=== PATIENT | male | born 1955 ===

== ENCOUNTER 2020-05-04 12:31 | Outpatient (REF) | payer MEDICARE, MEDICAID, SELFPAY ==
--- NOTE | 2020-05-04 13:30 | CT_ITS ---
EXAMINATION: CT CHEST WITHOUT CONTRAST CLINICAL INFORMATION: Pulmonary nodules COMPARISON: 01/20/2020 TECHNIQUE: A noncontrast CT of the chest is performed with sagittal and coronal reformats. This CT examination was performed using dose optimization techniques as appropriate, variously including the following: *Automated exposure control *Adjustment of mA and/or kV according to patient size (this includes techniques or standardized protocols for targeted exams where dose is matched to indication/reason for exam; i.e. extremities or head) *Use of iterative reconstruction technique DLP: 191 FINDINGS: Moderate centrilobular emphysema. Again demonstrated are multiple subcentimeter nodules which are predominantly peripheral and subpleural. Largest nodule which is pleural-based in the posterior right upper lobe on axial image 236 measures approximately 7 mm and is stable. Other additional previously described nodules are stable. There is a new 4 mm nodule in the left upper lobe on image 170. No mediastinal, hilar, or axillary lymphadenopathy. No pericardial or pleural effusion. IMPRESSION: Centrilobular emphysema with several bilateral pulmonary nodules, the largest measuring 7 mm in the right upper lobe posteriorly. These nodules are stable. However, there is a new 4 mm nodule in the left upper lobe. A follow-up chest CT in 6-12 months is recommended.
== END 2020-05-04 12:32 | disposition home or self-care (01) ==
LOC: HO.CT 12:31
PROVIDERS: PCP Nurse Practitioner Family; Visit Provider Surgery
DX: R91.1 Solitary pulmonary nodule (principal)
CPT/HCPCS: 71250

== ENCOUNTER → 2020-05-19 10:39 | Outpatient (BNVA) | payer MEDICARE, MEDICAID, SELFPAY | PROVIDERS: PCP Nurse Practitioner Family; Visit Provider Surgery | DX: R91.8 Other nonspecific abnormal finding of lung field (principal); F17.200 Nicotine dependence, unspecified, uncomplicated; Z79.899 Other long term (current) drug therapy | CPT/HCPCS: 99214 ==

== ENCOUNTER 2020-06-03 08:48 | Outpatient (REF) | payer MEDICARE, MEDICAID, SELFPAY | END 2020-06-03 08:49 | disposition home or self-care (01) | LOC: HO.LAB 08:48 | PROVIDERS: Visit Provider Internal Medicine | DX: Z20.828 Contact with and (suspected) exposure to other viral communicable diseases (principal) | CPT/HCPCS: U0003 ==

== ENCOUNTER → 2020-06-08 09:27 | Outpatient (BNVA) | payer MEDICARE, MEDICAID, SELFPAY | PROVIDERS: PCP Nurse Practitioner Family; Visit Provider Internal Medicine | DX: R91.8 Other nonspecific abnormal finding of lung field (principal); J44.9 Chronic obstructive pulmonary disease, unspecified; F17.210 Nicotine dependence, cigarettes, uncomplicated | CPT/HCPCS: 99202; 99212 ==

== ENCOUNTER → 2020-07-13 10:40 | Outpatient (BNVA) | payer MEDICARE, MEDICAID, SELFPAY | PROVIDERS: PCP Nurse Practitioner Family; Referring Provider Nurse Practitioner Family; Visit Provider Internal Medicine | DX: J44.9 Chronic obstructive pulmonary disease, unspecified (principal); R05 Cough; R91.8 Other nonspecific abnormal finding of lung field; F17.200 Nicotine dependence, unspecified, uncomplicated; Z79.51 Long term (current) use of inhaled steroids; Z71.6 Tobacco abuse counseling | CPT/HCPCS: 99212 ==

== ENCOUNTER → 2020-10-27 09:07 | Outpatient (BNVA) | payer MEDICARE, MEDICAID, SELFPAY | PROVIDERS: PCP Nurse Practitioner Family; Visit Provider Nurse Practitioner Gerontology | DX: E11.42 Type 2 diabetes mellitus with diabetic polyneuropathy (principal); Z79.4 Long term (current) use of insulin; E78.5 Hyperlipidemia, unspecified; I10 Essential (primary) hypertension | CPT/HCPCS: 82947; 99212 ==

== ENCOUNTER 2020-11-03 10:06 | Outpatient (REF) | payer MEDICARE, MEDICAID, SELFPAY ==
--- NOTE | ~2020-11-03 | CT_ITS ---
EXAMINATION: CT CHEST WITHOUT CONTRAST CLINICAL INFORMATION: Follow-up pulmonary nodules. COMPARISON: CT chest 05/04/2020 TECHNIQUE: Multidetector volumetric CT imaging of the chest was done. Axial MIP volume rendering provided. Sagittal and coronal reformatted images were obtained. This CT examination was performed using dose optimization techniques as appropriate, variously including the following: Automated exposure control adjustment of mA and/or kV according to patient size (this includes techniques or standardized protocols for targeted exams where dose is matched to indication/reason for exam; i.e. extremities or head)Use of iterative reconstruction technique DLP: 162 mGy-cm FINDINGS: PBX TECHNICIAN: Well-expanded lungs. LUNGS: There is centrilobular emphysema with multiple bilateral small pulmonary nodules. There is a 7 mm pleural-based nodule in the right upper lobe axial image 198/5. There are several additional pulmonary nodules seen. All these nodules are stable compared to last exam 05/04/2020. There are no new nodules visualized. There is bibasilar atelectasis. MEDIASTINUM: The thyroid lobes are symmetric and normal. The central trachea and the bronchi are widely patent. Heart size and the great vessels are of normal caliber. There is no pericardial effusion. There are coronary artery calcifications present. PLEURA: There is no pleural effusion. No pleural mass or thickening. AXILLA: No lymphadenopathy. UPPER ABDOMEN: Visualized liver, spleen, pancreas and bilateral adrenal glands are unremarkable. OSSEOUS STRUCTURES: No lytic or sclerotic process is seen. There is mild ventral spondylosis of the lower dorsal spine. No lytic process. CT/CT chest wo con IMPRESSION: Centrilobular emphysema with multiple bilateral pulmonary nodules. The largest pulmonary nodule in the right upper lobe measuring 7 mm is stable. Rest of pulmonary nodules are stable as well. No abnormal mediastinal adenopathy. Recommend follow-up CT in 18-24 months.
== END 2020-11-03 10:07 | disposition home or self-care (01) ==
LOC: HO.CT 10:06
PROVIDERS: Visit Provider Surgery
DX: R91.1 Solitary pulmonary nodule (principal)
CPT/HCPCS: 71250

== ENCOUNTER → 2020-12-01 10:26 | Outpatient (BNVA) | payer MEDICARE, MEDICAID, SELFPAY | PROVIDERS: PCP Nurse Practitioner Family; Visit Provider Surgery | DX: R91.8 Other nonspecific abnormal finding of lung field (principal); J44.9 Chronic obstructive pulmonary disease, unspecified; F17.210 Nicotine dependence, cigarettes, uncomplicated; Z79.899 Other long term (current) drug therapy | CPT/HCPCS: 99212 ==

== ENCOUNTER → 2021-02-27 11:25 | Outpatient (BNVA) | payer MEDICARE, MEDICAID, SELFPAY | PROVIDERS: PCP Nurse Practitioner Family; Visit Provider Nurse Practitioner Gerontology | DX: E11.42 Type 2 diabetes mellitus with diabetic polyneuropathy (principal); E78.5 Hyperlipidemia, unspecified; I10 Essential (primary) hypertension; Z79.4 Long term (current) use of insulin | CPT/HCPCS: 82947; 99212 ==

== ENCOUNTER 2021-03-14 11:13 | Outpatient (REF) | payer MEDICARE, MEDICAID, SELFPAY ==
--- NOTE | ~2021-03-14 | XR_ITS ---
EXAMINATION: XR SHOULDER, RIGHT XR HUMERUS, RIGHT CLINICAL INFORMATION: Pain following trauma. COMPARISON: None TECHNIQUE: AP, scapular Y, and creation views of the right shoulder. AP and lateral views of the right humerus. FINDINGS: Right shoulder: No acute fracture or dislocation. Acromioclavicular marginal osteophytes with superior dystrophic calcification. Small lateral subacromial spurs. Small acromial glenohumeral marginal osteophytes. No osseous erosion. Right humerus: No acute fracture or dislocation. No lytic or blastic osseous lesion. No abnormal soft tissue calcification. XR/XR shoulder RT min 2V IMPRESSION: Right shoulder: Moderate acromioclavicular osteoarthritis. Dystrophic calcification superior to the acromioclavicular joint. Mild cortical humeral osteoarthritis. Right humerus: No acute osseous abnormality.
--- NOTE | ~2021-03-14 | XR_ITS ---
EXAMINATION: XR SHOULDER, RIGHT XR HUMERUS, RIGHT CLINICAL INFORMATION: Pain following trauma. COMPARISON: None TECHNIQUE: AP, scapular Y, and creation views of the right shoulder. AP and lateral views of the right humerus. FINDINGS: Right shoulder: No acute fracture or dislocation. Acromioclavicular marginal osteophytes with superior dystrophic calcification. Small lateral subacromial spurs. Small acromial glenohumeral marginal osteophytes. No osseous erosion. Right humerus: No acute fracture or dislocation. No lytic or blastic osseous lesion. No abnormal soft tissue calcification. XR/XR humerus RT IMPRESSION: Right shoulder: Moderate acromioclavicular osteoarthritis. Dystrophic calcification superior to the acromioclavicular joint. Mild cortical humeral osteoarthritis. Right humerus: No acute osseous abnormality.
== END 2021-03-14 11:14 | disposition home or self-care (01) ==
LOC: HO.HMGCX 11:13
PROVIDERS: PCP Nurse Practitioner Family; Visit Provider Nurse Practitioner Family
DX: Z13.89 Encounter for screening for other disorder (principal)
CPT/HCPCS: 73030; 73060

== ENCOUNTER → 2021-07-16 13:06 | Outpatient (BNVA) | payer MEDICARE, MEDICAID, SELFPAY | PROVIDERS: PCP Nurse Practitioner Family; Visit Provider Nurse Practitioner Gerontology | DX: E11.42 Type 2 diabetes mellitus with diabetic polyneuropathy (principal); E78.5 Hyperlipidemia, unspecified; I10 Essential (primary) hypertension; Z79.4 Long term (current) use of insulin | CPT/HCPCS: Q3014 ==

== ENCOUNTER 2021-09-23 11:28 | Emergency (ER) | payer MEDICARE, MEDICAID, SELFPAY ==
[2021-09-23 11:30] VITALS: BP 151/70; PULSE 77; RESP 16; TEMP 36.7; O2SAT 99; BMI 24.2
== END 2021-09-23 11:51 | disposition left against medical advice (07) ==
PROVIDERS: Emergency Provider Emergency Medicine; PCP Nurse Practitioner Family
DX: R33.9 Retention of urine, unspecified (principal)
CPT/HCPCS: 99281

== ENCOUNTER → 2021-10-15 14:07 | Outpatient (BNVA) | payer MEDICARE, MEDICAID, SELFPAY | PROVIDERS: PCP Nurse Practitioner Family; Visit Provider Registered Nurse Diabetes Educator | DX: E11.42 Type 2 diabetes mellitus with diabetic polyneuropathy (principal); E78.5 Hyperlipidemia, unspecified; F17.200 Nicotine dependence, unspecified, uncomplicated; Z45.89 Encounter for adjustment and management of other implanted devices | CPT/HCPCS: 95250 ==

== ENCOUNTER 2021-10-17 10:23 | Outpatient (REF) | payer MEDICARE, MEDICAID, SELFPAY ==
[2021-10-17 12:11] LABS: Estimated Average Glucose 146 mg/dL; Hemoglobin A1c % 6.7 %
[2021-10-17 12:36] LABS: Alanine Aminotransferase 11 U/L (0-40); Albumin Level 3.6 g/dL (3.5-5.0); Alkaline Phosphatase 57 U/L (39-117); Anion Gap 12 (12-20); Aspartate Amino Transferase 14 U/L (5-37); Bilirubin Total 0.4 mg/dL (0.0-1.0); Blood Urea Nitrogen 13 mg/dL (9-16); Calcium 9.4 mg/dL (8.4-10.2); Carbon Dioxide 28 mmol/L (22-29); Chloride 94 mmol/L (96-108); Cholesterol 90 mg/dL; Estimated Glomerular Filt Rate > 60; Glucose Fasting 181 mg/dL (60-99); HDL Cholesterol 36 mg/dL; LDL Cholesterol Calculated 28 mg/dl; Potassium 4.2 mmol/L (3.3-5.1); Sodium 130 mmol/L (135-145); Total Protein 7.3 g/dL (6.5-8.0); Triglycerides 134 mg/dL
[2021-10-17 12:41] LABS: Creatinine Urine 52.24 mg/dL; Microalbum/Creatinine Ratio Ur 11.4 ug/mg cr
[2021-10-18 06:40] LABS: LDL Cholesterol Direct 32 mg/dL (<100)
== END 2021-10-17 10:24 | disposition home or self-care (01) ==
LOC: HO.LAB 10:23
PROVIDERS: Visit Provider Nurse Practitioner Gerontology
DX: E11.42 Type 2 diabetes mellitus with diabetic polyneuropathy (principal)
CPT/HCPCS: 36415; 80053; 80061; 82043; 83036; 83721

== ENCOUNTER → 2021-10-29 14:23 | Outpatient (BNVA) | payer MEDICARE, MEDICAID, SELFPAY | PROVIDERS: Visit Provider Nurse Practitioner Gerontology | DX: E11.42 Type 2 diabetes mellitus with diabetic polyneuropathy (principal); E78.5 Hyperlipidemia, unspecified; I10 Essential (primary) hypertension; Z79.4 Long term (current) use of insulin | CPT/HCPCS: 82947; 99212 ==

== ENCOUNTER 2021-11-09 11:14 | Outpatient (REF) | payer MEDICARE, MEDICAID, SELFPAY ==
--- NOTE | ~2021-11-09 | CT_ITS ---
EXAMINATION: CT CHEST WITHOUT CONTRAST CLINICAL INFORMATION: Follow-up pulmonary nodules COMPARISON: Previous chest CT November 2020 TECHNIQUE: Multidetector volumetric CT imaging of the chest was done. Axial MIP volume rendering provided. Sagittal and coronal reformatted images were obtained. This CT examination was performed using dose optimization techniques as appropriate, variously including the following: *Automated exposure control *Adjustment of mA and/or kV according to patient size (this includes techniques or standardized protocols for targeted exams where dose is matched to indication/reason for exam; i.e. extremities or head) *Use of iterative reconstruction technique DLP: 181 mGy-cm FINDINGS: LUNGS: Exam is limited due to artifact from respiratory motion. There is evidence of emphysema. There are multiple predominantly calcified pulmonary nodules that are stable. Largest pulmonary nodule measures 6 mm in the right upper lobe axial image 177 series 5. There are increased peripheral reticular markings and cystic changes are seen questionable for mild interstitial disease. No endobronchial or endotracheal lesion is seen. MEDIASTINUM: There is mild coronary artery calcification. The mediastinum is otherwise normal. PLEURA: There is no pleural effusion. No pleural mass or thickening. AXILLA: No lymphadenopathy. UPPER ABDOMEN: There are small calcifications in the pancreas. OSSEOUS STRUCTURES: There are degenerative changes of the spine. CT/CT chest wo con IMPRESSION: Limited exam due to respiratory motion. Stable pulmonary nodules. Emphysema. Question mild interstitial lung disease. Fleischner guidelines were followed.
== END 2021-11-09 11:15 | disposition home or self-care (01) ==
LOC: HO.CT 11:14
PROVIDERS: PCP Nurse Practitioner Family; Visit Provider Surgery
DX: R91.8 Other nonspecific abnormal finding of lung field (principal)
CPT/HCPCS: 71250

== ENCOUNTER 2021-11-26 10:04 | Outpatient (REF) | payer MEDICARE, MEDICAID, SELFPAY ==
[2021-11-26 12:46] LABS: Prostate Specific Antigen Scr 0.09 ng/mL (<0.05-4.0)
== END 2021-11-26 10:05 | disposition home or self-care (01) ==
LOC: HO.HMGCLDS 10:04
PROVIDERS: PCP Nurse Practitioner Family; Visit Provider Nurse Practitioner Family
DX: Z12.5 Encounter for screening for malignant neoplasm of prostate (principal)
CPT/HCPCS: 36415; 84153

== ENCOUNTER → 2021-11-30 11:13 | Outpatient (BNVA) | payer MEDICARE, MEDICAID, SELFPAY | PROVIDERS: PCP Nurse Practitioner Family; Visit Provider Surgery | DX: R91.8 Other nonspecific abnormal finding of lung field (principal); F17.210 Nicotine dependence, cigarettes, uncomplicated | CPT/HCPCS: 99212 ==

== ENCOUNTER 2022-08-18 17:02 | Emergency (ER) | payer MEDICARE, MEDICAID, SELFPAY ==
--- NOTE | ~2022-08-18 | CT_ITS ---
EXAMINATION: CT CHEST WITHOUT CONTRAST CLINICAL INFORMATION: Productive cough COMPARISON: 11/09/2021 TECHNIQUE: Multidetector volumetric CT imaging of the chest was done. Axial MIP volume rendering provided. Sagittal and coronal reformatted images were obtained. This CT examination was performed using dose optimization techniques as appropriate, variously including the following: *Automated exposure control *Adjustment of mA and/or kV according to patient size (this includes techniques or standardized protocols for targeted exams where dose is matched to indication/reason for exam; i.e. extremities or head) *Use of iterative reconstruction technique DLP: 328 mGy-cm FINDINGS: The thoracic inlet is felt to be comparable to previous. The axillary regions are unremarkable. Partially imaged upper abdominal structures once again show full appearing adrenal glands. Centrally coronary calcifications are noted. There is no bulky adenopathy. This is a noncontrast study but the hilar regions are felt to be comparable to previous. Imaging the lung lin. Right lung; Once again significant COPD. Motion significantly limits this exam. Right basilar opacity consistent with infiltrate. Pleural-based nodularity on image 126. New from previous. Measures 3 mm. Stable appearing nodule on image 180. Adjacent to the pleura. Measures 5 to 6 mm. Posterior pleural-based nodule on image 189. This appears slightly more prominent than previous. Measures 7 mm. Attention to follow-up. Stable-appearing 4 mm nodule on image 220 Stable 3 mm pleural nodule on image 228 Nodule on image 239 anterior. Appears slightly more prominent than previous. Measures 5 mm. Attention to follow-up. There is a new pleural-based nodule on image 277. 3 mm. Again motion limits evaluation in the lower lung zones. Increasing pleural-based nodule on image 285 measures 4 mm Nodule on image 372 measures 6 mm. Measures slightly more prominent than previous at which time it measured 5 mm. Left lung; Again significant COPD. There is motion here which degrades imaging. Stable appearing 4 mm nodule on image 140 Increasing density at the left base consistent with atelectasis or infiltrate. Possible 5 mm nodule posterior on image 274. Difficult to say if this was present previously. There was density here previously. Measures 5 mm. Some increasing probable chronic change in the lingula. Review of the bone windows does not demonstrate evidence for bony lesion. CT/CT chest wo IV con IMPRESSION: COPD here and motion limits this exam but I suspect right lower lobe infiltrate greater than left lower lobe. In addition multiple areas of nodularity. Some are new from previous while others are stable and still others appear slightly more prominent. Recommendation is low-dose noncontrast study in 3 months for continued evaluation.
--- NOTE | ~2022-08-18 | XR_ITS ---
EXAMINATION: XR CHEST CLINICAL INFORMATION: Chest pain, cough COMPARISON: Gar[employer] film from CT dated 11/09/2021 TECHNIQUE: Frontal view of the chest was obtained. FINDINGS: Subsegmental atelectasis at the right lung base. On the left some ill-defined opacity left midlung and left base consistent with small areas of infiltrate or atelectasis. The cardiac silhouette is within normal limits. The hilar regions do not appear pathologically enlarged. XR/XR chest 1V IMPRESSION: Left midlung and left basilar infiltrate. Subsegmental atelectasis at the right base. Follow-up films recommended after treatment to assess for resolution
[2022-08-18 17:10] VITALS: BP 137/79; PULSE 81; RESP 17; TEMP 36.7; O2SAT 96; BMI 29.0
--- NOTE | 2022-08-18 17:11 | ECG_ITS ---
Test Reason : CHEST PAIN Blood Pressure : / mmHG Vent. Rate : 076 BPM Atrial Rate : 076 BPM P-R Int : 172 ms QRS Dur : 098 ms QT Int : 364 ms P-R-T Axes : 073 014 045 degrees QTc Int : 409 ms Sinus rhythm with Premature ventricular complexes Otherwise normal ECG When compared with ECG of 17-MAR-2018 07:51, Premature ventricular complexes is now Present Referred By: Nicole Cardona Electronically Signed By:LYNDSAY GAMING MD
--- NOTE | 2022-08-18 17:12 | ED.GENADULT ---
HPI - General Adult General Chief complaint: General Medical Stated complaint: Chest pain w/ cough per EMS Time Seen by Provider: 08/18/22 17:11 Source: patient and EMS Mode of arrival: EMS Limitations: no limitations History of Present Illness HPI narrative: This is a 67-year-old male past medical history significant for emphysema, COPD, hypertension, hyperlipidemia, schizophrenia, current daily smoker, diabetes presenting to the emergency department from retirement complaints chest pain, shortness of breath and cough worsening over the past three days. According to patient chest pain is intermittent in nature, sharp, substernal and nonradiating. Shortness of breath both at rest and with exertion. Patient reports productive cough. Reports multiple sick contacts at home w/ similar symptoms. Denies fevers, chills, nausea, vomiting, abdominal pain, headache, vision changes, dizziness, weakness. Related Data Home Medications Medication Instructions Recorded Confirmed benztropine 2 mg tablet 2 mg PO BID 11/22/20 08/18/22 propranolol 20 mg tablet 10 mg PO DAILY 02/27/21 08/18/22 divalproex 500 mg tablet,extended 1,500 mg PO BEDTIME 07/16/21 08/18/22 release 24 hr olanzapine 10 mg tablet 10 mg PO BID 07/16/21 08/18/22 pen needle, diabetic 31 gauge x #50 ea 07/16/21 04/03/2210/17 (BD Ultra-Fine Mini Pen Needle) fluphenazine HCl 5 mg tablet 5 mg PO BID 11/26/21 08/18/22 gabapentin 300 mg capsule 300 mg PO TID 11/26/21 08/18/22 vitamin E mixed 1,000 unit capsule 1,000 unit PO DAILY 11/26/21 08/18/22 acetaminophen 650 mg 650 mg PO Q6H PRN pain 08/18/22 08/18/22 tablet,extended release (Tylenol 8 Hour) cholecalciferol (vitamin D3) 125 125 mcg PO DAILY 08/18/22 08/18/22 mcg (5,000 unit) capsule dulaglutide 0.75 mg/0.5 mL 0.75 mg subcut FR@0900 08/18/22 08/18/22 subcutaneous pen injector (Trulicity) omeprazole 20 mg capsule,delayed 20 mg PO BID 08/18/22 08/18/22 release propranolol 20 mg tablet 1 tab PO BEDTIME 08/18/22 08/18/22 sennosides 8.6 mg tablet (senna) 17.2 mg PO DAILY PRN Constipation 08/18/22 08/18/22 Previous Rx's Medication Instructions Recorded blood-glucose meter (FreeStyle #1 ea 05/24/21 Lite Meter kit) insulin degludec 100 unit/mL (3 10 unit (0.1 mL) subcut DAILY #15 01/31/22 mL) subcutaneous pen (Tresiba mL FlexTouch U-100 insulin) atorvastatin 10 mg tablet 10 mg PO DAILY #30 tabs 03/12/22 docusate sodium 100 mg capsule 100 mg PO DAILY PRN constipation 03/28/22 #30 caps lisinopril 10 1 tab PO DAILY 30 days #30 tabs 07/11/22 mg-hydrochlorothiazide 12.5 mg tablet amlodipine 10 mg tablet 10 mg PO DAILY 90 days #90 tabs 07/30/22 umeclidinium 62.5 mcg/actuation 1 inh PO DAILY #30 ea 08/12/22 blister powder for inhalation (Incruse Ellipta) aspirin 81 mg tablet,delayed 81 mg PO DAILY #90 tabs 08/13/22 release (Adult Low Dose Aspirin) albuterol sulfate 90 mcg/actuation 2 inh inhalation Q4-6H PRN 08/18/22 breath activated powder inhaler shortness of breath or wheezing #1 ea benzonatate 100 mg capsule 100 mg PO BID PRN cough #20 caps 08/18/22 prednisone 20 mg tablet 20 mg PO DAILY 5 days #5 tabs 08/18/22 Allergies Allergy/AdvReac Type Severity Reaction Status Date / Time No Known Allergies Allergy Mild NOT Verified 04/03/22 12:19 APPLICABLE Review of Systems Review of Systems: Constitutional : No Weight loss, No Fever, No Chills, No Fatigue, No Malaise ENT/Mouth : No sore throat, No Rhinorrhea Eyes: No Eye Pain, No Swelling, No Redness Cardiovascular : + Chest Pain, + SOB, No Dyspnea on Exertion, No Orthopnea, No Edema, No Palpitations Respiratory : + Cough, No Sputum, No Wheezing Gastrointestinal : No Nausea, No Vomiting, No Diarrhea, No Constipation, No abdominal Pain, No Hematochezia, No Melena Genitourinary : No Dysuria, No Urinary Frequency, No Hematuria, Musculoskeletal : No joint pain, No Myalgias, No Joint Swelling Skin : No Skin Lesions, No rash Neuro : No Weakness, No Numbness, No Dizziness, No Headache Psych : No Anxiety/Panic, No Depression All other systems reviewed and are negative Yes all other systems are reviewed and are negative [facility] Past Medical History Attestation statement: The following information was validated with the patient. Source: old records reviewed and nursing notes reviewed Medical History Centrilobular emphysema COPD (chronic obstructive pulmonary disease) Cough Essential hypertension Hyperlipidemia LDL goal <70 Multiple pulmonary nodules Schizophrenia Smoker Type 2 diabetes mellitus with diabetic polyneuropathy Family History Family History Father Prostate cancer Diabetes Mother Diabetes Hypertension CVD (cardiovascular disease) Social History Social History Housing: Assisted Living Facility Alcohol intake: current Alcohol intake frequency: holidays/special occasions only Patient Tobacco Use Status: Current everyday Tobacco user Cigarette Packs Per Day: 3.5 Cigarettes Per Day: 70 Smoked in Last 30 Days: Yes Use of substances other than those prescribed or required for medical reasons: No Advance Directives: Yes Advance Directives on File: Yes Advance Directives Date on File: 05/04/20 Current occupational status: disabled Physical Exam ED Vital Signs: Vital Signs - 24 hr 08/18/22 17:10 08/18/22 17:42 08/18/22 18:51 Temperature 98.1 F Pulse Rate 81 71 86 Respiratory Rate 17 18 22 H Blood Pressure 137/79 138/89 Pulse Oximetry 96 97 Oxygen Delivery Method Room Air Room Air 08/18/22 20:03 08/18/22 20:16 Temperature 98.0 F Pulse Rate 81 Respiratory Rate 25 H Blood Pressure 134/84 Pulse Oximetry 98 92 Oxygen Delivery Method Room Air BMI result Body Mass Index 29.0 vss Appearance: Alert.? Oriented X3.? No acute distress.? Head: Normocephalic, atraumatic, no step-offs or deformities Eyes: Pupils equal, round and reactive to light.? ENT: Pharynx normal.? Neck: Normal inspection.? Neck supple.? CVS: Normal heart rate and rhythm.? Pulses normal.? Respiratory: No respiratory distress.? Breath sounds diminished bilaterally w/ wheezing?and crackles Abdomen: Soft and nontender.? Skin: Skin warm and dry.? Normal skin color.? Normal skin turgor.? Extremities: No lower extremity edema.? No calf ttp. 5/5 strength to bilateral upper and lower extremities Neuro: Oriented X 3.? No motor deficit.? No sensory deficit. CN 2-12 intact Course Reevaluation(s) Reevaluation #1: CBC appears to be within normal limits. Chemistry with hyponatremia 127 likely secondary to poor p.o. intake. BUN slightly elevated likely secondary to dehydration. Negative lactic. Magnesium 1.5. Will hang to g of Mag at this time. Patient is noted to have bilateral lower lobe pneumonia, being covered with ceftriaxone. Patient was ambulated and he was saturating 92% after ambulation however he became tachycardic and reported weakness and malaise therefore patient sat down. Plan is to admit patient to the hospital for pneumonia, weakness. Time: 20:28 Medications Administered Discontinued Medications Generic Name Dose Route Start Last Admin Trade Name Freq PRN Reason Stop Dose Admin Albuterol Sulfate 5 mg/ 7.5 mg 08/18/22 17:19 08/18/22 17:41 Albuterol Sulfate 2.5 mg INHALE 08/18/22 17:20 7.5 mg ONCE ONE Administration Ceftriaxone Sodium 1 gm/ 50 mls @ 100 mls/hr 08/18/22 17:48 08/18/22 18:50 Sodium Chloride IV 08/18/22 18:17 Infused ONCE ONE Infusion Sodium Chloride 1,000 mls @ 999 mls/hr 08/18/22 18:45 08/18/22 19:54 Ns IV 08/18/22 19:45 Infused .Q1H1M DESHAUN Infusion Sodium Chloride 1,000 mls @ 999 mls/hr 08/18/22 18:45 08/18/22 20:03 Ns IV 08/18/22 19:45 Infused .Q1H1M DESHAUN Infusion Medical Decision Making Medical Decision Making [facility] Narrative: 1716 67-year-old male presents with chest pain, shortness of breath and productive cough times a three days worsening. Multiple sick contacts. Physical exam with diminished breath sounds bilaterally w/ wheezing and crackles Likely viral infection vs bronchitis vs pna. Unlikely PE, ACS, dissection. Plan at this time basic labs, imaging, viral testing. Differential Diagnosis Differential Diagnoses: The differential diagnosis associated with the presentation includes Likely viral infection vs bronchitis vs pna. Unlikely PE, ACS, dissection. Admission/Observation Consideration of admission/observation: Escalation of care including admission/observation considered Lab Data MDM Lab Attestation statement: I reviewed the patient's lab results. 08/18/22 17:50 08/18/22 17:50 Labs: Lab Results 08/18/22 08/18/22 08/18/22 Range/Units 17:50 17:50 17:50 WBC 10.7 (4.8-10.8) X10*3/uL RBC 3.96 L (4.60-5.80) X10*6/uL Hgb 11.4 L (14.0-18.0) g/dl Hct 33.8 L (42.0-52.0) % MCV 85.4 (80.0-98.0) fL MCH 28.8 (27.0-33.0) pg MCHC 33.7 (31.0-36.0) g/dl RDW 13.0 (11.0-16.0) % Plt Count 214 (160-400) X10*3/uL MPV 9.3 L (9.4-12.4) fL Immature Gran % (Auto) 2.3 H (0.0-0.4) % Neut % (Auto) 52.1 (45-73) % Lymph % (Auto) 29.9 (20-40) % [place] % (Auto) 11.4 H (2-11) % Eos % (Auto) 3.9 (0-4) % Baso % (Auto) 0.4 (0-2) % Lymph # (Auto) 3.2 (1.2-4.9) X10*3/uL [place] # (Auto) 1.2 (0.1-1.2) X10*3/uL Eos # (Auto) 0.4 (0.0-0.4) X10*3/uL Baso # (Auto) 0.0 (0.0-0.2) X10*3/uL Abs Immat Gran (auto) 0.25 H (0.00-0.03) X10*3/uL Absolute Neuts (auto) 5.6 (2.0-8.3) x10*3/uL Absolute Nucleated RBC 0.000 (0.0-0.012) X10*3/uL Nucleated RBC % (auto) 0.0 (0.0-0.2) /100WBC Sodium 127 L (135-145) mmol/L Potassium 3.9 (3.3-5.1) mmol/L Chloride 91 L (96-108) mmol/L Carbon Dioxide 28 (22-29) mmol/L Anion Gap 12 (12-20) BUN 17 H (9-16) mg/dL Creatinine 1.15 (0.5-1.4) mg/dL Estim Creat Clear Calc 62.5 Estimated GFR > 60 Random Glucose 151 H (60-115) mg/dL Lactic Acid (0.5-2.0) mmol/L Calcium 9.4 (8.4-10.2) mg/dL Magnesium 1.5 L (1.6-2.6) mg/dL Total Bilirubin 0.3 (0.0-1.0) mg/dL AST 11 (5-37) U/L ALT 9 (0-40) U/L Alkaline Phosphatase 49 (39-117) U/L Troponin I High Sens 3.4 (<3.5-35.0) ng/L B-Natriuretic Peptide (<100) pg/mL Total Protein 7.0 (6.5-8.0) g/dL Albumin 3.5 (3.5-5.0) g/dL Urine Color Urine Appearance Urine pH (5.0-9.0) Ur Specific [place] (1.005-1.025) Urine Protein (Neg-Trace) mg/dL Urine Glucose (UA) (Negative) mg/dL Urine Ketones (Negative) mg/dL Urine Blood (Negative) Urine Nitrite (Negative) Ur Leukocyte Esterase (Negative) Urine RBC (0-2) /HPF Urine WBC (0-5) /HPF Ur Squamous Epith Cells (0-2) /HPF Urine Bacteria (None Seen) Hyaline Casts (0-2) /LPF COVID-19 (LA) (Negative) COVID-19 Clin Com Influenza Type A (GOMEZ) (Negative) Influenza Type B (GOMEZ) (Negative) Influenza A & B Note 08/18/22 08/18/22 08/18/22 Range/Units 17:50 17:50 17:50 WBC (4.8-10.8) X10*3/uL RBC (4.60-5.80) X10*6/uL Hgb (14.0-18.0) g/dl Hct (42.0-52.0) % MCV (80.0-98.0) fL MCH (27.0-33.0) pg MCHC (31.0-36.0) g/dl RDW (11.0-16.0) % Plt Count (160-400) X10*3/uL MPV (9.4-12.4) fL Immature Gran % (Auto) (0.0-0.4) % Neut % (Auto) (45-73) % Lymph % (Auto) (20-40) % [place] % (Auto) (2-11) % Eos % (Auto) (0-4) % Baso % (Auto) (0-2) % Lymph # (Auto) (1.2-4.9) X10*3/uL [place] # (Auto) (0.1-1.2) X10*3/uL Eos # (Auto) (0.0-0.4) X10*3/uL Baso # (Auto) (0.0-0.2) X10*3/uL Abs Immat Gran (auto) (0.00-0.03) X10*3/uL Absolute Neuts (auto) (2.0-8.3) x10*3/uL Absolute Nucleated RBC (0.0-0.012) X10*3/uL Nucleated RBC % (auto) (0.0-0.2) /100WBC Sodium (135-145) mmol/L Potassium (3.3-5.1) mmol/L Chloride (96-108) mmol/L Carbon Dioxide (22-29) mmol/L Anion Gap (12-20) BUN (9-16) mg/dL Creatinine (0.5-1.4) mg/dL Estim Creat Clear Calc Estimated GFR Random Glucose (60-115) mg/dL Lactic Acid (0.5-2.0) mmol/L Calcium (8.4-10.2) mg/dL Magnesium (1.6-2.6) mg/dL Total Bilirubin (0.0-1.0) mg/dL AST (5-37) U/L ALT (0-40) U/L Alkaline Phosphatase (39-117) U/L Troponin I High Sens (<3.5-35.0) ng/L B-Natriuretic Peptide 17 (<100) pg/mL Total Protein (6.5-8.0) g/dL Albumin (3.5-5.0) g/dL Urine Color Urine Appearance Urine pH (5.0-9.0) Ur Specific [place] (1.005-1.025) Urine Protein (Neg-Trace) mg/dL Urine Glucose (UA) (Negative) mg/dL Urine Ketones (Negative) mg/dL Urine Blood (Negative) Urine Nitrite (Negative) Ur Leukocyte Esterase (Negative) Urine RBC (0-2) /HPF Urine WBC (0-5) /HPF Ur Squamous Epith Cells (0-2) /HPF Urine Bacteria (None Seen) Hyaline Casts (0-2) /LPF COVID-19 (LA) Negative (Negative) COVID-19 Clin Com See Note Influenza Type A (GOMEZ) Negative (Negative) Influenza Type B (GOMEZ) Negative (Negative) Influenza A & B Note See Note 08/18/22 08/18/22 Range/Units 17:50 18:16 WBC (4.8-10.8) X10*3/uL RBC (4.60-5.80) X10*6/uL Hgb (14.0-18.0) g/dl Hct (42.0-52.0) % MCV (80.0-98.0) fL MCH (27.0-33.0) pg MCHC (31.0-36.0) g/dl RDW (11.0-16.0) % Plt Count (160-400) X10*3/uL MPV (9.4-12.4) fL Immature Gran % (Auto) (0.0-0.4) % Neut % (Auto) (45-73) % Lymph % (Auto) (20-40) % [place] % (Auto) (2-11) % Eos % (Auto) (0-4) % Baso % (Auto) (0-2) % Lymph # (Auto) (1.2-4.9) X10*3/uL [place] # (Auto) (0.1-1.2) X10*3/uL Eos # (Auto) (0.0-0.4) X10*3/uL Baso # (Auto) (0.0-0.2) X10*3/uL Abs Immat Gran (auto) (0.00-0.03) X10*3/uL Absolute Neuts (auto) (2.0-8.3) x10*3/uL Absolute Nucleated RBC (0.0-0.012) X10*3/uL Nucleated RBC % (auto) (0.0-0.2) /100WBC Sodium (135-145) mmol/L Potassium (3.3-5.1) mmol/L Chloride (96-108) mmol/L Carbon Dioxide (22-29) mmol/L Anion Gap (12-20) BUN (9-16) mg/dL Creatinine (0.5-1.4) mg/dL Estim Creat Clear Calc Estimated GFR Random Glucose (60-115) mg/dL Lactic Acid 0.7 (0.5-2.0) mmol/L Calcium (8.4-10.2) mg/dL Magnesium (1.6-2.6) mg/dL Total Bilirubin (0.0-1.0) mg/dL AST (5-37) U/L ALT (0-40) U/L Alkaline Phosphatase (39-117) U/L Troponin I High Sens (<3.5-35.0) ng/L B-Natriuretic Peptide (<100) pg/mL Total Protein (6.5-8.0) g/dL Albumin (3.5-5.0) g/dL Urine Color Yellow Urine Appearance Clear Urine pH 6.5 (5.0-9.0) Ur Specific [place] 1.015 (1.005-1.025) Urine Protein Negative (Neg-Trace) mg/dL Urine Glucose (UA) 250 H (Negative) mg/dL Urine Ketones Negative (Negative) mg/dL Urine Blood Trace H (Negative) Urine Nitrite Negative (Negative) Ur Leukocyte Esterase Negative (Negative) Urine RBC 3-5 H (0-2) /HPF Urine WBC 0-5 (0-5) /HPF Ur Squamous Epith Cells 0-2 (0-2) /HPF Urine Bacteria None Seen (None Seen) Hyaline Casts 0-2 (0-2) /LPF COVID-19 (LA) (Negative) COVID-19 Clin Com Influenza Type A (GOMEZ) (Negative) Influenza Type B (GOMEZ) (Negative) Influenza A & B Note Independent Interpretation I performed an independent interpretation of an: Plain X-Ray Chronic Conditions Patient?s care impacted by: Diabetes and Hypertension Core Measures AMI core measures followed: Yes Measure exclusions: not indicated Discharge Plan Discharge Clinical Impression: Pneumonia, Acute hyponatremia Patient Disposition: Admitted As Inpatient Additional Instructions: Take your medications as prescribed. If you were prescribed antibiotics today, it is important that you take your medication to their entirety, do not skip any doses, do not finish them early. Follow-up with your primary care provider this week. Return to the emergency department with new or worsening symptoms. Such as fevers, chills, chest pain, shortness of breath, nausea, vomiting, dizziness, headache, vision changes, lethargy In case of emergency call 911
[2022-08-18] MEDS: Albuterol Sulfate 5 MG, Albuterol Sulfate (0.083%) 2.5 MG 7.5 MG INHALE (17:41)
[2022-08-18 17:42] VITALS: PULSE 71; RESP 18; O2SAT 94
[2022-08-18 17:57] LABS: MANUAL DIFF FLAG NO
[2022-08-18 17:59] LABS: Appearance Urine Clear; Color Urine Yellow; Glucose Urine UA 250 mg/dL (Negative); Leukocyte Esterase Urine Negative (Negative); Nitrite Urine Negative (Negative); PH 6.5 (5.0-9.0); Specific Gravity - Urine 1.015 (1.005-1.025); UMIC TRIGGER UACC YES; Urine Blood Trace (Negative); Urine Ketones Negative (Negative); Urine Protein Negative (Neg-Trace)
--- NOTE | 2022-08-18 17:59 | PC.NURSE ---
pt resting on stretcher, duoneb helping pt sat 100%. IV placed, labs drawn, EKG complete. awaiting blood cultures and lactic to begin IV abx
[2022-08-18 18:04] LABS: Bacteria Urine None Seen (None Seen); Hyaline Casts Urine 0-2 /LPF (0-2); Squamous Epithelial Cell Urine 0-2 /HPF (0-2); WBC Urine 0-5 /HPF (0-5)
[2022-08-18 18:08] LABS: Basophils Percent Auto 0.4 % (0-2); Eosinophils Absolute Auto 0.4 X10*3/uL (0.0-0.4); Eosinophils Percent Auto 3.9 % (0-4); Hematocrit 33.8 % (42.0-52.0); Hemoglobin 11.4 g/dl (14.0-18.0); Imm Gran Abs Auto 0.25 X10*3/uL (0.00-0.03); Imm Gran Pct Auto 2.3 % (0.0-0.4); Lymphocytes Absolute Auto 3.2 X10*3/uL (1.2-4.9); Lymphocytes Percent Auto 29.9 % (20-40); Mean Corpuscular HGB Conc 33.7 g/dl (31.0-36.0); Mean Corpuscular Hemoglobin 28.8 pg (27.0-33.0); Mean Corpuscular Volume 85.4 fL (80.0-98.0); Mean Platelet Volume 9.3 fL (9.4-12.4); Monocytes Absolute Auto 1.2 X10*3/uL (0.1-1.2); Monocytes Percent Auto 11.4 % (2-11); Neutrophils Absolute Auto 5.6 x10*3/uL (2.0-8.3); Neutrophils Percent Auto 52.1 % (45-73); Platelet Count 214 X10*3/uL (160-400); Red Blood Count 3.96 X10*6/uL (4.60-5.80); White Blood Count 10.7 X10*3/uL (4.8-10.8)
[2022-08-18 18:13] LABS: COVID-19 Test Negative (Negative); IDNOW Serial# 16C4AD1C; IDNOW Serial# BCCEAD1C; Influenza A Negative (Negative); Influenza B2 Negative (Negative)
[2022-08-18 18:16] LABS: Alanine Aminotransferase 9 U/L (0-40); Albumin Level 3.5 g/dL (3.5-5.0); Alkaline Phosphatase 49 U/L (39-117); Anion Gap 12 (12-20); Aspartate Amino Transferase 11 U/L (5-37); Bilirubin Total 0.3 mg/dL (0.0-1.0); Blood Urea Nitrogen 17 mg/dL (9-16); Calcium 9.4 mg/dL (8.4-10.2); Carbon Dioxide 28 mmol/L (22-29); Chloride 91 mmol/L (96-108); Creatinine Clr Calc Pharmacy 62.5; Estimated Glomerular Filt Rate > 60; Glucose Random 151 mg/dL (60-115); Magnesium 1.5 mg/dL (1.6-2.6); Potassium 3.9 mmol/L (3.3-5.1); Sodium 127 mmol/L (135-145)
[2022-08-18] MEDS: cefTRIAXone sodium 1 GM in 0.9 % Sodium Chloride 50 ML IV (18:19)
[2022-08-18 18:20] LABS: B Type Natriuretic Peptide 17 pg/mL (<100); Troponin-I High Sensitivity 3.4 ng/L (<3.5-35.0)
[2022-08-18 18:36] LABS: Lactic Acid 0.7 mmol/L (0.5-2.0)
[2022-08-18] MEDS: 0.9 % Sodium Chloride 1,000 ML 999 ML IV ×2 (18:48→19:07)
[2022-08-18 18:51] VITALS: BP 138/89; PULSE 86; RESP 22; O2SAT 97
--- NOTE | 2022-08-18 19:18 | PHA.MEDREC ---
Pharmacy Consult ? Medication Reconciliation Pharmacy has completed the medication reconciliation. Unable to confirm Tresiba dose at this time because [facility] outpatient is closed. Pharmacy will follow up in the morning to confirm units. Patient came with med list.
[2022-08-18 20:03] VITALS: BP 134/84; PULSE 81; RESP 25; TEMP 36.7; O2SAT 98
[2022-08-18 20:16] VITALS: O2SAT 92
--- NOTE | 2022-08-18 20:16 | PC.NURSE ---
Addendum entered by Do Bermudez 08/18/22 20:20: pt having labored breathing while ambulating, pt sat back in bed, labored breathing continued for about three minutes after ambulating Original Note: attempted ambulating pulse ox, pts oxygen decreased to 93% and pt began having some SOB, heart rate also increased to high 90s from baseline 80s
--- NOTE | 2022-08-18 21:12 | PC.NURSE ---
This RN notified that pt was trying to leave AMA. Per Anitra and primary RN Oneida, pt comes from a [facility] and the plan was to be admitted for a PNA. Pt suddenly refusing admission and requesting to leave. [facility] contacted, stating that they would not accept pt as he is not medically cleared. [facility] made aware by Oneida that pt was trying to leave. [facility] advised Oneida to let them know if he left the ED. Pt continues requesting to leave, pt made aware that he is unable to return to the [facility] @ this time as he is not medically cleared. This RN and Anitra SKAGGS offering to call family/friends or a Lyft for a ride. Pt refusing to accept transportation. Pt Romansh speaking only, per Anitra and medical services manager, pt CAOx4 @ this time, answering all questions appropriately and denies SI/HI. Pt does not meet any criteria to hold pt against his will. Pt made aware of the risks of refusing medical care and walking around in cold temperatures. This RN, Anitra SKAGGS, Oneida RN, medical services manager and security trying to convince pt to stay but he continued to request AMA form. Pt signing AMA form. Oneida RN to call [facility] to make them aware that pt left facility AMA.
--- NOTE | 2022-08-18 21:16 | PC.NURSE ---
Late entry: Pt wanting to leave, this RN in with activity therapy specialist explaining that possibly has pneumonia and we are looking to admit him for further management and treatment. Pt declined and began yelling at this RN to take his IV out. This RN informed GILES Ayoub of the situation and requested that she speak with the patient. GILES Ayoub requested that this RN call the residential to see if they will take them back. This RN spoke with the group worker on the phone who stated that they will not take him back especially if he has pneumonia, since we cannot take care of that level of acuity here . This RN went back into the pts room to explain that to the patient. The patient told this RN that he does not care and is going to walk out and either walk to [facility] or the residential. This RN let GILES Ayoub know this. GILES Ayoub stated that she does not feel comfortable with the patient leaving. I explained that I also do not feel comfortable with the patient given that he has a slow, slightly unsteady gait and plans to walk to either his residential or [facility] and it is cold outside. Pt also had slight altered mental status when arriving at the ED, pt was unsure of date (year) and his birthday. GILES Ayoub went in to speak with the patient who told her that he will be leaving. This RN removed the patients IV for safety of the patient. Pt then began walking out of his room. GILES Ayoub aware, this RN continued to speak with the patient requesting that he stay the night to receive care. Pt continued to decline. This RN explained concern to Ginny zinc furnace charger who then went to speak with GILES Ayoub. GILES Ayoub comfortable with pt signing out AMA. This RN expressed concerns regarding letting pt leave including risk for safety. GILES Ayoub aware, pt did sign out AMA. This RN called the group worker to inform them that Armand would be attempting to come back
== END 2022-08-18 21:30 | disposition left against medical advice (07) ==
PROVIDERS: Physician Assistant; Emergency Provider Internal Medicine; PCP Nurse Practitioner Family
DX: J18.9 Pneumonia, unspecified organism (principal); E87.1 Hypo-osmolality and hyponatremia; M54.50 Low back pain, unspecified; Z20.822 Contact with and (suspected) exposure to COVID-19; Z20.828 Contact with and (suspected) exposure to other viral communicable diseases; Z79.899 Other long term (current) drug therapy
CPT/HCPCS: 36415; 71045; 71250; 80053; 81001; 83605; 83735; 83880; 84484; 85025; 87040; 87502; 87635; 93005; 94640; 96361; 96374; 99285; J0696

== ENCOUNTER 2022-10-10 07:45 | Outpatient (REF) | payer MEDICARE, MEDICAID, SELFPAY ==
[2022-10-10 11:39] LABS: MANUAL DIFF FLAG NO
[2022-10-10 11:48] LABS: Appearance Urine Clear; Color Urine Yellow; Glucose Urine UA Negative (Negative); Leukocyte Esterase Urine Negative (Negative); Nitrite Urine Negative (Negative); Specific Gravity - Urine 1.015 (1.005-1.025); UMIC TRIGGER UACC YES; Urine Blood Trace (Negative); Urine Ketones Trace mg/dL (Negative); Urine Protein Negative (Neg-Trace)
[2022-10-10 11:54] LABS: Bacteria Urine None Seen (None Seen); Hyaline Casts Urine 0-2 /LPF (0-2); Squamous Epithelial Cell Urine 0-2 /HPF (0-2); WBC Urine 0-5 /HPF (0-5)
[2022-10-10 12:05] LABS: Basophils Absolute Auto 0.1 X10*3/uL (0.0-0.2); Basophils Percent Auto 0.6 % (0-2); Eosinophils Absolute Auto 0.4 X10*3/uL (0.0-0.4); Eosinophils Percent Auto 4.3 % (0-4); Hematocrit 32.4 % (42.0-52.0); Hemoglobin 11.2 g/dl (14.0-18.0); Imm Gran Pct Auto 1.9 % (0.0-0.4); Lymphocytes Absolute Auto 1.7 X10*3/uL (1.2-4.9); Mean Corpuscular HGB Conc 34.6 g/dl (31.0-36.0); Mean Corpuscular Volume 83.9 fL (80.0-98.0); Mean Platelet Volume 9.2 fL (9.4-12.4); Monocytes Absolute Auto 1.3 X10*3/uL (0.1-1.2); Monocytes Percent Auto 12.5 % (2-11); Neutrophils Absolute Auto 6.7 x10*3/uL (2.0-8.3); Neutrophils Percent Auto 64.7 % (45-73); Platelet Count 239 X10*3/uL (160-400); Red Blood Count 3.86 X10*6/uL (4.60-5.80); Red Cell Distribution Width 12.6 % (11.0-16.0); White Blood Count 10.3 X10*3/uL (4.8-10.8)
[2022-10-10 12:23] LABS: Estimated Average Glucose 169 mg/dL; Hemoglobin A1c % 7.5 %
[2022-10-10 12:25] LABS: Alanine Aminotransferase 8 U/L (0-40); Albumin Level 3.5 g/dL (3.5-5.0); Alkaline Phosphatase 49 U/L (39-117); Anion Gap 16 (12-20); Aspartate Amino Transferase 16 U/L (5-37); Bilirubin Total 0.2 mg/dL (0.0-1.0); Blood Urea Nitrogen 17 mg/dL (9-16); Calcium 9.1 mg/dL (8.4-10.2); Carbon Dioxide 24 mmol/L (22-29); Chloride 87 mmol/L (96-108); Cholesterol 84 mg/dL; Estimated Glomerular Filt Rate > 60; Glucose Fasting 182 mg/dL (60-99); HDL Cholesterol 30 mg/dL; LDL Cholesterol Calculated 34 mg/dl; Potassium 4.5 mmol/L (3.3-5.1); Sodium 122 mmol/L (135-145); Total Protein 6.9 g/dL (6.5-8.0); Triglycerides 101 mg/dL
[2022-10-10 12:32] LABS: TSH reflex Free T4 0.66 uIU/mL (0.32-4.0)
[2022-10-10 12:50] LABS: Creatinine Urine 80.93 mg/dL; Microalbum/Creatinine Ratio Ur 7.4 ug/mg cr
== END 2022-10-10 07:46 | disposition home or self-care (01) ==
LOC: HO.HMGCLDS 07:45
PROVIDERS: PCP Nurse Practitioner Family; Visit Provider Nurse Practitioner Family
DX: E11.42 Type 2 diabetes mellitus with diabetic polyneuropathy (principal)
CPT/HCPCS: 36415; 80053; 80061; 81001; 82043; 83036; 84443; 85025

== ENCOUNTER 2022-10-24 21:37 | Inpatient (IN) | payer MEDICARE, MEDICAID, SELFPAY ==
--- NOTE | ~2022-10-24 | XR_ITS ---
EXAMINATION: XR SHOULDER, LEFT CLINICAL INFORMATION: Left shoulder pain. COMPARISON: Right shoulder radiographs dated 03/14/2021. TECHNIQUE: Three views of the left shoulder. FINDINGS: Mild left acromioclavicular degenerative joint changes are seen. The left glenohumeral joint is intact. There is no acute fracture or dislocation. The visualized left ribs are intact. The soft tissues are unremarkable. XR/XR shoulder LT min 2V IMPRESSION: Mild left acromioclavicular osteoarthritis. No acute fracture.
--- NOTE | ~2022-10-24 | CT_ITS ---
EXAMINATION: CT HEAD WITHOUT CONTRAST CLINICAL INFORMATION: Obtunded. COMPARISON: 04/27/2012 TECHNIQUE: Contiguous axial imaging was performed from the skull base to vertex without intravenous contrast. This CT examination was performed using dose optimization techniques as appropriate, variously including the following: * Automated exposure control * Adjustment of mA and/or kV according to patient size (this includes techniques or standardized protocols for targeted exams where dose is matched to indication/reason for exam; i.e. extremities or head) Use of iterative reconstruction technique DLP: 820 mGy-cm. FINDINGS: There is no evidence of acute intracranial hemorrhage or territorial infarction. No abnormal mass effect or midline shift is seen. Parrish to white matter differentiation is well preserved. No extra-axial fluid collections are identified. No hydrocephalus. Proportional prominence of the ventricles and sulcal spaces is consistent with mild volume loss. Patchy periventricular and deep white matter hypoattenuation is consistent with mild small vessel ischemic changes. The osseous structures and soft tissues are normal. Mild opacification of the right ethmoid air cells. The mastoid air cells and visualized portions of the paranasal sinuses are well aerated. CT/CT head/brain wo IV con IMPRESSION: No acute intracranial pathology.
--- NOTE | ~2022-10-24 | XR_ITS ---
EXAMINATION: XR CHEST CLINICAL INFORMATION: Chest pain COMPARISON: 08/18/2022 TECHNIQUE: 2 views of the chest were obtained. FINDINGS: Mild right basilar atelectasis. Mild patchy left basilar opacities. Mild patchy opacity in the right parahilar region. The remainder lung lin are comparable to previous. The cardiac silhouette is within normal limits. The hilar regions are felt to be comparable. Degeneration in the thoracic spine is noted. No effusion. XR/XR chest 2V IMPRESSION: Bilateral opacities consistent with atelectasis/small areas of infiltrate and probable process in the right midlung/right hilar region. Follow-up recommended after treatment to assess for resolution and establish baseline. 4-6 weeks. There is no failure or effusion. The heart size is within normal limits
--- NOTE | ~2022-10-24 | XR_ITS ---
EXAMINATION: XR SOFT TISSUE NECK CLINICAL INDICATION: Neck pain. COMPARISON: None available. TECHNIQUE: 2 views of the soft tissue neck were obtained. FINDINGS: There is normal cervical lordosis. Mild grade 1 retrolisthesis is seen at C3. Minimal grade 1 anterolisthesis at C5-6. Mild to moderate multilevel marginal osteophyte formation. The vertebral bodies appear intact. The soft tissues are unremarkable. The airways appear patent. XR/XR soft tissue neck IMPRESSION: Degenerative changes in the cervical spine as detailed above. No overt soft tissue abnormality.
[2022-10-24 21:42] VITALS: BP 148/82; PULSE 78; O2SAT 97
--- NOTE | 2022-10-24 21:46 | ECG_ITS ---
Test Reason : CHEST PAIN Blood Pressure : / mmHG Vent. Rate : 075 BPM Atrial Rate : 075 BPM P-R Int : 170 ms QRS Dur : 106 ms QT Int : 364 ms P-R-T Axes : 075 006 043 degrees QTc Int : 406 ms Normal sinus rhythm Normal ECG When compared with ECG of 18-AUG-2022 17:51, Premature ventricular complexes are no longer Present Referred By: Generic ED Physician Electronically Signed By:LYNDSAY GAMING MD
[2022-10-24 21:47] VITALS: BMI 29.8
[2022-10-24 22:00] VITALS: BP 133/78; PULSE 72; RESP 19; TEMP 36.8; O2SAT 98
[2022-10-24 22:12] LABS: Hematocrit 31.9 % (42.0-52.0); Mean Corpuscular HGB Conc 34.5 g/dl (31.0-36.0); Mean Corpuscular Volume 84.2 fL (80.0-98.0); Mean Platelet Volume 9.2 fL (9.4-12.4); Platelet Count 209 X10*3/uL (160-400); Red Blood Count 3.79 X10*6/uL (4.60-5.80); White Blood Count 9.8 X10*3/uL (4.8-10.8)
[2022-10-24 22:33] LABS: Troponin-I High Sensitivity 4.4 ng/L (<3.5-35.0)
[2022-10-24 22:35] LABS: Alanine Aminotransferase 10 U/L (0-40); Albumin Level 3.7 g/dL (3.5-5.0); Alkaline Phosphatase 47 U/L (39-117); Anion Gap 13 (12-20); Aspartate Amino Transferase 17 U/L (5-37); Bilirubin Total 0.2 mg/dL (0.0-1.0); Blood Urea Nitrogen 13 mg/dL (9-16); Carbon Dioxide 25 mmol/L (22-29); Chloride 91 mmol/L (96-108); Creatinine Clr Calc Pharmacy 65.6; Estimated Glomerular Filt Rate > 60; Glucose Random 161 mg/dL (60-115); Potassium 3.9 mmol/L (3.3-5.1); Sodium 125 mmol/L (135-145)
--- NOTE | 2022-10-24 22:48 | ED_ITS ---
HPI - Chest Pain General Chief Complaint: Chest Pain Stated Complaint: chest pain with cough Time Seen by Provider: 10/24/22 22:44 Source: patient Mode of arrival: ambulatory Limitations: no limitations History of Present Illness HPI narrative: Patient's 6 cm old with significant past medical history of COPD, hypertension, hyperlipidemia, schizophrenia, smoker, diabetic comes in for left-sided chest pain radiating to left arm since yesterday patient was here seen on 08/18/22 for similar complaints no distress significant hyponatremia with sodium of 122, patient left against medical advice patient complaining of cough mucopurulent phlegm for last few days no nausea no vomiting no diarrhea no leg swelling Related Data Home Medications Medication Instructions Recorded Confirmed benztropine 2 mg tablet 2 mg PO BID 11/22/20 08/18/22 propranolol 20 mg tablet 10 mg PO DAILY 02/27/21 08/18/22 divalproex 500 mg tablet,extended 1,500 mg PO BEDTIME 07/16/21 08/18/22 release 24 hr olanzapine 10 mg tablet 10 mg PO BID 07/16/21 08/18/22 fluphenazine HCl 5 mg tablet 5 mg PO BID 11/26/21 08/18/22 gabapentin 300 mg capsule 300 mg PO TID 11/26/21 08/18/22 vitamin E mixed 1,000 unit capsule 1,000 unit PO DAILY 11/26/21 08/18/22 omeprazole 20 mg capsule,delayed 20 mg PO BID 08/18/22 08/18/22 release propranolol 20 mg tablet 1 tab PO BEDTIME 08/18/22 08/18/22 sennosides 8.6 mg tablet (senna) 17.2 mg PO DAILY PRN Constipation 08/18/22 08/18/22 Previous Rx's Medication Instructions Recorded blood-glucose meter (FreeStyle #1 ea 05/24/21 Lite Meter kit) docusate sodium 100 mg capsule 100 mg PO DAILY PRN constipation 03/28/22 #30 caps lisinopril 10 1 tab PO DAILY 30 days #30 tabs 07/11/22 mg-hydrochlorothiazide 12.5 mg tablet amlodipine 10 mg tablet 10 mg PO DAILY 90 days #90 tabs 07/30/22 umeclidinium 62.5 mcg/actuation 1 inh PO DAILY #30 ea 08/12/22 blister powder for inhalation (Incruse Ellipta) albuterol sulfate 90 mcg/actuation 2 inh inhalation Q4-6H PRN 08/18/22 breath activated powder inhaler shortness of breath or wheezing #1 ea benzonatate 100 mg capsule 100 mg PO BID PRN cough #20 caps 08/18/22 doxycycline hyclate 100 mg capsule 100 mg PO BID 10 days #20 caps 08/18/22 prednisone 20 mg tablet 20 mg PO DAILY 5 days #5 tabs 08/18/22 cholecalciferol (vitamin D3) 125 125 mcg PO DAILY #90 caps 09/05/22 mcg (5,000 unit) capsule dulaglutide 0.75 mg/0.5 mL 0.75 mg (0.5 mL) subcut FR@0900 #2 09/05/22 subcutaneous pen injector mL (Trulicity) insulin degludec 100 unit/mL (3 10 unit (0.1 mL) subcut DAILY #15 09/05/22 mL) subcutaneous pen (Tresiba mL FlexTouch U-100 insulin) magnesium hydroxide 400 mg/5 mL 5 ml PO BEDTIME PRN for severe 09/05/22 oral suspension (Milk of Magnesia) constipation only #355 mL acetaminophen 650 mg 650 mg PO Q6H PRN pain 30 days 09/23/22 tablet,extended release (Tylenol 8 #120 tabs Hour) atorvastatin 10 mg tablet 10 mg PO DAILY #30 tabs 09/23/22 blood sugar diagnostic (FreeStyle #100 09/23/22 Lite Strips) pen needle, diabetic 31 gauge x #50 09/23/22/16 (BD Ultra-Fine Mini Pen Needle) aspirin 81 mg tablet,delayed 81 mg PO DAILY #90 tabs 10/08/22 release (Adult Low Dose Aspirin) Allergies Allergy/AdvReac Type Severity Reaction Status Date / Time No Known Allergies Allergy Mild NOT Verified 04/03/22 12:19 APPLICABLE Review of Systems Review of Systems: Constitutional : No Weight loss, No Fever, No Chills ENT/Mouth : No sore throat, No Rhinorrhea Eyes: No Eye Pain, No Swelling Cardiovascular : No Chest Pain, no palpitations Respiratory : ++ Cough, ++ Sputum, ++shortness of breath Gastrointestinal : no Nausea, No Vomiting, No Diarrhea, No abdominal Pain, no black stools Genitourinary : No Dysuria, No Urinary Frequency Musculoskeletal : No joint pain, No Myalgias, No Joint Swelling Skin : No Skin Lesions, No rash Neuro : No Weakness, No Numbness, No Dizziness, No Headache Psych : No Anxiety/Panic, No Depression Heme/Lymph: No Bruising, No Lymphadenopathy Endocrine : No Polyuria, No Polydipsia All other systems reviewed and are negative Yes all other systems are reviewed and are negative [facility] Past Medical History Medical History Centrilobular emphysema COPD (chronic obstructive pulmonary disease) Cough Essential hypertension Hyperlipidemia LDL goal <70 Multiple pulmonary nodules Schizophrenia Smoker Type 2 diabetes mellitus with diabetic polyneuropathy Family History Family History Father Prostate cancer Diabetes Mother Diabetes Hypertension CVD (cardiovascular disease) Social History Social History Housing: Assisted Living Facility Alcohol intake: current Alcohol intake frequency: holidays/special occasions only Patient Tobacco Use Status: Current everyday Tobacco user Cigarette Packs Per Day: 3.5 Cigarettes Per Day: 70 Advance Directives: Yes Advance Directives Information Provided: No Advance Directives on File: No Advance Directives Date on File: 05/04/20 Current occupational status: disabled Physical Exam Vital Signs: Vital Signs: Last Vital Signs Temp 97.8 F 10/25/22 03:49 Pulse 69 10/25/22 03:49 Resp 17 10/25/22 03:49 BP 128/77 10/25/22 03:49 Pulse Ox 99 10/25/22 03:49 O2 Del Method Room Air 10/25/22 03:49 BMI result Body Mass Index 29.8 Appearance: Alert. Oriented X3. No acute distress. Eyes: PERRLA, ENT: Pharynx normal. Oral Mucosa moist Neck: Normal inspection. Neck supple. CVS: Normal heart rate and rhythm. Pulses normal. Respiratory: No respiratory distress. Equal air entry bilateral, bilateral wheezing occasional crackles at base Abdomen: Soft and nontender. Bowel sounds are present, no mass palpable, no CVA tenderness Skin: Skin warm and dry. Normal skin color. Normal skin turgor. Extremities: No lower extremity edema. No calf tenderness Neuro: Oriented X 3. No motor deficit. No sensory deficit.No cerebellar signs , cranial nerves II-XII intact Medications Administered Discontinued Medications Generic Name Dose Route Start Last Admin Trade Name Freq PRN Reason Stop Dose Admin Albuterol Sulfate 5 mg/ 0 mg 10/24/22 22:53 10/24/22 23:10 Ipratropium Holiday 0.5 mg INHALE 10/24/22 22:54 1 each ONCE ONE Administration Ceftriaxone Sodium 1 gm/ 50 mls @ 100 mls/hr 10/25/22 00:23 10/25/22 01:38 Sodium Chloride IV 10/25/22 00:52 Infused ONCE ONE Infusion Medical Decision Making Medical Decision Making [facility] Narrative: Patient chronic cough bilateral infiltrate likely bronchitis wrist to have hyponatremia meeting the criteria SIADH with low serum osmolarity of 274 high urine osmolality of 201 and high urine sodium of 46 will admit patient for fluid restriction patient was very lethargic likely from hyponatremia, metabolic encephalopathy Differential Diagnosis Hyponatremia/pneumonia/CHF/ACS/metabolic encephalopathy/hypercapnia Consult Healthcare Provider Management of the patient was discussed with: Hospitalist Lab Data [facility] Lab Attestation statement: I reviewed the patient's lab results. 10/24/22 22:08 10/24/22 22:08 Labs: Lab Results 10/24/22 10/24/22 10/24/22 Range/Units 22:08 22:08 22:08 WBC 9.8 (4.8-10.8) X10*3/uL RBC 3.79 L (4.60-5.80) X10*6/uL Hgb 11.0 L (14.0-18.0) g/dl Hct 31.9 L (42.0-52.0) % MCV 84.2 (80.0-98.0) fL MCH 29.0 (27.0-33.0) pg MCHC 34.5 (31.0-36.0) g/dl RDW 13.0 (11.0-16.0) % Plt Count 209 (160-400) X10*3/uL MPV 9.2 L (9.4-12.4) fL Absolute Nucleated RBC 0.000 (0.0-0.012) X10*3/uL Nucleated RBC % (auto) 0.0 (0.0-0.2) /100WBC PT (10.0-13.1) SEC INR (0.9-1.1) APTT (26.0-36.4) SEC VBG pH (7.32-7.43) VBG pCO2 mmHg VBG pO2 mmHg VBG HCO3 (22-26) mmol/L VBG O2 Saturation % VBG Base Excess mmol/L Sodium 125 L (135-145) mmol/L Potassium 3.9 (3.3-5.1) mmol/L Chloride 91 L (96-108) mmol/L Carbon Dioxide 25 (22-29) mmol/L Anion Gap 13 (12-20) BUN 13 (9-16) mg/dL Creatinine 1.11 (0.5-1.4) mg/dL Estim Creat Clear Calc 65.6 Estimated GFR > 60 Random Glucose 161 H (60-115) mg/dL Osmolality (281-305) mosm/kg Lactic Acid (0.5-2.0) mmol/L Calcium 9.0 (8.4-10.2) mg/dL Magnesium (1.6-2.6) mg/dL Total Bilirubin 0.2 (0.0-1.0) mg/dL AST 17 (5-37) U/L ALT 10 (0-40) U/L Alkaline Phosphatase 47 (39-117) U/L Troponin I High Sens 4.4 (<3.5-35.0) ng/L B-Natriuretic Peptide (<100) pg/mL Total Protein 7.0 (6.5-8.0) g/dL Albumin 3.7 (3.5-5.0) g/dL Urine Color Urine Appearance Urine pH (5.0-9.0) Ur Specific [place] (1.005-1.025) Urine Protein (Neg-Trace) mg/dL Urine Glucose (UA) (Negative) mg/dL Urine Ketones (Negative) mg/dL Urine Blood (Negative) Urine Nitrite (Negative) Ur Leukocyte Esterase (Negative) Urine RBC (0-2) /HPF Urine WBC (0-5) /HPF Ur Squamous Epith Cells (0-2) /HPF Urine Bacteria (None Seen) Hyaline Casts (0-2) /LPF Urine Osmolality (373-1093) mosm/kg Ur Random Sodium mmol/L Ur Random Chloride mmol/L COVID-19 (LA) (Negative) COVID-19 Clin Com 10/24/22 10/24/22 10/24/22 Range/Units 22:08 23:10 23:10 WBC (4.8-10.8) X10*3/uL RBC (4.60-5.80) X10*6/uL Hgb (14.0-18.0) g/dl Hct (42.0-52.0) % MCV (80.0-98.0) fL MCH (27.0-33.0) pg MCHC (31.0-36.0) g/dl RDW (11.0-16.0) % Plt Count (160-400) X10*3/uL MPV (9.4-12.4) fL Absolute Nucleated RBC (0.0-0.012) X10*3/uL Nucleated RBC % (auto) (0.0-0.2) /100WBC PT 10.8 (10.0-13.1) SEC INR 0.9 (0.9-1.1) APTT 32.1 (26.0-36.4) SEC VBG pH (7.32-7.43) VBG pCO2 mmHg VBG pO2 mmHg VBG HCO3 (22-26) mmol/L VBG O2 Saturation % VBG Base Excess mmol/L Sodium (135-145) mmol/L Potassium (3.3-5.1) mmol/L Chloride (96-108) mmol/L Carbon Dioxide (22-29) mmol/L Anion Gap (12-20) BUN (9-16) mg/dL Creatinine (0.5-1.4) mg/dL Estim Creat Clear Calc Estimated GFR Random Glucose (60-115) mg/dL Osmolality 274 L (281-305) mosm/kg Lactic Acid (0.5-2.0) mmol/L Calcium (8.4-10.2) mg/dL Magnesium 1.7 (1.6-2.6) mg/dL Total Bilirubin (0.0-1.0) mg/dL AST (5-37) U/L ALT (0-40) U/L Alkaline Phosphatase (39-117) U/L Troponin I High Sens (<3.5-35.0) ng/L B-Natriuretic Peptide (<100) pg/mL Total Protein (6.5-8.0) g/dL Albumin (3.5-5.0) g/dL Urine Color Urine Appearance Urine pH (5.0-9.0) Ur Specific [place] (1.005-1.025) Urine Protein (Neg-Trace) mg/dL Urine Glucose (UA) (Negative) mg/dL Urine Ketones (Negative) mg/dL Urine Blood (Negative) Urine Nitrite (Negative) Ur Leukocyte Esterase (Negative) Urine RBC (0-2) /HPF Urine WBC (0-5) /HPF Ur Squamous Epith Cells (0-2) /HPF Urine Bacteria (None Seen) Hyaline Casts (0-2) /LPF Urine Osmolality (373-1093) mosm/kg Ur Random Sodium mmol/L Ur Random Chloride mmol/L COVID-19 (LA) (Negative) COVID-19 Clin Com 10/24/22 10/24/22 10/24/22 Range/Units 23:10 23:10 23:10 WBC (4.8-10.8) X10*3/uL RBC (4.60-5.80) X10*6/uL Hgb (14.0-18.0) g/dl Hct (42.0-52.0) % MCV (80.0-98.0) fL MCH (27.0-33.0) pg MCHC (31.0-36.0) g/dl RDW (11.0-16.0) % Plt Count (160-400) X10*3/uL MPV (9.4-12.4) fL Absolute Nucleated RBC (0.0-0.012) X10*3/uL Nucleated RBC % (auto) (0.0-0.2) /100WBC PT (10.0-13.1) SEC INR (0.9-1.1) APTT (26.0-36.4) SEC VBG pH (7.32-7.43) VBG pCO2 mmHg VBG pO2 mmHg VBG HCO3 (22-26) mmol/L VBG O2 Saturation % VBG Base Excess mmol/L Sodium (135-145) mmol/L Potassium (3.3-5.1) mmol/L Chloride (96-108) mmol/L Carbon Dioxide (22-29) mmol/L Anion Gap (12-20) BUN (9-16) mg/dL Creatinine (0.5-1.4) mg/dL Estim Creat Clear Calc Estimated GFR Random Glucose (60-115) mg/dL Osmolality (281-305) mosm/kg Lactic Acid 0.5 (0.5-2.0) mmol/L Calcium (8.4-10.2) mg/dL Magnesium (1.6-2.6) mg/dL Total Bilirubin (0.0-1.0) mg/dL AST (5-37) U/L ALT (0-40) U/L Alkaline Phosphatase (39-117) U/L Troponin I High Sens (<3.5-35.0) ng/L B-Natriuretic Peptide 21 (<100) pg/mL Total Protein (6.5-8.0) g/dL Albumin (3.5-5.0) g/dL Urine Color Urine Appearance Urine pH (5.0-9.0) Ur Specific [place] (1.005-1.025) Urine Protein (Neg-Trace) mg/dL Urine Glucose (UA) (Negative) mg/dL Urine Ketones (Negative) mg/dL Urine Blood (Negative) Urine Nitrite (Negative) Ur Leukocyte Esterase (Negative) Urine RBC (0-2) /HPF Urine WBC (0-5) /HPF Ur Squamous Epith Cells (0-2) /HPF Urine Bacteria (None Seen) Hyaline Casts (0-2) /LPF Urine Osmolality (373-1093) mosm/kg Ur Random Sodium mmol/L Ur Random Chloride mmol/L COVID-19 (LA) Negative (Negative) COVID-19 Clin Com See Note 10/24/22 10/25/22 10/25/22 Range/Units 23:18 01:41 01:41 WBC (4.8-10.8) X10*3/uL RBC (4.60-5.80) X10*6/uL Hgb (14.0-18.0) g/dl Hct (42.0-52.0) % MCV (80.0-98.0) fL MCH (27.0-33.0) pg MCHC (31.0-36.0) g/dl RDW (11.0-16.0) % Plt Count (160-400) X10*3/uL MPV (9.4-12.4) fL Absolute Nucleated RBC (0.0-0.012) X10*3/uL Nucleated RBC % (auto) (0.0-0.2) /100WBC PT (10.0-13.1) SEC INR (0.9-1.1) APTT (26.0-36.4) SEC VBG pH 7.39 (7.32-7.43) VBG pCO2 42 mmHg VBG pO2 38 mmHg VBG HCO3 26 (22-26) mmol/L VBG O2 Saturation 55.0 % VBG Base Excess 1.0 mmol/L Sodium (135-145) mmol/L Potassium (3.3-5.1) mmol/L Chloride (96-108) mmol/L Carbon Dioxide (22-29) mmol/L Anion Gap (12-20) BUN (9-16) mg/dL Creatinine (0.5-1.4) mg/dL Estim Creat Clear Calc Estimated GFR Random Glucose (60-115) mg/dL Osmolality (281-305) mosm/kg Lactic Acid (0.5-2.0) mmol/L Calcium (8.4-10.2) mg/dL Magnesium (1.6-2.6) mg/dL Total Bilirubin (0.0-1.0) mg/dL AST (5-37) U/L ALT (0-40) U/L Alkaline Phosphatase (39-117) U/L Troponin I High Sens (<3.5-35.0) ng/L B-Natriuretic Peptide (<100) pg/mL Total Protein (6.5-8.0) g/dL Albumin (3.5-5.0) g/dL Urine Color Yellow Urine Appearance Clear Urine pH 7.0 (5.0-9.0) Ur Specific [place] <= 1.005 (1.005-1.025) Urine Protein Negative (Neg-Trace) mg/dL Urine Glucose (UA) Negative (Negative) mg/dL Urine Ketones Negative (Negative) mg/dL Urine Blood Small (1+) H (Negative) Urine Nitrite Negative (Negative) Ur Leukocyte Esterase Negative (Negative) Urine RBC 0-2 (0-2) /HPF Urine WBC 0-5 (0-5) /HPF Ur Squamous Epith Cells 0-2 (0-2) /HPF Urine Bacteria None Seen (None Seen) Hyaline Casts 0-2 (0-2) /LPF Urine Osmolality 201 L (373-1093) mosm/kg Ur Random Sodium mmol/L Ur Random Chloride mmol/L COVID-19 (LA) (Negative) COVID-19 Clin Com 10/25/22 Range/Units 01:41 WBC (4.8-10.8) X10*3/uL RBC (4.60-5.80) X10*6/uL Hgb (14.0-18.0) g/dl Hct (42.0-52.0) % MCV (80.0-98.0) fL MCH (27.0-33.0) pg MCHC (31.0-36.0) g/dl RDW (11.0-16.0) % Plt Count (160-400) X10*3/uL MPV (9.4-12.4) fL Absolute Nucleated RBC (0.0-0.012) X10*3/uL Nucleated RBC % (auto) (0.0-0.2) /100WBC PT (10.0-13.1) SEC INR (0.9-1.1) APTT (26.0-36.4) SEC VBG pH (7.32-7.43) VBG pCO2 mmHg VBG pO2 mmHg VBG HCO3 (22-26) mmol/L VBG O2 Saturation % VBG Base Excess mmol/L Sodium (135-145) mmol/L Potassium (3.3-5.1) mmol/L Chloride (96-108) mmol/L Carbon Dioxide (22-29) mmol/L Anion Gap (12-20) BUN (9-16) mg/dL Creatinine (0.5-1.4) mg/dL Estim Creat Clear Calc Estimated GFR Random Glucose (60-115) mg/dL Osmolality (281-305) mosm/kg Lactic Acid (0.5-2.0) mmol/L Calcium (8.4-10.2) mg/dL Magnesium (1.6-2.6) mg/dL Total Bilirubin (0.0-1.0) mg/dL AST (5-37) U/L ALT (0-40) U/L Alkaline Phosphatase (39-117) U/L Troponin I High Sens (<3.5-35.0) ng/L B-Natriuretic Peptide (<100) pg/mL Total Protein (6.5-8.0) g/dL Albumin (3.5-5.0) g/dL Urine Color Urine Appearance Urine pH (5.0-9.0) Ur Specific [place] (1.005-1.025) Urine Protein (Neg-Trace) mg/dL Urine Glucose (UA) (Negative) mg/dL Urine Ketones (Negative) mg/dL Urine Blood (Negative) Urine Nitrite (Negative) Ur Leukocyte Esterase (Negative) Urine RBC (0-2) /HPF Urine WBC (0-5) /HPF Ur Squamous Epith Cells (0-2) /HPF Urine Bacteria (None Seen) Hyaline Casts (0-2) /LPF Urine Osmolality (373-1093) mosm/kg Ur Random Sodium 46.0 mmol/L Ur Random Chloride 38.0 mmol/L COVID-19 (LA) (Negative) COVID-19 Clin Com Independent Interpretation I performed an independent interpretation of an: EKG Interpretation: Normal sinus rhythm heart rate 75 beats per minute normal interval normal axis no acute ST changes no acute ischemia impression normal EKG Discharge Plan Discharge Clinical Impression: Chronic bronchitis, Chest pain, Chronic hyponatremia, SIADH (syndrome of inappropriate ADH production), Atypical pneumonia Patient Disposition: Admitted As Inpatient
[2022-10-24 23:13] VITALS: PULSE 76; RESP 18; O2SAT 98
[2022-10-24 23:26] LABS: INTERNATIONAL NORM RATIO 0.9 (0.9-1.1); Prothrombin Time 10.8 SEC (10.0-13.1)
[2022-10-24 23:26] LABS: VBG HCO3 26 mmol/L (22-26); VBG pCO2 42 mmHg; VBG pH 7.39 (7.32-7.43); VBG pO2 38 mmHg
[2022-10-24 23:27] LABS: Venous Blood Gas Refer to POC result
[2022-10-24 23:28] LABS: Partial Thromboplastin Time 32.1 SEC (26.0-36.4)
[2022-10-24 23:32] LABS: Lactic Acid 0.5 mmol/L (0.5-2.0)
[2022-10-24 23:35] LABS: COVID-19 Test Negative (Negative); IDNOW Serial# 6674DD1D
[2022-10-24 23:36] LABS: Magnesium 1.7 mg/dL (1.6-2.6)
[2022-10-24 23:48] VITALS: BP 136/77; PULSE 71; RESP 15; TEMP 36.4; O2SAT 96
[2022-10-24 23:49] LABS: B Type Natriuretic Peptide 21 pg/mL (<100)
[2022-10-25] VITALS (9 sets, daily range): BP systolic 117–158; BP diastolic 53–87; PULSE 69–100; RESP 12–19; TEMP 36.3–36.6; O2SAT 94–99
[2022-10-25 00:23] LABS: Osmolality, Serum 274 mosm/kg (281-305)
[2022-10-25] MEDS: cefTRIAXone sodium 1 GM in 0.9 % Sodium Chloride 50 ML IV ×2 (01:03→22:40)
[2022-10-25 01:48] LABS: Appearance Urine Clear; Color Urine Yellow; Glucose Urine UA Negative (Negative); Leukocyte Esterase Urine Negative (Negative); Nitrite Urine Negative (Negative); Specific Gravity - Urine <= 1.005 (1.005-1.025); UMIC TRIGGER UACC YES; Urine Blood Small (1+) (Negative); Urine Ketones Negative (Negative); Urine Protein Negative (Neg-Trace)
[2022-10-25 01:59] LABS: Bacteria Urine None Seen (None Seen); Hyaline Casts Urine 0-2 /LPF (0-2); RBC Urine 0-2 /HPF (0-2); Squamous Epithelial Cell Urine 0-2 /HPF (0-2); WBC Urine 0-5 /HPF (0-5)
[2022-10-25 02:04] LABS: Osmolality Urine 201 mosm/kg (373-1093)
[2022-10-25] MEDS: guaiFEN/Codeine SF 200/20/10ML 10 ML LIQUID PO (04:41)
[2022-10-25] MEDS: Azithromycin 500 MG TABLET PO (05:37)
[2022-10-25] MEDS: Enoxaparin Sodium 40 MG/0.4 ML SYRINGE SUBCUT (05:37)
--- NOTE | 2022-10-25 06:25 | PM.IMHP ---
History of Present Illness Date of Service: 10/25/22 Chief Complaint: chest pain 67-year-old male with past medical history of COPD, HTN, HLD, multiple fall merry nodules, schizophrenia, type 2 diabetes, who [facility] the hospital from [facility] with complaints of chest pain and left arm pain. Patient is currently very somnolent, wakes up to verbal command but falls back asleep. I am unable to get much history from him, history is obtained from ED physician as well as EMR. It appears the patient lives in a prison, comes into the hospital with complaints of chest pain, left arm pain that started yesterday, had described the pain as constant, 9/10, radiating to the left arm. Unable to complete review of system due to patient's mental status On arrival to the ED patient hemodynamically stable no significant abnormal vitals Labs are significant for WBC count of 9.8, hemoglobin of 11, hematocrit a 1.9, sodium of 125, and appears to be chronically low Serum osmolality of 274, urine osmolality of 201, urine sodium of 46 Chest x-ray shows bilateral opacities consistent with his lactase/infiltrate Troponin negative x1, EKG shows normal sinus rhythm with no significant abnormal ST T wave changes Review of Systems Review of Systems: Yes Unobtainable due to mental condition and Unobtainable due to mental status PMF Medical History Centrilobular emphysema COPD (chronic obstructive pulmonary disease) Cough Essential hypertension Hyperlipidemia LDL goal <70 Multiple pulmonary nodules Schizophrenia Smoker Type 2 diabetes mellitus with diabetic polyneuropathy Family History Father Prostate cancer Diabetes Mother Diabetes Hypertension CVD (cardiovascular disease) Social History Housing: Assisted Living Facility Alcohol intake: current Alcohol intake frequency: does not drink Patient Tobacco Use Status: Current everyday Tobacco user Cigarette Packs Per Day: 3.5 Cigarettes Per Day: 70 Smoked in Last 30 Days: Yes Use of substances other than those prescribed or required for medical reasons: No Advance Directives: Yes Advance Directives Information Provided: No Advance Directives on File: No Advance Directives Date on File: 05/04/20 Nutrition Risks: No Nutritional Risk Current occupational status: disabled Meds Allergies Allergy/AdvReac Type Severity Reaction Status Date / Time No Known Allergies Allergy Mild NOT Verified 04/03/22 12:19 APPLICABLE Active Medications: Current Medications Acetaminophen (Acetaminophen 325 Mg Tablet) 650 mg PO Q6H PRN PRN Reason: Pain, Mild (Pain Scale 1-3) Azithromycin (Azithromycin 500 Mg Tablet) 500 mg PO Q24H [facility] Last Admin: 10/25/22 05:37 Dose: 500 mg Docusate Sodium (Docusate Sodium 100 Mg Capsule) 100 mg PO DAILY PRN PRN Reason: Constipation Enoxaparin Sodium (Enoxaparin Sodium 40 Mg/0.4 Ml Syringe) 40 mg SUBCUT Q24H [facility] Last Admin: 10/25/22 05:37 Dose: 40 mg Ceftriaxone Sodium 1 gm/ (Sodium Chloride) 50 mls @ 100 mls/hr IV Q24H [facility] Ondansetron HCl (Ondansetron Hcl 4 Mg/2 Ml Vial) 4 mg IVPUSH Q8H PRN PRN Reason: Nausea and Vomiting Sodium Chloride (0.9 % Sodium Chloride Flush 3 Ml Syringe) 3 ml IVFLUSH QSHIFT [facility] Home Medications Medication Instructions Recorded Confirmed Last Taken Type benztropine 2 mg tablet 2 mg PO BID 11/22/20 08/18/22 08/18/22 13:00 History propranolol 20 mg tablet 10 mg PO DAILY 02/27/21 08/18/22 08/18/22 13:00 History divalproex 500 mg tablet,extended 1,500 mg PO BEDTIME 07/16/21 08/18/22 08/17/22 History release 24 hr olanzapine 10 mg tablet 10 mg PO BID 07/16/21 08/18/22 08/18/22 13:00 History fluphenazine HCl 5 mg tablet 5 mg PO BID 11/26/21 08/18/22 08/18/22 13:00 History gabapentin 300 mg capsule 300 mg PO TID 11/26/21 08/18/22 08/18/22 13:00 History vitamin E mixed 1,000 unit capsule 1,000 unit PO DAILY 11/26/21 08/18/22 08/18/22 13:00 History omeprazole 20 mg capsule,delayed 20 mg PO BID 08/18/22 08/18/22 08/18/22 13:00 History release propranolol 20 mg tablet 1 tab PO BEDTIME 08/18/22 08/18/22 08/17/22 History sennosides 8.6 mg tablet (senna) 17.2 mg PO DAILY PRN Constipation 08/18/22 08/18/22 Unknown History Physical Exam Vital Signs and Narrative: Vital Signs: Last Vital Signs Temp 97.7 F 10/25/22 06:12 Pulse 76 10/25/22 06:12 Resp 13 10/25/22 06:12 BP 136/73 10/25/22 06:12 Pulse Ox 94 10/25/22 06:12 O2 Del Method Room Air 10/25/22 06:12 BMI result Body Mass Index 29.8 Const: Other: Patient is sleeping, arousable to verbal stimuli, falls back asleep General: no acute distress Eyes: General: appearance normal, both eyes and all related structures Resp: Effort & Inspection: normal respiratory effort Auscultation: clear to auscultation bilaterally Cardio: Rate: regular rate Rhythm: regular rhythm GI: Palpation (GI): Soft to palpation Auscultation: normal bowel sounds Skin: General skin exam: no rashes or lesions noted Extrem: General: Yes normal to inspection and Yes no pedal edema Results Labs 10/24/22 22:08 10/24/22 22:08 Labs: Laboratory Results - last 24 hr 10/24/22 10/24/22 10/24/22 22:08 22:08 22:08 MCV 84.2 MCH 29.0 MCHC 34.5 RDW 13.0 Plt Count 209 MPV 9.2 L Absolute Nucleated RBC 0.000 Nucleated RBC % (auto) 0.0 PT INR APTT VBG pH VBG pCO2 VBG pO2 VBG HCO3 VBG O2 Saturation VBG Base Excess Anion Gap 13 Estim Creat Clear Calc 65.6 Estimated GFR > 60 Random Glucose 161 H Osmolality Lactic Acid Calcium 9.0 Magnesium Total Bilirubin 0.2 AST 17 ALT 10 Alkaline Phosphatase 47 Troponin I High Sens 4.4 B-Natriuretic Peptide Total Protein 7.0 Albumin 3.7 Urine Color Urine Appearance Urine pH Ur Specific [place] Urine Protein Urine Glucose (UA) Urine Ketones Urine Blood Urine Nitrite Ur Leukocyte Esterase Urine RBC Urine WBC Ur Squamous Epith Cells Urine Bacteria Hyaline Casts Urine Osmolality Ur Random Sodium Ur Random Chloride COVID-19 ([place]) COVID-19 Clin Com 10/24/22 10/24/22 10/24/22 22:08 23:10 23:10 MCV MCH MCHC RDW Plt Count MPV Absolute Nucleated RBC Nucleated RBC % (auto) PT 10.8 INR 0.9 APTT 32.1 VBG pH VBG pCO2 VBG pO2 VBG HCO3 VBG O2 Saturation VBG Base Excess Anion Gap Estim Creat Clear Calc Estimated GFR Random Glucose Osmolality 274 L Lactic Acid Calcium Magnesium 1.7 Total Bilirubin AST ALT Alkaline Phosphatase Troponin I High Sens B-Natriuretic Peptide Total Protein Albumin Urine Color Urine Appearance Urine pH Ur Specific [place] Urine Protein Urine Glucose (UA) Urine Ketones Urine Blood Urine Nitrite Ur Leukocyte Esterase Urine RBC Urine WBC Ur Squamous Epith Cells Urine Bacteria Hyaline Casts Urine Osmolality Ur Random Sodium Ur Random Chloride COVID-19 ([place]) COVID-19 Entrecard Com 10/24/22 10/24/22 10/24/22 23:10 23:10 23:10 MCV MCH MCHC RDW Plt Count MPV Absolute Nucleated RBC Nucleated RBC % (auto) PT INR APTT VBG pH VBG pCO2 VBG pO2 VBG HCO3 VBG O2 Saturation VBG Base Excess Anion Gap Estim Creat Clear Calc Estimated GFR Random Glucose Osmolality Lactic Acid 0.5 Calcium Magnesium Total Bilirubin AST ALT Alkaline Phosphatase Troponin I High Sens B-Natriuretic Peptide 21 Total Protein Albumin Urine Color Urine Appearance Urine pH Ur Specific [place] Urine Protein Urine Glucose (UA) Urine Ketones Urine Blood Urine Nitrite Ur Leukocyte Esterase Urine RBC Urine WBC Ur Squamous Epith Cells Urine Bacteria Hyaline Casts Urine Osmolality Ur Random Sodium Ur Random Chloride COVID-19 ([place]) Negative COVID-19 Clin Com See Note 10/24/22 10/25/22 10/25/22 23:18 01:41 01:41 MCV MCH MCHC RDW Plt Count MPV Absolute Nucleated RBC Nucleated RBC % (auto) PT INR APTT VBG pH 7.39 VBG pCO2 42 VBG pO2 38 VBG HCO3 26 VBG O2 Saturation 55.0 VBG Base Excess 1.0 Anion Gap Estim Creat Clear Calc Estimated GFR Random Glucose Osmolality Lactic Acid Calcium Magnesium Total Bilirubin AST ALT Alkaline Phosphatase Troponin I High Sens B-Natriuretic Peptide Total Protein Albumin Urine Color Yellow Urine Appearance Clear Urine pH 7.0 Ur Specific [place] <= 1.005 Urine Protein Negative Urine Glucose (UA) Negative Urine Ketones Negative Urine Blood Small (1+) H Urine Nitrite Negative Ur Leukocyte Esterase Negative Urine RBC 0-2 Urine WBC 0-5 Ur Squamous Epith Cells 0-2 Urine Bacteria None Seen Hyaline Casts 0-2 Urine Osmolality 201 L Ur Random Sodium Ur Random Chloride COVID-19 ([place]) COVID-19 Clin Com 10/25/22 01:41 MCV MCH MCHC RDW Plt Count MPV Absolute Nucleated RBC Nucleated RBC % (auto) PT INR APTT VBG pH VBG pCO2 VBG pO2 VBG HCO3 VBG O2 Saturation VBG Base Excess Anion Gap Estim Creat Clear Calc Estimated GFR Random Glucose Osmolality Lactic Acid Calcium Magnesium Total Bilirubin AST ALT Alkaline Phosphatase Troponin I High Sens B-Natriuretic Peptide Total Protein Albumin Urine Color Urine Appearance Urine pH Ur Specific [place] Urine Protein Urine Glucose (UA) Urine Ketones Urine Blood Urine Nitrite Ur Leukocyte Esterase Urine RBC Urine WBC Ur Squamous Epith Cells Urine Bacteria Hyaline Casts Urine Osmolality Ur Random Sodium 46.0 Ur Random Chloride 38.0 COVID-19 ([place]) COVID-19 Clin Com Imaging Radiologist's Impressions: Impressions Chest X-Ray 10/24/22 22:03 IMPRESSION: Bilateral opacities consistent with atelectasis/small areas of infiltrate and probable process in the right midlung/right hilar region. Follow-up recommended after treatment to assess for resolution and establish baseline. 4-6 weeks. There is no failure or effusion. The heart size is within normal limits Assessment and Plan (1) SIADH (syndrome of inappropriate ADH production): Status: Acute (2) Hyponatremia: Status: Acute (3) Community acquired pneumonia: Status: Acute (4) Chest pain: Status: Acute Plan This is a 67-year-old male with past medical history of diabetes, hypertension, schizophrenia presents to the hospital with complaints of chest pain and left arm pain found to have hyponatremia as well as pneumonia # chest pain - likely noncardiac - troponin negative, EKG shows no changes suggestive of ACS - supportive measures # hyponatremia - appears to be chronic - likely secondary to SIADH given the low serum osmolality as well as high urine sodium - restrict fluid intake - nephrology consulted - BMP q.6 hours # SIADH - likely secondary to his mood stabilizers - nephrology consulted - fluid restriction - follow BMP # community-acquired pneumonia - is evidence of infiltrate on chest imaging - will treat with IV antibiotics - follow cultures # diabetes - hold oral anti hyperglycemics - continue home - insulin diabetic diet - will add low-dose sliding scale insulin # hypertension - stable - continue antihypertensives # somnolent - will obtain head CT - monitor mentation # history of COPD - does not appear to be in exacerbation, will continue home inhalers DVT prophylaxis: Lovenox Given patient's need for further management of his hyponatremia patient required minimum 2 night inpatient hospital stay for further management and monitoring Time Spent With Patient Time: Total time managing care of this patient today ____ minutes. Quality Stroke Does the patient have a stroke diagnosis?: No VTE Prior VTE?: No VTE Risk Level:: Medical - moderate - high VTE Device Contraindication: Treatment Not Indicated VTE Drug Contraindication: N/A - Med Ordered
[2022-10-25 06:50] LABS: MANUAL DIFF FLAG NO
--- NOTE | 2022-10-25 07:00 | CA_ITS ---
Transthoracic Echocardiogram Patient (Last, First, Middle): Armand Bai L Gender: Male Date of : 1955 Age: 67 Procedure Date: 10/25/2022 Procedure Type: Transthoracic Echocardiogram Location: S3E Height: 167. cm Weight: 83.92 kg BSA: 1.93 m2 Heart Rate: 92 bpm BP: 117 / 53 mmHg Motor Vehicle Representative: ANANYA Waters MD: Kristen Kruger MD Web Applications Administrator: Beni Del Cid MD Symptoms: chest pain Study Quality: Adequate ECG Rhythm: Sinus Conclusions: - 1. Normal LV systolic function with grade 1 diastolic dysfunction 2. Normal cardiac valvular Dopplers 3. No gross pericardial effusion Findings Left Ventricle Normal left ventricular size, thickness, and systolic function. The visually estimated ejection fraction is between 60-65%. Spectral Doppler is indicative of an impaired relaxation filling pattern. E/E prime ratio is <8, consistent with normal filling pressures. Evidence suggests grade I (mild) diastolic dysfunction. Right Ventricle Normal right ventricular cavity size and systolic function. Atria Both atria are normal in size. There is no evidence of interatrial shunt. Aortic Valve Normal aortic valve structure and function. There is no aortic valve stenosis. There is no aortic valve regurgitation. Mitral Valve Normal mitral valve structure and function. There is trace mitral valve regurgitation. There is no mitral valve stenosis. Pulmonic Valve The pulmonic valve is likely normal. Tricuspid Valve Normal tricuspid valve structure. Tricuspid regurgitation envelope is inadequate for calculation of right ventricular systolic pressure. Normal right atrial pressure. Great Vessels All visible segments of the aorta are normal in size. The pulmonary artery was not well visualized. Venous The inferior vena cava is normal in size and collapses greater than 50% with inspiration. Pericardium/Pleural There is no evidence of pericardial effusion. Measurements 2D Linear Measurements IVSd: 1.30 0.6-0.9/0.6-1.0 cm LVIDd: 4.59 3.9-5.3/4.2-5.9 cm LVIDd Index: 2.38 2.4-3.2/2.2-3.1 cm/m2 LVIDs: 2.86 2.0-3.6 cm LVPWd: 1.04 0.7-1.1 cm LA Diam: 3.30 2.7-3.8/3.0-4.0 cm LAIDs Index: 1.71 1.5-2.3 cm/m2 LV Mass: 245.55 67-162/88-224 g LV Mass Index: 127.23 43-95/49-115 g/m2 LVOT Diam: 2.20 3.0+(-)1.3 cm 2D Systolic Function EF 4C: 63.20 >55% EF 2C: 57.70 >55% EF BiP: 61.20 >55% Mitral Valve MV Pk E: 0.48 MV PK A: 1.05 MV Decel Time: 317.00 E/A: 0.50 E'Lateral: 8.16 E'Medial: 6.57 E/E' Med: 7.40 E/E' Lat: 5.90 PHT: 93.00 MVA PHT: 2.37 Decel [place]: 1.53 Aortic Valve AoV Pk Ed: 1.24 AoV Mn Ed: 0.83 AoV VTI: 0.22 AoV Pk Grad: 6.00 Aov Mn Grad: 3.00 MARIAH Cont.VTI: 3.04 LVOT LVOT Pk Ed: 0.89 LVOT Mn Ed: 0.63 LVOT VTI: 0.17 LVOT Pk Grad: 3.00 LVOT Mn Grad: 2.00 LVOT Diam: 2.20 LVOT Area: 3.80 Diastolic Function MV Pk E: 0.48 MV Pk A: 1.05 E/A: 0.50 E'Medial: 6.57 E/E' Med: 7.40 E' Laterial: 8.16 E/E' Lat: 5.90 Right Ventricle TAPSE (mm): 23.50 TVS' Ed: 13.30 Tricuspid Valve RA Press: 3.00 Great Vessels Aorta Sinus of Valsalva: 3.30 2.0-3.5 cm Ao Asc: 3.10 2.1-3.4 cm Pulmonary Valve PV Pk Ed: 1.18 Peak PV Grad: 6.00 Updated in Other Vendor System with Status of Final Beni Del Cid MD electronically signed on 10/26/2022 11:47:31 AM with status of Final
[2022-10-25 07:08] LABS: Basophils Absolute Auto 0.1 X10*3/uL (0.0-0.2); Basophils Percent Auto 0.7 % (0-2); Eosinophils Absolute Auto 0.8 X10*3/uL (0.0-0.4); Eosinophils Percent Auto 8.6 % (0-4); Hematocrit 33.5 % (42.0-52.0); Hemoglobin 11.5 g/dl (14.0-18.0); Imm Gran Abs Auto 0.06 X10*3/uL (0.00-0.03); Imm Gran Pct Auto 0.7 % (0.0-0.4); Lymphocytes Absolute Auto 1.7 X10*3/uL (1.2-4.9); Lymphocytes Percent Auto 19.4 % (20-40); Mean Corpuscular HGB Conc 34.3 g/dl (31.0-36.0); Mean Corpuscular Hemoglobin 29.1 pg (27.0-33.0); Mean Corpuscular Volume 84.8 fL (80.0-98.0); Mean Platelet Volume 9.5 fL (9.4-12.4); Monocytes Absolute Auto 1.2 X10*3/uL (0.1-1.2); Monocytes Percent Auto 13.7 % (2-11); Neutrophils Absolute Auto 5.1 x10*3/uL (2.0-8.3); Neutrophils Percent Auto 56.9 % (45-73); Platelet Count 216 X10*3/uL (160-400); Red Blood Count 3.95 X10*6/uL (4.60-5.80); Red Cell Distribution Width 13.1 % (11.0-16.0); White Blood Count 8.9 X10*3/uL (4.8-10.8)
[2022-10-25 07:14] LABS: Glucose, Whole Blood 197 mg/dL (60-115)
[2022-10-25 07:23] LABS: Anion Gap 13 (12-20); Blood Urea Nitrogen 13 mg/dL (9-16); Carbon Dioxide 25 mmol/L (22-29); Chloride 92 mmol/L (96-108); Creatinine Clr Calc Pharmacy 71.4; Estimated Glomerular Filt Rate > 60; Glucose Random 196 mg/dL (60-115); Potassium 4.1 mmol/L (3.3-5.1); Sodium 126 mmol/L (135-145)
[2022-10-25 07:23] LABS: Troponin-I High Sensitivity 4.9 ng/L (<3.5-35.0)
[2022-10-25] MEDS: Insulin Lispro 100 UNIT/ML 3 ML VIAL SUBCUT ×3 (07:35→20:35)
[2022-10-25] MEDS: 0.9 % Sodium Chloride Flush 3 ML SYRINGE IVFLUSH ×3 (07:35→20:37)
--- NOTE | 2022-10-25 07:52 | PHA.MEDREC ---
Pharmacy Consult ? Medication Reconciliation Pharmacy has completed the medication reconciliation. Utilized patient claim history
[2022-10-25 09:29] LABS: Sodium 128 mmol/L (135-145)
[2022-10-25] MEDS: hydroCHLOROthiazide 12.5 MG TABLET PO (09:33)
[2022-10-25] MEDS: Aspirin Enteric Coated 81 MG TABLET.DR PO (09:33)
[2022-10-25] MEDS: Atorvastatin Calcium 10 MG TABLET PO (09:33)
[2022-10-25] MEDS: Gabapentin 300 MG CAPSULE PO ×3 (09:33→20:36)
[2022-10-25] MEDS: fluPHENAZine HCl 5 MG TABLET PO ×2 (09:33→20:36)
[2022-10-25] MEDS: Benztropine Mesylate 1 MG TABLET 2 MG PO ×2 (09:33→20:36)
[2022-10-25] MEDS: predniSONE 20 MG TABLET PO (09:33)
[2022-10-25] MEDS: Insulin Glargine,Hum.rec.anlog 100 UNIT/ML 10 ML VIAL 7 UNIT SUBCUT (09:33)
[2022-10-25] MEDS: OLANZapine 10 MG TABLET PO ×2 (09:36→20:36)
[2022-10-25] MEDS: amLODIPine Besylate 10 MG TABLET PO (09:42)
[2022-10-25] MEDS: lisinopriL 10 MG TABLET PO (09:42)
[2022-10-25] MEDS: Acetaminophen 325 MG TABLET 650 MG PO ×3 (09:42→22:43)
--- NOTE | 2022-10-25 12:04 | MHC.CLN ---
NUTRITION ADDED DIABETIC 1800 KCALS TO DIET ORDER. CONTINUES 1500 ML FLUID RESTRICTION.
--- NOTE | 2022-10-25 12:11 | P.CONNP_ITS ---
History of Present Illness Reason for Consult Consult date: 10/25/22 Chief Complaint Chief complaint: hyponatremia, pneumpnia History of Present Illness Narrative: 67 year old patient with history of chronic hyponatremia admitted with pneumonia found to have low serum sodium. At the time of the consultation he denies fever, chills, chest pain, shortness of breath, nausea vomiting or diarreha. Review of Systems Review of Systems 10 points ROS negative except for pertinent in HPI PMFSH Past Medical History Medical History Centrilobular emphysema COPD (chronic obstructive pulmonary disease) Cough Essential hypertension Hyperlipidemia LDL goal <70 Multiple pulmonary nodules Schizophrenia Smoker Type 2 diabetes mellitus with diabetic polyneuropathy Family History Family History Father Prostate cancer Diabetes Mother Diabetes Hypertension CVD (cardiovascular disease) Social History Social History Housing: Assisted Living Facility Alcohol intake: current Alcohol intake frequency: does not drink Patient Tobacco Use Status: Current everyday Tobacco user Cigarette Packs Per Day: 3.5 Cigarettes Per Day: 70 Advance Directives Date on File: 05/04/20 Current occupational status: disabled Meds Allergies Allergy/AdvReac Type Severity Reaction Status Date / Time No Known Allergies Allergy Mild NOT Verified 04/03/22 12:19 APPLICABLE Active Medications: Current Medications Acetaminophen (Acetaminophen 325 Mg Tablet) 650 mg PO Q6H PRN PRN Reason: Pain, Mild (Pain Scale 1-3) Acetaminophen (Acetaminophen 325 Mg Tablet) 650 mg PO Q6H PRN PRN Reason: pain Last Admin: 10/25/22 09:42 Dose: 650 mg Albuterol Sulfate (Albuterol Sulfate 90 Mcg 8 Gm Inhaler) 2 puff INHALE Q4H PRN PRN Reason: shortness of breath or wheezing Amlodipine Besylate (Amlodipine Besylate 10 Mg Tablet) 10 mg PO DAILY DESHAUN; Prot ocol Last Admin: 10/25/22 09:42 Dose: 10 mg Aspirin (Aspirin Enteric Coated 81 Mg Tablet.) 81 mg PO DAILY [facility] Last Admin: 10/25/22 09:33 Dose: 81 mg Atorvastatin Calcium (Atorvastatin Calcium 10 Mg Tablet) 10 mg PO DAILY [facility] Last Admin: 10/25/22 09:33 Dose: 10 mg Azithromycin (Azithromycin 500 Mg Tablet) 500 mg PO Q24H [facility] Last Admin: 10/25/22 05:37 Dose: 500 mg Benzonatate (Benzonatate 100 Mg Capsule) 100 mg PO BID PRN PRN Reason: cough Benztropine Mesylate (Benztropine Mesylate 1 Mg Tablet) 2 mg PO BID [facility] Last Admin: 10/25/22 09:33 Dose: 2 mg Divalproex Sodium (Divalproex Sodium Er 500 Mg Tab.Er.24h) 1,500 mg PO BEDTIME [facility] Docusate Sodium (Docusate Sodium 100 Mg Capsule) 100 mg PO DAILY PRN PRN Reason: Constipation Docusate Sodium (Docusate Sodium 100 Mg Capsule) 100 mg PO DAILY PRN PRN Reason: constipation Enoxaparin Sodium (Enoxaparin Sodium 40 Mg/0.4 Ml Syringe) 40 mg SUBCUT Q24H [facility] Last Admin: 10/25/22 05:37 Dose: 40 mg Fluphenazine HCl (Fluphenazine Hcl 5 Mg Tablet) 5 mg PO BID [facility] Last Admin: 10/25/22 09:33 Dose: 5 mg Gabapentin (Gabapentin 300 Mg Capsule) 300 mg PO TID [facility] Last Admin: 10/25/22 09:33 Dose: 300 mg Glucose (Glucose Gel 15 Gm Gel..Gram.) 15 gm PO Q15M PRN; Protocol PRN Reason: per Hypoglycemia Standing Ord. Hydrochlorothiazide (Hydrochlorothiazide 12.5 Mg Tablet) 12.5 mg PO DAILY [facility] Last Admin: 10/25/22 09:33 Dose: 12.5 mg Ceftriaxone Sodium 1 gm/ (Sodium Chloride) 50 mls @ 100 mls/hr IV Q24H [facility] Insulin Glargine (Insulin Glargine,Hum.Rec.Anlog 100 Unit/Ml 10 Ml Vial) 7 unit SUBCUT DAILY [facility] Last Admin: 10/25/22 09:33 Dose: 7 unit Insulin Human Lispro (Insulin Lispro 100 Unit/Ml 3 Ml Vial) 0 unit SUBCUT QIDAC HS [facility]; Protocol Last Admin: 10/25/22 07:35 Dose: 2 unit Lisinopril (Lisinopril 10 Mg Tablet) 10 mg PO DAILY [facility] Last Admin: 10/25/22 09:42 Dose: 10 mg Magnesium Hydroxide (Milk Of Magnesia 30 Ml Oral.Susp) 5 ml PO BEDTIME PRN PRN Reason: for severe constipation only Non-Formulary Medication (Umeclidinium [Incruse Ellipta]) 1 inhalation PO DAILY [facility] Olanzapine (Olanzapine 10 Mg Tablet) 10 mg PO BID [facility] Last Admin: 10/25/22 09:36 Dose: 10 mg Omeprazole (Omeprazole 20 Mg Capsule.Dr) 20 mg PO BID@0630,1630 [facility] Ondansetron HCl (Ondansetron Hcl 4 Mg/2 Ml Vial) 4 mg IVPUSH Q8H PRN PRN Reason: Nausea and Vomiting Pharmacy Consult (Consult Rx Perform Med Rec) 1 each MISCELLANE ONCE PRN PRN Reason: Consult order Prednisone (Prednisone 20 Mg Tablet) 20 mg PO DAILY [facility] Last Admin: 10/25/22 09:33 Dose: 20 mg Propranolol HCl (Propranolol Hcl 20 Mg Tablet) 20 mg PO BEDTIME [facility]; Protocol Sodium Chloride (0.9 % Sodium Chloride Flush 3 Ml Syringe) 3 ml IVFLUSH QSHIFT [facility] Last Admin: 10/25/22 07:35 Dose: 3 ml Home Medications Medication Instructions Recorded Confirmed Last Taken Type benztropine 2 mg tablet 2 mg PO BID 11/22/20 10/25/22 08/18/22 13:00 History divalproex 500 mg tablet,extended 1,500 mg PO BEDTIME 07/16/21 10/25/22 08/17/22 History release 24 hr olanzapine 10 mg tablet 10 mg PO BID 07/16/21 10/25/22 08/18/22 13:00 History fluphenazine HCl 5 mg tablet 5 mg PO BID 11/26/21 10/25/22 08/18/22 13:00 History gabapentin 300 mg capsule 300 mg PO TID 11/26/21 10/25/22 08/18/22 13:00 History omeprazole 20 mg capsule,delayed 20 mg PO BID 08/18/22 10/25/22 08/18/22 13:00 History release propranolol 20 mg tablet 1 tab PO BEDTIME 08/18/22 10/25/22 08/17/22 History Physical Exam Vital Signs: Last Vital Signs Temp 97.4 F 10/25/22 12:05 Pulse 86 10/25/22 12:05 Resp 17 10/25/22 12:05 BP 151/73 H 10/25/22 12:05 Pulse Ox 95 10/25/22 12:05 O2 Del Method Room Air 10/25/22 12:05 BMI result Body Mass Index 29.8 Const General: no acute distress HEENT Head: Yes normocephalic Neck Neck: Yes supple Resp Auscultation: diminished lung sounds Cardio Heart sounds: S1 normal heart sound present and S2 normal heart sound present GI Palpation (GI): Soft to palpation and nontender Extrem General: No edema Results Lab Results 10/25/22 06:13 10/25/22 09:14 Lab results: Chemistry 10/24/22 10/25/22 10/25/22 22:08 06:13 09:14 Sodium 125 L 126 L 128 L Potassium 3.9 4.1 Carbon Dioxide 25 25 BUN 13 13 Creatinine 1.11 1.02 Calcium 9.0 9.0 Hematology 10/24/22 10/25/22 22:08 06:13 WBC 9.8 8.9 Hgb 11.0 L 11.5 L Plt Count 209 216 Urinalysis 10/25/22 01:41 Urine Color Yellow Urine Appearance Clear Urine pH 7.0 Ur Specific [place] <= 1.005 Urine Protein Negative Urine Glucose (UA) Negative Urine Ketones Negative Urine Blood Small (1+) H Urine Nitrite Negative Ur Leukocyte Esterase Negative Urine RBC 0-2 Urine WBC 0-5 Ur Squamous Epith Cells 0-2 Hyaline Casts 0-2 Urine Studies 10/25/22 01:41 Urine Osmolality 201 L Assessment and Plan (1) Hyponatremia: Status: Acute Plan hypotonic euvolemic hyponatremia Uosm (201) < Sosm (274) Jennifer 46 not c/w SIADH c/w excessive free water intake and poor solute excretion h/o chronic hyponatremia he is olanzapine and divalproex which can cause SIADH REC fluid restriction 1500 cc daily no need for sodium chloride tablet or urea goal Sna ~ 128-130 follow electrolytes Time Spent With Patient Time: Total time managing care of this patient today ____ minutes. Procedures Date of Service Date of Service: 10/25/22
[2022-10-25 12:48] LABS: Glucose, Whole Blood 200 mg/dL (60-115)
[2022-10-25 15:06] LABS: Anion Gap 14 (12-20); Blood Urea Nitrogen 16 mg/dL (9-16); Calcium 9.4 mg/dL (8.4-10.2); Carbon Dioxide 25 mmol/L (22-29); Chloride 90 mmol/L (96-108); Creatinine Clr Calc Pharmacy 61.7; Estimated Glomerular Filt Rate > 60; Glucose Random 309 mg/dL (60-115); Potassium 4.4 mmol/L (3.3-5.1); Sodium 125 mmol/L (135-145)
--- NOTE | 2022-10-25 15:32 | P.EN_ITS ---
Event Note Date of Service: 10/25/22 Event Note: Consult to psych for capacity was ordered. However, pt has HCP that has been invoked at [facility]. HCP and invocation of HCP scanned in [facility]. Dr. Kruger informed. Psych consult will be cancelled unless other reason for consult. Time Spent With Patient Time: Total time managing care of this patient today ____ minutes.
--- NOTE | 2022-10-25 15:32 | PM.EVENT ---
Event Note Date of Service: 10/25/22 Event Note: Consult to psych for capacity was ordered. However, pt has HCP that has been invoked at [facility]. HCP and invocation of HCP scanned in [facility]. Dr. Kruger informed. Psych consult will be cancelled unless other reason for consult. Time Spent With Patient Time: Total time managing care of this patient today ____ minutes.
--- NOTE | 2022-10-25 15:55 | HO.PM.IMPN ---
Subjective Subjective Date of Service: 10/26/22 Interval History: chest pain,?pneumonia Review of Systems Has some cough with clear sputum. No fever or chills. Physical Exam Vital Signs: Vital Signs: Last Vital Signs Temp 97.5 F 10/25/22 15:30 Pulse 100 10/25/22 15:30 Resp 16 10/25/22 15:30 BP 158/76 H 10/25/22 15:30 Pulse Ox 95 10/25/22 15:30 O2 Del Method Room Air 10/25/22 15:30 BMI result Body Mass Index 29.8 Appearance: Alert.? Oriented X2.? seems agiatated cvs: rrr, [id number] , no murmur res: clear to auscultation ,no rhonchii or wheezing abd: no rebound or guarding ,nt, bs present. ext pulses present , no cyanosis. neuro: axo3 , nonfocal. Objective Data Active Medications Acetaminophen (Acetaminophen 325 Mg Tablet) 650 mg PO Q6H PRN PRN Reason: Pain, Mild (Pain Scale 1-3) Acetaminophen (Acetaminophen 325 Mg Tablet) 650 mg PO Q6H PRN PRN Reason: pain Last Admin: 10/25/22 09:42 Dose: 650 mg Documented By: CLIFF Albuterol Sulfate (Albuterol Sulfate 90 Mcg 8 Gm Inhaler) 2 puff INHALE Q4H PRN PRN Reason: shortness of breath or wheezing Amlodipine Besylate (Amlodipine Besylate 10 Mg Tablet) 10 mg PO DAILY [facility]; Protocol Last Admin: 10/25/22 09:42 Dose: 10 mg Documented By: CLIFF Aspirin (Aspirin Enteric Coated 81 Mg Tablet.) 81 mg PO DAILY [facility] Last Admin: 10/25/22 09:33 Dose: 81 mg Documented By: CLIFF Atorvastatin Calcium (Atorvastatin Calcium 10 Mg Tablet) 10 mg PO DAILY [facility] Last Admin: 10/25/22 09:33 Dose: 10 mg Documented By: CLIFF Azithromycin (Azithromycin 500 Mg Tablet) 500 mg PO Q24H [facility] Last Admin: 10/25/22 05:37 Dose: 500 mg Documented By: JESUS Benzonatate (Benzonatate 100 Mg Capsule) 100 mg PO BID PRN PRN Reason: cough Benztropine Mesylate (Benztropine Mesylate 1 Mg Tablet) 2 mg PO BID [facility] Last Admin: 10/25/22 09:33 Dose: 2 mg Documented By: CLIFF Divalproex Sodium (Divalproex Sodium Er 500 Mg Tab.Er.24h) 1,500 mg PO BEDTIME [facility] Docusate Sodium (Docusate Sodium 100 Mg Capsule) 100 mg PO DAILY PRN PRN Reason: Constipation Docusate Sodium (Docusate Sodium 100 Mg Capsule) 100 mg PO DAILY PRN PRN Reason: constipation Enoxaparin Sodium (Enoxaparin Sodium 40 Mg/0.4 Ml Syringe) 40 mg SUBCUT Q24H [facility] Last Admin: 10/25/22 05:37 Dose: 40 mg Documented By: JESUS Fluphenazine HCl (Fluphenazine Hcl 5 Mg Tablet) 5 mg PO BID [facility] Last Admin: 10/25/22 09:33 Dose: 5 mg Documented By: CLIFF Gabapentin (Gabapentin 300 Mg Capsule) 300 mg PO TID [facility] Last Admin: 10/25/22 14:20 Dose: 300 mg Documented By: TOMMY Glucose (Glucose Gel 15 Gm Gel..Gram.) 15 gm PO Q15M PRN; Protocol PRN Reason: per Hypoglycemia Standing Ord. Hydrochlorothiazide (Hydrochlorothiazide 12.5 Mg Tablet) 12.5 mg PO DAILY [facility] Last Admin: 10/25/22 09:33 Dose: 12.5 mg Documented By: CLIFF Ceftriaxone Sodium 1 gm/ (Sodium Chloride) 50 mls @ 100 mls/hr IV Q24H [facility] Insulin Glargine (Insulin Glargine,Hum.Rec.Anlog 100 Unit/Ml 10 Ml Vial) 7 unit SUBCUT DAILY [facility] Last Admin: 10/25/22 09:33 Dose: 7 unit Documented By: CLIFF Insulin Human Lispro (Insulin Lispro 100 Unit/Ml 3 Ml Vial) 0 unit SUBCUT QIDACHS [facility]; Protocol Last Admin: 10/25/22 13:43 Dose: Not Given Documented By: TOMMY Non-Admin Reason: No Insulin Coverage Lisinopril (Lisinopril 10 Mg Tablet) 10 mg PO DAILY [facility] Last Admin: 10/25/22 09:42 Dose: 10 mg Documented By: CLIFF Magnesium Hydroxide (Milk Of Magnesia 30 Ml Oral.Susp) 5 ml PO BEDTIME PRN PRN Reason: for severe constipation only Non-Formulary Medication (Umeclidinium [Incruse Ellipta]) 1 inhalation PO DAILY [facility] Olanzapine (Olanzapine 10 Mg Tablet) 10 mg PO BID [facility] Last Admin: 10/25/22 09:36 Dose: 10 mg Documented By: CLIFF Omeprazole (Omeprazole 20 Mg Capsule.Dr) 20 mg PO BID@0630,1630 [facility] Ondansetron HCl (Ondansetron Hcl 4 Mg/2 Ml Vial) 4 mg IVPUSH Q8H PRN PRN Reason: Nausea and Vomiting Pharmacy Consult (Consult Rx Perform Med Rec) 1 each MISCELLANE ONCE PRN PRN Reason: Consult order Prednisone (Prednisone 20 Mg Tablet) 20 mg PO DAILY [facility] Last Admin: 10/25/22 09:33 Dose: 20 mg Documented By: CLIFF Propranolol HCl (Propranolol Hcl 20 Mg Tablet) 20 mg PO BEDTIME [facility]; Protocol Sodium Chloride (0.9 % Sodium Chloride Flush 3 Ml Syringe) 3 ml IVFLUSH QSHIFT [facility] Last Admin: 10/25/22 14:21 Dose: 3 ml Documented By: TOMMY Labs 10/25/22 06:13 10/25/22 14:34 Labs: Laboratory Results - last 24 hr 10/24/22 10/24/22 10/24/22 22:08 22:08 22:08 MCV 84.2 MCH 29.0 MCHC 34.5 RDW 13.0 Plt Count 209 MPV 9.2 L Immature Gran % (Auto) Neut % (Auto) Lymph % (Auto) [place] % (Auto) Eos % (Auto) Baso % (Auto) Lymph # (Auto) [place] # (Auto) Eos # (Auto) Baso # (Auto) Abs Immat Gran (auto) Absolute Neuts (auto) Absolute Nucleated RBC 0.000 Nucleated RBC % (auto) 0.0 PT INR APTT VBG pH VBG pCO2 VBG pO2 VBG HCO3 VBG O2 Saturation VBG Base Excess Anion Gap 13 Estim Creat Clear Calc 65.6 Estimated GFR > 60 POC Glucose Random Glucose 161 H Osmolality Lactic Acid Calcium 9.0 Magnesium Total Bilirubin 0.2 AST 17 ALT 10 Alkaline Phosphatase 47 Troponin I High Sens 4.4 B-Natriuretic Peptide Total Protein 7.0 Albumin 3.7 Urine Color Urine Appearance Urine pH Ur Specific [place] Urine Protein Urine Glucose (UA) Urine Ketones Urine Blood Urine Nitrite Ur Leukocyte Esterase Urine RBC Urine WBC Ur Squamous Epith Cells Urine Bacteria Hyaline Casts Urine Osmolality Ur Random Sodium Ur Random Chloride COVID-19 ([place]) COVID-19 Clin Com 10/24/22 10/24/22 10/24/22 22:08 23:10 23:10 MCV MCH MCHC RDW Plt Count MPV Immature Gran % (Auto) Neut % (Auto) Lymph % (Auto) [place] % (Auto) Eos % (Auto) Baso % (Auto) Lymph # (Auto) [place] # (Auto) Eos # (Auto) Baso # (Auto) Abs Immat Gran (auto) Absolute Neuts (auto) Absolute Nucleated RBC Nucleated RBC % (auto) PT 10.8 INR 0.9 APTT 32.1 VBG pH VBG pCO2 VBG pO2 VBG HCO3 VBG O2 Saturation VBG Base Excess Anion Gap Estim Creat Clear Calc Estimated GFR POC Glucose Random Glucose Osmolality 274 L Lactic Acid Calcium Magnesium 1.7 Total Bilirubin AST ALT Alkaline Phosphatase Troponin I High Sens B-Natriuretic Peptide Total Protein Albumin Urine Color Urine Appearance Urine pH Ur Specific [place] Urine Protein Urine Glucose (UA) Urine Ketones Urine Blood Urine Nitrite Ur Leukocyte Esterase Urine RBC Urine WBC Ur Squamous Epith Cells Urine Bacteria Hyaline Casts Urine Osmolality Ur Random Sodium Ur Random Chloride COVID-19 ([place]) COVID-19 Clin Com 10/24/22 10/24/22 10/24/22 23:10 23:10 23:10 MCV MCH MCHC RDW Plt Count MPV Immature Gran % (Auto) Neut % (Auto) Lymph % (Auto) [place] % (Auto) Eos % (Auto) Baso % (Auto) Lymph # (Auto) [place] # (Auto) Eos # (Auto) Baso # (Auto) Abs Immat Gran (auto) Absolute Neuts (auto) Absolute Nucleated RBC Nucleated RBC % (auto) PT INR APTT VBG pH VBG pCO2 VBG pO2 VBG HCO3 VBG O2 Saturation VBG Base Excess Anion Gap Estim Creat Clear Calc Estimated GFR POC Glucose Random Glucose Osmolality Lactic Acid 0.5 Calcium Magnesium Total Bilirubin AST ALT Alkaline Phosphatase Troponin I High Sens B-Natriuretic Peptide 21 Total Protein Albumin Urine Color Urine Appearance Urine pH Ur Specific [place] Urine Protein Urine Glucose (UA) Urine Ketones Urine Blood Urine Nitrite Ur Leukocyte Esterase Urine RBC Urine WBC Ur Squamous Epith Cells Urine Bacteria Hyaline Casts Urine Osmolality Ur Random Sodium Ur Random Chloride COVID-19 ([place]) Negative COVID-19 Clin Com See Note 10/24/22 10/25/22 10/25/22 23:18 01:41 01:41 MCV MCH MCHC RDW Plt Count MPV Immature Gran % (Auto) Neut % (Auto) Lymph % (Auto) [place] % (Auto) Eos % (Auto) Baso % (Auto) Lymph # (Auto) [place] # (Auto) Eos # (Auto) Baso # (Auto) Abs Immat Gran (auto) Absolute Neuts (auto) Absolute Nucleated RBC Nucleated RBC % (auto) PT INR APTT VBG pH 7.39 VBG pCO2 42 VBG pO2 38 VBG HCO3 26 VBG O2 Saturation 55.0 VBG Base Excess 1.0 Anion Gap Estim Creat Clear Calc Estimated GFR POC Glucose Random Glucose Osmolality Lactic Acid Calcium Magnesium Total Bilirubin AST ALT Alkaline Phosphatase Troponin I High Sens B-Natriuretic Peptide Total Protein Albumin Urine Color Yellow Urine Appearance Clear Urine pH 7.0 Ur Specific [place] <= 1.005 Urine Protein Negative Urine Glucose (UA) Negative Urine Ketones Negative Urine Blood Small (1+) H Urine Nitrite Negative Ur Leukocyte Esterase Negative Urine RBC 0-2 Urine WBC 0-5 Ur Squamous Epith Cells 0-2 Urine Bacteria None Seen Hyaline Casts 0-2 Urine Osmolality 201 L Ur Random Sodium Ur Random Chloride COVID-19 ([place]) COVID-19 Clin Com 10/25/22 10/25/22 10/25/22 01:41 06:13 06:13 MCV 84.8 MCH 29.1 MCHC 34.3 RDW 13.1 Plt Count 216 MPV 9.5 Immature Gran % (Auto) 0.7 H Neut % (Auto) 56.9 Lymph % (Auto) 19.4 L Bollinger % (Auto) 13.7 H Eos % (Auto) 8.6 H Baso % (Auto) 0.7 Lymph # (Auto) 1.7 [place] # (Auto) 1.2 Eos # (Auto) 0.8 H Baso # (Auto) 0.1 Abs Immat Gran (auto) 0.06 H Absolute Neuts (auto) 5.1 Absolute Nucleated RBC 0.000 Nucleated RBC % (auto) 0.0 PT INR APTT VBG pH VBG pCO2 VBG pO2 VBG HCO3 VBG O2 Saturation VBG Base Excess Anion Gap 13 Estim Creat Clear Calc 71.4 Estimated GFR > 60 POC Glucose Random Glucose 196 H Osmolality Lactic Acid Calcium 9.0 Magnesium Total Bilirubin AST ALT Alkaline Phosphatase Troponin I High Sens B-Natriuretic Peptide Total Protein Albumin Urine Color Urine Appearance Urine pH Ur Specific [place] Urine Protein Urine Glucose (UA) Urine Ketones Urine Blood Urine Nitrite Ur Leukocyte Esterase Urine RBC Urine WBC Ur Squamous Epith Cells Urine Bacteria Hyaline Casts Urine Osmolality Ur Random Sodium 46.0 Ur Random Chloride 38.0 COVID-19 ([place]) COVID-19 Clin Com 10/25/22 10/25/22 10/25/22 06:43 07:09 12:44 MCV MCH MCHC RDW Plt Count MPV Immature Gran % (Auto) Neut % (Auto) Lymph % (Auto) [place] % (Auto) Eos % (Auto) Baso % (Auto) Lymph # (Auto) [place] # (Auto) Eos # (Auto) Baso # (Auto) Abs Immat Gran (auto) Absolute Neuts (auto) Absolute Nucleated RBC Nucleated RBC % (auto) PT INR APTT VBG pH VBG pCO2 VBG pO2 VBG HCO3 VBG O2 Saturation VBG Base Excess Anion Gap Estim Creat Clear Calc Estimated GFR POC Glucose 197 H 200 H Random Glucose Osmolality Lactic Acid Calcium Magnesium Total Bilirubin AST ALT Alkaline Phosphatase Troponin I High Sens 4.9 B-Natriuretic Peptide Total Protein Albumin Urine Color Urine Appearance Urine pH Ur Specific [place] Urine Protein Urine Glucose (UA) Urine Ketones Urine Blood Urine Nitrite Ur Leukocyte Esterase Urine RBC Urine WBC Ur Squamous Epith Cells Urine Bacteria Hyaline Casts Urine Osmolality Ur Random Sodium Ur Random Chloride COVID-19 ([place]) COVID-19 Clin Com 10/25/22 14:34 MCV MCH MCHC RDW Plt Count MPV Immature Gran % (Auto) Neut % (Auto) Lymph % (Auto) [place] % (Auto) Eos % (Auto) Baso % (Auto) Lymph # (Auto) [place] # (Auto) Eos # (Auto) Baso # (Auto) Abs Immat Gran (auto) Absolute Neuts (auto) Absolute Nucleated RBC Nucleated RBC % (auto) PT INR APTT VBG pH VBG pCO2 VBG pO2 VBG HCO3 VBG O2 Saturation VBG Base Excess Anion Gap 14 Estim Creat Clear Calc 61.7 Estimated GFR > 60 POC Glucose Random Glucose 309 H Osmolality Lactic Acid Calcium 9.4 Magnesium Total Bilirubin AST ALT Alkaline Phosphatase Troponin I High Sens B-Natriuretic Peptide Total Protein Albumin Urine Color Urine Appearance Urine pH Ur Specific [place] Urine Protein Urine Glucose (UA) Urine Ketones Urine Blood Urine Nitrite Ur Leukocyte Esterase Urine RBC Urine WBC Ur Squamous Epith Cells Urine Bacteria Hyaline Casts Urine Osmolality Ur Random Sodium Ur Random Chloride COVID-19 ([place]) COVID-19 Clin Com Assessment and Plan (1) Hyponatremia: Status: Acute (2) Community acquired pneumonia: Status: Acute Plan 67-year-old male with past medical history of diabetes, hypertension, schizophrenia presents to the hospital with complaints of chest pain and left arm pain found to have hyponatremia as well as pneumonia chest pain-nonspecific denies any new chest pains - troponin negative, EKG shows no changes suggestive of ACS echo added - supportive measures hyponatremia - appears to be chronic - likely secondary to SIADH given the low serum osmolality as well as high urine sodium - restrict fluid intake - nephrology consulted - BMP q.6 hours SIADH hypotonic euvolemic hyponatremia - likely secondary to his mood stabilizers - nephrology consulted-- fluid restriction - follow BMP: na around 128 when adjusted for fs. community-acquired pneumonia - is evidence of infiltrate on chest imaging - will treat with IV antibiotics - follow cultures diabetes - hold oral anti hyperglycemics - continue home - insulin diabetic diet - will add low-dose sliding scale insulin hypertension - stable - continue antihypertensives history of COPD - does not appear to be in exacerbation, will continue home inhalers scizophernia : continue olanzapine ,fluphenazine DVT prophylaxis:? Lovenox inpatient need : hyponatremia, cap Time Spent With Patient Time: Total time managing care of this patient today ____ minutes. Quality Stroke Does the patient have a stroke diagnosis?: No VTE Prior VTE?: No VTE Risk Level:: Medical - moderate - high VTE Device Contraindication: Treatment Not Indicated VTE Drug Contraindication: N/A - Med Ordered
[2022-10-25 16:27] LABS: Glucose, Whole Blood 332 mg/dL (60-115)
[2022-10-25] MEDS: Nicotine 21 MG PATCH.TD24 TRANSDERMA (16:36)
[2022-10-25] MEDS: Omeprazole 20 MG CAPSULE.DR PO (16:38)
[2022-10-25 17:17] LABS: Anion Gap 15 (12-20); Blood Urea Nitrogen 17 mg/dL (9-16); Calcium 8.9 mg/dL (8.4-10.2); Carbon Dioxide 22 mmol/L (22-29); Chloride 92 mmol/L (96-108); Creatinine Clr Calc Pharmacy 58.2; Estimated Glomerular Filt Rate 58; Glucose Random 295 mg/dL (60-115); Potassium 4.7 mmol/L (3.3-5.1); Sodium 124 mmol/L (135-145)
[2022-10-25 20:13] LABS: Anion Gap 11 (12-20); Blood Urea Nitrogen 20 mg/dL (9-16); Calcium 8.9 mg/dL (8.4-10.2); Carbon Dioxide 25 mmol/L (22-29); Chloride 92 mmol/L (96-108); Creatinine Clr Calc Pharmacy 53.1; Estimated Glomerular Filt Rate 52; Glucose Random 311 mg/dL (60-115); Potassium 4.4 mmol/L (3.3-5.1); Sodium 124 mmol/L (135-145)
[2022-10-25 20:31] LABS: Glucose, Whole Blood 291 mg/dL (60-115)
[2022-10-25] MEDS: Benzonatate 100 MG CAPSULE PO (20:36)
[2022-10-25] MEDS: Divalproex Sodium ER 500 MG TAB.ER.24H 1500 MG PO (20:37)
[2022-10-25] MEDS: Propranolol HCL 20 MG TABLET PO (20:37)
--- NOTE | 2022-10-25 23:09 | PM.EVENT ---
Event Note Date of Service: 10/25/22 Event Note: pt remians hyponatremic. Spoke to nephrology. will start urea 15 BID Time Spent With Patient Time: Total time managing care of this patient today ____ minutes.
[2022-10-25] MEDS: Urea 15 GM POWDER PO (23:18)
[2022-10-26 03:21] VITALS: BP 100/58; PULSE 86; RESP 16; TEMP 36.5; O2SAT 97
[2022-10-26] MEDS: Azithromycin 500 MG TABLET PO (05:22)
[2022-10-26] MEDS: Enoxaparin Sodium 40 MG/0.4 ML SYRINGE SUBCUT (05:22)
[2022-10-26] MEDS: Omeprazole 20 MG CAPSULE.DR PO ×2 (05:22→15:52)
[2022-10-26 07:17] VITALS: BP 129/60; PULSE 83; RESP 18; TEMP 36.1; O2SAT 96
[2022-10-26 07:27] LABS: Glucose, Whole Blood 250 mg/dL (60-115)
[2022-10-26] MEDS: amLODIPine Besylate 10 MG TABLET PO (08:03)
[2022-10-26] MEDS: Aspirin Enteric Coated 81 MG TABLET.DR PO (08:03)
[2022-10-26] MEDS: OLANZapine 10 MG TABLET PO ×2 (08:03→20:26)
[2022-10-26] MEDS: fluPHENAZine HCl 5 MG TABLET PO ×2 (08:03→20:25)
[2022-10-26] MEDS: Benztropine Mesylate 1 MG TABLET 2 MG PO ×2 (08:04→20:26)
[2022-10-26] MEDS: predniSONE 20 MG TABLET PO (08:04)
[2022-10-26] MEDS: Nicotine 21 MG PATCH.TD24 TRANSDERMA (08:04)
[2022-10-26] MEDS: Insulin Glargine,Hum.rec.anlog 100 UNIT/ML 10 ML VIAL 10 UNIT SUBCUT (08:04)
[2022-10-26] MEDS: Gabapentin 300 MG CAPSULE PO ×3 (08:04→20:26)
[2022-10-26] MEDS: Atorvastatin Calcium 10 MG TABLET PO (08:04)
[2022-10-26] MEDS: Urea 15 GM POWDER PO ×2 (08:04→20:25)
[2022-10-26] MEDS: Insulin Lispro 100 UNIT/ML 3 ML VIAL SUBCUT ×4 (08:05→20:24)
[2022-10-26] MEDS: 0.9 % Sodium Chloride Flush 3 ML SYRINGE IVFLUSH ×3 (08:10→23:19)
[2022-10-26 08:20] LABS: Anion Gap 15 (12-20); Blood Urea Nitrogen 32 mg/dL (9-16); Calcium 9.3 mg/dL (8.4-10.2); Carbon Dioxide 24 mmol/L (22-29); Chloride 92 mmol/L (96-108); Creatinine Clr Calc Pharmacy 65.6; Estimated Glomerular Filt Rate > 60; Glucose Random 247 mg/dL (60-115); Sodium 127 mmol/L (135-145)
[2022-10-26 11:09] LABS: Glucose, Whole Blood 203 mg/dL (60-115)
--- NOTE | 2022-10-26 13:07 | PM.PNNEP ---
Subjective Subjective Date of Service: 10/26/22 Interval history: seen and examined sitting out of bed no complaints Physical Exam Vital Signs: Vital Signs: Last Vital Signs Temp 97 F 10/26/22 07:17 Pulse 83 10/26/22 07:17 Resp 18 10/26/22 07:17 BP 129/60 10/26/22 07:17 Pulse Ox 96 10/26/22 07:17 O2 Del Method Room Air 10/26/22 07:17 BMI result Body Mass Index 29.8 Const: General: no acute distress HEENT: Head: Yes normocephalic Neck: Neck: Yes supple Resp: Auscultation: diminished lung sounds Cardio: Heart sounds: S1 normal heart sound present and S2 normal heart sound present GI: Palpation (GI): Soft to palpation and nontender Extrem: General: No edema Objective Data Labs 10/25/22 06:13 10/26/22 07:32 Labs: Laboratory Results - last 24 hr 10/25/22 10/25/22 10/25/22 14:34 14:34 16:06 Sodium 125 L Cancelled 124 L Potassium 4.4 4.7 Chloride 90 L 92 L Carbon Dioxide 25 22 Anion Gap 14 15 BUN 16 17 H Creatinine 1.18 1.25 Estim Creat Clear Calc 61.7 58.2 Estimated GFR > 60 58 POC Glucose Random Glucose 309 H 295 H Calcium 9.4 8.9 10/25/22 10/25/22 10/25/22 16:19 19:48 20:23 Sodium 124 L Potassium 4.4 Chloride 92 L Carbon Dioxide 25 Anion Gap 11 L BUN 20 H Creatinine 1.37 Estim Creat Clear Calc 53.1 Estimated GFR 52 POC Glucose 332 H 291 H Random Glucose 311 H Calcium 8.9 10/26/22 10/26/22 10/26/22 07:17 07:32 11:00 Sodium 127 L Potassium 4.0 Chloride 92 L Carbon Dioxide 24 Anion Gap 15 BUN 32 H Creatinine 1.11 Estim Creat Clear Calc 65.6 Estimated GFR > 60 POC Glucose 250 H 203 H Random Glucose 247 H Calcium 9.3 Microbiology Microbiology Results: Microbiology 10/25/22 00:34 Blood - Venous Blood Culture - Preliminary No growth after 24 hours. 10/25/22 00:34 Blood - Venous Blood Culture - Preliminary No growth after 24 hours. Procedures Date of Service Date of Service: 10/26/22 Assessment & Plan Assessment and plan (1) Hyponatremia: Status: Acute Plan Sna down and then back up again on urea hypotonic euvolemic hyponatremia Uosm (201) < Sosm (274) Jennifer 46 not c/w SIADH c/w excessive free water intake and poor solute excretion h/o chronic hyponatremia he is olanzapine and divalproex which can cause SIADH REC fluid restriction 1500 cc daily urea 15 g bid goal Sna ~ 128-130 follow electrolytes Time Spent With Patient Time: Total time managing care of this patient today ____ minutes. Progress Note: Quality Stroke Does the patient have a stroke diagnosis?: No
--- NOTE | 2022-10-26 14:43 | MHC.CM.PN ---
CM ATTEMPTED TO CONTACT PTS HCP, SARAH ALEJOARMINDA [phone], HOWEVER THE NUMBER APPEARS TO BE OUT OF SERVICES CM CALLED THE PTS DETENTION [phone] AND SPOKE TO A STAFF MEMBER WHO PROVIDED THE FOLLOWING INFORMATION: PTS DETENTION IS STAFFED 24/02 AND A NURSE COME EVERY MORNING PT DOES NOT REQUIRE AN ASSISTIVE DEVICE TO AMBULATE SHE DOES NOT KNOW PTS PCP SHE BELIEVES HIS HCP IS INVOKED SHE ASKS THAT CM CALL BACK FRIDAY BEFORE 1400 AND SPEAK TO [facility] WHO WILL BE ABLE TO PROVIDE MORE INFORMATION SHE REPORTS THEY SOMETIMES PROVIDE TRANSPORT FOR PTS BEING DISCHARGED BUT THEY ALSO ALLOW THEM TO WALK SINCE IT IS SO CLOSE. CM WILL VERIFY ABOVE INFO WHEN [facility] RETURNS
[2022-10-26 15:00] VITALS: BP 148/70; PULSE 91; RESP 18; TEMP 35.8; O2SAT 96
--- NOTE | 2022-10-26 16:17 | P.PNIM_ITS ---
Subjective Subjective Date of Service: 10/27/22 Interval History: hyponatremia ,pneumonia Review of Systems denies any sob or chest pain sodium improvin Physical Exam Vital Signs: Vital Signs: Last Vital Signs Temp 96.5 F L 10/26/22 15:00 Pulse 91 10/26/22 15:00 Resp 18 10/26/22 15:00 BP 148/70 H 10/26/22 15:00 Pulse Ox 96 10/26/22 15:00 O2 Del Method Room Air 10/26/22 15:00 BMI result Body Mass Index 29.8 Appearance: Alert.? Oriented X2.? seems agiatated cvs: [id number], [id number] , no murmur res: clear to auscultation ,no rhonchii or wheezing abd: no rebound or guarding ,nt, bs present. ext pulses present , no cyanosis. neuro: axo3 , nonfocal. Objective Data Active Medications Acetaminophen (Acetaminophen 325 Mg Tablet) 650 mg PO Q6H PRN PRN Reason: Pain, Mild (Pain Scale 1-3) Last Admin: 10/25/22 22:43 Dose: 650 mg Documented By: ANDREA Albuterol Sulfate (Albuterol Sulfate 90 Mcg 8 Gm Inhaler) 2 puff INHALE Q4H PRN PRN Reason: shortness of breath or wheezing Amlodipine Besylate (Amlodipine Besylate 10 Mg Tablet) 10 mg PO DAILY [facility]; Protocol Last Admin: 10/26/22 08:03 Dose: 10 mg Documented By: FELIX Aspirin (Aspirin Enteric Coated 81 Mg Tablet.) 81 mg PO DAILY [facility] Last Admin: 10/26/22 08:03 Dose: 81 mg Documented By: FELIX Atorvastatin Calcium (Atorvastatin Calcium 10 Mg Tablet) 10 mg PO DAILY [facility] Last Admin: 10/26/22 08:04 Dose: 10 mg Documented By: FELIX Azithromycin (Azithromycin 500 Mg Tablet) 500 mg PO Q24H [facility] Last Admin: 10/26/22 05:22 Dose: 500 mg Documented By: ANDREA Benzonatate (Benzonatate 100 Mg Capsule) 100 mg PO BID PRN PRN Reason: cough Last Admin: 10/25/22 20:36 Dose: 100 mg Documented By: ANDREA Benztropine Mesylate (Benztropine Mesylate 1 Mg Tablet) 2 mg PO BID [facility] Last Admin: 10/26/22 08:04 Dose: 2 mg Documented By: FELIX Albuterol Sulfate 2.5 mg/ (Ipratropium [place] 0.5 mg) 0 mg INHALE RQ4H WHILE AWAKE PRN PRN Reason: SOB, whhezing Divalproex Sodium (Divalproex Sodium Er 500 Mg Tab.Er.24h) 1,500 mg PO BEDTIME [facility] Last Admin: 10/25/22 20:37 Dose: 1,500 mg Documented By: ANDREA Docusate Sodium (Docusate Sodium 100 Mg Capsule) 100 mg PO DAILY PRN PRN Reason: Constipation Docusate Sodium (Docusate Sodium 100 Mg Capsule) 100 mg PO DAILY PRN PRN Reason: constipation Enoxaparin Sodium (Enoxaparin Sodium 40 Mg/0.4 Ml Syringe) 40 mg SUBCUT Q24H [facility] Last Admin: 10/26/22 05:22 Dose: 40 mg Documented By: ANDREA Fluphenazine HCl (Fluphenazine Hcl 5 Mg Tablet) 5 mg PO BID [facility] Last Admin: 10/26/22 08:03 Dose: 5 mg Documented By: FELIX Gabapentin (Gabapentin 300 Mg Capsule) 300 mg PO TID [facility] Last Admin: 10/26/22 15:52 Dose: 300 mg Documented By: FELIX Glucose (Glucose Gel 15 Gm Gel..Gram.) 15 gm PO Q15M PRN; Protocol PRN Reason: per Hypoglycemia Standing Ord. Ceftriaxone Sodium 1 gm/ (Sodium Chloride) 50 mls @ 100 mls/hr IV Q24H [facility] Last Infusion: 10/26/22 00:24 Dose: 0 mls/hr Documented By: ANDREA Insulin Glargine (Insulin Glargine,Hum.Rec.Anlog 100 Unit/Ml 10 Ml Vial) 10 unit SUBCUT DAILY [facility] Last Admin: 10/26/22 08:04 Dose: 10 unit Documented By: FELIX Insulin Human Lispro (Insulin Lispro 100 Unit/Ml 3 Ml Vial) 0 unit SUBCUT QIDACHS [facility]; Protocol Last Admin: 10/26/22 11:36 Dose: 4 unit Documented By: FELIX Magnesium Hydroxide (Milk Of Magnesia 30 Ml Oral.Susp) 5 ml PO BEDTIME PRN PRN Reason: for severe constipation only Nicotine (Nicotine 21 Mg Patch.Td24) 21 mg TRANSDERMA DAILY [facility] Last Admin: 10/26/22 08:04 Dose: 21 mg Documented By: FELIX Non-Formulary Medication (Umeclidinium [Incruse Ellipta]) 1 inhalation PO DAILY [facility] Olanzapine (Olanzapine 10 Mg Tablet) 10 mg PO BID [facility] Last Admin: 10/26/22 08:03 Dose: 10 mg Documented By: FELIX Omeprazole (Omeprazole 20 Mg Capsule.Dr) 20 mg PO BID@0630,1630 [facility] Last Admin: 10/26/22 15:52 Dose: 20 mg Documented By: FELIX Ondansetron HCl (Ondansetron Hcl 4 Mg/2 Ml Vial) 4 mg IVPUSH Q8H PRN PRN Reason: Nausea and Vomiting Pharmacy Consult (Consult Rx Perform Med Rec) 1 each MISCELLANE ONCE PRN PRN Reason: Consult order Prednisone (Prednisone 20 Mg Tablet) 20 mg PO DAILY [facility] Last Admin: 10/26/22 08:04 Dose: 20 mg Documented By: FELIX Propranolol HCl (Propranolol Hcl 20 Mg Tablet) 20 mg PO BEDTIME [facility]; Protocol Last Admin: 10/25/22 20:37 Dose: 20 mg Documented By: ANDREA Comments: bp 129/58 Sodium Chloride (0.9 % Sodium Chloride Flush 3 Ml Syringe) 3 ml IVFLUSH QSHIFT [facility] Last Admin: 10/26/22 15:53 Dose: 3 ml Documented By: FELIX Urea (Urea 15 Gm Powder) 15 gm PO BID [facility] Last Admin: 10/26/22 08:04 Dose: 15 gm Documented By: FELIX Labs 10/25/22 06:13 10/26/22 07:32 Labs: Laboratory Results - last 24 hr 10/25/22 10/25/22 10/25/22 16:06 16:19 19:48 Anion Gap 15 11 L Estim Creat Clear Calc 58.2 53.1 Estimated GFR 58 52 POC Glucose 332 H Random Glucose 295 H 311 H Calcium 8.9 8.9 10/25/22 10/26/22 10/26/22 20:23 07:17 07:32 Anion Gap 15 Estim Creat Clear Calc 65.6 Estimated GFR > 60 POC Glucose 291 H 250 H Random Glucose 247 H Calcium 9.3 10/26/22 11:00 Anion Gap Estim Creat Clear Calc Estimated GFR POC Glucose 203 H Random Glucose Calcium Microbiology Microbiology Results: Microbiology 10/25/22 00:34 Blood Culture - Preliminary Blood - Venous No growth after 24 hours. 10/25/22 00:34 Blood Culture - Preliminary Blood - Venous No growth after 24 hours. Assessment and Plan (1) Hyponatremia: Status: Acute (2) Community acquired pneumonia: Status: Acute Plan 67-year-old male with past medical history of diabetes, hypertension, schizophrenia presents to the hospital with complaints of chest pain and left arm pain found to have hyponatremia as well as pneumonia chest pain-nonspecific denies any new chest pains - troponin negative, EKG shows no changes suggestive of ACS echo added - supportive measures hyponatremia - appears to be chronic - likely secondary to SIADH given the low serum osmolality as well as high urine sodium - restrict fluid intake sodium running in range 126-128 range since yesterday: SIADH hypotonic euvolemic hyponatremia - likely secondary to his mood stabilizers - nephrology consulted-- fluid restriction - follow BMP: na around 128 when adjusted for fs. community-acquired pneumonia - is evidence of infiltrate on chest imaging - will treat with IV antibiotics - follow cultures diabetes - hold oral anti hyperglycemics - continue home - insulin diabetic diet - will add low-dose sliding scale insulin hypertension - stable - continue antihypertensives history of COPD - does not appear to be in exacerbation, will continue home inhalers scizophernia : continue olanzapine ,fluphenazine DVT prophylaxis:? Lovenox inpatient need : hyponatremia, cap -need antibiotics ,also needs renal function and electrolyte moniterin Time Spent With Patient Time: Total time managing care of this patient today ____ minutes. Quality Stroke Does the patient have a stroke diagnosis?: No VTE Prior VTE?: No VTE Risk Level:: Medical - moderate - high VTE Device Contraindication: Treatment Not Indicated VTE Drug Contraindication: N/A - Med Ordered
[2022-10-26 16:19] LABS: Glucose, Whole Blood 262 mg/dL (60-115)
[2022-10-26 19:40] VITALS: BP 144/71; PULSE 89; RESP 18; TEMP 36.4; O2SAT 97
[2022-10-26 19:46] LABS: Glucose, Whole Blood 358 mg/dL (60-115)
[2022-10-26] MEDS: Propranolol HCL 20 MG TABLET PO (20:26)
[2022-10-26] MEDS: Divalproex Sodium ER 500 MG TAB.ER.24H 1500 MG PO (20:26)
[2022-10-26] MEDS: Benzonatate 100 MG CAPSULE PO (20:30)
[2022-10-26] MEDS: Acetaminophen 325 MG TABLET 650 MG PO (20:30)
--- NOTE | 2022-10-26 21:02 | PC.NURSE ---
POC at HS =358, Dr. Nguyen was informed, covered per sliding scale of 12 units MD Blair agreed.
[2022-10-26] MEDS: cefTRIAXone sodium 1 GM in 0.9 % Sodium Chloride 50 ML IV (22:43)
[2022-10-27 03:12] VITALS: BP 138/74; PULSE 78; RESP 18; TEMP 36.2; O2SAT 98
[2022-10-27] MEDS: Enoxaparin Sodium 40 MG/0.4 ML SYRINGE SUBCUT (04:46)
[2022-10-27] MEDS: Azithromycin 500 MG TABLET PO (04:46)
[2022-10-27] MEDS: Omeprazole 20 MG CAPSULE.DR PO ×2 (05:54→17:00)
[2022-10-27 07:37] VITALS: BP 152/72; PULSE 70; RESP 16; TEMP 36.2; O2SAT 98
[2022-10-27 07:54] LABS: Glucose, Whole Blood 171 mg/dL (60-115)
[2022-10-27] MEDS: fluPHENAZine HCl 5 MG TABLET PO ×2 (07:58→20:36)
[2022-10-27] MEDS: Aspirin Enteric Coated 81 MG TABLET.DR PO (07:58)
[2022-10-27] MEDS: predniSONE 10 MG TABLET PO (07:58)
[2022-10-27] MEDS: Urea 15 GM POWDER PO ×2 (07:58→20:35)
[2022-10-27] MEDS: OLANZapine 10 MG TABLET PO ×2 (07:58→20:37)
[2022-10-27] MEDS: Gabapentin 300 MG CAPSULE PO ×3 (07:58→20:36)
[2022-10-27] MEDS: Atorvastatin Calcium 10 MG TABLET PO (07:58)
[2022-10-27] MEDS: Insulin Lispro 100 UNIT/ML 3 ML VIAL SUBCUT ×4 (07:59→20:48)
[2022-10-27] MEDS: Nicotine 21 MG PATCH.TD24 TRANSDERMA (07:59)
[2022-10-27] MEDS: Benztropine Mesylate 1 MG TABLET 2 MG PO ×2 (07:59→20:36)
[2022-10-27] MEDS: amLODIPine Besylate 10 MG TABLET PO (07:59)
[2022-10-27] MEDS: Insulin Glargine,Hum.rec.anlog 100 UNIT/ML 10 ML VIAL 12 UNIT SUBCUT (07:59)
[2022-10-27 08:00] LABS: Anion Gap 13 (12-20); Blood Urea Nitrogen 29 mg/dL (9-16); Calcium 9.1 mg/dL (8.4-10.2); Carbon Dioxide 24 mmol/L (22-29); Chloride 95 mmol/L (96-108); Creatinine Clr Calc Pharmacy 68.7; Estimated Glomerular Filt Rate > 60; Glucose Random 167 mg/dL (60-115); Potassium 3.9 mmol/L (3.3-5.1); Sodium 128 mmol/L (135-145)
[2022-10-27 08:03] LABS: Estimated Average Glucose 166 mg/dL; Hemoglobin A1c % 7.4 %
--- NOTE | 2022-10-27 08:21 | PM.PNNEP ---
Subjective Subjective Date of Service: 10/27/22 Interval history: seen and examined no complaints Physical Exam Vital Signs: Vital Signs: Last Vital Signs Temp 97.2 F 10/27/22 07:37 Pulse 70 10/27/22 07:37 Resp 16 10/27/22 07:37 BP 152/72 H 10/27/22 07:37 Pulse Ox 98 10/27/22 07:37 O2 Del Method Room Air 10/27/22 07:37 BMI result Body Mass Index 29.8 Const: General: no acute distress HEENT: Head: Yes normocephalic Neck: Neck: Yes supple Resp: Auscultation: diminished lung sounds Cardio: Heart sounds: S1 normal heart sound present and S2 normal heart sound present GI: Palpation (GI): Soft to palpation and nontender Extrem: General: No edema Objective Data Labs 10/25/22 06:13 10/27/22 07:32 Labs: Laboratory Results - last 24 hr 10/26/22 10/26/22 10/26/22 11:00 16:05 19:39 Sodium Potassium Chloride Carbon Dioxide Anion Gap BUN Creatinine Estim Creat Clear Calc Estimated GFR POC Glucose 203 H 262 H 358 H* Random Glucose Estimat Average Glucose Hemoglobin A1c % Calcium 10/27/22 10/27/22 10/27/22 07:32 07:32 07:47 Sodium 128 L Potassium 3.9 Chloride 95 L Carbon Dioxide 24 Anion Gap 13 BUN 29 H Creatinine 1.06 Estim Creat Clear Calc 68.7 Estimated GFR > 60 POC Glucose 171 H Random Glucose 167 H Estimat Average Glucose 166 Hemoglobin A1c % 7.4 Calcium 9.1 Microbiology Microbiology Results: Microbiology 10/25/22 00:34 Blood - Venous Blood Culture - Preliminary No growth after 48 hours. 10/25/22 00:34 Blood - Venous Blood Culture - Preliminary No growth after 48 hours. Procedures Date of Service Date of Service: 10/27/22 Assessment & Plan Assessment and plan (1) Hyponatremia: Status: Acute Plan Sna down and then back up again on urea hyperglycemia also playing a role in fluctuating Sna hypotonic euvolemic hyponatremia Uosm (201) < Sosm (274) Jennifer 46 not c/w SIADH c/w excessive free water intake and poor solute excretion h/o chronic hyponatremia he is olanzapine and divalproex which can cause SIADH REC fluid restriction 1500 cc daily urea 15 g bid glycemic control goal Sna ~ 128-130 follow electrolytes Time Spent With Patient Time: Total time managing care of this patient today ____ minutes. Progress Note: Quality Stroke Does the patient have a stroke diagnosis?: No
[2022-10-27] MEDS: 0.9 % Sodium Chloride Flush 3 ML SYRINGE IVFLUSH ×3 (09:04→20:37)
--- NOTE | 2022-10-27 11:19 | HO.PM.IMPN ---
Subjective Subjective Date of Service: 10/28/22 Interval History: hyponatremia Review of Systems denies any chest pain or sob or fever sodium still in 128 range Physical Exam Vital Signs: Vital Signs: Last Vital Signs Temp 97.2 F 10/27/22 07:37 Pulse 70 10/27/22 07:37 Resp 16 10/27/22 07:37 BP 152/72 H 10/27/22 07:37 Pulse Ox 98 10/27/22 07:37 O2 Del Method Room Air 10/27/22 07:37 BMI result Body Mass Index 29.8 Appearance: Alert.? Oriented X2.? seems agiatated cvs: [id number], [id number] , no murmur res: clear to auscultation ,no rhonchii or wheezing abd: no rebound or guarding ,nt, bs present. ext pulses present , no cyanosis. neuro: nonfocal. Objective Data Active Medications Acetaminophen (Acetaminophen 325 Mg Tablet) 650 mg PO Q6H PRN PRN Reason: Pain, Mild (Pain Scale 1-3) Last Admin: 10/26/22 20:30 Dose: 650 mg Documented By: ANDREA Albuterol Sulfate (Albuterol Sulfate 90 Mcg 8 Gm Inhaler) 2 puff INHALE Q4H PRN PRN Reason: shortness of breath or wheezing Amlodipine Besylate (Amlodipine Besylate 10 Mg Tablet) 10 mg PO DAILY [facility]; Protocol Last Admin: 10/27/22 07:59 Dose: 10 mg Documented By: FELIX Aspirin (Aspirin Enteric Coated 81 Mg Tablet.) 81 mg PO DAILY [facility] Last Admin: 10/27/22 07:58 Dose: 81 mg Documented By: FELIX Atorvastatin Calcium (Atorvastatin Calcium 10 Mg Tablet) 10 mg PO DAILY [facility] Last Admin: 10/27/22 07:58 Dose: 10 mg Documented By: FELIX Azithromycin (Azithromycin 500 Mg Tablet) 500 mg PO Q24H [facility] Last Admin: 10/27/22 04:46 Dose: 500 mg Documented By: MIROSLAVA Benzonatate (Benzonatate 100 Mg Capsule) 100 mg PO BID PRN PRN Reason: cough Last Admin: 10/26/22 20:30 Dose: 100 mg Documented By: ANDREA Benztropine Mesylate (Benztropine Mesylate 1 Mg Tablet) 2 mg PO BID [facility] Last Admin: 10/27/22 07:59 Dose: 2 mg Documented By: FELIX Albuterol Sulfate 2.5 mg/ (Ipratropium [place] 0.5 mg) 0 mg INHALE RQ4H WHILE AWAKE PRN PRN Reason: SOB, whhezing Divalproex Sodium (Divalproex Sodium Er 500 Mg Tab.Er.24h) 1,500 mg PO BEDTIME [facility] Last Admin: 10/26/22 20:26 Dose: 1,500 mg Documented By: CASTJOAQUIN Docusate Sodium (Docusate Sodium 100 Mg Capsule) 100 mg PO DAILY PRN PRN Reason: Constipation Docusate Sodium (Docusate Sodium 100 Mg Capsule) 100 mg PO DAILY PRN PRN Reason: constipation Enoxaparin Sodium (Enoxaparin Sodium 40 Mg/0.4 Ml Syringe) 40 mg SUBCUT Q24H [facility] Last Admin: 10/27/22 04:46 Dose: 40 mg Documented By: MIROSLAVA Fluphenazine HCl (Fluphenazine Hcl 5 Mg Tablet) 5 mg PO BID [facility] Last Admin: 10/27/22 07:58 Dose: 5 mg Documented By: FELIX Gabapentin (Gabapentin 300 Mg Capsule) 300 mg PO TID [facility] Last Admin: 10/27/22 07:58 Dose: 300 mg Documented By: FELIX Glucose (Glucose Gel 15 Gm Gel..Gram.) 15 gm PO Q15M PRN; Protocol PRN Reason: per Hypoglycemia Standing Ord. Ceftriaxone Sodium 1 gm/ (Sodium Chloride) 50 mls @ 100 mls/hr IV Q24H [facility] Last Infusion: 10/26/22 23:13 Dose: 0 mls/hr Documented By: MIROSLAVA Insulin Glargine (Insulin Glargine,Hum.Rec.Anlog 100 Unit/Ml 10 Ml Vial) 12 unit SUBCUT DAILY [facility] Last Admin: 10/27/22 07:59 Dose: 12 unit Documented By: FELIX Insulin Human Lispro (Insulin Lispro 100 Unit/Ml 3 Ml Vial) 0 unit SUBCUT QIDACHS [facility]; Protocol Last Admin: 10/27/22 07:59 Dose: 2 unit Documented By: FELIX Magnesium Hydroxide (Milk Of Magnesia 30 Ml Oral.Susp) 5 ml PO BEDTIME PRN PRN Reason: for severe constipation only Nicotine (Nicotine 21 Mg Patch.Td24) 21 mg TRANSDERMA DAILY [facility] Last Admin: 10/27/22 07:59 Dose: 21 mg Documented By: FELIX Non-Formulary Medication (Umeclidinium [Incruse Ellipta]) 1 inhalation PO DAILY [facility] Olanzapine (Olanzapine 10 Mg Tablet) 10 mg PO BID [facility] Last Admin: 10/27/22 07:58 Dose: 10 mg Documented By: FELIX Omeprazole (Omeprazole 20 Mg Capsule.Dr) 20 mg PO BID@0630,1630 [facility] Last Admin: 10/27/22 05:54 Dose: 20 mg Documented By: MIROSLAVA Ondansetron HCl (Ondansetron Hcl 4 Mg/2 Ml Vial) 4 mg IVPUSH Q8H PRN PRN Reason: Nausea and Vomiting Pharmacy Consult (Consult Rx Perform Med Rec) 1 each MISCELLANE ONCE PRN PRN Reason: Consult order Prednisone (Prednisone 10 Mg Tablet) 10 mg PO DAILY [facility] Last Admin: 10/27/22 07:58 Dose: 10 mg Documented By: FELIX Propranolol HCl (Propranolol Hcl 20 Mg Tablet) 20 mg PO BEDTIME [facility]; Protocol Last Admin: 10/26/22 20:26 Dose: 20 mg Documented By: ANDREA Comments: BP 164/71 h 89 Sodium Chloride (0.9 % Sodium Chloride Flush 3 Ml Syringe) 3 ml IVFLUSH QSHIFT [facility] Last Admin: 10/27/22 09:04 Dose: 3 ml Documented By: FELIX Urea (Urea 15 Gm Powder) 15 gm PO BID [facility] Last Admin: 10/27/22 07:58 Dose: 15 gm Documented By: FELIX Labs 10/25/22 06:13 10/27/22 07:32 Labs: Laboratory Results - last 24 hr 10/26/22 10/26/22 10/27/22 16:05 19:39 07:32 Anion Gap 13 Estim Creat Clear Calc 68.7 Estimated GFR > 60 POC Glucose 262 H 358 H* Random Glucose 167 H Estimat Average Glucose Hemoglobin A1c % Calcium 9.1 10/27/22 10/27/22 07:32 07:47 Anion Gap Estim Creat Clear Calc Estimated GFR POC Glucose 171 H Random Glucose Estimat Average Glucose 166 Hemoglobin A1c % 7.4 Calcium Microbiology Microbiology Results: Microbiology 10/25/22 00:34 Blood Culture - Preliminary Blood - Venous No growth after 48 hours. 10/25/22 00:34 Blood Culture - Preliminary Blood - Venous No growth after 48 hours. Assessment and Plan (1) Hyponatremia: Status: Acute (2) Community acquired pneumonia: Status: Acute Plan 67-year-old male with past medical history of diabetes, hypertension, schizophrenia presents to the hospital with complaints of chest pain and left arm pain found to have hyponatremia as well as pneumonia chest pain-nonspecific denies any new chest pains - troponin negative, EKG shows no changes suggestive of ACS echo noted seems fine - supportive measures hyponatremia - appears to be chronic - likely secondary to SIADH given the low serum osmolality as well as high urine sodium - restrict fluid intake,added urea sodium running in range 126-128 range nephro follow pending SIADH hypotonic euvolemic hyponatremia - likely secondary to his mood stabilizers - nephrology consulted-- fluid restriction - follow BMP: na around 128 when adjusted for fs. community-acquired pneumonia - is evidence of infiltrate on chest imaging - will treat with IV antibiotics - follow cultures diabetes - hold oral anti hyperglycemics - continue home - insulin diabetic diet - will add low-dose sliding scale insulin hypertension - stable - continue antihypertensives history of COPD - does not appear to be in exacerbation, will continue home inhalers scizophernia : continue olanzapine ,fluphenazine DVT prophylaxis:? Lovenox inpatient need : hyponatremia, cap -need antibiotics ,also needs renal function and electrolyte moniterin Time Spent With Patient Time: Total time managing care of this patient today ____ minutes. Quality Stroke Does the patient have a stroke diagnosis?: No VTE Prior VTE?: No VTE Risk Level:: Medical - moderate - high VTE Device Contraindication: Treatment Not Indicated VTE Drug Contraindication: N/A - Med Ordered
[2022-10-27 11:47] LABS: Glucose, Whole Blood 221 mg/dL (60-115)
[2022-10-27] MEDS: Acetaminophen 325 MG TABLET 650 MG PO (14:19)
[2022-10-27 15:32] VITALS: BP 142/80; PULSE 79; RESP 18; TEMP 36.8; O2SAT 98
[2022-10-27 16:16] LABS: Glucose, Whole Blood 270 mg/dL (60-115)
[2022-10-27 19:39] VITALS: BP 153/79; PULSE 78; RESP 16; TEMP 36.3; O2SAT 98
[2022-10-27 20:17] LABS: Glucose, Whole Blood 278 mg/dL (60-115)
[2022-10-27] MEDS: Divalproex Sodium ER 500 MG TAB.ER.24H 1500 MG PO (20:36)
[2022-10-27] MEDS: Propranolol HCL 20 MG TABLET PO (20:36)
[2022-10-27] MEDS: cefTRIAXone sodium 1 GM in 0.9 % Sodium Chloride 50 ML IV (22:47)
[2022-10-28 02:51] VITALS: BP 140/65; PULSE 80; RESP 20; TEMP 36.7; O2SAT 95
[2022-10-28] MEDS: Omeprazole 20 MG CAPSULE.DR PO (04:59)
[2022-10-28] MEDS: Azithromycin 500 MG TABLET PO (04:59)
[2022-10-28] MEDS: Enoxaparin Sodium 40 MG/0.4 ML SYRINGE SUBCUT (04:59)
[2022-10-28 07:25] VITALS: BP 101/51; PULSE 77; RESP 18; TEMP 36.5; O2SAT 96
[2022-10-28 07:38] LABS: Glucose, Whole Blood 149 mg/dL (60-115)
[2022-10-28] MEDS: Nicotine 21 MG PATCH.TD24 TRANSDERMA (08:45)
[2022-10-28] MEDS: predniSONE 10 MG TABLET PO (08:46)
[2022-10-28] MEDS: fluPHENAZine HCl 5 MG TABLET PO (08:46)
[2022-10-28] MEDS: Atorvastatin Calcium 10 MG TABLET PO (08:46)
[2022-10-28] MEDS: Aspirin Enteric Coated 81 MG TABLET.DR PO (08:46)
[2022-10-28] MEDS: Benztropine Mesylate 1 MG TABLET 2 MG PO (08:46)
[2022-10-28] MEDS: 0.9 % Sodium Chloride Flush 3 ML SYRINGE IVFLUSH (08:47)
[2022-10-28] MEDS: OLANZapine 10 MG TABLET PO (08:47)
[2022-10-28] MEDS: Insulin Glargine,Hum.rec.anlog 100 UNIT/ML 10 ML VIAL 12 UNIT SUBCUT (08:47)
[2022-10-28] MEDS: Gabapentin 300 MG CAPSULE PO (08:47)
[2022-10-28] MEDS: amLODIPine Besylate 10 MG TABLET PO (08:47)
[2022-10-28] MEDS: Urea 15 GM POWDER PO (08:47)
--- NOTE | 2022-10-28 10:36 | MHC.CM.PN ---
Addendum entered by Waleska Vargas 10/28/22 13:19: DC SUMMARY FAXED TO [facility] WORK[facility] AT [facility] TO TRANSPORT PT BACK TO LONG TERM Addendum entered by Waleska Vargas 10/28/22 11:23: CM WILL FAX PTS DCS TO [facility] AT [phone] ONCE AVAILABLE Addendum entered by Waleska Vargas 10/28/22 11:17: CM RECEIVED A CALL FROM SHERRILL OSORIO) AT PTS LONG TERM. HE REPORTS HE WILL BE HERE TO TRANSPORT PT AROUND 1230 TODAY HE IS AWARE [facility] WILL RESUME SERVICES TOMORROW Original Note: SACHI RECEIVED A CALL FROM CASPER AT [facility] [phone] WHO REPORTS PT IS ACTIVE WITH THEM FOR DAILY INSULIN ADMINISTRATION AND BEHAVIORAL/PHYSICAL HEALTH ASSESSMENTS. SHE IS NOW AWARE PT WILL RETURN TO LONG TERM TODAY AND SAYS THEY WILL RESUME SERVICES TOMORROW SACHI CALLED PTS LONG TERM [phone] TO SPEAK TO [facility] [employer] [facility], [facility], HOWEVER SHE WAS UNAVAILABLE MESSAGE LEFT INFORMING THEM OF INTENT TO DC AND REQUESTING A RETURN CALL.
--- NOTE | 2022-10-28 10:44 | PM.PNNEP ---
Subjective Subjective Date of Service: 10/28/22 Interval history: hyponatremia Still with cough Physical Exam Vital Signs: Vital Signs: Last Vital Signs Temp 97.7 F 10/28/22 07:25 Pulse 77 10/28/22 07:25 Resp 18 10/28/22 07:25 BP 101/51 L 10/28/22 07:25 Pulse Ox 96 10/28/22 07:25 O2 Del Method Room Air 10/28/22 07:25 BMI result Body Mass Index 29.8 Const: General: no acute distress HEENT: Head: Yes normocephalic Neck: Neck: Yes supple Resp: Auscultation: diminished lung sounds Cardio: Heart sounds: S1 normal heart sound present and S2 normal heart sound present GI: Palpation (GI): Soft to palpation and nontender Extrem: General: No edema Objective Data Labs 10/25/22 06:13 10/27/22 07:32 Labs: Laboratory Results - last 24 hr 10/27/22 10/27/22 10/27/22 11:42 16:07 20:02 POC Glucose 221 H 270 H 278 H 10/28/22 07:27 POC Glucose 149 H Microbiology Microbiology Results: Microbiology 10/25/22 00:34 Blood - Venous Blood Culture - Preliminary No growth after 48 hours. 10/25/22 00:34 Blood - Venous Blood Culture - Preliminary No growth after 48 hours. Procedures Date of Service Date of Service: 10/28/22 Assessment & Plan Assessment and plan (1) Hyponatremia: Status: Acute Plan Sna down and then back up again on urea hyperglycemia also playing a role in fluctuating Sna hypotonic euvolemic hyponatremia due to non osmotic ADH release. Serum sodium is close to baseline. c/w excessive free water intake and poor solute excretion h/o chronic hyponatremia he is olanzapine and divalproex which can cause SIADH REC P.o. waterrestriction 1000 cc daily urea 15 g bid glycemic control goal Sna ~ 128-130 renal function is close to baseline follow electrolytes Time Spent With Patient Time: Total time managing care of this patient today ____ minutes. Progress Note: Quality Stroke Does the patient have a stroke diagnosis?: No
[2022-10-28 11:35] LABS: Glucose, Whole Blood 307 mg/dL (60-115)
[2022-10-28] MEDS: Insulin Lispro 100 UNIT/ML 3 ML VIAL SUBCUT (11:44)
--- NOTE | 2022-10-28 12:25 | P.DS_ITS ---
DS: Providers Provider Date of Service: 10/28/22 Date of admission: 10/25/22 04:48 Date of discharge: 10/28/22 Primary care physician: Unknown Physician Consults: 10/25/22 04:47 Consult to Nephrology Stat Consulting Provider: [facility] Reason for consultation: hyponatremia 10/25/22 11:01 Consult to Psychiatry Routine Consulting Provider: Psych Covering Reason for consultation: mood dis /agitated /interferes with treatements,?knows consequense AMA Has provider been notified: No DS: Diagnosis Discharge Diagnosis (1) Hyponatremia: Status: Acute (2) Community acquired pneumonia: Status: Acute (3) Chest pain: Status: Acute DS: Summary Hospital Course Hospital Course: 67-year-old male with past medical history of COPD, HTN, HLD, multiple fall merry nodules, schizophrenia, type 2 diabetes, who presents to the hospital from [place] [facility] with complaints of chest pain and left arm pain.? Patient is currently very somnolent, wakes up to verbal command but falls back asleep.? I am unable to get much history from him, history is obtained from ED physician as well as EMR.? It appears the patient lives in a [place] [facility], comes into the hospital with complaints of chest pain, left arm pain that started yesterday, had described the pain as constant, 9/10, radiating to the left arm.? Unable to complete review of system due to patient's mental status On arrival to the ED patient hemodynamically stable no significant abnormal vitals Labs are significant for WBC count of 9.8, hemoglobin of 11, hematocrit a 1.9, sodium of 125, and appears to be chronically low Serum osmolality of 274, urine osmolality of 201, urine sodium of 46 Chest x-ray shows bilateral opacities consistent with his lactase/infiltrate Troponin negative x1, EKG shows normal sinus rhythm with no significant abnormal ST T wave changes. hospital course: Patient was admitted with possible chest tightness and cough: Found to have pneumonia started on IV antibiotics , blood cultures sent: Patient does not have leukocytosis, no fever, blood cultures negative, seems to be improved significantly: Switched to p.o. antibiotics. Please repeat chest imaging study in 3-4 weeks to see resolution of pneumonia. Chest tightness : Seems more likely musculocutaneous or related to pneumonia : heart enzymes negative,EKG shows normal sinus rhythm with no significant abnormal ST T wave changes, Echo seems to be fine(please see imaging section for detail), further workup and management outpatient. Hyponatremia: Discuss Nephrology patient is running in 128 range chronically. Currently stable sodium 128, monitor BMP outpatient. Follow-up with Nephrology outpatient. Patient is going back to the [place] [facility], currently at his baseline . Follow-up [facility] outpatient. Plan : Complete course of antibiotics (Ceftin and azithromycin). Follow-up renal function and electrolytes outpatient. Follow-up with Nephrology outpatient. further cardiac workup outpatient. Assessment and plan coordination time spent 50 minute. Time Spent with Patient Time attestation: Total time managing care of this patient today ____ minutes. Discharge coordination time: Greater than 30 minutes Quality: Safe Use of Opioids Does Pt have an Active Cancer Diagnosis on the Problem List?: No Quality: Stroke Does the patient have a stroke diagnosis?: No Physical Exam Vital Signs: Vital Signs: Last Vital Signs Temp 97.7 F 10/28/22 07:25 Pulse 77 10/28/22 07:25 Resp 18 10/28/22 07:25 BP 101/51 L 10/28/22 07:25 Pulse Ox 96 10/28/22 07:25 O2 Del Method Room Air 10/28/22 07:25 BMI result Body Mass Index 29.8 Appearance: Alert.? Oriented near baseline.? seems agiatated cvs: rrr, [id number] , no murmur res: clear to auscultation ,no rhonchii or wheezing abd: no rebound or guarding ,nt, bs present. ext pulses present , no cyanosis. neuro: nonfocal. DS: Data Data Completed and Pending Labs on day of discharge: Laboratory Results - last 24 hr 10/27/22 10/27/22 10/28/22 16:07 20:02 07:27 POC Glucose 270 H 278 H 149 H 10/28/22 11:26 POC Glucose 307 H Preliminary micro results at discharge 10/25/22 00:34 Blood Culture - Preliminary Blood - Venous No growth after 48 hours. 10/25/22 00:34 Blood Culture - Preliminary Blood - Venous No growth after 48 hours. Imaging Chest x-ray: Radiologist's impression: ITS Impressions Chest X-Ray 10/24/22 22:03 IMPRESSION: Bilateral opacities consistent with atelectasis/small areas of infiltrate and probable process in the right midlung/right hilar region. Follow-up recommended after treatment to assess for resolution and establish baseline. 4-6 weeks. There is no failure or effusion. The heart size is within normal limits Head CT 10/25/22 06:40 IMPRESSION: No acute intracranial pathology. Shoulder X-Ray 10/25/22 12:30 IMPRESSION: Mild left acromioclavicular osteoarthritis. No acute fracture. Soft Tissue Neck X-Ray 10/25/22 12:30 IMPRESSION: Degenerative changes in the cervical spine as detailed above. No overt soft tissue abnormality. Discharge Plan Discharge Anticipated Discharge Date/Time: 10/28/22 10:21 Patient Disposition: Home, Self-Care Discharge Diagnosis: pneumonia ,chest pain,hyponatremia Referrals: Medhat Navarrete MD [Physician] - 1 Week (follow up outpatient) Physician,Galindo J [Primary Care Provider] - 1 Week Discharge Medications: New cefuroxime axetil 500 mg tablet 500 mg PO BID Qty: 8 0RF azithromycin 500 mg tablet 500 mg PO DAILY 4 Days Qty: 4 0RF Rx Instructions: start on day 2 of therapy Continued (DME) blood-glucose meter [FreeStyle Lite Meter] Kit See Rx Instructions .ROUTE .MEDSUPPLY Qty: 1 0RF Rx Instructions: As directed docusate sodium 100 mg capsule 100 mg PO DAILY PRN (Reason: constipation) Qty: 30 6RF lisinopril-hydrochlorothiazide 10-12.5 mg tablet 1 tab PO DAILY 30 Days Qty: 30 3RF amlodipine 10 mg tablet 10 mg PO DAILY 90 Days Qty: 90 1RF Incruse Ellipta 62.5 mcg/actuation blister with device 1 inh PO DAILY Qty: 30 2RF Trulicity 0.75 mg/0.5 mL pen injector 0.75 mg subcut FR@0900 Qty: 2 0RF insulin degludec [Tresiba FlexTouch U-100] 100 unit/mL (3 mL) insulin pen 10 unit subcut DAILY Qty: 15 1RF magnesium hydroxide [Milk of Magnesia] 400 mg/5 mL suspension 5 ml PO BEDTIME PRN (Reason: for severe constipation only) Qty: 355 0RF acetaminophen [Tylenol 8 Hour] 650 mg tablet extended release 650 mg PO Q6H PRN (Reason: pain) 30 Days Qty: 120 0RF atorvastatin 10 mg tablet 10 mg PO DAILY Qty: 30 3RF (DME) FreeStyle Lite Strips Strip See Rx Instructions .Route Qty: 100 6RF Rx Instructions: Use to check blood sugar three times daily (DME) pen needle, diabetic [BD Ultra-Fine Mini Pen Needle] 31 gauge x 3/16 needle See Rx Instructions subcut TID Qty: 50 0RF Rx Instructions: As directed aspirin [Adult Low Dose Aspirin] 81 mg tablet,delayed release (DR/EC) 81 mg PO DAILY Qty: 90 0RF benzonatate 100 mg capsule 100 mg PO BID PRN (Reason: cough) Qty: 20 0RF prednisone 20 mg tablet 20 mg PO DAILY 5 Days Qty: 5 0RF albuterol sulfate 90 mcg/actuation aerosol powdr breath activated 2 inh inhalation Q4-6H PRN (Reason: shortness of breath or wheezing) Qty: 1 0RF propranolol 20 mg tablet 1 tab PO BEDTIME omeprazole 20 mg capsule,delayed release(DR/EC) 20 mg PO BID benztropine 2 mg tablet 2 mg PO BID gabapentin 300 mg capsule 300 mg PO TID fluphenazine HCl 5 mg tablet 5 mg PO BID olanzapine 10 mg tablet 10 mg PO BID divalproex 500 mg tablet extended release 24 hr 1,500 mg PO BEDTIME Discharge Orders: Discharge Order (Routine); Ordered 10/28/22 Ordered By: Kristen Kruger Diet: Advance to usual diet Activity on Discharge: As tolerated Stand Alone Forms: Patient Portal Discharge page Care Plan Goals: Patient was admitted with possible chest tightness and cough: Found to have pneumonia started on IV antibiotics , blood cultures sent: Patient does not have leukocytosis, no fever, blood cultures negative, seems to be improved significantly: Switched to p.o. antibiotics. Please repeat chest imaging study in 3-4 weeks to see resolution of pneumonia. Chest tightness : Seems more likely musculocutaneous or related to pneumonia : heart enzymes negative, Echo seems to be fine, further workup and management outpatient. Hyponatremia: Discuss Nephrology patient is running in 128 range chronically. Currently stable sodium 128, monitor [facility] outpatient. Follow-up with Nephrology outpatient. Patient is going back to the [place] [facility], currently at his baseline . Follow-up [facility] outpatient. Health Concerns: As above. Plan of Treatment: As above. Assessment: As above.
== END 2022-10-28 12:58 | disposition home or self-care (01) | DRG 193 ==
LOC: HO.ED 10-25 04:13 → HO.EDOVER 10-25 04:55 → HO.S3 10-25 11:15
PROVIDERS: Admitting Provider Internal Medicine; Emergency Provider Internal Medicine; PCP Nurse Practitioner Family; Visit Provider Internal Medicine
DX: J18.9 Pneumonia, unspecified organism (principal); G93.41 Metabolic encephalopathy; E22.2 Syndrome of inappropriate secretion of antidiuretic hormone; J43.2 Centrilobular emphysema; T43.595A Adverse effect of other antipsychotics and neuroleptics, initial encounter; E78.5 Hyperlipidemia, unspecified; E11.42 Type 2 diabetes mellitus with diabetic polyneuropathy; Z20.822 Contact with and (suspected) exposure to COVID-19; Z79.4 Long term (current) use of insulin; Z79.82 Long term (current) use of aspirin; Z79.899 Other long term (current) drug therapy
CPT/HCPCS: 36415; 70360; 70450; 71046; 73030; 80048; 80053; 81001; 82436; 82803; 82947; 83036; 83605; 83735; 83880; 83930; 83935; 84295; 84300; 84484; 85025; 85027; 85610; 85730; 87040; 87635; 93005; 93306; 94640; 99285; J0696; J1650; Q9957

== ENCOUNTER 2022-11-15 08:43 | Outpatient (REF) | payer MEDICARE, MEDICAID, SELFPAY ==
--- NOTE | ~2022-11-15 | CT_ITS ---
EXAMINATION: CT CHEST SCREENING CLINICAL INFORMATION: Current smoker. [id number] history. COMPARISON: Previous CT of the abdomen and pelvis August 2022. TECHNIQUE: Multidetector volumetric CT imaging of the chest is performed without contrast using low dose technique. Additional 2D coronal and sagittal reformatted images and axial 3D maximum intensity projection (MIP) images are generated on the CT workstation. This CT examination was performed using dose optimization techniques as appropriate, variously including the following: *Automated exposure control *Adjustment of mA and/or kV according to patient size (this includes techniques or standardized protocols for targeted exams where dose is matched to indication/reason for exam; i.e. extremities or head) *Use of iterative reconstruction technique DLP: 52 mGy-cm FINDINGS: Exam is limited due to artifact from respiratory motion particularly at the lung bases. LUNGS: There is evidence of emphysema. There are increased peripheral reticular markings suggestive of interstitial lung disease. Multiple bilateral pulmonary nodules. Largest pulmonary nodules are as follows: There is a 6 mm right upper lobe nodule, axial image 170 series 5. This does not appear appreciably changed. There is a 6 mm peripheral or subpleural right upper lobe nodule, axial image 167 series 5. This does not appear appreciably changed. There is a 4 mm right upper lobe nodule, axial image 230 series 5, that is stable. There is a 5 mm peripheral or subpleural left lower lobe nodule, axial image 296 series 5, that is stable. There is a triangular-shaped 7 mm peripheral or subpleural right middle lobe nodule adjacent to the minor fissure probably representing a subpleural lymph node. This does not appear appreciably changed. There is a 4 mm peripheral right lower lobe nodule, axial image 329 series 4, that is stable. There is a 5 mm peripheral or subpleural lingular nodule adjacent to the mediastinum/heart border, axial image 342 series 5, that is stable. 8 mm lesion in the right bronchus intermedius, axial image 271 series 5. This is similar in retrospect 2021 exam. This is new from older exam from 2020. MEDIASTINUM: The mediastinum is normal. CORONARY ARTERY CALCIFICATION: Moderate PLEURA: There is no pleural effusion. No pleural mass or thickening. AXILLA: Slightly asymmetric right-sided gynecomastia. This is similar to previous exams. No enlarged lymph nodes. UPPER ABDOMEN: Unremarkable OSSEOUS STRUCTURES: Degenerative changes of the spine. CT/CT lung screening IMPRESSION: Severe emphysema. Evidence of peripheral interstitial lung disease. Multiple bilateral pulmonary nodules not appreciably changed from most recent exam November 2021. Largest measures 6 mm in the right upper lobe. 8 mm endobronchial lesion in the right bronchus intermedius. ASSESSMENT: Lung-RADS category 4. RECOMMENDATION: Bronchoscopy correlation recommended.
== END 2022-11-15 08:44 | disposition home or self-care (01) ==
LOC: HO.CT 08:43
PROVIDERS: PCP Nurse Practitioner Family; Visit Provider Surgery
DX: Z12.2 Encounter for screening for malignant neoplasm of respiratory organs (principal); F17.210 Nicotine dependence, cigarettes, uncomplicated
CPT/HCPCS: 71271

== ENCOUNTER 2022-12-08 21:47 | Emergency (ER) | payer MEDICARE, MEDICAID, SELFPAY ==
--- NOTE | 2022-12-08 | ECG_ITS ---
Test Reason : chest pain Blood Pressure : / mmHG Vent. Rate : 076 BPM Atrial Rate : 076 BPM P-R Int : 184 ms QRS Dur : 098 ms QT Int : 372 ms P-R-T Axes : 072 011 048 degrees QTc Int : 418 ms Normal sinus rhythm Normal ECG When compared with ECG of 24-OCT-2022 21:48, No significant change was found Referred By: Generic ED Physician Electronically Signed By:FELISA LOERA
--- NOTE | ~2022-12-08 | XR_ITS ---
EXAMINATION: XR CHEST CLINICAL INFORMATION: Chest pain COMPARISON: Chest x-ray 10/24/2022 TECHNIQUE: Frontal portable view of the chest was obtained. 2315 hours FINDINGS: Lungs are clear. No pulmonary vascular congestion. There is no pleural effusion. The heart size is normal. The cardiac and mediastinal contours are normal. . There are multilevel degenerative changes of dorsal spine. XR/XR chest 1V IMPRESSION: Unremarkable examination.
[2022-12-08 21:56] VITALS: BP 146/78; PULSE 80; O2SAT 98
[2022-12-08 22:14] VITALS: BP 123/67; PULSE 76; RESP 21; TEMP 36.6; O2SAT 93; BMI 30.7
[2022-12-08 22:26] LABS: MANUAL DIFF FLAG NO
[2022-12-08 22:27] LABS: Basophils Percent Auto 0.4 % (0-2); Eosinophils Absolute Auto 0.9 X10*3/uL (0.0-0.4); Eosinophils Percent Auto 9.7 % (0-4); Hematocrit 30.3 % (42.0-52.0); Hemoglobin 10.4 g/dl (14.0-18.0); Imm Gran Abs Auto 0.07 X10*3/uL (0.00-0.03); Imm Gran Pct Auto 0.8 % (0.0-0.4); Lymphocytes Absolute Auto 2.8 X10*3/uL (1.2-4.9); Lymphocytes Percent Auto 30.2 % (20-40); Mean Corpuscular HGB Conc 34.3 g/dl (31.0-36.0); Mean Corpuscular Hemoglobin 29.1 pg (27.0-33.0); Mean Corpuscular Volume 84.6 fL (80.0-98.0); Mean Platelet Volume 9.5 fL (9.4-12.4); Monocytes Absolute Auto 1.1 X10*3/uL (0.1-1.2); Monocytes Percent Auto 11.8 % (2-11); Neutrophils Absolute Auto 4.3 x10*3/uL (2.0-8.3); Neutrophils Percent Auto 47.1 % (45-73); Platelet Count 178 X10*3/uL (160-400); Red Blood Count 3.58 X10*6/uL (4.60-5.80); Red Cell Distribution Width 13.2 % (11.0-16.0); White Blood Count 9.2 X10*3/uL (4.8-10.8)
[2022-12-08 22:51] LABS: Alanine Aminotransferase 11 U/L (0-40); Albumin Level 3.3 g/dL (3.5-5.0); Alkaline Phosphatase 50 U/L (39-117); Anion Gap 13 (12-20); Aspartate Amino Transferase 19 U/L (5-37); Bilirubin Total 0.2 mg/dL (0.0-1.0); Blood Urea Nitrogen 15 mg/dL (9-16); Calcium 8.6 mg/dL (8.4-10.2); Carbon Dioxide 22 mmol/L (22-29); Chloride 93 mmol/L (96-108); Creatinine Clr Calc Pharmacy 66.4; Estimated Glomerular Filt Rate > 60; Glucose Random 170 mg/dL (60-115); Potassium 4.4 mmol/L (3.3-5.1); Sodium 124 mmol/L (135-145); Total Protein 6.9 g/dL (6.5-8.0)
[2022-12-08 22:55] LABS: Troponin-I High Sensitivity 3.9 ng/L (<3.5-35.0)
--- NOTE | 2022-12-08 23:02 | ED_ITS ---
HPI - Chest Pain General Chief Complaint: Chest Pain Stated Complaint: Burning CP for 4 days Time Seen by Provider: 12/08/22 22:15 History of Present Illness HPI narrative: Patient is a 67-year-old male with a history of SIADH, smoking, pneumonia, diabetes, hyperlipidemia, coronary artery disease, COPD. She currently lives in a shelter. Presents today with having chest pain. The chest pain is mid chest been fairly constant. Not associated with any diaphoresis. Patient is from shelter. Was in the hospital for something similar back in October. No nausea no vomiting. Patient is very sleepy is unable to give detailed history Related Data Home Medications Medication Instructions Recorded Confirmed benztropine 2 mg tablet 2 mg PO BID 11/22/20 10/30/22 divalproex 500 mg tablet,extended 1,500 mg PO BEDTIME 07/16/21 10/30/22 release 24 hr olanzapine 10 mg tablet 10 mg PO BID 07/16/21 10/30/22 fluphenazine HCl 5 mg tablet 5 mg PO BID 11/26/21 10/30/22 gabapentin 300 mg capsule 300 mg PO TID 11/26/21 10/30/22 omeprazole 20 mg capsule,delayed 20 mg PO BID 08/18/22 10/30/22 release propranolol 20 mg tablet 1 tab PO BEDTIME 08/18/22 10/30/22 Previous Rx's Medication Instructions Recorded blood-glucose meter (FreeStyle #1 ea 05/24/21 Lite Meter kit) lisinopril 10 1 tab PO DAILY 30 days #30 tabs 07/11/22 mg-hydrochlorothiazide 12.5 mg tablet amlodipine 10 mg tablet 10 mg PO DAILY 90 days #90 tabs 07/30/22 dulaglutide 0.75 mg/0.5 mL 0.75 mg (0.5 mL) subcut FR@0900 #2 09/05/22 subcutaneous pen injector mL (Trulicity) insulin degludec 100 unit/mL (3 10 unit (0.1 mL) subcut DAILY #15 09/05/22 mL) subcutaneous pen (Tresiba mL FlexTouch U-100 insulin) magnesium hydroxide 400 mg/5 mL 5 ml PO BEDTIME PRN for severe 09/05/22 oral suspension (Milk of Magnesia) constipation only #355 mL atorvastatin 10 mg tablet 10 mg PO DAILY #30 tabs 09/23/22 blood sugar diagnostic (FreeStyle #100 ea 09/23/22 Lite Strips) aspirin 81 mg tablet,delayed 81 mg PO DAILY #90 tabs 10/08/22 release (Adult Low Dose Aspirin) azithromycin 500 mg tablet 500 mg PO DAILY 4 days #4 tabs 10/28/22 cefuroxime axetil 500 mg tablet 500 mg PO BID #8 tabs 10/28/22 pen needle, diabetic 31 gauge x #100 ea 11/08/22/ (BD Ultra-Fine Mini Pen Needle) albuterol sulfate 90 mcg/actuation 2 inh inhalation Q4-6H PRN 11/14/22 breath activated powder inhaler shortness of breath or wheezing #1 ea acetaminophen 650 mg 650 mg PO Q6H PRN pain 30 days 11/19/22 tablet,extended release (Tylenol 8 #120 tabs Hour) umeclidinium 62.5 mcg/actuation 1 inh PO DAILY #30 ea 11/25/22 blister powder for inhalation (Incruse Ellipta) docusate sodium 100 mg capsule 100 mg PO DAILY PRN constipation 12/05/22 #30 caps sennosides 8.6 mg tablet 17.2 mg PO DAILY PRN constipation 12/05/22 #60 tabs Allergies Allergy/AdvReac Type Severity Reaction Status Date / Time No Known Allergies Allergy Mild NOT Verified 10/30/22 11:21 APPLICABLE Review of Systems Review of Systems: Positive chest pain Patient refused to answer specific review system PMFSH Past Medical History Attestation statement: The following information was validated with the patient. Medical History Centrilobular emphysema Chronic bronchitis COPD (chronic obstructive pulmonary disease) Essential hypertension Hyperlipidemia LDL goal <70 Multiple pulmonary nodules Schizophrenia Smoker Type 2 diabetes mellitus with diabetic polyneuropathy Family History Family History Father Prostate cancer Diabetes Mother Diabetes Hypertension CVD (cardiovascular disease) Social History Social History Household Members: Other Housing: Other Housing Other:: half-way Do you presently have visiting nurse or other home services: Yes Unable to assess alcohol history related to: Refusing to respond Alcohol intake: current Alcohol intake frequency: does not drink Patient Tobacco Use Status: Current everyday Tobacco user Tobacco use type: Cigarette Cigarette Packs Per Day: 1 Cigarettes Per Day: 20.0 Years Smoked: 40 Advance Directives: Yes Advance Directives on File: Yes Advance Directives Date on File: 10/25/22 service: No Current occupational status: disabled Physical Exam Vital Signs: Vital Signs: Last Vital Signs Temp 97.9 F 12/08/22 22:14 Pulse 71 12/09/22 02:10 Resp 18 12/09/22 02:10 BP 113/7 L 12/09/22 02:10 Pulse Ox 91 L 12/08/22 23:09 O2 Del Method Room Air 12/09/22 02:10 BMI result Body Mass Index 30.7 Appearance: Alert. Oriented X3. No acute distress. Eyes: Pupils equal, round and reactive to light. ENT: Pharynx normal. Neck: Normal inspection. Neck supple. No lymph nodes noted. No crepitus CVS: Normal heart rate and rhythm. Pulses normal. Normal S1 and S2 Respiratory: No respiratory distress. Breath sounds normal. No Wheezing. No rales Abdomen: Soft and nontender. No rigidity. No distention. good BS x4 Skin: Skin warm and dry. Normal skin color. Normal skin turgor. Extremities: No lower extremity edema. Neurovascular intact to all extremities. No Lacerations. No Rash Neuro: Oriented X 3. No motor deficit. No sensory deficit. Moving all extermities. No slurred speech Medical Decision Making Medical Decision Making MDM Narrative: Patient has nonspecific chest pain. Two sets of cardiac enzymes are negative. Pain less likely secondary to ACS as it is atypical in nature. Chest x-ray was negative for pneumonia no pneumothorax. Patient also has low sodium of 124. Most of the sodium is actually chronic. Patient's sodiums been running between 120 to 129. Patient case discussed with the hospitalist team. Will admit for monitoring. Previously patient had SIADH causing his hyponatremia. Differential Diagnosis Differential Diagnoses: The differential diagnosis associated with the pr esentation includes Low-sodium, chest pain, ACS, pneumonia, pneumothorax Consult Healthcare Provider Management of the patient was discussed with: Hospitalist Lab Data [facility] Lab Attestation statement: I reviewed the patient's lab results. 12/08/22 10:07 12/08/22 22:21 Labs: Lab Results 12/08/22 12/08/22 12/08/22 Range/Units 10:07 22:21 22:21 WBC 9.2 (4.8-10.8) X10*3/uL RBC 3.58 L (4.60-5.80) X10*6/uL Hgb 10.4 L (14.0-18.0) g/dl Hct 30.3 L (42.0-52.0) % MCV 84.6 (80.0-98.0) fL MCH 29.1 (27.0-33.0) pg MCHC 34.3 (31.0-36.0) g/dl RDW 13.2 (11.0-16.0) % Plt Count 178 (160-400) X10*3/uL MPV 9.5 (9.4-12.4) fL Immature Gran % (Auto) 0.8 H (0.0-0.4) % Neut % (Auto) 47.1 (45-73) % Lymph % (Auto) 30.2 (20-40) % [place] % (Auto) 11.8 H (2-11) % Eos % (Auto) 9.7 H (0-4) % Baso % (Auto) 0.4 (0-2) % Lymph # (Auto) 2.8 (1.2-4.9) X10*3/uL [place] # (Auto) 1.1 (0.1-1.2) X10*3/uL Eos # (Auto) 0.9 H (0.0-0.4) X10*3/uL Baso # (Auto) 0.0 (0.0-0.2) X10*3/uL Abs Immat Gran (auto) 0.07 H (0.00-0.03) X10*3/uL Absolute Neuts (auto) 4.3 (2.0-8.3) x10*3/uL Absolute Nucleated RBC 0.000 (0.0-0.012) X10*3/uL Nucleated RBC % (auto) 0.0 (0.0-0.2) /100WBC Sodium 124 L (135-145) mmol/L Potassium 4.4 (3.3-5.1) mmol/L Chloride 93 L (96-108) mmol/L Carbon Dioxide 22 (22-29) mmol/L Anion Gap 13 (12-20) BUN 15 (9-16) mg/dL Creatinine 1.11 (0.5-1.4) mg/dL Estim Creat Clear Calc 66.4 Estimated GFR > 60 Random Glucose 170 H (60-115) mg/dL Calcium 8.6 (8.4-10.2) mg/dL Total Bilirubin 0.2 (0.0-1.0) mg/dL AST 19 (5-37) U/L ALT 11 (0-40) U/L Alkaline Phosphatase 50 (39-117) U/L Troponin I High Sens 3.9 (<3.5-35.0) ng/L Total Protein 6.9 (6.5-8.0) g/dL Albumin 3.3 L (3.5-5.0) g/dL 12/09/22 Range/Units 03:21 WBC (4.8-10.8) X10*3/uL RBC (4.60-5.80) X10*6/uL Hgb (14.0-18.0) g/dl Hct (42.0-52.0) % MCV (80.0-98.0) fL MCH (27.0-33.0) pg MCHC (31.0-36.0) g/dl RDW (11.0-16.0) % Plt Count (160-400) X10*3/uL MPV (9.4-12.4) fL Immature Gran % (Auto) (0.0-0.4) % Neut % (Auto) (45-73) % Lymph % (Auto) (20-40) % [place] % (Auto) (2-11) % Eos % (Auto) (0-4) % Baso % (Auto) (0-2) % Lymph # (Auto) (1.2-4.9) X10*3/uL [place] # (Auto) (0.1-1.2) X10*3/uL Eos # (Auto) (0.0-0.4) X10*3/uL Baso # (Auto) (0.0-0.2) X10*3/uL Abs Immat Gran (auto) (0.00-0.03) X10*3/uL Absolute Neuts (auto) (2.0-8.3) x10*3/uL Absolute Nucleated RBC (0.0-0.012) X10*3/uL Nucleated RBC % (auto) (0.0-0.2) /100WBC Sodium (135-145) mmol/L Potassium (3.3-5.1) mmol/L Chloride (96-108) mmol/L Carbon Dioxide (22-29) mmol/L Anion Gap (12-20) BUN (9-16) mg/dL Creatinine (0.5-1.4) mg/dL Estim Creat Clear Calc Estimated GFR Random Glucose (60-115) mg/dL Calcium (8.4-10.2) mg/dL Total Bilirubin (0.0-1.0) mg/dL AST (5-37) U/L ALT (0-40) U/L Alkaline Phosphatase (39-117) U/L Troponin I High Sens 4.9 (<3.5-35.0) ng/L Total Protein (6.5-8.0) g/dL Albumin (3.5-5.0) g/dL Discharge Plan Discharge Clinical Impression: Acute hyponatremia Patient Disposition: Admitted As Inpatient Prescriptions: No Action (DME) blood-glucose meter [FreeStyle Lite Meter] Kit See Rx Instructions .ROUTE .MEDSUPPLY Qty: 1 0RF Rx Instructions: As directed lisinopril-hydrochlorothiazide 10-12.5 mg tablet 1 tab PO DAILY 30 Days Qty: 30 3RF amlodipine 10 mg tablet 10 mg PO DAILY 90 Days Qty: 90 1RF Trulicity 0.75 mg/0.5 mL pen injector 0.75 mg subcut FR@0900 Qty: 2 0RF insulin degludec [Tresiba FlexTouch U-100] 100 unit/mL (3 mL) insulin pen 10 unit subcut DAILY Qty: 15 1RF magnesium hydroxide [Milk of Magnesia] 400 mg/5 mL suspension 5 ml PO BEDTIME PRN (Reason: for severe constipation only) Qty: 355 0RF atorvastatin 10 mg tablet 10 mg PO DAILY Qty: 30 3RF (DME) FreeStyle Lite Strips Strip See Rx Instructions .Route Qty: 100 6RF Rx Instructions: Use to check blood sugar three times daily aspirin [Adult Low Dose Aspirin] 81 mg tablet,delayed release (DR/EC) 81 mg PO DAILY Qty: 90 0RF (DME) pen needle, diabetic [BD Ultra-Fine Mini Pen Needle] 31 gauge x 3/16 needle See Rx Instructions subcut TID Qty: 100 1RF Rx Instructions: As directed to inject insulin daily albuterol sulfate 90 mcg/actuation aerosol powdr breath activated 2 inh inhalation Q4-6H PRN (Reason: shortness of breath or wheezing) Qty: 1 2RF acetaminophen [Tylenol 8 Hour] 650 mg tablet extended release 650 mg PO Q6H PRN (Reason: pain) 30 Days Qty: 120 0RF Incruse Ellipta 62.5 mcg/actuation blister with device 1 inh PO DAILY Qty: 30 2RF docusate sodium 100 mg capsule 100 mg PO DAILY PRN (Reason: constipation) Qty: 30 6RF sennosides 8.6 mg tablet 17.2 mg PO DAILY PRN (Reason: constipation) Qty: 60 2RF propranolol 20 mg tablet 1 tab PO BEDTIME omeprazole 20 mg capsule,delayed release(DR/EC) 20 mg PO BID cefuroxime axetil 500 mg tablet 500 mg PO BID Qty: 8 0RF azithromycin 500 mg tablet 500 mg PO DAILY 4 Days Qty: 4 0RF Rx Instructions: start on day 2 of therapy benztropine 2 mg tablet 2 mg PO BID gabapentin 300 mg capsule 300 mg PO TID fluphenazine HCl 5 mg tablet 5 mg PO BID olanzapine 10 mg tablet 10 mg PO BID divalproex 500 mg tablet extended release 24 hr 1,500 mg PO BEDTIME
[2022-12-08 23:09] VITALS: BP 113/61; PULSE 71; RESP 16; O2SAT 91
[2022-12-09 02:10] VITALS: BP 113/7; PULSE 71; RESP 18
[2022-12-09 03:45] LABS: Troponin-I High Sensitivity 4.9 ng/L (<3.5-35.0)
[2022-12-09 05:33] VITALS: BP 140/77; PULSE 80; RESP 15; TEMP 36.7; O2SAT 93
--- NOTE | 2022-12-09 07:34 | ED.CHESTPAIN ---
HPI - Chest Pain General Chief Complaint: Chest Pain Stated Complaint: Burning CP for 4 days Time Seen by Provider: 12/08/22 22:15 Related Data Home Medications Medication Instructions Recorded Confirmed benztropine 2 mg tablet 2 mg PO BID 11/22/20 10/30/22 divalproex 500 mg tablet,extended 1,500 mg PO BEDTIME 07/16/21 10/30/22 release 24 hr olanzapine 10 mg tablet 10 mg PO BID 07/16/21 10/30/22 fluphenazine HCl 5 mg tablet 5 mg PO BID 11/26/21 10/30/22 gabapentin 300 mg capsule 300 mg PO TID 11/26/21 10/30/22 omeprazole 20 mg capsule,delayed 20 mg PO BID 08/18/22 10/30/22 release propranolol 20 mg tablet 1 tab PO BEDTIME 08/18/22 10/30/22 Previous Rx's Medication Instructions Recorded blood-glucose meter (FreeStyle #1 ea 05/24/21 Lite Meter kit) lisinopril 10 1 tab PO DAILY 30 days #30 tabs 07/11/22 mg-hydrochlorothiazide 12.5 mg tablet amlodipine 10 mg tablet 10 mg PO DAILY 90 days #90 tabs 07/30/22 dulaglutide 0.75 mg/0.5 mL 0.75 mg (0.5 mL) subcut FR@0900 #2 09/05/22 subcutaneous pen injector mL (Trulicity) insulin degludec 100 unit/mL (3 10 unit (0.1 mL) subcut DAILY #15 09/05/22 mL) subcutaneous pen (Tresiba mL FlexTouch U-100 insulin) magnesium hydroxide 400 mg/5 mL 5 ml PO BEDTIME PRN for severe 09/05/22 oral suspension (Milk of Magnesia) constipation only #355 mL atorvastatin 10 mg tablet 10 mg PO DAILY #30 tabs 09/23/22 blood sugar diagnostic (FreeStyle #100 ea 09/23/22 Lite Strips) aspirin 81 mg tablet,delayed 81 mg PO DAILY #90 tabs 10/08/22 release (Adult Low Dose Aspirin) azithromycin 500 mg tablet 500 mg PO DAILY 4 days #4 tabs 10/28/22 cefuroxime axetil 500 mg tablet 500 mg PO BID #8 tabs 10/28/22 pen needle, diabetic 31 gauge x #100 ea 11/08/22 (BD Ultra-Fine Mini Pen Needle) albuterol sulfate 90 mcg/actuation 2 inh inhalation Q4-6H PRN 11/14/22 breath activated powder inhaler shortness of breath or wheezing #1 ea acetaminophen 650 mg 650 mg PO Q6H PRN pain 30 days 11/19/22 tablet,extended release (Tylenol 8 #120 tabs Hour) umeclidinium 62.5 mcg/actuation 1 inh PO DAILY #30 ea 11/25/22 blister powder for inhalation (Incruse Ellipta) docusate sodium 100 mg capsule 100 mg PO DAILY PRN constipation 12/05/22 #30 caps sennosides 8.6 mg tablet 17.2 mg PO DAILY PRN constipation 12/05/22 #60 tabs Allergies Allergy/AdvReac Type Severity Reaction Status Date / Time No Known Allergies Allergy Mild NOT Verified 10/30/22 11:21 APPLICABLE [facility] Past Medical History Medical History Centrilobular emphysema Chronic bronchitis COPD (chronic obstructive pulmonary disease) Essential hypertension Hyperlipidemia LDL goal <70 Multiple pulmonary nodules Schizophrenia Smoker Type 2 diabetes mellitus with diabetic polyneuropathy Family History Family History Father Prostate cancer Diabetes Mother Diabetes Hypertension CVD (cardiovascular disease) Social History Social History Household Members: Other Housing: Other Housing Other:: nursing home Do you presently have visiting nurse or other home services: Yes Unable to assess alcohol history related to: Refusing to respond Alcohol intake: current Alcohol intake frequency: does not drink Patient Tobacco Use Status: Current everyday Tobacco user Tobacco use type: Cigarette Cigarette Packs Per Day: 1 Cigarettes Per Day: 20.0 Years Smoked: 40 Advance Directives: Yes Advance Directives on File: Yes Advance Directives Date on File: 10/25/22 service: No Current occupational status: disabled Physical Exam Vital Signs: Vital Signs: Last Vital Signs Temp 98.1 F 12/09/22 05:33 Pulse 80 12/09/22 05:33 Resp 15 12/09/22 05:33 BP 140/77 H 12/09/22 05:33 Pulse Ox 93 12/09/22 05:33 O2 Del Method Room Air 12/09/22 05:33 BMI result Body Mass Index 30.7 Medical Decision Making Medical Decision Making MDM Narrative: Patient had nonspecific chest pain. However patient is more mature. Has a history of SIADH his sodium is 124. Explained to the patient the need to stay. Patient refused. He is now awake alert oriented has no more chest pain. He understood having low sodium can be detrimental to his life. He understood his chest pain could be from her idea sources. Patient states understanding. Is leaving against medical advice. Lab Data 12/08/22 10:07 12/08/22 22:21 Labs: Lab Results 12/08/22 12/08/22 12/08/22 Range/Units 10:07 22:21 22:21 WBC 9.2 (4.8-10.8) X10*3/uL RBC 3.58 L (4.60-5.80) X10*6/uL Hgb 10.4 L (14.0-18.0) g/dl Hct 30.3 L (42.0-52.0) % MCV 84.6 (80.0-98.0) fL MCH 29.1 (27.0-33.0) pg MCHC 34.3 (31.0-36.0) g/dl RDW 13.2 (11.0-16.0) % Plt Count 178 (160-400) X10*3/uL MPV 9.5 (9.4-12.4) fL Immature Gran % (Auto) 0.8 H (0.0-0.4) % Neut % (Auto) 47.1 (45-73) % Lymph % (Auto) 30.2 (20-40) % [place] % (Auto) 11.8 H (2-11) % Eos % (Auto) 9.7 H (0-4) % Baso % (Auto) 0.4 (0-2) % Lymph # (Auto) 2.8 (1.2-4.9) X10*3/uL [place] # (Auto) 1.1 (0.1-1.2) X10*3/uL Eos # (Auto) 0.9 H (0.0-0.4) X10*3/uL Baso # (Auto) 0.0 (0.0-0.2) X10*3/uL Abs Immat Gran (auto) 0.07 H (0.00-0.03) X10*3/uL Absolute Neuts (auto) 4.3 (2.0-8.3) x10*3/uL Absolute Nucleated RBC 0.000 (0.0-0.012) X10*3/uL Nucleated RBC % (auto) 0.0 (0.0-0.2) /100WBC Sodium 124 L (135-145) mmol/L Potassium 4.4 (3.3-5.1) mmol/L Chloride 93 L (96-108) mmol/L Carbon Dioxide 22 (22-29) mmol/L Anion Gap 13 (12-20) BUN 15 (9-16) mg/dL Creatinine 1.11 (0.5-1.4) mg/dL Estim Creat Clear Calc 66.4 Estimated GFR > 60 Random Glucose 170 H (60-115) mg/dL Calcium 8.6 (8.4-10.2) mg/dL Total Bilirubin 0.2 (0.0-1.0) mg/dL AST 19 (5-37) U/L ALT 11 (0-40) U/L Alkaline Phosphatase 50 (39-117) U/L Troponin I High Sens 3.9 (<3.5-35.0) ng/L Total Protein 6.9 (6.5-8.0) g/dL Albumin 3.3 L (3.5-5.0) g/dL 12/09/22 Range/Units 03:21 WBC (4.8-10.8) X10*3/uL RBC (4.60-5.80) X10*6/uL Hgb (14.0-18.0) g/dl Hct (42.0-52.0) % MCV (80.0-98.0) fL MCH (27.0-33.0) pg MCHC (31.0-36.0) g/dl RDW (11.0-16.0) % Plt Count (160-400) X10*3/uL MPV (9.4-12.4) fL Immature Gran % (Auto) (0.0-0.4) % Neut % (Auto) (45-73) % Lymph % (Auto) (20-40) % [place] % (Auto) (2-11) % Eos % (Auto) (0-4) % Baso % (Auto) (0-2) % Lymph # (Auto) (1.2-4.9) X10*3/uL [place] # (Auto) (0.1-1.2) X10*3/uL Eos # (Auto) (0.0-0.4) X10*3/uL Baso # (Auto) (0.0-0.2) X10*3/uL Abs Immat Gran (auto) (0.00-0.03) X10*3/uL Absolute Neuts (auto) (2.0-8.3) x10*3/uL Absolute Nucleated RBC (0.0-0.012) X10*3/uL Nucleated RBC % (auto) (0.0-0.2) /100WBC Sodium (135-145) mmol/L Potassium (3.3-5.1) mmol/L Chloride (96-108) mmol/L Carbon Dioxide (22-29) mmol/L Anion Gap (12-20) BUN (9-16) mg/dL Creatinine (0.5-1.4) mg/dL Estim Creat Clear Calc Estimated GFR Random Glucose (60-115) mg/dL Calcium (8.4-10.2) mg/dL Total Bilirubin (0.0-1.0) mg/dL AST (5-37) U/L ALT (0-40) U/L Alkaline Phosphatase (39-117) U/L Troponin I High Sens 4.9 (<3.5-35.0) ng/L Total Protein (6.5-8.0) g/dL Albumin (3.5-5.0) g/dL Discharge Plan Discharge Clinical Impression: Acute hyponatremia Patient Disposition: Left Against Medical Advice Instructions: Hyponatremia (ED), Chest Pain (ED) Prescriptions: No Action (DME) blood-glucose meter [FreeStyle Lite Meter] Kit See Rx Instructions .ROUTE .MEDSUPPLY Qty: 1 0RF Rx Instructions: As directed lisinopril-hydrochlorothiazide 10-12.5 mg tablet 1 tab PO DAILY 30 Days Qty: 30 3RF amlodipine 10 mg tablet 10 mg PO DAILY 90 Days Qty: 90 1RF Trulicity 0.75 mg/0.5 mL pen injector 0.75 mg subcut FR@0900 Qty: 2 0RF insulin degludec [Tresiba FlexTouch U-100] 100 unit/mL (3 mL) insulin pen 10 unit subcut DAILY Qty: 15 1RF magnesium hydroxide [Milk of Magnesia] 400 mg/5 mL suspension 5 ml PO BEDTIME PRN (Reason: for severe constipation only) Qty: 355 0RF atorvastatin 10 mg tablet 10 mg PO DAILY Qty: 30 3RF (DME) FreeStyle Lite Strips Strip See Rx Instructions .Route Qty: 100 6RF Rx Instructions: Use to check blood sugar three times daily aspirin [Adult Low Dose Aspirin] 81 mg tablet,delayed release (DR/EC) 81 mg PO DAILY Qty: 90 0RF (DME) pen needle, diabetic [BD Ultra-Fine Mini Pen Needle] 31 gauge x 3/16 needle See Rx Instructions subcut TID Qty: 100 1RF Rx Instructions: As directed to inject insulin daily albuterol sulfate 90 mcg/actuation aerosol powdr breath activated 2 inh inhalation Q4-6H PRN (Reason: shortness of breath or wheezing) Qty: 1 2RF acetaminophen [Tylenol 8 Hour] 650 mg tablet extended release 650 mg PO Q6H PRN (Reason: pain) 30 Days Qty: 120 0RF Incruse Ellipta 62.5 mcg/actuation blister with device 1 inh PO DAILY Qty: 30 2RF docusate sodium 100 mg capsule 100 mg PO DAILY PRN (Reason: constipation) Qty: 30 6RF sennosides 8.6 mg tablet 17.2 mg PO DAILY PRN (Reason: constipation) Qty: 60 2RF propranolol 20 mg tablet 1 tab PO BEDTIME omeprazole 20 mg capsule,delayed release(DR/EC) 20 mg PO BID cefuroxime axetil 500 mg tablet 500 mg PO BID Qty: 8 0RF azithromycin 500 mg tablet 500 mg PO DAILY 4 Days Qty: 4 0RF Rx Instructions: start on day 2 of therapy benztropine 2 mg tablet 2 mg PO BID gabapentin 300 mg capsule 300 mg PO TID fluphenazine HCl 5 mg tablet 5 mg PO BID olanzapine 10 mg tablet 10 mg PO BID divalproex 500 mg tablet extended release 24 hr 1,500 mg PO BEDTIME Referrals: Physician,Unknown J [Primary Care Provider] - 2 days Stand Alone Forms: Against Medical Advice
== END 2022-12-09 08:04 | disposition left against medical advice (07) ==
PROVIDERS: Emergency Provider Emergency Medicine Emergency Medical Services; PCP Nurse Practitioner Family
DX: R07.89 Other chest pain (principal); E87.1 Hypo-osmolality and hyponatremia; F17.210 Nicotine dependence, cigarettes, uncomplicated; Z71.6 Tobacco abuse counseling; Z79.899 Other long term (current) drug therapy
CPT/HCPCS: 36415; 71045; 80053; 84484; 85025; 93005; 99283

== ENCOUNTER 2023-01-14 18:25 | Emergency (ER) | payer MEDICARE, MEDICAID, SELFPAY ==
--- NOTE | ~2023-01-14 | XR_ITS ---
EXAMINATION: XR CHEST CLINICAL INFORMATION: Chest pain COMPARISON: Previous chest x-ray December 2022 TECHNIQUE: 2 views of the chest were obtained. FINDINGS: The cardiac and mediastinal contours are stable. The lungs are clear. No pleural effusion or pneumothorax. Question old trauma to the right distal clavicle. XR/XR chest 2V IMPRESSION: No evidence for acute disease in the chest.
--- NOTE | 2023-01-14 18:28 | ECG_ITS ---
Test Reason : CHEST PAIN Blood Pressure : / mmHG Vent. Rate : 082 BPM Atrial Rate : 082 BPM P-R Int : 164 ms QRS Dur : 098 ms QT Int : 362 ms P-R-T Axes : 062 017 050 degrees QTc Int : 422 ms Normal sinus rhythm Normal ECG When compared with ECG of 08-DEC-2022 22:12, No significant change was found Referred By: Generic ED Physician Electronically Signed By:LYNDSAY GAMING MD
[2023-01-14 18:49] VITALS: BP 120/70; PULSE 80; O2SAT 99
[2023-01-14 18:53] VITALS: BP 120/64; PULSE 79; RESP 20; TEMP 36.7; O2SAT 94
--- NOTE | 2023-01-14 18:54 | MHC.EDTECH ---
PATIENT ARRIVED VIA EMS ,VITALS SIGN TAKEN ,PT WAS HOOKED UP TO SWITCH REPAIRER ,EKG TAKEN AND WAS READ BY PROVIDER ,PT WAS CHANGE INTO HOSPITAL ATTIRE ,PT RESTING WAITING TO SEE PROVIDER .
[2023-01-14 19:00] VITALS: BMI 27.4
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
[2023-01-14] MEDS: 0.9 % Sodium Chloride 1,000 ML 999 ML IV (19:23)
[2023-01-14 19:27] LABS: MANUAL DIFF FLAG NO
[2023-01-14 19:31] LABS: Basophils Absolute Auto 0.1 X10*3/uL (0.0-0.2); Basophils Percent Auto 0.5 % (0-2); Eosinophils Absolute Auto 0.4 X10*3/uL (0.0-0.4); Hematocrit 29.3 % (42.0-52.0); Imm Gran Pct Auto 1.1 % (0.0-0.4); Lymphocytes Absolute Auto 1.9 X10*3/uL (1.2-4.9); Lymphocytes Percent Auto 20.1 % (20-40); Mean Corpuscular HGB Conc 34.1 g/dl (31.0-36.0); Mean Corpuscular Hemoglobin 29.2 pg (27.0-33.0); Mean Corpuscular Volume 85.7 fL (80.0-98.0); Mean Platelet Volume 9.2 fL (9.4-12.4); Monocytes Absolute Auto 1.2 X10*3/uL (0.1-1.2); Monocytes Percent Auto 13.4 % (2-11); Neutrophils Absolute Auto 5.6 x10*3/uL (2.0-8.3); Neutrophils Percent Auto 60.9 % (45-73); Platelet Count 209 X10*3/uL (160-400); Red Blood Count 3.42 X10*6/uL (4.60-5.80); Red Cell Distribution Width 13.2 % (11.0-16.0); White Blood Count 9.2 X10*3/uL (4.8-10.8)
[2023-01-14] MEDS: Albuterol Sulfate (0.083%) 2.5 MG/3 ML VIAL.NEB 5 MG INHALE (19:33)
[2023-01-14] MEDS: Albuterol/Iprat 2.5/0.5MG 3 ML AMPUL.NEB INHALE (19:33)
[2023-01-14 19:35] VITALS: PULSE 76; RESP 21; O2SAT 96
[2023-01-14 19:50] LABS: Alanine Aminotransferase 12 U/L (0-40); Albumin Level 3.3 g/dL (3.5-5.0); Alkaline Phosphatase 54 U/L (39-117); Anion Gap 12 (12-20); Aspartate Amino Transferase 16 U/L (5-37); Bilirubin Direct < 0.1 mg/dL (0.0-0.5); Bilirubin Total 0.3 mg/dL (0.0-1.0); Blood Urea Nitrogen 17 mg/dL (9-16); Calcium 8.8 mg/dL (8.4-10.2); Carbon Dioxide 25 mmol/L (22-29); Chloride 92 mmol/L (96-108); Estimated Glomerular Filt Rate > 60; Glucose Random 195 mg/dL (60-115); Lipase 27 U/L (8-78); Potassium 3.9 mmol/L (3.3-5.1); Sodium 125 mmol/L (135-145); Total Protein 7.4 g/dL (6.5-8.0)
[2023-01-14 19:52] VITALS: BP 133/72; PULSE 75; RESP 16; TEMP 36.7; O2SAT 98
[2023-01-14 19:53] LABS: Troponin-I High Sensitivity 4.6 ng/L (<3.5-35.0)
[2023-01-14] MEDS: predniSONE 20 MG TABLET 40 MG PO (20:09)
[2023-01-14 21:30] VITALS: BP 137/79; PULSE 81; RESP 20; TEMP 36.6; O2SAT 97
--- NOTE | 2023-01-14 21:35 | MHC.EDTECH ---
PATIENT RANG ,SAID HE WAS HUNGRY ,PT ATE TUNA AND PBJ SANDWICH AND DRANK A CAN OF JAYCEE ALIYA .
== END 2023-01-14 22:22 | disposition home or self-care (01) ==
PROVIDERS: Emergency Provider Emergency Medicine
DX: R07.89 Other chest pain (principal); R06.02 Shortness of breath; E87.1 Hypo-osmolality and hyponatremia; Z79.899 Other long term (current) drug therapy
CPT/HCPCS: 36415; 71046; 80048; 80076; 83690; 84484; 85025; 93005; 94640; 96360; 99284; 99285

== ENCOUNTER → 2023-02-06 11:16 | Outpatient (BNVA) | payer MEDICARE, MEDICAID, SELFPAY | PROVIDERS: Visit Provider Hospitalist | DX: J43.2 Centrilobular emphysema (principal); J41.1 Mucopurulent chronic bronchitis; R91.8 Other nonspecific abnormal finding of lung field; F17.210 Nicotine dependence, cigarettes, uncomplicated | CPT/HCPCS: 94640; 99202 ==

== ENCOUNTER 2023-02-14 19:44 | Inpatient (IN) | payer MEDICARE, MEDICAID, SELFPAY ==
--- NOTE | ~2023-02-14 | XR_ITS ---
EXAMINATION: XR CHEST CLINICAL INFORMATION: Reason for Exam cp COMPARISON: Chest radiograph 01/14/2023 TECHNIQUE: One view of the chest FINDINGS: Lines and tubes: None. Few patchy left basilar airspace opacities which may reflect aspiration or infection. New small left pleural effusion. No pneumothorax. Unchanged cardiomediastinal silhouette. Remote fracture deformity involving the right distal clavicle. XR/XR chest 1V IMPRESSION: 1. Few patchy left basilar airspace opacities which may reflect aspiration or infection. Recommend follow-up radiographs to ensure resolution. 2. New small left pleural effusion.
[2023-02-14 19:52] VITALS: BP 136/64; BP 160/83; PULSE 79; PULSE 93; RESP 26; TEMP 37.2; O2SAT 94; O2SAT 95; BMI 26.3
--- NOTE | 2023-02-14 19:55 | ECG_ITS ---
Test Reason : CHEST PAIN Blood Pressure : / mmHG Vent. Rate : 078 BPM Atrial Rate : 078 BPM P-R Int : 160 ms QRS Dur : 096 ms QT Int : 350 ms P-R-T Axes : 068 005 034 degrees QTc Int : 399 ms Normal sinus rhythm Normal ECG When compared with ECG of 14-JAN-2023 18:40, No significant change was found Referred By: Jen Sims Electronically Signed By:LYNDSAY GAMING MD
[2023-02-14 20:05] VITALS: BP 136/64; PULSE 79; RESP 24; TEMP 37.1; O2SAT 93
[2023-02-14 20:57] VITALS: BP 115/57; PULSE 71; RESP 20; TEMP 37.1; O2SAT 100
--- NOTE | 2023-02-14 20:58 | MHC.EDTECH ---
Vitals updated and labs were drawn and sent to lab.
[2023-02-14 21:16] LABS: MANUAL DIFF FLAG NO
[2023-02-14 21:18] LABS: Basophils Percent Auto 0.3 % (0-2); Eosinophils Absolute Auto 0.2 X10*3/uL (0.0-0.4); Eosinophils Percent Auto 1.9 % (0-4); Hematocrit 28.5 % (42.0-52.0); Hemoglobin 9.8 g/dl (14.0-18.0); Imm Gran Abs Auto 0.08 X10*3/uL (0.00-0.03); Imm Gran Pct Auto 0.9 % (0.0-0.4); Lymphocytes Absolute Auto 2.3 X10*3/uL (1.2-4.9); Lymphocytes Percent Auto 26.1 % (20-40); Mean Corpuscular HGB Conc 34.4 g/dl (31.0-36.0); Mean Corpuscular Hemoglobin 28.4 pg (27.0-33.0); Mean Corpuscular Volume 82.6 fL (80.0-98.0); Mean Platelet Volume 9.5 fL (9.4-12.4); Monocytes Absolute Auto 1.2 X10*3/uL (0.1-1.2); Monocytes Percent Auto 13.3 % (2-11); Neutrophils Absolute Auto 5.1 x10*3/uL (2.0-8.3); Neutrophils Percent Auto 57.5 % (45-73); Platelet Count 188 X10*3/uL (160-400); Red Blood Count 3.45 X10*6/uL (4.60-5.80); Red Cell Distribution Width 12.9 % (11.0-16.0); White Blood Count 8.9 X10*3/uL (4.8-10.8)
[2023-02-14 21:34] LABS: Alanine Aminotransferase 11 U/L (0-40); Albumin Level 3.5 g/dL (3.5-5.0); Alkaline Phosphatase 47 U/L (39-117); Anion Gap 13 (12-20); Aspartate Amino Transferase 10 U/L (5-37); Bilirubin Direct < 0.2 mg/dL (0.0-0.5); Bilirubin Total 0.2 mg/dL (0.0-1.0); Blood Urea Nitrogen 17 mg/dL (9-16); Carbon Dioxide 25 mmol/L (22-29); Chloride 87 mmol/L (96-108); Creatinine Clr Calc Pharmacy 51.7; Estimated Glomerular Filt Rate 50; Glucose Random 255 mg/dL (60-115); Magnesium 1.7 mg/dL (1.6-2.6); Potassium 3.7 mmol/L (3.3-5.1); Sodium 121 mmol/L (135-145); Total Protein 6.8 g/dL (6.5-8.0)
[2023-02-14 21:40] LABS: B Type Natriuretic Peptide 29 pg/mL (<100)
--- NOTE | 2023-02-14 23:33 | ED.CHESTPAIN ---
HPI - Chest Pain General Chief Complaint: Chest Pain Stated Complaint: Chest Pain Time Seen by Provider: 02/14/23 23:14 Source: patient, RN notes reviewed and old records reviewed Mode of arrival: EMS Limitations: altered mental status History of Present Illness HPI narrative: 68-year-old male past medical history significant for COPD, SIADH, hyponatremia, hypertension, hyperlipidemia, schizophrenia, type 2 diabetes presents for evaluation of chest pain. The patient reportedly stated that he has had 3-10 chest pain since this evening but unclear exactly when it started At the time of my evaluation the patient is quite somnolent and difficult to get much history He was able to tell me that he is not in any pain He was coughing during my evaluation but could not tell me when that started He was able to tell me his name and that we are at [facility] It was difficult to get any further history He right from a [facility] but did not have any paperwork with him On review of his medical history it appears that he was presenting to this ER in October of this year with a very similar presentation Related Data Home Medications Medication Instructions Recorded Confirmed benztropine 2 mg tablet 2 mg PO BID 11/22/20 10/30/22 divalproex 500 mg tablet,extended 1,500 mg PO BEDTIME 07/16/21 10/30/22 release 24 hr olanzapine 10 mg tablet 10 mg PO BID 07/16/21 10/30/22 fluphenazine HCl 5 mg tablet 5 mg PO BID 11/26/21 10/30/22 gabapentin 300 mg capsule 300 mg PO TID 11/26/21 10/30/22 propranolol 20 mg tablet 1 tab PO BEDTIME 08/18/22 10/30/22 cefuroxime axetil 500 mg tablet 500 mg PO BID 01/28/23 propranolol 10 mg tablet 10 mg PO ONCE 01/28/23 vitamin E 1,150 unit/1.25 mL oral 1,000 unit PO DAILY 01/28/23 liquid Previous Rx's Medication Instructions Recorded blood-glucose meter (FreeStyle #1 ea 05/24/21 Lite Meter kit) insulin degludec 100 unit/mL (3 10 unit (0.1 mL) subcut DAILY #15 09/05/22 mL) subcutaneous pen (Tresiba mL FlexTouch U-100 insulin) magnesium hydroxide 400 mg/5 mL 5 ml PO BEDTIME PRN for severe 09/05/22 oral suspension (Milk of Magnesia) constipation only #355 mL atorvastatin 10 mg tablet 10 mg PO DAILY #30 tabs 09/23/22 blood sugar diagnostic (FreeStyle #100 ea 09/23/22 Lite Strips) pen needle, diabetic 31 gauge x #100 ea 11/08/22 3/16 (BD Ultra-Fine Mini Pen Needle) albuterol sulfate 90 mcg/actuation 2 inh inhalation Q4-6H PRN 11/14/22 breath activated powder inhaler shortness of breath or wheezing #1 ea docusate sodium 100 mg capsule 100 mg PO DAILY PRN constipation 12/05/22 #30 caps sennosides 8.6 mg tablet 17.2 mg PO DAILY PRN constipation 12/05/22 #60 tabs lisinopril 10 1 tab PO DAILY #90 tabs 12/13/22 mg-hydrochlorothiazide 12.5 mg tablet amlodipine 10 mg tablet 10 mg PO DAILY 90 days #90 tabs 01/03/23 aspirin 81 mg tablet,delayed 81 mg PO DAILY #90 tabs 01/08/23 release (Adult Low Dose Aspirin) cholecalciferol (vitamin D3) 50 50 mcg PO DAILY #90 tabs 01/10/23 mcg (2,000 unit) tablet omeprazole 20 mg capsule,delayed 20 mg PO BID 30 days #60 caps 01/23/23 release acetaminophen 650 mg 650 mg PO Q6H PRN pain 30 days 01/30/23 tablet,extended release (Tylenol 8 #120 tabs Hour) azithromycin 250 mg tablet 250 mg PO 3XW 28 days #12 tabs 02/06/23 fluticasone fur. 100 mcg-umeclid 1 inh inhalation DAILY 30 days #60 02/06/23 62.5 mcg-vilant 25 mcg ea inhalat.powder (Trelegy Ellipta) ipratropium 0.5 mg-albuterol 3 mg 3 ml inhalation BID 30 days #180 mL 02/06/23 (2.5 mg base)/3 mL nebulization soln prednisone 20 mg tablet See Rx Instructions PO DAILY 10 02/06/23 days #15 tabs lancets 30 gauge (Ultra-Care 30 gauge miscellaneous TID 50 days 02/10/23 Lancets) #100 ea dulaglutide 0.75 mg/0.5 mL 0.75 mg (0.5 mL) subcut FR@0900 #6 02/12/23 subcutaneous pen injector mL (Trulicity) Allergies Allergy/AdvReac Type Severity Reaction Status Date / Time No Known Allergies Allergy Mild NOT Verified 02/06/23 11:12 APPLICABLE Review of Systems Constitutional: Constitutional: Denies headache(s) ENT: Denies headache(s) Cardiovascular: Cardiovascular: Denies chest pain Respiratory: Respiratory: Reports cough Gastrointestinal: Gastrointestinal: Denies abdominal pain Neurologic: Denies headache(s) PMFSH Past Medical History Medical History Centrilobular emphysema Chronic bronchitis COPD (chronic obstructive pulmonary disease) Essential hypertension Hyperlipidemia LDL goal <70 Multiple pulmonary nodules Schizophrenia Smoker Type 2 diabetes mellitus with diabetic polyneuropathy Family History Family History Father Prostate cancer Diabetes Mother Diabetes Hypertension CVD (cardiovascular disease) Social History Social History Household Members: Other Housing: Other Housing Other:: senior care Do you presently have visiting nurse or other home services: Yes Unable to assess alcohol history related to: Refusing to respond Alcohol intake: current Alcohol intake frequency: does not drink Patient Tobacco Use Status: Current everyday Tobacco user Tobacco use type: Cigarette Cigarette Packs Per Day: 1 Cigarettes Per Day: 20.0 Years Smoked: 40 Advance Directives: Yes Advance Directives on File: Yes Advance Directives Date on File: 10/25/22 service: No Current occupational status: disabled Cognitive needs: No Hearing needs: No Vision needs: No Physical Exam Vital Signs: Vital Signs: Last Vital Signs Temp 98.8 F 02/14/23 20:57 Pulse 64 02/14/23 23:57 Resp 22 H 02/14/23 23:57 BP 133/64 02/14/23 23:57 Pulse Ox 97 02/14/23 23:57 O2 Del Method Room Air 02/14/23 23:57 BMI result Body Mass Index 26.3 Const: General: comfortable, no acute distress, alert and awake Nutritional Appearance: well nourished Orientation/consciousness: patient oriented x3 HEENT: Head: Yes normocephalic and Yes atraumatic Eyes: Eyelids: Yes eyelids normal Conjunctivae: conjunctivae normal Sclerae: sclerae normal Corneas: corneas normal Pupils: Equal, round and reactive pupils present EOM: EOMs intact bilaterally Neck: Neck: Yes full ROM Resp: Effort & Inspection: normal respiratory effort, able to speak in complete sentences and not labored GI: Inspection: No distended Palpation (GI): Soft to palpation, not firm, nontender, no guarding and not rigid Skin: General skin exam: no rashes or lesions noted and elasticity normal Neuro: General: patient oriented x3 Cranial nerves: Yes Equal, round and reactive pupils present Medications Administered Generic Name Dose Route Start Last Admin Trade Name Freq PRN Reason Stop Dose Admin Sodium Chloride 1,000 mls @ 250 mls/hr 02/14/23 23:45 02/14/23 23:59 Ns IVCONT 02/15/23 03:44 250 mls/hr .Q4H DESHAUN Administration Discontinued Medications Generic Name Dose Route Start Last Admin Trade Name Freq PRN Reason Stop Dose Admin Ceftriaxone Sodium 1 gm/ 50 mls @ 100 mls/hr 02/14/23 23:32 02/14/23 23:58 Sodium Chloride IV 02/15/23 00:01 100 mls/hr ONCE ONE Administration Medical Decision Making Medical Decision Making [facility] Narrative: 68-year-old male presents for evaluation of chest pain. He does not give me much history and exam. He appeared to have a similar presentation with atypical pneumonia. His chest x-ray does show questionable aspiration pneumonia though he has no white count or fever. He does have a cough. Pneumonia could be the cause of the patient's chest pain. His sodium is chronically low with the baseline abuse around 128. The patient is the setting of 121 today. We discussed the hospitalist for admission of acute on chronic hyponatremia and aspiration pneumonitis Differential Diagnosis Aspiration pneumonitis Pneumonia Hyponatremia SIADH Sepsis Admission/Observation Consideration of admission/observation: Escalation of care including admission/observation considered Lab Data [facility] Lab Attestation statement: I reviewed the patient's lab results. (No leukocytosis. Chronic anemia with a hemoglobin 9.8, hematocrit 28.5.) Sodium of 121, chloride of 87, BUN of 17 and creatinine 1.41. Glucose elevated to 55 with no evidence of DKA 02/14/23 20:56 02/14/23 20:56 Labs: Lab Results 02/14/23 02/14/23 02/14/23 Range/Units 20:56 20:56 20:56 WBC 8.9 (4.8-10.8) X10*3/uL RBC 3.45 L (4.60-5.80) X10*6/uL Hgb 9.8 L (14.0-18.0) g/dl Hct 28.5 L (42.0-52.0) % MCV 82.6 (80.0-98.0) fL MCH 28.4 (27.0-33.0) pg MCHC 34.4 (31.0-36.0) g/dl RDW 12.9 (11.0-16.0) % Plt Count 188 (160-400) X10*3/uL MPV 9.5 (9.4-12.4) fL Immature Gran % (Auto) 0.9 H (0.0-0.4) % Neut % (Auto) 57.5 (45-73) % Lymph % (Auto) 26.1 (20-40) % [place] % (Auto) 13.3 H (2-11) % Eos % (Auto) 1.9 (0-4) % Baso % (Auto) 0.3 (0-2) % Lymph # (Auto) 2.3 (1.2-4.9) X10*3/uL [place] # (Auto) 1.2 (0.1-1.2) X10*3/uL Eos # (Auto) 0.2 (0.0-0.4) X10*3/uL Baso # (Auto) 0.0 (0.0-0.2) X10*3/uL Abs Immat Gran (auto) 0.08 H (0.00-0.03) X10*3/uL Absolute Neuts (auto) 5.1 (2.0-8.3) x10*3/uL Absolute Nucleated RBC 0.000 (0.0-0.012) X10*3/uL Nucleated RBC % (auto) 0.0 (0.0-0.2) /100WBC PT 11.0 (10.0-13.1) SEC INR 1.0 (0.9-1.1) O2 Saturation % ABG pH at Pt Temp (7.35-7.45) ABG pCO2 at Pt Temp (32-45) mmHg ABG pO2 at Pt Temp (83-108) mmHg ABG HCO3 (22-26) mmol/L ABG Base Excess (Actual) mmol/L Sodium 121 L (135-145) mmol/L Potassium 3.7 (3.3-5.1) mmol/L Chloride 87 L (96-108) mmol/L Carbon Dioxide 25 (22-29) mmol/L Anion Gap 13 (12-20) BUN 17 H (9-16) mg/dL Creatinine 1.41 H (0.5-1.4) mg/dL Estim Creat Clear Calc 51.7 Estimated GFR 50 Random Glucose 255 H (60-115) mg/dL Calcium 9.0 (8.4-10.2) mg/dL Magnesium 1.7 (1.6-2.6) mg/dL Total Bilirubin 0.2 (0.0-1.0) mg/dL Direct Bilirubin < 0.2 (0.0-0.5) mg/dL AST 10 (5-37) U/L ALT 11 (0-40) U/L Alkaline Phosphatase 47 (39-117) U/L Troponin I High Sens (<3.5-35.0) ng/L B-Natriuretic Peptide (<100) pg/mL Total Protein 6.8 (6.5-8.0) g/dL Albumin 3.5 (3.5-5.0) g/dL 02/14/23 02/14/23 02/14/23 Range/Units 20:56 20:56 23:54 WBC (4.8-10.8) X10*3/uL RBC (4.60-5.80) X10*6/uL Hgb (14.0-18.0) g/dl Hct (42.0-52.0) % MCV (80.0-98.0) fL MCH (27.0-33.0) pg MCHC (31.0-36.0) g/dl RDW (11.0-16.0) % Plt Count (160-400) X10*3/uL MPV (9.4-12.4) fL Immature Gran % (Auto) (0.0-0.4) % Neut % (Auto) (45-73) % Lymph % (Auto) (20-40) % [place] % (Auto) (2-11) % Eos % (Auto) (0-4) % Baso % (Auto) (0-2) % Lymph # (Auto) (1.2-4.9) X10*3/uL [place] # (Auto) (0.1-1.2) X10*3/uL Eos # (Auto) (0.0-0.4) X10*3/uL Baso # (Auto) (0.0-0.2) X10*3/uL Abs Immat Gran (auto) (0.00-0.03) X10*3/uL Absolute Neuts (auto) (2.0-8.3) x10*3/uL Absolute Nucleated RBC (0.0-0.012) X10*3/uL Nucleated RBC % (auto) (0.0-0.2) /100WBC PT (10.0-13.1) SEC INR (0.9-1.1) O2 Saturation 95.0 % ABG pH at Pt Temp 7.47 H (7.35-7.45) ABG pCO2 at Pt Temp 43 (32-45) mmHg ABG pO2 at Pt Temp 75 L (83-108) mmHg ABG HCO3 32 H (22-26) mmol/L ABG Base Excess (Actual) 7.9 mmol/L Sodium (135-145) mmol/L Potassium (3.3-5.1) mmol/L Chloride (96-108) mmol/L Carbon Dioxide (22-29) mmol/L Anion Gap (12-20) BUN (9-16) mg/dL Creatinine (0.5-1.4) mg/dL Estim Creat Clear Calc Estimated GFR Random Glucose (60-115) mg/dL Calcium (8.4-10.2) mg/dL Magnesium (1.6-2.6) mg/dL Total Bilirubin (0.0-1.0) mg/dL Direct Bilirubin (0.0-0.5) mg/dL AST (5-37) U/L ALT (0-40) U/L Alkaline Phosphatase (39-117) U/L Troponin I High Sens 6.0 (<3.5-35.0) ng/L B-Natriuretic Peptide 29 (<100) pg/mL Total Protein (6.5-8.0) g/dL Albumin (3.5-5.0) g/dL ABG Data Attestation ABG: I personally reviewed and interpreted this ABG as follows: Interpretation: Mild hypoxemia with PO2 of 75. No significant hypercapnia with a pCO2 of 43, within normal limits. Mild alkalosis with a pH of 7.47. Independent Interpretation I performed an independent interpretation of an: Plain X-Ray (Patchy infiltrates in lower lobes) Radiology Impression Discussion of test interpretation with radiology: I have reviewed the radiologist's reading. (Concern for aspiration pneumonia, small left pleural effusion which is new) External Record Review External record reviewed: Inpatient record Prescription Management I considered prescription management with: Antibiotic Chronic Conditions Patient?s care impacted by: Diabetes Discharge Plan Discharge Clinical Impression: Acute hyponatremia, Aspiration pneumonitis Patient Disposition: Admitted As Inpatient
[2023-02-14 23:57] VITALS: BP 133/64; PULSE 64; RESP 22; O2SAT 97
[2023-02-14] MEDS: cefTRIAXone sodium 1 GM in 0.9 % Sodium Chloride 50 ML IV (23:58)
[2023-02-14] MEDS: 0.9 % Sodium Chloride 1,000 ML 250 ML IVCONT (23:59)
[2023-02-15 00:03] VITALS: O2SAT 93
[2023-02-15 00:05] LABS: ABG Base Excess 7.9 mmol/L; ABG HCO3 32 mmol/L (22-26); ABG pCO2 43 mmHg (32-45); ABG pH 7.47 (7.35-7.45); ABG pO2 75 mmHg (83-108)
[2023-02-15 00:17] LABS: Lactic Acid 1.4 mmol/L (0.5-2.0)
--- NOTE | 2023-02-15 00:28 | PM.IMHP ---
History of Present Illness Date of Service: 02/15/23 Chief Complaint: Chest pain This is a 68-year-old male past medical history of COPD, HTN, HLD, this of hernia, type 2 diabetes, SIADH, presents the hospital with complaints of chest pain. Patient is somnolent, arousable, answers questions with yes and no, falls right back asleep. Unable to get much history from the patient. It appears the patient was brought in from skilled nursing with complaints of 3/10 chest pain that was midsternal. Vitals on arrival stable with no significant abnormal vitals Labs are significant for sodium of 121, pH of 7.47, CO2 of 43, creatinine of 1.41, Chest x-ray shows few patchy left basilar airspace opacities concerning for aspiration or infection Patient will be admitted for further management Review of Systems Review of Systems: Yes Unobtainable due to mental condition and Unobtainable due to mental status PMFSH Medical History Centrilobular emphysema Chronic bronchitis COPD (chronic obstructive pulmonary disease) Essential hypertension Hyperlipidemia LDL goal <70 Multiple pulmonary nodules Schizophrenia Smoker Type 2 diabetes mellitus with diabetic polyneuropathy Family History Father Prostate cancer Diabetes Mother Diabetes Hypertension CVD (cardiovascular disease) Social History Household Members: Other Housing: Other Housing Other:: intermediate Do you presently have visiting nurse or other home services: Yes Unable to assess alcohol history related to: Refusing to respond Alcohol intake: current Alcohol intake frequency: does not drink Patient Tobacco Use Status: Current everyday Tobacco user Tobacco use type: Cigarette Cigarette Packs Per Day: 1 Cigarettes Per Day: 20.0 Years Smoked: 40 Advance Directives: Yes Advance Directives on File: Yes Advance Directives Date on File: 10/25/22 service: No Current occupational status: disabled Cognitive needs: No Hearing needs: No Vision needs: No Meds Allergies Allergy/AdvReac Type Severity Reaction Status Date / Time No Known Allergies Allergy Mild NOT Verified 02/06/23 11:12 APPLICABLE Active Medications: Current Medications Acetaminophen (Acetaminophen 325 Mg Tablet) 650 mg PO Q6H PRN PRN Reason: Pain, Mild (Pain Scale 1-3) Docusate Sodium (Docusate Sodium 100 Mg Capsule) 100 mg PO DAILY PRN PRN Reason: Constipation Sodium Chloride (Ns) 1,000 mls @ 250 mls/hr IVCONT .Q4H DESHAUN Stop: 02/15/23 03:44 Last Admin: 02/14/23 23:59 Dose: 250 mls/hr Azithromycin 500 mg/ Sodium (Chloride) 250 mls @ 125 mls/hr IV ONCE ONE Stop: 02/15/23 01:31 Ampicillin Sodium/Sulbactam (Sodium 3 gm/ Sodium Chloride) 100 mls @ 200 mls/hr IV Q8H DESHAUN Ondansetron HCl (Ondansetron Hcl 4 Mg/2 Ml Vial) 4 mg IVPUSH Q8H PRN PRN Reason: Nausea and Vomiting Home Medications Medication Instructions Recorded Confirmed Last Taken Type benztropine 2 mg tablet 2 mg PO BID 11/22/20 10/30/22 08/18/22 13:00 History divalproex 500 mg tablet,extended 1,500 mg PO BEDTIME 07/16/21 10/30/22 08/17/22 History release 24 hr olanzapine 10 mg tablet 10 mg PO BID 07/16/21 10/30/22 08/18/22 13:00 History fluphenazine HCl 5 mg tablet 5 mg PO BID 11/26/21 10/30/22 08/18/22 13:00 History gabapentin 300 mg capsule 300 mg PO TID 11/26/21 10/30/22 08/18/22 13:00 History propranolol 20 mg tablet 1 tab PO BEDTIME 08/18/22 10/30/22 08/17/22 History cefuroxime axetil 500 mg tablet 500 mg PO BID 01/28/23 Unknown History propranolol 10 mg tablet 10 mg PO ONCE 01/28/23 Unknown History vitamin E 1,150 unit/1.25 mL oral 1,000 unit PO DAILY 01/28/23 Unknown History liquid Physical Exam Vital Signs and Narrative: Vital Signs: Last Vital Signs Temp 98.8 F 02/14/23 20:57 Pulse 64 02/14/23 23:57 Resp 22 H 02/14/23 23:57 BP 133/64 02/14/23 23:57 Pulse Ox 97 02/14/23 23:57 O2 Del Method Room Air 02/14/23 23:57 BMI result Body Mass Index 26.3 Const: Other: Somnolent but arousable General: no acute distress Eyes: Pupils: Equal, round and reactive pupils present Resp: Effort & Inspection: normal respiratory effort Cardio: Rate: regular rate Rhythm: regular rhythm GI: Palpation (GI): Soft to palpation Auscultation: normal bowel sounds Skin: General skin exam: no rashes or lesions noted Neuro: Cranial nerves: Yes Equal, round and reactive pupils present Extrem: General: Yes normal to inspection and Yes no pedal edema Results Labs 02/14/23 20:56 02/14/23 20:56 Labs: Laboratory Results - last 24 hr 02/14/23 02/14/23 02/14/23 20:56 20:56 20:56 MCV 82.6 MCH 28.4 MCHC 34.4 RDW 12.9 Plt Count 188 MPV 9.5 Immature Gran % (Auto) 0.9 H Neut % (Auto) 57.5 Lymph % (Auto) 26.1 [place] % (Auto) 13.3 H Eos % (Auto) 1.9 Baso % (Auto) 0.3 Lymph # (Auto) 2.3 [place] # (Auto) 1.2 Eos # (Auto) 0.2 Baso # (Auto) 0.0 Abs Immat Gran (auto) 0.08 H Absolute Neuts (auto) 5.1 Absolute Nucleated RBC 0.000 Nucleated RBC % (auto) 0.0 PT 11.0 INR 1.0 O2 Saturation ABG pH at Pt Temp ABG pCO2 at Pt Temp ABG pO2 at Pt Temp ABG HCO3 ABG Base Excess (Actual) Anion Gap 13 Estim Creat Clear Calc 51.7 Estimated GFR 50 Random Glucose 255 H Lactic Acid Calcium 9.0 Magnesium 1.7 Total Bilirubin 0.2 Direct Bilirubin < 0.2 AST 10 ALT 11 Alkaline Phosphatase 47 Troponin I High Sens B-Natriuretic Peptide Total Protein 6.8 Albumin 3.5 02/14/23 02/14/23 02/14/23 20:56 20:56 23:44 MCV MCH MCHC RDW Plt Count MPV Immature Gran % (Auto) Neut % (Auto) Lymph % (Auto) [place] % (Auto) Eos % (Auto) Baso % (Auto) Lymph # (Auto) [place] # (Auto) Eos # (Auto) Baso # (Auto) Abs Immat Gran (auto) Absolute Neuts (auto) Absolute Nucleated RBC Nucleated RBC % (auto) PT INR O2 Saturation ABG pH at Pt Temp ABG pCO2 at Pt Temp ABG pO2 at Pt Temp ABG HCO3 ABG Base Excess (Actual) Anion Gap Estim Creat Clear Calc Estimated GFR Random Glucose Lactic Acid 1.4 Calcium Magnesium Total Bilirubin Direct Bilirubin AST ALT Alkaline Phosphatase Troponin I High Sens 6.0 B-Natriuretic Peptide 29 Total Protein Albumin 02/14/23 23:54 MCV MCH MCHC RDW Plt Count MPV Immature Gran % (Auto) Neut % (Auto) Lymph % (Auto) [place] % (Auto) Eos % (Auto) Baso % (Auto) Lymph # (Auto) [place] # (Auto) Eos # (Auto) Baso # (Auto) Abs Immat Gran (auto) Absolute Neuts (auto) Absolute Nucleated RBC Nucleated RBC % (auto) PT INR O2 Saturation 95.0 ABG pH at Pt Temp 7.47 H ABG pCO2 at Pt Temp 43 ABG pO2 at Pt Temp 75 L ABG HCO3 32 H ABG Base Excess (Actual) 7.9 Anion Gap Estim Creat Clear Calc Estimated GFR Random Glucose Lactic Acid Calcium Magnesium Total Bilirubin Direct Bilirubin AST ALT Alkaline Phosphatase Troponin I High Sens B-Natriuretic Peptide Total Protein Albumin Imaging Radiologist's Impressions: Impressions Chest X-Ray 02/14/23 20:00 IMPRESSION: 1. Few patchy left basilar airspace opacities which may reflect aspiration or infection. Recommend follow-up radiographs to ensure resolution. 2. New small left pleural effusion. Assessment and Plan (1) Acute encephalopathy: Status: Acute (2) Chest pain: Status: Acute (3) Chronic hyponatremia: Status: Acute (4) SIADH (syndrome of inappropriate ADH production): Status: Acute (5) Acute hyponatremia: Status: Acute (6) Aspiration pneumonitis: Status: Acute Plan This is a 60-year-old skilled nursing resident who comes into the hospital with complaints of chest pain found to be encephalopathic as well as hyponatremic # encephalopathy - possibly secondary to hyponatremia complicated by acute pneumonia - patient has somnolent but arousable, no evidence of seizures, - similar presentation in October - will treat hyponatremia, as well as pneumonia - follow mentation # chest pain - can not get much history from the patient in regards to characterization - but troponin negative, no EKG changes suggestive of ACS - monitor # acute on chronic hyponatremia - patient was similar admission in October with SIADH hyponatremia - at this time will place NPO given his concern for aspiration but patient should have fluid restriction to 1500 cc/day once able to take p.o. - will consult Nephrology - follow BMP closely - hold antipsychotics/mood stabilizers # aspiration pneumonia - will keep him NPO, speech consult, Unasyn - follow cultures # diabetes - continue home insulin - low-dose sliding scale insulin - diabetic diet once able to be # COPD - no acute exacerbation - continue home inhalers # hypertension - continue antihypertensives DVT prophylaxis: Lovenox Given patient's encephalopathy, hyponatremia, patient will require minimum 2 nights inpatient hospital stay for further management and monitoring Time Spent With Patient Time: Total time managing care of this patient today ____ minutes. Quality Stroke Does the patient have a stroke diagnosis?: No VTE Prior VTE?: No VTE Risk Level:: Medical - moderate - high VTE Device Contraindication: Treatment Not Indicated VTE Drug Contraindication: N/A - Med Ordered
[2023-02-15] MEDS: Azithromycin 500 MG in 0.9 % Sodium Chloride 250 ML 125 MG IV (00:52)
[2023-02-15 01:05] VITALS: BP 140/75; PULSE 73; RESP 18; O2SAT 94
[2023-02-15 01:08] LABS: ABG Refer to POC result
--- NOTE | 2023-02-15 01:53 | PC.NURSE ---
pt comtinues to yell out wanting food. this rn discussed with dr tolliver. dr tolliver contacted dr geller. per dr geller perform bedside swallow eval. pt passed bedside swallow eval tis rn made dr geller aware. per pt okay to eat food
[2023-02-15 02:49] VITALS: BP 145/76; PULSE 78; RESP 19; O2SAT 94
[2023-02-15] MEDS: Ampicillin Sodium/Sulbactam Na 3 GM in 0.9 % Sodium Chloride 100 ML IV (03:29)
[2023-02-15] MEDS: OLANZapine 10 MG TABLET PO (04:58)
[2023-02-15] MEDS: Morphine Sulfate 4 MG/ML CARTRIDGE IVPUSH (05:04)
[2023-02-15] MEDS: Benzonatate 100 MG CAPSULE 200 MG PO (05:05)
[2023-02-15 06:17] LABS: Ammonia 47 umol/L (13-55)
[2023-02-15 06:26] LABS: Alanine Aminotransferase 10 U/L (0-40); Albumin Level 3.4 g/dL (3.5-5.0); Alkaline Phosphatase 50 U/L (39-117); Anion Gap 11 (12-20); Aspartate Amino Transferase 12 U/L (5-37); Bilirubin Total 0.2 mg/dL (0.0-1.0); Blood Urea Nitrogen 18 mg/dL (9-16); Calcium 9.3 mg/dL (8.4-10.2); Carbon Dioxide 26 mmol/L (22-29); Chloride 94 mmol/L (96-108); Creatinine Clr Calc Pharmacy 67.5; Estimated Glomerular Filt Rate > 60; Glucose Random 216 mg/dL (60-115); Potassium 3.7 mmol/L (3.3-5.1); Sodium 127 mmol/L (135-145); Total Protein 6.7 g/dL (6.5-8.0)
--- NOTE | 2023-02-15 06:49 | PC.NURSE ---
late entry-@ [address] segura aware of pt calling out, throwing urinal, yelling at staff. this rn performed med rec. this rn suggested restarting pt 's home zyprexa order. no new orders placed at that time. @ 0403 pt increase in cough. pt medicated according to mar
[2023-02-15 07:16] VITALS: BP 121/63; PULSE 82; RESP 17; O2SAT 96
[2023-02-15 07:17] LABS: Glucose, Whole Blood 185 mg/dL (60-115)
[2023-02-15] MEDS: Insulin Lispro 100 UNIT/ML 3 ML VIAL SUBCUT (07:27)
--- NOTE | 2023-02-15 07:30 | PC.NURSE ---
pt axox4, respirations even and unlabored, sats 95-96% on RA, NSR on monitor 90 bpm, speaking in full clear sentences. occasional nonproductive cough noted. POC 185; pt medicated per MAR. will inquire about dietary status for pt. pt denies having further questions/concerns. bed in lowest position, call estes within reach, pt sleeping at this time.
--- NOTE | 2023-02-15 08:36 | PM.CNNEP ---
History of Present Illness Reason for Consult Consult date: 02/15/23 Chief Complaint Chief complaint: Hyponatremia, pneumonia History of Present Illness Narrative: 68 year old patient with history of chronic hyponatremia admitted with chest pain found to have low serum sodium. At the time of the consultation he denies fever, chills, chest pain, shortness of breath, nausea vomiting or diarrhea.. Review of Systems Review of Systems 10 points ROS negative except for pertinent in HPI PMFSH Past Medical History Medical History Centrilobular emphysema Chronic bronchitis COPD (chronic obstructive pulmonary disease) Essential hypertension Hyperlipidemia LDL goal <70 Multiple pulmonary nodules Schizophrenia Smoker Type 2 diabetes mellitus with diabetic polyneuropathy Family History Family History Father Prostate cancer Diabetes Mother Diabetes Hypertension CVD (cardiovascular disease) Social History Social History Household Members: Other Housing: Other Housing Other:: senior care Do you presently have visiting nurse or other home services: Yes Unable to assess alcohol history related to: Refusing to respond Alcohol intake: current Alcohol intake frequency: does not drink Patient Tobacco Use Status: Current everyday Tobacco user Tobacco use type: Cigarette Cigarette Packs Per Day: 1 Cigarettes Per Day: 20.0 Years Smoked: 40 Advance Directives: Yes Advance Directives on File: Yes Advance Directives Date on File: 10/25/22 service: No Current occupational status: disabled Cognitive needs: No Hearing needs: No Vision needs: No Meds Allergies Allergy/AdvReac Type Severity Reaction Status Date / Time No Known Allergies Allergy Mild NOT Verified 02/06/23 11:12 APPLICABLE Active Medications: Current Medications Acetaminophen (Acetaminophen 325 Mg Tablet) 650 mg PO Q6H PRN PRN Reason: Pain, Mild (Pain Scale 1-3) Albuterol Sulfate (Albuterol Sulfate 90 Mcg 8 Gm Inhaler) 2 puff INHALE Q4H PRN PRN Reason: shortness of breath or wheezing Albuterol/Ipratropium (Albuterol/Iprat 2.5/0.5mg 3 Ml Ampul.Neb) 3 ml INHALE RBID DESHAUN Last Admin: 02/15/23 08:20 Dose: Not Given Amlodipine Besylate (Amlodipine Besylate 10 Mg Tablet) 10 mg PO DAILY [facility]; Protocol Aspirin (Aspirin Enteric Coated 81 Mg Tablet.Dr) 81 mg PO DAILY [facility] Atorvastatin Calcium (Atorvastatin Calcium 10 Mg Tablet) 10 mg PO DAILY [facility] Benzonatate (Benzonatate 100 Mg Capsule) 200 mg PO TID PRN PRN Reason: cough Last Admin: 02/15/23 05:05 Dose: 200 mg Dextrose (Dextrose 50 % 25 Gm/50 Ml Syringe) 25 gm IVPUSH Q15M PRN; Protocol PRN Reason: per Hypoglycemia Standing Ord. Divalproex Sodium (Divalproex Sodium Er 500 Mg Tab.Er.24h) 1,500 mg PO BEDTIME [facility] Docusate Sodium (Docusate Sodium 100 Mg Capsule) 100 mg PO DAILY PRN PRN Reason: Constipation Docusate Sodium (Docusate Sodium 100 Mg Capsule) 100 mg PO DAILY PRN PRN Reason: constipation Fluphenazine HCl (Fluphenazine Hcl 5 Mg Tablet) 5 mg PO BID [facility] Fluticasone/Umeclidinium/Vilanterol (Fluticasone/Umeclidinium/Vilanterol 100/62.5/25 Blst.W.Dev) 1 puff INHALE DAILY [facility] Gabapentin (Gabapentin 300 Mg Capsule) 300 mg PO TID [facility] Glucose (Glucose Gel 15 Gm Gel..Gram.) 15 gm PO Q15M PRN; Protocol PRN Reason: per Hypoglycemia Standing Ord. Guaifenesin/Dextromethorphan (Guaifenesin Dm 600/30 1 Tab Tab.Er.12h) 1 tab PO BID PRN PRN Reason: cogh Guaifenesin/Dextromethorphan (Guaifenesin Dm 100/10/5 Ml 5 Ml Syrup) 5 ml PO Q4H PRN PRN Reason: Cough Ampicillin Sodium/Sulbactam (Sodium 3 gm/ Sodium Chloride) 100 mls @ 200 mls/hr IV Q8H [facility] Insulin Human Lispro (Insulin Lispro 100 Unit/Ml 3 Ml Vial) 0 unit SUBCUT QIDACHS [facility]; Protocol Last Admin: 02/15/23 07:27 Dose: 2 unit Magnesium Hydroxide (Milk Of Magnesia 30 Ml Oral.Susp) 5 ml PO BEDTIME PRN PRN Reason: for severe constipation only Non-Formulary Medication (Benztropine) 2 mg PO BID [facility] Olanzapine (Olanzapine 10 Mg Tablet) 10 mg PO BID DESHAUN Last Admin: 02/15/23 04:58 Dose: 10 mg Omeprazole (Omeprazole 20 Mg Capsule.Dr) 20 mg PO BID DESHAUN Ondansetron HCl (Ondansetron Hcl 4 Mg/2 Ml Vial) 4 mg IVPUSH Q8H PRN PRN Reason: Nausea and Vomiting Prednisone (Prednisone 20 Mg Tablet) 0 mg PO DAILY [facility]HA[facility] Propranolol HCl (Propranolol Hcl 20 Mg Tablet) 20 mg PO BEDTIME [facility]HA[facility]; Protocol Senna (Sennosides 8.6 Mg Tablet) 17.2 mg PO DAILY PRN PRN Reason: constipation Home Medications Medication Instructions Recorded Confirmed Last Taken Type benztropine 2 mg tablet 2 mg PO BID 11/22/20 02/15/23 08/18/22 13:00 History divalproex 500 mg tablet,extended 1,500 mg PO BEDTIME 07/16/21 02/15/23 08/17/22 History release 24 hr olanzapine 10 mg tablet 10 mg PO BID 07/16/21 02/15/23 08/18/22 13:00 History fluphenazine HCl 5 mg tablet 5 mg PO BID 11/26/21 02/15/23 08/18/22 13:00 History gabapentin 300 mg capsule 300 mg PO TID 11/26/21 02/15/23 08/18/22 13:00 History propranolol 20 mg tablet 1 tab PO BEDTIME 08/18/22 02/15/23 08/17/22 History vitamin E 1,150 unit/1.25 mL oral 1,000 unit PO DAILY 01/28/23 02/15/23 Unknown History liquid azithromycin 250 mg tablet 250 mg PO MOWEFR@0900 02/15/23 02/15/23 Unknown History cholecalciferol (vitamin D3) 125 125 mcg PO DAILY 02/15/23 Unknown History mcg (5,000 unit) capsule Physical Exam Vital Signs: Last Vital Signs Temp 98.8 F 02/14/23 20:57 Pulse 82 02/15/23 07:16 Resp 17 02/15/23 07:16 BP 121/63 02/15/23 07:16 Pulse Ox 96 02/15/23 07:16 O2 Del Method Room Air 02/15/23 07:16 BMI result Body Mass Index 26.3 Const General: no acute distress HEENT Head: Yes normocephalic and Yes atraumatic Neck Neck: Yes supple Resp Auscultation: diminished lung sounds Cardio Heart sounds: S1 normal heart sound present and S2 normal heart sound present GI Palpation (GI): Soft to palpation and nontender Extrem Right upper extremity: no edema Results Lab Results 02/14/23 20:56 02/15/23 06:01 Lab results: Chemistry 02/14/23 02/15/23 20:56 06:01 Sodium 121 L 127 L Potassium 3.7 3.7 Carbon Dioxide 25 26 BUN 17 H 18 H Creatinine 1.41 H 1.08 Calcium 9.0 9.3 Hematology 02/14/23 20:56 WBC 8.9 Hgb 9.8 L Plt Count 188 Assessment and Plan (1) Hyponatremia: Status: Acute Plan hypotonic euvolemic hyponatremia previously low Uosm (201) not c/w SIADH suspect excessive free water intake and poor solute excretion h/o chronic hyponatremia he is olanzapine and divalproex which can cause SIADH REC fluid restriction 1500 cc daily Urea 15 g to increase solute osmotic load follow electrolytes Time Spent With Patient Time: Total time managing care of this patient today ____ minutes. Procedures Date of Service Date of Service: 02/15/23
--- NOTE | 2023-02-15 09:38 | PM.EVENT ---
Event Note Date of Service: 02/15/23 Event Note: Seen and evaluated this morning More alert with stimulation, knows he is in hospital, no able to provide more info passed bedside swallowing test overnight start modified diet Na improved to 127 Urea per nephrology Follow BMP Continue antibiotics for Pneumonia Time Spent With Patient Time: Total time managing care of this patient today ____ minutes.
--- NOTE | 2023-02-15 09:57 | PHA.MEDREC ---
Pharmacy Consult ? Medication Reconciliation Pharmacy has completed the medication reconciliation. Spoke to [facility] to confirm meds. Per [facility], patient's morning meds were signed off as having received them this morning, however patient has been in the ED since 0 on 02/14/23.
--- NOTE | 2023-02-15 10:31 | PC.NURSE ---
Addendum entered by Romelia Barba 02/15/23 10:35: IV removed Original Note: Pt increasingly agitated requesting to go home. nursing home called and states pt does this frequently whenever goes to hospital and is able to freely leave [facility]. Walks from hospital freely. This RN spoke to Dino at [facility], confirms [facility], Dr Parkinson aware and will send rx there. Dr Parkinson to bedside. Pt left, did not sign. Steady when walking.
--- NOTE | 2023-02-15 10:33 | PM.DS ---
DS: Providers Provider Date of Service: 02/15/23 Date of admission: 02/15/23 00:24 Primary care physician: Unknown Physician Consults: 02/15/23 00:21 Consult to Nephrology Routine Consulting Provider: [facility] Reason for consultation: Hyponatremia Has provider been notified: No DS: Diagnosis Discharge Diagnosis (1) Acute encephalopathy: Status: Acute (2) Acute hyponatremia: Status: Acute DS: Summary Hospital Course Hospital Course: The patient was admitted for treatment of encephalopathy related to acute on chronic hyponatremia. He was treated with water restriction and started on antibiotics for possible aspiration pneumonitis\pneumonia. Sodium level improved to 127 which is close to his baseline. his mentation improved back to baseline and he asked to leave AMA. He Did not require oxygen supplement and saturation was mid 90s on RA. I explained to him the need to stay inpatient to finish work up for low sodium pending nephrology evaluation and the follow up on possible lung infection but he refused to stay and insisted on leaving AMA. signed and left. DC Hydrochlorothiazide Water restriction to 1200cc daily Augmentin for 5 more days Time Spent with Patient Time attestation: Total time managing care of this patient today ____ minutes. Discharge coordination time: Greater than 30 minutes Quality: Safe Use of Opioids Does Pt have an Active Cancer Diagnosis on the Problem List?: No Quality: Stroke Does the patient have a stroke diagnosis?: No Physical Exam Vital Signs: Vital Signs: Last Vital Signs Temp 98.8 F 02/14/23 20:57 Pulse 82 02/15/23 07:16 Resp 17 02/15/23 07:16 BP 121/63 02/15/23 07:16 Pulse Ox 96 02/15/23 07:16 O2 Del Method Room Air 02/15/23 07:16 BMI result Body Mass Index 26.3 Const: Other: left AMA DS: Data Data Completed and Pending Labs on day of discharge: Laboratory Results - last 24 hr 02/14/23 02/14/23 02/14/23 20:56 20:56 20:56 WBC 8.9 RBC 3.45 L Hgb 9.8 L Hct 28.5 L MCV 82.6 MCH 28.4 MCHC 34.4 RDW 12.9 Plt Count 188 MPV 9.5 Immature Gran % (Auto) 0.9 H Neut % (Auto) 57.5 Lymph % (Auto) 26.1 [place] % (Auto) 13.3 H Eos % (Auto) 1.9 Baso % (Auto) 0.3 Lymph # (Auto) 2.3 [place] # (Auto) 1.2 Eos # (Auto) 0.2 Baso # (Auto) 0.0 Abs Immat Gran (auto) 0.08 H Absolute Neuts (auto) 5.1 Absolute Nucleated RBC 0.000 Nucleated RBC % (auto) 0.0 PT 11.0 INR 1.0 O2 Saturation ABG pH at Pt Temp ABG pCO2 at Pt Temp ABG pO2 at Pt Temp ABG HCO3 ABG Base Excess (Actual) Sodium 121 L Potassium 3.7 Chloride 87 L Carbon Dioxide 25 Anion Gap 13 BUN 17 H Creatinine 1.41 H Estim Creat Clear Calc 51.7 Estimated GFR 50 POC Glucose Random Glucose 255 H Lactic Acid Calcium 9.0 Magnesium 1.7 Total Bilirubin 0.2 Direct Bilirubin < 0.2 AST 10 ALT 11 Alkaline Phosphatase 47 Ammonia Troponin I High Sens B-Natriuretic Peptide Total Protein 6.8 Albumin 3.5 02/14/23 02/14/23 02/14/23 20:56 20:56 23:44 WBC RBC Hgb Hct MCV MCH MCHC RDW Plt Count MPV Immature Gran % (Auto) Neut % (Auto) Lymph % (Auto) [place] % (Auto) Eos % (Auto) Baso % (Auto) Lymph # (Auto) [place] # (Auto) Eos # (Auto) Baso # (Auto) Abs Immat Gran (auto) Absolute Neuts (auto) Absolute Nucleated RBC Nucleated RBC % (auto) PT INR O2 Saturation ABG pH at Pt Temp ABG pCO2 at Pt Temp ABG pO2 at Pt Temp ABG HCO3 ABG Base Excess (Actual) Sodium Potassium Chloride Carbon Dioxide Anion Gap BUN Creatinine Estim Creat Clear Calc Estimated GFR POC Glucose Random Glucose Lactic Acid 1.4 Calcium Magnesium Total Bilirubin Direct Bilirubin AST ALT Alkaline Phosphatase Ammonia Troponin I High Sens 6.0 B-Natriuretic Peptide 29 Total Protein Albumin 02/14/23 02/15/23 02/15/23 23:54 06:01 06:01 WBC RBC Hgb Hct MCV MCH MCHC RDW Plt Count MPV Immature Gran % (Auto) Neut % (Auto) Lymph % (Auto) [place] % (Auto) Eos % (Auto) Baso % (Auto) Lymph # (Auto) [place] # (Auto) Eos # (Auto) Baso # (Auto) Abs Immat Gran (auto) Absolute Neuts (auto) Absolute Nucleated RBC Nucleated RBC % (auto) PT INR O2 Saturation 95.0 ABG pH at Pt Temp 7.47 H ABG pCO2 at Pt Temp 43 ABG pO2 at Pt Temp 75 L ABG HCO3 32 H ABG Base Excess (Actual) 7.9 Sodium 127 L Potassium 3.7 Chloride 94 L Carbon Dioxide 26 Anion Gap 11 L BUN 18 H Creatinine 1.08 Estim Creat Clear Calc 67.5 Estimated GFR > 60 POC Glucose Random Glucose 216 H Lactic Acid Calcium 9.3 Magnesium Total Bilirubin 0.2 Direct Bilirubin AST 12 ALT 10 Alkaline Phosphatase 50 Ammonia 47 Troponin I High Sens B-Natriuretic Peptide Total Protein 6.7 Albumin 3.4 L 02/15/23 07:13 WBC RBC Hgb Hct MCV MCH MCHC RDW Plt Count MPV Immature Gran % (Auto) Neut % (Auto) Lymph % (Auto) [place] % (Auto) Eos % (Auto) Baso % (Auto) Lymph # (Auto) [place] # (Auto) Eos # (Auto) Baso # (Auto) Abs Immat Gran (auto) Absolute Neuts (auto) Absolute Nucleated RBC Nucleated RBC % (auto) PT INR O2 Saturation ABG pH at Pt Temp ABG pCO2 at Pt Temp ABG pO2 at Pt Temp ABG HCO3 ABG Base Excess (Actual) Sodium Potassium Chloride Carbon Dioxide Anion Gap BUN Creatinine Estim Creat Clear Calc Estimated GFR POC Glucose 185 H Random Glucose Lactic Acid Calcium Magnesium Total Bilirubin Direct Bilirubin AST ALT Alkaline Phosphatase Ammonia Troponin I High Sens B-Natriuretic Peptide Total Protein Albumin Imaging Chest x-ray: Radiologist's impression: ITS Impressions Chest X-Ray 02/14/23 20:00 IMPRESSION: 1. Few patchy left basilar airspace opacities which may reflect aspiration or infection. Recommend follow-up radiographs to ensure resolution. 2. New small left pleural effusion. Discharge Plan Discharge Patient Disposition: Left Against Medical Advice Discharge Diagnosis: Left AMA Referrals: Physician,Unknown J [Primary Care Provider] - 1 Week Discharge Medications: New lisinopril 10 mg tablet 10 mg PO DAILY Qty: 30 0RF amoxicillin-pot clavulanate 400-57 mg/5 mL suspension for reconstitution 10 ml PO BID Qty: 100 0RF Continued (DME) blood-glucose meter [FreeStyle Lite Meter] Kit See Rx Instructions .ROUTE .MEDSUPPLY Qty: 1 0RF Rx Instructions: As directed insulin degludec [Tresiba FlexTouch U-100] 100 unit/mL (3 mL) insulin pen 10 unit subcut DAILY Qty: 15 1RF magnesium hydroxide [Milk of Magnesia] 400 mg/5 mL suspension 5 ml PO BEDTIME PRN (Reason: for severe constipation only) Qty: 355 0RF (DME) FreeStyle Lite Strips Strip See Rx Instructions .Route Qty: 100 6RF Rx Instructions: Use to check blood sugar three times daily (DME) pen needle, diabetic [BD Ultra-Fine Mini Pen Needle] 31 gauge x 3/16 needle See Rx Instructions subcut TID Qty: 100 1RF Rx Instructions: As directed to inject insulin daily albuterol sulfate 90 mcg/actuation aerosol powdr breath activated 2 inh inhalation Q4-6H PRN (Reason: shortness of breath or wheezing) Qty: 1 2RF docusate sodium 100 mg capsule 100 mg PO DAILY PRN (Reason: constipation) Qty: 30 6RF sennosides 8.6 mg tablet 17.2 mg PO DAILY PRN (Reason: constipation) Qty: 60 2RF amlodipine 10 mg tablet 10 mg PO DAILY 90 Days Qty: 90 1RF aspirin [Adult Low Dose Aspirin] 81 mg tablet,delayed release (DR/EC) 81 mg PO DAILY Qty: 90 1RF omeprazole 20 mg capsule,delayed release(DR/EC) 20 mg PO BID 30 Days Qty: 60 3RF acetaminophen [Tylenol 8 Hour] 650 mg tablet extended release 650 mg PO Q6H PRN (Reason: pain) 30 Days Qty: 120 0RF Trulicity 0.75 mg/0.5 mL pen injector 0.75 mg subcut FR@0900 Qty: 6 1RF propranolol 20 mg tablet 1 tab PO BEDTIME cholecalciferol (vitamin D3) 125 mcg (5,000 unit) capsule 125 mcg PO BEDTIME azithromycin 250 mg tablet 250 mg PO MOWEFR@0900 Rx Instructions: Take 1 tablet on Friday/Friday/Friday prednisone 20 mg tablet 20 mg PO ONCE Rx Instructions: END DATE: 02/15/23 propranolol 20 mg tablet 10 mg PO DAILY atorvastatin 10 mg tablet 10 mg PO BEDTIME benztropine 2 mg tablet 2 mg PO BID gabapentin 300 mg capsule 300 mg PO TID fluphenazine HCl 5 mg tablet 5 mg PO BID olanzapine 10 mg tablet 10 mg PO BID vitamin E 1,150 unit/1.25 mL liquid 1,000 unit PO DAILY divalproex 500 mg tablet extended release 24 hr 1,500 mg PO BEDTIME ipratropium-albuterol 0.5 mg-3 mg(2.5 mg base)/3 mL solution for nebulization 3 ml inhalation BID 30 Days Qty: 180 11RF Trelegy Ellipta 100-62.5-25 mcg blister with device 1 inh inhalation DAILY 30 Days Qty: 60 11RF Discontinued lisinopril-hydrochlorothiazide 10-12.5 mg tablet 1 tab PO DAILY Qty: 90 1RF Discharge Orders: Discharge Order (Routine); Ordered 02/15/23 Ordered By: Niki Parkinson Care Plan Goals: . Health Concerns: . Plan of Treatment: . Assessment: .
--- NOTE | 2023-02-15 12:49 | MHC.CM.PN ---
Patient left AMA prior to being seen by case management.
== END 2023-02-15 11:40 | disposition left against medical advice (07) | DRG 640 ==
LOC: HO.ED 23:40 → HO.EDOVER 02-15 00:39
PROVIDERS: Physician Assistant; Admitting Provider Internal Medicine; Emergency Provider Emergency Medicine; PCP Nurse Practitioner Family; Visit Provider Student in an Organized Health Care Education/Training Program
DX: E87.1 Hypo-osmolality and hyponatremia (principal); J69.0 Pneumonitis due to inhalation of food and vomit; G93.49 Other encephalopathy; J43.2 Centrilobular emphysema; E11.42 Type 2 diabetes mellitus with diabetic polyneuropathy; E78.5 Hyperlipidemia, unspecified; F20.9 Schizophrenia, unspecified; F17.210 Nicotine dependence, cigarettes, uncomplicated; Z71.6 Tobacco abuse counseling; Z79.82 Long term (current) use of aspirin; Z79.4 Long term (current) use of insulin; Z79.899 Other long term (current) drug therapy
CPT/HCPCS: 36415; 71045; 80048; 80053; 80076; 82140; 82803; 82947; 83605; 83735; 83880; 84484; 85025; 85610; 87040; 93005; 99285; J0295; J0456; J0696; J2270

== ENCOUNTER → 2023-02-14 19:55 | Outpatient (BNV) | payer MEDICARE, MEDICAID, SELFPAY | PROVIDERS: Admitting Provider Internal Medicine; Emergency Provider Emergency Medicine; Visit Provider Internal Medicine Cardiovascular Disease | DX: R07.9 Chest pain, unspecified (principal) | CPT/HCPCS: 93010 ==

== ENCOUNTER → 2023-02-15 00:24 | Outpatient (BNV) | payer MEDICARE, MEDICAID, SELFPAY | PROVIDERS: Admitting Provider Internal Medicine; Emergency Provider Emergency Medicine; Visit Provider Internal Medicine | DX: G93.40 Encephalopathy, unspecified (principal); R07.9 Chest pain, unspecified; E87.1 Hypo-osmolality and hyponatremia; E22.2 Syndrome of inappropriate secretion of antidiuretic hormone; J69.0 Pneumonitis due to inhalation of food and vomit | CPT/HCPCS: 99236; 99499 ==

== ENCOUNTER 2023-03-04 19:29 | Emergency (ER) | payer MEDICARE, MEDICAID, SELFPAY ==
--- NOTE | ~2023-03-04 | XR_ITS ---
EXAMINATION: XR CHEST CLINICAL INFORMATION: Cough COMPARISON: 02/14/2023 TECHNIQUE: Frontal view of the chest was obtained. FINDINGS: Cardiac leads overlie the chest. Low lung volumes. No consolidation, edema, or effusion. No pneumothorax. The cardiomediastinal silhouette is normal limits. No acute osseous abnormality. XR/XR chest 1V IMPRESSION: Low lung volumes with no acute pulmonary finding.
--- NOTE | 2023-03-04 19:38 | ECG_ITS ---
Test Reason : CHEST PAIN Blood Pressure : / mmHG Vent. Rate : 068 BPM Atrial Rate : 068 BPM P-R Int : 180 ms QRS Dur : 102 ms QT Int : 372 ms P-R-T Axes : 079 019 048 degrees QTc Int : 395 ms Normal sinus rhythm Normal ECG When compared with ECG of 14-FEB-2023 20:03, No significant change was found Referred By: Generic ED Physician Electronically Signed By:FELISA LOERA
[2023-03-04 19:40] VITALS: BP 136/78; BP 139/70; PULSE 69; PULSE 70; RESP 28; TEMP 36.8; O2SAT 97; O2SAT 98; BMI 28.5
[2023-03-04 19:52] LABS: MANUAL DIFF FLAG NO
--- NOTE | 2023-03-04 20:00 | PC.NURSE ---
this rn assumed care of pt @ 1940. pt placed on surveillance monitor. ekg obtained. labwork obtained, iv 20g placed in R AC. pt calm and cooperative. awaiting to be seen by ed provider
--- NOTE | 2023-03-04 20:07 | ED_ITS ---
HPI - Chest Pain General Chief Complaint: Chest Pain Stated Complaint: chest pain after coughing while smoking. Time Seen by Provider: 03/04/23 20:07 Source: patient Mode of arrival: EMS Limitations: no limitations History of Present Illness HPI narrative: Patient is smoker with history of COPD stem by EMS from retirement as after having his seated patient started coughing and noticed pain bilaterally and mid chest patient just here on 02/14 for pneumonia and hyponatremia was admitted left against medical advice no fever no significant shortness of breath Related Data Home Medications Medication Instructions Recorded Confirmed benztropine 2 mg tablet 2 mg PO BID 11/22/20 02/15/23 divalproex 500 mg tablet,extended 1,500 mg PO BEDTIME 07/16/21 02/15/23 release 24 hr olanzapine 10 mg tablet 10 mg PO BID 07/16/21 02/15/23 fluphenazine HCl 5 mg tablet 5 mg PO BID 11/26/21 02/15/23 gabapentin 300 mg capsule 300 mg PO TID 11/26/21 02/15/23 propranolol 20 mg tablet 1 tab PO BEDTIME 08/18/22 02/15/23 vitamin E 1,150 unit/1.25 mL oral 1,000 unit PO DAILY 01/28/23 02/15/23 liquid atorvastatin 10 mg tablet 10 mg PO BEDTIME 02/15/23 02/15/23 azithromycin 250 mg tablet 250 mg PO MOWEFR@0900 02/15/23 02/15/23 cholecalciferol (vitamin D3) 125 125 mcg PO BEDTIME 02/15/23 02/15/23 mcg (5,000 unit) capsule prednisone 20 mg tablet 20 mg PO ONCE 02/15/23 02/15/23 propranolol 20 mg tablet 10 mg PO DAILY 02/15/23 02/15/23 Previous Rx's Medication Instructions Recorded blood-glucose meter (FreeStyle #1 ea 05/24/21 Lite Meter kit) insulin degludec 100 unit/mL (3 10 unit (0.1 mL) subcut DAILY #15 09/05/22 mL) subcutaneous pen (Tresiba mL FlexTouch U-100 insulin) magnesium hydroxide 400 mg/5 mL 5 ml PO BEDTIME PRN for severe 09/05/22 oral suspension (Milk of Magnesia) constipation only #355 mL blood sugar diagnostic (FreeStyle #100 ea 09/23/22 Lite Strips) pen needle, diabetic 31 gauge x #100 ea 11/08/22 3/16 (BD Ultra-Fine Mini Pen Needle) albuterol sulfate 90 mcg/actuation 2 inh inhalation Q4-6H PRN 11/14/22 breath activated powder inhaler shortness of breath or wheezing #1 ea docusate sodium 100 mg capsule 100 mg PO DAILY PRN constipation 12/05/22 #30 caps sennosides 8.6 mg tablet 17.2 mg PO DAILY PRN constipation 12/05/22 #60 tabs amlodipine 10 mg tablet 10 mg PO DAILY 90 days #90 tabs 01/03/23 aspirin 81 mg tablet,delayed 81 mg PO DAILY #90 tabs 01/08/23 release (Adult Low Dose Aspirin) omeprazole 20 mg capsule,delayed 20 mg PO BID 30 days #60 caps 01/23/23 release acetaminophen 650 mg 650 mg PO Q6H PRN pain 30 days 01/30/23 tablet,extended release (Tylenol 8 #120 tabs Hour) fluticasone fur. 100 mcg-umeclid 1 inh inhalation DAILY 30 days #60 02/06/23 62.5 mcg-vilant 25 mcg ea inhalat.powder (Trelegy Ellipta) ipratropium 0.5 mg-albuterol 3 mg 3 ml inhalation BID 30 days #180 mL 02/06/23 (2.5 mg base)/3 mL nebulization soln dulaglutide 0.75 mg/0.5 mL 0.75 mg (0.5 mL) subcut FR@0900 #6 02/12/23 subcutaneous pen injector mL (Trulicity) lisinopril 5 mg tablet 5 mg PO DAILY #90 tabs 03/03/23 Allergies Allergy/AdvReac Type Severity Reaction Status Date / Time No Known Allergies Allergy Mild NOT Verified 02/06/23 11:12 APPLICABLE Review of Systems Review of Systems: Yes all other systems are reviewed and are negative [facility] Past Medical History Medical History Centrilobular emphysema Chronic bronchitis COPD (chronic obstructive pulmonary disease) Essential hypertension Hyperlipidemia LDL goal <70 Multiple pulmonary nodules Schizophrenia Smoker Type 2 diabetes mellitus with diabetic polyneuropathy Family History Family History Father Prostate cancer Diabetes Mother Diabetes Hypertension CVD (cardiovascular disease) Social History Social History Household Members: Other Housing: Other Housing Other:: [facility] Do you presently have visiting nurse or other home services: Yes Unable to assess alcohol history related to: Refusing to respond Alcohol intake: current Alcohol intake frequency: does not drink Patient Tobacco Use Status: Current everyday Tobacco user Tobacco use type: Cigarette Cigarette Packs Per Day: 1 Cigarettes Per Day: 20.0 Years Smoked: 40 Advance Directives: Yes Advance Directives on File: Yes Advance Directives Date on File: 10/25/22 service: No Current occupational status: disabled Cognitive needs: No Hearing needs: No Vision needs: No Physical Exam Vital Signs: Vital Signs: Last Vital Signs Temp 98.2 F 03/04/23 19:40 Pulse 69 03/04/23 19:40 Resp 28 H 03/04/23 19:40 BP 139/70 03/04/23 19:40 Pulse Ox 98 03/04/23 19:40 O2 Del Method Room Air 03/04/23 19:40 BMI result Body Mass Index 28.5 Appearance: Alert. Oriented X3. No acute distress. ENT: Pharynx normal. Oral Mucosa moist Neck: Normal inspection. Neck supple. CVS: Normal heart rate and rhythm. Pulses normal. Respiratory: No respiratory distress. Equal air entry bilateral, prolonged expiration Abdomen: Soft and nontender. Bowel sounds are present, no mass palpable, no CVA tenderness Skin: Skin warm and dry. Normal skin color. Normal skin turgor. Extremities: No lower extremity edema. No calf tenderness Neuro: Oriented X 3. No motor deficit. Medical Decision Making Medical Decision Making [facility] Narrative: His chest x-ray negative for any 3 acute chest pain happened after patient cough likely pleuritic at this time patient does not have any chest pain will discharge patient home Lab Data [facility] Lab Attestation statement: I reviewed the patient's lab results. 03/04/23 19:49 03/04/23 19:49 Labs: Lab Results 03/04/23 03/04/23 03/04/23 Range/Units 19:49 19:49 19:49 WBC 6.6 (4.8-10.8) X10*3/uL RBC 3.57 L (4.60-5.80) X10*6/uL Hgb 10.1 L (14.0-18.0) g/dl Hct 29.4 L (42.0-52.0) % MCV 82.4 (80.0-98.0) fL MCH 28.3 (27.0-33.0) pg MCHC 34.4 (31.0-36.0) g/dl RDW 12.7 (11.0-16.0) % Plt Count 148 L (160-400) X10*3/uL MPV 9.6 (9.4-12.4) fL Immature Gran % (Auto) 0.6 H (0.0-0.4) % Neut % (Auto) 48.6 (45-73) % Lymph % (Auto) 29.1 (20-40) % Clark % (Auto) 14.1 H (2-11) % Eos % (Auto) 7.0 H (0-4) % Baso % (Auto) 0.6 (0-2) % Lymph # (Auto) 1.9 (1.2-4.9) X10*3/uL Clark # (Auto) 0.9 (0.1-1.2) X10*3/uL Eos # (Auto) 0.5 H (0.0-0.4) X10*3/uL Baso # (Auto) 0.0 (0.0-0.2) X10*3/uL Abs Immat Gran (auto) 0.04 H (0.00-0.03) X10*3/uL Absolute Neuts (auto) 3.2 (2.0-8.3) x10*3/uL Absolute Nucleated RBC 0.000 (0.0-0.012) X10*3/uL Nucleated RBC % (auto) 0.0 (0.0-0.2) /100WBC Sodium 124 L (135-145) mmol/L Potassium 4.0 (3.3-5.1) mmol/L Chloride 92 L (96-108) mmol/L Carbon Dioxide 21 L (22-29) mmol/L Anion Gap 15 (12-20) BUN 13 (9-16) mg/dL Creatinine 1.11 (0.5-1.4) mg/dL Estim Creat Clear Calc 63.3 Estimated GFR > 60 Random Glucose 143 H (60-115) mg/dL Calcium 9.1 (8.4-10.2) mg/dL Troponin I High Sens 3.8 (<3.5-35.0) ng/L Independent Interpretation I performed an independent interpretation of an: EKG Interpretation: Normal sinus rhythm heart rate 68 beats per minute normal intervals normal axis no acute ST-T changes no acute ischemia Discharge Plan Discharge Clinical Impression: Atypical chest pain Patient Disposition: Home, Self-Care Instructions: Chest Wall Pain (ED) Additional Instructions: Stop smoking and follow with PCP if any concerns Prescriptions: No Action (DME) blood-glucose meter [FreeStyle Lite Meter] Kit See Rx Instructions .ROUTE .MEDSUPPLY Qty: 1 0RF Rx Instructions: As directed insulin degludec [Tresiba FlexTouch U-100] 100 unit/mL (3 mL) insulin pen 10 unit subcut DAILY Qty: 15 1RF magnesium hydroxide [Milk of Magnesia] 400 mg/5 mL suspension 5 ml PO BEDTIME PRN (Reason: for severe constipation only) Qty: 355 0RF (DME) FreeStyle Lite Strips Strip See Rx Instructions .Route Qty: 100 6RF Rx Instructions: Use to check blood sugar three times daily (DME) pen needle, diabetic [BD Ultra-Fine Mini Pen Needle] 31 gauge x 3/16 needle See Rx Instructions subcut TID Qty: 100 1RF Rx Instructions: As directed to inject insulin daily albuterol sulfate 90 mcg/actuation aerosol powdr breath activated 2 inh inhalation Q4-6H PRN (Reason: shortness of breath or wheezing) Qty: 1 2RF docusate sodium 100 mg capsule 100 mg PO DAILY PRN (Reason: constipation) Qty: 30 6RF sennosides 8.6 mg tablet 17.2 mg PO DAILY PRN (Reason: constipation) Qty: 60 2RF amlodipine 10 mg tablet 10 mg PO DAILY 90 Days Qty: 90 1RF aspirin [Adult Low Dose Aspirin] 81 mg tablet,delayed release (DR/EC) 81 mg PO DAILY Qty: 90 1RF omeprazole 20 mg capsule,delayed release(DR/EC) 20 mg PO BID 30 Days Qty: 60 3RF acetaminophen [Tylenol 8 Hour] 650 mg tablet extended release 650 mg PO Q6H PRN (Reason: pain) 30 Days Qty: 120 0RF Trulicity 0.75 mg/0.5 mL pen injector 0.75 mg subcut FR@0900 Qty: 6 1RF lisinopril 5 mg tablet 5 mg PO DAILY Qty: 90 1RF propranolol 20 mg tablet 1 tab PO BEDTIME cholecalciferol (vitamin D3) 125 mcg (5,000 unit) capsule 125 mcg PO BEDTIME azithromycin 250 mg tablet 250 mg PO MOWEFR@0900 Rx Instructions: Take 1 tablet on Friday/Friday/Friday prednisone 20 mg tablet 20 mg PO ONCE Rx Instructions: END DATE: 02/15/23 propranolol 20 mg tablet 10 mg PO DAILY atorvastatin 10 mg tablet 10 mg PO BEDTIME benztropine 2 mg tablet 2 mg PO BID gabapentin 300 mg capsule 300 mg PO TID fluphenazine HCl 5 mg tablet 5 mg PO BID olanzapine 10 mg tablet 10 mg PO BID vitamin E 1,150 unit/1.25 mL liquid 1,000 unit PO DAILY divalproex 500 mg tablet extended release 24 hr 1,500 mg PO BEDTIME ipratropium-albuterol 0.5 mg-3 mg(2.5 mg base)/3 mL solution for nebulization 3 ml inhalation BID 30 Days Qty: 180 11RF Trelegy Ellipta 100-62.5-25 mcg blister with device 1 inh inhalation DAILY 30 Days Qty: 60 11RF
[2023-03-04 20:08] LABS: Basophils Percent Auto 0.6 % (0-2); Eosinophils Absolute Auto 0.5 X10*3/uL (0.0-0.4); Hematocrit 29.4 % (42.0-52.0); Hemoglobin 10.1 g/dl (14.0-18.0); Imm Gran Abs Auto 0.04 X10*3/uL (0.00-0.03); Imm Gran Pct Auto 0.6 % (0.0-0.4); Lymphocytes Absolute Auto 1.9 X10*3/uL (1.2-4.9); Lymphocytes Percent Auto 29.1 % (20-40); Mean Corpuscular HGB Conc 34.4 g/dl (31.0-36.0); Mean Corpuscular Hemoglobin 28.3 pg (27.0-33.0); Mean Corpuscular Volume 82.4 fL (80.0-98.0); Mean Platelet Volume 9.6 fL (9.4-12.4); Monocytes Absolute Auto 0.9 X10*3/uL (0.1-1.2); Monocytes Percent Auto 14.1 % (2-11); Neutrophils Absolute Auto 3.2 x10*3/uL (2.0-8.3); Neutrophils Percent Auto 48.6 % (45-73); Platelet Count 148 X10*3/uL (160-400); Red Blood Count 3.57 X10*6/uL (4.60-5.80); Red Cell Distribution Width 12.7 % (11.0-16.0); White Blood Count 6.6 X10*3/uL (4.8-10.8)
[2023-03-04 20:10] LABS: Anion Gap 15 (12-20); Blood Urea Nitrogen 13 mg/dL (9-16); Calcium 9.1 mg/dL (8.4-10.2); Carbon Dioxide 21 mmol/L (22-29); Chloride 92 mmol/L (96-108); Creatinine Clr Calc Pharmacy 63.3; Estimated Glomerular Filt Rate > 60; Glucose Random 143 mg/dL (60-115); Sodium 124 mmol/L (135-145)
[2023-03-04 20:18] LABS: Troponin-I High Sensitivity 3.8 ng/L (<3.5-35.0)
[2023-03-04 21:31] VITALS: BP 139/75; PULSE 69; RESP 25; O2SAT 94
--- NOTE | 2023-03-04 22:00 | PC.NURSE ---
[facility] called for ride back to [facility]. awaiting ambulance for transport
== END 2023-03-04 23:10 | disposition home or self-care (01) ==
PROVIDERS: Emergency Provider Internal Medicine
DX: R07.89 Other chest pain (principal); E11.9 Type 2 diabetes mellitus without complications; I10 Essential (primary) hypertension; E78.5 Hyperlipidemia, unspecified; J44.9 Chronic obstructive pulmonary disease, unspecified; F17.210 Nicotine dependence, cigarettes, uncomplicated; Z87.01 Personal history of pneumonia (recurrent); Z79.4 Long term (current) use of insulin; Z79.899 Other long term (current) drug therapy; Z79.82 Long term (current) use of aspirin; Z71.6 Tobacco abuse counseling
CPT/HCPCS: 36415; 71045; 80048; 84484; 85025; 93005; 99284

== ENCOUNTER → 2023-03-04 19:38 | Outpatient (BNV) | payer MEDICARE, MEDICAID, SELFPAY | PROVIDERS: Emergency Provider Internal Medicine; Visit Provider Internal Medicine | DX: R94.31 Abnormal electrocardiogram [ECG] [EKG] (principal) | CPT/HCPCS: 93010 ==

== ENCOUNTER 2023-04-02 17:37 | Emergency (ER) | payer MEDICARE, MEDICAID, SELFPAY ==
--- NOTE | ~2023-04-02 | XR_ITS ---
EXAMINATION: XR CHEST CLINICAL INFORMATION: Chest pain COMPARISON: Previous chest x-ray most recent 03/04/2023 TECHNIQUE: 2 views of the chest were obtained. FINDINGS: The cardiac and mediastinal contours are stable. There is scarring or chronic subsegmental atelectasis the right lung base similar to previous exam. The lungs are otherwise clear. No pleural effusion or pneumothorax. Curvature of the lower thoracic spine to the right and degenerative changes. XR/XR chest 2V IMPRESSION: Scarring or chronic subsegmental atelectasis at the right lung base similar to previous exam.
[2023-04-02 17:40] VITALS: BMI 23.1
[2023-04-02 17:43] VITALS: BP 120/74; PULSE 70; O2SAT 99
--- NOTE | 2023-04-02 17:45 | ECG_ITS ---
Test Reason : CHEST PAIN Blood Pressure : / mmHG Vent. Rate : 082 BPM Atrial Rate : 082 BPM P-R Int : 156 ms QRS Dur : 092 ms QT Int : 364 ms P-R-T Axes : 071 010 044 degrees QTc Int : 425 ms Normal sinus rhythm Normal ECG When compared with ECG of 04-MAR-2023 19:39, No significant change was found Referred By: Generic ED Physician Electronically Signed By:CLIVE MANN
--- NOTE | 2023-04-02 17:56 | ED.CHESTPAIN ---
HPI - Chest Pain General Chief Complaint: Chest Pain Stated Complaint: Chest pain, elevated glucose per ems Time Seen by Provider: 04/02/23 17:52 Source: patient Mode of arrival: EMS Limitations: no limitations History of Present Illness HPI narrative: Patient is a 60-year-old male who presents emergency department via EMS coming from a long term today for evaluation of chest pain. Reports onset of mid chest pain since this morning, nonradiating. Is unable to describe the quality nor identify exacerbating or alleviating factors of the pain. Has been present constantly with variable intensity. He does endorse having a cough and some shortness of breath though this is significantly improved from his baseline since he was recently started on an inhaler and a breathing machine by his report. He denies fevers, chills, neck pain, dizziness, nausea, vomiting, abdominal pain, numbness or tingling of the extremities. Related Data Home Medications Medication Instructions Recorded Confirmed benztropine 2 mg tablet 2 mg PO BID 11/22/20 02/15/23 divalproex 500 mg tablet,extended 1,500 mg PO BEDTIME 07/16/21 02/15/23 release 24 hr olanzapine 10 mg tablet 10 mg PO BID 07/16/21 02/15/23 fluphenazine HCl 5 mg tablet 5 mg PO BID 11/26/21 02/15/23 gabapentin 300 mg capsule 300 mg PO TID 11/26/21 02/15/23 propranolol 20 mg tablet 1 tab PO BEDTIME 08/18/22 02/15/23 vitamin E 1,150 unit/1.25 mL oral 1,000 unit PO DAILY 01/28/23 02/15/23 liquid azithromycin 250 mg tablet 250 mg PO MOWEFR@0900 02/15/23 02/15/23 cholecalciferol (vitamin D3) 125 125 mcg PO BEDTIME 02/15/23 02/15/23 mcg (5,000 unit) capsule prednisone 20 mg tablet 20 mg PO ONCE 02/15/23 02/15/23 propranolol 20 mg tablet 10 mg PO DAILY 02/15/23 02/15/23 Previous Rx's Medication Instructions Recorded blood-glucose meter (FreeStyle #1 ea 05/24/21 Lite Meter kit) magnesium hydroxide 400 mg/5 mL 5 ml PO BEDTIME PRN for severe 09/05/22 oral suspension (Milk of Magnesia) constipation only #355 mL blood sugar diagnostic (FreeStyle #100 ea 09/23/22 Lite Strips) docusate sodium 100 mg capsule 100 mg PO DAILY PRN constipation 12/05/22 #30 caps sennosides 8.6 mg tablet 17.2 mg PO DAILY PRN constipation 12/05/22 #60 tabs amlodipine 10 mg tablet 10 mg PO DAILY 90 days #90 tabs 01/03/23 aspirin 81 mg tablet,delayed 81 mg PO DAILY #90 tabs 01/08/23 release (Adult Low Dose Aspirin) acetaminophen 650 mg 650 mg PO Q6H PRN pain 30 days 01/30/23 tablet,extended release (Tylenol 8 #120 tabs Hour) fluticasone fur. 100 mcg-umeclid 1 inh inhalation DAILY 30 days #60 02/06/23 62.5 mcg-vilant 25 mcg ea inhalat.powder (Trelegy Ellipta) ipratropium 0.5 mg-albuterol 3 mg 3 ml inhalation BID 30 days #180 mL 02/06/23 (2.5 mg base)/3 mL nebulization soln dulaglutide 0.75 mg/0.5 mL 0.75 mg (0.5 mL) subcut FR@0900 #6 02/12/23 subcutaneous pen injector mL (Trulicity) lisinopril 5 mg tablet 5 mg PO DAILY #90 tabs 03/03/23 insulin degludec 100 unit/mL (3 10 unit (0.1 mL) subcut DAILY #15 03/05/23 mL) subcutaneous pen (Tresiba mL FlexTouch U-100 insulin) omeprazole 20 mg capsule,delayed 20 mg PO BID #180 caps 03/21/23 release albuterol sulfate 90 mcg/actuation 2 inh inhalation Q4-6H PRN 03/24/23 breath activated powder inhaler shortness of breath or wheezing #1 ea atorvastatin 10 mg tablet 10 mg PO BEDTIME #90 tabs 03/27/23 pen needle, diabetic 31 gauge x #100 ea 03/27/23 3/16 (BD Ultra-Fine Mini Pen Needle) Allergies Allergy/AdvReac Type Severity Reaction Status Date / Time No Known Allergies Allergy Mild NOT Verified 02/06/23 11:12 APPLICABLE Review of Systems Review of Systems: Constitutional : No Weight loss, No Fever, No Chills ENT/Mouth :? No sore throat, No Rhinorrhea Eyes: No Eye Pain, No Swelling Cardiovascular : pos Chest Pain, pos SOB, no Dyspnea on Exertion, No Orthopnea, No Edema, No Palpitations Respiratory : Positive Cough, No Sputum Gastrointestinal : No Nausea, No Vomiting, No Diarrhea, No abdominal Pain, No Hematochezia, No Melena Genitourinary : No Dysuria, No Urinary Frequency Musculoskeletal : No joint pain, No Myalgias, No Joint Swelling Skin : No Skin Lesions, No rash Neuro : No Weakness, No Numbness, No Dizziness, No Headache Psych : No Anxiety/Panic, No Depression Heme/Lymph: No Bruising, No Lymphadenopathy Endocrine : No Polyuria, No Polydipsia ? Yes all other systems are reviewed and are negative PMFSH Past Medical History Attestation statement: The following information was validated with the patient. Source: old records reviewed Medical History Centrilobular emphysema Chronic bronchitis COPD (chronic obstructive pulmonary disease) Essential hypertension Hyperlipidemia LDL goal <70 Multiple pulmonary nodules Schizophrenia Smoker Type 2 diabetes mellitus with diabetic polyneuropathy Family History Family History Father Prostate cancer Diabetes Mother Diabetes Hypertension CVD (cardiovascular disease) Social History Social History Household Members: Other Housing: Other Housing Other:: half-way Do you presently have visiting nurse or other home services: Yes Unable to assess alcohol history related to: Refusing to respond Alcohol intake: unknown Patient Tobacco Use Status: Current everyday Tobacco user Tobacco use type: Cigarette Cigarette Packs Per Day: 1 Cigarettes Per Day: 20.0 Years Smoked: 40 Advance Directives: Yes Advance Directives on File: Yes Advance Directives Date on File: 10/25/22 service: No Current occupational status: disabled Cognitive needs: No Hearing needs: No Vision needs: No Physical Exam Vital Signs: Vital Signs: Last Vital Signs Temp 97.8 F 04/02/23 19:04 Pulse 74 04/02/23 19:04 Resp 20 04/02/23 19:04 BP 124/68 04/02/23 19:04 Pulse Ox 96 04/02/23 19:04 O2 Del Method Room Air 04/02/23 19:04 BMI result Body Mass Index 23.1 Appearance: Alert.?Oriented to person, place and time. No acute distress.?Normal affect. Eyes: Pupils equal, round and reactive to light.? ENT: Pharynx normal.?? Neck: Normal inspection.? Neck supple.?? CVS: Heart sounds normal. Normal heart rate and rhythm.? Pulses normal.?? Respiratory: No respiratory distress.? Lung sounds clear to auscultation bilaterally, prolonged expiration?? Abdomen: Soft and non-tender. Normoactive bowel sounds. Skin: Skin warm and dry.? Normal skin color.? Extremities: No lower extremity edema.? No calf ttp? Neuro: Moves all extremities spontaneously. No motor deficit. Ambulates with normal steady gait. Course Reevaluation(s) Reevaluation #1: CBC reveals no leukocytosis, baseline normocytic anemia not meeting transfusion criteria no active bleeding. Chronic hyponatremia with sodium of 130 which is actually better than his typical baseline. Troponin <2.7, EKG revealing normal sinus rhythm without acute ischemic findings. Low suspicion at this time for ACS. Chest x-ray revealing COVID pneumonia, pleural effusion, or pneumothorax. Most consistent with atypical chest pain. COVID-19 testing is negative. Medical Decision Making Medical Decision Making [facility] [place] Narrative: patient is a 68-year-old male with past medical history of COPD, SIADH, hyponatremia, CAD, hypertension, hyperlipidemia, schizophrenia, type 2 diabetes?presenting to emergency department for evaluation of chest pain. At the time my evaluation he is overall well-appearing, nontoxic. He is speaking clear full sentences. Will obtain CBC to evaluate for leukocytosis/ anemia, CMP and lipase to evaluate for abnormal electrolytes /abnormal renal function/ abnormal hepatic/biliary function, EKG and troponin to evaluate for ischemia/ACS. Chest x-ray to evaluate for consolidation/ infiltrate/ mass/ pulmonary congestion and Urinalysis. Differential Diagnosis Differential Diagnoses: The differential diagnosis associated with the presentation includes (ACS, pneumonia, pneumothorax, muscular pain, COPD exacerbation) Admission/Observation Consideration of admission/observation: Escalation of care including admission/observation considered (I considered admission for chest pain, see course narrative for further detail) Lab Data [facility] [place] Lab Attestation statement: I reviewed the patient's lab results. (See course narrative for further detail) 04/02/23 18:11 04/02/23 18:11 Labs: Lab Results 04/02/23 04/02/23 04/02/23 Range/Units 18:11 18:11 18:11 WBC 7.2 (4.8-10.8) X10*3/uL RBC 3.44 L (4.60-5.80) X10*6/uL Hgb 9.6 L (14.0-18.0) g/dl Hct 29.0 L (42.0-52.0) % MCV 84.3 (80.0-98.0) fL MCH 27.9 (27.0-33.0) pg MCHC 33.1 (31.0-36.0) g/dl RDW 14.1 (11.0-16.0) % Plt Count 176 (160-400) X10*3/uL MPV 10.4 (9.4-12.4) fL Immature Gran % (Auto) 0.6 H (0.0-0.4) % Neut % (Auto) 47.5 (45-73) % Lymph % (Auto) 31.3 (20-40) % [place] % (Auto) 12.9 H (2-11) % Eos % (Auto) 7.1 H (0-4) % Baso % (Auto) 0.6 (0-2) % Lymph # (Auto) 2.3 (1.2-4.9) X10*3/uL [place] # (Auto) 0.9 (0.1-1.2) X10*3/uL Eos # (Auto) 0.5 H (0.0-0.4) X10*3/uL Baso # (Auto) 0.0 (0.0-0.2) X10*3/uL Abs Immat Gran (auto) 0.04 H (0.00-0.03) X10*3/uL Absolute Neuts (auto) 3.4 (2.0-8.3) x10*3/uL Absolute Nucleated RBC 0.000 (0.0-0.012) X10*3/uL Nucleated RBC % (auto) 0.0 (0.0-0.2) /100WBC PT (11.1-13.3) SEC INR (0.9-1.1) Sodium 130 L (135-145) mmol/L Potassium 3.9 (3.3-5.1) mmol/L Chloride 99 (96-108) mmol/L Carbon Dioxide 25 (22-29) mmol/L Anion Gap 10 L (12-20) BUN 12 (9-16) mg/dL Creatinine 1.08 (0.5-1.4) mg/dL Estim Creat Clear Calc 71.3 Estimated GFR > 60 Random Glucose 233 H (60-115) mg/dL Calcium 8.8 (8.4-10.2) mg/dL Total Bilirubin (0.0-1.0) mg/dL Direct Bilirubin (0.0-0.5) mg/dL AST (5-37) U/L ALT (0-40) U/L Alkaline Phosphatase (39-117) U/L Troponin I High Sens < 2.7 (<3.5-35.0) ng/L Total Protein (6.5-8.0) g/dL Albumin (3.5-5.0) g/dL Lipase (8-78) U/L COVID-19 (LA) (Negative) COVID-19 Clin Com 04/02/23 04/02/23 04/02/23 Range/Units 18:11 18:11 19:03 WBC (4.8-10.8) X10*3/uL RBC (4.60-5.80) X10*6/uL Hgb (14.0-18.0) g/dl Hct (42.0-52.0) % MCV (80.0-98.0) fL MCH (27.0-33.0) pg MCHC (31.0-36.0) g/dl RDW (11.0-16.0) % Plt Count (160-400) X10*3/uL MPV (9.4-12.4) fL Immature Gran % (Auto) (0.0-0.4) % Neut % (Auto) (45-73) % Lymph % (Auto) (20-40) % [place] % (Auto) (2-11) % Eos % (Auto) (0-4) % Baso % (Auto) (0-2) % Lymph # (Auto) (1.2-4.9) X10*3/uL [place] # (Auto) (0.1-1.2) X10*3/uL Eos # (Auto) (0.0-0.4) X10*3/uL Baso # (Auto) (0.0-0.2) X10*3/uL Abs Immat Gran (auto) (0.00-0.03) X10*3/uL Absolute Neuts (auto) (2.0-8.3) x10*3/uL Absolute Nucleated RBC (0.0-0.012) X10*3/uL Nucleated RBC % (auto) (0.0-0.2) /100WBC PT 11.9 (11.1-13.3) SEC INR 1.0 (0.9-1.1) Sodium (135-145) mmol/L Potassium (3.3-5.1) mmol/L Chloride (96-108) mmol/L Carbon Dioxide (22-29) mmol/L Anion Gap (12-20) BUN (9-16) mg/dL Creatinine (0.5-1.4) mg/dL Estim Creat Clear Calc Estimated GFR Random Glucose (60-115) mg/dL Calcium (8.4-10.2) mg/dL Total Bilirubin 0.2 (0.0-1.0) mg/dL Direct Bilirubin < 0.2 (0.0-0.5) mg/dL AST 13 (5-37) U/L ALT 9 (0-40) U/L Alkaline Phosphatase 53 (39-117) U/L Troponin I High Sens (<3.5-35.0) ng/L Total Protein 6.5 (6.5-8.0) g/dL Albumin 3.2 L (3.5-5.0) g/dL Lipase 22 (8-78) U/L COVID-19 (LA) Negative (Negative) COVID-19 Clin Com See Note Independent Interpretation I performed an independent interpretation of an: EKG and Plain X-Ray (I personally interpreted chest x-ray and agree with radiologist impression, no evidence of pneumonia, or pneumothorax.) Interpretation: Rate: 82 Rhythm:? Normal sinus rhythm [place]:? Normal Normal P waves.? Normal JOHN.?? Normal QRS complex.?? ST T wave :??No ST elevation, no ST depression, no T-wave inversion qTC: 425 prior studies:? March 2023 The study has been interpreted contemporaneously by me. Radiology Impression Discussion of test interpretation with radiology: I have reviewed the radiologist's reading. Radiologist Impression: XR/XR chest 2V IMPRESSION: Scarring or chronic subsegmental atelectasis at the right lung base similar to previous exam. Independent Historian Clinical information obtained from an independent historian. History obtained from or confirmed by: EMS External Record Review External record reviewed: Outpatient record Discharge Plan Discharge Clinical Impression: Atypical chest pain Patient Disposition: Home, Self-Care Instructions: Chest Pain (ED) Additional Instructions: Follow-up with your primary care provider regarding chest pain within 1-3 days. Return back to emergency department any new or worsening symptoms or concerns. Prescriptions: No Action (DME) blood-glucose meter [FreeStyle Lite Meter] Kit See Rx Instructions .ROUTE .MEDSUPPLY Qty: 1 0RF Rx Instructions: As directed magnesium hydroxide [Milk of Magnesia] 400 mg/5 mL suspension 5 ml PO BEDTIME PRN (Reason: for severe constipation only) Qty: 355 0RF (DME) FreeStyle Lite Strips Strip See Rx Instructions .Route Qty: 100 6RF Rx Instructions: Use to check blood sugar three times daily docusate sodium 100 mg capsule 100 mg PO DAILY PRN (Reason: constipation) Qty: 30 6RF sennosides 8.6 mg tablet 17.2 mg PO DAILY PRN (Reason: constipation) Qty: 60 2RF amlodipine 10 mg tablet 10 mg PO DAILY 90 Days Qty: 90 1RF aspirin [Adult Low Dose Aspirin] 81 mg tablet,delayed release (DR/EC) 81 mg PO DAILY Qty: 90 1RF acetaminophen [Tylenol 8 Hour] 650 mg tablet extended release 650 mg PO Q6H PRN (Reason: pain) 30 Days Qty: 120 0RF Trulicity 0.75 mg/0.5 mL pen injector 0.75 mg subcut FR@0900 Qty: 6 1RF lisinopril 5 mg tablet 5 mg PO DAILY Qty: 90 1RF insulin degludec [Tresiba FlexTouch U-100] 100 unit/mL (3 mL) insulin pen 10 unit subcut DAILY Qty: 15 1RF omeprazole 20 mg capsule,delayed release(DR/EC) 20 mg PO BID Qty: 180 1RF albuterol sulfate 90 mcg/actuation aerosol powdr breath activated 2 inh inhalation Q4-6H PRN (Reason: shortness of breath or wheezing) Qty: 1 2RF (DME) pen needle, diabetic [BD Ultra-Fine Mini Pen Needle] 31 gauge x 3/16 needle See Rx Instructions subcut TID Qty: 100 1RF Rx Instructions: As directed to inject insulin daily atorvastatin 10 mg tablet 10 mg PO BEDTIME Qty: 90 1RF propranolol 20 mg tablet 1 tab PO BEDTIME cholecalciferol (vitamin D3) 125 mcg (5,000 unit) capsule 125 mcg PO BEDTIME azithromycin 250 mg tablet 250 mg PO MOWEFR@0900 Rx Instructions: Take 1 tablet on Friday/Friday/Friday prednisone 20 mg tablet 20 mg PO ONCE Rx Instructions: END DATE: 02/15/23 propranolol 20 mg tablet 10 mg PO DAILY benztropine 2 mg tablet 2 mg PO BID gabapentin 300 mg capsule 300 mg PO TID fluphenazine HCl 5 mg tablet 5 mg PO BID olanzapine 10 mg tablet 10 mg PO BID vitamin E 1,150 unit/1.25 mL liquid 1,000 unit PO DAILY divalproex 500 mg tablet extended release 24 hr 1,500 mg PO BEDTIME ipratropium-albuterol 0.5 mg-3 mg(2.5 mg base)/3 mL solution for nebulization 3 ml inhalation BID 30 Days Qty: 180 11RF Trelegy Ellipta 100-62.5-25 mcg blister with device 1 inh inhalation DAILY 30 Days Qty: 60 11RF Referrals: Physician,Unknown J [Primary Care Provider] -
[2023-04-02 18:16] LABS: MANUAL DIFF FLAG NO
[2023-04-02 18:31] LABS: Basophils Percent Auto 0.6 % (0-2); Eosinophils Absolute Auto 0.5 X10*3/uL (0.0-0.4); Eosinophils Percent Auto 7.1 % (0-4); Hemoglobin 9.6 g/dl (14.0-18.0); Imm Gran Abs Auto 0.04 X10*3/uL (0.00-0.03); Imm Gran Pct Auto 0.6 % (0.0-0.4); Lymphocytes Absolute Auto 2.3 X10*3/uL (1.2-4.9); Lymphocytes Percent Auto 31.3 % (20-40); Mean Corpuscular HGB Conc 33.1 g/dl (31.0-36.0); Mean Corpuscular Hemoglobin 27.9 pg (27.0-33.0); Mean Corpuscular Volume 84.3 fL (80.0-98.0); Mean Platelet Volume 10.4 fL (9.4-12.4); Monocytes Absolute Auto 0.9 X10*3/uL (0.1-1.2); Monocytes Percent Auto 12.9 % (2-11); Neutrophils Absolute Auto 3.4 x10*3/uL (2.0-8.3); Neutrophils Percent Auto 47.5 % (45-73); Platelet Count 176 X10*3/uL (160-400); Red Blood Count 3.44 X10*6/uL (4.60-5.80); Red Cell Distribution Width 14.1 % (11.0-16.0); White Blood Count 7.2 X10*3/uL (4.8-10.8)
[2023-04-02 18:37] LABS: Prothrombin Time 11.9 SEC (11.1-13.3)
[2023-04-02 18:41] LABS: Anion Gap 10 (12-20); Blood Urea Nitrogen 12 mg/dL (9-16); Calcium 8.8 mg/dL (8.4-10.2); Carbon Dioxide 25 mmol/L (22-29); Chloride 99 mmol/L (96-108); Creatinine Clr Calc Pharmacy 71.3; Estimated Glomerular Filt Rate > 60; Glucose Random 233 mg/dL (60-115); Potassium 3.9 mmol/L (3.3-5.1); Sodium 130 mmol/L (135-145)
[2023-04-02 18:49] LABS: Troponin-I High Sensitivity < 2.7 ng/L (<3.5-35.0)
[2023-04-02 19:04] VITALS: BP 124/68; PULSE 74; RESP 20; TEMP 36.6; O2SAT 96
[2023-04-02 19:32] LABS: Alanine Aminotransferase 9 U/L (0-40); Albumin Level 3.2 g/dL (3.5-5.0); Alkaline Phosphatase 53 U/L (39-117); Aspartate Amino Transferase 13 U/L (5-37); Bilirubin Direct < 0.2 mg/dL (0.0-0.5); Bilirubin Total 0.2 mg/dL (0.0-1.0); Lipase 22 U/L (8-78); Total Protein 6.5 g/dL (6.5-8.0)
[2023-04-02 20:03] LABS: COVID-19 Test Negative (Negative); IDNOW Serial# 6674DD1D
[2023-04-02 21:00] VITALS: BP 130/73; PULSE 78; RESP 20; TEMP 36.6; O2SAT 97
--- NOTE | 2023-04-02 21:46 | PC.NURSE ---
Called on site facility [facility] [phone] requesting call back for patient brain picker.
== END 2023-04-02 21:30 | disposition home or self-care (01) ==
PROVIDERS: Nurse Practitioner Family; Emergency Provider Emergency Medicine
DX: R07.89 Other chest pain (principal); Z20.822 Contact with and (suspected) exposure to COVID-19; I10 Essential (primary) hypertension; E11.9 Type 2 diabetes mellitus without complications; Z79.4 Long term (current) use of insulin; Z79.899 Other long term (current) drug therapy; E78.5 Hyperlipidemia, unspecified
CPT/HCPCS: 36415; 71046; 80048; 80076; 83690; 84484; 85025; 85610; 87635; 93005; 99283; 99284

== ENCOUNTER 2023-04-17 17:50 | Emergency (ER) | payer MEDICARE, MEDICAID, SELFPAY ==
--- NOTE | ~2023-04-17 | XR_ITS ---
EXAMINATION: PORTABLE CHEST 1 VIEW CLINICAL INFORMATION: chronic cough. COMPARISON: 04/02/2023. TECHNIQUE: Portable frontal view of the chest was obtained. FINDINGS: The lungs are well expanded. Mild chronic appearing coarsened reticular markings are again seen similar to the prior study but no superimposed focal infiltrate, effusion, edema, or pneumothorax. Cardiac and mediastinal silhouettes are within normal limits for technique. No acute bony abnormality seen. Degenerative changes in the spine and shoulders. XR/XR chest 1V IMPRESSION: Chronic appearing changes similar to the prior study without acute superimposed process.
[2023-04-17 17:57] VITALS: BP 142/74; BP 159/83; PULSE 77; PULSE 91; RESP 18; TEMP 36.8; O2SAT 99; BMI 24.4
--- NOTE | 2023-04-17 18:02 | ED_ITS ---
HPI - URI/Sore Throat General Chief Complaint: Upper Respiratory Symptoms Stated Complaint: COUGH Time Seen by Provider: 04/17/23 18:02 Source: patient Mode of arrival: ambulatory Limitations: no limitations History of Present Illness HPI Narrative: Patient is 68 years old active smoker COPD with persistent endobronchial densities unlikely malignant but no bronchoscopy done comes in for persistent cough which is going on for last few months patient was seen by outpatient phlebotomist on 02/23 [facility] Also complaining of upper abdominal and left chest pain no fever no chills complaining of vision problem as he did not have any cataract surgery sleeping and resting comfortably Related Data Home Medications Medication Instructions Recorded Confirmed benztropine 2 mg tablet 2 mg PO BID 11/22/20 02/15/23 divalproex 500 mg tablet,extended 1,500 mg PO BEDTIME 07/16/21 02/15/23 release 24 hr olanzapine 10 mg tablet 10 mg PO BID 07/16/21 02/15/23 fluphenazine HCl 5 mg tablet 5 mg PO BID 11/26/21 02/15/23 gabapentin 300 mg capsule 300 mg PO TID 11/26/21 02/15/23 propranolol 20 mg tablet 1 tab PO BEDTIME 08/18/22 02/15/23 vitamin E 1,150 unit/1.25 mL oral 1,000 unit PO DAILY 01/28/23 02/15/23 liquid azithromycin 250 mg tablet 250 mg PO MOWEFR@0900 02/15/23 02/15/23 cholecalciferol (vitamin D3) 125 125 mcg PO BEDTIME 02/15/23 02/15/23 mcg (5,000 unit) capsule prednisone 20 mg tablet 20 mg PO ONCE 02/15/23 02/15/23 propranolol 20 mg tablet 10 mg PO DAILY 02/15/23 02/15/23 Previous Rx's Medication Instructions Recorded blood-glucose meter (FreeStyle #1 ea 05/24/21 Lite Meter kit) magnesium hydroxide 400 mg/5 mL 5 ml PO BEDTIME PRN for severe 09/05/22 oral suspension (Milk of Magnesia) constipation only #355 mL blood sugar diagnostic (FreeStyle #100 ea 09/23/22 Lite Strips) docusate sodium 100 mg capsule 100 mg PO DAILY PRN constipation 12/05/22 #30 caps sennosides 8.6 mg tablet 17.2 mg (2 x 8.6 mg) PO DAILY PRN 12/05/22 constipation #60 tabs amlodipine 10 mg tablet 10 mg PO DAILY 90 days #90 tabs 01/03/23 aspirin 81 mg tablet,delayed 81 mg PO DAILY #90 tabs 01/08/23 release (Adult Low Dose Aspirin) acetaminophen 650 mg 650 mg PO Q6H PRN pain 30 days 01/30/23 tablet,extended release (Tylenol 8 #120 tabs Hour) fluticasone fur. 100 mcg-umeclid 1 inh inhalation DAILY 30 days #60 02/06/23 62.5 mcg-vilant 25 mcg ea inhalat.powder (Trelegy Ellipta) ipratropium 0.5 mg-albuterol 3 mg 3 ml inhalation BID 30 days #180 mL 02/06/23 (2.5 mg base)/3 mL nebulization soln dulaglutide 0.75 mg/0.5 mL 0.75 mg (0.5 mL) subcut FR@0900 #6 02/12/23 subcutaneous pen injector mL (Trulicity) lisinopril 5 mg tablet 5 mg PO DAILY #90 tabs 03/03/23 insulin degludec 100 unit/mL (3 10 unit (0.1 mL) subcut DAILY #15 03/05/23 mL) subcutaneous pen (Tresiba mL FlexTouch U-100 insulin) omeprazole 20 mg capsule,delayed 20 mg PO BID #180 caps 03/21/23 release albuterol sulfate 90 mcg/actuation 2 inh inhalation Q4-6H PRN 03/24/23 breath activated powder inhaler shortness of breath or wheezing #1 ea atorvastatin 10 mg tablet 10 mg PO BEDTIME #90 tabs 03/27/23 pen needle, diabetic 31 gauge x #100 ea 03/27/23 3/16 (BD Ultra-Fine Mini Pen Needle) Allergies Allergy/AdvReac Type Severity Reaction Status Date / Time No Known Allergies Allergy Mild NOT Verified 04/17/23 18:26 APPLICABLE Review of Systems 2 Review of Systems: Yes all other systems are reviewed and are negative [facility] Past Medical History Medical History Chronic bronchitis Schizophrenia Centrilobular emphysema Essential hypertension Hyperlipidemia LDL goal <70 COPD (chronic obstructive pulmonary disease) Smoker Type 2 diabetes mellitus with diabetic polyneuropathy Multiple pulmonary nodules Family History Family History Father Prostate cancer Diabetes Mother Diabetes Hypertension CVD (cardiovascular disease) Social History Social History Household Members: Other Housing: Other Housing Other:: long term Do you presently have visiting nurse or other home services: Yes Unable to assess alcohol history related to: Refusing to respond Alcohol intake: unknown Patient Tobacco Use Status: Current everyday Tobacco user Tobacco use type: Cigarette Cigarette Packs Per Day: 1 Cigarettes Per Day: 20.0 Years Smoked: 40 Advance Directives: Yes Advance Directives on File: Yes Advance Directives Date on File: 10/25/22 service: No Current occupational status: disabled Cognitive needs: No Hearing needs: No Vision needs: No Physical Exam 2 Vital Signs: Vital Signs: Last Vital Signs Temp 98.2 F 04/17/23 17:57 Pulse 77 04/17/23 17:57 Resp 18 04/17/23 17:57 BP 159/83 H 04/17/23 17:57 Pulse Ox 99 04/17/23 19:44 O2 Del Method Room Air 04/17/23 19:44 BMI result Body Mass Index 24.4 Appearance: Alert. Oriented X3. No acute distress. Eyes: PERRLA, No Nystagmus ENT: Pharynx normal. Oral Mucosa moist Neck: Normal inspection. Neck supple. CVS: Normal heart rate and rhythm. Pulses normal. Respiratory: No respiratory distress. Equal air entry bilateral, prolonged expiration, no wheezing/rales/rhonchi Abdomen: Soft and nontender. Bowel sounds are present, no mass palpable, no CVA tenderness Skin: Skin warm and dry. Normal skin color. Normal skin turgor. Extremities: No lower extremity edema. No calf tenderness Neuro: Oriented X 3. No motor deficit. No sensory deficit.No cerebellar signs , cranial nerves II-XII intact Medical Decision Making Medical Decision Making [facility] Narrative: Patient with chronic multiple symptoms workup negative for acute disease patient advised to follow with PCP Differential Diagnosis Differential Diagnoses: The differential diagnosis associated with the presentation includes Chronic bronchitis/COPD/smoker's cough/atypical chest pain/EC Lab Data [facility] Lab Attestation statement: I reviewed the patient's lab results. 04/17/23 19:16 04/17/23 19:16 Labs: Lab Results 04/17/23 Range/Units 19:16 WBC 7.1 (4.8-10.8) X10*3/uL RBC 3.74 L (4.60-5.80) X10*6/uL Hgb 10.5 L (14.0-18.0) g/dl Hct 31.7 L (42.0-52.0) % MCV 84.8 (80.0-98.0) fL MCH 28.1 (27.0-33.0) pg MCHC 33.1 (31.0-36.0) g/dl RDW 14.0 (11.0-16.0) % Plt Count 144 L (160-400) X10*3/uL MPV 9.8 (9.4-12.4) fL Immature Gran % (Auto) 0.4 (0.0-0.4) % Neut % (Auto) 46.8 (45-73) % Lymph % (Auto) 31.3 (20-40) % Kings % (Auto) 14.6 H (2-11) % Eos % (Auto) 6.2 H (0-4) % Baso % (Auto) 0.7 (0-2) % Lymph # (Auto) 2.2 (1.2-4.9) X10*3/uL Kings # (Auto) 1.0 (0.1-1.2) X10*3/uL Eos # (Auto) 0.4 (0.0-0.4) X10*3/uL Baso # (Auto) 0.1 (0.0-0.2) X10*3/uL Abs Immat Gran (auto) 0.03 (0.00-0.03) X10*3/uL Absolute Neuts (auto) 3.3 (2.0-8.3) x10*3/uL Absolute Nucleated RBC 0.000 (0.0-0.012) X10*3/uL Nucleated RBC % (auto) 0.0 (0.0-0.2) /100WBC Sodium 132 L (135-145) mmol/L Potassium 4.0 (3.3-5.1) mmol/L Chloride 101 (96-108) mmol/L Carbon Dioxide 23 (22-29) mmol/L Anion Gap 12 (12-20) BUN 15 (9-16) mg/dL Creatinine 1.06 (0.5-1.4) mg/dL Estim Creat Clear Calc 73.2 Estimated GFR > 60 Random Glucose 155 H (60-115) mg/dL Calcium 9.0 (8.4-10.2) mg/dL Total Bilirubin 0.2 (0.0-1.0) mg/dL AST 12 (5-37) U/L ALT 7 (0-40) U/L Alkaline Phosphatase 59 (39-117) U/L Troponin I High Sens 3.1 (<3.5-35.0) ng/L Total Protein 7.3 (6.5-8.0) g/dL Albumin 3.5 (3.5-5.0) g/dL Independent Interpretation I performed an independent interpretation of an: EKG Interpretation: Normal sinus rhythm heart rate 75 beats per minute normal interval normal axis no acute ST wave changes no acute ischemia Discharge Plan Discharge Clinical Impression: Chronic cough, COPD (chronic obstructive pulmonary disease) Patient Disposition: Home, Self-Care Instructions: COPD (Chronic Obstructive Pulmonary Disease) (DC), Chronic Cough (ED) Additional Instructions: Stop smoking Use your inhaler as advised Follow with your lungs specialist Prescriptions: No Action (DME) blood-glucose meter [FreeStyle Lite Meter] Kit See Rx Instructions .ROUTE .MEDSUPPLY Qty: 1 0RF Rx Instructions: As directed magnesium hydroxide [Milk of Magnesia] 400 mg/5 mL suspension 5 ml PO BEDTIME PRN (Reason: for severe constipation only) Qty: 355 0RF (DME) FreeStyle Lite Strips Strip See Rx Instructions .Route Qty: 100 6RF Rx Instructions: Use to check blood sugar three times daily docusate sodium 100 mg capsule 100 mg PO DAILY PRN (Reason: constipation) Qty: 30 6RF sennosides 8.6 mg tablet 17.2 mg PO DAILY PRN (Reason: constipation) Qty: 60 2RF amlodipine 10 mg tablet 10 mg PO DAILY 90 Days Qty: 90 1RF aspirin [Adult Low Dose Aspirin] 81 mg tablet,delayed release (DR/EC) 81 mg PO DAILY Qty: 90 1RF acetaminophen [Tylenol 8 Hour] 650 mg tablet extended release 650 mg PO Q6H PRN (Reason: pain) 30 Days Qty: 120 0RF Trulicity 0.75 mg/0.5 mL pen injector 0.75 mg subcut FR@0900 Qty: 6 1RF lisinopril 5 mg tablet 5 mg PO DAILY Qty: 90 1RF insulin degludec [Tresiba FlexTouch U-100] 100 unit/mL (3 mL) insulin pen 10 unit subcut DAILY Qty: 15 1RF omeprazole 20 mg capsule,delayed release(DR/EC) 20 mg PO BID Qty: 180 1RF albuterol sulfate 90 mcg/actuation aerosol powdr breath activated 2 inh inhalation Q4-6H PRN (Reason: shortness of breath or wheezing) Qty: 1 2RF (DME) pen needle, diabetic [BD Ultra-Fine Mini Pen Needle] 31 gauge x 3/16 needle See Rx Instructions subcut TID Qty: 100 1RF Rx Instructions: As directed to inject insulin daily atorvastatin 10 mg tablet 10 mg PO BEDTIME Qty: 90 1RF propranolol 20 mg tablet 1 tab PO BEDTIME cholecalciferol (vitamin D3) 125 mcg (5,000 unit) capsule 125 mcg PO BEDTIME azithromycin 250 mg tablet 250 mg PO MOWEFR@0900 Rx Instructions: Take 1 tablet on Friday/Friday/Friday prednisone 20 mg tablet 20 mg PO ONCE Rx Instructions: END DATE: 02/15/23 propranolol 20 mg tablet 10 mg PO DAILY benztropine 2 mg tablet 2 mg PO BID gabapentin 300 mg capsule 300 mg PO TID fluphenazine HCl 5 mg tablet 5 mg PO BID olanzapine 10 mg tablet 10 mg PO BID vitamin E 1,150 unit/1.25 mL liquid 1,000 unit PO DAILY divalproex 500 mg tablet extended release 24 hr 1,500 mg PO BEDTIME ipratropium-albuterol 0.5 mg-3 mg(2.5 mg base)/3 mL solution for nebulization 3 ml inhalation BID 30 Days Qty: 180 11RF Trelegy Ellipta 100-62.5-25 mcg blister with device 1 inh inhalation DAILY 30 Days Qty: 60 11RF
--- NOTE | 2023-04-17 18:13 | ECG_ITS ---
Test Reason : CHEST PAIN Blood Pressure : / mmHG Vent. Rate : 075 BPM Atrial Rate : 075 BPM P-R Int : 158 ms QRS Dur : 092 ms QT Int : 366 ms P-R-T Axes : 073 000 016 degrees QTc Int : 408 ms Normal sinus rhythm Normal ECG When compared with ECG of 02-APR-2023 17:53, No significant change was found Referred By: Kem Fitzgerald Electronically Signed By:CLIVE MANN
[2023-04-17 19:19] LABS: MANUAL DIFF FLAG NO
[2023-04-17 19:26] LABS: Basophils Absolute Auto 0.1 X10*3/uL (0.0-0.2); Basophils Percent Auto 0.7 % (0-2); Eosinophils Absolute Auto 0.4 X10*3/uL (0.0-0.4); Eosinophils Percent Auto 6.2 % (0-4); Hematocrit 31.7 % (42.0-52.0); Hemoglobin 10.5 g/dl (14.0-18.0); Imm Gran Abs Auto 0.03 X10*3/uL (0.00-0.03); Imm Gran Pct Auto 0.4 % (0.0-0.4); Lymphocytes Absolute Auto 2.2 X10*3/uL (1.2-4.9); Lymphocytes Percent Auto 31.3 % (20-40); Mean Corpuscular HGB Conc 33.1 g/dl (31.0-36.0); Mean Corpuscular Hemoglobin 28.1 pg (27.0-33.0); Mean Corpuscular Volume 84.8 fL (80.0-98.0); Mean Platelet Volume 9.8 fL (9.4-12.4); Monocytes Percent Auto 14.6 % (2-11); Neutrophils Absolute Auto 3.3 x10*3/uL (2.0-8.3); Neutrophils Percent Auto 46.8 % (45-73); Platelet Count 144 X10*3/uL (160-400); Red Blood Count 3.74 X10*6/uL (4.60-5.80); White Blood Count 7.1 X10*3/uL (4.8-10.8)
[2023-04-17 19:34] LABS: Alanine Aminotransferase 7 U/L (0-40); Albumin Level 3.5 g/dL (3.5-5.0); Alkaline Phosphatase 59 U/L (39-117); Anion Gap 12 (12-20); Aspartate Amino Transferase 12 U/L (5-37); Bilirubin Total 0.2 mg/dL (0.0-1.0); Blood Urea Nitrogen 15 mg/dL (9-16); Carbon Dioxide 23 mmol/L (22-29); Chloride 101 mmol/L (96-108); Creatinine Clr Calc Pharmacy 73.2; Estimated Glomerular Filt Rate > 60; Glucose Random 155 mg/dL (60-115); Sodium 132 mmol/L (135-145); Total Protein 7.3 g/dL (6.5-8.0)
[2023-04-17 19:44] VITALS: O2SAT 99
--- NOTE | 2023-04-17 19:45 | PC.NURSE ---
assumed care of patient at 1900, pt resting comfortably on strethcer in hallway, offers no complaints to this RN at this time
[2023-04-17 19:47] LABS: Troponin-I High Sensitivity 3.1 ng/L (<3.5-35.0)
--- NOTE | 2023-04-17 20:15 | PC.NURSE ---
this RN called shelter to inquire about how he will get home. [facility] stated that they will make phone calls to other staff to determine who will pick him up
== END 2023-04-17 20:39 | disposition home or self-care (01) ==
PROVIDERS: Emergency Provider Internal Medicine; PCP Nurse Practitioner Family
DX: R05.3 Chronic cough (principal); J44.9 Chronic obstructive pulmonary disease, unspecified; E11.9 Type 2 diabetes mellitus without complications; I10 Essential (primary) hypertension; E78.5 Hyperlipidemia, unspecified; F17.210 Nicotine dependence, cigarettes, uncomplicated; Z71.6 Tobacco abuse counseling; Z79.899 Other long term (current) drug therapy; Z79.82 Long term (current) use of aspirin
CPT/HCPCS: 36415; 71045; 80053; 84484; 85025; 93005; 99283; 99284

== ENCOUNTER 2023-04-25 12:18 | Outpatient (REF) | payer MEDICARE, MEDICAID, SELFPAY ==
[2023-04-25 14:14] LABS: Anion Gap 12 (12-20); Blood Urea Nitrogen 21 mg/dL (9-16); Calcium 8.7 mg/dL (8.4-10.2); Carbon Dioxide 21 mmol/L (22-29); Chloride 106 mmol/L (96-108); Estimated Glomerular Filt Rate > 60; Glucose Random 181 mg/dL (60-115); Potassium 3.9 mmol/L (3.3-5.1); Sodium 135 mmol/L (135-145)
== END 2023-04-25 12:19 | disposition home or self-care (01) ==
LOC: HO.10HDL 12:18
PROVIDERS: Visit Provider Internal Medicine Hypertension Specialist
DX: Z13.89 Encounter for screening for other disorder (principal)
CPT/HCPCS: 36415; 80048

== ENCOUNTER 2023-05-05 17:34 | Emergency (ER) | payer MEDICARE, MEDICAID, SELFPAY ==
--- NOTE | ~2023-05-05 | XR_ITS ---
EXAMINATION: XR CHEST CLINICAL INFORMATION: Chest pain COMPARISON: 04/17/2023 and selected priors TECHNIQUE: AP portable view of the chest was obtained. 2 attempts FINDINGS: Nonstandard positioning. Patient rotation. Increased markings at the left base with reduced lung volumes likely crowding or atelectasis. Persistent plate atelectasis. No effusion or pneumothorax. Grossly stable heart and mediastinum given nonstandard positioning. Nonobstructive gas pattern. No acute osseous finding. XR/XR chest 1V IMPRESSION: Probable crowding of normal structures at the left base. If symptoms persist recommend repeat radiograph with improved positioning and depth of inspiration.
--- NOTE | 2023-05-05 17:45 | ECG_ITS ---
Test Reason : SOB CHEST PAIN Blood Pressure : / mmHG Vent. Rate : 076 BPM Atrial Rate : 076 BPM P-R Int : 158 ms QRS Dur : 094 ms QT Int : 364 ms P-R-T Axes : 069 -06 022 degrees QTc Int : 409 ms Normal sinus rhythm Normal ECG When compared with ECG of 17-APR-2023 18:32, No significant change was found Referred By: Aileen Sarah Electronically Signed By:CLIVE MANN
[2023-05-05 17:50] VITALS: BP 130/74; BP 141/116; PULSE 78; PULSE 86; RESP 22; TEMP 37; O2SAT 95; BMI 27.0
--- NOTE | 2023-05-05 17:50 | ED.CHESTPAIN ---
HPI - Chest Pain General Chief Complaint: Chest Pain Stated Complaint: CP SOB Time Seen by Provider: 05/05/23 17:37 Source: patient and EMS Mode of arrival: EMS Limitations: no limitations History of Present Illness HPI narrative: Patient comes to the emergency room complaining of 4 hours of chest pain. Patient states is intermittent, EMS gave him aspirin and states he feels better. Patient states that he has history of anxiety, he does not know if the chest pain is because he is anxious. Patient denies shortness of breath, no recent URI illnesses. Other than feeling anxious, patient Denies any other symptoms. Related Data Home Medications Medication Instructions Recorded Confirmed benztropine 2 mg tablet 2 mg PO BID 11/22/20 02/15/23 divalproex 500 mg tablet,extended 1,500 mg PO BEDTIME 07/16/21 02/15/23 release 24 hr olanzapine 10 mg tablet 10 mg PO BID 07/16/21 02/15/23 fluphenazine HCl 5 mg tablet 5 mg PO BID 11/26/21 02/15/23 gabapentin 300 mg capsule 300 mg PO TID 11/26/21 02/15/23 propranolol 20 mg tablet 1 tab PO BEDTIME 08/18/22 02/15/23 vitamin E 1,150 unit/1.25 mL oral 1,000 unit PO DAILY 01/28/23 02/15/23 liquid azithromycin 250 mg tablet 250 mg PO MOWEFR@0900 02/15/23 02/15/23 cholecalciferol (vitamin D3) 125 125 mcg PO BEDTIME 02/15/23 02/15/23 mcg (5,000 unit) capsule prednisone 20 mg tablet 20 mg PO ONCE 02/15/23 02/15/23 propranolol 20 mg tablet 10 mg PO DAILY 02/15/23 02/15/23 Previous Rx's Medication Instructions Recorded blood-glucose meter (FreeStyle #1 ea 05/24/21 Lite Meter kit) magnesium hydroxide 400 mg/5 mL 5 ml PO BEDTIME PRN for severe 09/05/22 oral suspension (Milk of Magnesia) constipation only #355 mL blood sugar diagnostic (FreeStyle #100 ea 09/23/22 Lite Strips) docusate sodium 100 mg capsule 100 mg PO DAILY PRN constipation 12/05/22 #30 caps sennosides 8.6 mg tablet 17.2 mg (2 x 8.6 mg) PO DAILY PRN 12/05/22 constipation #60 tabs amlodipine 10 mg tablet 10 mg PO DAILY 90 days #90 tabs 01/03/23 aspirin 81 mg tablet,delayed 81 mg PO DAILY #90 tabs 01/08/23 release (Adult Low Dose Aspirin) acetaminophen 650 mg 650 mg PO Q6H PRN pain 30 days 01/30/23 tablet,extended release (Tylenol 8 #120 tabs Hour) fluticasone fur. 100 mcg-umeclid 1 inh inhalation DAILY 30 days #60 02/06/23 62.5 mcg-vilant 25 mcg ea inhalat.powder (Trelegy Ellipta) ipratropium 0.5 mg-albuterol 3 mg 3 ml inhalation BID 30 days #180 mL 02/06/23 (2.5 mg base)/3 mL nebulization soln dulaglutide 0.75 mg/0.5 mL 0.75 mg (0.5 mL) subcut FR@0900 #6 02/12/23 subcutaneous pen injector mL (Trulicity) lisinopril 5 mg tablet 5 mg PO DAILY #90 tabs 03/03/23 insulin degludec 100 unit/mL (3 10 unit (0.1 mL) subcut DAILY #15 03/05/23 mL) subcutaneous pen (Tresiba mL FlexTouch U-100 insulin) omeprazole 20 mg capsule,delayed 20 mg PO BID #180 caps 03/21/23 release albuterol sulfate 90 mcg/actuation 2 inh inhalation Q4-6H PRN 03/24/23 breath activated powder inhaler shortness of breath or wheezing #1 ea atorvastatin 10 mg tablet 10 mg PO BEDTIME #90 tabs 03/27/23 pen needle, diabetic 31 gauge x #100 ea 03/27/23 3/16 (BD Ultra-Fine Mini Pen Needle) Allergies Allergy/AdvReac Type Severity Reaction Status Date / Time No Known Allergies Allergy Mild NOT Verified 05/05/23 17:50 APPLICABLE Review of Systems Review of Systems: Constitutional : No Weight loss, No Fever, No Chills, No Night Sweats, No Fatigue, No Malaise ENT/Mouth : No Hearing loss, No Ear Pain, No Nasal Congestion, No Sinus Pain, No Hoarseness, No sore throat, No Rhinorrhea, No Swallowing Difficulty Eyes: No Eye Pain, No Swelling, No Redness, No Foreign Body, No Discharge, No Vision Changes Cardiovascular : Complaining of Chest Pain, No SOB, No Dyspnea on Exertion, No Orthopnea, No Edema, No Palpitations Respiratory : No Cough, No Sputum, No Wheezing, No Smoke Exposure, No Dyspnea Gastrointestinal : No Nausea, No Vomiting, No Diarrhea, No Constipation, No abdominal Pain, No Hematochezia, No Melena Genitourinary : no irregular bleeding, No Dysuria, No Urinary Frequency, No Hematuria, No Urinary Incontinence, No Urgency, No Flank Pain, No Urinary Flow Changes, No Hesitancy Musculoskeletal : No joint pain, No Myalgias, No Joint Swelling Skin : No Skin Lesions, No rash Neuro : No Weakness, No Numbness, No Paresthesias, No Loss of Consciousness, No Dizziness, No Headache Psych : Complaining of anxiety, No Depression, No SI/HI/AH/VH, No Social Issues, Heme/Lymph: No Bruising, No Bleeding,No Lymphadenopathy Endocrine : No Polyuria, No Polydipsia, No Temperature Intolerance [facility] Past Medical History Medical History Chronic bronchitis Schizophrenia Centrilobular emphysema Essential hypertension Hyperlipidemia LDL goal <70 COPD (chronic obstructive pulmonary disease) Smoker Type 2 diabetes mellitus with diabetic polyneuropathy Multiple pulmonary nodules Family History Family History Father Prostate cancer Diabetes Mother Diabetes Hypertension CVD (cardiovascular disease) Social History Social History Household Members: Other Housing: Other Housing Other:: [facility] Do you presently have visiting nurse or other home services: Yes Unable to assess alcohol history related to: Refusing to respond Alcohol intake: unknown Patient Tobacco Use Status: Current everyday Tobacco user Tobacco use type: Cigarette Cigarette Packs Per Day: 1 Cigarettes Per Day: 20.0 Years Smoked: 40 Smoked in Last 30 Days: Yes Use of substances other than those prescribed or required for medical reasons: No Advance Directives: Yes Advance Directives on File: Yes Advance Directives Date on File: 10/25/22 service: No Current occupational status: disabled Cognitive needs: No Hearing needs: No Vision needs: No Physical Exam Vital Signs: Vital Signs: Last Vital Signs Temp 98.6 F 05/05/23 17:50 Pulse 73 05/05/23 21:08 Resp 19 05/05/23 21:08 BP 145/79 H 05/05/23 21:08 Pulse Ox 98 05/05/23 21:08 O2 Del Method Room Air 05/05/23 21:08 BMI result Body Mass Index 27.0 Const: Other: Appearance: Alert. Oriented X3. No acute distress. Eyes: Pupils equal, round and reactive to light. ENT: Pharynx normal. Neck: Normal inspection. Neck supple. No lymph nodes noted. No crepitus CVS: Normal heart rate and rhythm. Pulses normal. Normal S1 and S2 Respiratory: No respiratory distress. Breath sounds normal. No Wheezing. No rales Abdomen: Soft and nontender. No rigidity. No distention. Skin: Skin warm and dry. Normal skin color. Normal skin turgor. Extremities: No lower extremity edema. No Lacerations. No Rash Neuro: Oriented X 3. No motor deficit. No sensory deficit. Moving all extremities. No slurred speech. CN 2 through 12 grossly intact Psych: calm, cooperative, anxious, teary Course Course Course Narrative: -of patient's labs imaging pending Medications Administered Discontinued Medications Generic Name Dose Route Start Last Admin Trade Name Freq PRN Reason Stop Dose Admin Sodium Chloride 1,000 mls @ 999 mls/hr 05/05/23 18:39 05/05/23 19:37 Ns IVCONT 05/05/23 19:39 999 mls/hr .Q1H1M ONE Administration Lorazepam 0.5 mg 05/05/23 17:50 05/05/23 18:01 Lorazepam 0.5 Mg Tablet PO 05/05/23 17:51 0.5 mg ONCE ONE Administration Medical Decision Making Medical Decision Making [facility] Narrative: -my interpretation of EKG: Normal sinus rhythm, heart rate 76, no ST segment depression or elevation, no T-wave inversion, QTC 409 -patient was given Ativan for anxiety. -troponin x2 negative, patient denies having any chest pain. Following Ativan, patient no longer having anxiety. Feeling better. Differential Diagnosis Differential Diagnoses: The differential diagnosis associated with the presentation includes (ACS, palpitations, anxiety) Admission/Observation Consideration of admission/observation: Escalation of care including admission/observation considered (Given the patient's history on arrival, admission was considered) Lab Data MDM Lab Attestation statement: I reviewed the patient's lab results. 05/05/23 18:08 05/05/23 20:05 Labs: Lab Results 05/05/23 05/05/23 05/05/23 Range/Units 18:08 19:32 20:05 WBC 7.6 (4.8-10.8) X10*3/uL RBC 3.76 L (4.60-5.80) X10*6/uL Hgb 10.4 L (14.0-18.0) g/dl Hct 31.5 L (42.0-52.0) % MCV 83.8 (80.0-98.0) fL MCH 27.7 (27.0-33.0) pg MCHC 33.0 (31.0-36.0) g/dl RDW 14.5 (11.0-16.0) % Plt Count 195 D (160-400) X10*3/uL MPV 10.0 (9.4-12.4) fL Immature Gran % (Auto) 0.5 H (0.0-0.4) % Neut % (Auto) 52.3 (45-73) % Lymph % (Auto) 28.9 (20-40) % Sebastian % (Auto) 12.8 H (2-11) % Eos % (Auto) 4.8 H (0-4) % Baso % (Auto) 0.7 (0-2) % Lymph # (Auto) 2.2 (1.2-4.9) X10*3/uL Sebastian # (Auto) 1.0 (0.1-1.2) X10*3/uL Eos # (Auto) 0.4 (0.0-0.4) X10*3/uL Baso # (Auto) 0.1 (0.0-0.2) X10*3/uL Abs Immat Gran (auto) 0.04 H (0.00-0.03) X10*3/uL Absolute Neuts (auto) 4.0 (2.0-8.3) x10*3/uL Absolute Nucleated RBC 0.000 (0.0-0.012) X10*3/uL Nucleated RBC % (auto) 0.0 (0.0-0.2) /100WBC Sodium 133 L 133 L (135-145) mmol/L Potassium 4.3 3.7 (3.3-5.1) mmol/L Chloride 101 102 (96-108) mmol/L Carbon Dioxide 23 23 (22-29) mmol/L Anion Gap 13 12 (12-20) BUN 18 H 16 (9-16) mg/dL Creatinine 1.61 H 1.39 (0.5-1.4) mg/dL Estim Creat Clear Calc 42.4 49.2 Estimated GFR 43 51 Random Glucose 233 H 149 H (60-115) mg/dL Calcium 8.9 8.6 (8.4-10.2) mg/dL Total Bilirubin 0.2 (0.0-1.0) mg/dL Direct Bilirubin < 0.2 (0.0-0.5) mg/dL AST 20 (5-37) U/L ALT 12 (0-40) U/L Alkaline Phosphatase 54 (39-117) U/L Troponin I High Sens < 2.7 < 2.7 (<3.5-35.0) ng/L Total Protein 7.1 (6.5-8.0) g/dL Albumin 3.2 L (3.5-5.0) g/dL Urine Opiates Screen Not Detected (Not Detect) Urine Fentanyl Screen Not Detected (Not Detect) Ur Barbiturates Screen Not Detected (Not Detect) Ur Phencyclidine Scrn Not Detected (Not Detect) Ur Amphetamines Screen Not Detected (Not Detect) U Benzodiazepines Scrn Not Detected (Not Detect) Urine Cocaine Screen Not Detected (Not Detect) U Marijuana (THC) Screen Not Detected (Not Detect) Ethyl Alcohol < 10 mg/dL Independent Interpretation I performed an independent interpretation of an: EKG Radiology Impression Discussion of test interpretation with radiology: I have reviewed the radiologist's reading. Radiologist Impression: FINDINGS: Nonstandard positioning. Patient rotation. Increased markings at the left base with reduced lung volumes likely crowding or atelectasis. Persistent plate atelectasis. No effusion or pneumothorax. Grossly stable heart and mediastinum given nonstandard positioning. Nonobstructive gas pattern. No acute osseous finding. XR/XR chest 1V IMPRESSION: Probable crowding of normal structures at the left base. If symptoms persist recommend repeat radiograph with improved positioning and depth of inspiration. Discharge Plan Discharge Clinical Impression: Atypical chest pain Patient Disposition: Home, Self-Care Instructions: Chest Pain (ED) Additional Instructions: Please follow-up with your primary care physician tomorrow. If you have any worsening or new symptoms, please return to the emergency room or call 911 Prescriptions: No Action (DME) blood-glucose meter [FreeStyle Lite Meter] Kit See Rx Instructions .ROUTE .MEDSUPPLY Qty: 1 0RF Rx Instructions: As directed magnesium hydroxide [Milk of Magnesia] 400 mg/5 mL suspension 5 ml PO BEDTIME PRN (Reason: for severe constipation only) Qty: 355 0RF (DME) FreeStyle Lite Strips Strip See Rx Instructions .Route Qty: 100 6RF Rx Instructions: Use to check blood sugar three times daily docusate sodium 100 mg capsule 100 mg PO DAILY PRN (Reason: constipation) Qty: 30 6RF sennosides 8.6 mg tablet 17.2 mg PO DAILY PRN (Reason: constipation) Qty: 60 2RF amlodipine 10 mg tablet 10 mg PO DAILY 90 Days Qty: 90 1RF aspirin [Adult Low Dose Aspirin] 81 mg tablet,delayed release (DR/EC) 81 mg PO DAILY Qty: 90 1RF acetaminophen [Tylenol 8 Hour] 650 mg tablet extended release 650 mg PO Q6H PRN (Reason: pain) 30 Days Qty: 120 0RF Trulicity 0.75 mg/0.5 mL pen injector 0.75 mg subcut FR@0900 Qty: 6 1RF lisinopril 5 mg tablet 5 mg PO DAILY Qty: 90 1RF insulin degludec [Tresiba FlexTouch U-100] 100 unit/mL (3 mL) insulin pen 10 unit subcut DAILY Qty: 15 1RF omeprazole 20 mg capsule,delayed release(DR/EC) 20 mg PO BID Qty: 180 1RF albuterol sulfate 90 mcg/actuation aerosol powdr breath activated 2 inh inhalation Q4-6H PRN (Reason: shortness of breath or wheezing) Qty: 1 2RF (DME) pen needle, diabetic [BD Ultra-Fine Mini Pen Needle] 31 gauge x 3/16 needle See Rx Instructions subcut TID Qty: 100 1RF Rx Instructions: As directed to inject insulin daily atorvastatin 10 mg tablet 10 mg PO BEDTIME Qty: 90 1RF propranolol 20 mg tablet 1 tab PO BEDTIME cholecalciferol (vitamin D3) 125 mcg (5,000 unit) capsule 125 mcg PO BEDTIME azithromycin 250 mg tablet 250 mg PO MOWEFR@0900 Rx Instructions: Take 1 tablet on Friday/Friday/Friday prednisone 20 mg tablet 20 mg PO ONCE Rx Instructions: END DATE: 02/15/23 propranolol 20 mg tablet 10 mg PO DAILY benztropine 2 mg tablet 2 mg PO BID gabapentin 300 mg capsule 300 mg PO TID fluphenazine HCl 5 mg tablet 5 mg PO BID olanzapine 10 mg tablet 10 mg PO BID vitamin E 1,150 unit/1.25 mL liquid 1,000 unit PO DAILY divalproex 500 mg tablet extended release 24 hr 1,500 mg PO BEDTIME ipratropium-albuterol 0.5 mg-3 mg(2.5 mg base)/3 mL solution for nebulization 3 ml inhalation BID 30 Days Qty: 180 11RF Trelegy Ellipta 100-62.5-25 mcg blister with device 1 inh inhalation DAILY 30 Days Qty: 60 11RF
[2023-05-05] MEDS: LORazepam 0.5 MG TABLET PO (18:01)
--- NOTE | 2023-05-05 18:11 | PC.NURSE ---
patient a&ox2, iv inserted, labs drawn, ekg performed, litigation examiner applied-nsr, vss, pt medicated for anxiety, pt c/o 03/13 mid sternal chest pain, lungs clear/diminished, pt aware we need urine, call estes within reach, will continue to monitor.
[2023-05-05 18:13] LABS: MANUAL DIFF FLAG NO
[2023-05-05 18:15] LABS: Basophils Absolute Auto 0.1 X10*3/uL (0.0-0.2); Basophils Percent Auto 0.7 % (0-2); Eosinophils Absolute Auto 0.4 X10*3/uL (0.0-0.4); Eosinophils Percent Auto 4.8 % (0-4); Hematocrit 31.5 % (42.0-52.0); Hemoglobin 10.4 g/dl (14.0-18.0); Imm Gran Abs Auto 0.04 X10*3/uL (0.00-0.03); Imm Gran Pct Auto 0.5 % (0.0-0.4); Lymphocytes Absolute Auto 2.2 X10*3/uL (1.2-4.9); Lymphocytes Percent Auto 28.9 % (20-40); Mean Corpuscular Hemoglobin 27.7 pg (27.0-33.0); Mean Corpuscular Volume 83.8 fL (80.0-98.0); Monocytes Percent Auto 12.8 % (2-11); Neutrophils Percent Auto 52.3 % (45-73); Platelet Count 195 X10*3/uL (160-400); Red Blood Count 3.76 X10*6/uL (4.60-5.80); Red Cell Distribution Width 14.5 % (11.0-16.0); White Blood Count 7.6 X10*3/uL (4.8-10.8)
[2023-05-05 18:34] LABS: Alanine Aminotransferase 12 U/L (0-40); Albumin Level 3.2 g/dL (3.5-5.0); Alkaline Phosphatase 54 U/L (39-117); Anion Gap 13 (12-20); Aspartate Amino Transferase 20 U/L (5-37); Bilirubin Direct < 0.2 mg/dL (0.0-0.5); Bilirubin Total 0.2 mg/dL (0.0-1.0); Blood Urea Nitrogen 18 mg/dL (9-16); Calcium 8.9 mg/dL (8.4-10.2); Carbon Dioxide 23 mmol/L (22-29); Chloride 101 mmol/L (96-108); Creatinine Clr Calc Pharmacy 42.4; Estimated Glomerular Filt Rate 43; Ethanol < 10 mg/dL; Glucose Random 233 mg/dL (60-115); Potassium 4.3 mmol/L (3.3-5.1); Sodium 133 mmol/L (135-145); Total Protein 7.1 g/dL (6.5-8.0)
[2023-05-05 18:36] LABS: Troponin-I High Sensitivity < 2.7 ng/L (<3.5-35.0)
--- OUTSIDE RECORDS SUMMARY | 2023-05-05 18:40 | XMS_ITS | Patient Health Record ---
Author Name Unknown Organization [facility] Address [address], [place] [id number] Support Name Relationship Address Phone Richardson Armand Guarantor Unknown Unavailable REASON FOR REFERRAL No Information MEDICATIONS Medication SIG (Take, Route, Fr equency, Duration) Notes Start Date End Date Status valsartan Active omeprazole Active aspirin Active lactulose Active LORazepam Active nicotine Active Cogentin Active dilTIAZem Active fluPHENAZine Active insulin glargine Act soco divalproex sodium Ac tive fluticasone nasal Ac tive albuterol Active gabapentin Active SOCIAL HISTORY Sex Assigned At : Social History Observation Description Sex Assigned At Unknown PLAN OF TREATMENT No Information Insurance Providers Payer Name Payer Address Payer Phone Subscriber Number Group Number Insured Name Patient Relationship to Insured Coverage Start Date Coverage End Date [facility] [address] [place] [phone] [id number] Armand Bai Self - patient is the insured MEDICAL (GENERAL) HISTORY Medical History History ICD Code Asthma Diabetes HTN Stomach/GI Problems
[2023-05-05 19:36] VITALS: BP 122/67; PULSE 74; RESP 18; O2SAT 93
[2023-05-05] MEDS: 0.9 % Sodium Chloride 1,000 ML 999 ML IVCONT (19:37)
[2023-05-05 19:44] LABS: Amphetamine Screen Urine Not Detected (Not Detect); Barbiturates, Urine Not Detected (Not Detect); Benzodiazepines Screen Urine Not Detected (Not Detect); Cannabinoid Screen Urine Not Detected (Not Detect); Cocaine Screen Urine Not Detected (Not Detect); Fentanyl, urine Not Detected (Not Detect); Opiate Screen Urine Not Detected (Not Detect); Phencyclidine Screen Urine Not Detected (Not Detect)
--- NOTE | 2023-05-05 20:15 | PC.NURSE ---
this rn assumed care of pt. pt sleeping, respirations even and unlabored. no visible distress at this time. IV normal saline fluids hung at this time, lights dimmed.
[2023-05-05 20:25] LABS: Anion Gap 12 (12-20); Blood Urea Nitrogen 16 mg/dL (9-16); Calcium 8.6 mg/dL (8.4-10.2); Carbon Dioxide 23 mmol/L (22-29); Chloride 102 mmol/L (96-108); Creatinine Clr Calc Pharmacy 49.2; Estimated Glomerular Filt Rate 51; Glucose Random 149 mg/dL (60-115); Potassium 3.7 mmol/L (3.3-5.1); Sodium 133 mmol/L (135-145)
[2023-05-05 20:37] LABS: Troponin-I High Sensitivity < 2.7 ng/L (<3.5-35.0)
[2023-05-05 21:08] VITALS: BP 145/79; PULSE 73; RESP 19; O2SAT 98
== END 2023-05-05 21:56 | disposition home or self-care (01) ==
PROVIDERS: Emergency Provider Emergency Medicine; PCP Nurse Practitioner Family
DX: R07.89 Other chest pain (principal); R06.02 Shortness of breath; R11.2 Nausea with vomiting, unspecified; F17.210 Nicotine dependence, cigarettes, uncomplicated; Z71.6 Tobacco abuse counseling; Z79.899 Other long term (current) drug therapy
CPT/HCPCS: 36415; 71045; 80048; 80076; 80307; 84484; 85025; 93005; 96360; 96361; 99284; 99285

== ENCOUNTER 2023-05-11 13:14 | Emergency (ER) | payer MEDICARE, MEDICAID, SELFPAY ==
[2023-05-11 13:22] VITALS: BP 138/82; BP 142/76; PULSE 70; PULSE 73; RESP 16; TEMP 36.7; O2SAT 95; O2SAT 98; BMI 21.6
--- NOTE | 2023-05-11 14:38 | PC.NURSE ---
pt ambulating with assistance of RW from exam room to nursing station, observed steady balanced gait- pt took afternoon meds (own supply) would like to go back home
--- NOTE | 2023-05-11 15:17 | ED.GENADULT ---
HPI - General Adult General Chief complaint: Extremity Injury, Lower Stated complaint: chronic knee pain Time Seen by Provider: 05/11/23 13:26 Source: patient, EMS and court interpreter Mode of arrival: EMS Limitations: language barrier History of Present Illness HPI narrative: 68-year-old male past medical history significant for COPD, SIADH, hyponatremia, hypertension, hyperlipidemia, schizophrenia, type 2 diabetes presents To the ER with complaints weakness and his legs. Per patient he was trying to get up and walk today when he felt that both of his legs were weak and he had numbness in his legs. Tells me he does use a walker at baseline. He denies any recent falls or traumas. he tells me he still has some weakness in his legs but the numbness is resolved. No back pain. No numbness in the groin. No bowel or bladder incontinence. No fevers/chills. He tells me that he has been seen here before for chest pain and shortness of breath. He did have some chest pain several days ago but tells me that this is now resolved after coming to the ER receiving medication for this. He does have shortness of breath which she tells me is chronic. He tells me he smokes cigarettes daily. He does have an albuterol inhaler and nebulizer machine which she uses intermittently. He denies any fevers, chills, leg swelling or leg pain. Patient reports he currently resides in a [facility]. Related Data Home Medications Medication Instructions Recorded Confirmed benztropine 2 mg tablet 2 mg PO BID 11/22/20 02/15/23 divalproex 500 mg tablet,extended 1,500 mg PO BEDTIME 07/16/21 02/15/23 release 24 hr olanzapine 10 mg tablet 10 mg PO BID 07/16/21 02/15/23 fluphenazine HCl 5 mg tablet 5 mg PO BID 11/26/21 02/15/23 gabapentin 300 mg capsule 300 mg PO TID 11/26/21 02/15/23 propranolol 20 mg tablet 1 tab PO BEDTIME 08/18/22 02/15/23 vitamin E 1,150 unit/1.25 mL oral 1,000 unit PO DAILY 01/28/23 02/15/23 liquid azithromycin 250 mg tablet 250 mg PO MOWEFR@0900 02/15/23 02/15/23 cholecalciferol (vitamin D3) 125 125 mcg PO BEDTIME 02/15/23 02/15/23 mcg (5,000 unit) capsule prednisone 20 mg tablet 20 mg PO ONCE 02/15/23 02/15/23 propranolol 20 mg tablet 10 mg PO DAILY 02/15/23 02/15/23 Previous Rx's Medication Instructions Recorded blood-glucose meter (FreeStyle #1 ea 05/24/21 Lite Meter kit) magnesium hydroxide 400 mg/5 mL 5 ml PO BEDTIME PRN for severe 09/05/22 oral suspension (Milk of Magnesia) constipation only #355 mL blood sugar diagnostic (FreeStyle #100 ea 09/23/22 Lite Strips) docusate sodium 100 mg capsule 100 mg PO DAILY PRN constipation 12/05/22 #30 caps sennosides 8.6 mg tablet 17.2 mg (2 x 8.6 mg) PO DAILY PRN 12/05/22 constipation #60 tabs amlodipine 10 mg tablet 10 mg PO DAILY 90 days #90 tabs 01/03/23 aspirin 81 mg tablet,delayed 81 mg PO DAILY #90 tabs 01/08/23 release (Adult Low Dose Aspirin) acetaminophen 650 mg 650 mg PO Q6H PRN pain 30 days 01/30/23 tablet,extended release (Tylenol 8 #120 tabs Hour) fluticasone fur. 100 mcg-umeclid 1 inh inhalation DAILY 30 days #60 02/06/23 62.5 mcg-vilant 25 mcg ea inhalat.powder (Trelegy Ellipta) ipratropium 0.5 mg-albuterol 3 mg 3 ml inhalation BID 30 days #180 mL 02/06/23 (2.5 mg base)/3 mL nebulization soln dulaglutide 0.75 mg/0.5 mL 0.75 mg (0.5 mL) subcut FR@0900 #6 02/12/23 subcutaneous pen injector mL (Trulicity) lisinopril 5 mg tablet 5 mg PO DAILY #90 tabs 03/03/23 insulin degludec 100 unit/mL (3 10 unit (0.1 mL) subcut DAILY #15 03/05/23 mL) subcutaneous pen (Tresiba mL FlexTouch U-100 insulin) omeprazole 20 mg capsule,delayed 20 mg PO BID #180 caps 03/21/23 release albuterol sulfate 90 mcg/actuation 2 inh inhalation Q4-6H PRN 03/24/23 breath activated powder inhaler shortness of breath or wheezing #1 ea atorvastatin 10 mg tablet 10 mg PO BEDTIME #90 tabs 03/27/23 pen needle, diabetic 31 gauge x #100 ea 03/27/23 3/16 (BD Ultra-Fine Mini Pen Needle) Allergies Allergy/AdvReac Type Severity Reaction Status Date / Time No Known Allergies Allergy Mild NOT Verified 05/05/23 17:50 APPLICABLE Review of Systems Review of Systems: Yes all other systems are reviewed and are negative Constitutional: Constitutional: Reports no additional constitutional complaints, Denies body ache(s), Denies chills, Denies fever(s), Denies headache(s) and Reports weakness Eyes: Eyes: Reports no additional eye complaints and Denies change in vision ENT: Reports system reviewed and no additional complaints, except as documented, Denies dizziness, Denies headache(s), Denies nasal congestion, Denies nasal discharge and Denies neck pain Cardiovascular: Cardiovascular: Reports no additional cardiovascular complaints, Denies chest pain, Denies leg edema and Denies dyspnea Respiratory: Respiratory: Reports no additional respiratory complaints, Denies cough and Denies dyspnea Gastrointestinal: Gastrointestinal: Reports no additional gastrointestinal complaints, Denies abdominal pain, Denies diarrhea, Denies nausea and Denies vomiting Genitourinary: Genitourinary: Denies urinary incontinence Musculoskeletal: Musculoskeletal: Reports no additional musculoskeletal complaints, Denies back pain, Denies arthralgias, Denies joint swelling, Denies neck pain, Reports numbness and Denies tingling Integumentary/Breasts: Skin/Breast: Reports system reviewed and no additional complaints, except as docu and Denies rash Neurologic: Reports system reviewed and no additional complaints, except as documented, Denies Abnormal speech present, Denies dizziness, Denies headache(s), Reports numbness, Denies tingling and Reports weakness PMFSH Past Medical History Attestation statement: The following information was validated with the patient. Source: old records reviewed and nursing notes reviewed Medical History Chronic bronchitis Schizophrenia Centrilobular emphysema Essential hypertension Hyperlipidemia LDL goal <70 COPD (chronic obstructive pulmonary disease) Smoker Type 2 diabetes mellitus with diabetic polyneuropathy Multiple pulmonary nodules Family History Family History Father Prostate cancer Diabetes Mother Diabetes Hypertension CVD (cardiovascular disease) Social History Social History Household Members: Other Housing: Other Housing Other:: [facility] Do you presently have visiting nurse or other home services: Yes Unable to assess alcohol history related to: Refusing to respond Alcohol intake: unknown Patient Tobacco Use Status: Current everyday Tobacco user Tobacco use type: Cigarette Cigarette Packs Per Day: 1 Cigarettes Per Day: 20.0 Years Smoked: 40 Advance Directives: Yes Advance Directives on File: Yes Advance Directives Date on File: 10/25/22 service: No Current occupational status: disabled Cognitive needs: No Hearing needs: No Vision needs: No Physical Exam ED Vital Signs: Vital Signs - 24 hr 05/11/23 13:22 Temperature 98.1 F Pulse Rate 70 Respiratory Rate 16 Blood Pressure 142/76 H Pulse Oximetry 95 Oxygen Delivery Method Room Air BMI result Body Mass Index 21.6 Const General: cooperative, healthy appearing, comfortable and no acute distress Orientation/consciousness: patient oriented x3 Limitations: language barrier HENMT Head: Yes normal to inspection Ears: hearing grossly normal bilaterally and TM's normal bilaterally General nose exam: Normal external nose present Face and sinus: Yes normal facial exam Mouth: Normal oral and palatal mucosa present Throat: Yes posterior oropharynx normal, Yes tonsils normal and Yes uvula midline Eyes General: appearance normal, both eyes and all related structures Pupils: Equal, round and reactive pupils present Neck Neck: Yes normal visual inspection, Yes full ROM, Yes no lymphadenopathy and Yes no meningeal signs Chest Chest palpation & inspection: normal inspection of the chest Resp Effort & Inspection: normal respiratory effort Auscultation: wheezes Cardio Rate: regular rate Rhythm: regular rhythm Peripheral pulses: Peripheral pulses 2+ throughout GI Inspection: Yes normal to inspection Palpation (GI): Soft to palpation and nontender Auscultation: normal bowel sounds Back/Spine/Pelvis Thoracic/Lumbar Spine: thoracic and lumbar spine normal to inspection Skin General skin exam: no rashes or lesions noted Neuro General: patient oriented x3, moves all extremities, no meningeal signs, no focal motor deficits and normal sensation to monofilament Cranial nerves: Yes Equal, round and reactive pupils present, Yes Normal facial strength present and Yes Midline tongue present Cognition (Neuro): normal cognition Speech: No Abnormal speech present Motor exam (neuro): 5/5 motor strength present throughout Sensory Exam: Normal double simultaneous stimulation for sensation Extrem General: Yes normal to inspection, Yes no pedal edema and Yes no calf tenderness Course Course Course Narrative: 1649- patient informed he wanted to leave. His images are not resulted. He will leave against medical advice. Patient ambulated at the emergency room with his walker. Medications Administered Discontinued Medications Generic Name Dose Route Start Last Admin Trade Name Jovita PRN Reason Stop Dose Admin Albuterol/Ipratropium 3 ml 05/11/23 15:01 05/11/23 15:12 Albuterol/Iprat 2.5/0.5mg 3 Ml Ampul.Neb INHALE 05/11/23 15:02 3 ml ONCE ONE Administration Medical Decision Making Medical Decision Making MDM Narrative: 68-year-old male past medical history significant for COPD, SIADH, hyponatremia, hypertension, hyperlipidemia, schizophrenia, type 2 diabetes presents To the ER with complaints weakness and his legs. Per patient he was trying to get up and walk today when he felt that both of his legs were weak and he had numbness in his legs. Tells me he does use a walker at baseline. He denies any recent falls or traumas. he tells me he still has some weakness in his legs but the numbness is resolved. He tells me that he has been seen here before for chest pain and shortness of breath. He did have some chest pain several days ago but tells me that this is now resolved after coming to the ER receiving medication for this. He does have shortness of breath which she tells me is chronic. He tells me he smokes cigarettes daily. He does have an albuterol inhaler and nebulizer machine which she uses intermittently. He denies any fevers, chills, leg swelling or leg pain. Patient reports he currently resides in a [facility]. *Patient is a very difficult historian. When I initially went into the room to see him he was sitting on the side of the bed fully clothed asking to leave. I noticed some tachypnea/wheezing on exam and was able to encourage the patient to remain in the ER for further evaluation. The HPI/ROS is very difficult to obtain with the court interpreter as the patient answers most questions with I'm hungry and give me some medicine to feel better so I can go home On exam patient is alert and oriented x3. He has wheezing throughout with tachypnea. Vitals are stable. He has no overt neuro deficits or red flag symptoms. He has some complaints of leg weakness bilateral however intact motor/sensation on exam with normal DTR. I will obtain labs, UA, EKG, CXR, CT head/lumbar spine. Differential Diagnosis Differential Diagnoses: The differential diagnosis associated with the presentation includes ICH, space-occupying lesion, CVA low concern for cord compression, cauda equina, epidural abscess with normal neuro exam with no focal deficits, no history of immunocompromise state or IV drug abuse COPD exacerbation, consider pneumonia, low concern for PE, ACS UTI, anemia, electrolyte abnormality, deconditioning Admission/Observation Consideration of admission/observation: Escalation of care including admission/observation considered Lab Data MDM Lab Attestation statement: I reviewed the patient's lab results. 05/11/23 15:16 05/11/23 15:16 Labs: Lab Results 05/11/23 05/11/23 Range/Units 15:16 15:19 WBC 8.5 (4.8-10.8) X10*3/uL RBC 3.97 L (4.60-5.80) X10*6/uL Hgb 10.8 L (14.0-18.0) g/dl Hct 33.5 L (42.0-52.0) % MCV 84.4 (80.0-98.0) fL MCH 27.2 (27.0-33.0) pg MCHC 32.2 (31.0-36.0) g/dl RDW 14.7 (11.0-16.0) % Plt Count 209 (160-400) X10*3/uL MPV 10.5 (9.4-12.4) fL Immature Gran % (Auto) 0.4 (0.0-0.4) % Neut % (Auto) 58.3 (45-73) % Lymph % (Auto) 26.0 (20-40) % [place] % (Auto) 10.7 (2-11) % Eos % (Auto) 4.1 H (0-4) % Baso % (Auto) 0.5 (0-2) % Lymph # (Auto) 2.2 (1.2-4.9) X10*3/uL [place] # (Auto) 0.9 (0.1-1.2) X10*3/uL Eos # (Auto) 0.4 (0.0-0.4) X10*3/uL Baso # (Auto) 0.0 (0.0-0.2) X10*3/uL Abs Immat Gran (auto) 0.03 (0.00-0.03) X10*3/uL Absolute Neuts (auto) 5.0 (2.0-8.3) x10*3/uL Absolute Nucleated RBC 0.000 (0.0-0.012) X10*3/uL Nucleated RBC % (auto) 0.0 (0.0-0.2) /100WBC PT 11.6 (11.1-13.3) SEC INR 1.0 (0.9-1.1) Sodium 133 L (135-145) mmol/L Potassium 3.8 (3.3-5.1) mmol/L Chloride 101 (96-108) mmol/L Carbon Dioxide 24 (22-29) mmol/L Anion Gap 12 (12-20) BUN 14 (9-16) mg/dL Creatinine 1.02 (0.5-1.4) mg/dL Estim Creat Clear Calc 57.8 Estimated GFR > 60 Random Glucose 167 H (60-115) mg/dL Calcium 9.4 D (8.4-10.2) mg/dL Magnesium 2.0 (1.6-2.6) mg/dL Total Bilirubin 0.3 (0.0-1.0) mg/dL Direct Bilirubin 0.2 (0.0-0.5) mg/dL AST 21 (5-37) U/L ALT 11 (0-40) U/L Alkaline Phosphatase 56 (39-117) U/L Total Creatine Kinase 89 (38-174) U/L Troponin I High Sens 3.0 (<3.5-35.0) ng/L Total Protein 7.4 (6.5-8.0) g/dL Albumin 3.4 L (3.5-5.0) g/dL Urine Color Yellow Urine Appearance Clear Urine pH 6.5 (5.0-9.0) Ur Specific [place] 1.010 (1.005-1.025) Urine Protein Negative (Neg-Trace) mg/dL Urine Glucose (UA) 500 H (Negative) mg/dL Urine Ketones Negative (Negative) mg/dL Urine Blood Trace H (Negative) Urine Nitrite Negative (Negative) Ur Leukocyte Esterase Negative (Negative) Urine RBC 3-5 H (0-2) /HPF Urine WBC 0-5 (0-5) /HPF Ur Squamous Epith Cells 0-2 (0-2) /HPF Urine Bacteria None Seen (None Seen) Hyaline Casts 0-2 (0-2) /LPF Influenza Type A (PCR) NEGATIVE (Negative) Influenza Type B (PCR) NEGATIVE (Negative) RSV RNA Qual (PCR) NEGATIVE (Negative) SARS-CoV-2 RNA (RT-PCR) NEGATIVE (Negative) Independent Interpretation I performed an independent interpretation of an: EKG, Plain X-Ray and CT Scan Interpretation: I independently reviewed the EKG which shows normal sinus rhythm with a rate of 68, normal SC, normal QRS, normal QT I independently reviewed the chest x-ray reviewed with radiology report Radiology Impression Discussion of test interpretation with radiology: I have reviewed the radiologist's reading. Radiologist Impression: [address] [address] XRay Report Signed Patient: Armand Bai MR#: [id number] : 1955 Acct:[id number] Age/Sex: 68 / M ADM Date: 05/11/23 Loc: .ED Attending Dr: Ordering Physician: Mayuri Sol NP Date of Service: 05/11/23 Procedure(s): XR chest 2V Accession Number(s): [id number] cc: Nicholas Rashid [facility]-; Mayuri Sol NP~ EXAMINATION: XR CHEST CLINICAL INFORMATION: SOB COMPARISON: None available. TECHNIQUE: 2 views of the chest were obtained. FINDINGS: The lungs are well-expanded with platelike atelectasis right lung base. The heart size and pulmonary vascularity is normal. No gross bony abnormality seen. XR/XR chest 2V IMPRESSION: Platelike atelectasis right lung base. Independent Historian Clinical information obtained from an independent historian. History obtained from or confirmed by: EMS Discharge Plan Discharge Clinical Impression: Weakness Patient Disposition: Left Against Medical Advice Instructions: Weakness (ED), Against Medical Advice (ED) Additional Instructions: It was recommended that he remain in the ER until your results are back. You declined this. You are aware that we do not have the results of the CT scan of your head of your lumbar spine which may show a stroke, bleeding, a mass causing your symptoms Se recomend? que permanezca en urgencias hasta que tenga los resultados. T? rechazaste esto. Usted sabe que no tenemos los resultados de la tomograf?a computarizada de la caden de la columna lumbar, que puede mostrar un derrame cerebral, sangrado o heike masa que cause semaj s?ntomas. Prescriptions: No Action (DME) blood-glucose meter [FreeStyle Lite Meter] Kit See Rx Instructions .ROUTE .MEDSUPPLY Qty: 1 0RF Rx Instructions: As directed magnesium hydroxide [Milk of Magnesia] 400 mg/5 mL suspension 5 ml PO BEDTIME PRN (Reason: for severe constipation only) Qty: 355 0RF (DME) FreeStyle Lite Strips Strip See Rx Instructions .Route Qty: 100 6RF Rx Instructions: Use to check blood sugar three times daily docusate sodium 100 mg capsule 100 mg PO DAILY PRN (Reason: constipation) Qty: 30 6RF sennosides 8.6 mg tablet 17.2 mg PO DAILY PRN (Reason: constipation) Qty: 60 2RF amlodipine 10 mg tablet 10 mg PO DAILY 90 Days Qty: 90 1RF aspirin [Adult Low Dose Aspirin] 81 mg tablet,delayed release (DR/EC) 81 mg PO DAILY Qty: 90 1RF acetaminophen [Tylenol 8 Hour] 650 mg tablet extended release 650 mg PO Q6H PRN (Reason: pain) 30 Days Qty: 120 0RF Trulicity 0.75 mg/0.5 mL pen injector 0.75 mg subcut FR@0900 Qty: 6 1RF lisinopril 5 mg tablet 5 mg PO DAILY Qty: 90 1RF insulin degludec [Tresiba FlexTouch U-100] 100 unit/mL (3 mL) insulin pen 10 unit subcut DAILY Qty: 15 1RF omeprazole 20 mg capsule,delayed release(DR/EC) 20 mg PO BID Qty: 180 1RF albuterol sulfate 90 mcg/actuation aerosol powdr breath activated 2 inh inhalation Q4-6H PRN (Reason: shortness of breath or wheezing) Qty: 1 2RF (DME) pen needle, diabetic [BD Ultra-Fine Mini Pen Needle] 31 gauge x 3/16 needle See Rx Instructions subcut TID Qty: 100 1RF Rx Instructions: As directed to inject insulin daily atorvastatin 10 mg tablet 10 mg PO BEDTIME Qty: 90 1RF propranolol 20 mg tablet 1 tab PO BEDTIME cholecalciferol (vitamin D3) 125 mcg (5,000 unit) capsule 125 mcg PO BEDTIME azithromycin 250 mg tablet 250 mg PO MOWEFR@0900 Rx Instructions: Take 1 tablet on Friday/Friday/Friday prednisone 20 mg tablet 20 mg PO ONCE Rx Instructions: END DATE: 02/15/23 propranolol 20 mg tablet 10 mg PO DAILY benztropine 2 mg tablet 2 mg PO BID gabapentin 300 mg capsule 300 mg PO TID fluphenazine HCl 5 mg tablet 5 mg PO BID olanzapine 10 mg tablet 10 mg PO BID vitamin E 1,150 unit/1.25 mL liquid 1,000 unit PO DAILY divalproex 500 mg tablet extended release 24 hr 1,500 mg PO BEDTIME ipratropium-albuterol 0.5 mg-3 mg(2.5 mg base)/3 mL solution for nebulization 3 ml inhalation BID 30 Days Qty: 180 11RF Trelegy Ellipta 100-62.5-25 mcg blister with device 1 inh inhalation DAILY 30 Days Qty: 60 11RF Referrals: Nicholas Rashid, [facility] [employer] [Primary Care Provider] - 1 week Stand Alone Forms: Against Medical Advice Interventions: ED Discharge Assessment Last Done: 05/11/23 17:25 Discharge Date/Time: 05/11/23 17:26 Print Language: Latvian
--- NOTE | 2023-05-11 15:19 | PC.NURSE ---
labs obtained, currently on [facility] [place]- requesting food- per [employer] Pascucci pt will be NPO until CT scan complete, call estes within reach, care ongoing
== END 2023-05-11 17:26 | disposition left against medical advice (07) ==
PROVIDERS: Emergency Provider Emergency Medicine; PCP Nurse Practitioner Family
DX: R53.1 Weakness (principal); R06.02 Shortness of breath; R51.9 Headache, unspecified; R07.89 Other chest pain; M54.50 Low back pain, unspecified; M25.562 Pain in left knee; M25.561 Pain in right knee; Z20.822 Contact with and (suspected) exposure to COVID-19; Z11.52 Encounter for screening for COVID-19; F17.210 Nicotine dependence, cigarettes, uncomplicated; Z71.6 Tobacco abuse counseling; Z79.899 Other long term (current) drug therapy
CPT/HCPCS: 0241U; 70450; 71046; 72131; 80048; 80076; 81001; 82550; 83735; 84484; 85025; 85610; 93005; 99283

== ENCOUNTER 2023-05-25 02:50 | Emergency (ER) | payer MEDICARE, MEDICAID, SELFPAY ==
[2023-05-25 02:54] VITALS: BP 148/90; PULSE 80; O2SAT 98
[2023-05-25 02:58] VITALS: BP 152/82; PULSE 85; RESP 18; TEMP 36.8; O2SAT 99; BMI 29.2
[2023-05-25 03:51] LABS: COVID-19 Test Negative (Negative); IDNOW Serial# 08D9AD1C; IDNOW Serial# BCCEAD1C; Influenza A Negative (Negative); Influenza B2 Negative (Negative)
--- OUTSIDE RECORDS SUMMARY | 2023-05-25 08:22 | XMS_ITS | Patient Health Record ---
Author Name Unknown Organization [facility] Address [address], [place] [id number] Support Name Relationship Address Phone Richardson Armand [...] Insured Coverage Start Date Coverage End Date [facility] [address] [place] [address] [phone] [id number] Armand Bai Self - patient is the insured MEDICAL (GENERAL) HISTORY Medical History History ICD Code Asthma Diabetes HTN Stomach/GI Problems
== END 2023-05-25 08:57 | disposition left against medical advice (07) ==
PROVIDERS: Internal Medicine; Emergency Provider Emergency Medicine
DX: R53.1 Weakness (principal); Z11.52 Encounter for screening for COVID-19; Z20.822 Contact with and (suspected) exposure to COVID-19
CPT/HCPCS: 87502; 87635; 99281; 99283

== ENCOUNTER 2023-05-31 19:53 | Emergency (ER) | payer MEDICARE, MEDICAID, SELFPAY ==
--- NOTE | 2023-05-31 | ECG_ITS ---
Test Reason : CHEST PAIN Blood Pressure : / mmHG Vent. Rate : 079 BPM Atrial Rate : 079 BPM P-R Int : 160 ms QRS Dur : 096 ms QT Int : 366 ms P-R-T Axes : 074 012 034 degrees QTc Int : 419 ms Normal sinus rhythm Normal ECG When compared with ECG of 11-MAY-2023 15:23, No significant change was found Referred By: Kem Fitzgerald Electronically Signed By:VIVIANA BRAY MD
[2023-05-31 20:13] VITALS: BP 150/70; BP 168/98; PULSE 80; PULSE 83; RESP 14; TEMP 36.7; O2SAT 96; O2SAT 97; BMI 28.2
--- NOTE | 2023-05-31 20:15 | ED_ITS ---
HPI - General Adult General Chief complaint: Nausea/Vomiting/Diarrhea Stated complaint: pt. vomited water that was tampered w/? per ems Time Seen by Provider: 05/31/23 20:14 Source: patient Mode of arrival: ambulatory Limitations: no limitations History of Present Illness HPI narrative: Patient with chronic bronchitis diabetic lives in a retirement comes here after he had cup of water and felt different taste and vomited 1 time now abdominal pain and the AR patient is eating drinking without any discomfort asking for more food no diarrhea no fever Related Data Home Medications Medication Instructions Recorded Confirmed benztropine 2 mg tablet 2 mg PO BID 11/22/20 02/15/23 divalproex 500 mg tablet,extended 1,500 mg PO BEDTIME 07/16/21 02/15/23 release 24 hr olanzapine 10 mg tablet 10 mg PO BID 07/16/21 02/15/23 fluphenazine HCl 5 mg tablet 5 mg PO BID 11/26/21 02/15/23 gabapentin 300 mg capsule 300 mg PO TID 11/26/21 02/15/23 propranolol 20 mg tablet 1 tab PO BEDTIME 08/18/22 02/15/23 vitamin E 1,150 unit/1.25 mL oral 1,000 unit PO DAILY 01/28/23 02/15/23 liquid azithromycin 250 mg tablet 250 mg PO MOWEFR@0900 02/15/23 02/15/23 cholecalciferol (vitamin D3) 125 125 mcg PO BEDTIME 02/15/23 02/15/23 mcg (5,000 unit) capsule prednisone 20 mg tablet 20 mg PO ONCE 02/15/23 02/15/23 propranolol 20 mg tablet 10 mg PO DAILY 02/15/23 02/15/23 Previous Rx's Medication Instructions Recorded blood-glucose meter (FreeStyle #1 ea 05/24/21 Lite Meter kit) magnesium hydroxide 400 mg/5 mL 5 ml PO BEDTIME PRN for severe 09/05/22 oral suspension (Milk of Magnesia) constipation only #355 mL blood sugar diagnostic (FreeStyle #100 ea 09/23/22 Lite Strips) docusate sodium 100 mg capsule 100 mg PO DAILY PRN constipation 12/05/22 #30 caps sennosides 8.6 mg tablet 17.2 mg (2 x 8.6 mg) PO DAILY PRN 12/05/22 constipation #60 tabs amlodipine 10 mg tablet 10 mg PO DAILY 90 days #90 tabs 01/03/23 aspirin 81 mg tablet,delayed 81 mg PO DAILY #90 tabs 01/08/23 release (Adult Low Dose Aspirin) fluticasone fur. 100 mcg-umeclid 1 inh inhalation DAILY 30 days #60 02/06/23 62.5 mcg-vilant 25 mcg ea inhalat.powder (Trelegy Ellipta) ipratropium 0.5 mg-albuterol 3 mg 3 ml inhalation BID 30 days #180 mL 02/06/23 (2.5 mg base)/3 mL nebulization soln dulaglutide 0.75 mg/0.5 mL 0.75 mg (0.5 mL) subcut FR@0900 #6 02/12/23 subcutaneous pen injector mL (Trulicity) lisinopril 5 mg tablet 5 mg PO DAILY #90 tabs 03/03/23 insulin degludec 100 unit/mL (3 10 unit (0.1 mL) subcut DAILY #15 03/05/23 mL) subcutaneous pen (Tresiba mL FlexTouch U-100 insulin) omeprazole 20 mg capsule,delayed 20 mg PO BID #180 caps 03/21/23 release albuterol sulfate 90 mcg/actuation 2 inh inhalation Q4-6H PRN 03/24/23 breath activated powder inhaler shortness of breath or wheezing #1 ea atorvastatin 10 mg tablet 10 mg PO BEDTIME #90 tabs 03/27/23 pen needle, diabetic 31 gauge x #100 ea 03/27/23 3/16 (BD Ultra-Fine Mini Pen Needle) acetaminophen 650 mg 650 mg PO Q6H PRN pain 30 days 05/30/23 tablet,extended release (Tylenol 8 #120 tabs Hour) Allergies Allergy/AdvReac Type Severity Reaction Status Date / Time No Known Allergies Allergy Mild NOT Verified 05/25/23 03:03 APPLICABLE Review of Systems 2 Review of Systems: Yes all other systems are reviewed and are negative [facility] Past Medical History Medical History Chronic bronchitis Schizophrenia Centrilobular emphysema Essential hypertension Hyperlipidemia LDL goal <70 COPD (chronic obstructive pulmonary disease) Smoker Type 2 diabetes mellitus with diabetic polyneuropathy Multiple pulmonary nodules Family History Family History Father Prostate cancer Diabetes Mother Diabetes Hypertension CVD (cardiovascular disease) Social History Social History Household Members: Other Housing: Other Housing Other:: [facility] Do you presently have visiting nurse or other home services: Yes Unable to assess alcohol history related to: Refusing to respond Alcohol intake: unknown Patient Tobacco Use Status: Current everyday Tobacco user Tobacco use type: Cigarette Cigarette Packs Per Day: 1 Cigarettes Per Day: 20.0 Years Smoked: 40 Smoked in Last 30 Days: Yes Use of substances other than those prescribed or required for medical reasons: No Advance Directives: Yes Advance Directives on File: Yes Advance Directives Date on File: 10/25/22 service: No Current occupational status: disabled Cognitive needs: No Hearing needs: No Vision needs: No Physical Exam ED Vital Signs: Vital Signs - 24 hr 05/31/23 20:13 05/31/23 20:20 Temperature 98.1 F 98.1 F Pulse Rate 80 80 Respiratory Rate 14 16 Blood Pressure 150/70 H 150/70 H Pulse Oximetry 97 97 Oxygen Delivery Method Room Air Room Air BMI result Body Mass Index 28.2 Appearance: Alert. Oriented X3. No acute distress. Eyes: PERRLA, ENT: Pharynx normal. Oral Mucosa moist Neck: Normal inspection. Neck supple. CVS: Normal heart rate and rhythm. Pulses normal. Respiratory: No respiratory distress. Equal air entry bilateral, no wheezing/rales/rhonchi Abdomen: Soft and nontender. Bowel sounds are present, no mass palpable, no CVA tenderness Skin: Skin warm and dry. Normal skin color. Normal skin turgor. Extremities: No lower extremity edema. No calf tenderness Neuro: Oriented X 3. No motor deficit. Medical Decision Making Medical Decision Making MDM Narrative: Patient with nonspecific complaints in the ER patient noticed that he has been eating normally without any discomfort asking for more food, patient's labs are stable discharge patient back to retirement Differential Diagnosis Differential Diagnoses: The differential diagnosis associated with the presentation includes Acute gastritis/gastroenteritis Lab Data MDM Lab Attestation statement: I reviewed the patient's lab results. 05/31/23 20:32 05/31/23 20:32 Labs: Lab Results 10/28/23 10/28/23 Range/Units 20:32 20:42 WBC 8.2 (4.8-10.8) X10*3/uL RBC 3.67 L (4.60-5.80) X10*6/uL Hgb 10.2 L (14.0-18.0) g/dl Hct 31.1 L (42.0-52.0) % MCV 84.7 (80.0-98.0) fL MCH 27.8 (27.0-33.0) pg MCHC 32.8 (31.0-36.0) g/dl RDW 14.6 (11.0-16.0) % Plt Count 194 (160-400) X10*3/uL MPV 9.8 (9.4-12.4) fL Immature Gran % (Auto) 0.4 (0.0-0.4) % Neut % (Auto) 53.8 (45-73) % Lymph % (Auto) 23.7 (20-40) % [place] % (Auto) 18.1 H (2-11) % Eos % (Auto) 3.4 (0-4) % Baso % (Auto) 0.6 (0-2) % Lymph # (Auto) 1.9 (1.2-4.9) X10*3/uL [place] # (Auto) 1.5 H (0.1-1.2) X10*3/uL Eos # (Auto) 0.3 (0.0-0.4) X10*3/uL Baso # (Auto) 0.1 (0.0-0.2) X10*3/uL Abs Immat Gran (auto) 0.03 (0.00-0.03) X10*3/uL Absolute Neuts (auto) 4.4 (2.0-8.3) x10*3/uL Absolute Nucleated RBC 0.000 (0.0-0.012) X10*3/uL Nucleated RBC % (auto) 0.0 (0.0-0.2) /100WBC Sodium 130 L (135-145) mmol/L Potassium 3.6 (3.3-5.1) mmol/L Chloride 99 (96-108) mmol/L Carbon Dioxide 23 (22-29) mmol/L Anion Gap 12 (12-20) BUN 14 (9-16) mg/dL Creatinine 1.34 (0.5-1.4) mg/dL Estim Creat Clear Calc 52.2 Estimated GFR 53 Random Glucose 159 H (60-115) mg/dL Calcium 9.0 (8.4-10.2) mg/dL Total Bilirubin 0.3 (0.0-1.0) mg/dL AST 19 (5-37) U/L ALT 11 (0-40) U/L Alkaline Phosphatase 56 (39-117) U/L Troponin I High Sens < 2.7 (<3.5-35.0) ng/L Total Protein 7.3 (6.5-8.0) g/dL Albumin 3.2 L (3.5-5.0) g/dL Lipase 22 (8-78) U/L Urine Color Yellow Urine Appearance Clear Urine pH 7.0 (5.0-9.0) Ur Specific [place] 1.010 (1.005-1.025) Urine Protein Negative (Neg-Trace) mg/dL Urine Glucose (UA) Negative (Negative) mg/dL Urine Ketones Negative (Negative) mg/dL Urine Blood Small (1+) H (Negative) Urine Nitrite Negative (Negative) Ur Leukocyte Esterase Negative (Negative) Urine RBC 6-10 H (0-2) /HPF Urine WBC 0-5 (0-5) /HPF Ur Squamous Epith Cells 0-2 (0-2) /HPF Urine Bacteria None Seen (None Seen) Hyaline Casts 0-2 (0-2) /LPF Discharge Plan Discharge Clinical Impression: Non-specific gastrointestinal complaint Patient Disposition: Home, Self-Care Instructions: Acute Nausea and Vomiting (ED) Additional Instructions: Drink plenty of fluids Take your medication as prescribed Prescriptions: No Action (DME) blood-glucose meter [FreeStyle Lite Meter] Kit See Rx Instructions .ROUTE .MEDSUPPLY Qty: 1 0RF Rx Instructions: As directed magnesium hydroxide [Milk of Magnesia] 400 mg/5 mL suspension 5 ml PO BEDTIME PRN (Reason: for severe constipation only) Qty: 355 0RF (DME) FreeStyle Lite Strips Strip See Rx Instructions .Route Qty: 100 6RF Rx Instructions: Use to check blood sugar three times daily docusate sodium 100 mg capsule 100 mg PO DAILY PRN (Reason: constipation) Qty: 30 6RF sennosides 8.6 mg tablet 17.2 mg PO DAILY PRN (Reason: constipation) Qty: 60 2RF amlodipine 10 mg tablet 10 mg PO DAILY 90 Days Qty: 90 1RF aspirin [Adult Low Dose Aspirin] 81 mg tablet,delayed release (DR/EC) 81 mg PO DAILY Qty: 90 1RF Trulicity 0.75 mg/0.5 mL pen injector 0.75 mg subcut FR@0900 Qty: 6 1RF lisinopril 5 mg tablet 5 mg PO DAILY Qty: 90 1RF insulin degludec [Tresiba FlexTouch U-100] 100 unit/mL (3 mL) insulin pen 10 unit subcut DAILY Qty: 15 1RF omeprazole 20 mg capsule,delayed release(DR/EC) 20 mg PO BID Qty: 180 1RF albuterol sulfate 90 mcg/actuation aerosol powdr breath activated 2 inh inhalation Q4-6H PRN (Reason: shortness of breath or wheezing) Qty: 1 2RF (DME) pen needle, diabetic [BD Ultra-Fine Mini Pen Needle] 31 gauge x 3/16 needle See Rx Instructions subcut TID Qty: 100 1RF Rx Instructions: As directed to inject insulin daily atorvastatin 10 mg tablet 10 mg PO BEDTIME Qty: 90 1RF acetaminophen [Tylenol 8 Hour] 650 mg tablet extended release 650 mg PO Q6H PRN (Reason: pain) 30 Days Qty: 120 0RF propranolol 20 mg tablet 1 tab PO BEDTIME cholecalciferol (vitamin D3) 125 mcg (5,000 unit) capsule 125 mcg PO BEDTIME azithromycin 250 mg tablet 250 mg PO MOWEFR@0900 Rx Instructions: Take 1 tablet on Friday/Friday/Friday prednisone 20 mg tablet 20 mg PO ONCE Rx Instructions: END DATE: 02/15/23 propranolol 20 mg tablet 10 mg PO DAILY benztropine 2 mg tablet 2 mg PO BID gabapentin 300 mg capsule 300 mg PO TID fluphenazine HCl 5 mg tablet 5 mg PO BID olanzapine 10 mg tablet 10 mg PO BID vitamin E 1,150 unit/1.25 mL liquid 1,000 unit PO DAILY divalproex 500 mg tablet extended release 24 hr 1,500 mg PO BEDTIME ipratropium-albuterol 0.5 mg-3 mg(2.5 mg base)/3 mL solution for nebulization 3 ml inhalation BID 30 Days Qty: 180 11RF Trelegy Ellipta 100-62.5-25 mcg blister with device 1 inh inhalation DAILY 30 Days Qty: 60 11RF
[2023-05-31 20:20] VITALS: BP 150/70; PULSE 80; RESP 16; TEMP 36.7; O2SAT 97
[2023-05-31 20:37] LABS: MANUAL DIFF FLAG NO
[2023-05-31 20:38] LABS: Basophils Absolute Auto 0.1 X10*3/uL (0.0-0.2); Basophils Percent Auto 0.6 % (0-2); Eosinophils Absolute Auto 0.3 X10*3/uL (0.0-0.4); Eosinophils Percent Auto 3.4 % (0-4); Hematocrit 31.1 % (42.0-52.0); Hemoglobin 10.2 g/dl (14.0-18.0); Imm Gran Abs Auto 0.03 X10*3/uL (0.00-0.03); Imm Gran Pct Auto 0.4 % (0.0-0.4); Lymphocytes Absolute Auto 1.9 X10*3/uL (1.2-4.9); Lymphocytes Percent Auto 23.7 % (20-40); Mean Corpuscular HGB Conc 32.8 g/dl (31.0-36.0); Mean Corpuscular Hemoglobin 27.8 pg (27.0-33.0); Mean Corpuscular Volume 84.7 fL (80.0-98.0); Mean Platelet Volume 9.8 fL (9.4-12.4); Monocytes Absolute Auto 1.5 X10*3/uL (0.1-1.2); Monocytes Percent Auto 18.1 % (2-11); Neutrophils Absolute Auto 4.4 x10*3/uL (2.0-8.3); Neutrophils Percent Auto 53.8 % (45-73); Platelet Count 194 X10*3/uL (160-400); Red Blood Count 3.67 X10*6/uL (4.60-5.80); Red Cell Distribution Width 14.6 % (11.0-16.0); White Blood Count 8.2 X10*3/uL (4.8-10.8)
--- OUTSIDE RECORDS SUMMARY | 2023-05-31 20:45 | XMS_ITS | Patient Health Record ---
Author Name Unknown Organization [facility] Address [address], [place] [id number] Support Name Relationship Address Phone Richardson Armand [...] Insured Coverage Start Date Coverage End Date [facility] [address] [place] [phone] [id number] Armand Bai Self - patient is the insured MEDICAL (GENERAL) HISTORY Medical History History ICD Code Asthma Diabetes HTN Stomach/GI Problems
[2023-05-31 20:48] LABS: Appearance Urine Clear; Color Urine Yellow; Glucose Urine UA Negative (Negative); Leukocyte Esterase Urine Negative (Negative); Nitrite Urine Negative (Negative); UMIC TRIGGER UACC YES; Urine Blood Small (1+) (Negative); Urine Ketones Negative (Negative); Urine Protein Negative (Neg-Trace)
[2023-05-31 20:53] LABS: Bacteria Urine None Seen (None Seen); Hyaline Casts Urine 0-2 /LPF (0-2); Squamous Epithelial Cell Urine 0-2 /HPF (0-2); WBC Urine 0-5 /HPF (0-5)
[2023-05-31 20:53] LABS: Alanine Aminotransferase 11 U/L (0-40); Albumin Level 3.2 g/dL (3.5-5.0); Alkaline Phosphatase 56 U/L (39-117); Anion Gap 12 (12-20); Aspartate Amino Transferase 19 U/L (5-37); Bilirubin Total 0.3 mg/dL (0.0-1.0); Blood Urea Nitrogen 14 mg/dL (9-16); Carbon Dioxide 23 mmol/L (22-29); Chloride 99 mmol/L (96-108); Creatinine Clr Calc Pharmacy 52.2; Estimated Glomerular Filt Rate 53; Glucose Random 159 mg/dL (60-115); Lipase 22 U/L (8-78); Potassium 3.6 mmol/L (3.3-5.1); Sodium 130 mmol/L (135-145); Total Protein 7.3 g/dL (6.5-8.0)
[2023-05-31 21:00] LABS: Troponin-I High Sensitivity < 2.7 ng/L (<3.5-35.0)
== END 2023-05-31 22:04 | disposition home or self-care (01) ==
PROVIDERS: Emergency Provider Internal Medicine; PCP Nurse Practitioner Family
DX: R10.9 Unspecified abdominal pain (principal); R11.10 Vomiting, unspecified; D64.9 Anemia, unspecified; F17.200 Nicotine dependence, unspecified, uncomplicated; E11.9 Type 2 diabetes mellitus without complications; E78.5 Hyperlipidemia, unspecified; J44.9 Chronic obstructive pulmonary disease, unspecified; Z79.82 Long term (current) use of aspirin; Z79.4 Long term (current) use of insulin; Z79.899 Other long term (current) drug therapy
CPT/HCPCS: 36415; 80053; 81001; 83690; 84484; 85025; 93005; 99283; 99285

== ENCOUNTER 2023-07-16 08:00 | Outpatient (RCR) | payer MEDICARE, MEDICAID, SELFPAY ==
[2023-06-17 08:18] VITALS: BP 151/77; PULSE 81; O2SAT 97
--- NOTE | 2023-06-17 11:03 | MHC.PT.EP ---
[facility] [place] Office [place] Office [place] Office [address] [facility] [address] [phone] F: [phone] F: [phone] F: [phone] F: [phone] Physical Therapy Plan of Care Date of Evaluation: 06/17/23 Date of Surgery: Diagnosis: LOWER EXTREMITY WEAKNESS Assessment: 68 YO MALE WHO CURRENTLY RESIDES IN A RESIDENTIAL AND IS REF TO PT FOR LEs WEAKNESS, PROGRESSIVE X 2 MONTHS PER HIS CAREGIVER. HE INTERMITTENTLY AMB W A ROLLATOR OR W/O ASST DEVICES AND HE ATTENDS AN ADULT DAY PROGRAM MON-FRI. THE Pt HAS DECR LEs FLEXIB, (+) STRENGTH DEFICITS IN [place]ES[place] LEs, ALTERED GAIT MECHANICS (SHUFFLING GAIT) W IMPACTED DYNAMIC BALANCE, AND DECR SAFETY AWARENESS/ SPORADIC MVMTS W FUNCTIONAL MOBILITY. THE Pt WOULD BENEFIT FROM PT TO ADDRESS THE ABOVE AND DEV A HEP FOR CARRYOVER W HIS CAREGIVERS AT HIS RESIDENTIAL. Frequency and Duration: The patient will be seen 2 X WK X 6 WKS Short Term Goals: *INITIATE A HEP *IMPROVE HIP/HS/ANKLE FLEXIBILITY *INCREASE LUMBOPELVIC/ PROX LEs STRENGTH AND STAB *IMPROVE STATIC-> DYNAMIC STANDING BALANCE Financial Associate Goals: *Pt AND CAREGIVERS INDEP W HEP AND FUNCT MOB CARRYOVER *THE Pt DEMON MORE EFFICIENT GAIT MECHANICS ON LEVEL GROUND AND STAIR NEGOTIATION *TESSA HS FLEXIB IMPROVED BY 15* , DF 8* [place] Treatment Plan: Modalities to reduce pain, spasms and effusion. Manual therapy to restore motion and function. Therapeutic exercise to improve strength and flexibility. Neuromuscular re-education for posture and balance. Therapeutic activities to return to functional activities of daily living. Electronically signed by: OSIEL GROVE,PT Please sign and return to therapist. Thank you for your referral.
--- NOTE | 2023-07-24 11:17 | MHC.PT.DC ---
[facility] [place] Office [place] Office [place] Office [address] [facility] [address] [phone] F: [phone] F: [phone] F: [phone] F: [phone] Physical Therapy Discharge Report Diagnosis: LOWER EXTREMITY WEAKNESS Date of Surgery: Date of Evaluation: 06/17/23 Date of Discharge: 07/24/23 Treatments to Date: 4 Cancellations to Date: 1 No Shows to Date: 2 Discharge Status: Recommend MD Follow-up Discharge Summary: AT THE LAST ATTENDED PT APPT, THE Pt PRESENTED WITHOUT HIS W/WALKER, AND ALTERED GAIT MECH IMPACTING THE SAFETY OF HIS OVERALL FUNCT MOBILITY . WE DISCUSSED SAFETY CONCERNS WITH HIS CARE PROVIDER, IQRA, AND ENCOURAGED CS/CG IF Pt DEFERS USE OF ASST DEVICES AT HOME. THE Pt HAS BEEN INCONSISTENT W HIS HEP AND WE HAVE ENCOURAGED PERF W HIS CAREGIVERS AT HIS CARE HOME. WE HAVE ALSO EDUC HIS CARE PROVIDERS RE APPROP FOOTWEAR AND THE POTENTIAL FOR INTERMITTENT CLOSE SUPV WITH FUNCTIONAL ACTIVITIES. THE Pt DID NOT MEET HIS PT GOALS AT THIS TIME- THE Pt DID NOT ATTEND LAST SCHED PT APPT. Electronically signed by: OSIEL GROVE,PT Please sign and return to therapist. Thank you for your referral.
== END 2023-07-24 11:18 | disposition home or self-care (01) ==
LOC: HO.PT 08:00
PROVIDERS: PCP Nurse Practitioner Family; Visit Provider Nurse Practitioner Family
DX: R29.898 Other symptoms and signs involving the musculoskeletal system (principal)
CPT/HCPCS: 97110; 97116; 97162; 97530

== ENCOUNTER 2023-09-02 08:39 | Outpatient (AMB) | payer MEDICARE, MEDICAID, SELFPAY ==
--- NOTE | 2023-09-02 08:51 | A.OFFPC_ITS ---
Vital Signs 09/02/23 08:53 Height 5 ft 6 in Weight 172 lb 4 oz BMI 27.8 BP 140/78 H Blood Pressure Location Lt brachial Position Sitting Pulse 78 Pulse Source Pulse Oximeter Pulse Oximetry (%) 99 Oxygen Delivery Method Room Air Intake Visit Reasons: follow up on medical issues Intake Note: Pt is here to follow up for Medical concerns regarding his walking His program Nurse is with pt today Allergies No Known Allergies Allergy (Mild, Verified 09/02/23 08:59) NOT APPLICABLE Tobacco use date assessed: 01/28/23 Fall risk assessment: No Falls in past year Last assessed Fall Risk: 09/02/23 Dental Screening Dental Screen Date: 09/02/23 Did you have a dental visit in the last 12 months?: No Did you have a dental problem in the last 6 months where you did not have access to dental care?: No Was dental information given to patient?: No HPI follow up on medical issues HPI Details Pt is a diabetic, on a statin. Last A1C was 7.1. Due for microalbumin. Denies polyuria, polydipsia, and neuropathy. Pt denies any signs and symptoms of hypoglycemia and does know how to correct it. Eye exam is up to date. Pt reportedly has an intermittent shuffling gait. He denies any weakness. Pt does not have kyphosis or drooling. Will refer to neurology. Pt has an extensive psych hx. Director Diabetes in room today. [facility] Medical History Chronic bronchitis Schizophrenia Centrilobular emphysema Essential hypertension Hyperlipidemia LDL goal <70 COPD (chronic obstructive pulmonary disease) Smoker Type 2 diabetes mellitus with diabetic polyneuropathy Multiple pulmonary nodules Family History Father Prostate cancer Diabetes Mother Diabetes Hypertension CVD (cardiovascular disease) Social History Household Members: Other Housing: Other Housing Other:: [facility] Do you presently have visiting nurse or other home services: Yes Unable to assess alcohol history related to: Refusing to respond Alcohol intake: unknown Comment: sitter at bedside Patient Tobacco Use Status: Current everyday Tobacco user Tobacco use type: Cigarette Cigarette Packs Per Day: 4 Cigarettes Per Day: 80 Years Smoked: 40 Advance Directives Date on File: 10/25/22 service: No Current occupational status: disabled Cognitive needs: No Hearing needs: No Vision needs: No Questionnaire Thrive Questionnaire Date Thrive assessed: 10/30/22 AUDIT C Alcohol Use Questionnaire (AUDIT-C) 1. How often do you have a drink containing alcohol?: Never Total Score: 0 JESSA-7 AMB Questionnaire JESSA-7 Date JESSA - 7 assessed: 10/30/22 Source: Developed by Drs. Christos Barnes, Viridiana Nguyen, Darrin Becerra and colleagues, with an educational jaspreet from [employer]. Review of Systems Const Reports as per HPI Physical exam (Primary Care) Vital Signs: Last Vital Signs Pulse 78 09/02/23 08:53 BP 140/78 H 09/02/23 08:53 Pulse Ox 99 09/02/23 08:53 Oxygen Delivery Method Room Air 09/02/23 08:53 BMI result Body Mass Index 27.8 Tobacco/Smoking Status: Tobacco use Status Tobacco use date assessed 01/28/23 09/02/23 08:51 Patient Tobacco Use Status Current everyday Tobacco 09/02/23 08:51 Tobacco use type Cigarette 09/02/23 08:51 Thrive Assessment: Date of Thrive Assessment Date Thrive assessed 10/30/22 09/02/23 08:51 Const General: cooperative Orientation/consciousness: patient oriented x3 Resp Other: lungs coarse with wheezing throughout Effort & Inspection: normal respiratory effort Cardio Rate: regular rate Rhythm: regular rhythm Heart sounds: S1 normal heart sound present and S2 normal heart sound present Neuro Other: no kyphosis or drooling noted, arm pull test negative General: patient oriented x3 Cranial nerves: Yes CN's II-XII intact bilaterally Gait exam (Neuro): Shuffling gait present Extrem Other: bilat feet: + sensation with use of monofilament, feet intact, dry skin noted Psych Appearance: grossly normal Mental Status: mental status grossly normal Speech and movement: Normal speech and movement present Affect: normal affect Attitude: cooperative Thought process: Normal thought process present Thought content: Normal thought content present Insight: Good insight present (Psych) Judgement: Good judgement present (Psych) Assessment and Plan Assessment & Plan (1) Shuffling gait: Code(s): R26.89 - Other abnormalities of gait and mobility Plan: Referred to neurology (2) Type 2 diabetes mellitus with diabetic polyneuropathy: Comment: IDDM2 Code(s): E11.42 - Type 2 diabetes mellitus with diabetic polyneuropathy Qualifiers: Diabetes mellitus jail insulin use: with termite treater helper use Qualified Code(s): E11.42 - Type 2 diabetes mellitus with diabetic polyneuropathy; Z79.4 - [facility] (current) use of insulin Plan: labs (3) Microhematuria: Code(s): R31.29 - Other microscopic hematuria Plan: referred to urology, cytology, ct urogram, repeat UA ordered Plan The patient agreed to the use of a medical coding instructor for this encounter. Scribed for MONIKA Verduzco- by maddy Blandon scribe, on 09/02/2023 at 09:20 EST. Orders: Orders CT urogram Today R31.29 - Other microscopic hematuria Fructosamine Today E11.42 - Type 2 diabetes mellitus with diabetic polyneuropathy UA CC w/rflx Micro + Cult Today R31.29 - Other microscopic hematuria Urine Culture Today R31.29 - Other microscopic hematuria Referrals Neurology Referral R26.89 - Other abnormalities of gait and mobility Urology Referral R31.29 - Other microscopic hematuria Coding Level of Care Code Est Pt Level 3 (40221) Diagnoses Shuffling gait R26.89 Type 2 diabetes mellitus with diabetic polyneuropathy, with long-term current use of insulin E11.42; Z79.4 Diabetes mellitus jail insulin use: with termite treater helper use Microhematuria R31.29
[2023-09-02 08:53] VITALS: BP 140/78; PULSE 78; O2SAT 99; BMI 27.8
== END 2023-09-02 09:43 | disposition home or self-care (01) ==
PROVIDERS: PCP Nurse Practitioner Family; Visit Provider Nurse Practitioner Family
DX: R26.89 Other abnormalities of gait and mobility (principal); E11.42 Type 2 diabetes mellitus with diabetic polyneuropathy; Z79.4 Long term (current) use of insulin; R31.29 Other microscopic hematuria
CPT/HCPCS: 99213

== ENCOUNTER 2023-09-02 13:08 | Outpatient (AMB) | payer MEDICARE, MEDICAID, SELFPAY ==
[2023-09-02 13:10] VITALS: BP 130/74; PULSE 86; O2SAT 96
--- NOTE | 2023-09-02 13:10 | HO.NEPHOV_ITS ---
HPI HPI Comments History of Present Illness Details 68 yr old man with a h/o Chronic hyponat remia in a setting of COPD , HTN , CAD and midl CKD Baseline creatinine 1.1 to 1.3 mg/dL h/o AVINASH in the past Here for follow up c/o Leg pain when he walks Never had evaluation for PVD Accompanied by family member h/o smoking 2 PPD PFSH Medical History Chronic bronchitis Schizophrenia Centrilobular emphysema Essential hypertension Hyperlipidemia LDL goal <70 COPD (chronic obstructive pulmonary disease) Smoker Type 2 diabetes mellitus with diabetic polyneuropathy Multiple pulmonary nodules Family History Father Prostate cancer Diabetes Mother Diabetes Hypertension CVD (cardiovascular disease) Social History Household Members: Other Housing: Other Housing Other:: shelter Do you presently have visiting nurse or other home services: Yes Unable to assess alcohol history related to: Refusing to respond Alcohol intake: unknown Comment: sitter at bedside Patient Tobacco Use Status: Current everyday Tobacco user Tobacco use type: Cigarette Cigarette Packs Per Day: 4 Cigarettes Per Day: 80 Years Smoked: 40 Advance Directives Date on File: 10/25/22 service: No Current occupational status: disabled Cognitive needs: No Hearing needs: No Vision needs: No Vital Signs 09/02/23 13:10 Height 5 ft 6 in BP 130/74 Blood Pressure Location Lt brachial Position Sitting Pulse 86 Pulse Source Pulse Oximeter Pulse Oximetry (%) 96 Oxygen Delivery Method Room Air Physical Exam Vital Signs: Last Vital Signs Pulse 86 09/02/23 13:10 BP 130/74 09/02/23 13:10 Pulse Ox 96 09/02/23 13:10 Oxygen Delivery Method Room Air 09/02/23 13:10 Const General: comfortable Nutritional Appearance: well nourished Orientation/consciousness: patient oriented x3 HEENT Head: No normal to inspection Mouth: moist mucous membranes Neck Neck: Yes supple and Yes no JVD Resp Auscultation: rhonchi and rub present Cardio Jugular venous distension: no JVD Palpation: no palpable S3 and no palpable S4 Heart sounds: no rubs GI Palpation (GI): Soft to palpation and nontender Percussion: No Fluid wave present General: Yes no CVA tenderness Back/Spine/Pelvis Back: no CVA tenderness Skin General skin exam: no rashes or lesions noted Neuro General: patient oriented x3 Extrem General: Yes no pedal edema and No clubbing Assessment & Plan Assessment & Plan (1) Chronic hyponatremia: Code(s): E87.1 - Hypo-osmolality and hyponatremia Plan: Most likely due to NON Osmotic ADH release in a setting of COPD Goal pNa > 130 Restrict PO water intake Repeat labs ordered (2) Leg pain: Code(s): M79.606 - Pain in leg, unspecified Plan: r/o PVD REfer to Dr. Camarillo (3) Essential hypertension: Code(s): I10 - Essential (primary) hypertension Plan: BP acceptable NO changes to medications Goal BP < 130/80 (4) CKD (chronic kidney disease) stage 3, GFR 30-59 ml/min: Code(s): N18.30 - Chronic kidney disease, stage 3 unspecified Plan: Renal functions is close to baseline No proteinuria Continue to avoid nephrotoxins including NSAIDS Keep I > ) Work up as outlined (5) Microhematuria: Code(s): R31.29 - Other microscopic hematuria Plan: Microhematuria with significant proteinuria Need to r/o Extra renal causes Will obtain Renal ultrasonogram and basic serology Give the h/o chronic smoking, May need urology evaluation as well Plan . Orders: Orders Comprehensive Met. Panel Today E87.1 - Hypo-osmolality and hyponatremia, M79.606 - Pain in leg, unspecified, N18.30 - Chronic kidney disease, stage 3 unspecified Neutrophil Cytoplasma Ab Today N18.30 - Chronic kidney disease, stage 3 unspecified, R31.29 - Other microscopic hematuria Complement C3 Today N18.30 - Chronic kidney disease, stage 3 unspecified, R31.29 - Other microscopic hematuria Anti Glomerular Basement Memb Today N18.30 - Chronic kidney disease, stage 3 unspecified, R31.29 - Other microscopic hematuria Complete Blood Count Auto Diff Today E87.1 - Hypo-osmolality and hyponatremia, M79.606 - Pain in leg, unspecified, N18.30 - Chronic kidney disease, stage 3 unspecified Complement C4 Today N18.30 - Chronic kidney disease, stage 3 unspecified, R31.29 - Other microscopic hematuria Protein Electrophoresis, Serum Today N18.30 - Chronic kidney disease, stage 3 unspecified, R31.29 - Other microscopic hematuria Referrals Vascular Surgery Referral M79.606 - Pain in leg, unspecified Coding Level of Care Code Est Pt Level 4 (89051) Diagnoses Chronic hyponatremia E87.1 Leg pain M79.606 Essential hypertension I10 CKD (chronic kidney disease) stage 3, GFR 30-59 ml/min N18.30 Microhematuria R31.29 Results Reviewed Nephrology Results: Hgb 10.2 g/dl (14.0-18.0) L 05/31/23 WBC 8.2 X10*3/uL (4.8-10.8) 05/31/23 Plt Count 194 X10*3/uL (160-400) 05/31/23 Sodium 130 mmol/L (135-145) L 05/31/23 Potassium 3.6 mmol/L (3.3-5.1) 05/31/23 Chloride 99 mmol/L (96-108) 05/31/23 Carbon Dioxide 23 mmol/L (22-29) 05/31/23 BUN 14 mg/dL (9-16) 05/31/23 Creatinine 1.34 mg/dL (0.5-1.4) 05/31/23 Calcium 9.0 mg/dL (8.4-10.2) 05/31/23 Urine Protein Negative mg/dL (Neg-Trace) 05/31/23
== END 2023-09-02 13:46 | disposition home or self-care (01) ==
PROVIDERS: PCP Nurse Practitioner Family; Visit Provider Internal Medicine Hypertension Specialist
DX: E87.1 Hypo-osmolality and hyponatremia (principal); M79.606 Pain in leg, unspecified; I10 Essential (primary) hypertension; N18.30 Chronic kidney disease, stage 3 unspecified; R31.29 Other microscopic hematuria
CPT/HCPCS: 99214

== ENCOUNTER → 2023-09-02 13:08 | Outpatient (BNVA) | payer MEDICARE, MEDICAID, SELFPAY | PROVIDERS: PCP Nurse Practitioner Family; Visit Provider Internal Medicine Hypertension Specialist | DX: E87.1 Hypo-osmolality and hyponatremia (principal); I12.9 Hypertensive chronic kidney disease with stage 1 through stage 4 chronic kidney disease, or unspecified chronic kidney disease; N18.30 Chronic kidney disease, stage 3 unspecified; M79.606 Pain in leg, unspecified; R31.29 Other microscopic hematuria; R80.9 Proteinuria, unspecified | CPT/HCPCS: 99212 ==

== ENCOUNTER 2023-10-07 09:30 | Outpatient (REF) | payer MEDICARE, MEDICAID, SELFPAY ==
--- NOTE | ~2023-10-07 | CT_ITS ---
EXAMINATION: CT CHEST WITHOUT CONTRAST CLINICAL INFORMATION: Pulmonary nodule follow-up COMPARISON: Chest x-ray May 11, [address] lung screening November 15, 2022 TECHNIQUE: Multidetector volumetric CT imaging of the chest was done. Axial MIP volume rendering provided. Sagittal and coronal reformatted images were obtained. This CT examination was performed using dose optimization techniques as appropriate, variously including the following: *Automated exposure control *Adjustment of mA and/or kV according to patient size (this includes techniques or standardized protocols for targeted exams where dose is matched to indication/reason for exam; i.e. extremities or head) *Use of iterative reconstruction technique DLP: 193 mGy-cm FINDINGS: Central airways are patent although there are some filling defects again noted within the airways, particularly within the right lower lobe, nonspecific. The lungs are adequately aerated. Moderate emphysematous changes are noted. Subpleural reticular changes are also noted diffusely. Interval development of suspected compressive atelectasis within the posterior right lung base. There is no pleural effusion. No pneumothorax. Several pulmonary nodules are again demonstrated, most which are relatively stable in size, however, a few are mildly increased in size. For example there is a 6 mm pleural-based nodule within the right upper lobe on image 201/642, series 5 which previously measured 4.5 mm. I do not appreciate any definitive new suspicious pulmonary nodules. The heart is normal in size. Coronary artery calcifications are present. There is no pericardial effusion. Normal caliber thoracic aorta. No gross mediastinal or hilar lymphadenopathy. Similar small calcification within the thyroid gland. No pathologically enlarged axillary lymph nodes bilaterally. Visualized portions of the upper abdomen demonstrate a small right renal cyst. Moderate diffuse degenerative changes of the spine. CT/CT chest wo IV con IMPRESSION: 1. Interval development of suspected compressive atelectasis within the posterior right lung base. This is likely secondary to filling defects throughout airways within the right lower lobe which are nonspecific but possibly patient registration representative of mucus plugging. Bronchoscopy may be warranted. 2. Several pulmonary nodules are again demonstrated, most which are relatively stable in size, however, a few appear mildly increased in size. I do not appreciate any definitive new suspicious pulmonary nodules. Attention on follow-up imaging recommended. 3. Moderate emphysema with superimposed interstitial lung disease. Fleischner guidelines were followed.
== END 2023-10-07 09:31 | disposition home or self-care (01) ==
LOC: HO.CT 09:30
PROVIDERS: PCP Nurse Practitioner Family; Visit Provider Hospitalist
DX: R91.8 Other nonspecific abnormal finding of lung field (principal)
CPT/HCPCS: 71250

== ENCOUNTER 2023-10-13 15:14 | Outpatient (AMB) | payer MEDICARE, MEDICAID, SELFPAY ==
[2023-10-13 15:24] VITALS: PULSE 77; O2SAT 98; BMI 30.5
--- NOTE | 2023-10-13 15:24 | A.OFFVIS_ITS ---
Intake Vital Signs 10/13/23 15:24 Height 5 ft 6 in Weight 189 lb BMI 30.5 Pulse 77 Pulse Source Pulse Oximeter Pulse Oximetry (%) 98 Oxygen Delivery Method Room Air Intake Visit Reasons: pulmonary nodule Packaging Mechanic Required: No Allergies No Known Allergies Allergy (Mild, Verified 10/13/23 15:25) NOT APPLICABLE HPI HPI Comments History of Present Illness Details The patient is a 68-year-old gentleman active smoker with underlying pulmonary nodules presenting with worsening cough and shortness of breath. Patient is having worsening chest congestion. Moderate severity. Significant chest tightness and wheezing. He is also participating in the lung cancer screening program. His last CT scan was back in November 2022 where he was found to have multiple pulmonary nodules. Some or endobronchial. He did follow-up with thoracic surgery afterwards. At this point the patient will have additional CT scans. In the meantime he does have significant rhonchi and wheezing on examination. He understands that he needs to quit smoking. He is agreeable to cutting down at this time. In the office we did give him a nebulized treatment in the did help him. Will going to provide him with a nebulizer. He also needs an Acapella valve per chest PT. Will continue to monitor his pulmonary nodules and is endobronchial densities. Likely mucus. If he continues to have persistent endobronchial disease then a bronchoscopy will be warranted. 10/13/2023 the patient is here for pulmon eileen follow-up visit. The patient overall is doing a little better. He is tolerating the Trelegy well. He also tolerating the azithromycin 3 times a week. He is still bringing up phlegm. Still feeling congested. Moderate severity. He is still smoking unfortunately. We did review his CT scan of the chest. It appears that he has a right lower lobe airspace disease was also endobronchial disease and potential obstruction. Need to rule out endobronchial mass. This can result in a postobstructive pneumonia. Explained the bronchoscopy to the patient he is agreeable to undergoing the bronchoscopy at this time. Will continue the current therapy and will plan for the bronchoscopy. Further recommendation based on forthcoming data. [facility] Medical History Chronic bronchitis Schizophrenia Centrilobular emphysema Essential hypertension Hyperlipidemia LDL goal <70 COPD (chronic obstructive pulmonary disease) Smoker Type 2 diabetes mellitus with diabetic polyneuropathy Multiple pulmonary nodules Family History Father Prostate cancer Diabetes Mother Diabetes Hypertension CVD (cardiovascular disease) Social History Household Members: Other Housing: Other Housing Other:: [facility] Do you presently have visiting nurse or other home services: Yes Unable to assess alcohol history related to: Refusing to respond Alcohol intake: unknown Comment: sitter at bedside Patient Tobacco Use Status: Current everyday Tobacco user Tobacco use type: Cigarette Cigarette Packs Per Day: 4 Cigarettes Per Day: 80 Years Smoked: 40 Advance Directives Date on File: 10/25/22 service: No Current occupational status: disabled Cognitive needs: No Hearing needs: No Vision needs: No Review of Systems Const Denies chills and Denies fever(s) Eyes Denies blurry vision ENT Denies vertigo, Denies dizziness and Denies sore throat Card Denies chest pain at rest, Denies chest pain with activity, Denies diaphoresis, Denies dyspnea and Reports dyspnea on exertion Resp Reports chest congestion, Reports cough, Denies dyspnea, Reports dyspnea on exertion and Reports wheezing GI Denies abdominal pain, Denies melena, Denies hematochezia, Denies constipation, Denies diarrhea and Denies loose stools Denies hematuria Musc Denies numbness and Denies tingling Skin/Breast Denies lesions Neuro Denies vertigo, Denies dizziness, Denies numbness and Denies tingling Psych Denies anxiety, Denies depression, Denies homicidal ideation, Denies suicidal ideation and Denies other (substance abuse) Aller/Immun Reports wheezing Physical Exam Const General: comfortable HEENT Head: Yes normocephalic Neck Neck: Yes supple Chest Chest palpation & inspection: normal inspection of the chest Resp Effort & Inspection: normal respiratory effort Auscultation: rhonchi and diminished lung sounds Cardio Rate: regular rate Rhythm: regular rhythm Heart sounds: S1 normal heart sound present and S2 normal heart sound present GI Palpation (GI): Soft to palpation Skin General skin exam: no rashes or lesions noted Extrem General: Yes no clubbing, cyanosis or edema Results Reviewed Results Reviewed: CT chest personally reviewed by me: [address] [address] [address] Scan Report Signed Patient: Armand Bai MR#: [id number] : 1955 Acct:[id number] Age/Sex: 68 / M ADM Date: 10/07/23 Loc: HO.CT Attending Dr: James Foley MD Ordering Physician: James Foley MD Date of Service: 10/07/23 Procedure(s): CT chest wo IV con Accession Number(s): [id number] cc: Nicholas Rashid [facility]-; James Foley MD~ EXAMINATION: CT CHEST WITHOUT CONTRAST CLINICAL INFORMATION: Pulmonary nodule follow-up COMPARISON: Chest x-ray May 11, [address] lung screening November 15, 2022 TECHNIQUE: Multidetector volumetric CT imaging of the chest was done. Axial MIP volume rendering provided. Sagittal and coronal reformatted images were obtained. This CT examination was performed using dose optimization techniques as appropriate, variously including the following: *Automated exposure control *Adjustment of mA and/or kV according to patient size (this includes techniques or standardized protocols for targeted exams where dose is matched to indication/reason for exam; i.e. extremities or head) *Use of iterative reconstruction technique DLP: 193 mGy-cm FINDINGS: Central airways are patent although there are some filling defects again noted within the airways, particularly within the right lower lobe, nonspecific. The lungs are adequately aerated. Moderate emphysematous changes are noted. Subpleural reticular changes are also noted diffusely. Interval development of suspected compressive atelectasis within the posterior right lung base. There is no pleural effusion. No pneumothorax. Several pulmonary nodules are again demonstrated, most which are relatively stable in size, however, a few are mildly increased in size. For example there is a 6 mm pleural-based nodule within the right upper lobe on image 201/642, series 5 which previously measured 4.5 mm. I do not appreciate any definitive new suspicious pulmonary nodules. The heart is normal in size. Coronary artery calcifications are present. There is no pericardial effusion. Normal caliber thoracic aorta. No gross mediastinal or hilar lymphadenopathy. Similar small calcification within the thyroid gland. No pathologically enlarged axillary lymph nodes bilaterally. Visualized portions of the upper abdomen demonstrate a small right renal cyst. Moderate diffuse degenerative changes of the spine. CT/CT chest wo IV con IMPRESSION: 1. Interval development of suspected compressive atelectasis within the posterior right lung base. This is likely secondary to filling defects throughout airways within the right lower lobe which are nonspecific but possibly customer service representative teacher of mucus plugging. Bronchoscopy may be warranted. 2. Several pulmonary nodules are again demonstrated, most which are relatively stable in size, however, a few appear mildly increased in size. I do not appreciate any definitive new suspicious pulmonary nodules. Attention on follow-up imaging recommended. 3. Moderate emphysema with superimposed interstitial lung disease. Fleischner guidelines were followed. Dictated By: Abdullahi Nassar MD Signed By: <Electronically signed by Abdullahi Nassar MD in OV> 10/09/23 0845 DD/ 1024 TD/TT: Gore Maker: Assessment & Plan Assessment & Plan (1) COPD (chronic obstructive pulmonary disease): Code(s): J44.9 - Chronic obstructive pulmonary disease, unspecified Qualifiers: COPD type: chronic bronchitis Chronic bronchitis type: mucopurulent Qualified Code(s): J41.1 - Mucopurulent chronic bronchitis (2) Multiple pulmonary nodules: Code(s): R91.8 - Other nonspecific abnormal finding of lung field (3) Smoker: Code(s): F17.200 - Nicotine dependence, unspecified, uncomplicated (4) Pneumonia: Code(s): J18.9 - Pneumonia, unspecified organism Qualifiers: Laterality: right Lung location: lower lobe of lung Pneumonia type: due to unspecified organism Qualified Code(s): J18.9 - Pneumonia, unspecified organism Plan continue Trelegy CHASE nebulizer therapy CPT with acapella valve continue Azithromycin MWF smoking cessation plan for bronchosocopy to assess for endobronchial disease/pneumonia F/U after bronchoscopy Coding Level of Care Code Est Pt Level 4 (08505) Diagnoses Mucopurulent chronic bronchitis J41.1 COPD type: chronic bronchitis Chronic bronchitis type: mucopurulent Multiple pulmonary nodules R91.8 Smoker F17.200 Pneumonia of right lower lobe due to infectious organism J18.9 Laterality: right Lung location: lower lobe of lung Pneumonia type: due to unspecified organism Time Spent (min) 18
== END 2023-10-13 16:04 | disposition home or self-care (01) ==
PROVIDERS: PCP Nurse Practitioner Family; Visit Provider Hospitalist
DX: J41.1 Mucopurulent chronic bronchitis (principal); R91.8 Other nonspecific abnormal finding of lung field; F17.200 Nicotine dependence, unspecified, uncomplicated; J18.9 Pneumonia, unspecified organism
CPT/HCPCS: 99214

== ENCOUNTER → 2023-10-13 15:14 | Outpatient (BNVA) | payer MEDICARE, MEDICAID, SELFPAY | PROVIDERS: PCP Nurse Practitioner Family; Visit Provider Hospitalist | DX: J41.1 Mucopurulent chronic bronchitis (principal); J18.9 Pneumonia, unspecified organism; R91.8 Other nonspecific abnormal finding of lung field; F17.210 Nicotine dependence, cigarettes, uncomplicated | CPT/HCPCS: 99212 ==

== ENCOUNTER 2023-10-15 09:20 | Outpatient (REF) | payer MEDICARE, MEDICAID, SELFPAY ==
--- NOTE | ~2023-10-15 | CT_ITS ---
EXAMINATION: CT UROGRAM WITHOUT AND WITH CONTRAST CLINICAL INFORMATION: Reason for Exam R31.29 - Other microscopic hematuria COMPARISON: 05/05/2014 TECHNIQUE: Helical scanning was performed with collimation through the abdomen and pelvis precontrast. Helical scanning was then repeated with submillimeter collimation through the abdomen and pelvis in the pyelogram phase with use of 100 mL of Omnipaque 300 intravenous contrast. Sagittal and coronal 2-D reconstructions were obtained. Multiple additional 3-D volume rendered images were obtained of the kidneys and collecting systems on an independent workstation under concurrent supervision. This CT examination was performed using dose optimization techniques as appropriate, variously including the following: *Automated exposure control *Adjustment of mA and/or kV according to patient size (this includes techniques or standardized protocols for targeted exams where dose is matched to indication/reason for exam; i.e. extremities or head) *Use of iterative reconstruction technique DLP: 605.24 mGy-cm FINDINGS: LUNG BASES: Redemonstration of compressive atelectasis in the right lower lobe. ABDOMINAL AND PELVIC WALL: Bilateral fat-containing inguinal hernias. LIVER AND BILIARY TREE: Unremarkable. GALLBLADDER: Unremarkable. PANCREAS: Unremarkable. SPLEEN: Unremarkable. ADRENAL GLANDS: Unremarkable. KIDNEYS AND URETERS: The kidneys are normal in size, shape, and attenuation. No hydronephrosis, hydroureter, or calculi seen. No perinephric stranding. No obvious mass lesion or filling defect is seen in the collecting systems or ureters. Benign-appearing bilateral renal cysts. Additional subcentimeter hypoattenuating renal lesions are too small to characterize. GASTROINTESTINAL TRACT: Unremarkable. Appendix is within normal limits. VASCULAR: Aortic atherosclerotic calcifications, no aneurysmal dilation. LYMPH NODES/PERITONEUM: No lymphadenopathy. FREE FLUID: None. BLADDER: Unremarkable. PELVIC VISCERA: Prostate is mildly enlarged. OSSEOUS STRUCTURES: Unremarkable. CT/CT urogram IMPRESSION: * No obstructing renal collecting system lesion. No hydronephrosis or nephrolithiasis. Please note this negative study does not obviate the need for direct visualization if clinically warranted. * Benign-appearing bilateral renal cysts. Additional subcentimeter hypoattenuating renal lesions are too small to characterize. * Redemonstration of compressive atelectasis in the right lower lobe.
[2023-10-15] MEDS: iohexoL 350 MG/ML 100 ML INFUS..BTL 85 ML IV (10:34)
[2023-10-16 06:25] LABS: Creatinine POC 0.9 mg/dL (0.5-1.4); GFR POC > 60
== END 2023-10-15 09:21 | disposition home or self-care (01) ==
LOC: HO.CT 09:20
PROVIDERS: PCP Nurse Practitioner Family; Visit Provider Nurse Practitioner Family
DX: R31.29 Other microscopic hematuria (principal)
CPT/HCPCS: 74178; 82565; Q9967

== ENCOUNTER 2023-11-06 06:12 | Day surgery (SDC) | payer MEDICARE, MEDICAID, SELFPAY ==
[2023-11-04 08:51] VITALS: BMI 30.5
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
[2023-11-06] VITALS (7 sets, daily range): BP systolic 120–147; BP diastolic 62–78; PULSE 65–75; RESP 20–24; TEMP 36.1–36.3; O2SAT 96–99; BMI 30.5
[2023-11-06 06:45] LABS: Glucose, Whole Blood 94 mg/dL (60-115)
[2023-11-06 07:04] LABS: Anion Gap 11 (12-20); Blood Urea Nitrogen 15 mg/dL (9-16); Calcium 9.1 mg/dL (8.4-10.2); Carbon Dioxide 25 mmol/L (22-29); Chloride 103 mmol/L (96-108); Creatinine Clr Calc Pharmacy 72.5; Estimated Glomerular Filt Rate > 60; Glucose Fasting 94 mg/dL (60-99); Sodium 135 mmol/L (135-145)
--- NOTE | 2023-11-06 08:03 | MHC.SHP ---
Pre-Procedural Eval Section A - 24 Hr Update-Section A only Date of Service: 11/06/23 The patient is an INPATIENT: No Changes since office visit: No Cold of Flu in the past 2 weeks, No New Medical Problems, No Changes in Medication and No Patient answered all questions The patient has been examined within 24 hours of the surgical procedure. The History & Physical has been completed within 30 days and I have reviewed it.: No Section B - Complete if H&P > 30 days Chief Complaint: Pneumonia, unspecified organism Details of Present Illness: He is still bringing up phlegm. Still feeling congested. Moderate severity. He is still smoking unfortunately. We did review his CT scan of the chest. It appears that he has a right lower lobe airspace disease was also endobronchial disease and potential obstruction. Need to rule out endobronchial mass. This can result in a postobstructive pneumonia. Relevant Family History (Specify if Yes): No Relevant Social History: None Present Medications: see Short Stay Collaborative assessment Medical History: No relevant PMH History of Previous Operations: Relevant previous surgery/procedure and date(s) Allergies: Allergies Allergy/AdvReac Type Severity Reaction Status Date / Time No Known Allergies Allergy Mild NOT Verified 10/13/23 15:25 APPLICABLE Review of Systems Sugical H&P ROS: Negative: Constitution, Cardiovascular, Neurological, Psychiatric, Hem-Onc, Allergic/Immunologic and Gastrointestinal and Yes, Specify: Respiratory (cough) Exam Surgical H&P Exam: Normal: HEENT, Normal: Heart, Normal: Lungs, Normal: Extremities, Normal: Abdomen, Normal: Skin and Normal: Neurological Plan Diagnosis/Plan: Unchanged (plan for bronchospy to assess area of atelectasis) I have reviewed the history and physical and performed a pertinent physical examination on my patient. No changes have occurred unless specified. Time Spent With Patient Time: Total time managing care of this patient today ____ minutes.
--- NOTE | 2023-11-06 08:59 | P.BOP_ITS ---
Brief Operative Note Date of Service: 11/06/23 Pre-op diagnosis: atelectasis, pneumonia Post-op diagnosis: other (foreign body aspiration, post obstructive pneumonia) Procedure: Bronchoscopy with basket removal of foreign body, biopsy, brushings and washings Implants: Surgeon: James Foley MD Anesthesia: GETA Was an Customer Support Coordinator used for this Procedure?: No Estimated blood loss (mL): 0 Pathology: other (Foreign body, kaden biopsy) Condition: stable Disposition: same day
--- NOTE | 2023-11-06 10:12 | OP_ITS ---
DATE OF SERVICE: 11/06/2023 SURGEON: James Foley MD PREOPERATIVE DIAGNOSIS: POSTOPERATIVE DIAGNOSIS: PROCEDURE PERFORMED: Bronchoscopy with basket removal of foreign body, washings, brushings, and endobronchial biopsy. ESTIMATED BLOOD LOSS: COMPLICATIONS: ANESTHESIA: General endotracheal anesthesia. The consent was obtained from the patient. ASSISTANTS: SPECIMENS: PREOPERATIVE DIAGNOSES: Atelectasis and pneumonia. POSTOPERATIVE DIAGNOSES: Foreign body aspiration and postobstructive pneumonia. PROCEDURE IN DETAIL: After the patient was adequately sedated, the flexible digital bronchoscope was inserted via the ET tube to the level of the main kaden. Main kaden appears split, although there was a slight growth on main kaden itself. It did not appear vascular. After that, the bronchoscope was then navigated through the right main stem bronchus, where there was significant amount of purulent secretions causing near obstruction of the bronchus intermedius and also the right main stem bronchus. Microscopic brushes introduced and sent to appropriate location. Then, using washings, therapeutic clean out of the purulent secretions were removed and there appeared to be a circular type of foreign body obstructing the right lower lobe airway. Using an endovascular basket, it was introduced into the airway. I was able to encircle the foreign body, grab it and it was subsequently removed with some difficulty, but removed completely. After the purulent secretions were noted post the distal to the foreign body obstruction and the washings were provided with complete clearance of any debris or purulent secretion. The patient then after mucous secretions also in the left lung that was cleared. No endobronchial lesions or masses noted except the slight more area in the main kaden, likely reactive changes. Using forceps, a couple of endobronchial biopsies were collected from the small growth on the main kaden and sent to Pathology. After that, the bronchoscope was then removed. No evidence of any active bleeding at the end of the procedure and total procedure time was approximately 15 minutes. The patient tolerated the procedure well without any complications. MD YAHAIRA Hooker/EULOGIO / [phone]
== END 2023-11-06 10:26 | disposition home or self-care (01) ==
PROVIDERS: Nurse Practitioner; PCP Nurse Practitioner Family; Visit Provider Hospitalist
PROC: 0BJ08ZZ Inspection of Tracheobronchial Tree, Via Natural or Artificial Opening Endoscopic (ICD-10-PCS; CPT 31622; principal; 2023-11-06 08:00)
DX: J18.8 Other pneumonia, unspecified organism (principal); J98.11 Atelectasis; J43.2 Centrilobular emphysema; J42 Unspecified chronic bronchitis; R91.8 Other nonspecific abnormal finding of lung field; E11.42 Type 2 diabetes mellitus with diabetic polyneuropathy; E11.22 Type 2 diabetes mellitus with diabetic chronic kidney disease; I12.9 Hypertensive chronic kidney disease with stage 1 through stage 4 chronic kidney disease, or unspecified chronic kidney disease; N18.30 Chronic kidney disease, stage 3 unspecified; D64.9 Anemia, unspecified; F20.9 Schizophrenia, unspecified; Z79.4 Long term (current) use of insulin; Z79.85 Long-term (current) use of injectable non-insulin antidiabetic drugs; Z79.51 Long term (current) use of inhaled steroids; Z79.899 Other long term (current) drug therapy; F17.210 Nicotine dependence, cigarettes, uncomplicated
CPT/HCPCS: 31635; 31625; 31623; 36415; 80048; 82947; 87070; 87077; 87186; 87205; 88112; 88300; 88305; J0171; J2704; J3010

== ENCOUNTER → 2023-11-06 06:12 | Outpatient (BNV) | payer MEDICARE, MEDICAID, SELFPAY | PROVIDERS: PCP Nurse Practitioner Family; Visit Provider Hospitalist | DX: J18.9 Pneumonia, unspecified organism (principal) | CPT/HCPCS: 31623; 31625; 31635 ==

== ENCOUNTER 2023-11-11 08:52 | Outpatient (REF) | payer MEDICARE, MEDICAID, SELFPAY | END 2023-11-11 08:53 | disposition home or self-care (01) | LOC: HO.LNP 08:52 | PROVIDERS: PCP Nurse Practitioner Family; Visit Provider Nurse Practitioner Family | DX: Z13.89 Encounter for screening for other disorder (principal) | CPT/HCPCS: 81003; 99202 ==

== ENCOUNTER 2023-11-11 08:52 | Outpatient (AMB) | payer MEDICARE, MEDICAID, SELFPAY ==
--- NOTE | 2023-11-11 09:05 | MHC.OFFVIS ---
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: No Accompanied by: typer Allergies No Known Allergies Allergy (Mild, Verified 11/11/23 09:40) NOT APPLICABLE Medication List - Last Reconciled 11/11/23 by ADAMS Yu acetaminophen ER (Tylenol 8 Hour) 650 mg PO Q6H PRN 30 days albuterol sulfate 90 mcg/actuation 2 inhalations inhalation Q4-6H PRN alcohol swabs (Alcohol Prep Pads) 1 pad topical DAILY 30 days amlodipine 10 mg PO DAILY 90 days aspirin (Adult Low Dose Aspirin) 81 mg PO DAILY atorvastatin 10 mg PO BEDTIME benztropine 2 mg PO BID blood sugar diagnostic (FreeStyle Lite Strips) Use to check blood sugar once a day blood-glucose meter (FreeStyle Lite Meter kit) As directed cholecalciferol (vitamin D3) 50 mcg PO DAILY divalproex ER 1,500 mg PO BEDTIME docusate sodium 100 mg PO DAILY PRN dulaglutide (Trulicity) 0.75 mg (0.5 mL) subcut FR@0900 fluoxetine 10 mg PO DAILY fluphenazine HCl 2.5 mg PO BEDTIME mxtxwayacvj-cpnrpsxbe-jgvskffb 100-62.5-25 mcg (Trelegy Ellipta) 1 inh inhalation DAILY 30 days gabapentin 600 mg PO BID hydrocortisone 2.5% 1 appl [place] BID-QID PRN hydrocortisone 2.5% appl topical insulin degludec (Tresiba FlexTouch U-100 insulin) 10 units (0.1 mL) subcut DAILY ipratropium-albuterol 0.5 mg-3 mg(2.5 mg base)/3 mL 3 mL inhalation BID 30 days lancets (Ultra-Care Lancets) 30 gauge miscellaneous TID levofloxacin 250 mg PO DAILY 10 days nebulizers As directed olanzapine 10 mg PO BEDTIME olanzapine 20 mg PO BEDTIME omeprazole 20 mg PO BID pen needle, diabetic (BD Ultra-Fine Mini Pen Needle) As directed to inject insulin daily propranolol 10 mg PO .AM propranolol 10 mg PO .PM sennosides 17.2 mg (2 x 8.6 mg) PO DAILY PRN sodium chloride 1,000 mg PO BID umeclidinium 62.5 mcg/actuation (Incruse Ellipta) 1 inh inhalation DAILY vitamin E 1,000 units PO DAILY HPI HPI Comments History of Present Illness Details Armand is a very pleasant 68-year-old Khmer-speaking male patient of Dr. Cruz. He has a past medical history of chronic bronchitis, schizophrenia, hypertension, COPD, type 2 diabetes, multiple pulmonary nodules, and nicotine dependence. He presents to the office today as a new patient for microscopic hematuria in the setting of nicotine dependence. In discussion with the patient and his tour consultant today as the patient lives in a fdc he reports smoking since the age of 12 in smokes approximately 2 packs of cigarettes per day. Review of patient's chart it appears CT urogram was ordered and performed. These results were reviewed with the patient and his tour consultant today. No obvious mass lesion or filling defect is seen in the collecting system or ureters. Benign-appearing bilateral renal cysts. The bladder is unremarkable. Patient and tour consultant deny any other urological issues or concerns. Discussed reasons for blood in the urine may include but are not limited to kidney stones, cancer in the urinary tract, BPH, kidney stone disease or inflammatory conditions of the urinary tract. Discussed workup to include cystoscopy evaluation. In office urinalysis results with microscopic hematuria will send for urine cytology. He otherwise offers no other issues or concerns at this time. [facility] Medical History Lives in fdc Chronic bronchitis Schizophrenia Centrilobular emphysema Essential hypertension Hyperlipidemia LDL goal <70 COPD (chronic obstructive pulmonary disease) Smoker Type 2 diabetes mellitus with diabetic polyneuropathy Multiple pulmonary nodules Family History Father Prostate cancer Diabetes Mother Diabetes Hypertension CVD (cardiovascular disease) Social History Household Members: Other Housing: Other Housing Other:: residential Do you presently have visiting nurse or other home services: Yes Unable to assess alcohol history related to: Refusing to respond Alcohol intake: unknown Patient Tobacco Use Status: Current everyday Tobacco user Tobacco use type: Cigarette Cigarette Packs Per Day: 4 Cigarettes Per Day: 80 Years Smoked: 40 Advance Directives Date on File: 10/25/22 service: No Current occupational status: disabled Cognitive needs: No Hearing needs: No Vision needs: No Review of Systems Const Unobtainable due to mental condition Physical Exam Const General: cooperative, comfortable, no acute distress, well developed and tired appearing (Patient intermittently sleeping throughout today's office visit) Orientation/consciousness: oriented to person Limitations: ambulation with walker HEENT Head: Yes normal to inspection Eyes General: appearance normal, both eyes and all related structures Neck Neck: Yes normal visual inspection Chest Chest palpation & inspection: normal inspection of the chest Resp Effort & Inspection: normal respiratory effort Cardio Rate: regular rate GI Inspection: Yes normal to inspection General: Yes no CVA tenderness Back/Spine/Pelvis Back: no CVA tenderness Neuro Other: Shuffling gait General: oriented to person Extrem General: Yes normal to inspection Psych Mental Status: other (Patient intermittently sleeping throughout today's assessment) Speech and movement: Clear speech present Attitude: cooperative Insight: Poor insight present (Psych) Judgement: Poor judgement present (Psych) Results AMB Urinalysis, Automated UA Leukoctes 0 Nixon/uL Last Edit by Camron Ibarra on 11/11/23 09:36 UA Nitrite Negative Last Edit by [email or web address] on 11/11/23 09:36 UA Urobilinogen 0.2 mg/dL Last Edit by [employer] on 11/11/23 09:36 UA Protein 0 mg/dL Last Edit by [employer] on 11/11/23 09:36 UA pH 6.0 Last Edit by [employer] on 11/11/23 09:36 UA Blood 10 Aashish/uL Last Edit by [employer] Ibarra on 11/11/23 09:36 UA Specific Cadwell 1.015 Last Edit by [employer] on 11/11/23 09:36 UA Ketone Negative Last Edit by [employer] on 11/11/23 09:36 UA Bilirubin 0 mg/dL Last Edit by [email or web address] on 11/11/23 09:36 UA Glucose 0 mg/dL Last Edit by [employer] on 11/11/23 09:36 Results Reviewed Results Reviewed: Laboratory Last Values Urine pH (Auto) 6.0 11/11/23 09:17 Specific Cadwell (Auto) 1.015 11/11/23 09:17 Urine Protein (Auto) 0 mg/dL 11/11/23 09:17 Glucose (UA)(Auto) 0 mg/dL 11/11/23 09:17 Urine Ketones (Auto) Negative 11/11/23 09:17 Urine Blood (Auto) 10 Aashish/uL 11/11/23 09:17 Urine Nitrite (Auto) Negative 11/11/23 09:17 Urine Bilirubin (Auto) 0 mg/dL 11/11/23 09:17 Urine Urobilinogen (Auto) 0.2 mg/dL 11/11/23 09:17 Leukocyte Esterase (Auto) 0 Nixon/uL 11/11/23 09:17 Date of Service: 10/15/23 Procedure(s): CT urogram FINDINGS: LUNG BASES: Redemonstration of compressive atelectasis in the right lower lobe. ABDOMINAL AND PELVIC WALL: Bilateral fat-containing inguinal hernias. LIVER AND BILIARY TREE: Unremarkable. GALLBLADDER: Unremarkable. PANCREAS: Unremarkable. SPLEEN: Unremarkable. ADRENAL GLANDS: Unremarkable. KIDNEYS AND URETERS: The kidneys are normal in size, shape, and attenuation. No hydronephrosis, hydroureter, or calculi seen. No perinephric stranding. No obvious mass lesion or filling defect is seen in the collecting systems or ureters. Benign-appearing bilateral renal cysts. Additional subcentimeter hypoattenuating renal lesions are too small to characterize. GASTROINTESTINAL TRACT: Unremarkable. Appendix is within normal limits. VASCULAR: Aortic atherosclerotic calcifications, no aneurysmal dilation. LYMPH NODES/PERITONEUM: No lymphadenopathy. FREE FLUID: None. BLADDER: Unremarkable. PELVIC VISCERA: Prostate is mildly enlarged. OSSEOUS STRUCTURES: Unremarkable. IMPRESSION: * No obstructing renal collecting system lesion. No hydronephrosis or nephrolithiasis. Please note this negative study does not obviate the need for direct visualization if clinically warranted. * Benign-appearing bilateral renal cysts. Additional subcentimeter hypoattenuating renal lesions are too small to characterize. * Redemonstration of compressive atelectasis in the right lower lobe. Assessment & Plan Assessment & Plan (1) Microhematuria: Code(s): R31.29 - Other microscopic hematuria (2) Smoker: Code(s): F17.200 - Nicotine dependence, unspecified, uncomplicated Plan In office urinalysis results reviewed with the patient today; will send for urine cytology. Patient currently denies any bothersome urinary issues or concerns. 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 Discussed at length potential causes of microscopic hematuria. Discussed, educated, and stressed the importance of limiting nicotine dependence for overall health and well-being. Will schedule for in office cystoscopy for further assessment evaluation. Follow-up in office cystoscopy; or sooner with any issues, concerns, and or questions. Orders: Orders AMB Urinalysis Automated Today Z13.9 - Encounter for screening, unspecified Urine Cytology Today R31.29 - Other microscopic hematuria Patient Instructions: The patient had an opportunity to ask questions regarding the treatment plan. All questions were answered. Physical exam, labs, and imaging were discussed and reviewed in detail. As well as risks, benefits, and discussion of treatment choices. No major barriers to understanding were identified. The patient expressed understanding and agreement with the above treatment plan. The patient was made aware they should contact our office by phone for worsening of their current condition, the appearance of new symptoms, or with any questions or concerns. Compliance is encouraged with any medications and follow up testing that is ordered. It is a privilege to be allowed the opportunity to participate in? your urological care.? Again, if you have any questions or concerns If you have any questions or concerns please do not hesitate to contact me. The office is [phone]. This note is constructed using voice recognition software. While every effort has been made to ensure accuracy stand up comedian errors may have been included. Yours sincerely, ADAMS Yu Coding Level of Care Code New Pt Level 3 (65251) Diagnoses Microhematuria R31.29 Smoker F17.200
== END 2023-11-11 09:41 | disposition home or self-care (01) ==
PROVIDERS: PCP Nurse Practitioner Family; Visit Provider Nurse Practitioner Family
DX: R31.29 Other microscopic hematuria (principal); F17.200 Nicotine dependence, unspecified, uncomplicated
CPT/HCPCS: 99203; 99213

== ENCOUNTER 2023-11-11 17:29 | Outpatient (REF) | payer MEDICARE, MEDICAID, SELFPAY ==
[2023-11-11 17:32] LABS: Urine Cytology See Pathology rpt
== END 2023-11-11 17:30 | disposition home or self-care (01) ==
LOC: HO.LNP 17:29
PROVIDERS: Visit Provider Nurse Practitioner Family
DX: R31.29 Other microscopic hematuria (principal); Z79.899 Other long term (current) drug therapy
CPT/HCPCS: 81003; 88112; 99202

== ENCOUNTER 2023-11-25 17:51 | Emergency (ER) | payer MEDICARE, MEDICAID, SELFPAY ==
--- NOTE | ~2023-11-25 | XR_ITS ---
EXAMINATION: XR CHEST CLINICAL INFORMATION: Chest pain. COMPARISON: CT chest 10/07/2023. Chest radiograph 05/11/2023. TECHNIQUE: Frontal view of the chest was obtained. FINDINGS: Unchanged cardiomediastinal silhouette. Bibasilar platelike opacities. No pleural effusion or pneumothorax. Similar degree of mild diffuse interstitial prominence. Unchanged mild asymmetric elevation of the left hemidiaphragm. No acute osseous findings. XR/XR chest 1V IMPRESSION: Bibasilar platelike opacities suggesting subsegmental atelectasis. No pleural effusion or pneumothorax.
[2023-11-25 18:05] VITALS: BP 170/98; PULSE 76; O2SAT 98
[2023-11-25 18:09] VITALS: BP 139/68; PULSE 77; RESP 18; TEMP 36.8; O2SAT 95; BMI 25.9
--- NOTE | 2023-11-25 18:14 | ED.GENADULT ---
HPI - General Adult General Chief complaint: Altered Mental Status Stated complaint: general weakness Time Seen by Provider: 11/25/23 18:25 History of Present Illness HPI narrative: This is a 68-year-old man with a past medical history of COPD, hypertension, hyperlipidemia, schizophrenia, type 2 diabetes mellitus, previous admission February 2023 for hyponatremia and question pneumonia/pneumonitis presents for evaluation. History obtained utilizing video licensed sales producer via [employer] (licensed sales producer: Saturnino Geiger [id number]). Patient states that he has left-sided chest pain. Patient does not elaborate details regarding chest pain. Patient states name, current season spring and location hospital. He states the headache. He states difficulty breathing for 40 years since he started smoking., nausea, vomiting, diarrhea or urinary symptoms. He states last 2 years. He states no recent fall or trauma. He states pain in his left leg. Related Data Home Medications ?Medication ?Instructions ?Recorded ?Confirmed divalproex 500 mg tablet,extended 1,500 mg PO BEDTIME 07/16/21 11/11/23 release 24 hr vitamin E 1,150 unit/1.25 mL oral 1,000 unit PO DAILY 01/28/23 11/11/23 liquid cholecalciferol (vitamin D3) 50 50 mcg PO DAILY 09/02/23 11/11/23 mcg (2,000 unit) tablet fluphenazine HCl 2.5 mg tablet 2.5 mg PO BEDTIME 09/02/23 11/11/23 gabapentin 300 mg capsule 600 mg PO BID 09/02/23 11/11/23 hydrocortisone 2.5 % topical cream appl topical 10/13/23 11/11/23 nebulizers 10/13/23 11/11/23 olanzapine 10 mg tablet 10 mg PO BEDTIME 10/13/23 11/11/23 olanzapine 20 mg tablet 20 mg PO BEDTIME 10/13/23 11/11/23 propranolol 10 mg tablet 10 mg PO .AM 10/13/23 11/11/23 propranolol 20 mg tablet 10 mg PO .PM 10/13/23 11/11/23 umeclidinium 62.5 mcg/actuation 1 inh inhalation DAILY 10/13/23 11/11/23 blister powder for inhalation (Incruse Ellipta) benztropine 2 mg tablet 2 mg PO BID 11/11/23 11/11/23 fluoxetine 10 mg capsule 10 mg PO DAILY 11/11/23 11/11/23 Previous Rx's ?Medication ?Instructions ?Recorded blood-glucose meter (FreeStyle #1 ea 05/24/21 Lite Meter kit) sennosides 8.6 mg tablet 17.2 mg (2 x 8.6 mg) PO DAILY PRN 12/05/22 constipation #60 tabs fluticasone fur. 100 mcg-umeclid 1 inh inhalation DAILY 30 days #60 02/06/23 62.5 mcg-vilant 25 mcg ea inhalat.powder (Trelegy Ellipta) ipratropium 0.5 mg-albuterol 3 mg 3 ml inhalation BID 30 days #180 mL 02/06/23 (2.5 mg base)/3 mL nebulization soln insulin degludec 100 unit/mL (3 10 unit (0.1 mL) subcut DAILY #15 03/05/23 mL) subcutaneous pen (Tresiba mL FlexTouch U-100 insulin) omeprazole 20 mg capsule,delayed 20 mg PO BID #180 caps 03/21/23 release albuterol sulfate 90 mcg/actuation 2 inh inhalation Q4-6H PRN 03/24/23 breath activated powder inhaler shortness of breath or wheezing #1 ea aspirin 81 mg tablet,delayed 81 mg PO DAILY #90 tabs 06/18/23 release (Adult Low Dose Aspirin) docusate sodium 100 mg capsule 100 mg PO DAILY PRN constipation 06/18/23 #30 caps lancets 30 gauge (Ultra-Care 30 gauge miscellaneous TID #300 ea 07/01/23 Lancets) dulaglutide 0.75 mg/0.5 mL 0.75 mg (0.5 mL) subcut FR@0900 #6 07/05/23 subcutaneous pen injector mL (Trulicity) acetaminophen 650 mg 650 mg PO Q6H PRN pain 30 days 07/19/23 tablet,extended release (Tylenol 8 #120 tabs Hour) alcohol swabs (Alcohol Prep Pads) 1 pad topical DAILY 30 days #200 ea 07/24/23 amlodipine 10 mg tablet 10 mg PO DAILY 90 days #90 tabs 07/26/23 sodium chloride 1,000 mg soluble 1,000 mg PO BID #60 tabs 08/07/23 tablet hydrocortisone 2.5 % topical cream 1 appl PA BID-QID PRN hemorrhoids 09/03/23 with perineal applicator #30 grams blood sugar diagnostic (FreeStyle #100 ea 09/23/23 Lite Strips) atorvastatin 10 mg tablet 10 mg PO BEDTIME #90 tabs 10/22/23 pen needle, diabetic 31 gauge x #100 ea 11/04/2310/17 (BD Ultra-Fine Mini Pen Needle) levofloxacin 250 mg tablet 250 mg PO DAILY 10 days #10 tabs 11/09/23 Allergies Allergy/AdvReac Type Severity Reaction Status Date / Time No Known Allergies Allergy Mild NOT Verified 11/25/23 18:17 APPLICABLE Review of Systems Review of Systems: ROS as per HPI [facility] Past Medical History Medical History Lives in care home Chronic bronchitis Schizophrenia Centrilobular emphysema Essential hypertension Hyperlipidemia LDL goal <70 COPD (chronic obstructive pulmonary disease) Smoker Type 2 diabetes mellitus with diabetic polyneuropathy Multiple pulmonary nodules Family History Family History Father Prostate cancer Diabetes Mother Diabetes Hypertension CVD (cardiovascular disease) Social History Social History Household Members: Other Housing: Other Housing Other:: [facility] Do you presently have visiting nurse or other home services: Yes Unable to assess alcohol history related to: Refusing to respond Alcohol intake: unknown Patient Tobacco Use Status: Current everyday Tobacco user Tobacco use type: Cigarette Cigarette Packs Per Day: 4 Cigarettes Per Day: 80 Years Smoked: 40 Smoked in Last 30 Days: No Use of substances other than those prescribed or required for medical reasons: No Advance Directives: Yes Advance Directives on File: Yes Advance Directives Date on File: 10/25/22 service: No Current occupational status: disabled Cognitive needs: No Hearing needs: No Vision needs: No Physical Exam ED Vital Signs: Vital Signs - 24 hr 11/25/23 18:09 11/25/23 20:46 Temperature 98.3 F 97.9 F Pulse Rate 77 65 Respiratory Rate 18 17 Blood Pressure 139/68 153/72 H Pulse Oximetry 95 95 Oxygen Delivery Method Room Air Room Air BMI result Body Mass Index 25.9 Gen: NAD, AOx3 HEENT: NCAT, EOMI, normal conjunctiva CV: RRR, 2+ DP/PT pulses Pulm: CTAB, no increased work of breathing GI: Soft, NTND, no rebound, guarding or rigidity MSK: No midline vertebral tenderness to palpation, palpable step-offs, crepitus or overlying skin changes posterior torso Neuro: Grossly non focal, symmetric smile, equal strength in bilateral upper and lower extremities Course Course Course Narrative: This is an RME: Additional HPI, ROS, PE not included below will be deferred to primary provider. 68-year-old male past medical history significant for COPD, SIADH, hyponatremia, hypertension, hyperlipidemia, schizophrenia, type 2 diabetes, as well as acute encephalopathy, who presents emergency department with complaints of not feeling well?. Patient is alert and oriented however appears to be confused, unable to report exactly why he is here. He does report that he has chest pain and shortness of breath. Patient is asking if ?the imelda from upstairs can give him a bath?. Patient brought back to the main emergency department for further evaluation. Plan: Labs, further ER evaluation needed Medical Decision Making Medical Decision Making [facility] Narrative: Differential diagnosis includes, but is not limited to electrolyte abnormality, ACS, pneumothorax. EKG shows sinus rhythm at 73 beats per minute, normal axis, normal intervals, no ST elevations/depressions, no STEMI. Chest x-ray as below with no acute radiographic findings and otherwise demonstrating atelectasis. Care transitioned to Dr. Fitzgerald at 1950 with disposition pending remaining work up and reevaluation. Lab Data [facility] Lab Attestation statement: I reviewed the patient's lab results. 11/25/23 19:23 11/25/23 19:23 Labs: Lab Results 11/25/23 Range/Units 19:23 WBC 5.6 (4.8-10.8) X10*3/uL RBC 3.68 L (4.60-5.80) X10*6/uL Hgb 10.4 L (14.0-18.0) g/dl Hct 31.2 L (42.0-52.0) % MCV 84.8 (80.0-98.0) fL MCH 28.3 (27.0-33.0) pg MCHC 33.3 (31.0-36.0) g/dl RDW 14.8 (11.0-16.0) % Plt Count 135 L D (160-400) X10*3/uL MPV 10.3 (9.4-12.4) fL Immature Gran % (Auto) 0.2 (0.0-0.4) % Neut % (Auto) 49.1 (45-73) % Lymph % (Auto) 31.9 (20-40) % [place] % (Auto) 12.8 H (2-11) % Eos % (Auto) 5.3 H (0-4) % Baso % (Auto) 0.7 (0-2) % Lymph # (Auto) 1.8 (1.2-4.9) X10*3/uL [place] # (Auto) 0.7 (0.1-1.2) X10*3/uL Eos # (Auto) 0.3 (0.0-0.4) X10*3/uL Baso # (Auto) 0.0 (0.0-0.2) X10*3/uL Abs Immat Gran (auto) 0.01 (0.00-0.03) X10*3/uL Absolute Neuts (auto) 2.8 (2.0-8.3) x10*3/uL Absolute Nucleated RBC 0.000 (0.0-0.012) X10*3/uL Nucleated RBC % (auto) 0.0 (0.0-0.2) /100WBC Sodium 136 (135-145) mmol/L Potassium 3.9 (3.3-5.1) mmol/L Chloride 104 (96-108) mmol/L Carbon Dioxide 28 (22-29) mmol/L Anion Gap 8 L (12-20) BUN 24 H (9-16) mg/dL Creatinine 1.45 H (0.5-1.4) mg/dL Estim Creat Clear Calc 47.1 Estimated GFR 48 Random Glucose 168 H (60-115) mg/dL Lactic Acid 1.2 (0.5-2.0) mmol/L Calcium 8.7 (8.4-10.2) mg/dL Magnesium 2.1 (1.6-2.6) mg/dL Total Bilirubin 0.3 (0.0-1.0) mg/dL Direct Bilirubin 0.2 (0.0-0.5) mg/dL AST 21 (5-37) U/L ALT 14 (0-40) U/L Alkaline Phosphatase 50 (39-117) U/L Ammonia 40 (13-55) umol/L Troponin I High Sens 3.7 (<3.5-35.0) ng/L Total Protein 6.9 (6.5-8.0) g/dL Albumin 3.3 L (3.5-5.0) g/dL Lipase 18 (8-78) U/L Independent Interpretation I performed an independent interpretation of an: EKG Interpretation: EKG shows sinus rhythm at 73 beats per minute, normal axis, normal intervals, no ST elevations/depressions, no STEMI. Radiology Impression Discussion of test interpretation with radiology: I have reviewed the radiologist's reading. Radiologist Impression: /XR chest 1V IMPRESSION: Bibasilar platelike opacities suggesting subsegmental atelectasis. No pleural effusion or pneumothorax. Dictated By: Paige Hendrickson Discharge Plan Discharge Clinical Impression: Chest pain Prescriptions: No Action (DME) blood-glucose meter [FreeStyle Lite Meter] Kit See Rx Instructions .ROUTE .MEDSUPPLY Qty: 1 0RF Rx Instructions: As directed sennosides 8.6 mg tablet 17.2 mg PO DAILY PRN (Reason: constipation) Qty: 60 2RF insulin degludec [Tresiba FlexTouch U-100] 100 unit/mL (3 mL) insulin pen 10 unit subcut DAILY Qty: 15 1RF omeprazole 20 mg capsule,delayed release(DR/EC) 20 mg PO BID Qty: 180 1RF albuterol sulfate 90 mcg/actuation aerosol powdr breath activated 2 inh inhalation Q4-6H PRN (Reason: shortness of breath or wheezing) Qty: 1 2RF aspirin [Adult Low Dose Aspirin] 81 mg tablet,delayed release (DR/EC) 81 mg PO DAILY Qty: 90 1RF docusate sodium 100 mg capsule 100 mg PO DAILY PRN (Reason: constipation) Qty: 30 6RF lancets [Ultra-Care Lancets] 30 gauge misc 30 gauge miscellaneous TID Qty: 300 1RF Trulicity 0.75 mg/0.5 mL pen injector 0.75 mg subcut FR@0900 Qty: 6 1RF acetaminophen [Tylenol 8 Hour] 650 mg tablet extended release 650 mg PO Q6H PRN (Reason: pain) 30 Days Qty: 120 0RF alcohol swabs [Alcohol Prep Pads] Pads, Medicated 1 pad topical DAILY 30 Days Qty: 200 5RF amlodipine 10 mg tablet 10 mg PO DAILY 90 Days Qty: 90 1RF sodium chloride 1,000 mg tablet,soluble 1,000 mg PO BID Qty: 60 2RF (DME) FreeStyle Lite Strips Strip See Rx Instructions .Route Qty: 100 0RF Rx Instructions: Use to check blood sugar once a day atorvastatin 10 mg tablet 10 mg PO BEDTIME Qty: 90 1RF (DME) pen needle, diabetic [BD Ultra-Fine Mini Pen Needle] 31 gauge x 3/16 needle See Rx Instructions subcut TID Qty: 100 1RF Rx Instructions: As directed to inject insulin daily levofloxacin 250 mg tablet 250 mg PO DAILY 10 Days Qty: 10 0RF propranolol 20 mg tablet 10 mg PO .PM gabapentin 300 mg capsule 600 mg PO BID vitamin E 1,150 unit/1.25 mL liquid 1,000 unit PO DAILY fluphenazine HCl 2.5 mg tablet 2.5 mg PO BEDTIME cholecalciferol (vitamin D3) 50 mcg (2,000 unit) tablet 50 mcg PO DAILY hydrocortisone 2.5 % cream with perineal applicator 1 appl PA BID-QID PRN (Reason: hemorrhoids) Qty: 30 0RF divalproex 500 mg tablet extended release 24 hr 1,500 mg PO BEDTIME ipratropium-albuterol 0.5 mg-3 mg(2.5 mg base)/3 mL solution for nebulization 3 ml inhalation BID 30 Days Qty: 180 11RF Trelegy Ellipta 100-62.5-25 mcg blister with device 1 inh inhalation DAILY 30 Days Qty: 60 11RF olanzapine 10 mg tablet 10 mg PO BEDTIME olanzapine 20 mg tablet 20 mg PO BEDTIME propranolol 10 mg tablet 10 mg PO .AM Incruse Ellipta 62.5 mcg/actuation blister with device 1 inh inhalation DAILY hydrocortisone 2.5 % cream topical (DME) nebulizers Misc See Rx Instructions .Route Rx Instructions: As directed benztropine 2 mg tablet 2 mg PO BID fluoxetine 10 mg capsule 10 mg PO DAILY Print Language: Filipino
--- NOTE | 2023-11-25 18:23 | ECG_ITS ---
Test Reason : CHEST PAIN Blood Pressure : / mmHG Vent. Rate : 073 BPM Atrial Rate : 073 BPM P-R Int : 166 ms QRS Dur : 100 ms QT Int : 382 ms P-R-T Axes : 075 018 048 degrees QTc Int : 420 ms Normal sinus rhythm Normal ECG When compared with ECG of 31-MAY-2023 20:26, No significant change was found Referred By: Karen Adan Electronically Signed By:LYNDSAY GAMING MD
[2023-11-25 19:29] LABS: MANUAL DIFF FLAG NO
[2023-11-25 19:31] LABS: Basophils Percent Auto 0.7 % (0-2); Eosinophils Absolute Auto 0.3 X10*3/uL (0.0-0.4); Eosinophils Percent Auto 5.3 % (0-4); Hematocrit 31.2 % (42.0-52.0); Hemoglobin 10.4 g/dl (14.0-18.0); Imm Gran Abs Auto 0.01 X10*3/uL (0.00-0.03); Imm Gran Pct Auto 0.2 % (0.0-0.4); Lymphocytes Absolute Auto 1.8 X10*3/uL (1.2-4.9); Lymphocytes Percent Auto 31.9 % (20-40); Mean Corpuscular HGB Conc 33.3 g/dl (31.0-36.0); Mean Corpuscular Hemoglobin 28.3 pg (27.0-33.0); Mean Corpuscular Volume 84.8 fL (80.0-98.0); Mean Platelet Volume 10.3 fL (9.4-12.4); Monocytes Absolute Auto 0.7 X10*3/uL (0.1-1.2); Monocytes Percent Auto 12.8 % (2-11); Neutrophils Absolute Auto 2.8 x10*3/uL (2.0-8.3); Neutrophils Percent Auto 49.1 % (45-73); Platelet Count 135 X10*3/uL (160-400); Red Blood Count 3.68 X10*6/uL (4.60-5.80); Red Cell Distribution Width 14.8 % (11.0-16.0); White Blood Count 5.6 X10*3/uL (4.8-10.8)
[2023-11-25 19:46] LABS: Ammonia 40 umol/L (13-55)
[2023-11-25 19:49] LABS: Lactic Acid 1.2 mmol/L (0.5-2.0)
[2023-11-25 19:53] LABS: Alanine Aminotransferase 14 U/L (0-40); Albumin Level 3.3 g/dL (3.5-5.0); Alkaline Phosphatase 50 U/L (39-117); Anion Gap 8 (12-20); Aspartate Amino Transferase 21 U/L (5-37); Bilirubin Direct 0.2 mg/dL (0.0-0.5); Bilirubin Total 0.3 mg/dL (0.0-1.0); Blood Urea Nitrogen 24 mg/dL (9-16); Calcium 8.7 mg/dL (8.4-10.2); Carbon Dioxide 28 mmol/L (22-29); Chloride 104 mmol/L (96-108); Creatinine Clr Calc Pharmacy 47.1; Estimated Glomerular Filt Rate 48; Glucose Random 168 mg/dL (60-115); Lipase 18 U/L (8-78); Magnesium 2.1 mg/dL (1.6-2.6); Potassium 3.9 mmol/L (3.3-5.1); Sodium 136 mmol/L (135-145); Total Protein 6.9 g/dL (6.5-8.0)
[2023-11-25 19:59] LABS: Troponin-I High Sensitivity 3.7 ng/L (<3.5-35.0)
[2023-11-25 20:46] VITALS: BP 153/72; PULSE 65; RESP 17; TEMP 36.6; O2SAT 95
[2023-11-25 23:16] VITALS: BP 138/82; PULSE 80; RESP 16; TEMP 36.7; O2SAT 98
== END 2023-11-25 21:53 | disposition home or self-care (01) ==
PROVIDERS: Physician Assistant Medical; Emergency Provider Emergency Medicine
DX: R07.9 Chest pain, unspecified (principal); E11.9 Type 2 diabetes mellitus without complications; I10 Essential (primary) hypertension; E78.5 Hyperlipidemia, unspecified; F17.210 Nicotine dependence, cigarettes, uncomplicated; Z79.4 Long term (current) use of insulin; Z79.85 Long-term (current) use of injectable non-insulin antidiabetic drugs; Z79.899 Other long term (current) drug therapy; Z79.02 Long term (current) use of antithrombotics/antiplatelets
CPT/HCPCS: 36415; 71045; 80048; 80076; 82140; 83605; 83690; 83735; 84484; 85025; 87040; 93005; 99283; 99285

== ENCOUNTER → 2023-11-25 18:23 | Outpatient (BNV) | payer MEDICARE, MEDICAID, SELFPAY | PROVIDERS: Emergency Provider Emergency Medicine; Visit Provider Internal Medicine Cardiovascular Disease | DX: R07.9 Chest pain, unspecified (principal) | CPT/HCPCS: 93010 ==

== ENCOUNTER 2023-12-01 09:54 | Outpatient (AMB) | payer MEDICARE, MEDICAID, SELFPAY ==
--- NOTE | 2023-12-01 09:55 | HO.NEPHOV ---
Vital Signs 12/01/23 10:12 Height 5 ft 8 in Weight 167 lb BMI 25.4 BP 130/72 Blood Pressure Location Rt brachial Position Sitting Pulse 75 Pulse Source Pulse Oximeter Pulse Oximetry (%) 95 Oxygen Delivery Method Room Air Intake Visit Reasons: CKD/ 3 MO FU/ Confirmed Turning Sander Tender Required: Yes Turning Sander Tender Name: Ipad Turning Sander Tender Accompanied by: QUALITY CONTROL MICROBIOLOGY SUPERVISOR Allergies No Known Allergies Allergy (Mild, Verified 12/01/23 10:13) NOT APPLICABLE HPI Comments Details: 68 yr old man with a h/o Chronic hyponatremia in a setting of COPD , HTN , CAD and midl CKD Baseline creatinine 1.1 to 1.3 mg/dL h/o AVINASH in the past Here for follow up c/o Leg pain when he walks Never had evaluation for PVD Accompanied by family member h/o smoking 2 PPD Underwent work up for hematuria PFS Medical History Lives in senior living Chronic bronchitis Schizophrenia Centrilobular emphysema Essential hypertension Hyperlipidemia LDL goal <70 COPD (chronic obstructive pulmonary disease) Smoker Type 2 diabetes mellitus with diabetic polyneuropathy Multiple pulmonary nodules Family History Father Prostate cancer Diabetes Mother Diabetes Hypertension CVD (cardiovascular disease) Social History Household Members: Other Housing: Other Housing Other:: [facility] Do you presently have visiting nurse or other home services: Yes Unable to assess alcohol history related to: Refusing to respond Alcohol intake: unknown Patient Tobacco Use Status: Current everyday Tobacco user Tobacco use type: Cigarette Cigarette Packs Per Day: 4 Cigarettes Per Day: 80 Years Smoked: 40 Advance Directives Date on File: 10/25/22 service: No Current occupational status: disabled Cognitive needs: No Hearing needs: No Vision needs: No Physical Exam Const General: comfortable Nutritional Appearance: well nourished Orientation/consciousness: patient oriented x3 HEENT Head: No normal to inspection Mouth: moist mucous membranes Neck Neck: Yes supple and Yes no JVD Resp Auscultation: rhonchi and rub present Cardio Jugular venous distension: no JVD Palpation: no palpable S3 and no palpable S4 Heart sounds: no rubs GI Palpation (GI): Soft to palpation and nontender Percussion: No Fluid wave present General: Yes no CVA tenderness Back/Spine/Pelvis Back: no CVA tenderness Skin General skin exam: no rashes or lesions noted Neuro General: patient oriented x3 Extrem General: Yes no pedal edema and No clubbing Results Reviewed Results Reviewed: October 2023: CT/CT urogram IMPRESSION: * No obstructing renal collecting system lesion. No hydronephrosis or nephrolithiasis. Please note this negative study does not obviate the need for direct visualization if clinically warranted. * Benign-appearing bilateral renal cysts. Additional subcentimeter hypoattenuating renal lesions are too small to characterize. * Redemonstration of compressive atelectasis in the right lower lobe. Cr: 1.45 Nephrology Results: Hgb 10.4 g/dl (14.0-18.0) L 11/25/23 WBC 5.6 X10*3/uL (4.8-10.8) 11/25/23 Plt Count 135 X10*3/uL (160-400) L 11/25/23 Sodium 136 mmol/L (135-145) 11/25/23 Potassium 3.9 mmol/L (3.3-5.1) 11/25/23 Chloride 104 mmol/L (96-108) 11/25/23 Carbon Dioxide 28 mmol/L (22-29) 11/25/23 BUN 24 mg/dL (9-16) H 11/25/23 Creatinine 1.45 mg/dL (0.5-1.4) H 11/25/23 Calcium 8.7 mg/dL (8.4-10.2) 11/25/23 Assessment & Plan Assessment & Plan (1) Microhematuria: Code(s): R31.29 - Other microscopic hematuria Category: Medical Plan: Microhematuria without significant proteinuria complete urology work up Serology re-ordered (2) CKD (chronic kidney disease) stage 3, GFR 30-59 ml/min: Code(s): N18.30 - Chronic kidney disease, stage 3 unspecified Category: Medical Plan: Renal functions was close to baseline Recent bump to 1.45 No proteinuria Continue to avoid nephrotoxins including NSAIDS Keep I > ) Work up as outlined (3) Chronic hyponatremia: Code(s): E87.1 - Hypo-osmolality and hyponatremia Category: Medical Plan: Most likely due to NON Osmotic ADH release in a setting of COPD Goal pNa > 130 Restrict PO water intake Repeat labs ordered (4) Leg pain: Code(s): M79.606 - Pain in leg, unspecified Category: Medical Plan: r/o PVD Referred to Dr. Camarillo (5) Essential hypertension: Code(s): I10 - Essential (primary) hypertension Category: Medical Plan: BP acceptable No changes to medications Goal BP < 130/80 Plan . Orders: Orders Neutrophil Cytoplasma Ab Today N18.30 - Chronic kidney disease, stage 3 unspecified, R31.29 - Other microscopic hematuria Myeloperoxidase Antibody Today N18.30 - Chronic kidney disease, stage 3 unspecified, R31.29 - Other microscopic hematuria Proteinase 3 PR3 Antibodies Today N18.30 - Chronic kidney disease, stage 3 unspecified, R31.29 - Other microscopic hematuria Protein Electrophoresis, Serum Today N18.30 - Chronic kidney disease, stage 3 unspecified, R31.29 - Other microscopic hematuria Basic Metabolic Panel Today N18.30 - Chronic kidney disease, stage 3 unspecified, R31.29 - Other microscopic hematuria CHEL Reflex Titer and Pattern Today N18.30 - Chronic kidney disease, stage 3 unspecified, R31.29 - Other microscopic hematuria Anti Glomerular Basement Memb Today N18.30 - Chronic kidney disease, stage 3 unspecified, R31.29 - Other microscopic hematuria Complement C3 Today N18.30 - Chronic kidney disease, stage 3 unspecified, R31.29 - Other microscopic hematuria Complement C4 Today N18.30 - Chronic kidney disease, stage 3 unspecified, R31.29 - Other microscopic hematuria Referrals Vascular Surgery Referral M79.606 - Pain in leg, unspecified Coding Level of Care Code Est Pt Level 4 (42403) Diagnoses Microhematuria R31.29 CKD (chronic kidney disease) stage 3, GFR 30-59 ml/min N18.30 Chronic hyponatremia E87.1 Leg pain M79.606 Essential hypertension I10
[2023-12-01 10:12] VITALS: BP 130/72; PULSE 75; O2SAT 95; BMI 25.4
== END 2023-12-01 10:19 | disposition home or self-care (01) ==
PROVIDERS: PCP Nurse Practitioner Family; Visit Provider Internal Medicine Hypertension Specialist
DX: R31.29 Other microscopic hematuria (principal); N18.30 Chronic kidney disease, stage 3 unspecified; E87.1 Hypo-osmolality and hyponatremia; M79.606 Pain in leg, unspecified; I10 Essential (primary) hypertension
CPT/HCPCS: 99214

== ENCOUNTER 2023-12-01 10:41 | Outpatient (REF) | payer MEDICARE, MEDICAID, SELFPAY ==
[2023-12-01 13:50] LABS: Anion Gap 13 (12-20); Blood Urea Nitrogen 20 mg/dL (9-16); Carbon Dioxide 23 mmol/L (22-29); Chloride 104 mmol/L (96-108); Estimated Glomerular Filt Rate > 60; Glucose Random 134 mg/dL (60-115); Potassium 4.1 mmol/L (3.3-5.1); Sodium 136 mmol/L (135-145)
[2023-12-02 14:23] LABS: Anti Glomerular Basement Memb <1.0 AI; Myeloperoxidase Antibody <1.0 AI; Proteinase 3 PR3 Antibodies <1.0 AI
[2023-12-03 11:44] LABS: Prot Elec - Albumin 3.5 g/dL (3.8-4.8); Prot Elec - Alpha1 0.2 g/dL (0.2-0.3); Prot Elec - Alpha2 0.8 g/dL (0.5-0.9); Prot Elec - Beta 1 0.5 g/dL (0.4-0.6); Prot Elec - Beta 2 0.4 g/dL (0.2-0.5); Prot Elec - Gamma 1.9 g/dL (0.8-1.7); Prot Elec - Total Protein 7.3 g/dL (6.1-8.1)
[2023-12-03 20:39] LABS: Anti Nuclear Antibody Screen NEGATIVE (NEGATIVE)
[2023-12-04 08:37] LABS: Neutrophil Cyto Ab Screen NEGATIVE (NEGATIVE)
== END 2023-12-01 10:42 | disposition home or self-care (01) ==
LOC: HO.10HDL 10:41
PROVIDERS: Visit Provider Internal Medicine Hypertension Specialist
DX: I12.9 Hypertensive chronic kidney disease with stage 1 through stage 4 chronic kidney disease, or unspecified chronic kidney disease (principal); N18.30 Chronic kidney disease, stage 3 unspecified; R31.29 Other microscopic hematuria; E87.1 Hypo-osmolality and hyponatremia
CPT/HCPCS: 36415; 80048; 83520; 84165; 86021; 86036; 86038; 86160; 99212

== ENCOUNTER 2023-12-11 09:30 | Outpatient (AMB) | payer MEDICARE, MEDICAID, SELFPAY ==
[2023-12-11 09:45] VITALS: PULSE 73; O2SAT 96; BMI 30.1
--- NOTE | 2023-12-11 09:45 | A.OFFVIS_ITS ---
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 Patient is having worsening chest congestion. Moderate severity. Significant chest tightness and wheezing. He is also participating in the lung cancer screening program. His last CT scan was back in November 2022 where he was found to have multiple pulmonary nodules. Some or endobronchial. He did follow-up with thoracic surgery afterwards. At this point the patient will have additional CT scans. In the meantime he does have significant rhonchi and wheezing on examination. He understands that he needs to quit smoking. He is agreeable to cutting down at this time. In the office we did give him a nebulized treatment in the did help him. Will going to provide him with a nebulizer. He also needs an Acapella valve per chest PT. Will continue to monitor his pulmonary nodules and is endobronchial densities. Likely mucus. If he continues to have persistent endobronchial disease then a bronchoscopy will be warranted. 10/13/2023 the patient is here for pulmonary follow-up visit. The patient overall is doing a little better. He is tolerating the Trelegy well. He also tolerating the azithromycin 3 times a week. He is still bringing up phlegm. Still feeling congested. Moderate severity. He is still smoking unfortunately. We did review his CT scan of the chest. It appears that he has a right lower lobe airspace disease was also endobronchial disease and potential obstruction. Need to rule out endobronchial mass. This can result in a postobstructive pneumonia. Explained the bronchoscopy to the patient he is agreeable to undergoing the bronchoscopy at this time. Will continue the current therapy and will plan for the bronchoscopy. Further recommendation based on forthcoming data. 04/23/2024 the patient is here for a pulmonary follow-up visit. He is status post bronchoscopy. He did have endobronchial lesion secondary to likely a foreign body which was consistent with a vegetable. The patient subsequently was treated also for a postobstructive pneumonia. Once the foreign body was removed the patient has been doing better from a respiratory status. He continues on the Trelegy with good effect. We did review his last chest x-ray demonstrating some slight elevations of the left hemidiaphragm. Will request repeat x-ray when he returns in 6 months. Otherwise patient is doing well after the removal of the foreign body and now he is eating carefully and he has been monitor closely for any recurrent aspiration events. [facility] Medical History Lives in residential Chronic bronchitis Schizophrenia Centrilobular emphysema Essential hypertension Hyperlipidemia LDL goal <70 COPD (chronic obstructive pulmonary disease) Smoker Type 2 diabetes mellitus with diabetic polyneuropathy Multiple pulmonary nodules Family History Father Prostate cancer Diabetes Mother Diabetes Hypertension CVD (cardiovascular disease) Social History Household Members: Other Housing: Other Housing Other:: snf Do you presently have visiting nurse or other home services: Yes Unable to assess alcohol history related to: Refusing to respond Alcohol intake: unknown Patient Tobacco Use Status: Current everyday Tobacco user Tobacco use type: Cigarette Cigarette Packs Per Day: 4 Cigarettes Per Day: 80 Years Smoked: 40 Advance Directives Date on File: 10/25/22 service: No Current occupational status: disabled Cognitive needs: No Hearing needs: No Vision needs: No Review of Systems Const Denies chills and Denies fever(s) Eyes Denies blurry vision ENT Denies vertigo, Denies dizziness and Denies sore throat Card Denies chest pain at rest, Denies chest pain with activity, Denies diaphoresis, Denies dyspnea and Reports dyspnea on exertion Resp Denies chest congestion, Reports cough, Denies dyspnea, Reports dyspnea on exertion and Denies wheezing GI Denies abdominal pain, Denies melena, Denies hematochezia, Denies constipation, Denies diarrhea and Denies loose stools Denies hematuria Musc Denies numbness and Denies tingling Skin/Breast Denies lesions Neuro Denies vertigo, Denies dizziness, Denies numbness and Denies tingling Psych Denies anxiety, Denies depression, Denies homicidal ideation, Denies suicidal ideation and Denies other (substance abuse) Aller/Immun Denies wheezing Physical Exam Vital Signs: Last Vital Signs Pulse 73 12/11/23 09:45 Pulse Ox 96 12/11/23 09:45 Oxygen Delivery Method Room Air 12/11/23 09:45 BMI result Body Mass Index 30.1 Const General: comfortable HEENT Head: Yes normocephalic Neck Neck: Yes supple Chest Chest palpation & inspection: normal inspection of the chest Resp Effort & Inspection: normal respiratory effort Auscultation: no rhonchi and diminished lung sounds Cardio Rate: regular rate Rhythm: regular rhythm Heart sounds: S1 normal heart sound present and S2 normal heart sound present GI Palpation (GI): Soft to palpation Skin General skin exam: no rashes or lesions noted Extrem General: Yes no clubbing, cyanosis or edema Assessment & Plan Assessment & Plan (1) COPD (chronic obstructive pulmonary disease): Code(s): J44.9 - Chronic obstructive pulmonary disease, unspecified Category: Medical Qualifiers: COPD type: chronic bronchitis Chronic bronchitis type: mucopurulent Qualified Code(s): J41.1 - Mucopurulent chronic bronchitis (2) Multiple pulmonary nodules: Code(s): R91.8 - Other nonspecific abnormal finding of lung field Category: Medical (3) Smoker: Code(s): F17.200 - Nicotine dependence, unspecified, uncomplicated Category: Social Hx (4) Pneumonia: Code(s): J18.9 - Pneumonia, unspecified organism Category: Medical Qualifiers: Laterality: right Lung location: lower lobe of lung Pneumonia type: due to unspecified organism Qualified Code(s): J18.9 - Pneumonia, unspecified organism Plan continue Trelegy daily CHASE as needed nebulizer therapy as needed CPT with acapella valve ok to stop Azithromycin MWF smoking cessation F/U 6 months with CXR Coding Level of Care Code Est Pt Level 4 (18987) Diagnoses Mucopurulent chronic bronchitis J41.1 COPD type: chronic bronchitis Chronic bronchitis type: mucopurulent Multiple pulmonary nodules R91.8 Smoker F17.200 Pneumonia of right lower lobe due to infectious organism J18.9 Laterality: right Lung location: lower lobe of lung Pneumonia type: due to unspecified organism Time Spent (min) 16
== END 2023-12-11 10:13 | disposition home or self-care (01) ==
PROVIDERS: PCP Nurse Practitioner Family; Visit Provider Hospitalist
DX: J41.1 Mucopurulent chronic bronchitis (principal); R91.8 Other nonspecific abnormal finding of lung field; F17.200 Nicotine dependence, unspecified, uncomplicated; J18.9 Pneumonia, unspecified organism
CPT/HCPCS: 99214

== ENCOUNTER → 2023-12-11 09:30 | Outpatient (BNVA) | payer MEDICARE, MEDICAID, SELFPAY | PROVIDERS: PCP Nurse Practitioner Family; Visit Provider Hospitalist | DX: J41.1 Mucopurulent chronic bronchitis (principal); J18.9 Pneumonia, unspecified organism; R91.8 Other nonspecific abnormal finding of lung field; F17.210 Nicotine dependence, cigarettes, uncomplicated | CPT/HCPCS: 99212 ==

== ENCOUNTER 2023-12-22 10:23 | Outpatient (AMB) | payer MEDICARE, MEDICAID, SELFPAY ==
--- NOTE | 2023-12-22 10:53 | MHC.OFFVIS ---
Intake Visit Reasons: cysto Intake Note: Patient is Present for Cystoscopy Urology Med: none Antibiotic Allergy: none Blood Thinner: aspirin URO- G Disposable Cystoscope lot: [id number] exp: 09/04/2026 [employer]st [employer] Name: Santiago Juarez Information Interpreted: non-clinical & clinical Allergies No Known Allergies Allergy (Mild, Verified 12/22/23 10:57) NOT APPLICABLE Medication List - Last Reconciled 12/22/23 by Nicole Schaefer MD acetaminophen ER (Tylenol 8 Hour) 650 mg PO Q6H PRN 30 days albuterol sulfate 90 mcg/actuation 2 inhalations inhalation Q4-6H PRN alcohol swabs (Alcohol Prep Pads) 1 pad topical DAILY 30 days amlodipine 10 mg PO DAILY 90 days aspirin (Adult Low Dose Aspirin) 81 mg PO DAILY atorvastatin 10 mg PO BEDTIME benztropine 2 mg PO BID blood sugar diagnostic (FreeStyle Lite Strips) Use to check blood sugar once a day blood-glucose meter (FreeStyle Lite Meter kit) As directed cholecalciferol (vitamin D3) 50 mcg PO DAILY divalproex ER 1,500 mg PO BEDTIME docusate sodium 100 mg PO DAILY PRN dulaglutide (Trulicity) 0.75 mg (0.5 mL) subcut FR@0900 fluoxetine 10 mg PO DAILY fluphenazine HCl 2.5 mg PO BEDTIME zywmhogjewe-sxrjwusoq-rncrkjpw 100-62.5-25 mcg (Trelegy Ellipta) 1 inh inhalation DAILY 30 days gabapentin 300 mg PO QAM hydrocortisone 2.5% 1 appl LA BID-QID PRN hydrocortisone 2.5% appl topical insulin degludec (Tresiba FlexTouch U-100 insulin) 10 units (0.1 mL) subcut DAILY ipratropium-albuterol 0.5 mg-3 mg(2.5 mg base)/3 mL 3 mL inhalation BID 30 days lancets (Ultra-Care Lancets) 30 gauge miscellaneous TID nebulizers As directed olanzapine 20 mg PO BEDTIME olanzapine 10 mg PO QAM omeprazole 20 mg PO BID pen needle, diabetic (BD Ultra-Fine Mini Pen Needle) As directed to inject insulin daily propranolol 10 mg PO .AM propranolol 10 mg PO .PM sennosides 17.2 mg (2 x 8.6 mg) PO DAILY PRN sodium chloride 1,000 mg PO BID umeclidinium 62.5 mcg/actuation (Incruse Ellipta) 1 inh inhalation DAILY vitamin E 1,000 units PO DAILY HPI Comments Details: 12/22/2023--Armand is here for office cystoscopy. I reviewed CT urogram-10/15/2023 within normal limits. Comorbidity-nicotine dependence. Urine cytology 11/11/2023--negative for malignant cells. Cystoscopy today-cystoscopy findings mild to moderate trabeculations, no suspicious bladder lesions. Follow-up with nurse practitioner in 6 months check urinalysis, PSA screening. Review of chart: 11/11/2023--Armand is a very pleasant 68-year-old Maltese-speaking male patient of Dr. Cruz. He has a past medical history of chronic bronchitis, schizophrenia, hypertension, COPD, type 2 diabetes, multiple pulmonary nodules, and nicotine dependence. He presents to the office today as a new patient for microscopic hematuria in the setting of nicotine dependence. In discussion with the patient and his vice president of academic affairs today as the patient lives in a retirement he reports smoking since the age of 12 in smokes approximately 2 packs of cigarettes per day. Review of patient's chart it appears CT urogram was ordered and performed. These results were reviewed with the patient and his vice president of academic affairs today. No obvious mass lesion or filling defect is seen in the collecting system or ureters. Benign-appearing bilateral renal cysts. The bladder is unremarkable. Patient and vice president of academic affairs deny any other urological issues or concerns. Discussed reasons for blood in the urine may include but are not limited to kidney stones, cancer in the urinary tract, BPH, kidney stone disease or inflammatory conditions of the urinary tract. Discussed workup to include cystoscopy evaluation. In office urinalysis results with microscopic hematuria will send for urine cytology. He otherwise offers no other issues or concerns at this time. [facility] Medical History Lives in retirement Chronic bronchitis Schizophrenia Centrilobular emphysema Essential hypertension Hyperlipidemia LDL goal <70 COPD (chronic obstructive pulmonary disease) Smoker Type 2 diabetes mellitus with diabetic polyneuropathy Multiple pulmonary nodules Family History Father Prostate cancer Diabetes Mother Diabetes Hypertension CVD (cardiovascular disease) Social History Household Members: Other Housing: Other Housing Other:: longterm Do you presently have visiting nurse or other home services: Yes Unable to assess alcohol history related to: Refusing to respond Alcohol intake: unknown Patient Tobacco Use Status: Current everyday Tobacco user Tobacco use type: Cigarette Cigarette Packs Per Day: 4 Cigarettes Per Day: 80 Years Smoked: 40 Advance Directives Date on File: 10/25/22 service: No Current occupational status: disabled Cognitive needs: No Hearing needs: No Vision needs: No Review of Systems Const All systems reviewed & are unremarkable except as noted in HPI and below Reports no additional complaints Eyes Reports no additional complaints ENT Reports no additional complaints Card Reports no additional complaints Resp Reports no additional complaints GI Reports no additional complaints Reports as per HPI Musc Reports no additional complaints Skin/Breast Reports system reviewed and no additional complaints, except as documented Neuro Reports no additional complaints Psych Reports no additional complaints Endo Reports no additional complaints Jona/Lymph Reports no additional complaints Aller/Immun Reports no additional complaints Office Procedures Cystoscopy Consent Discussed risk and benefit or proposed procedure with the patient. Information consent for procedure given to the patient. Discussed technical aspects, risks, benefits and alternatives in full. Addressed all of the patient's questions and concerns regarding the procedure. The patient demonstrated knowledge and understanding. They wish to proceed with this procedure. Preparation The patient was prepped in the usual manner. A vehicle upholsterer was present and in the room. Genitalia was prepped with betadine solution in a sterile manner. Lidocaine Jelly 2% was placed into the urethra and 16Fr flexible Olympus cystoscope was inserted into the meatus after adequate lubrication. Procedure Time out per protocol performed. Bladder Inspection Bladder Inspection: The bladder was inspected in its entirety with utilization retroflexion displaying: Tumor(s): None visualized Trabeculation: Present-mild to moderate Mucosal Erthema: NA Orifices: normal shape and position Urethra: normal Cystoscopy findings: prostatic urethra bilobar enlargement, bulbous urethra WNL, no suspicious bladder lesions visualized [id number] DISPOSABLE SCOPE URO-G FLEXIBLE SCOPE Procedure code (CPT) selection complete Office Meds lidocaine HCl 2 % mucosal jelly in applicator Performing Provider: Nicole Schaefer MD [facility] Administered by: Que Hills LPN on 12/22/23 11:06 Dose Route Admin Location Dispensed Lot Number Expiration Date NDC Radiology Scheduler 10 mL intra-urethral 20 mL naproxen 500 mg tablet Performing Provider: Nicole Schaefer MD Performing Location[facility] Administered by: Que Hills LPN on 12/22/23 11:06 Dose Route Admin Location Dispensed Lot Number Expiration Date NDC Radiology Scheduler 500 mg PO 1 tab ciprofloxacin HCl 500 mg tablet Performing Provider: Nicole Schaefer MD Performing Location: [facility] Administered by: Que Hills LPN on 12/22/23 11:06 Dose Route Admin Location Dispensed Lot Number Expiration Date NDC Radiology Scheduler 500 mg PO 1 tab Results AMB Urinalysis, Automated UA Leukoctes 0 Nixon/uL Last Edit by ALCIRA Dimas on 12/22/23 11:06 UA Nitrite Negative Last Edit by ALCIRA Dimas on 12/22/23 11:06 UA Urobilinogen 0.2 mg/dL Last Edit by Jewell Gonzales She on 12/22/23 11:06 UA Protein 0 mg/dL Last Edit by ALCIRA Dimas on 12/22/23 11:06 UA pH 6.5 Last Edit by ALCIRA Dimas on 12/22/23 11:06 UA Blood 25 Aashish/uL Last Edit by ALCIRA Dimas on 12/22/23 11:06 UA Specific [place] 1.010 Last Edit by ALCIRA Dimas on 12/22/23 11:06 UA Ketone Negative Last Edit by ALCIRA Dimas on 12/22/23 11:06 UA Bilirubin 0 mg/dL Last Edit by ALCIRA Dimas on 12/22/23 11:06 UA Glucose 0 mg/dL Last Edit by ALCIRA Dimas on 12/22/23 11:06 Results Reviewed Results Reviewed: Laboratory Last Values Urine pH (Auto) 6.5 12/22/23 11:01 Specific [place] (Auto) 1.010 12/22/23 11:01 Urine Protein (Auto) 0 mg/dL 12/22/23 11:01 Glucose (UA)(Auto) 0 mg/dL 12/22/23 11:01 Urine Ketones (Auto) Negative 12/22/23 11:01 Urine Blood (Auto) 25 Aashish/uL 12/22/23 11:01 Urine Nitrite (Auto) Negative 12/22/23 11:01 Urine Bilirubin (Auto) 0 mg/dL 12/22/23 11:01 Urine Urobilinogen (Auto) 0.2 mg/dL 12/22/23 11:01 Leukocyte Esterase (Auto) 0 Nixon/uL 12/22/23 11:01 Collected: 11/11/23 Location: [facility] Received: 11/12/23 Diagnosis Urine: Negative for high-grade urothelial carcinoma. COMMENT: Examination of a monolayer preparation slide shows many benign superficial squamous cells with bacteria, scattered benign urothelial cells, red blood cells, and inflammatory cells. Clinical History Microscopic hematuria Material Received Urine Gross Description Received are 30 cc of clear yellow fluid from which a ThinPrep slide is prepared. Date of Service: 10/15/23 Procedure(s): CT urogram FINDINGS: LUNG BASES: Redemonstration of compressive atelectasis in the right lower lobe. ABDOMINAL AND PELVIC WALL: Bilateral fat-containing inguinal hernias. LIVER AND BILIARY TREE: Unremarkable. GALLBLADDER: Unremarkable. PANCREAS: Unremarkable. SPLEEN: Unremarkable. ADRENAL GLANDS: Unremarkable. KIDNEYS AND URETERS: The kidneys are normal in size, shape, and attenuation. No hydronephrosis, hydroureter, or calculi seen. No perinephric stranding. No obvious mass lesion or filling defect is seen in the collecting systems or ureters. Benign-appearing bilateral renal cysts. Additional subcentimeter hypoattenuating renal lesions are too small to characterize. GASTROINTESTINAL TRACT: Unremarkable. Appendix is within normal limits. VASCULAR: Aortic atherosclerotic calcifications, no aneurysmal dilation. LYMPH NODES/PERITONEUM: No lymphadenopathy. FREE FLUID: None. BLADDER: Unremarkable. PELVIC VISCERA: Prostate is mildly enlarged. OSSEOUS STRUCTURES: Unremarkable. IMPRESSION: * No obstructing renal collecting system lesion. No hydronephrosis or nephrolithiasis. Please note this negative study does not obviate the need for direct visualization if clinically warranted. * Benign-appearing bilateral renal cysts. Additional subcentimeter hypoattenuating renal lesions are too small to characterize. * Redemonstration of compressive atelectasis in the right lower lobe. Assessment & Plan Assessment & Plan (1) Microhematuria: Code(s): R31.29 - Other microscopic hematuria Category: Medical (2) Smoker: Code(s): F17.200 - Nicotine dependence, unspecified, uncomplicated Category: Social Hx (3) Screening PSA (prostate specific antigen): Code(s): Z12.5 - Encounter for screening for malignant neoplasm of prostate Category: Medical Plan Follow-up with NIKHIL Reagan in 6 months. PSA prior Orders: Orders AMB Urinalysis Automated Today Z13.9 - Encounter for screening, unspecified PSA,Total (Free>4and<10) 5 Months Z12.5 - Encounter for screening for malignant neoplasm of prostate AMB Cystoscopy Today R31.29 - Other microscopic hematuria Patient Instructions: It is a privilege to be allowed the opportunity to participate in the urologic care of your patient. If you have any questions or concerns regarding treatment for the above conditions please do not hesitate to contact me. The office telephone contact is [phone]. This note is constructed in part using voice recognition software. While every effort has been made to ensure accuracy bag maker errors may have been included. Yours sincerely, Nicole Schaefer MD Coding Level of Care Code Procedure Only Diagnoses Microhematuria R31.29 Smoker F17.200 Screening PSA (prostate specific antigen) Z12.5 CPT Codes Cystoscopy - CPT: 05013-[id number] ([id number])
== END 2023-12-22 11:49 | disposition home or self-care (01) ==
PROVIDERS: PCP Nurse Practitioner Family; Visit Provider Urology
DX: R31.29 Other microscopic hematuria (principal); F17.200 Nicotine dependence, unspecified, uncomplicated; Z12.5 Encounter for screening for malignant neoplasm of prostate; Z13.9 Encounter for screening, unspecified
CPT/HCPCS: 52000

== ENCOUNTER → 2023-12-22 10:23 | Outpatient (BNVA) | payer MEDICARE, MEDICAID, SELFPAY | PROVIDERS: PCP Nurse Practitioner Family; Visit Provider Urology | DX: R31.29 Other microscopic hematuria (principal); F17.210 Nicotine dependence, cigarettes, uncomplicated | CPT/HCPCS: 52000; 81003 ==

== ENCOUNTER 2023-12-25 09:21 | Outpatient (AMB) | payer MEDICARE, MEDICAID, SELFPAY ==
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
[2023-12-25 09:30] VITALS: BP 118/66; PULSE 70; RESP 17; O2SAT 97; BMI 25.6
== END 2023-12-25 10:19 | disposition home or self-care (01) ==
PROVIDERS: PCP Nurse Practitioner Family; Visit Provider Psychiatry & Neurology Neurology
DX: G20.C Parkinsonism, unspecified (principal); G24.01 Drug induced subacute dyskinesia
CPT/HCPCS: 99204

== ENCOUNTER → 2023-12-25 09:21 | Outpatient (BNVA) | payer MEDICARE, MEDICAID, SELFPAY | PROVIDERS: PCP Nurse Practitioner Family; Visit Provider Psychiatry & Neurology Neurology ==

== ENCOUNTER 2023-12-25 10:22 | Outpatient (REF) | payer MEDICARE, MEDICAID, SELFPAY ==
[2023-12-25 18:30] LABS: Vitamin B12 1071 pg/mL (200-900)
[2023-12-29 14:18] LABS: Vitamin D 25-OH, D2 <4 ng/mL; Vitamin D 25-OH, D3 43 ng/mL; Vitamin D 25-OH, Total 43 ng/mL (30-100)
== END 2023-12-25 10:23 | disposition home or self-care (01) ==
LOC: HO.HKASLDS 10:22
PROVIDERS: Visit Provider Psychiatry & Neurology Neurology
DX: G20.C Parkinsonism, unspecified (principal); G24.01 Drug induced subacute dyskinesia
CPT/HCPCS: 36415; 82306; 82607; 82746; 99202

== ENCOUNTER 2023-12-30 10:19 | Outpatient (AMB) | payer MEDICARE, MEDICAID, SELFPAY ==
--- NOTE | 2023-12-30 10:51 | A.OFFPC_ITS ---
Vital Signs 12/30/23 10:56 Height 5 ft 7 in BMI Reason not done Patient refused/unable BP 122/76 Blood Pressure Location Rt brachial Position Sitting Pulse 72 Pulse Source Pulse Oximeter Pulse Oximetry (%) 98 Intake Visit Reasons: 4 month follow up Intake Note: pt is here for 4 month follow up with A1C Allergies No Known Allergies Allergy (Mild, Verified 12/30/23 10:57) NOT APPLICABLE Tobacco use date assessed: 12/30/23 Fall risk assessment: No Falls in past year Last assessed Fall Risk: 12/30/23 Dental Screening Dental Screen Date: 09/02/23 HPI 4 month follow up HPI Details Pt is a diabetic, on a statin. A1C in office today is 6.4. Due for microalbumin, this has been ordered. Denies polyuria, polydipsia, and neuropathy. Pt denies any signs and symptoms of hypoglycemia and does know how to correct it. Pt sees a information security. Pt sees neurology due to increased abnormal gait. He is with a staff member today. [facility] Medical History Tardive dyskinesia Parkinsonism Lives in senior living Chronic bronchitis Schizophrenia Centrilobular emphysema Essential hypertension Hyperlipidemia LDL goal <70 COPD (chronic obstructive pulmonary disease) Smoker Type 2 diabetes mellitus with diabetic polyneuropathy Multiple pulmonary nodules Surgical History No pertinent past surgical history Family History Father Prostate cancer Diabetes Mother Diabetes Hypertension CVD (cardiovascular disease) Social History Household Members: Other Housing: Other Housing Other:: long-term Do you presently have visiting nurse or other home services: Yes Unable to assess alcohol history related to: Refusing to respond Alcohol intake: unknown Patient Tobacco Use Status: Current everyday Tobacco user Tobacco use type: Cigarette Cigarette Packs Per Day: 4 Cigarettes Per Day: 80 Years Smoked: 40 Advance Directives Date on File: 10/25/22 service: No Current occupational status: disabled Cognitive needs: No Hearing needs: No Vision needs: No Questionnaire PHQ-9 Over the last 2 weeks, how often have you been bothered by any of the following problems? 1. Little interest or pleasure in doing things: not at all 2. Feeling down, depressed, or hopeless: not at all 3. Trouble falling or staying asleep, or sleeping too much: not at all 4. Feeling tired or having little energy: not at all 5. Poor appetite or overeating: not at all 6. Feeling bad about yourself - or that you are a failure or have let yourself or your family down: not at all 7. Trouble concentrating on things, such as reading the newspaper or watching television: not at all 8. Moving or speaking so slowly that other people could have noticed. Or the opposite - being so fidgety or restless that you have been moving around a lot more than usual: not at all 9. Thoughts that you would be better off or of hurting yourself in some way: not at all Total score: 0 Depression Screening Interpretation: Negative Depression Screening Done: Yes 08758 - PHQ-9 Billing: Yes Source: Developed by Drs. Christos Barnes, Viridiana Nguyen, Darrin Becerra and colleagues, with an educational jaspreet from [employer]. Thrive Questionnaire Date Thrive assessed: 12/30/23 I am a: Patient What is your living situation today?: I have a steady place to live Within the past 12 months, did the food you bought not last and you didn't have the money to get more?: Never true Within the past 12 months, did you worry whether your food would run out before you got money to buy more?: Never true Do you have trouble paying for medicines?: No Do you have trouble getting transportation to medical appointments?: No Do you have trouble paying your heating and electricity bill?: No Do you have trouble taking care of your child, family member or friend?: No Do you have trouble with day-to-day activities such as bathing, preparing meals, shopping, managing finances, etc.?: No Are you currently unemployed and looking for a job?: No Are you interested in more education?: No Please select the resources that you would like help with: None Currently or been in a relationship where the following occur: no concerns reported THRIVE Score: 0 AUDIT C Alcohol Use Questionnaire (AUDIT-C) 1. How often do you have a drink containing alcohol?: Never Total Score: 0 Score Reviewed/Action Taken: Yes JESSA-7 AMB Questionnaire JESSA-7 Date JESSA - 7 assessed: 12/30/23 Feeling nervous, anxious, or on edge: 0 = Not at all Not being able to stop or control worryin = Not at all Worrying too much about different things: 0 = Not at all Trouble relaxin = Not at all Being so restless that it is hard to sit still: 0 = Not at all Becoming easily annoyed or irritable: 0 = Not at all Feeling afraid as if something awful might happen: 0 = Not at all Total JESSA-7 score (0-4 normal; 5-9 mild; 10-14 moderate; 15-21 severe): 0 Source: Developed by Drs. Christos Barnes, Viridiana Nguyen, Darrin Becerra and colleagues, with an educational jaspreet from [employer]. JESSA-7 Assessment Billing JESSA-7 Assessment Tool: JESSA-7 Assessment 80726 Review of Systems Const Reports as per HPI Physical exam (Primary Care) Vital Signs: Last Vital Signs Pulse 72 12/30/23 10:56 BP 122/76 12/30/23 10:56 Pulse Ox 98 12/30/23 10:56 Tobacco/Smoking Status: Tobacco use Status Tobacco use date assessed 12/30/23 12/30/23 11:00 Patient Tobacco Use Status Current everyday Tobacco 12/30/23 10:51 Tobacco use type Cigarette 12/30/23 10:51 PHQ-9: PHQ-9 Score PHQ-9: Total score 0 12/30/23 11:00 Depression Screening Interpretation: Negative Thrive Assessment: Date of Thrive Assessment Date Thrive assessed 12/30/23 12/30/23 11:00 Currently or been in a relationship where the following occur: no concerns reported Const General: cooperative Orientation/consciousness: patient oriented x3 Limitations: wheelchair Resp Other: lungs diminished and coarse Effort & Inspection: normal respiratory effort Cardio Rate: regular rate Rhythm: regular rhythm Heart sounds: S1 normal heart sound present and S2 normal heart sound present Neuro General: patient oriented x3 Extrem Other: bilat feet: + sensation with use of monofilament, feet intact, onychomycosis noted bilat, bunions noted Psych Appearance: grossly normal Mental Status: mental status grossly normal Speech and movement: Normal speech and movement present Affect: normal affect Attitude: cooperative Thought process: Normal thought process present Thought content: Normal thought content present Insight: Good insight present (Psych) Judgement: Good judgement present (Psych) Results AMB Hemoglobin A1c AMB Hemoglobin A1c 6.4 % Last Edit by Hussein Kuo CMA on 12/30/23 11: 15 Assessment and Plan Assessment & Plan (1) Type 2 diabetes mellitus with diabetic polyneuropathy: Comment: IDDM2 Code(s): E11.42 - Type 2 diabetes mellitus with diabetic polyneuropathy Qualifiers: 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 Scribed for [employer] [employer] by Yadira Yang medical reviewer, on 12/30/2023 at 11:05 EST. Orders: Orders Complete Blood Count Auto Diff Today E11.42 - Type 2 diabetes mellitus with diabetic polyneuropathy, Z79.4 - [facility] (current) use of insulin Comprehensive [place]. Panel Fast Today E11.42 - Type 2 diabetes mellitus with diabetic polyneuropathy, Z79.4 - [facility] (current) use of insulin TSH reflex Free T4 Today E11.42 - Type 2 diabetes mellitus with diabetic polyneuropathy, Z79.4 - [facility] (current) use of insulin UA CC w/rflx Micro + Cult Today E11.42 - Type 2 diabetes mellitus with diabetic polyneuropathy, Z79.4 - terminal make up operator (current) use of insulin Lipid Panel Today E11.42 - Type 2 diabetes mellitus with diabetic polyneuropathy, Z79.4 - terminal make up operator (current) use of insulin Microalbumin, Random (w Creat) Today E11.42 - Type 2 diabetes mellitus with diabetic polyneuropathy, Z79.4 - [facility] (current) use of insulin AMB Hemoglobin A1c Today Z13.9 - Encounter for screening, unspecified Coding Level of Care Code Est Pt Level 3 (19146) Diagnoses Type 2 diabetes mellitus with diabetic polyneuropathy, with long-term current use of insulin E11.42; Z79.4 Diabetes mellitus [facility] insulin use: with laborer marine terminal use Additional Codes JESSA-7 Assessment Billing - JESSA-7 Assessment Tool: JESSA-7 Assessment 33504 ([id number])
[2023-12-30 10:56] VITALS: BP 122/76; PULSE 72; O2SAT 98
== END 2023-12-30 11:21 | disposition home or self-care (01) ==
PROVIDERS: PCP Nurse Practitioner Family; Visit Provider Nurse Practitioner Family
DX: E11.42 Type 2 diabetes mellitus with diabetic polyneuropathy (principal); Z79.4 Long term (current) use of insulin
CPT/HCPCS: 83036; 99213

== ENCOUNTER 2024-01-06 10:27 | Outpatient (AMB) | payer MEDICARE, MEDICAID, SELFPAY ==
--- NOTE | 2024-01-06 10:38 | A.OFFVIS_ITS ---
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 When asked what was going on the patient started to talk about his cough to which I told him this was for vascular . He does not know why he is here. Neither does the aide that is with him. 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 He was seen and worked up by Nephrology who is in the process of being worked up for CKD 3. It was noted that he has lower extremity pain and discomfort. He now presents to us for vascular evaluation. Upon discussion with him is able to ambulate a block or 2. He also reports that he is smoking nearly 2 packs per day. Now presents to us for vascular evaluation. [facility] Medical History Tardive dyskinesia Parkinsonism Lives in [facility] Chronic bronchitis Schizophrenia Centrilobular emphysema Essential hypertension Hyperlipidemia LDL goal <70 COPD (chronic obstructive pulmonary disease) Smoker Type 2 diabetes mellitus with diabetic polyneuropathy Multiple pulmonary nodules Surgical History No pertinent past surgical history Family History Father Prostate cancer Diabetes Mother Diabetes Hypertension CVD (cardiovascular disease) Social History Household Members: Other Housing: Other Housing Other:: skilled nursing Do you presently have visiting nurse or other home services: Yes Unable to assess alcohol history related to: Refusing to respond Alcohol intake: unknown Patient Tobacco Use Status: Current everyday Tobacco user Tobacco use type: Cigarette Cigarette Packs Per Day: 4 Cigarettes Per Day: 80 Years Smoked: 40 Smoked in Last 30 Days: No Use of substances other than those prescribed or required for medical reasons: No Advance Directives: Yes Advance Directives on File: Yes Advance Directives Date on File: 10/25/22 service: No Current occupational status: disabled Cognitive needs: No Hearing needs: No Vision needs: No Review of Systems Const All systems reviewed & are unremarkable except as noted in HPI and below Reports no additional complaints ENT Reports Normal hearing present Card Denies chest pain, Denies chest pain at rest, Denies chest pain with activity and Denies pedal edema Resp Denies cough GI Denies abdominal pain Musc Denies abnormal gait, Denies muscle cramps and Denies radiating pain into limb Skin/Breast Denies skin ulcer and Denies wounds Neuro Reports Normal hearing present and Denies abnormal gait Psych Reports no additional complaints Physical Exam Const General: cooperative, healthy appearing and comfortable Orientation/consciousness: oriented to person, oriented to place and oriented to time HEENT Head: Yes normal to inspection Neck Neck: Yes normal visual inspection Carotids: no bruits Chest Chest palpation & inspection: normal inspection of the chest Resp Effort & Inspection: normal respiratory effort and able to speak in complete sentences Auscultation: clear to auscultation bilaterally, no crackles, no rales, no rhonchi and no wheezes Cardio Other: Palpable dorsalis pedis pulses bilaterally Rate: regular rate Rhythm: regular rhythm Heart sounds: S1 normal heart sound present and S2 normal heart sound present Bruits: no carotid bruits Peripheral pulses: Peripheral pulses 2+ throughout GI Inspection: Yes normal to inspection Skin Wounds: no wounds Hair: normal Neuro General: oriented to person, oriented to place and oriented to time Cranial nerves: Yes CN's II-XII intact bilaterally and Yes Normal hearing present Cognition (Neuro): normal cognition Motor exam (neuro): 5/5 motor strength present throughout Extrem Other: venous exam: +1 edema General: No clubbing, No cyanosis and Yes edema Psych Appearance: grossly normal Mental Status: mental status grossly normal Speech and movement: Normal speech and movement present Results Reviewed Results Reviewed: 10/15/2023 CT scan of abdomen and pelvis was negative for abdominal aortic aneurysm Assessment & Plan Assessment & Plan (1) PAD (peripheral artery disease): Code(s): I73.9 - Peripheral vascular disease, unspecified Category: Medical Plan: At the current time I do feel palpable pulses. We will work him up for venous disease. (2) Varicose veins of right lower extremity with inflammation: Code(s): I83.11 - Varicose veins of right lower extremity with inflammation Category: Medical Plan: I did appreciate some swelling of the lower extremities. Some of this may be related to his CKD. I have taken the liberty of ordering venous insufficiency testing to rule that out. He will follow up with us after testing Orders: Orders US venous duplex LE BI 1 Week I83.11 - Varicose veins of right lower extremity with inflammation Coding Level of Care Code New Pt Level 4 (13469) Diagnoses PAD (peripheral artery disease) I73.9 Varicose veins of right lower extremity with inflammation I83.11
== END 2024-01-06 11:19 | disposition home or self-care (01) ==
PROVIDERS: PCP Nurse Practitioner Family; Visit Provider Surgery Vascular Surgery
DX: I73.9 Peripheral vascular disease, unspecified (principal); I83.11 Varicose veins of right lower extremity with inflammation
CPT/HCPCS: 99203

== ENCOUNTER → 2024-01-06 10:27 | Outpatient (BNVA) | payer MEDICARE, MEDICAID, SELFPAY | PROVIDERS: PCP Nurse Practitioner Family; Visit Provider Surgery Vascular Surgery | DX: I73.9 Peripheral vascular disease, unspecified (principal); I83.11 Varicose veins of right lower extremity with inflammation | CPT/HCPCS: 99202 ==

== ENCOUNTER 2024-01-07 12:56 | Emergency (ER) | payer MEDICARE, MEDICAID, SELFPAY ==
--- NOTE | ~2024-01-07 | CT_ITS ---
EXAMINATION: CT HEAD WITHOUT CONTRAST CLINICAL INFORMATION: Altered mental status COMPARISON: CT head May 11, 2023 TECHNIQUE: Contiguous axial imaging was performed from the skull base to vertex without intravenous administration of contrast. Coronal and sagittal reformatted images are performed at the CT scanner. [This CT examination was performed using dose optimization techniques as appropriate, variously including the following: *Automated exposure control *Adjustment of mA and/or kV according to patient size (this includes techniques or standardized protocols for targeted exams where dose is matched to indication/reason for exam; i.e. extremities or head) *Use of iterative reconstruction technique] DLP: 710 mGy-cm. FINDINGS: There is no evidence of acute intracranial hemorrhage or territorial infarction. No abnormal mass-effect or midline shift is seen. Parrish to white matter differentiation is well preserved. No extra-axial fluid collections are identified. The ventricles are normal in size. There is no abnormal attenuation within the brain parenchyma. There is no osseous abnormality. The mastoid air cells and visualized portions of the paranasal sinuses are well-aerated. CT/CT head/brain wo IV con IMPRESSION: No acute intracranial pathology.
--- NOTE | 2024-01-07 13:12 | ED_ITS ---
HPI - General Adult General Chief complaint: Altered Mental Status Stated complaint: uti, confusion Time Seen by Provider: 01/07/24 13:23 Source: patient and RN notes reviewed Mode of arrival: EMS Limitations: altered mental status History of Present Illness HPI narrative: 60-year-old male past history of Parkinson's disease chronic kidney disease shuffling gait lower extremity weakness acute versus chronic encephalopathy history of hyponatremia pneumonia SIADH shoulder pain coronary artery disease pulmonary nodules smoker type 2 diabetes with neuropathy hypertension hyperlipidemia COPD who presents to the emergency department for change in mental status smells like urine patient is alert to person but not time or situation very confused very poor historian and the patient was dropped off and left alone by family and they stated that they are worried he has a UTI he does have a strong of ammonia Related Data Home Medications ?Medication ?Instructions ?Recorded ?Confirmed divalproex 500 mg tablet,extended 1,500 mg PO BEDTIME 07/16/21 12/25/23 release 24 hr vitamin E 1,150 unit/1.25 mL oral 1,000 unit PO DAILY 01/28/23 12/25/23 liquid cholecalciferol (vitamin D3) 50 50 mcg PO DAILY 09/02/23 12/25/23 mcg (2,000 unit) tablet hydrocortisone 2.5 % topical cream appl topical 10/13/23 12/25/23 nebulizers 10/13/23 12/25/23 olanzapine 20 mg tablet 20 mg PO BEDTIME 10/13/23 12/25/23 propranolol 10 mg tablet 10 mg PO .AM 10/13/23 12/25/23 propranolol 20 mg tablet 10 mg PO .PM 10/13/23 12/25/23 umeclidinium 62.5 mcg/actuation 1 inh inhalation DAILY 10/13/23 12/25/23 blister powder for inhalation (Incruse Ellipta) benztropine 2 mg tablet 2 mg PO BID 11/11/23 12/25/23 fluoxetine 10 mg capsule 10 mg PO DAILY 11/11/23 12/25/23 gabapentin 300 mg capsule 300 mg PO QAM 12/01/23 12/25/23 olanzapine 10 mg tablet 10 mg PO QAM 12/01/23 12/25/23 Previous Rx's ?Medication ?Instructions ?Recorded blood-glucose meter (FreeStyle #1 ea 05/24/21 Lite Meter kit) sennosides 8.6 mg tablet 17.2 mg (2 x 8.6 mg) PO DAILY PRN 12/05/22 constipation #60 tabs fluticasone fur. 100 mcg-umeclid 1 inh inhalation DAILY 30 days #60 02/06/23 62.5 mcg-vilant 25 mcg ea inhalat.powder (Trelegy Ellipta) ipratropium 0.5 mg-albuterol 3 mg 3 ml inhalation BID 30 days #180 mL 02/06/23 (2.5 mg base)/3 mL nebulization soln insulin degludec 100 unit/mL (3 10 unit (0.1 mL) subcut DAILY #15 03/05/23 mL) subcutaneous pen (Tresiba mL FlexTouch U-100 insulin) albuterol sulfate 90 mcg/actuation 2 inh inhalation Q4-6H PRN 03/24/23 breath activated powder inhaler shortness of breath or wheezing #1 ea aspirin 81 mg tablet,delayed 81 mg PO DAILY #90 tabs 06/18/23 release (Adult Low Dose Aspirin) docusate sodium 100 mg capsule 100 mg PO DAILY PRN constipation 06/18/23 #30 caps lancets 30 gauge (Ultra-Care 30 gauge miscellaneous TID #300 ea 07/01/23 Lancets) dulaglutide 0.75 mg/0.5 mL 0.75 mg (0.5 mL) subcut FR@0900 #6 07/05/23 subcutaneous pen injector mL (Trulicity) alcohol swabs (Alcohol Prep Pads) 1 pad topical DAILY 30 days #200 ea 07/24/23 amlodipine 10 mg tablet 10 mg PO DAILY 90 days #90 tabs 07/26/23 hydrocortisone 2.5 % topical cream 1 appl CA BID-QID PRN hemorrhoids 09/03/23 with perineal applicator #30 grams blood sugar diagnostic (FreeStyle #100 ea 09/23/23 Lite Strips) atorvastatin 10 mg tablet 10 mg PO BEDTIME #90 tabs 10/22/23 pen needle, diabetic 31 gauge x #100 ea 11/04/2310/17 (BD Ultra-Fine Mini Pen Needle) acetaminophen 650 mg 650 mg PO Q6H PRN pain 30 days 12/17/23 tablet,extended release (Tylenol 8 #120 tabs Hour) omeprazole 20 mg capsule,delayed 20 mg PO BID #180 caps 12/23/23 release sodium chloride 1,000 mg soluble 1,000 mg PO BID #60 tabs 01/06/24 tablet cefuroxime axetil 500 mg tablet 500 mg PO BID 7 days #14 tabs 01/07/24 Allergies Allergy/AdvReac Type Severity Reaction Status Date / Time No Known Allergies Allergy Mild NOT Verified 01/07/24 13:18 APPLICABLE Review of Systems 2 Review of Systems: Review of systems: General: Patient denies any fever chills recent illness or falls Musculoskeletal: Denies back pain or body aches or other injuries HEENT: denies headache, runny nose, ear pain Respiratory: denies shortness of breath, cough Cardiovascular: no chest pain or palpitations : denies dysuria, frequency Abdomen: no nausea vomiting denies abdominal pain Extremities: no swelling, no pain Skin: no diaphoresis Yes all other systems are reviewed and are negative [facility] Past Medical History Medical History Tardive dyskinesia Parkinsonism Lives in senior living Chronic bronchitis Schizophrenia Centrilobular emphysema Essential hypertension Hyperlipidemia LDL goal <70 COPD (chronic obstructive pulmonary disease) Smoker Type 2 diabetes mellitus with diabetic polyneuropathy Multiple pulmonary nodules Surgical History No pertinent past surgical history Family History Family History Father Prostate cancer Diabetes Mother Diabetes Hypertension CVD (cardiovascular disease) Social History Social History Household Members: Other Housing: Other Housing Other:: [facility] Do you presently have visiting nurse or other home services: Yes Unable to assess alcohol history related to: Refusing to respond Alcohol intake: unknown Patient Tobacco Use Status: Current everyday Tobacco user Tobacco use type: Cigarette Cigarette Packs Per Day: 4 Cigarettes Per Day: 80 Years Smoked: 40 Smoked in Last 30 Days: No Use of substances other than those prescribed or required for medical reasons: No Advance Directives: Yes Advance Directives on File: Yes Advance Directives Date on File: 10/25/22 service: No Current occupational status: disabled Cognitive needs: No Hearing needs: No Vision needs: No Physical Exam ED Vital Signs: Vital Signs - 24 hr 01/07/24 13:14 Temperature 97.2 F Pulse Rate 72 Respiratory Rate 16 Blood Pressure 107/58 L Pulse Oximetry 95 Oxygen Delivery Method Room Air BMI result Body Mass Index 24.0 Neurological exam: CN II- XII tested. Patient is alert and oriented to person place and time. Patient has no dysphagia or dysarthia, denies good vision in all four vision lin no nystagmus on exam, good strength to upper and lower extremities with normal reflexes to brachioradialis, wrist, patella and achilles. Negative romberg, good finger to nose and heel to almaguer. General: Well-appearing well-nourished in no signs of distress HEENT: Normocephalic atraumatic Neck: No signs of JVD, no masses no tenderness or lymphadenopathy Cardiovascular: Regular rate and rhythm Respiratory: Clear to auscultation bilaterally Abdomen: Soft nontender no masses Extremities: Normal pedal pulses no signs of edema Skin: Dry warm no rashes Back: No tenderness full ROM Course Course Course Narrative: This is a rapid medical exam performed by Taye Kim NP: Additional HPI, ROS, PE not included below will be deferred to primary provider. Patient is a 68-year-old Persian speaking male with hx of COPD, SIADH, hyponatremia, schizophrenia, T2DM, GERD, HTN dropped off in the waiting room by [facility] staff with a demographics sheet and a post-it note which reads UTI, urinating on self, confused. Patient drowsy in triage, A+Ox2, unable to state why he is here. Charge nurse notified. Plan: labs, UA, viral swabs, cxr Reevaluation(s) Reevaluation #1: Patient found to have UTI started on cefuroxime Reevaluation #2: Family have patient call the bedside he is concerned that he has been sleepy patient is on multiple medications benztropine as well as Depakote a cause fatigue I think more likely the UTI lives at a facility where they do all his medications he states he can go pick up attendant his antibiotics on the way home I do feel the patient safe to go home. Medications Administered Discontinued Medications Generic Name Dose Route Start Last Admin Trade Name Freq PRN Reason Stop Dose Admin Cefuroxime Axetil 500 mg 01/07/24 14:32 01/07/24 15:01 Cefuroxime Axetil 500 Mg Tablet PO 01/07/24 14:33 500 mg ONCE ONE Administration Medical Decision Making Medical Decision Making [facility] Narrative: Start with fluids the patient for CT scan labs and urine I did a straight catheter in asked for nursing to do a straight on arrival as well as start the IV patient has a strong smell urinary do think his UTI. Differential Diagnosis Differential Diagnoses: The differential diagnosis associated with the presentation includes UTI for mental status change in mental status dehydration electrolyte abnormality pneumonia Admission/Observation Consideration of admission/observation: Escalation of care including admission/observation considered Lab Data [facility] Lab Attestation statement: I reviewed the patient's lab results. 01/07/24 14:06 01/07/24 14:06 Labs: Lab Results 01/07/24 Range/Units 14:06 WBC 5.7 (4.8-10.8) X10*3/uL RBC 3.58 L (4.60-5.80) X10*6/uL Hgb 10.3 L (14.0-18.0) g/dl Hct 31.0 L (42.0-52.0) % MCV 86.6 (80.0-98.0) fL MCH 28.8 (27.0-33.0) pg MCHC 33.2 (31.0-36.0) g/dl RDW 15.6 (11.0-16.0) % Plt Count 126 L (160-400) X10*3/uL MPV 10.1 (9.4-12.4) fL Immature Gran % (Auto) 0.5 H (0.0-0.4) % Neut % (Auto) 56.9 (45-73) % Lymph % (Auto) 28.2 (20-40) % Brooke % (Auto) 10.1 (2-11) % Eos % (Auto) 3.9 (0-4) % Baso % (Auto) 0.4 (0-2) % Lymph # (Auto) 1.6 (1.2-4.9) X10*3/uL Brooke # (Auto) 0.6 (0.1-1.2) X10*3/uL Eos # (Auto) 0.2 (0.0-0.4) X10*3/uL Baso # (Auto) 0.0 (0.0-0.2) X10*3/uL Abs Immat Gran (auto) 0.03 (0.00-0.03) X10*3/uL Absolute Neuts (auto) 3.2 (2.0-8.3) x10*3/uL Absolute Nucleated RBC 0.000 (0.0-0.012) X10*3/uL Nucleated RBC % (auto) 0.0 (0.0-0.2) /100WBC PT 12.2 (11.1-13.3) SEC INR 1.0 (0.9-1.1) Sodium 136 (135-145) mmol/L Potassium 4.0 (3.3-5.1) mmol/L Chloride 102 (96-108) mmol/L Carbon Dioxide 25 (22-29) mmol/L Anion Gap 13 (12-20) BUN 20 H (9-16) mg/dL Creatinine 1.28 (0.5-1.4) mg/dL Estim Creat Clear Calc 46.2 Estimated GFR 56 Random Glucose 141 H (60-115) mg/dL Calcium 8.7 (8.4-10.2) mg/dL Magnesium 1.9 (1.6-2.6) mg/dL Total Bilirubin 0.2 (0.0-1.0) mg/dL AST 19 (5-37) U/L ALT 11 (0-40) U/L Alkaline Phosphatase 52 (39-117) U/L Total Protein 6.9 (6.5-8.0) g/dL Albumin 3.2 L (3.5-5.0) g/dL Urine Color Yellow Urine Appearance Cloudy Urine pH 6.5 (5.0-9.0) Ur Specific [place] 1.015 (1.005-1.025) Urine Protein Trace (Neg-Trace) mg/dL Urine Glucose (UA) Negative (Negative) mg/dL Urine Ketones Trace (Negative) mg/dL Urine Blood Moderate (2+) H (Negative) Urine Nitrite Positive H (Negative) Ur Leukocyte Esterase Large (3+) H (Negative) Urine RBC >20 H (0-2) /HPF Urine WBC >50 H (0-5) /HPF Ur Squamous Epith Cells 0-2 (0-2) /HPF Urine Bacteria 4+ (None Seen) Hyaline Casts 0-2 (0-2) /LPF Urine Opiates Screen Not Detected (Not Detect) Ur Buprenorphine Scrn Not Detected (Not Detect) ng/mL Ur Oxycodone Screen Not Detected (Not Detect) ng/mL Urine Methadone Screen Not Detected (Not Detect) ng/mL Urine Fentanyl Screen Not Detected (Not Detect) Ur Barbiturates Screen Not Detected (Not Detect) Ur Phencyclidine Scrn Not Detected (Not Detect) Ur Amphetamines Screen Not Detected (Not Detect) U Benzodiazepines Scrn Not Detected (Not Detect) Urine Cocaine Screen Not Detected (Not Detect) U Marijuana (THC) Screen Not Detected (Not Detect) Ethyl Alcohol < 10 mg/dL Influenza Type A (PCR) NEGATIVE (Negative) Influenza Type B (PCR) NEGATIVE (Negative) RSV RNA Qual (PCR) NEGATIVE (Negative) SARS-CoV-2 RNA (RT-PCR) NEGATIVE (Negative) Chronic Conditions Parkinson's disease chronic kidney disease shuffling gait lower extremity weakness acute versus chronic encephalopathy history of hyponatremia pneumonia SIADH shoulder pain coronary artery disease pulmonary nodules smoker type 2 diabetes with neuropathy hypertension hyperlipidemia COPD Discharge Plan Discharge Clinical Impression: Urinary tract infection Patient Disposition: Home, Self-Care Instructions: Urinary Tract Infection in Men (DC) Additional Instructions: You were seen today in the emergency department for sleepiness and a bladder infection. You had labs and urine as well as an x-ray and CT scan of your head. Everything came back normal other than a bladder infection. Please take the antibiotics as prescribed. If you have worsening fever worsening change in mental status please return to emergency department. Prescriptions: New cefuroxime axetil 500 mg tablet 500 mg PO BID 7 Days Qty: 14 0RF No Action (DME) blood-glucose meter [FreeStyle Lite Meter] Kit See Rx Instructions .ROUTE .MEDSUPPLY Qty: 1 0RF Rx Instructions: As directed sennosides 8.6 mg tablet 17.2 mg PO DAILY PRN (Reason: constipation) Qty: 60 2RF insulin degludec [Tresiba FlexTouch U-100] 100 unit/mL (3 mL) insulin pen 10 unit subcut DAILY Qty: 15 1RF albuterol sulfate 90 mcg/actuation aerosol powdr breath activated 2 inh inhalation Q4-6H PRN (Reason: shortness of breath or wheezing) Qty: 1 2RF aspirin [Adult Low Dose Aspirin] 81 mg tablet,delayed release (DR/EC) 81 mg PO DAILY Qty: 90 1RF docusate sodium 100 mg capsule 100 mg PO DAILY PRN (Reason: constipation) Qty: 30 6RF lancets [Ultra-Care Lancets] 30 gauge misc 30 gauge miscellaneous TID Qty: 300 1RF Trulicity 0.75 mg/0.5 mL pen injector 0.75 mg subcut FR@0900 Qty: 6 1RF alcohol swabs [Alcohol Prep Pads] Pads, Medicated 1 pad topical DAILY 30 Days Qty: 200 5RF amlodipine 10 mg tablet 10 mg PO DAILY 90 Days Qty: 90 1RF (DME) FreeStyle Lite Strips Strip See Rx Instructions .Route Qty: 100 0RF Rx Instructions: Use to check blood sugar once a day atorvastatin 10 mg tablet 10 mg PO BEDTIME Qty: 90 1RF (DME) pen needle, diabetic [BD Ultra-Fine Mini Pen Needle] 31 gauge x 3/16 needle See Rx Instructions subcut TID Qty: 100 1RF Rx Instructions: As directed to inject insulin daily acetaminophen [Tylenol 8 Hour] 650 mg tablet extended release 650 mg PO Q6H PRN (Reason: pain) 30 Days Qty: 120 0RF omeprazole 20 mg capsule,delayed release(DR/EC) 20 mg PO BID Qty: 180 0RF sodium chloride 1,000 mg tablet,soluble 1,000 mg PO BID Qty: 60 2RF propranolol 20 mg tablet 10 mg PO .PM gabapentin 300 mg capsule 300 mg PO QAM Rx Instructions: 600mg in PM vitamin E 1,150 unit/1.25 mL liquid 1,000 unit PO DAILY cholecalciferol (vitamin D3) 50 mcg (2,000 unit) tablet 50 mcg PO DAILY hydrocortisone 2.5 % cream with perineal applicator 1 appl CA BID-QID PRN (Reason: hemorrhoids) Qty: 30 0RF divalproex 500 mg tablet extended release 24 hr 1,500 mg PO BEDTIME ipratropium-albuterol 0.5 mg-3 mg(2.5 mg base)/3 mL solution for nebulization 3 ml inhalation BID 30 Days Qty: 180 11RF Trelegy Ellipta 100-62.5-25 mcg blister with device 1 inh inhalation DAILY 30 Days Qty: 60 11RF olanzapine 20 mg tablet 20 mg PO BEDTIME propranolol 10 mg tablet 10 mg PO .AM Incruse Ellipta 62.5 mcg/actuation blister with device 1 inh inhalation DAILY hydrocortisone 2.5 % cream topical (DME) nebulizers Misc See Rx Instructions .Route Rx Instructions: As directed olanzapine 10 mg tablet 10 mg PO QAM benztropine 2 mg tablet 2 mg PO BID fluoxetine 10 mg capsule 10 mg PO DAILY Print Language: Persian
[2024-01-07 13:14] VITALS: BP 107/58; PULSE 72; RESP 16; TEMP 36.2; O2SAT 95; BMI 24.0
[2024-01-07 14:19] LABS: MANUAL DIFF FLAG NO
--- NOTE | 2024-01-07 14:19 | PC.NURSE ---
upon entering room - pt nonverbal to verbal stimuli. sternal rub performed - verbal to physical stimuli. pt changed into fresh hospital attire. pads placed. ammonia smell noted to pt. straight catheterization performed w success. 800ml of cloudy/dark/foul smelling urine noted immediately post output. UA obtained/sent to lab. 20gIV placed in the right AC - labs obtained/sent to lab. pt repositioned upright to promote patent airway. no sob/wob noted. respirations even and unlabored. call estes placed within reach.
[2024-01-07 14:21] LABS: Appearance Urine Cloudy; Color Urine Yellow; Glucose Urine UA Negative (Negative); Leukocyte Esterase Urine Large (3+) (Negative); Nitrite Urine Positive (Negative); PH 6.5 (5.0-9.0); Specific Gravity - Urine 1.015 (1.005-1.025); UMIC TRIGGER UACC YES; Urine Blood Moderate (2+) (Negative); Urine Ketones Trace mg/dL (Negative); Urine Protein Trace mg/dL (Neg-Trace)
[2024-01-07 14:26] LABS: Bacteria Urine 4+ (None Seen); Basophils Percent Auto 0.4 % (0-2); Eosinophils Absolute Auto 0.2 X10*3/uL (0.0-0.4); Eosinophils Percent Auto 3.9 % (0-4); Hemoglobin 10.3 g/dl (14.0-18.0); Hyaline Casts Urine 0-2 /LPF (0-2); Imm Gran Abs Auto 0.03 X10*3/uL (0.00-0.03); Imm Gran Pct Auto 0.5 % (0.0-0.4); Lymphocytes Absolute Auto 1.6 X10*3/uL (1.2-4.9); Lymphocytes Percent Auto 28.2 % (20-40); Mean Corpuscular HGB Conc 33.2 g/dl (31.0-36.0); Mean Corpuscular Hemoglobin 28.8 pg (27.0-33.0); Mean Corpuscular Volume 86.6 fL (80.0-98.0); Mean Platelet Volume 10.1 fL (9.4-12.4); Monocytes Absolute Auto 0.6 X10*3/uL (0.1-1.2); Monocytes Percent Auto 10.1 % (2-11); Neutrophils Absolute Auto 3.2 x10*3/uL (2.0-8.3); Neutrophils Percent Auto 56.9 % (45-73); Platelet Count 126 X10*3/uL (160-400); RBC Urine >20 /HPF (0-2); Red Blood Count 3.58 X10*6/uL (4.60-5.80); Red Cell Distribution Width 15.6 % (11.0-16.0); Squamous Epithelial Cell Urine 0-2 /HPF (0-2); UACC Culture Trigger YES; WBC Urine >50 /HPF (0-5); White Blood Count 5.7 X10*3/uL (4.8-10.8)
[2024-01-07 14:27] LABS: Prothrombin Time 12.2 SEC (11.1-13.3)
[2024-01-07 14:31] LABS: Amphetamine Screen Urine Not Detected (Not Detect); Barbiturates, Urine Not Detected (Not Detect); Benzodiazepines Screen Urine Not Detected (Not Detect); Buprenorphine Scr Not Detected (Not Detect); Cannabinoid Screen Urine Not Detected (Not Detect); Cocaine Screen Urine Not Detected (Not Detect); Fentanyl, urine Not Detected (Not Detect); Methadone Screen, Urine Not Detected (Not Detect); Opiate Screen Urine Not Detected (Not Detect); Oxycodone Screen Urine Not Detected (Not Detect); Phencyclidine Screen Urine Not Detected (Not Detect)
[2024-01-07 14:39] LABS: Alanine Aminotransferase 11 U/L (0-40); Albumin Level 3.2 g/dL (3.5-5.0); Alkaline Phosphatase 52 U/L (39-117); Anion Gap 13 (12-20); Aspartate Amino Transferase 19 U/L (5-37); Bilirubin Total 0.2 mg/dL (0.0-1.0); Blood Urea Nitrogen 20 mg/dL (9-16); Calcium 8.7 mg/dL (8.4-10.2); Carbon Dioxide 25 mmol/L (22-29); Chloride 102 mmol/L (96-108); Creatinine Clr Calc Pharmacy 46.2; Estimated Glomerular Filt Rate 56; Glucose Random 141 mg/dL (60-115); Magnesium 1.9 mg/dL (1.6-2.6); Sodium 136 mmol/L (135-145); Total Protein 6.9 g/dL (6.5-8.0)
[2024-01-07 14:40] LABS: Ethanol < 10 mg/dL
[2024-01-07] MEDS: cefuroxime axetiL 500 MG TABLET PO (15:01)
[2024-01-07 15:02] LABS: Influenza A PCR NEGATIVE (Negative); Influenza B PCR NEGATIVE (Negative); Resp Syncy Virus RNA Qual PCR NEGATIVE (Negative); SARS COV2 PCR INHOUSE NEGATIVE (Negative)
--- NOTE | 2024-01-07 15:17 | PC.NURSE ---
pt lethargic and very soft spoken. with care trainer, pt says that he lives alone. Bedside swallow screen done. Pt passed. PO ABX given.
[2024-01-07 15:54] VITALS: BP 169/80; PULSE 66; RESP 18; TEMP 36.6; O2SAT 95
== END 2024-01-07 15:58 | disposition home or self-care (01) ==
PROVIDERS: Registered Nurse Emergency; Emergency Provider Student in an Organized Health Care Education/Training Program; PCP Nurse Practitioner Family
DX: N39.0 Urinary tract infection, site not specified (principal); B95.7 Other staphylococcus as the cause of diseases classified elsewhere; R41.82 Altered mental status, unspecified; G20.A1 Parkinson's disease without dyskinesia, without mention of fluctuations; R26.89 Other abnormalities of gait and mobility; E11.9 Type 2 diabetes mellitus without complications; I10 Essential (primary) hypertension; E78.5 Hyperlipidemia, unspecified; J44.9 Chronic obstructive pulmonary disease, unspecified; I83.11 Varicose veins of right lower extremity with inflammation; I73.9 Peripheral vascular disease, unspecified; G24.01 Drug induced subacute dyskinesia; F17.210 Nicotine dependence, cigarettes, uncomplicated; R91.8 Other nonspecific abnormal finding of lung field; Z03.818 Encounter for observation for suspected exposure to other biological agents ruled out; Z79.4 Long term (current) use of insulin; Z79.899 Other long term (current) drug therapy; Z79.85 Long-term (current) use of injectable non-insulin antidiabetic drugs; Z79.02 Long term (current) use of antithrombotics/antiplatelets; Z79.82 Long term (current) use of aspirin
CPT/HCPCS: 0241U; 36415; 70450; 80053; 80307; 81001; 83735; 85025; 85610; 87086; 87088; 87186; 99284

== ENCOUNTER 2024-01-20 07:57 | Inpatient (IN) | payer MEDICARE, MEDICAID, SELFPAY ==
[2024-01-20] VITALS (11 sets, daily range): BP systolic 137–158; BP diastolic 65–80; PULSE 73–92; RESP 16–29; TEMP 36.3–36.7; O2SAT 93–97; BMI 21.7; BMI 20.9
--- NOTE | 2024-01-20 | ECG_ITS ---
Test Reason : FALL Blood Pressure : / mmHG Vent. Rate : 072 BPM Atrial Rate : 072 BPM P-R Int : 164 ms QRS Dur : 096 ms QT Int : 390 ms P-R-T Axes : -22 047 036 degrees QTc Int : 427 ms Normal sinus rhythm Nonspecific ST and T wave abnormality Abnormal ECG When compared with ECG of 25-NOV-2023 19:04, No significant change was found Referred By: Ada Wren Electronically Signed By:Darin Taylor
--- NOTE | ~2024-01-20 | XR_ITS ---
EXAMINATION: XR PELVIS CLINICAL INFORMATION: Left hip hemiarthroplasty COMPARISON: Previous x-ray from yesterday TECHNIQUE: AP view of the pelvis. FINDINGS: New left hip hemiarthroplasty in satisfactory position. No fracture or dislocation. Postoperative changes to the soft tissues. XR/XR pelvis 1-2V IMPRESSION: Satisfactory appearance of left hip hemiarthroplasty.
--- NOTE | ~2024-01-20 | CT_ITS ---
CT head/brain wo IV con CLINICAL INFORMATION: Reason for Exam Altered mental status COMPARISON: No prior CT scan available for comparison. TECHNIQUE: Department standard protocol. This CT examination was performed using dose optimization techniques as appropriate, variously including the following: *Automated exposure control *Adjustment of mA and/or kV according to patient size (this includes techniques or standardized protocols for targeted exams where dose is matched to indication/reason for exam; i.e. extremities or head) *Use of iterative reconstruction technique DLP: 801 mGy-cm FINDINGS: CEREBRAL HEMISPHERES: There is no evidence of intra-axial or extra-axial mass, hemorrhage or acute infarct. BRAIN PARENCHYMA: Normal regan-white matter differentiation. SUBDURAL SPACE: No bleed. BASAL GANGLIA AND PINEAL GLAND: Unremarkable VENTRICLES: Symmetric and normal in size. CEREBELLUM AND BRAINSTEM: No space-occupying mass, hemorrhage or acute infarct. CEREBELLOPONTINE ANGLES: No lesion found. ORBITS: No intraorbital mass. VESSELS: Unremarkable SKULL BASE: Unremarkable INCLUDED SINUSES AT SKULL BASE: Clear SKULL AND SKIN: No fracture or bone lesion found. CT/CT head/brain wo IV con IMPRESSION: No CT evidence of intracranial space-occupying mass, bleed or infarct. Normal CT scan does not rule out the possibility of hyperacute infarct in the first 12 hours. If patient symptoms persist may consider correlation with MRI, which is more sensitive for early acute infarct.
--- NOTE | ~2024-01-20 | XR_ITS ---
EXAMINATION: XR HIP, LEFT CLINICAL INFORMATION: Fall hip pain COMPARISON: None available. TECHNIQUE: 4 views of the left hip. FINDINGS: Basicervical/transcervical left femoral neck fracture with prominent varus angulation. Degenerative arthropathy of the bilateral femoral acetabular joints and lumbosacral spine. Joint spaces and alignment are otherwise maintained. Soft tissues are unremarkable. Pelvic limits are noted. Fecal loading the visualized colon. XR/XR hip LT w PEL1V IMPRESSION: 1. Basicervical/transcervical left femoral neck fracture with prominent varus angulation. 2. Degenerative arthropathy of the bilateral femoral acetabular joints and lumbosacral spine.
--- NOTE | ~2024-01-20 | CT_ITS ---
EXAMINATION: CT HEAD WITHOUT CONTRAST CLINICAL INFORMATION: Fall head strike COMPARISON: CT head from 01/07/2024 TECHNIQUE: Contiguous axial imaging was performed from the skull base to vertex without intravenous administration of contrast. This CT examination was performed using dose optimization techniques as appropriate, variously including the following: *Automated exposure control *Adjustment of mA and/or kV according to patient size (this includes techniques or standardized protocols for targeted exams where dose is matched to indication/reason for exam; i.e. extremities or head) *Use of iterative reconstruction technique DLP: 822.94 mGy-cm FINDINGS: There is no evidence of acute intracranial hemorrhage or territorial infarction. Chronic white matter small vessel ischemic changes. Cerebral atrophy with commensurate ventricular changes No abnormal mass effect or midline shift is seen. Parrish to white matter differentiation is well preserved. No extra-axial fluid collections are identified. The ventricles are normal in size. There is no abnormal attenuation within the brain parenchyma. The osseous structures and soft tissues are normal. The mastoid air cells and visualized portions of the paranasal sinuses are well aerated. CT/CT cervical spine wo IV con IMPRESSION: 1. No acute intracranial pathology. 2. Chronic white matter small vessel ischemic changes. EXAMINATION: Noncontrast CT scan of the cervical spine. INDICATION: Fall head strike COMPARISON: None. TECHNIQUE: Helical, multidetector axial images were obtained from the occiput to the upper thorax. Coronal and sagittal reformats of the cervical spine were provided for interpretation. DLP: 381 mGy-cm FINDINGS: Evaluation is severely limited secondary to patient motion artifact. Straightening the normal cervical curvature. Multilevel degenerative changes. No acute fractures or dislocations of the cervical spine are seen. Anatomic alignment and positioning of the vertebral bodies and posterior elements is noted. The atlantoaxial joint and craniovertebral articulations are normal without evidence of subluxation. There is no prevertebral soft tissue swelling. Hypodense focus right thyroid lobe measuring 9 mm. Additional peripherally calcified focus left thyroid lobe measuring 7 mm. Based on the recommendations of the ACR Incidental Thyroid Findings Committee (JACR 2014; 12(2):143-50), no imaging followup is recommended for incidental thyroid nodules with largest axial dimension less than 1.5 cm in patients greater than 35 years of age in the absence of high risk imaging features, symptomatic thyroid disease, or increased risk for thyroid cancer. Emphysematous changes of the visualized lung lin with biapical pleural parenchymal scarring. IMPRESSION: 1. Evaluation is severely limited secondary to patient motion artifact. 2. No acute visible fracture or dislocation. 3. Straightening the normal cervical curvature. 4. Multilevel degenerative changes.
--- NOTE | ~2024-01-20 | XR_ITS ---
EXAMINATION: XR CHEST CLINICAL INFORMATION: Fall COMPARISON: Chest radiograph from 11/25/2023 TECHNIQUE: Frontal view of the chest was obtained. FINDINGS: Stable elevation left hemidiaphragm. Streaky opacities in bilateral lung bases, right greater than left suggesting atelectasis. No pneumothorax. Trachea is midline. Cardiac mediastinal silhouette is not enlarged. No large pleural effusion. Osseous structures are intact. Soft tissues are unremarkable. XR/XR chest 1V IMPRESSION: 1. Stable elevation left hemidiaphragm. 2. Streaky opacities in bilateral lung bases, right greater than left suggesting atelectasis.
--- NOTE | ~2024-01-20 | XR_ITS ---
EXAMINATION: XR CHEST CLINICAL INFORMATION: Hyperventilation COMPARISON: 01/20/2024 TECHNIQUE: Frontal view of the chest was obtained. FINDINGS: Lungs are well expanded and without evidence of acute disease. No consolidation, edema or pleural effusion. No pneumothorax. Cardiac silhouette has normal size and contour. Pulmonary vascular pattern is normal. No acute osseous abnormality. XR/XR chest 1V IMPRESSION: No acute cardiopulmonary abnormality.
--- NOTE | 2024-01-20 08:15 | PC.NURSE ---
biba from half-way d/t left lip/hip pain. pt found on ground x unknown time. pt verbalizes attempting to get out of bed/fell. -headstrike, -loc, +ASA. pt changed over into hospital attire. foul urine smell noted from pt. pt provided w/ urinal so UA can be obtained. 20gIV placed in the right AC - labs obtained/sent to lab. ekg performed by tech. no sob/wob noted. respirations even/unlabored. plan of care ongoing. call estes placed within reach.
[2024-01-20 08:29] LABS: MANUAL DIFF FLAG NO
--- NOTE | 2024-01-20 08:31 | ED.LOWEXIN ---
HPI - Extremity Injury (Lower) General Chief Complaint: Extremity Injury, Lower Stated Complaint: LLE PAAIN S/P UNWIT FALL FRO [facility] PER EMS Time Seen by Provider: 01/20/24 08:08 Source: patient, EMS, RN notes reviewed and other ([facility] staff) Mode of arrival: EMS Limitations: no limitations History of Present Illness ED Provider: ULICES MARTINEZ PA-C HPI Narrative: 69 year old male with pmhx significant for tardive dyskinesia, parkinsonism, schizophrenia, centrilobular emphysema, COPD, hypertension, HDL, type 2 diabetes with diabetic polyneuropathy presents to the ED today via EMS from [facility] for evaluation of left hip pain s/p mechanical fall this morning. Per patient, he attempted to get out of bed to ambulate to the bathroom when he lost his balance and fell to the ground. Reports hitting the back of his head on the bed frame. Denies LOC. Not on AC however takes 81mg aspirin daily. Reports group staff foudn him however was not able to assist him up as he was having left hip pain. EMS was called and patient was then transported to ED for further evaluation. In ED, patient complains of left hip pain. He is unable to move the left leg secondary to this pain. Pain does not radiate. EMS states that patient ambulates with unsteady gait at baseline secondary to his tardive dyskinesia. Additionally endorses mild posterior headache secondary to head strike. Denies vision changes, nausea or vomiting. Related Data Home Medications ?Medication ?Instructions ?Recorded ?Confirmed divalproex 500 mg tablet,extended 1,500 mg PO BEDTIME 07/16/21 01/20/24 release 24 hr vitamin E 1,150 unit/1.25 mL oral 1,000 unit PO DAILY 01/28/23 01/20/24 liquid hydrocortisone 2.5 % topical cream 1 appl topical DAILY PRN 10/13/23 01/20/24 immflamation nebulizers 10/13/23 12/25/23 olanzapine 20 mg tablet 20 mg PO BEDTIME 10/13/23 01/20/24 propranolol 10 mg tablet 10 mg PO DAILY 10/13/23 01/20/24 propranolol 20 mg tablet 20 mg PO BEDTIME 10/13/23 01/20/24 benztropine 2 mg tablet 2 mg PO TID 11/11/23 01/20/24 gabapentin 300 mg capsule 300 mg PO DAILY 12/01/23 01/20/24 olanzapine 10 mg tablet 10 mg PO DAILY 12/01/23 01/20/24 albuterol sulfate 90 mcg/actuation 2 inh inhalation Q4H PRN shortness 01/20/24 01/20/24 breath activated powder inhaler of breath or wheezing docusate sodium 100 mg capsule 100 mg PO DAILY constipation 01/20/24 01/20/24 fluoxetine 20 mg capsule 20 mg PO DAILY 01/20/24 01/20/24 gabapentin 600 mg tablet 600 mg PO BEDTIME 01/20/24 01/20/24 omeprazole 20 mg capsule,delayed 20 mg PO DAILY@0630 01/20/24 01/20/24 release Previous Rx's ?Medication ?Instructions ?Recorded blood-glucose meter (FreeStyle #1 ea 05/24/21 Lite Meter kit) sennosides 8.6 mg tablet 17.2 mg (2 x 8.6 mg) PO DAILY PRN 12/05/22 constipation #60 tabs fluticasone fur. 100 mcg-umeclid 1 inh inhalation DAILY 30 days #60 02/06/23 62.5 mcg-vilant 25 mcg ea inhalat.powder (Trelegy Ellipta) ipratropium 0.5 mg-albuterol 3 mg 3 ml inhalation BID 30 days #180 mL 02/06/23 (2.5 mg base)/3 mL nebulization soln insulin degludec 100 unit/mL (3 10 unit (0.1 mL) subcut DAILY #15 03/05/23 mL) subcutaneous pen (Tresiba mL FlexTouch U-100 insulin) dulaglutide 0.75 mg/0.5 mL 0.75 mg (0.5 mL) subcut FR@0900 #6 07/05/23 subcutaneous pen injector mL (Trulicity) amlodipine 10 mg tablet 10 mg PO DAILY 90 days #90 tabs 07/26/23 blood sugar diagnostic (FreeStyle #100 ea 09/23/23 Lite Strips) atorvastatin 10 mg tablet 10 mg PO BEDTIME #90 tabs 10/22/23 pen needle, diabetic 31 gauge x #100 ea 11/04/23/16 (BD Ultra-Fine Mini Pen Needle) acetaminophen 650 mg 650 mg PO Q6H PRN pain 30 days 12/17/23 tablet,extended release (Tylenol 8 #120 tabs Hour) sodium chloride 1,000 mg soluble 1,000 mg PO BID #60 tabs 01/06/24 tablet aspirin 81 mg tablet,delayed 81 mg PO DAILY #90 tabs 01/16/24 release (Adult Low Dose Aspirin) cholecalciferol (vitamin D3) 50 50 mcg PO DAILY #90 tabs 01/16/24 mcg (2,000 unit) tablet Allergies Allergy/AdvReac Type Severity Reaction Status Date / Time No Known Allergies Allergy Mild NOT Verified 01/20/24 08:12 APPLICABLE Review of Systems Review of Systems: Constitutional: No fever, chills, fatigue, night sweats, weight changes ENT/Mouth: No ear pain, hearing loss, nasal congestion, sinus pain, rhinorrhea, sore throat Eyes: No eye pain, swelling, redness, vision changes, discharge Cardio: No chest pain, palpitations, WOLFF, orthopnea, peripheral edema Pulm: No SOB, cough, sputum, wheezing, dyspnea, hemoptysis GI: No nausea, vomiting, hematemesis, abdominal pain, diarrhea, constipation, hematochezia, melena : No irregular bleeding, dysuria, frequency, urgency, hesitancy, hematuria, flank pain, urinary flow changes, urinary incontinence or retention MSK: No back pain, neck pain, joint pain, myalgias, +left hip pain Skin: No lesions, rashes Neuro: No weakness, numbness, paresthesias, LOC, dizziness, +headache Psych: No anxiety/panic, depression, SI/HI, AH/VH All other systems reviewed and are negative. FOR[facility]LY [facility], [facility] Past Medical History Attestation statement: The following information was validated with the patient. Source: old records reviewed and nursing notes reviewed Medical History Tardive dyskinesia Parkinsonism Lives in [facility] Chronic bronchitis Schizophrenia Centrilobular emphysema Essential hypertension Hyperlipidemia LDL goal <70 COPD (chronic obstructive pulmonary disease) Smoker Type 2 diabetes mellitus with diabetic polyneuropathy Multiple pulmonary nodules Surgical History No pertinent past surgical history Family History Family History Father Prostate cancer Diabetes Mother Diabetes Hypertension CVD (cardiovascular disease) Social History Social History Household Members: Other Household Members Other:: From [facility] Housing: Assisted Living Facility Housing Other:: long-term Do you presently have visiting nurse or other home services: Yes Unable to assess alcohol history related to: Refusing to respond Alcohol intake: unknown Comment: 1:1 Patient Tobacco Use Status: Tobacco use Unknown Tobacco use type: Cigarette Cigarette Packs Per Day: 4 Cigarettes Per Day: 80 Years Smoked: 40 Advance Directives Date on File: 10/25/22 service: No Current occupational status: disabled Cognitive needs: No Hearing needs: No Vision needs: No Physical Exam Vital Signs: Vital Signs: Last Vital Signs Temp 96.9 F 01/21/24 07:34 Pulse 76 01/21/24 08:52 Resp 18 01/21/24 08:22 BP 146/80 H 01/21/24 08:52 Pulse Ox 97 01/21/24 07:34 O2 Del Method Room Air 01/21/24 07:34 BMI result Body Mass Index 21.7 hypertensive, vitals otherwise wnl Const: General: cooperative and no acute distress Orientation/consciousness: oriented to person Limitations: no limitations HEENT: Head: Yes normal to inspection, Yes No palpable skull fracture present, Yes normocephalic, Yes atraumatic, No Zaidi's sign, No hematoma, No raccoon eyes and No periorbital ecchymosis Eyes: General: appearance normal, both eyes and all related structures Pupils: Equal, round and reactive pupils present Neck: Other: no cervical midline spinous tenderness or step off deformity Neck: Yes normal visual inspection Chest: Chest palpation & inspection: normal inspection of the chest, normal palpation of entire chest wall, no crepitus and no tenderness Resp: Effort & Inspection: normal respiratory effort and able to speak in complete sentences Auscultation: clear to auscultation bilaterally Cardio: Rate: regular rate Rhythm: regular rhythm GI: Inspection: Yes normal to inspection and No abdominal wall ecchymosis Palpation (GI): Soft to palpation and nontender Back/Spine/Pelvis: Other: No midline spinous tenderness or step off deformity. No paraspinal muscle tenderness. Skin: General skin exam: no rashes or lesions noted Neuro: Other: No saddle anesthesia.? Sensation intact to light touch.? Neurovascular intact distally.? General: oriented to person and Unable to assess gait Cranial nerves: Yes Equal, round and reactive pupils present Gait exam (Neuro): Unable to assess gait Extrem: Other: + left hip externally rotated. not noticeably shortened. No swelling, erythema, or ecchymosis. diffuse tenderness noted to left lower extremity extending from left hip to left knee. unable to flex at the left hip. NV intact distally. Course Course Course Narrative: 1111-- CBC without leukocytosis or left shift. Chronic anemia with stable H&H when compared to priors. No concern for acute blood loss. Coags WNL. BUN slightly elevated to 25, creatinine WNL at 1.18. No acute electrolyte abnormalities requiring intervention. Normal liver function. CK WNL, no concern for acute rhabdomyolysis. Urine without infection. Chest x-ray showing streaky opacities in bilateral lung bases with right greater than left, suggestive of atelectasis. No signs of pneumonia. X-ray of left hip with pelvis showing basicervical/ transcervical left femoral neck fracture with prominent varus angulation along with degenerative arthropathy of the bilateral femoral acetabular joints and lumbosacral spine. CT head without acute intracranial pathology. There are chronic white matter small-vessel ischemic changes. CT cervical spine evaluation limited secondary to patient's dyskinesia. There is no acute visible fracture dislocation, straightening of the normal cervical curvature along with multilevel degenerative changes noted. > I did reach out to orthopedic Jonah SKAGGS regarding xr results. After speaking to Dr. Roberson, the recommendation is for medical admission with plan for OR tomorrow. > I reached out to hospitalist Dr. Lai who has accepted admisison for left femoral neck fracture. Yana SKAGGS to place admission orders. Medications Administered Generic Name Dose Route Start Last Admin Trade Name Freq PRN Reason Stop Dose Admin Albuterol/Ipratropium 3 ml 01/20/24 20:00 01/21/24 08:19 Albuterol/Iprat 2.5/0.5mg 3 Ml Ampul.Neb INHALE 3 ml RBID DESHAUN Administration Amlodipine Besylate 10 mg 01/21/24 09:00 01/21/24 08:52 Amlodipine Besylate 10 Mg Tablet PO 10 mg DAILY DESHAUN Administration Protocol Aspirin 81 mg 01/21/24 09:00 01/21/24 08:59 Aspirin Enteric Coated 81 Mg Tablet.Dr PO Not Given DAILY DESHAUN Atorvastatin Calcium 10 mg 01/20/24 21:00 01/20/24 21:39 Atorvastatin Calcium 10 Mg Tablet PO 10 mg BEDTIME DESHAUN Administration Benztropine Mesylate 2 mg 01/20/24 21:00 01/21/24 09:02 Benztropine Mesylate 1 Mg Tablet PO 2 mg TID DESHAUN Administration Divalproex Sodium 1,500 mg 01/20/24 21:00 01/20/24 21:39 Divalproex Sodium Er 500 Mg Tab.Er.24h PO 1,500 mg BEDTIME DESHAUN Administration Docusate Sodium 100 mg 01/21/24 09:00 01/21/24 09:03 Docusate Sodium 100 Mg Capsule PO Not Given DAILY DESHAUN Fluoxetine HCl 20 mg 01/21/24 09:00 01/21/24 08:53 Fluoxetine Hcl 20 Mg Capsule PO 20 mg DAILY DESHAUN Administration Fluticasone/Umeclidinium/Vilanterol 1 puff 01/21/24 08:00 01/21/24 08:19 Fluticasone/Umeclidinium/Vilanterol 100/62.5/25 Blst.W.Dev INHALE 1 puff RDAILY DESHAUN Administration Gabapentin 600 mg 01/20/24 21:00 01/20/24 21:39 Gabapentin 600 Mg Tablet PO 600 mg BEDTIME DESHAUN Administration Gabapentin 300 mg 01/21/24 09:00 01/21/24 09:04 Gabapentin 300 Mg Capsule PO Not Given DAILY [facility] Insulin Glargine 7 unit 01/21/24 09:00 01/21/24 09:04 Insulin Glargine,Hum.Rec.Anlog 100 Unit/Ml 10 Ml Vial SUBCUT Not Given DAILY [facility] Insulin Human Lispro 0 unit 01/21/24 00:00 01/21/24 12:29 Insulin Lispro 100 Unit/Ml 3 Ml Vial SUBCUT Not Given Q6H [facility] Protocol Morphine Sulfate 2 mg 01/20/24 12:09 01/20/24 23:17 Morphine Sulfate 4 Mg/Ml Cartridge IVPUSH 2 mg Q4H PRN Administration Pain, Severe (Pain Scale 7-10) Protocol Olanzapine 10 mg 01/21/24 09:00 01/21/24 08:53 Olanzapine 10 Mg Tablet PO 10 mg DAILY DESHAUN Administration Olanzapine 20 mg 01/20/24 21:00 01/20/24 21:39 Olanzapine 10 Mg Tablet PO 20 mg BEDTIME DESHAUN Administration Omeprazole 20 mg 01/21/24 06:30 01/21/24 05:25 Omeprazole 20 Mg Capsule. PO 20 mg DAILY@0630 DESHAUN Administration Oxycodone HCl 5 mg 01/20/24 12:09 01/21/24 12:56 Oxycodone Hcl Immed Release 5 Mg Tablet PO 5 mg Q6H PRN Administration Pain, Moderate(Pain Scale 4-6) Propranolol HCl 20 mg 01/20/24 21:00 01/20/24 21:38 Propranolol Hcl 20 Mg Tablet PO 20 mg BEDTIME DESHAUN Administration Protocol Propranolol HCl 10 mg 01/21/24 09:00 01/21/24 08:52 Propranolol Hcl 10 Mg Tablet PO 10 mg DAILY [facility] Administration Protocol Sodium Chloride 3 ml 01/20/24 16:00 01/21/24 08:59 0.9 % Sodium Chloride Flush 3 Ml Syringe IVFLUSH 3 ml QSHIFT [facility] Administration Sodium Chloride 1 gm 01/20/24 21:00 01/21/24 09:04 Sodium Chloride Tab 1 Gm Tablet PO Not Given BID [facility] Vitamin D 50 mcg 01/21/24 09:00 01/21/24 09:03 Cholecalciferol (Vitamin D3) 25 Mcg Tablet PO Not Given DAILY [facility] Discontinued Medications Generic Name Dose Route Start Last Admin Trade Name Freq PRN Reason Stop Dose Admin Insulin Human Lispro 0 unit 01/20/24 16:30 01/20/24 21:16 Insulin Lispro 100 Unit/Ml 3 Ml Vial SUBCUT Not Given QIDACHS [facility] Protocol Ketorolac Tromethamine 30 mg 01/20/24 10:27 01/20/24 10:46 Ketorolac Tromethamine 30 Mg/Ml Vial IM 01/20/24 10:28 30 mg ONCE ONE Administration Medical Decision Making Medical Decision Making MDM Narrative: 69 year old male with pmhx significant for tardive dyskinesia, parkinsonism, dementia, schizophrenia, centrilobular emphysema, COPD, hypertension, HDL, type 2 diabetes with diabetic polyneuropathy presents to the ED today via EMS from [facility] for evaluation of left hip pain s/p mechanical fall this morning. VSS. Patient oriented to person however not place or time which is his baseline. On exam, left hip externally rotated. not noticeably shortened. No swelling, erythema, or ecchymosis. diffuse tenderness noted to left lower extremity extending from left hip to left knee. unable to flex at the left hip. NV intact distally. Differential diagnosis includes msk sprain/ strain, fracture, dislocation. Unlikely compartment syndrome, threat to limb, or neurovascular compromise. unlikely ICH, CVA/TIA, skull fracture, cauda equina, cord compression. Plan for labs, imaging, pain control, and re-evaluation. Differential Diagnosis Differential Diagnoses: The differential diagnosis associated with the presentation includes As above Admission/Observation Consideration of admission/observation: Escalation of care including admission/observation considered Patient to be admitted to medicine with plan for surgery tomorrow for left femoral neck fracture. Consult Healthcare Provider Management of the patient was discussed with: Hospitalist (Dr. Lai, Yana SKAGGS) and Application Developer (Danna Mckenzie, Dr. Roberson) Lab Data MDM Lab Attestation statement: I reviewed the patient's lab results. as above. 01/21/24 05:40 01/21/24 05:40 Labs: Lab Results 01/20/24 01/20/24 Range/Units 08:26 09:35 WBC 5.7 (4.8-10.8) X10*3/uL RBC 3.95 L (4.60-5.80) X10*6/uL Hgb 11.5 L (14.0-18.0) g/dl Hct 34.4 L (42.0-52.0) % MCV 87.1 (80.0-98.0) fL MCH 29.1 (27.0-33.0) pg MCHC 33.4 (31.0-36.0) g/dl RDW 16.1 H (11.0-16.0) % Plt Count 174 D (160-400) X10*3/uL MPV 10.2 (9.4-12.4) fL Immature Gran % (Auto) 0.3 (0.0-0.4) % Neut % (Auto) 51.8 (45-73) % Lymph % (Auto) 30.8 (20-40) % [place] % (Auto) 12.9 H (2-11) % Eos % (Auto) 3.7 (0-4) % Baso % (Auto) 0.5 (0-2) % Lymph # (Auto) 1.8 (1.2-4.9) X10*3/uL [place] # (Auto) 0.7 (0.1-1.2) X10*3/uL Eos # (Auto) 0.2 (0.0-0.4) X10*3/uL Baso # (Auto) 0.0 (0.0-0.2) X10*3/uL Abs Immat Gran (auto) 0.02 (0.00-0.03) X10*3/uL Absolute Neuts (auto) 3.0 (2.0-8.3) x10*3/uL Absolute Nucleated RBC 0.000 (0.0-0.012) X10*3/uL Nucleated RBC % (auto) 0.0 (0.0-0.2) /100WBC PT 11.8 (11.1-13.3) SEC INR 1.0 (0.9-1.1) APTT 31.2 (26.0-36.8) SEC Sodium 138 (135-145) mmol/L Potassium 4.1 (3.3-5.1) mmol/L Chloride 104 (96-108) mmol/L Carbon Dioxide 27 (22-29) mmol/L Anion Gap 11 L (12-20) BUN 25 H (9-16) mg/dL Creatinine 1.18 (0.5-1.4) mg/dL Estim Creat Clear Calc 60.6 Estimated GFR > 60 Random Glucose 89 (60-115) mg/dL Calcium 9.3 D (8.4-10.2) mg/dL Total Bilirubin 0.4 (0.0-1.0) mg/dL AST 30 (5-37) U/L ALT 16 (0-40) U/L Alkaline Phosphatase 49 (39-117) U/L Total Creatine Kinase 167 (38-174) U/L Total Protein 7.5 (6.5-8.0) g/dL Albumin 3.3 L (3.5-5.0) g/dL Urine Color Yellow Urine Appearance Clear Urine pH 6.0 (5.0-9.0) Ur Specific [place] 1.020 (1.005-1.025) Urine Protein Trace (Neg-Trace) mg/dL Urine Glucose (UA) Negative (Negative) mg/dL Urine Ketones 15 (Negative) mg/dL Urine Blood Negative (Negative) Urine Nitrite Negative (Negative) Ur Leukocyte Esterase Negative (Negative) Urine RBC 0-2 (0-2) /HPF Urine WBC 0-5 (0-5) /HPF Ur Squamous Epith Cells 0-2 (0-2) /HPF Urine Bacteria None Seen (None Seen) Hyaline Casts 0-2 (0-2) /LPF Independent Interpretation I performed an independent interpretation of an: Plain X-Ray and CT Scan Interpretation: EKG showing NSR with a rate of 72 bpm, no acute ischemic changes or st elevations. XR left hip showing femoral neck fracture, agree with radiologist's interpretation. CXR without consolidation or infiltrate, agree with radiologist's interpretation. CT head/brain without acute bleed, agree with radiologist's interpretation. CT c spine without acute fracture, agree with radiologist's interpretation. Radiology Impression Discussion of test interpretation with radiology: I have reviewed the radiologist's reading. Radiologist Impression: EXAMINATION: CT HEAD WITHOUT CONTRAST CLINICAL INFORMATION: Fall head strike COMPARISON: CT head from 01/07/2024 TECHNIQUE: Contiguous axial imaging was performed from the skull base to vertex without intravenous administration of contrast. This CT examination was performed using dose optimization techniques as appropriate, variously including the following: *Automated exposure control *Adjustment of mA and/or kV according to patient size (this includes techniques or standardized protocols for targeted exams where dose is matched to indication/reason for exam; i.e. extremities or head) *Use of iterative reconstruction technique DLP: 822.94 mGy-cm FINDINGS: There is no evidence of acute intracranial hemorrhage or territorial infarction. Chronic white matter small vessel ischemic changes. Cerebral atrophy with commensurate ventricular changes No abnormal mass effect or midline shift is seen. [place] to white matter differentiation is well preserved. No extra-axial fluid collections are identified. The ventricles are normal in size. There is no abnormal attenuation within the brain parenchyma. The osseous structures and soft tissues are normal. The mastoid air cells and visualized portions of the paranasal sinuses are well aerated. CT/CT head/brain wo IV con IMPRESSION: 1. No acute intracranial pathology. 2. Chronic white matter small vessel ischemic changes. EXAMINATION: Noncontrast CT scan of the cervical spine. INDICATION: Fall head strike COMPARISON: None. TECHNIQUE: Helical, multidetector axial images were obtained from the occiput to the upper thorax. Coronal and sagittal reformats of the cervical spine were provided for interpretation. DLP: 381 mGy-cm FINDINGS: Evaluation is severely limited secondary to patient motion artifact. Straightening the normal cervical curvature. Multilevel degenerative changes. No acute fractures or dislocations of the cervical spine are seen. Anatomic alignment and positioning of the vertebral bodies and posterior elements is noted. The atlantoaxial joint and craniovertebral articulations are normal without evidence of subluxation. There is no prevertebral soft tissue swelling. Hypodense focus right thyroid lobe measuring 9 mm. Additional peripherally calcified focus left thyroid lobe measuring 7 mm. Based on the recommendations of the ACR Incidental Thyroid Findings Committee (JACR 2014; 12(2):143-50), no imaging followup is recommended for incidental thyroid nodules with largest axial dimension less than 1.5 cm in patients greater than 35 years of age in the absence of high risk imaging features, symptomatic thyroid disease, or increased risk for thyroid cancer. Emphysematous changes of the visualized lung lin with biapical pleural parenchymal scarring. IMPRESSION: 1. Evaluation is severely limited secondary to patient motion artifact. 2. No acute visible fracture or dislocation. 3. Straightening the normal cervical curvature. 4. Multilevel degenerative changes. EXAMINATION: XR HIP, LEFT CLINICAL INFORMATION: Fall hip pain COMPARISON: None available. TECHNIQUE: 4 views of the left hip. FINDINGS: Basicervical/transcervical left femoral neck fracture with prominent varus angulation. Degenerative arthropathy of the bilateral femoral acetabular joints and lumbosacral spine. Joint spaces and alignment are otherwise maintained. Soft tissues are unremarkable. Pelvic limits are noted. Fecal loading the visualized colon. XR/XR hip LT w PEL1V IMPRESSION: 1. Basicervical/transcervical left femoral neck fracture with prominent varus angulation. 2. Degenerative arthropathy of the bilateral femoral acetabular joints and lumbosacral spine. EXAMINATION: XR CHEST CLINICAL INFORMATION: Fall COMPARISON: Chest radiograph from 11/25/2023 TECHNIQUE: Frontal view of the chest was obtained. FINDINGS: Stable elevation left hemidiaphragm. Streaky opacities in bilateral lung bases, right greater than left suggesting atelectasis. No pneumothorax. Trachea is midline. Cardiac mediastinal silhouette is not enlarged. No large pleural effusion. Osseous structures are intact. Soft tissues are unremarkable. XR/XR chest 1V IMPRESSION: 1. Stable elevation left hemidiaphragm. 2. Streaky opacities in bilateral lung bases, right greater than left suggesting atelectasis. Independent Historian Clinical information obtained from an independent historian. History obtained from or confirmed by: EMS and Other ([facility] staff) External Record Review External record reviewed: Inpatient record, Office record, Outpatient record, Prior outpatient labs, Prior outpatient radiology, Primary care record and Outside ED record Critical Care Time Critical Care Time Critical Care Time: Yes Total Critical Care Time: 34 Attestation: Critical care time in the amount of 34 minutes has been provided to the patient in terms of direct patient care, frequent reevaluation, consultation with orthopedics and hospitalist, review and interpretation of medical data and results, and management of potentially life-threatening conditions. This is all outside of any medical procedures. Discharge Plan Discharge Clinical Impression: Degenerative arthropathy Basicervical fracture of neck of left femur Qualifiers: Encounter type: initial encounter Fracture type: closed Fracture alignment: nondisplaced Qualified Code(s): S72.045A - Nondisplaced fracture of base of neck of left femur, initial encounter for closed fracture Patient Disposition: Admitted As Inpatient Interventions: Admission Worksheet (ED) Last Done: 01/20/24 18:18 Discharge Date/Time: 01/20/24 19:10
[2024-01-20 08:35] LABS: Basophils Percent Auto 0.5 % (0-2); Eosinophils Absolute Auto 0.2 X10*3/uL (0.0-0.4); Eosinophils Percent Auto 3.7 % (0-4); Hematocrit 34.4 % (42.0-52.0); Hemoglobin 11.5 g/dl (14.0-18.0); Imm Gran Abs Auto 0.02 X10*3/uL (0.00-0.03); Imm Gran Pct Auto 0.3 % (0.0-0.4); Lymphocytes Absolute Auto 1.8 X10*3/uL (1.2-4.9); Lymphocytes Percent Auto 30.8 % (20-40); Mean Corpuscular HGB Conc 33.4 g/dl (31.0-36.0); Mean Corpuscular Hemoglobin 29.1 pg (27.0-33.0); Mean Corpuscular Volume 87.1 fL (80.0-98.0); Mean Platelet Volume 10.2 fL (9.4-12.4); Monocytes Absolute Auto 0.7 X10*3/uL (0.1-1.2); Monocytes Percent Auto 12.9 % (2-11); Neutrophils Percent Auto 51.8 % (45-73); Platelet Count 174 X10*3/uL (160-400); Red Blood Count 3.95 X10*6/uL (4.60-5.80); Red Cell Distribution Width 16.1 % (11.0-16.0); White Blood Count 5.7 X10*3/uL (4.8-10.8)
[2024-01-20 08:36] LABS: Prothrombin Time 11.8 SEC (11.1-13.3)
[2024-01-20 08:38] LABS: Partial Thromboplastin Time 31.2 SEC (26.0-36.8)
[2024-01-20 08:51] LABS: Alanine Aminotransferase 16 U/L (0-40); Albumin Level 3.3 g/dL (3.5-5.0); Alkaline Phosphatase 49 U/L (39-117); Anion Gap 11 (12-20); Aspartate Amino Transferase 30 U/L (5-37); Bilirubin Total 0.4 mg/dL (0.0-1.0); Blood Urea Nitrogen 25 mg/dL (9-16); Calcium 9.3 mg/dL (8.4-10.2); Carbon Dioxide 27 mmol/L (22-29); Chloride 104 mmol/L (96-108); Creatinine Clr Calc Pharmacy 60.6; Estimated Glomerular Filt Rate > 60; Glucose Random 89 mg/dL (60-115); Potassium 4.1 mmol/L (3.3-5.1); Sodium 138 mmol/L (135-145); Total Protein 7.5 g/dL (6.5-8.0)
--- NOTE | 2024-01-20 08:53 | PC.NURSE ---
UA obtained/sent to lab. pt to xray at this time.
[2024-01-20 09:45] LABS: Appearance Urine Clear; Color Urine Yellow; Glucose Urine UA Negative (Negative); Leukocyte Esterase Urine Negative (Negative); Nitrite Urine Negative (Negative); Urine Blood Negative (Negative); Urine Ketones 15 mg/dL (Negative); Urine Protein Trace mg/dL (Neg-Trace)
[2024-01-20 09:56] LABS: Bacteria Urine None Seen (None Seen); Hyaline Casts Urine 0-2 /LPF (0-2); RBC Urine 0-2 /HPF (0-2); Squamous Epithelial Cell Urine 0-2 /HPF (0-2); WBC Urine 0-5 /HPF (0-5)
[2024-01-20] MEDS: Ketorolac Tromethamine 30 MG/ML VIAL IM (10:46)
--- NOTE | 2024-01-20 10:46 | PC.NURSE ---
pt c/o pain in left hip - medication administered per provider order. effectiveness pending.
--- NOTE | 2024-01-20 11:51 | PC.NURSE ---
pt seen by hospitalist/aware of scan results/plan of care moving forward.
--- NOTE | 2024-01-20 12:07 | PM.CNOR ---
History of Present Illness HPI Consult date: 01/20/24 Chief complaint: L hip fracture, ?mechanical fall Narrative: Patient is a 69-year-old male who presents to the emergency department from his senior living after falling out of bed, per history obtained by the ED. The patient reports pain in his left lower extremity, primarily in his left hip. The patient also reports pain radiating down to his knee in the LLE. Patient is ambulatory at baseline, with an uneven gait. Patient has dementia at baseline, and is unable to provide a thorough history. Patient will be admitted to Medicine. Patient's daughter is his healthcare proxy, and was not available at the time I saw the patient. Patient is Faroese-speaking only, and required interpretation services for interview. Review of Systems Review of Systems: Yes all other systems are reviewed and are negative [facility] Past Medical History Medical History Tardive dyskinesia Parkinsonism Lives in senior living Chronic bronchitis Schizophrenia Centrilobular emphysema Essential hypertension Hyperlipidemia LDL goal <70 COPD (chronic obstructive pulmonary disease) Smoker Type 2 diabetes mellitus with diabetic polyneuropathy Multiple pulmonary nodules Family History Family History Father Prostate cancer Diabetes Mother Diabetes Hypertension CVD (cardiovascular disease) Surgical History Surgical History No pertinent past surgical history Social History Social History Household Members: Other Housing: Other Housing Other:: [facility] Do you presently have visiting nurse or other home services: Yes Unable to assess alcohol history related to: Refusing to respond Alcohol intake: unknown Patient Tobacco Use Status: Current everyday Tobacco user Tobacco use type: Cigarette Cigarette Packs Per Day: 4 Cigarettes Per Day: 80 Years Smoked: 40 Smoked in Last 30 Days: No Use of substances other than those prescribed or required for medical reasons: No Advance Directives: Yes Advance Directives on File: Yes Advance Directives Date on File: 10/25/22 service: No Current occupational status: disabled Cognitive needs: No Hearing needs: No Vision needs: No Meds Allergies Allergy/AdvReac Type Severity Reaction Status Date / Time No Known Allergies Allergy Mild NOT Verified 01/20/24 08:12 APPLICABLE Active Medications: Current Medications Cefazolin Sodium/Dextrose (Ancef) 2 gm in 50 mls @ 100 mls/hr IV PREOP ONE Stop: 01/21/24 05:38 Home Medications ?Medication ?Instructions ?Recorded ?Confirmed ?Last Taken ?Type divalproex 500 mg tablet,extended 1,500 mg PO BEDTIME 07/16/21 01/20/24 11/06/23 History release 24 hr vitamin E 1,150 unit/1.25 mL oral 1,000 unit PO DAILY 01/28/23 01/20/24 02/14/23 History liquid hydrocortisone 2.5 % topical cream 1 appl topical DAILY PRN 10/13/23 01/20/24 Unknown History immflamation nebulizers 10/13/23 12/25/23 Unknown History olanzapine 20 mg tablet 20 mg PO BEDTIME 10/13/23 01/20/24 Unknown History propranolol 10 mg tablet 10 mg PO DAILY 10/13/23 01/20/24 Unknown History propranolol 20 mg tablet 10 mg PO BEDTIME 10/13/23 01/20/24 Unknown History benztropine 2 mg tablet 2 mg PO TID 11/11/23 01/20/24 Unknown History gabapentin 300 mg capsule 300 mg PO DAILY 12/01/23 01/20/24 Unknown History olanzapine 10 mg tablet 10 mg PO DAILY 12/01/23 01/20/24 Unknown History albuterol sulfate 90 mcg/actuation 2 inh inhalation Q4H PRN shortness 01/20/24 01/20/24 Unknown History breath activated powder inhaler of breath or wheezing docusate sodium 100 mg capsule 100 mg PO DAILY constipation 01/20/24 01/20/24 Unknown History fluoxetine 20 mg capsule 20 mg PO DAILY 01/20/24 01/20/24 Unknown History gabapentin 600 mg tablet 600 mg PO BEDTIME 01/20/24 01/20/24 Unknown History omeprazole 20 mg capsule,delayed 20 mg PO DAILY@0630 01/20/24 01/20/24 Unknown History release Physical Exam Vital Signs: Vital Signs: Last Vital Signs Temp 97.8 F 01/20/24 10:48 Pulse 73 01/20/24 10:48 Resp 16 01/20/24 10:48 BP 153/77 H 01/20/24 10:48 Pulse Ox 96 01/20/24 10:48 O2 Del Method Room Air 01/20/24 10:48 BMI result Body Mass Index 21.7 Const: Other: Patient is alert, oriented, cooperative, and in no acute distress HEENT: Head: Yes normocephalic and Yes atraumatic Resp: Effort & Inspection: normal respiratory effort and able to speak in complete sentences Cardio: Jugular venous distension: no JVD Neuro: General: gait normal Cognition (Neuro): normal cognition Extrem: Other: On inspection, the patient's left hip is noted to be externally rotated, but not noticeably shortened. No prominent swelling, erythema, or ecchymosis. Patient reports diffuse tenderness in his left lower extremity, from the hip down to the knee. Patient reports that he is unable to flex at the left hip. NVI. Psych: Appearance: grossly normal Mental Status: mental status grossly normal Results Labs 01/20/24 08:26 01/20/24 08:26 Labs: Abnormal lab results 01/20/24 Range/Units 08:26 RBC 3.95 L (4.60-5.80) X10*6/uL Hgb 11.5 L (14.0-18.0) g/dl Hct 34.4 L (42.0-52.0) % RDW 16.1 H (11.0-16.0) % [place] % (Auto) 12.9 H (2-11) % Anion Gap 11 L (12-20) BUN 25 H (9-16) mg/dL Albumin 3.3 L (3.5-5.0) g/dL H & H 01/20/24 Range/Units 08:26 Hgb 11.5 L (14.0-18.0) g/dl Hct 34.4 L (42.0-52.0) % Coagulation 01/20/24 Range/Units 08:26 INR 1.0 (0.9-1.1) All other labs normal. Diagnostic results Hip x-ray: report reviewed and image reviewed (X-rays obtained in the ED today and independently reviewed by me, Jonah [place] PA-C, demonstrate left femoral neck fracture with varus angulation. ) Assessment and Plan (1) Fracture of femoral neck, left, closed: Qualifiers: Encounter type: initial encounter Qualified Code(s): S72.002A - Fracture of unspecified part of neck of left femur, initial encounter for closed fracture Status: Acute Plan At this time, patient will be admitted the medicine service. Plan is to bring the patient to the operating room tomorrow for left hip hemiarthroplasty with Dr. Roberson. Patient NPO at midnight. We will speak with the patient's daughter, who is his healthcare proxy, when she is available to discuss this plan, and to clear up any questions that she may have. Procedures Date of Service Date of Service: 01/20/24
--- NOTE | 2024-01-20 12:14 | P.HPHOSP_ITS ---
History of Present Illness Date of Service: 01/20/24 Attending physician on admission: [facility] Chief Complaint: fall 69-year-old male with history of parkinsonism, CKD stage 3, tardive dyskinesia, schizophrenia, type 2 diabetes, diabetic polyneuropathy, hypertension, hyperlipidemia, coronary artery disease, and COPD [facility] an unwitnessed fall. retirement staff member, Gayla, reports that the patient got out of bed and was coming to get his medications when he sustained fall that was unwitnessed. However, staff did hear the fall and called EMS for further assistance. Per Gayla, patient is disoriented at baseline and provides limited history. No known history of arrhythmia. He has been progressively unsteady on his feet and ambulates with a walker at baseline. On arrival to the ED, vital signs are stable. He has a chronic normocytic anemia with H/H 11.5/34.4%. Renal function baseline, electrolyte levels normal. Urinalysis negative. Head CT negative for acute intracranial abnormality and CT of the cervical spine is negative for any acute osseous abnormality but shows multilevel degenerative changes. Chest x-ray shows bilateral lower lobe atelectasis, otherwise unremarkable. There is no leukocytosis. X-ray of the left hip/pelvis shows basicervical/transcervical left femoral neck fracture with prominent varus angulation and degenerative arthropathy of the bilateral femoral acetabular joints and lumbosacral spine. Since arrival to the ED, has been given 30 mg IV ketorolac. Review of Systems 2 Review of Systems: Yes Unobtainable due to mental status [facility] Medical History Tardive dyskinesia Parkinsonism Lives in penitentiary Chronic bronchitis Schizophrenia Centrilobular emphysema Essential hypertension Hyperlipidemia LDL goal <70 COPD (chronic obstructive pulmonary disease) Smoker Type 2 diabetes mellitus with diabetic polyneuropathy Multiple pulmonary nodules Family History Father Prostate cancer Diabetes Mother Diabetes Hypertension CVD (cardiovascular disease) Surgical History No pertinent past surgical history Social History Household Members: Other Housing: Other Housing Other:: retirement Do you presently have visiting nurse or other home services: Yes Unable to assess alcohol history related to: Refusing to respond Alcohol intake: unknown Patient Tobacco Use Status: Current everyday Tobacco user Tobacco use type: Cigarette Cigarette Packs Per Day: 4 Cigarettes Per Day: 80 Years Smoked: 40 Smoked in Last 30 Days: No Use of substances other than those prescribed or required for medical reasons: No Advance Directives: Yes Advance Directives on File: Yes Advance Directives Date on File: 10/25/22 Nutrition Risks: No Nutritional Risk service: No Current occupational status: disabled Cognitive needs: No Hearing needs: No Vision needs: No Meds Allergies Allergy/AdvReac Type Severity Reaction Status Date / Time No Known Allergies Allergy Mild NOT Verified 01/20/24 08:12 APPLICABLE Active Medications: Current Medications Cefazolin Sodium/Dextrose (Ancef) 2 gm in 50 mls @ 100 mls/hr IV PREOP ONE Stop: 01/21/24 05:38 Home Medications ?Medication ?Instructions ?Recorded ?Confirmed ?Last Taken ?Type divalproex 500 mg tablet,extended 1,500 mg PO BEDTIME 07/16/21 01/20/24 11/06/23 History release 24 hr vitamin E 1,150 unit/1.25 mL oral 1,000 unit PO DAILY 01/28/23 01/20/24 02/14/23 History liquid hydrocortisone 2.5 % topical cream 1 appl topical DAILY PRN 10/13/23 01/20/24 Unknown History immflamation nebulizers 10/13/23 12/25/23 Unknown History olanzapine 20 mg tablet 20 mg PO BEDTIME 10/13/23 01/20/24 Unknown History propranolol 10 mg tablet 10 mg PO DAILY 10/13/23 01/20/24 Unknown History propranolol 20 mg tablet 20 mg PO BEDTIME 10/13/23 01/20/24 Unknown History benztropine 2 mg tablet 2 mg PO TID 11/11/23 01/20/24 Unknown History gabapentin 300 mg capsule 300 mg PO DAILY 12/01/23 01/20/24 Unknown History olanzapine 10 mg tablet 10 mg PO DAILY 12/01/23 01/20/24 Unknown History albuterol sulfate 90 mcg/actuation 2 inh inhalation Q4H PRN shortness 01/20/24 01/20/24 Unknown History breath activated powder inhaler of breath or wheezing docusate sodium 100 mg capsule 100 mg PO DAILY constipation 01/20/24 01/20/24 Unknown History fluoxetine 20 mg capsule 20 mg PO DAILY 01/20/24 01/20/24 Unknown History gabapentin 600 mg tablet 600 mg PO BEDTIME 01/20/24 01/20/24 Unknown History omeprazole 20 mg capsule,delayed 20 mg PO DAILY@0630 01/20/24 01/20/24 Unknown History release Physical Exam 2 Vital Signs and Narrative: Vital Signs: Last Vital Signs Temp 97.8 F 01/20/24 10:48 Pulse 73 01/20/24 10:48 Resp 16 01/20/24 10:48 BP 153/77 H 01/20/24 10:48 Pulse Ox 96 01/20/24 10:48 O2 Del Method Room Air 01/20/24 10:48 BMI result Body Mass Index 21.7 Constitutional - Awake and Alert, No apparent distress Eyes - PERRLA, EOMI Cardiovascular - S1S2, RRR, No edema Respiratory - Normal lung expansion, Normal respiratory effort, No respiratory distress, CTA bilaterally Gastrointestinal - NT / ND; +BS; No rebound or guarding Extremities - no calf tenderness bilaterally, no swelling Musculoskeletal - LLE externally rotated Skin - Warm/Dry Neurological - Alert & oriented x2, unable to give details about his fall Psychological - Appropriate affect Results Labs 01/20/24 08:26 01/20/24 08:26 Labs: Laboratory Results - last 24 hr 01/20/24 01/20/24 08:26 09:35 MCV 87.1 MCH 29.1 MCHC 33.4 RDW 16.1 H Plt Count 174 D MPV 10.2 Immature Gran % (Auto) 0.3 Neut % (Auto) 51.8 Lymph % (Auto) 30.8 [place] % (Auto) 12.9 H Eos % (Auto) 3.7 Baso % (Auto) 0.5 Lymph # (Auto) 1.8 [place] # (Auto) 0.7 Eos # (Auto) 0.2 Baso # (Auto) 0.0 Abs Immat Gran (auto) 0.02 Absolute Neuts (auto) 3.0 Absolute Nucleated RBC 0.000 Nucleated RBC % (auto) 0.0 PT 11.8 INR 1.0 APTT 31.2 Anion Gap 11 L Estim Creat Clear Calc 60.6 Estimated GFR > 60 Random Glucose 89 Calcium 9.3 D Total Bilirubin 0.4 AST 30 ALT 16 Alkaline Phosphatase 49 Total Creatine Kinase 167 Total Protein 7.5 Albumin 3.3 L Urine Color Yellow Urine Appearance Clear Urine pH 6.0 Ur Specific [place] 1.020 Urine Protein Trace Urine Glucose (UA) Negative Urine Ketones 15 Urine Blood Negative Urine Nitrite Negative Ur Leukocyte Esterase Negative Urine RBC 0-2 Urine WBC 0-5 Ur Squamous Epith Cells 0-2 Urine Bacteria None Seen Hyaline Casts 0-2 Imaging Radiologist's Impressions: Impressions Chest X-Ray 01/20/24 09:21 IMPRESSION: 1. Stable elevation left hemidiaphragm. 2. Streaky opacities in bilateral lung bases, right greater than left suggesting atelectasis. Hip/Pelvis X-Ray 01/20/24 09:21 IMPRESSION: 1. Basicervical/transcervical left femoral neck fracture with prominent varus angulation. 2. Degenerative arthropathy of the bilateral femoral acetabular joints and lumbosacral spine. Cervical Spine CT 01/20/24 09:30 IMPRESSION: 1. No acute intracranial pathology. 2. Chronic white matter small vessel ischemic changes. EXAMINATION: Noncontrast CT scan of the cervical spine. INDICATION: Fall head strike COMPARISON: None. TECHNIQUE: Helical, multidetector axial images were obtained from the occiput to the upper thorax. Coronal and sagittal reformats of the cervical spine were provided for interpretation. DLP: 381 mGy-cm FINDINGS: Evaluation is severely limited secondary to patient motion artifact. Straightening the normal cervical curvature. Multilevel degenerative changes. No acute fractures or dislocations of the cervical spine are seen. Anatomic alignment and positioning of the vertebral bodies and posterior elements is noted. The atlantoaxial joint and craniovertebral articulations are normal without evidence of subluxation. There is no prevertebral soft tissue swelling. Hypodense focus right thyroid lobe measuring 9 mm. Additional peripherally calcified focus left thyroid lobe measuring 7 mm. Based on the recommendations of the ACR Incidental Thyroid Findings Committee (JACR 2014; 12(2):143-50), no imaging followup is recommended for incidental thyroid nodules with largest axial dimension less than 1.5 cm in patients greater than 35 years of age in the absence of high risk imaging features, symptomatic thyroid disease, or increased risk for thyroid cancer. Emphysematous changes of the visualized lung lin with biapical pleural parenchymal scarring. IMPRESSION: 1. Evaluation is severely limited secondary to patient motion artifact. 2. No acute visible fracture or dislocation. 3. Straightening the normal cervical curvature. 4. Multilevel degenerative changes. Head CT 01/20/24 09:30 IMPRESSION: 1. No acute intracranial pathology. 2. Chronic white matter small vessel ischemic changes. EXAMINATION: Noncontrast CT scan of the cervical spine. INDICATION: Fall head strike COMPARISON: None. TECHNIQUE: Helical, multidetector axial images were obtained from the occiput to the upper thorax. Coronal and sagittal reformats of the cervical spine were provided for interpretation. DLP: 381 mGy-cm FINDINGS: Evaluation is severely limited secondary to patient motion artifact. Straightening the normal cervical curvature. Multilevel degenerative changes. No acute fractures or dislocations of the cervical spine are seen. Anatomic alignment and positioning of the vertebral bodies and posterior elements is noted. The atlantoaxial joint and craniovertebral articulations are normal without evidence of subluxation. There is no prevertebral soft tissue swelling. Hypodense focus right thyroid lobe measuring 9 mm. Additional peripherally calcified focus left thyroid lobe measuring 7 mm. Based on the recommendations of the ACR Incidental Thyroid Findings Committee (JACR 2015 Sep; 12(2):143-50), no imaging followup is recommended for incidental thyroid nodules with largest axial dimension less than 1.5 cm in patients greater than 35 years of age in the absence of high risk imaging features, symptomatic thyroid disease, or increased risk for thyroid cancer. Emphysematous changes of the visualized lung lin with biapical pleural parenchymal scarring. IMPRESSION: 1. Evaluation is severely limited secondary to patient motion artifact. 2. No acute visible fracture or dislocation. 3. Straightening the normal cervical curvature. 4. Multilevel degenerative changes. Assessment and Plan (1) Fracture of femoral neck, left, closed: Qualifiers: Encounter type: initial encounter Qualified Code(s): S72.002A - Fracture of unspecified part of neck of left femur, initial encounter for closed fracture Status: Acute Plan 69-year-old male with history of parkinsonism, CKD stage 3, tardive dyskinesia, schizophrenia, type 2 diabetes, diabetic polyneuropathy, hypertension, hyperlipidemia, coronary artery disease, and COPD admitted for further management of L hip fracture #L hip fracture -plan per ortho surgery. Pt is a class II risk on revised cardiac risk index. Given urgent/emergent nature of surgery, would recommend proceeding with surgical procedure -plan for surgical repair tomorrow, keep NPO after midnight -pain management prn -bedrest, pt recs per ortho surgery -hold asa. PLT acceptable range >170K #CKD stage 3 -renal function baseline #Type 2 diabetes -dose adjusted basal insulin -POC glucose, diabetic diet. NPO after midnight -Humalog on sliding scale # diabetic polyneuropathy -continue gabapentin # COPD -no exacerbation, continue home inhalers, albuterol p.r.n. # CAD/HLD -hold ASA. Continue statin, beta-murtaza #Parkinsonism -no meds #Unspecified cognitive impairment with mood disorder -continue home meds dvt prophylaxis- SCPs, addition of blood thinners per orthopedic surgery Full code HCP- Halley Daviscel [phone], Pt requires inpt stay at least 2 midnight for management of Left hip fracutre in patient who was previously ambulatory requiring urgent/emergent surgical repair following expert consulation. Quality Stroke Does the patient have a stroke diagnosis?: No VTE Prior VTE?: No VTE Risk Level:: Medical - moderate - high VTE Device Contraindication: N/A - Device Ordered VTE Drug Contraindication: Treatment Not Indicated
--- NOTE | 2024-01-20 12:42 | PHA.MEDREC ---
Pharmacy Consult ? Medication Reconciliation Pharmacy has completed the medication reconciliation. Confirmed med rec with list provided by [facility]. Called them to verify Trulicity and Fluoxitine after I noticed we had claims for those but not on the list. I called and verified if they should be on them and the lady at the home said they should be injecting Trulicity 0.75 mg once weekly every Friday morning. She also confirmed that the patient is taking Fluoxitine 20mg once daily. She also noticed the patient is also on Tresiba 100mg and looking in pharmacy claims there was no records found but I did add it to the list and they are injecting 10 units daily.
[2024-01-20 13:21] LABS: Glucose, Whole Blood 74 mg/dL (60-115)
--- NOTE | 2024-01-20 15:36 | ECG_ITS ---
Test Reason : REPEAT EKG Blood Pressure : / mmHG Vent. Rate : 071 BPM Atrial Rate : 071 BPM P-R Int : 158 ms QRS Dur : 100 ms QT Int : 394 ms P-R-T Axes : 080 017 -19 degrees QTc Int : 428 ms Normal sinus rhythm Normal ECG When compared with ECG of 20-JAN-2024 08:27, No significant change was found Referred By: Ada Wren Electronically Signed By:Darin Taylor
[2024-01-20] MEDS: Morphine Sulfate 4 MG/ML CARTRIDGE 2 MG IVPUSH ×2 (16:19→23:17)
--- NOTE | 2024-01-20 16:20 | PC.NURSE ---
pt verbalizing increase in left hip pain - prn medication utilized. effectiveness pending.
[2024-01-20 18:14] LABS: Glucose, Whole Blood 102 mg/dL (60-115)
--- NOTE | 2024-01-20 18:23 | PC.NURSE ---
admission worksheet complete. transport notified/aware at this time.
--- NOTE | 2024-01-20 19:10 | PC.NURSE ---
pt being transported upstairs at this time.
[2024-01-20] MEDS: Albuterol/Iprat 2.5/0.5MG 3 ML AMPUL.NEB INHALE (20:27)
[2024-01-20] MEDS: Propranolol HCL 20 MG TABLET PO (21:38)
[2024-01-20] MEDS: Sodium Chloride Tab 1 GM TABLET PO (21:38)
[2024-01-20] MEDS: Gabapentin 600 MG TABLET PO (21:39)
[2024-01-20] MEDS: OLANZapine 10 MG TABLET 20 MG PO (21:39)
[2024-01-20] MEDS: Benztropine Mesylate 1 MG TABLET 2 MG PO (21:39)
[2024-01-20] MEDS: Divalproex Sodium ER 500 MG TAB.ER.24H 1500 MG PO (21:39)
[2024-01-20] MEDS: Atorvastatin Calcium 10 MG TABLET PO (21:39)
[2024-01-20] MEDS: 0.9 % Sodium Chloride Flush 3 ML SYRINGE IVFLUSH (21:40)
[2024-01-20 23:29] LABS: Glucose, Whole Blood 148 mg/dL (60-115)
[2024-01-21] VITALS (12 sets, daily range): BP systolic 139–163; BP diastolic 61–83; PULSE 74–83; RESP 16–20; TEMP 36.1–37.1; O2SAT 94–100
[2024-01-21] MEDS: oxyCODONE HCl Immed Release 5 MG TABLET PO ×2 (03:17→12:56)
[2024-01-21] MEDS: Omeprazole 20 MG CAPSULE.DR PO (05:25)
--- NOTE | 2024-01-21 05:51 | PC.NURSE ---
Patient admitted to S3 from ED via stretcher at 19:30. Seen this admission from long term after an unwitnessed fall resulting in left femoral neck fracture. Per review of chart/communication with long term, the patient is disoriented at baseline. For law writer patient is A&Ox1-2 to self and hospital though states we are at [facility]. Pt speaks primarily Albanian and an head track coach was used at the bedside during care. Patient forgetful and impulsive overnight, frequently pulling off cardiac monitoring, attempting to remove [place] catheter placed for incontinence/skin protection despite in-room camera placed earlier in the evening. Covering Dr. Case and nursing ski production supervisor notified; constant admitting officer ordered by MD and placed at bedside to assist with redirecting and maintaining safety. +Effect. NSR 80-90's on tele. +radial and dp pulses, +cms. -edema. Bruise noted to left lateral thigh is soft to palpation. +Pain indicated in left left with repositioning and care; pt medicated as ordered and appropriate. Patient has been NPO with okay for pills since midnight as ordered for tentative OR with ortho later today 01/20; previous diet was diabetic. MD notified and POC orders adjusted to q6hr. Patient does not have any teeth and no dentures are present in patient belongings. MD advised and diet modifications (? dental soft) requested by law writer. LSCTA on RA, breathing is even and unlabored without distress. Q2h repositioning and foam placed to coccyx for blanchable redness. Bed alarm on and safety measures in place. Please see assessments and tasks for full details.
[2024-01-21 06:05] LABS: Glucose, Whole Blood 104 mg/dL (60-115)
[2024-01-21 06:11] LABS: MANUAL DIFF FLAG NO
[2024-01-21 06:17] LABS: Basophils Percent Auto 0.4 % (0-2); Eosinophils Absolute Auto 0.1 X10*3/uL (0.0-0.4); Eosinophils Percent Auto 1.2 % (0-4); Hematocrit 32.1 % (42.0-52.0); Imm Gran Abs Auto 0.04 X10*3/uL (0.00-0.03); Imm Gran Pct Auto 0.5 % (0.0-0.4); Lymphocytes Absolute Auto 0.8 X10*3/uL (1.2-4.9); Lymphocytes Percent Auto 8.8 % (20-40); Mean Corpuscular HGB Conc 34.3 g/dl (31.0-36.0); Mean Corpuscular Hemoglobin 29.2 pg (27.0-33.0); Mean Corpuscular Volume 85.1 fL (80.0-98.0); Mean Platelet Volume 11.1 fL (9.4-12.4); Monocytes Absolute Auto 1.1 X10*3/uL (0.1-1.2); Monocytes Percent Auto 12.9 % (2-11); Neutrophils Absolute Auto 6.5 x10*3/uL (2.0-8.3); Neutrophils Percent Auto 76.2 % (45-73); Platelet Count 143 X10*3/uL (160-400); Red Blood Count 3.77 X10*6/uL (4.60-5.80); Red Cell Distribution Width 16.3 % (11.0-16.0); White Blood Count 8.5 X10*3/uL (4.8-10.8)
[2024-01-21 06:30] LABS: Anion Gap 10 (12-20); Blood Urea Nitrogen 22 mg/dL (9-16); Carbon Dioxide 25 mmol/L (22-29); Chloride 105 mmol/L (96-108); Creatinine Clr Calc Pharmacy 71.1; Estimated Glomerular Filt Rate > 60; Glucose Random 112 mg/dL (60-115); Sodium 136 mmol/L (135-145)
--- NOTE | 2024-01-21 07:19 | HO.PM.IMPN ---
Subjective Subjective Date of Service: 01/22/24 Interval History: f/u on hip fracture from mechancial fall pain is controlled. Physical Exam Vital Signs: Vital Signs: Last Vital Signs Temp 97.5 F 01/21/24 03:01 Pulse 83 01/21/24 03:01 Resp 18 01/21/24 03:01 BP 142/79 H 01/21/24 03:01 Pulse Ox 94 01/21/24 03:01 O2 Del Method Room Air 01/21/24 03:01 BMI result Body Mass Index 20.9 Constitutional - Awake and Alert, No apparent distress Cardiovascular - S1S2, RRR, No edema Respiratory - Normal lung expansion, Normal respiratory effort, No respiratory distress, CTA bilaterally Gastrointestinal - NT / ND; +BS; No rebound or guarding Extremities - no calf tenderness bilaterally, no swelling Musculoskeletal - LLE externally rotated Skin - Warm/Dry Neurological - Alert & oriented x2, unable to give details about his fall Psychological - Appropriate affect Objective Data Active Medications Acetaminophen (Acetaminophen 325 Mg Tablet) 650 mg PO Q6H PRN PRN Reason: Pain, Mild (Pain Scale 1-3), fever or headache Albuterol Sulfate (Albuterol Sulfate 90 Mcg 8 Gm Inhaler) 2 puff INHALE Q4H PRN PRN Reason: shortness of breath or wheezing Albuterol/Ipratropium (Albuterol/Iprat 2.5/0.5mg 3 Ml Ampul.Neb) 3 ml INHALE RBID [facility] Last Admin: 01/20/24 20:27 Dose: 3 ml Documented By: SONG Amlodipine Besylate (Amlodipine Besylate 10 Mg Tablet) 10 mg PO DAILY [facility]; Protocol Aspirin (Aspirin Enteric Coated 81 Mg Tablet.Dr) 81 mg PO DAILY [facility] Atorvastatin Calcium (Atorvastatin Calcium 10 Mg Tablet) 10 mg PO BEDTIME [facility] Last Admin: 01/20/24 21:39 Dose: 10 mg Documented By: LEYDA Benztropine Mesylate (Benztropine Mesylate 1 Mg Tablet) 2 mg PO TID [facility] Last Admin: 01/20/24 21:39 Dose: 2 mg Documented By: LEYDA Calcium Carbonate (Calcium Carbonate 750 Mg Tab.Chew) 750 mg PO Q4H PRN PRN Reason: Heartburn Divalproex Sodium (Divalproex Sodium Er 500 Mg Tab.Er.24h) 1,500 mg PO BEDTIME [facility] Last Admin: 01/20/24 21:39 Dose: 1,500 mg Documented By: LEYDA Docusate Sodium (Docusate Sodium 100 Mg Capsule) 100 mg PO DAILY [facility] Fluoxetine HCl (Fluoxetine Hcl 20 Mg Capsule) 20 mg PO DAILY [facility] Fluticasone/Umeclidinium/Vilanterol (Fluticasone/Umeclidinium/Vilanterol 100/62.5/25 Blst.W.Dev) 1 puff INHALE RDAILY [facility] Gabapentin (Gabapentin 600 Mg Tablet) 600 mg PO BEDTIME [facility] Last Admin: 01/20/24 21:39 Dose: 600 mg Documented By: LEYDA Gabapentin (Gabapentin 300 Mg Capsule) 300 mg PO DAILY [facility] Glucose (Glucose Gel 15 Gm Gel..Gram.) 15 gm PO Q15M PRN; Protocol PRN Reason: per Hypoglycemia Standing Ord. Hydrocortisone (Hydrocortisone 1 % Cream 28.35 Gm Tube) 1 appl TOPICAL DAILY PRN PRN Reason: immflamation Dextrose (D10) 250 mls @ 750 mls/hr IV Q15M PRN; Protocol PRN Reason: per Hypoglycemia Standing Ord. Insulin Glargine (Insulin Glargine,Hum.Rec.Anlog 100 Unit/Ml 10 Ml Vial) 7 unit SUBCUT DAILY [facility] Insulin Human Lispro (Insulin Lispro 100 Unit/Ml 3 Ml Vial) 0 unit SUBCUT Q6H [facility]; Protocol Last Admin: 01/21/24 06:02 Dose: Not Given Documented By: LEYDA Non-Admin Reason: NPO Magnesium Hydroxide (Milk Of Magnesia 30 Ml Oral.Susp) 30 ml PO DAILY PRN PRN Reason: Constipation Morphine Sulfate (Morphine Sulfate 4 Mg/Ml Cartridge) 2 mg IVPUSH Q4H PRN; Protocol PRN Reason: Pain, Severe (Pain Scale 7-10) Last Admin: 01/20/24 23:17 Dose: 2 mg Documented By: LEYDA Non-Formulary Medication (Dulaglutide [Trulicity]) 0.75 mg SUBCUT FR@0900 [facility] Olanzapine (Olanzapine 10 Mg Tablet) 10 mg PO DAILY [facility] Olanzapine (Olanzapine 10 Mg Tablet) 20 mg PO BEDTIME [facility] Last Admin: 01/20/24 21:39 Dose: 20 mg Documented By: LEYDA Omeprazole (Omeprazole 20 Mg Capsule.) 20 mg PO DAILY@0630 [facility] Last Admin: 01/21/24 05:25 Dose: 20 mg Documented By: LEYDA Ondansetron HCl (Ondansetron Hcl 4 Mg/2 Ml Vial) 4 mg IVPUSH Q8H PRN PRN Reason: Nausea and Vomiting Oxycodone HCl (Oxycodone Hcl Immed Release 5 Mg Tablet) 5 mg PO Q6H PRN PRN Reason: Pain, Moderate(Pain Scale 4-6) Last Admin: 01/21/24 03:17 Dose: 5 mg Documented By: LEYDA Propranolol HCl (Propranolol Hcl 20 Mg Tablet) 20 mg PO BEDTIME [facility]; Protocol Last Admin: 01/20/24 21:38 Dose: 20 mg Documented By: LEYDA Propranolol HCl (Propranolol Hcl 10 Mg Tablet) 10 mg PO DAILY [facility]; Protocol Senna (Sennosides 8.6 Mg Tablet) 17.2 mg PO DAILY PRN PRN Reason: constipation Sodium Chloride (0.9 % Sodium Chloride Flush 3 Ml Syringe) 3 ml IVFLUSH QSHIFT [facility] Last Admin: 01/20/24 21:40 Dose: 3 ml Documented By: LEYDA Sodium Chloride (Sodium Chloride Tab 1 Gm Tablet) 1 gm PO BID [facility] Last Admin: 01/20/24 21:38 Dose: 1 gm Documented By: LEYDA Vitamin D (Cholecalciferol (Vitamin D3) 25 Mcg Tablet) 50 mcg PO DAILY [facility] Labs 01/22/24 09:48 01/21/24 05:40 Labs: Laboratory Results - last 24 hr 01/20/24 01/20/24 01/20/24 08:26 09:35 13:18 MCV 87.1 MCH 29.1 MCHC 33.4 RDW 16.1 H Plt Count 174 D MPV 10.2 Immature Gran % (Auto) 0.3 Neut % (Auto) 51.8 Lymph % (Auto) 30.8 [place] % (Auto) 12.9 H Eos % (Auto) 3.7 Baso % (Auto) 0.5 Lymph # (Auto) 1.8 [place] # (Auto) 0.7 Eos # (Auto) 0.2 Baso # (Auto) 0.0 Abs Immat Gran (auto) 0.02 Absolute Neuts (auto) 3.0 Absolute Nucleated RBC 0.000 Nucleated RBC % (auto) 0.0 PT 11.8 INR 1.0 APTT 31.2 Anion Gap 11 L Estim Creat Clear Calc 60.6 Estimated GFR > 60 POC Glucose 74 Random Glucose 89 Calcium 9.3 D Total Bilirubin 0.4 AST 30 ALT 16 Alkaline Phosphatase 49 Total Creatine Kinase 167 Total Protein 7.5 Albumin 3.3 L Urine Color Yellow Urine Appearance Clear Urine pH 6.0 Ur Specific [place] 1.020 Urine Protein Trace Urine Glucose (UA) Negative Urine Ketones 15 Urine Blood Negative Urine Nitrite Negative Ur Leukocyte Esterase Negative Urine RBC 0-2 Urine WBC 0-5 Ur Squamous Epith Cells 0-2 Urine Bacteria None Seen Hyaline Casts 0-2 01/20/24 01/20/24 01/21/24 18:10 23:23 05:40 MCV 85.1 MCH 29.2 MCHC 34.3 RDW 16.3 H Plt Count 143 L MPV 11.1 Immature Gran % (Auto) 0.5 H Neut % (Auto) 76.2 H Lymph % (Auto) 8.8 L [place] % (Auto) 12.9 H Eos % (Auto) 1.2 Baso % (Auto) 0.4 Lymph # (Auto) 0.8 L [place] # (Auto) 1.1 Eos # (Auto) 0.1 Baso # (Auto) 0.0 Abs Immat Gran (auto) 0.04 H Absolute Neuts (auto) 6.5 Absolute Nucleated RBC 0.000 Nucleated RBC % (auto) 0.0 PT INR APTT Anion Gap 10 L Estim Creat Clear Calc 71.1 Estimated GFR > 60 POC Glucose 102 148 H Random Glucose 112 Calcium 9.0 Total Bilirubin AST ALT Alkaline Phosphatase Total Creatine Kinase Total Protein Albumin Urine Color Urine Appearance Urine pH Ur Specific [place] Urine Protein Urine Glucose (UA) Urine Ketones Urine Blood Urine Nitrite Ur Leukocyte Esterase Urine RBC Urine WBC Ur Squamous Epith Cells Urine Bacteria Hyaline Casts 01/21/24 05:59 MCV MCH MCHC RDW Plt Count MPV Immature Gran % (Auto) Neut % (Auto) Lymph % (Auto) [place] % (Auto) Eos % (Auto) Baso % (Auto) Lymph # (Auto) [place] # (Auto) Eos # (Auto) Baso # (Auto) Abs Immat Gran (auto) Absolute Neuts (auto) Absolute Nucleated RBC Nucleated RBC % (auto) PT INR APTT Anion Gap Estim Creat Clear Calc Estimated GFR POC Glucose 104 Random Glucose Calcium Total Bilirubin AST ALT Alkaline Phosphatase Total Creatine Kinase Total Protein Albumin Urine Color Urine Appearance Urine pH Ur Specific [place] Urine Protein Urine Glucose (UA) Urine Ketones Urine Blood Urine Nitrite Ur Leukocyte Esterase Urine RBC Urine WBC Ur Squamous Epith Cells Urine Bacteria Hyaline Casts Assessment and Plan (1) Fracture of femoral neck, left, closed: Status: Acute Plan 69-year-old male with history of parkinsonism, CKD stage 3, tardive dyskinesia, schizophrenia, type 2 diabetes, diabetic polyneuropathy, hypertension, hyperlipidemia, coronary artery disease, and COPD admitted for further management of L hip fracture #L hip fracture -Surgical repair by ortho. -Pt is a class II risk on revised cardiac risk index. Given urgent/emergent nature of surgery, would recommend proceeding with surgical procedure with no further testing -pain management prn -hold asa. #CKD stage 3 -renal function baseline #Type 2 diabetes -dose adjusted basal insulin -POC glucose, diabetic diet. NPO -Humalog on sliding scale # diabetic polyneuropathy -continue gabapentin # COPD -no exacerbation, continue home inhalers, albuterol p.r.n. # CAD/HLD -hold ASA. Continue statin, beta-murtaza #Parkinsonism -no meds #Unspecified cognitive impairment with mood disorder -continue home meds dvt prophylaxis- SCPs, addition of blood thinners per orthopedic surgery Full code HCP- [facility] Dejesus [phone], need for inpatient: need for inpatient, hip fracture that need repair by surgeon Quality Stroke Does the patient have a stroke diagnosis?: No VTE Prior VTE?: No VTE Risk Level:: Medical - moderate - high VTE Device Contraindication: N/A - Device Ordered VTE Drug Contraindication: Treatment Not Indicated
[2024-01-21 07:44] LABS: Glucose, Whole Blood 101 mg/dL (60-115)
[2024-01-21] MEDS: Albuterol/Iprat 2.5/0.5MG 3 ML AMPUL.NEB INHALE ×2 (08:19→20:16)
[2024-01-21] MEDS: Fluticasone/Umeclidinium/Vilanterol 100/62.5/25 BLST.W.DEV 1 PUFF INHALE (08:19)
[2024-01-21] MEDS: amLODIPine Besylate 10 MG TABLET PO (08:52)
[2024-01-21] MEDS: Propranolol HCL 10 MG TABLET PO (08:52)
[2024-01-21] MEDS: OLANZapine 10 MG TABLET PO (08:53)
[2024-01-21] MEDS: FLUoxetine HCl 20 MG CAPSULE PO (08:53)
[2024-01-21] MEDS: 0.9 % Sodium Chloride Flush 3 ML SYRINGE IVFLUSH ×2 (08:59→20:18)
[2024-01-21] MEDS: Benztropine Mesylate 1 MG TABLET 2 MG PO (09:02)
[2024-01-21 11:32] LABS: Glucose, Whole Blood 110 mg/dL (60-115)
--- NOTE | 2024-01-21 12:51 | PC.NURSE ---
This nurse spoke with patients detention. Verified last dose of Trulicity with staff. Last taken SQ on 01/15. Dr. Cardenas made aware. Per her, case must be deemed emergent to proceed. Dr. Roberson made aware. Addendum to his note added.
--- NOTE | 2024-01-21 15:35 | MHC.CM.PN ---
CM attempted to complete TECHNICAL ARTIST. Patient resides in [facility]. LM for prison RN Viridiana @ [phone]. Per prison paperwork, no guardian. HCP on file. CM contacted both [facility] and [facility]. LM for both. IMM delivered via VM to [facility], first [facility]. Copy left at bedside. Patient currently in OR for hip fx repair. Will await PT eval for dispo. CM will continue to follow.
[2024-01-21 16:08] LABS: Glucose, Whole Blood 117 mg/dL (60-115)
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
[2024-01-21 20:11] LABS: Glucose, Whole Blood 127 mg/dL (60-115)
[2024-01-21] MEDS: Morphine Sulfate 4 MG/ML CARTRIDGE 2 MG IVPUSH (20:32)
[2024-01-21 23:47] LABS: Glucose, Whole Blood 158 mg/dL (60-115)
[2024-01-22] VITALS (10 sets, daily range): BP systolic 118–155; BP diastolic 59–85; PULSE 83–88; RESP 18–36; TEMP 36.7–37.4; O2SAT 90–95
[2024-01-22 06:29] LABS: Glucose, Whole Blood 132 mg/dL (60-115)
[2024-01-22] MEDS: Omeprazole 20 MG CAPSULE.DR PO (06:33)
--- NOTE | 2024-01-22 06:46 | PM.OP ---
Brief Operative Note Date of Service: 01/21/24 Pre-op diagnosis: Left hip displaced femoral neck fracture Post-op diagnosis: same Procedure: Left hip cemented bipolar hemiarthroplasty Implants: [place] cemented bipolar hemiarthroplasty with an Accolade C cemented femoral stem size 2 with a 127 degree neck-shaft angle, femoral head size 26 with a-3 mm neck, femoral shell size 47, distal centralizer size 10, a small cement plug Surgeon: Dre Roberson MD Anesthesia: GETA Was an Private Wealth Advisor used for this Procedure?: No Private Wealth Advisor: Familia Taylor Estimated blood loss (mL): 150 Pathology: other (Left femoral head) Condition: stable Disposition: PACU
--- NOTE | 2024-01-22 06:47 | W.PM.OPN ---
Operative Note Operative Note Date of Service: 01/21/24 Narrative: After the patient was identified as Armand Bai and his left hip was initialed by myself the patient was brought to the operating room where general anesthesia via endotracheal tube was induced by the anesthesiologist in routine fashion. The patient was given 2 g of IV Ancef for infection prophylaxis. The patient was then gently rolled into the lateral position. An axillary roll was put into place. All bony prominences were well padded. The patient's pelvis was held securely with hip bolsters. The patient's left hip region and lower extremity were prepped and draped in sterile fashion. A #10 scalpel blade was then used to make a curvilinear incision centered over the greater trochanter. The subcutaneous tissues were dissected using electrocautery down to the fascia bebe. The fascia bebe was then split in line with the skin incision using electrocautery. The split in the fascia bebe was curved posteriorly along its cephalad aspect to help prevent injury to the innervation of the tensor fascia bebe muscle. The patient's leg was gently externally rotated. A lateral Kirby approach was then taken down to the anterior joint capsule. The anterior half of the vastus lateralis was split 1 cm from its insertion and tagged with #2 Ethibond suture. The anterior 1/3 of the gluteus medius incision was then split using electrocautery and tagged with #2 Ethibond suture. An anterior capsulectomy was then performed using electrocautery. The femoral neck fracture was identified. The patient's lower extremity was gently externally rotated. The femoral neck cut was made 1 cm proximal to the lesser trochanter. The femoral head was then removed using a corkscrew. The femoral head measured to be a size 47. The trial size 47 femoral head was put into the acetabulum. The trial fit well. The trial was removed. The acetabulum was irrigated with copious amounts of normal saline solution via pulse lavage. The patient's leg was then placed into a sterile pouch along the anterior aspect of the surgical suite table. Soft tissues were retracted around the proximal femur. A box cutting osteotome was used to make a groove in the medial aspect of the greater trochanter. Broaching was begun with a size 0 press-fit broach. Broaching was increased up to a size 2 cemented broach. The size 2 broach fit well. The broach was removed. The distal centralizer was measured to be a size 10. A small cement plug was put into place. The intramedullary canal was irrigated with copious amounts of normal saline solution via pulse lavage while the cement was mixed. Once the cement reached a doughy state it was pressurized into the intramedullary canal. The final implant was put into place. Once the cement had hardened a trial size 47 shell with a -3 mm neck was put into place. The hip was reduced. Leg lengths were clinically equal. The hip was taken through a full range of motion. There was no instability. The hip was dislocated and the patient's leg was placed into the sterile pouch. The trial head was removed. The wound was irrigated with copious amounts of normal saline solution via pulse lavage. The final head and shell were impacted in the place. Leg lengths were clinically equal. Hip was taken through a full range of motion. There was no instability. The patient's leg was then placed onto a well-padded [place] stand. The wound was once again irrigated. The vastus lateralis and tensor fascia bebe tendons were repaired with #2 Ethibond [id number] interrupted suture. The wound was once again irrigated. The fascia bebe was closed with #2 Ethibond [id number] interrupted suture as well as #1 Vicryl [id number] interrupted suture. The wound was once again irrigated. The subcutaneous tissues were closed with 0 Vicryl and 2-0 Vicryl interrupted suture. The skin was closed with skin ted. Dry sterile dressing was placed over the incision. The patient was gently rolled into the supine position. The patient was awoken and extubated in the operating room. The patient was transferred to the recovery room in stable condition.
[2024-01-22 07:21] LABS: Glucose, Whole Blood 126 mg/dL (60-115)
[2024-01-22] MEDS: Fluticasone/Umeclidinium/Vilanterol 100/62.5/25 BLST.W.DEV 1 PUFF INHALE (08:09)
[2024-01-22] MEDS: Albuterol/Iprat 2.5/0.5MG 3 ML AMPUL.NEB INHALE ×2 (08:09→19:43)
[2024-01-22] MEDS: OLANZapine 10 MG TABLET PO (08:33)
[2024-01-22] MEDS: Propranolol HCL 10 MG TABLET PO (08:33)
[2024-01-22] MEDS: Sodium Chloride Tab 1 GM TABLET PO ×2 (08:33→20:27)
[2024-01-22] MEDS: amLODIPine Besylate 10 MG TABLET PO (08:33)
[2024-01-22] MEDS: Benztropine Mesylate 1 MG TABLET 2 MG PO ×3 (08:33→20:27)
[2024-01-22] MEDS: oxyCODONE HCl Immed Release 5 MG TABLET PO ×2 (08:33→17:16)
[2024-01-22] MEDS: Docusate Sodium 100 MG CAPSULE PO (08:33)
[2024-01-22] MEDS: Cholecalciferol (Vitamin D3) 25 MCG TABLET 50 MCG PO (08:33)
[2024-01-22] MEDS: FLUoxetine HCl 20 MG CAPSULE PO (08:33)
--- NOTE | 2024-01-22 08:33 | P.PNOP_ITS ---
Subjective Subjective Date of Service: 01/22/24 Interval history: POD 1 s/p LT hip brad no overnight events resting in bed w cpap no concerns Physical Exam Vital Signs: Vital Signs: Last Vital Signs Temp 98.5 F 01/22/24 08:00 Pulse 88 01/22/24 08:10 Resp 24 H 01/22/24 08:10 BP 155/85 H 01/22/24 08:00 Pulse Ox 95 01/22/24 08:00 O2 Del Method Room Air 01/22/24 08:00 O2 Flow Rate 2 01/21/24 19:09 BMI result Body Mass Index 20.9 Const: General: cooperative, healthy appearing and no acute distress Resp: Effort & Inspection: normal respiratory effort and able to speak in complete sentences Cardio: Rate: regular rate Peripheral pulses: Peripheral pulses 2+ throughout GI: Palpation (GI): Soft to palpation Skin: General skin exam: no rashes or lesions noted Extrem: Other: bandage clean dry and intact. [place] intact. No erythema or effusion. Calf supple nontender. Neurovascularly intact. Procedures Date of Service Date of Service: 01/22/24 Progress Note: A&P Assessment and plan (1) Fracture of femoral neck, left, closed: Status: Acute Assessment and Plan: * Continue pain mgmnt * Begin Aspirin for dvt ppx * begin PT/OT for LT hip brad * Dispo planning-Pending PT eval, pain mgmnt Need for continued inpatient stay: Time Spent With Patient Time: Total time managing care of this patient today ____ minutes. Quality Stroke Does the patient have a stroke diagnosis?: No VTE Prior VTE?: No VTE Risk Level:: Medical - moderate - high VTE Device Contraindication: N/A - Device Ordered VTE Drug Contraindication: Treatment Not Indicated
[2024-01-22] MEDS: 0.9 % Sodium Chloride Flush 3 ML SYRINGE IVFLUSH ×3 (08:34→20:28)
[2024-01-22] MEDS: Gabapentin 300 MG CAPSULE PO (08:34)
[2024-01-22] MEDS: Insulin Glargine,Hum.rec.anlog 100 UNIT/ML 10 ML VIAL 7 UNIT SUBCUT (08:34)
--- NOTE | 2024-01-22 09:21 | PC.NURSE ---
Addendum entered by Elizabeth Gann RN 01/22/24 09:56: CXR ordered per . Addendum entered by Elizabeth Gann RN 01/22/24 09:49: MD Daley made aware at time of symptoms, no new orders at this time. Original Note: 0921 pt RR 36 reported by HEAD OF MARKETING [employer]ETRY, all other VS stable 97.7, 144/73, 88 HR, 95% on room air. Pt reporting pain in left hip PRN oxy given with morning medications 0833. PRN Morphine given Pending results.
[2024-01-22] MEDS: Morphine Sulfate 4 MG/ML CARTRIDGE 2 MG IVPUSH ×2 (09:26→13:19)
--- NOTE | 2024-01-22 09:39 | MHC.CM.PN ---
Addendum entered by Tomeka Spencer RN 01/22/24 14:55: CM met with patient w/ seismic interpreter assisting. DP: STR @ [facility] when medically cleared. Original Note: PT rec STR. CM spoke w/ Viridiana, longterm RN. Per Viridiana patient is making his own decisions, HCP not invoked. Independent w/ ambulation and ADL's. Cannot return to longterm until he completes STR. Referrals to be placed.
[2024-01-22 10:01] LABS: Hematocrit 34.6 % (42.0-52.0); Hemoglobin 11.3 g/dl (14.0-18.0); Mean Corpuscular HGB Conc 32.7 g/dl (31.0-36.0); Mean Corpuscular Hemoglobin 28.5 pg (27.0-33.0); Mean Corpuscular Volume 87.4 fL (80.0-98.0); Mean Platelet Volume 11.1 fL (9.4-12.4); Platelet Count 174 X10*3/uL (160-400); Red Blood Count 3.96 X10*6/uL (4.60-5.80); Red Cell Distribution Width 16.2 % (11.0-16.0); White Blood Count 10.6 X10*3/uL (4.8-10.8)
--- NOTE | 2024-01-22 10:22 | P.PNIM_ITS ---
Subjective Subjective Date of Service: 01/22/24 Interval History: f/u on hip fracture s/p surgery. Pain is controlled. He seems to be breathing fast but denies any discomfort, O2 sat normal. Physical Exam 2 Vital Signs: Vital Signs: Last Vital Signs Temp 98.5 F 01/22/24 08:00 Pulse 88 01/22/24 09:50 Resp 36 H 01/22/24 09:19 BP 144/73 H 01/22/24 09:50 Pulse Ox 95 01/22/24 09:50 O2 Del Method Room Air 01/22/24 09:19 O2 Flow Rate 2 01/21/24 19:09 BMI result Body Mass Index 20.9 General: Alert , no acute distress Resp: clear , hyperventilating CVS: S1,S2,RRR GI: +BS, NT, no distention Skin: No rash Neuro: motor grossly intact Psych: appropriate affect Objective Data Active Medications Acetaminophen (Acetaminophen 325 Mg Tablet) 650 mg PO Q6H PRN PRN Reason: Pain, Mild (Pain Scale 1-3), fever or headache Albuterol Sulfate (Albuterol Sulfate 90 Mcg 8 Gm Inhaler) 2 puff INHALE Q4H PRN PRN Reason: shortness of breath or wheezing Albuterol/Ipratropium (Albuterol/Iprat 2.5/0.5mg 3 Ml Ampul.Neb) 3 ml INHALE RBID [facility] Last Admin: 01/22/24 08:09 Dose: 3 ml Documented By: VALE Amlodipine Besylate (Amlodipine Besylate 10 Mg Tablet) 10 mg PO DAILY [facility]; Protocol Last Admin: 01/22/24 08:33 Dose: 10 mg Documented By: NED Aspirin (Aspirin Enteric Coated 81 Mg Tablet.) 81 mg PO DAILY [facility] Last Admin: 01/22/24 08:35 Dose: Not Given Documented By: NED Non-Admin Reason: held per MD Edi rossi Aspirin (Aspirin 325 Mg Tablet) 325 mg PO BID [facility] Atorvastatin Calcium (Atorvastatin Calcium 10 Mg Tablet) 10 mg PO BEDTIME [facility] Last Admin: 01/21/24 20:35 Dose: Not Given Documented By: DU Non-Admin Reason: Patient Asleep Benztropine Mesylate (Benztropine Mesylate 1 Mg Tablet) 2 mg PO TID [facility] Last Admin: 01/22/24 08:33 Dose: 2 mg Documented By: NED Calcium Carbonate (Calcium Carbonate 750 Mg Tab.Chew) 750 mg PO Q4H PRN PRN Reason: Heartburn Divalproex Sodium (Divalproex Sodium Er 500 Mg Tab.Er.24h) 1,500 mg PO BEDTIME [facility] Last Admin: 01/21/24 20:36 Dose: Not Given Documented By: DU Non-Admin Reason: Patient Asleep Docusate Sodium (Docusate Sodium 100 Mg Capsule) 100 mg PO DAILY [facility] Last Admin: 01/22/24 08:33 Dose: 100 mg Documented By: NED Fluoxetine HCl (Fluoxetine Hcl 20 Mg Capsule) 20 mg PO DAILY [facility] Last Admin: 01/22/24 08:33 Dose: 20 mg Documented By: NED Fluticasone/Umeclidinium/Vilanterol (Fluticasone/Umeclidinium/Vilanterol 100/62.5/25 Blst.W.Dev) 1 puff INHALE RDAILY [facility] Last Admin: 01/22/24 08:09 Dose: 1 puff Documented By: VALE Gabapentin (Gabapentin 600 Mg Tablet) 600 mg PO BEDTIME [facility] Last Admin: 01/21/24 20:36 Dose: Not Given Documented By: DU Non-Admin Reason: Patient Asleep Gabapentin (Gabapentin 300 Mg Capsule) 300 mg PO DAILY [facility] Last Admin: 01/22/24 08:34 Dose: 300 mg Documented By: NED Glucose (Glucose Gel 15 Gm Gel..Gram.) 15 gm PO Q15M PRN; Protocol PRN Reason: per Hypoglycemia Standing Ord. Hydrocortisone (Hydrocortisone 1 % Cream 28.35 Gm Tube) 1 appl TOPICAL DAILY PRN PRN Reason: immflamation Dextrose (D10) 250 mls @ 750 mls/hr IV Q15M PRN; Protocol PRN Reason: per Hypoglycemia Standing Ord. Cefazolin Sodium/Dextrose (Ancef) 2 gm in 50 mls @ 100 mls/hr IV POSTOP [facility] Insulin Glargine (Insulin Glargine,Hum.Rec.Anlog 100 Unit/Ml 10 Ml Vial) 7 unit SUBCUT DAILY [facility] Last Admin: 01/22/24 08:34 Dose: 7 unit Documented By: NED Insulin Human Lispro (Insulin Lispro 100 Unit/Ml 3 Ml Vial) 0 unit SUBCUT Q6H [facility]; Protocol Last Admin: 01/22/24 06:31 Dose: Not Given Documented By: DU Non-Admin Reason: No Insulin Coverage Magnesium Hydroxide (Milk Of Magnesia 30 Ml Oral.Susp) 30 ml PO DAILY PRN PRN Reason: Constipation Morphine Sulfate (Morphine Sulfate 4 Mg/Ml Cartridge) 2 mg IVPUSH Q4H PRN; Protocol PRN Reason: Pain, Severe (Pain Scale 7-10) Last Admin: 01/22/24 09:26 Dose: 2 mg Documented By: NED Non-Formulary Medication (Dulaglutide [Trulicity]) 0.75 mg SUBCUT FR@0900 [facility] Olanzapine (Olanzapine 10 Mg Tablet) 10 mg PO DAILY [facility] Last Admin: 01/22/24 08:33 Dose: 10 mg Documented By: NED Olanzapine (Olanzapine 10 Mg Tablet) 20 mg PO BEDTIME [facility] Last Admin: 01/21/24 20:36 Dose: Not Given Documented By: DU Non-Admin Reason: Patient Asleep Omeprazole (Omeprazole 20 Mg Capsule.Dr) 20 mg PO DAILY@0630 [facility] Last Admin: 01/22/24 06:33 Dose: 20 mg Documented By: DU Ondansetron HCl (Ondansetron Hcl 4 Mg/2 Ml Vial) 4 mg IVPUSH Q8H PRN PRN Reason: Nausea and Vomiting Oxycodone HCl (Oxycodone Hcl Immed Release 5 Mg Tablet) 5 mg PO Q6H PRN PRN Reason: Pain, Moderate(Pain Scale 4-6) Last Admin: 01/22/24 08:33 Dose: 5 mg Documented By: NED Propranolol HCl (Propranolol Hcl 20 Mg Tablet) 20 mg PO BEDTIME [facility]; Protocol Last Admin: 01/21/24 20:36 Dose: Not Given Documented By: DU Non-Admin Reason: Patient Asleep Propranolol HCl (Propranolol Hcl 10 Mg Tablet) 10 mg PO DAILY [facility]; Protocol Last Admin: 01/22/24 08:33 Dose: 10 mg Documented By: NED Senna (Sennosides 8.6 Mg Tablet) 17.2 mg PO DAILY PRN PRN Reason: constipation Sodium Chloride (0.9 % Sodium Chloride Flush 3 Ml Syringe) 3 ml IVFLUSH QSHIFT [facility] Last Admin: 01/22/24 08:34 Dose: 3 ml Documented By: NED Sodium Chloride (Sodium Chloride Tab 1 Gm Tablet) 1 gm PO BID [facility] Last Admin: 01/22/24 08:33 Dose: 1 gm Documented By: NED Vitamin D (Cholecalciferol (Vitamin D3) 25 Mcg Tablet) 50 mcg PO DAILY [facility] Last Admin: 01/22/24 08:33 Dose: 50 mcg Documented By: NED Labs 01/22/24 09:48 01/21/24 05:40 Labs: Laboratory Results - last 24 hr 01/21/24 01/21/24 01/21/24 11:27 16:03 20:07 MCV MCH MCHC RDW Plt Count MPV Absolute Nucleated RBC Nucleated RBC % (auto) POC Glucose 110 117 H 127 H 01/21/24 01/22/24 01/22/24 23:43 06:23 07:12 MCV MCH MCHC RDW Plt Count MPV Absolute Nucleated RBC Nucleated RBC % (auto) POC Glucose 158 H 132 H 126 H 01/22/24 09:48 MCV 87.4 MCH 28.5 MCHC 32.7 RDW 16.2 H Plt Count 174 MPV 11.1 Absolute Nucleated RBC 0.000 Nucleated RBC % (auto) 0.0 POC Glucose Assessment and Plan (1) Fracture of femoral neck, left, closed: Status: Acute Plan 69-year-old male with history of parkinsonism, CKD stage 3, tardive dyskinesia, schizophrenia, type 2 diabetes, diabetic polyneuropathy, hypertension, hyperlipidemia, coronary artery disease, and COPD admitted for further management of L hip fracture #L hip fracture -s/p surgical repair 01/21 -pain control, ASA for DVT prophylaxis -pain management prn #CKD stage 3 -renal function baseline #Type 2 diabetes -dose adjusted basal insulin -POC glucose, diabetic diet. NPO -Humalog on sliding scale # diabetic polyneuropathy -continue gabapentin # COPD -no exacerbation, continue home inhalers, albuterol p.r.n. -he is hyperventilating but doesn't appear uncomfortable, O2 sat normal, get ABG, CXR # CAD/HLD ASA. Continue statin, beta-murtaza #Parkinsonism -no meds #Unspecified cognitive impairment with mood disorder -continue home meds dvt prophylaxis- SCPs, high dose ASA Full code HCP- Halley Dejesus [phone], need for inpatient: need for inpatient, hip fracture that need repair by surgeon Quality Stroke Does the patient have a stroke diagnosis?: No VTE Prior VTE?: No VTE Risk Level:: Medical - moderate - high VTE Device Contraindication: N/A - Device Ordered VTE Drug Contraindication: Treatment Not Indicated
[2024-01-22 10:48] LABS: Anion Gap 17 (12-20); Blood Urea Nitrogen 25 mg/dL (9-16); Calcium 9.1 mg/dL (8.4-10.2); Carbon Dioxide 19 mmol/L (22-29); Chloride 104 mmol/L (96-108); Creatinine Clr Calc Pharmacy 68.3; Estimated Glomerular Filt Rate > 60; Glucose Random 156 mg/dL (60-115); Potassium 4.5 mmol/L (3.3-5.1); Sodium 135 mmol/L (135-145)
[2024-01-22 11:19] LABS: Glucose, Whole Blood 166 mg/dL (60-115)
--- NOTE | 2024-01-22 11:27 | HO.POSTANES ---
Post Anesthesia Evaluation Post Anesthesia Evaluation Date of Service: 01/21/24 Vital Signs: Vital Signs Temp Pulse Resp BP Pulse Ox O2 Del Method 01/22/24 09:50 88 144/73 H 95 01/22/24 09:19 88 36 H 144/73 H 95 Room Air 01/22/24 08:53 88 01/22/24 08:10 88 24 H 01/22/24 08:00 98.5 F 83 22 H 155/85 H 95 Room Air Anesthesia: General Mental Status: Awake Pain Control: Satisfactory Nausea/Vomiting: None Hydration: Adequate Anesthesia-Related Issues: No Anes. Related Issues
[2024-01-22] MEDS: Insulin Lispro 100 UNIT/ML 3 ML VIAL SUBCUT ×2 (11:32→20:28)
[2024-01-22 16:12] LABS: Glucose, Whole Blood 147 mg/dL (60-115)
[2024-01-22] MEDS: Aspirin 325 MG TABLET PO (17:13)
--- NOTE | 2024-01-22 19:50 | MHC.PIE ---
p; pt no longer nop, pt tolerating diet, tele shows s/r. note; pt from halfway, confused [place] base, pt known to try to pull out tubes and jumping out of bed, 1;[address] for pt safty. pt on poc q6 and admelog q6 i; dr bolden notified. dc tele, poc and admelog changed to qidachs. e; will cont to monitor
[2024-01-22 20:05] LABS: Glucose, Whole Blood 210 mg/dL (60-115)
[2024-01-22] MEDS: Divalproex Sodium ER 500 MG TAB.ER.24H 1500 MG PO (20:27)
[2024-01-22] MEDS: OLANZapine 10 MG TABLET 20 MG PO (20:27)
[2024-01-22] MEDS: Atorvastatin Calcium 10 MG TABLET PO (20:28)
[2024-01-22] MEDS: Gabapentin 600 MG TABLET PO (20:28)
[2024-01-22] MEDS: Propranolol HCL 20 MG TABLET PO (20:28)
[2024-01-23] VITALS (9 sets, daily range): BP systolic 128–162; BP diastolic 62–70; PULSE 77–89; RESP 16–22; TEMP 36.2–37.1; O2SAT 91–97
[2024-01-23] MEDS: Omeprazole 20 MG CAPSULE.DR PO (05:33)
[2024-01-23] MEDS: oxyCODONE HCl Immed Release 5 MG TABLET PO (05:34)
[2024-01-23] MEDS: Albuterol/Iprat 2.5/0.5MG 3 ML AMPUL.NEB INHALE (07:58)
[2024-01-23] MEDS: Insulin Lispro 100 UNIT/ML 3 ML VIAL SUBCUT (08:01)
[2024-01-23] MEDS: 0.9 % Sodium Chloride Flush 3 ML SYRINGE IVFLUSH ×3 (08:02→21:06)
[2024-01-23] MEDS: Insulin Glargine,Hum.rec.anlog 100 UNIT/ML 10 ML VIAL 7 UNIT SUBCUT (08:02)
[2024-01-23] MEDS: Fluticasone/Umeclidinium/Vilanterol 100/62.5/25 BLST.W.DEV 1 PUFF INHALE (08:13)
[2024-01-23 10:13] LABS: Glucose, Whole Blood 167 mg/dL (60-115)
[2024-01-23 10:18] LABS: Basophils Percent Auto 0.1 % (0-2); Eosinophils Percent Auto 0.1 % (0-4); Hematocrit 31.6 % (42.0-52.0); Hemoglobin 10.7 g/dl (14.0-18.0); Imm Gran Abs Auto 0.03 X10*3/uL (0.00-0.03); Imm Gran Pct Auto 0.3 % (0.0-0.4); Lymphocytes Absolute Auto 0.8 X10*3/uL (1.2-4.9); Lymphocytes Percent Auto 8.8 % (20-40); MANUAL DIFF FLAG SCAN; Mean Corpuscular HGB Conc 33.9 g/dl (31.0-36.0); Mean Corpuscular Hemoglobin 29.1 pg (27.0-33.0); Mean Corpuscular Volume 85.9 fL (80.0-98.0); Mean Platelet Volume 10.9 fL (9.4-12.4); Monocytes Absolute Auto 2.2 X10*3/uL (0.1-1.2); Monocytes Percent Auto 24.7 % (2-11); Neutrophils Absolute Auto 5.8 x10*3/uL (2.0-8.3); Platelet Count 145 X10*3/uL (160-400); Red Blood Count 3.68 X10*6/uL (4.60-5.80); Red Cell Distribution Width 16.3 % (11.0-16.0); SCAN SMEAR FLAG 1; White Blood Count 8.8 X10*3/uL (4.8-10.8)
[2024-01-23 10:47] LABS: SLIDE REVIEW VERIFIED
[2024-01-23] MEDS: Cholecalciferol (Vitamin D3) 25 MCG TABLET 50 MCG PO (10:57)
[2024-01-23] MEDS: amLODIPine Besylate 10 MG TABLET PO (10:58)
[2024-01-23] MEDS: FLUoxetine HCl 20 MG CAPSULE PO (10:58)
[2024-01-23] MEDS: Propranolol HCL 10 MG TABLET PO (10:58)
[2024-01-23] MEDS: OLANZapine 10 MG TABLET PO (10:58)
[2024-01-23] MEDS: Sodium Chloride Tab 1 GM TABLET PO (10:58)
[2024-01-23] MEDS: Gabapentin 300 MG CAPSULE PO (10:58)
[2024-01-23] MEDS: Aspirin 325 MG TABLET PO (10:58)
[2024-01-23] MEDS: Benztropine Mesylate 1 MG TABLET 2 MG PO (10:58)
[2024-01-23] MEDS: Docusate Sodium 100 MG CAPSULE PO (10:59)
[2024-01-23 11:32] LABS: Anion Gap 10 (12-20); Blood Urea Nitrogen 25 mg/dL (9-16); Calcium 8.9 mg/dL (8.4-10.2); Carbon Dioxide 24 mmol/L (22-29); Chloride 104 mmol/L (96-108); Creatinine Clr Calc Pharmacy 84.1; Estimated Glomerular Filt Rate > 60; Glucose Random 246 mg/dL (60-115); Potassium 3.8 mmol/L (3.3-5.1); Sodium 134 mmol/L (135-145)
[2024-01-23 11:38] LABS: Glucose, Whole Blood 210 mg/dL (60-115)
--- NOTE | 2024-01-23 11:54 | PM.DS ---
DS: Providers Provider Date of admission: 01/20/24 12:01 Primary care physician: Nicholas Rashid, [employer]- Consults: 01/21/24 03:42 Consult for Sitter Routine Reason for consultation: hyperactive delirium DS: Diagnosis Discharge Diagnosis (1) Fracture of femoral neck, left, closed: Status: Acute DS: Summary Hospital Course Hospital Course: Chief Complaint: fall 69-year-old male with history of parkinsonism, CKD stage 3, tardive dyskinesia, schizophrenia, type 2 diabetes, diabetic polyneuropathy, hypertension, hyperlipidemia, coronary artery disease, and COPD presented to the ED via EMS from [facility] after an unwitnessed fall. halfway staff member, Gayla, reports that the patient got out of bed and was coming to get his medications when he sustained fall that was unwitnessed. However, staff did hear the fall and called EMS for further assistance. Per Gayla, patient is disoriented at baseline and provides limited history. No known history of arrhythmia. He has been progressively unsteady on his feet and ambulates with a walker at baseline. On arrival to the ED, vital signs are stable. He has a chronic normocytic anemia with H/H 11.5/34.4%. Renal function baseline, electrolyte levels normal. Urinalysis negative. Head CT negative for acute intracranial abnormality and CT of the cervical spine is negative for any acute osseous abnormality but shows multilevel degenerative changes. Chest x-ray shows bilateral lower lobe atelectasis, otherwise unremarkable. There is no leukocytosis. X-ray of the left hip/pelvis shows basicervical/transcervical left femoral neck fracture with prominent varus angulation and degenerative arthropathy of the bilateral femoral acetabular joints and lumbosacral spine. Since arrival to the ED, has been given 30 mg IV ketorolac. Hospital course: Patient was admitted and underwent suscesful hip repair and recovery well after surgery. He will be on ASA for DVT prevention and will go to short term rehab to speed recoverfor less than 30days. Post op CBC have been unremarkable. Time Attestation Discharge Coordination Time (in mins): 45 Quality: Safe Use of Opioids Does Pt have an Active Cancer Diagnosis on the Problem List?: No Quality: Stroke Does the patient have a stroke diagnosis?: No Physical Exam Vital Signs: Vital Signs: Last Vital Signs Temp 97.4 F 01/23/24 08:00 Pulse 80 01/23/24 10:58 Resp 18 01/23/24 08:00 BP 162/70 H 01/23/24 10:58 Pulse Ox 92 01/23/24 08:00 O2 Del Method Room Air 01/23/24 08:00 O2 Flow Rate 2 01/21/24 19:09 BMI result Body Mass Index 20.9 DS: Data Data Completed and Pending Pending studies at discharge: Pending at discharge 01/21/24 18:11 Surgical [PTH] Routine Labs on day of discharge: Laboratory Results - last 24 hr 01/22/24 01/22/24 01/23/24 16:01 19:55 07:25 WBC RBC Hgb Hct MCV MCH MCHC RDW Plt Count MPV Immature Gran % (Auto) Neut % (Auto) Lymph % (Auto) Mcnairy % (Auto) Eos % (Auto) Baso % (Auto) Lymph # (Auto) Mcnairy # (Auto) Eos # (Auto) Baso # (Auto) Abs Immat Gran (auto) Absolute Neuts (auto) Absolute Nucleated RBC Nucleated RBC % (auto) Smear Tech's Comments Hold Purple Top Sodium Potassium Chloride Carbon Dioxide Anion Gap BUN Creatinine Estim Creat Clear Calc Estimated GFR POC Glucose 147 H 210 H 167 H Random Glucose Calcium 01/23/24 01/23/24 01/23/24 10:34 11:29 Unknown WBC 8.8 RBC 3.68 L Hgb 10.7 L Hct 31.6 L MCV 85.9 MCH 29.1 MCHC 33.9 RDW 16.3 H Plt Count 145 L MPV 10.9 Immature Gran % (Auto) 0.3 Neut % (Auto) 66.0 Lymph % (Auto) 8.8 L Mcn[place] % (Auto) 24.7 H Eos % (Auto) 0.1 Baso % (Auto) 0.1 Lymph # (Auto) 0.8 L [place] # (Auto) 2.2 H Eos # (Auto) 0.0 Baso # (Auto) 0.0 Abs Immat Gran (auto) 0.03 Absolute Neuts (auto) 5.8 Absolute Nucleated RBC 0.000 Nucleated RBC % (auto) 0.0 Smear Tech's Comments VERIFIED Hold Purple Top SEE NOTE Sodium 134 L Potassium 3.8 Chloride 104 Carbon Dioxide 24 Anion Gap 10 L BUN 25 H Creatinine 0.82 Estim Creat Clear Calc 84.1 Estimated GFR > 60 POC Glucose 210 H Random Glucose 246 H Calcium 8.9 Discharge Plan Discharge Anticipated Discharge Date/Time: 01/23/24 11:52 Patient Disposition: Xfer SNF Discharge Diagnosis: Hip fracture Referrals: Nicholas Rashid, [employer]- [Primary Care Provider] - 1 Week Familia Taylor PA-C [Physician Sheet Cutter] - 2 Weeks (02/04/24 10:00 [facility] Familia Taylor PA-C ) Discharge Medications: Continued (DME) blood-glucose meter [FreeStyle Lite Meter] Kit See Rx Instructions .ROUTE .MEDSUPPLY Qty: 1 0RF Rx Instructions: As directed sennosides 8.6 mg tablet 17.2 mg PO DAILY PRN (Reason: constipation) Qty: 60 2RF insulin degludec [Tresiba FlexTouch U-100] 100 unit/mL (3 mL) insulin pen 10 unit subcut DAILY Qty: 15 1RF Trulicity 0.75 mg/0.5 mL pen injector 0.75 mg subcut FR@0900 Qty: 6 1RF amlodipine 10 mg tablet 10 mg PO DAILY 90 Days Qty: 90 1RF (DME) FreeStyle Lite Strips Strip See Rx Instructions .Route Qty: 100 0RF Rx Instructions: Use to check blood sugar once a day atorvastatin 10 mg tablet 10 mg PO BEDTIME Qty: 90 1RF (DME) pen needle, diabetic [BD Ultra-Fine Mini Pen Needle] 31 gauge x 3/16 needle See Rx Instructions subcut TID Qty: 100 1RF Rx Instructions: As directed to inject insulin daily acetaminophen [Tylenol 8 Hour] 650 mg tablet extended release 650 mg PO Q6H PRN (Reason: pain) 30 Days Qty: 120 0RF sodium chloride 1,000 mg tablet,soluble 1,000 mg PO BID Qty: 60 2RF aspirin [Adult Low Dose Aspirin] 81 mg tablet,delayed release (DR/EC) 81 mg PO DAILY Qty: 90 1RF cholecalciferol (vitamin D3) 50 mcg (2,000 unit) tablet 50 mcg PO DAILY Qty: 90 1RF propranolol 20 mg tablet 20 mg PO BEDTIME gabapentin 600 mg Tablet 600 mg PO BEDTIME fluoxetine 20 mg capsule 20 mg PO DAILY albuterol sulfate 90 mcg/actuation aerosol powdr breath activated 2 inh inhalation Q4H PRN (Reason: shortness of breath or wheezing) docusate sodium 100 mg capsule 100 mg PO DAILY omeprazole 20 mg capsule,delayed release(DR/EC) 20 mg PO DAILY@0630 gabapentin 300 mg capsule 300 mg PO DAILY Rx Instructions: 600mg in PM vitamin E 1,150 unit/1.25 mL liquid 1,000 unit PO DAILY divalproex 500 mg tablet extended release 24 hr 1,500 mg PO BEDTIME ipratropium-albuterol 0.5 mg-3 mg(2.5 mg base)/3 mL solution for nebulization 3 ml inhalation BID 30 Days Qty: 180 11RF Trelegy Ellipta 100-62.5-25 mcg blister with device 1 inh inhalation DAILY 30 Days Qty: 60 11RF olanzapine 20 mg tablet 20 mg PO BEDTIME propranolol 10 mg tablet 10 mg PO DAILY hydrocortisone 2.5 % cream 1 appl topical DAILY PRN (Reason: immflamation) (DME) nebulizers Misc See Rx Instructions .Route Rx Instructions: As directed olanzapine 10 mg tablet 10 mg PO DAILY benztropine 2 mg tablet 2 mg PO TID Discharge Orders: Discharge Order (Routine); Ordered 01/23/24 Ordered By: Ozzy Daley Diet: Advance to usual diet Activity on Discharge: As tolerated Stand Alone Forms: Patient Portal Discharge page Print Language: Japanese Care Plan Goals: recovery from hip fracture Health Concerns: hip fracture Plan of Treatment: to short term rehab for less than 30 days for recovery from hip fracture Assessment: see above
--- NOTE | 2024-01-23 12:39 | PC.NURSE ---
Pt sleeping heavy. Calm, cooperative. No behavioral issues at this time. Wakes up to eat and take medications and returns to sleep.
[2024-01-23 12:50] LABS: ABG HCO3 25 mmol/L (22-26); ABG pCO2 31 mmHg (32-45); ABG pH 7.51 (7.35-7.45); ABG pO2 71 mmHg (83-108)
--- NOTE | 2024-01-23 13:23 | P.PNIM_ITS ---
Subjective Subjective Date of Service: 01/23/24 Interval History: f/u on hip fracture s/p surgery. Pain is controlled. Patient has been very somnolent this since the morning, he ate breakfast He woke up with sternal rub but falls right back to sleep, sugar level Ok Physical Exam 2 Vital Signs: Vital Signs: Last Vital Signs Temp 97.4 F 01/23/24 08:00 Pulse 83 01/23/24 12:00 Resp 22 H 01/23/24 12:00 BP 135/62 01/23/24 12:00 Pulse Ox 94 01/23/24 12:00 O2 Del Method Room Air 01/23/24 12:00 O2 Flow Rate 2 01/21/24 19:09 BMI result Body Mass Index 20.9 Objective Data Active Medications Acetaminophen (Acetaminophen 325 Mg Tablet) 650 mg PO Q6H PRN PRN Reason: Pain, Mild (Pain Scale 1-3), fever or headache Albuterol Sulfate (Albuterol Sulfate 90 Mcg 8 Gm Inhaler) 2 puff INHALE Q4H PRN PRN Reason: shortness of breath or wheezing Albuterol/Ipratropium (Albuterol/Iprat 2.5/0.5mg 3 Ml Ampul.Neb) 3 ml INHALE RBID [facility] Last Admin: 01/23/24 07:58 Dose: 3 ml Documented By: VALE Amlodipine Besylate (Amlodipine Besylate 10 Mg Tablet) 10 mg PO DAILY [facility]; Protocol Last Admin: 01/23/24 10:58 Dose: 10 mg Documented By: YOANDY Aspirin (Aspirin Enteric Coated 81 Mg Tablet.Dr) 81 mg PO DAILY [facility] Last Admin: 01/23/24 08:59 Dose: Not Given Aspirin (Aspirin 325 Mg Tablet) 325 mg PO BID [facility] Last Admin: 01/23/24 10:58 Dose: 325 mg Documented By: YOANDY Atorvastatin Calcium (Atorvastatin Calcium 10 Mg Tablet) 10 mg PO BEDTIME [facility] Last Admin: 01/22/24 20:28 Dose: 10 mg Documented By: DU Benztropine Mesylate (Benztropine Mesylate 1 Mg Tablet) 2 mg PO TID [facility] Last Admin: 01/23/24 10:58 Dose: 2 mg Documented By: YOANDY Calcium Carbonate (Calcium Carbonate 750 Mg Tab.Chew) 750 mg PO Q4H PRN PRN Reason: Heartburn Divalproex Sodium (Divalproex Sodium Er 500 Mg Tab.Er.24h) 1,500 mg PO BEDTIME [facility] Last Admin: 01/22/24 20:27 Dose: 1,500 mg Documented By: DU Docusate Sodium (Docusate Sodium 100 Mg Capsule) 100 mg PO DAILY [facility] Last Admin: 01/23/24 10:59 Dose: 100 mg Documented By: YOANDY Fluoxetine HCl (Fluoxetine Hcl 20 Mg Capsule) 20 mg PO DAILY [facility] Last Admin: 01/23/24 10:58 Dose: 20 mg Documented By: YOANDY Fluticasone/Umeclidinium/Vilanterol (Fluticasone/Umeclidinium/Vilanterol 100/62.5/25 Blst.W.Dev) 1 puff INHALE RDAILY [facility] Last Admin: 01/23/24 08:13 Dose: 1 puff Documented By: VALE Gabapentin (Gabapentin 600 Mg Tablet) 600 mg PO BEDTIME [facility] Last Admin: 01/22/24 20:28 Dose: 600 mg Documented By: DU Gabapentin (Gabapentin 300 Mg Capsule) 300 mg PO DAILY [facility] Last Admin: 01/23/24 10:58 Dose: 300 mg Documented By: YOANDY Glucose (Glucose Gel 15 Gm Gel..Gram.) 15 gm PO Q15M PRN; Protocol PRN Reason: per Hypoglycemia Standing Ord. Hydrocortisone (Hydrocortisone 1 % Cream 28.35 Gm Tube) 1 appl TOPICAL DAILY PRN PRN Reason: immflamation Dextrose (D10) 250 mls @ 750 mls/hr IV Q15M PRN; Protocol PRN Reason: per Hypoglycemia Standing Ord. Cefazolin Sodium/Dextrose (Ancef) 2 gm in 50 mls @ 100 mls/hr IV POSTOP [facility] Insulin Glargine (Insulin Glargine,Hum.Rec.Anlog 100 Unit/Ml 10 Ml Vial) 7 unit SUBCUT DAILY [facility] Last Admin: 01/23/24 08:02 Dose: 7 unit Documented By: YOANDY Insulin Human Lispro (Insulin Lispro 100 Unit/Ml 3 Ml Vial) 0 unit SUBCUT QIDACHS [facility]; Protocol Last Admin: 01/23/24 08:01 Dose: 2 unit Documented By: YOANDY Magnesium Hydroxide (Milk Of Magnesia 30 Ml Oral.Susp) 30 ml PO DAILY PRN PRN Reason: Constipation Morphine Sulfate (Morphine Sulfate 4 Mg/Ml Cartridge) 2 mg IVPUSH Q4H PRN; Protocol PRN Reason: Pain, Severe (Pain Scale 7-10) Last Admin: 01/22/24 13:19 Dose: 2 mg Non-Formulary Medication (Dulaglutide [Trulicity]) 0.75 mg SUBCUT FR@0900 [facility] Olanzapine (Olanzapine 10 Mg Tablet) 10 mg PO DAILY [facility] Last Admin: 01/23/24 10:58 Dose: 10 mg Documented By: YOANDY Olanzapine (Olanzapine 10 Mg Tablet) 20 mg PO BEDTIME [facility] Last Admin: 01/22/24 20:27 Dose: 20 mg Documented By: DU Omeprazole (Omeprazole 20 Mg Capsule.Dr) 20 mg PO DAILY@0630 [facility] Last Admin: 01/23/24 05:33 Dose: 20 mg Documented By: DU Ondansetron HCl (Ondansetron Hcl 4 Mg/2 Ml Vial) 4 mg IVPUSH Q8H PRN PRN Reason: Nausea and Vomiting Propranolol HCl (Propranolol Hcl 20 Mg Tablet) 20 mg PO BEDTIME [facility]; Protocol Last Admin: 01/22/24 20:28 Dose: 20 mg Documented By: DU Propranolol HCl (Propranolol Hcl 10 Mg Tablet) 10 mg PO DAILY [facility]; Protocol Last Admin: 01/23/24 10:58 Dose: 10 mg Documented By: YOANDY Senna (Sennosides 8.6 Mg Tablet) 17.2 mg PO DAILY PRN PRN Reason: constipation Sodium Chloride (0.9 % Sodium Chloride Flush 3 Ml Syringe) 3 ml IVFLUSH QSHIFT [facility] Last Admin: 01/23/24 08:02 Dose: 3 ml Documented By: YOANDY Sodium Chloride (Sodium Chloride Tab 1 Gm Tablet) 1 gm PO BID [facility] Last Admin: 01/23/24 10:58 Dose: 1 gm Documented By: YOANDY Vitamin D (Cholecalciferol (Vitamin D3) 25 Mcg Tablet) 50 mcg PO DAILY [facility] Last Admin: 01/23/24 10:57 Dose: 50 mcg Documented By: YOANDY Labs 01/23/24 Unknown 01/23/24 10:34 Labs: Laboratory Results - last 24 hr 01/22/24 01/22/24 01/23/24 16:01 19:55 07:25 MCV MCH MCHC RDW Plt Count MPV Immature Gran % (Auto) Neut % (Auto) Lymph % (Auto) Miller % (Auto) Eos % (Auto) Baso % (Auto) Lymph # (Auto) Miller # (Auto) Eos # (Auto) Baso # (Auto) Abs Immat Gran (auto) Absolute Neuts (auto) Absolute Nucleated RBC Nucleated RBC % (auto) Smear Tech's Comments Hold Purple Top O2 Saturation ABG pH at Pt Temp ABG pCO2 at Pt Temp ABG pO2 at Pt Temp ABG HCO3 ABG Base Excess (Actual) Anion Gap Estim Creat Clear Calc Estimated GFR POC Glucose 147 H 210 H 167 H Random Glucose Calcium 01/23/24 01/23/24 01/23/24 10:34 11:29 12:40 MCV MCH MCHC RDW Plt Count MPV Immature Gran % (Auto) Neut % (Auto) Lymph % (Auto) Miller % (Auto) Eos % (Auto) Baso % (Auto) Lymph # (Auto) Miller # (Auto) Eos # (Auto) Baso # (Auto) Abs Immat Gran (auto) Absolute Neuts (auto) Absolute Nucleated RBC Nucleated RBC % (auto) Smear Tech's Comments Hold Purple Top O2 Saturation 93.0 ABG pH at Pt Temp 7.51 H ABG pCO2 at Pt Temp 31 L ABG pO2 at Pt Temp 71 L ABG HCO3 25 ABG Base Excess (Actual) 3.0 Anion Gap 10 L Estim Creat Clear Calc 84.1 Estimated GFR > 60 POC Glucose 210 H Random Glucose 246 H Calcium 8.9 01/23/24 Unknown MCV 85.9 MCH 29.1 MCHC 33.9 RDW 16.3 H Plt Count 145 L MPV 10.9 Immature Gran % (Auto) 0.3 Neut % (Auto) 66.0 Lymph % (Auto) 8.8 L Miller % (Auto) 24.7 H Eos % (Auto) 0.1 Baso % (Auto) 0.1 Lymph # (Auto) 0.8 L Miller # (Auto) 2.2 H Eos # (Auto) 0.0 Baso # (Auto) 0.0 Abs Immat Gran (auto) 0.03 Absolute Neuts (auto) 5.8 Absolute Nucleated RBC 0.000 Nucleated RBC % (auto) 0.0 Smear Tech's Comments VERIFIED Hold Purple Top SEE NOTE O2 Saturation ABG pH at Pt Temp ABG pCO2 at Pt Temp ABG pO2 at Pt Temp ABG HCO3 ABG Base Excess (Actual) Anion Gap Estim Creat Clear Calc Estimated GFR POC Glucose Random Glucose Calcium Assessment and Plan (1) Fracture of femoral neck, left, closed: Status: Acute Plan 69-year-old male with history of parkinsonism, CKD stage 3, tardive dyskinesia, schizophrenia, type 2 diabetes, diabetic polyneuropathy, hypertension, hyperlipidemia, coronary artery disease, and COPD admitted for further management of L hip fracture #L hip fracture -s/p surgical repair 01/21 -pain control, ASA for DVT prophylaxis -pain management prn #CKD stage 3 -renal function baseline #Type 2 diabetes -dose adjusted basal insulin -POC glucose, diabetic diet. NPO -Humalog on sliding scale # diabetic polyneuropathy -continue gabapentin # COPD -no exacerbation, continue home inhalers, albuterol p.r.n. -he is hyperventilating but doesn't appear uncomfortable, O2 sat normal, get ABG, CXR # CAD/HLD ASA. Continue statin, beta-murtaza #Parkinsonism -no meds #Unspecified cognitive impairment with mood disorder -continue home meds dvt prophylaxis- SCPs, high dose ASA somnolence--he's been sleeping most of the he wakes wwith sternal rub, vitals are ok, he moves all limbs purposefully, he take multiple Psych meds which have been on hold, narcotics on hold. ABG show no CO2 retention. but elevated Ph.. Will repeat ABG and get a CT of the hea, also check ammonia level Full code FEDE- Halley Cancel [phone], need for inpatient: need for inpatient, hip fracture that need repair by surgeon Quality Stroke Does the patient have a stroke diagnosis?: No VTE Prior VTE?: No VTE Risk Level:: Medical - moderate - high VTE Device Contraindication: N/A - Device Ordered VTE Drug Contraindication: Treatment Not Indicated
--- NOTE | 2024-01-23 13:46 | MHC.CM.PN ---
Patient not medically cleared for dc, somnolent at this time. DBV updated. CM will continue to follow.
[2024-01-23 16:06] LABS: Glucose, Whole Blood 167 mg/dL (60-115)
--- NOTE | 2024-01-23 18:26 | PC.NURSE ---
Pt somnolent most of shift. Wakes up briefly with stimulation and falls back asleep. Did wake up to eat breakfast and take meds but not alert enough to eat lunch and dinner. VSS. o2 sat94% on r/a. Moves all exremities. Able to assist patient to chair 2 assist. ABG's done and reported to MD. Has had no narcotic pain medication since 529. To hold sedating meds per MD. Still somnolent this evening. Dr. Daley ordered repeat ABG's, CT head and ammonia level.
[2024-01-23 18:57] LABS: Ammonia 31 umol/L (13-55)
[2024-01-23 19:43] LABS: ABG HCO3 31 mmol/L (22-26); ABG pCO2 38 mmHg (32-45); ABG pH 7.51 (7.35-7.45); ABG pO2 41 mmHg (83-108)
[2024-01-23 19:58] LABS: Glucose, Whole Blood 150 mg/dL (60-115)
[2024-01-23 20:21] LABS: ABG Refer to POC result
[2024-01-23 20:21] LABS: ABG Refer to POC result
--- NOTE | 2024-01-23 21:50 | PC.NURSE ---
1954 Pt had ABG'S done and his P02 was 41. notified.
[2024-01-23] MEDS: Enoxaparin Sodium 40 MG/0.4 ML SYRINGE SUBCUT (22:40)
[2024-01-24] VITALS (10 sets, daily range): BP systolic 133–161; BP diastolic 14–74; PULSE 55–89; RESP 13–18; TEMP 36.1–36.8; O2SAT 92–97
[2024-01-24] MEDS: Omeprazole 20 MG CAPSULE.DR PO (05:54)
[2024-01-24] MEDS: Fluticasone/Umeclidinium/Vilanterol 100/62.5/25 BLST.W.DEV 1 PUFF INHALE (07:35)
[2024-01-24] MEDS: Albuterol/Iprat 2.5/0.5MG 3 ML AMPUL.NEB INHALE ×2 (07:35→19:16)
[2024-01-24 07:46] LABS: Glucose, Whole Blood 162 mg/dL (60-115)
[2024-01-24] MEDS: Aspirin Enteric Coated 81 MG TABLET.DR PO (08:40)
[2024-01-24] MEDS: Sodium Chloride Tab 1 GM TABLET PO ×2 (08:40→19:59)
[2024-01-24] MEDS: Benztropine Mesylate 1 MG TABLET 2 MG PO ×3 (08:40→19:59)
[2024-01-24] MEDS: Insulin Glargine,Hum.rec.anlog 100 UNIT/ML 10 ML VIAL 7 UNIT SUBCUT (08:41)
[2024-01-24] MEDS: Cholecalciferol (Vitamin D3) 25 MCG TABLET 50 MCG PO (08:41)
[2024-01-24] MEDS: Insulin Lispro 100 UNIT/ML 3 ML VIAL SUBCUT ×2 (08:41→11:50)
[2024-01-24] MEDS: amLODIPine Besylate 10 MG TABLET PO (08:41)
[2024-01-24] MEDS: Propranolol HCL 10 MG TABLET PO (08:41)
[2024-01-24] MEDS: Docusate Sodium 100 MG CAPSULE PO (08:42)
[2024-01-24] MEDS: 0.9 % Sodium Chloride Flush 3 ML SYRINGE IVFLUSH ×2 (08:42→19:35)
[2024-01-24 10:48] LABS: Glucose, Whole Blood 208 mg/dL (60-115)
--- NOTE | 2024-01-24 10:48 | HO.PM.IMPN ---
Subjective Subjective Date of Service: 01/24/24 Interval History: mental status improved Physical Exam Vital Signs: Vital Signs: Last Vital Signs Temp 97.8 F 01/24/24 07:26 Pulse 87 01/24/24 08:41 Resp 18 01/24/24 07:37 BP 151/73 H 01/24/24 08:41 Pulse Ox 94 01/24/24 07:26 O2 Del Method Room Air 01/24/24 07:26 O2 Flow Rate 2 01/21/24 19:09 BMI result Body Mass Index 20.9 alert, confused, no acute distress Objective Data Active Medications Acetaminophen (Acetaminophen 325 Mg Tablet) 650 mg PO Q6H PRN PRN Reason: Pain, Mild (Pain Scale 1-3), fever or headache Albuterol Sulfate (Albuterol Sulfate 90 Mcg 8 Gm Inhaler) 2 puff INHALE Q4H PRN PRN Reason: shortness of breath or wheezing Albuterol/Ipratropium (Albuterol/Iprat 2.5/0.5mg 3 Ml Ampul.Neb) 3 ml INHALE RBID [facility] Last Admin: 01/24/24 07:35 Dose: 3 ml Documented By: SANJU Amlodipine Besylate (Amlodipine Besylate 10 Mg Tablet) 10 mg PO DAILY [facility]; Protocol Last Admin: 01/24/24 08:41 Dose: 10 mg Documented By: ROMEO Aspirin (Aspirin Enteric Coated 81 Mg Tablet.Dr) 81 mg PO DAILY [facility] Last Admin: 01/24/24 08:40 Dose: 81 mg Documented By: ROMEO Atorvastatin Calcium (Atorvastatin Calcium 10 Mg Tablet) 10 mg PO BEDTIME [facility] Last Admin: 01/23/24 20:57 Dose: Not Given Documented By: JASON Non-Admin Reason: pt too sleepy Benztropine Mesylate (Benztropine Mesylate 1 Mg Tablet) 2 mg PO TID [facility] Last Admin: 01/24/24 08:40 Dose: 2 mg Documented By: ROMEO Calcium Carbonate (Calcium Carbonate 750 Mg Tab.Chew) 750 mg PO Q4H PRN PRN Reason: Heartburn Divalproex Sodium (Divalproex Sodium Er 500 Mg Tab.Er.24h) 1,500 mg PO BEDTIME [facility] Last Admin: 01/23/24 20:58 Dose: Not Given Documented By: JASON Non-Admin Reason: pt too sleepy Docusate Sodium (Docusate Sodium 100 Mg Capsule) 100 mg PO DAILY [facility] Last Admin: 01/24/24 08:42 Dose: 100 mg Documented By: ROMEO Enoxaparin Sodium (Enoxaparin Sodium 40 Mg/0.4 Ml Syringe) 40 mg SUBCUT Q24H [facility] Last Admin: 01/23/24 22:40 Dose: 40 mg Documented By: JASON Fluoxetine HCl (Fluoxetine Hcl 20 Mg Capsule) 20 mg PO DAILY [facility] Last Admin: 01/24/24 08:43 Dose: Not Given Documented By: ROMEO Non-Admin Reason: Physician Held Med Fluticasone/Umeclidinium/Vilanterol (Fluticasone/Umeclidinium/Vilanterol 100/62.5/25 Blst.W.Dev) 1 puff INHALE RDAILY [facility] Last Admin: 01/24/24 07:35 Dose: 1 puff Documented By: SANJU Gabapentin (Gabapentin 600 Mg Tablet) 600 mg PO BEDTIME [facility] Last Admin: 01/23/24 20:57 Dose: Not Given Documented By: JASON Non-Admin Reason: pt too sleepy Gabapentin (Gabapentin 300 Mg Capsule) 300 mg PO DAILY [facility] Last Admin: 01/23/24 10:58 Dose: 300 mg Documented By: YOANDY Glucose (Glucose Gel 15 Gm Gel..Gram.) 15 gm PO Q15M PRN; Protocol PRN Reason: per Hypoglycemia Standing Ord. Hydrocortisone (Hydrocortisone 1 % Cream 28.35 Gm Tube) 1 appl TOPICAL DAILY PRN PRN Reason: immflamation Dextrose (D10) 250 mls @ 750 mls/hr IV Q15M PRN; Protocol PRN Reason: per Hypoglycemia Standing Ord. Cefazolin Sodium/Dextrose (Ancef) 2 gm in 50 mls @ 100 mls/hr IV POSTOP [facility] Insulin Glargine (Insulin Glargine,Hum.Rec.Anlog 100 Unit/Ml 10 Ml Vial) 7 unit SUBCUT DAILY [facility] Last Admin: 01/24/24 08:41 Dose: 7 unit Documented By: ROMEO Insulin Human Lispro (Insulin Lispro 100 Unit/Ml 3 Ml Vial) 0 unit SUBCUT QIDACHS [facility]; Protocol Last Admin: 01/24/24 08:41 Dose: 2 unit Documented By: ROMEO Magnesium Hydroxide (Milk Of Magnesia 30 Ml Oral.Susp) 30 ml PO DAILY PRN PRN Reason: Constipation Morphine Sulfate (Morphine Sulfate 4 Mg/Ml Cartridge) 2 mg IVPUSH Q4H PRN; Protocol PRN Reason: Pain, Severe (Pain Scale 7-10) Last Admin: 01/22/24 13:19 Dose: 2 mg Non-Formulary Medication (Dulaglutide [Trulicity]) 0.75 mg SUBCUT FR@0900 [facility] Olanzapine (Olanzapine 10 Mg Tablet) 10 mg PO DAILY [facility] Last Admin: 01/23/24 10:58 Dose: 10 mg Documented By: YOANDY Olanzapine (Olanzapine 10 Mg Tablet) 20 mg PO BEDTIME [facility] Last Admin: 01/23/24 20:58 Dose: Not Given Documented By: JASON Non-Admin Reason: pt too sleepy Omeprazole (Omeprazole 20 Mg Capsule.Dr) 20 mg PO DAILY@0630 [facility] Last Admin: 01/24/24 05:54 Dose: 20 mg Documented By: JASON Ondansetron HCl (Ondansetron Hcl 4 Mg/2 Ml Vial) 4 mg IVPUSH Q8H PRN PRN Reason: Nausea and Vomiting Propranolol HCl (Propranolol Hcl 20 Mg Tablet) 20 mg PO BEDTIME [facility]; Protocol Last Admin: 01/23/24 20:58 Dose: Not Given Documented By: JASON Non-Admin Reason: pt too sleepy Propranolol HCl (Propranolol Hcl 10 Mg Tablet) 10 mg PO DAILY [facility]; Protocol Last Admin: 01/24/24 08:41 Dose: 10 mg Documented By: ROMEO Senna (Sennosides 8.6 Mg Tablet) 17.2 mg PO DAILY PRN PRN Reason: constipation Sodium Chloride (0.9 % Sodium Chloride Flush 3 Ml Syringe) 3 ml IVFLUSH QSHIFT [facility] Last Admin: 01/24/24 08:42 Dose: 3 ml Documented By: ROMEO Sodium Chloride (Sodium Chloride Tab 1 Gm Tablet) 1 gm PO BID [facility] Last Admin: 01/24/24 08:40 Dose: 1 gm Documented By: ROMEO Vitamin D (Cholecalciferol (Vitamin D3) 25 Mcg Tablet) 50 mcg PO DAILY [facility] Last Admin: 01/24/24 08:41 Dose: 50 mcg Documented By: ROMEO Labs 01/23/24 Unknown 01/23/24 10:34 Labs: Laboratory Results - last 24 hr 01/23/24 01/23/24 01/23/24 10:34 11:29 12:40 O2 Saturation 93.0 ABG pH at Pt Temp 7.51 H ABG pCO2 at Pt Temp 31 L ABG pO2 at Pt Temp 71 L ABG HCO3 25 ABG Base Excess (Actual) 3.0 Anion Gap 10 L Estim Creat Clear Calc 84.1 Estimated GFR > 60 POC Glucose 210 H Random Glucose 246 H Calcium 8.9 Ammonia 01/23/24 01/23/24 01/23/24 15:57 18:35 19:35 O2 Saturation 64.0 ABG pH at Pt Temp 7.51 H ABG pCO2 at Pt Temp 38 ABG pO2 at Pt Temp 41 L* ABG HCO3 31 H ABG Base Excess (Actual) 8.0 Anion Gap Estim Creat Clear Calc Estimated GFR POC Glucose 167 H Random Glucose Calcium Ammonia 31 01/23/24 01/24/24 19:54 07:43 O2 Saturation ABG pH at Pt Temp ABG pCO2 at Pt Temp ABG pO2 at Pt Temp ABG HCO3 ABG Base Excess (Actual) Anion Gap Estim Creat Clear Calc Estimated GFR POC Glucose 150 H 162 H Random Glucose Calcium Ammonia Assessment and Plan (1) Fracture of femoral neck, left, closed: Status: Acute Plan 69-year-old male with history of parkinsonism, CKD stage 3, tardive dyskinesia, schizophrenia, type 2 diabetes, diabetic polyneuropathy, hypertension, hyperlipidemia, coronary artery disease, and COPD admitted for further management of L hip fracture L hip fracture s/p surgical repair 01/21 pain control, ASA for DVT prophylaxis pain management prn CKD stage 3 renal function baseline Type 2 diabetes dose adjusted basal insulin POC glucose, diabetic diet. NPO Humalog on sliding scale diabetic polyneuropathy continue gabapentin COPD no exacerbation, continue home inhalers, albuterol p.r.n. CAD/HLD ASA. Continue statin, beta-murtaza Parkinsonism no meds Unspecified cognitive impairment with mood disorder continue home meds acute toxic metabolic encephalopathy likely acute hospital delerium improving, holding sedative meds, monitor today dvt prophylaxis- SCPs, high dose ASA Full code HCP- Halley Dejesus [phone], reason for continued hospitalization:monitoring mental status, titrating meds Quality Stroke Does the patient have a stroke diagnosis?: No VTE Prior VTE?: No VTE Risk Level:: Medical - moderate - high VTE Device Contraindication: N/A - Device Ordered VTE Drug Contraindication: Treatment Not Indicated
--- NOTE | 2024-01-24 13:34 | P.PNOP_ITS ---
Subjective Subjective Date of Service: 01/24/24 Interval history: s/p left hip hemiarthroplasty from 01/22/24 Patient resting comfortably in bed Removed Aquacel dressing Pain appears to be managed - In no acute distress Physical Exam Vital Signs: Vital Signs: Last Vital Signs Temp 98.2 F 01/24/24 12:00 Pulse 84 01/24/24 12:00 Resp 18 01/24/24 12:00 BP 155/74 H 01/24/24 12:00 Pulse Ox 97 01/24/24 12:00 O2 Del Method Room Air 01/24/24 12:00 O2 Flow Rate 2 01/21/24 19:09 BMI result Body Mass Index 20.9 Const: General: cooperative, healthy appearing and no acute distress Resp: Effort & Inspection: normal respiratory effort and able to speak in complete sentences Cardio: Rate: regular rate Peripheral pulses: Peripheral pulses 2+ throughout GI: Palpation (GI): Soft to palpation Skin: Lesions: no lesions Rashes: no rashes Extrem: Other: Left hip incision site is c/d/i. Hank intact. No surrounding erythema or drainage. NVI. Procedures Date of Service Date of Service: 01/24/24 Progress Note: A&P Assessment and plan (1) Fracture of femoral neck, left, closed: Status: Acute Assessment and Plan: * Continue pain mgmnt * New Aquacel dressing placed * Continue Aspirin for dvt ppx * Continue PT/OT for LT hip brad * Dispo planning-Pending PT eval, pain mgmnt, rehab placement Time Spent With Patient Time: Total time managing care of this patient today ____ minutes. Quality Stroke Does the patient have a stroke diagnosis?: No VTE Prior VTE?: No VTE Risk Level:: Medical - moderate - high VTE Device Contraindication: N/A - Device Ordered VTE Drug Contraindication: Treatment Not Indicated
[2024-01-24 16:06] LABS: Glucose, Whole Blood 114 mg/dL (60-115)
[2024-01-24] MEDS: Atorvastatin Calcium 10 MG TABLET PO (19:59)
[2024-01-24] MEDS: Propranolol HCL 20 MG TABLET PO (19:59)
[2024-01-24 20:01] LABS: Glucose, Whole Blood 137 mg/dL (60-115)
[2024-01-24] MEDS: Acetaminophen 325 MG TABLET 650 MG PO (21:19)
[2024-01-24] MEDS: Enoxaparin Sodium 40 MG/0.4 ML SYRINGE SUBCUT (22:23)
[2024-01-25 03:51] VITALS: BP 151/74; PULSE 78; RESP 16; TEMP 36.3; O2SAT 96
[2024-01-25] MEDS: Acetaminophen 325 MG TABLET 650 MG PO (05:36)
[2024-01-25] MEDS: Omeprazole 20 MG CAPSULE.DR PO (05:37)
[2024-01-25] MEDS: Fluticasone/Umeclidinium/Vilanterol 100/62.5/25 BLST.W.DEV 1 PUFF INHALE (07:12)
[2024-01-25] MEDS: Albuterol/Iprat 2.5/0.5MG 3 ML AMPUL.NEB INHALE (07:12)
[2024-01-25 07:14] VITALS: PULSE 78; RESP 16; O2SAT 96
[2024-01-25 07:25] LABS: Glucose, Whole Blood 172 mg/dL (60-115)
[2024-01-25 07:31] VITALS: BP 151/74; PULSE 70; RESP 17; TEMP 36.6; O2SAT 97
[2024-01-25 07:39] LABS: Glucose, Whole Blood 154 mg/dL (60-115)
[2024-01-25] MEDS: Insulin Lispro 100 UNIT/ML 3 ML VIAL SUBCUT (07:55)
[2024-01-25] MEDS: Cholecalciferol (Vitamin D3) 25 MCG TABLET 50 MCG PO (07:55)
[2024-01-25] MEDS: Insulin Glargine,Hum.rec.anlog 100 UNIT/ML 10 ML VIAL 7 UNIT SUBCUT (07:55)
[2024-01-25 07:56] VITALS: BP 151/74; PULSE 70
[2024-01-25] MEDS: amLODIPine Besylate 10 MG TABLET PO (07:56)
[2024-01-25] MEDS: Docusate Sodium 100 MG CAPSULE PO (07:56)
[2024-01-25] MEDS: Sodium Chloride Tab 1 GM TABLET PO (07:56)
[2024-01-25] MEDS: Benztropine Mesylate 1 MG TABLET 2 MG PO (07:56)
[2024-01-25] MEDS: Aspirin Enteric Coated 81 MG TABLET.DR PO (07:56)
[2024-01-25] MEDS: FLUoxetine HCl 20 MG CAPSULE PO (07:56)
[2024-01-25] MEDS: Propranolol HCL 10 MG TABLET PO (07:56)
[2024-01-25] MEDS: 0.9 % Sodium Chloride Flush 3 ML SYRINGE IVFLUSH (07:57)
--- NOTE | 2024-01-25 10:19 | PM.DS ---
DS: Providers Provider Date of Service: 01/25/24 Date of admission: 01/20/24 12:01 Primary care physician: Nicholas Rashid [facility] DS: Diagnosis Discharge Diagnosis (1) Fracture of femoral neck, left, closed: Status: Acute DS: Summary Hospital Course Hospital Course: Chief Complaint: fall 69-year-old male with history of parkinsonism, CKD stage 3, tardive dyskinesia, schizophrenia, type 2 diabetes, diabetic polyneuropathy, hypertension, hyperlipidemia, coronary artery disease, and COPD presented to the ED via EMS from [facility] after an unwitnessed fall. skilled nursing staff member, Gayla, reports that the patient got out of bed and was coming to get his medications when he sustained fall that was unwitnessed. However, staff did hear the fall and called EMS for further assistance. Per Gayla, patient is disoriented at baseline and provides limited history. No known history of arrhythmia. He has been progressively unsteady on his feet and ambulates with a walker at baseline. On arrival to the ED, vital signs are stable. He has a chronic normocytic anemia with H/H 11.5/34.4%. Renal function baseline, electrolyte levels normal. Urinalysis negative. Head CT negative for acute intracranial abnormality and CT of the cervical spine is negative for any acute osseous abnormality but shows multilevel degenerative changes. Chest x-ray shows bilateral lower lobe atelectasis, otherwise unremarkable. There is no leukocytosis. X-ray of the left hip/pelvis shows basicervical/transcervical left femoral neck fracture with prominent varus angulation and degenerative arthropathy of the bilateral femoral acetabular joints and lumbosacral spine. Since arrival to the ED, has been given 30 mg IV ketorolac. Hospital course: Patient was admitted and underwent suscesful hip repair and recovery well after surgery. He will be on lovenox for DVT prevention and will go to short term rehab to speed recover for less than 30days. Post op CBC have been unremarkable. Course was complicated by acute toxic metabolic encephalopathy due to hospital delirium. His olanzapine and gabapentin were held and mental status returned to baseline. We will hold off on these medications on discharge but may need to be titrated back on as-needed. His CKD 3 remained at baseline for diabetes was continued on insulin. For COPD remained stable. For coronary disease he was continue aspirin statin. For Parkinson's patient is not on any meds. Patient is medically stable will be discharged to detention facility. Time Attestation Discharge Coordination Time (in mins): 35 Quality: Safe Use of Opioids Does Pt have an Active Cancer Diagnosis on the Problem List?: No Quality: Stroke Does the patient have a stroke diagnosis?: No Physical Exam Vital Signs: Vital Signs: Last Vital Signs Temp 97.8 F 01/25/24 07:31 Pulse 70 01/25/24 07:56 Resp 17 01/25/24 07:31 BP 151/74 H 01/25/24 07:56 Pulse Ox 97 01/25/24 07:31 O2 Del Method Room Air 01/25/24 07:31 O2 Flow Rate 2 01/21/24 19:09 BMI result Body Mass Index 20.9 Const: General: cooperative, healthy appearing and no acute distress Resp: Effort & Inspection: normal respiratory effort and able to speak in complete sentences Cardio: Rate: regular rate Peripheral pulses: Peripheral pulses 2+ throughout GI: Palpation (GI): Soft to palpation Skin: Lesions: no lesions Rashes: no rashes Extrem: Other: Left hip incision site is c/d/i. Hank intact. No surrounding erythema or drainage. NVI. DS: Data Data Completed and Pending Pending studies at discharge: Pending at discharge 01/21/24 18:11 Surgical [PTH] Routine Labs on day of discharge: Laboratory Results - last 24 hr 01/24/24 01/24/24 01/24/24 10:45 16:02 19:58 POC Glucose 208 H 114 137 H 01/25/24 01/25/24 07:12 07:34 POC Glucose 172 H 154 H Discharge Plan Discharge Anticipated Discharge Date/Time: 01/23/24 11:52 Patient Disposition: Xfer SNF Discharge Diagnosis: Hip fracture Referrals: Nicholas Rashid FNP-BC [Primary Care Provider] - 1 Week Familia Taylor PA-C [Physician Natural [employer] Inspector] - 2 Weeks (02/04/24 10:00 [facility] Familia Taylor PA-C ) Discharge Medications: New enoxaparin 40 mg/0.4 mL Syringe 40 mg subcut Q24H Qty: 0 0RF Continued (DME) blood-glucose meter [FreeStyle Lite Meter] Kit See Rx Instructions .ROUTE .MEDSUPPLY Qty: 1 0RF Rx Instructions: As directed sennosides 8.6 mg tablet 17.2 mg PO DAILY PRN (Reason: constipation) Qty: 60 2RF insulin degludec [Tresiba FlexTouch U-100] 100 unit/mL (3 mL) insulin pen 10 unit subcut DAILY Qty: 15 1RF Trulicity 0.75 mg/0.5 mL pen injector 0.75 mg subcut FR@0900 Qty: 6 1RF amlodipine 10 mg tablet 10 mg PO DAILY 90 Days Qty: 90 1RF (DME) FreeStyle Lite Strips Strip See Rx Instructions .Route Qty: 100 0RF Rx Instructions: Use to check blood sugar once a day atorvastatin 10 mg tablet 10 mg PO BEDTIME Qty: 90 1RF (DME) pen needle, diabetic [BD Ultra-Fine Mini Pen Needle] 31 gauge x 3/16 needle See Rx Instructions subcut TID Qty: 100 1RF Rx Instructions: As directed to inject insulin daily acetaminophen [Tylenol 8 Hour] 650 mg tablet extended release 650 mg PO Q6H PRN (Reason: pain) 30 Days Qty: 120 0RF sodium chloride 1,000 mg tablet,soluble 1,000 mg PO BID Qty: 60 2RF aspirin [Adult Low Dose Aspirin] 81 mg tablet,delayed release (DR/EC) 81 mg PO DAILY Qty: 90 1RF cholecalciferol (vitamin D3) 50 mcg (2,000 unit) tablet 50 mcg PO DAILY Qty: 90 1RF propranolol 20 mg tablet 20 mg PO BEDTIME fluoxetine 20 mg capsule 20 mg PO DAILY albuterol sulfate 90 mcg/actuation aerosol powdr breath activated 2 inh inhalation Q4H PRN (Reason: shortness of breath or wheezing) docusate sodium 100 mg capsule 100 mg PO DAILY omeprazole 20 mg capsule,delayed release(DR/EC) 20 mg PO DAILY@0630 vitamin E 1,150 unit/1.25 mL liquid 1,000 unit PO DAILY divalproex 500 mg tablet extended release 24 hr 1,500 mg PO BEDTIME ipratropium-albuterol 0.5 mg-3 mg(2.5 mg base)/3 mL solution for nebulization 3 ml inhalation BID 30 Days Qty: 180 11RF Trelegy Ellipta 100-62.5-25 mcg blister with device 1 inh inhalation DAILY 30 Days Qty: 60 11RF propranolol 10 mg tablet 10 mg PO DAILY hydrocortisone 2.5 % cream 1 appl topical DAILY PRN (Reason: immflamation) (DME) nebulizers Misc See Rx Instructions .Route Rx Instructions: As directed benztropine 2 mg tablet 2 mg PO TID Discontinued gabapentin 600 mg Tablet 600 mg PO BEDTIME gabapentin 300 mg capsule 300 mg PO DAILY Rx Instructions: 600mg in PM olanzapine 20 mg tablet 20 mg PO BEDTIME olanzapine 10 mg tablet 10 mg PO DAILY Discharge Orders: Discharge Order (Routine); Ordered 01/23/24 Ordered By: Ozzy Daley Diet: Advance to usual diet Activity on Discharge: As tolerated Stand Alone Forms: Patient Portal Discharge page Print Language: Tristanian Care Plan Goals: recovery from hip fracture Health Concerns: hip fracture Plan of Treatment: to short term rehab for less than 30 days for recovery from hip fracture Physical Therapy for left brad hip arthroplasty: wbat, gait training, ROM, strength Limit stair climbing No showering, no tub bath-keep dressing clean, dry and intact No driving x6 weeks Continue Aspirin twice a day x 6 weeks Follow up with [facility] in 2 weeks: Assessment: see above
[2024-01-25 11:40] LABS: Glucose, Whole Blood 117 mg/dL (60-115)
--- NOTE | 2024-01-25 11:59 | MHC.CM.PN ---
PT CLEARED TO DC TO [facility] TODAY PT WILL DC TO [facility] AT 1430 HOURS VIA [facility] PER NOTES. PT SPEAKS FOR HIMSELF, PT AWARE OF DC ALSO NOTIFIED STAFF AT [phone]
--- NOTE | 2024-03-14 05:51 | PC.NURSE ---
late entry; 01/21/242031. morphine given for pain 4/10 nonverbal pain scale. note; morphine given for pre position change/hygiene on nonverbal, confused post op pt.
== END 2024-01-25 14:42 | disposition skilled nursing facility (03) | DRG 521 ==
LOC: HO.ED 12:11 → HO.EDOVER 12:22 → HO.S3 18:11
PROVIDERS: Internal Medicine; Orthopaedic Surgery; Physician Assistant Medical; Admitting Provider Physician Assistant; Emergency Provider Emergency Medicine; PCP Nurse Practitioner Family; Visit Provider Internal Medicine
PROC: 0SRS0J9 Replacement of Left Hip Joint, Femoral Surface with Synthetic Substitute, Cemented, Open Approach (ICD-10-PCS; CPT 27125; principal; 2024-01-21 16:00)
DX: S72.032A Displaced midcervical fracture of left femur, initial encounter for closed fracture (principal); G92.8 Other toxic encephalopathy; W19.XXXA Unspecified fall, initial encounter; I12.9 Hypertensive chronic kidney disease with stage 1 through stage 4 chronic kidney disease, or unspecified chronic kidney disease; N18.30 Chronic kidney disease, stage 3 unspecified; R41.9 Unspecified symptoms and signs involving cognitive functions and awareness; E11.42 Type 2 diabetes mellitus with diabetic polyneuropathy; I25.10 Atherosclerotic heart disease of native coronary artery without angina pectoris; E78.5 Hyperlipidemia, unspecified; F39 Unspecified mood [affective] disorder; E11.22 Type 2 diabetes mellitus with diabetic chronic kidney disease; J43.2 Centrilobular emphysema; G20.A1 Parkinson's disease without dyskinesia, without mention of fluctuations; D63.1 Anemia in chronic kidney disease; Z79.51 Long term (current) use of inhaled steroids; Z79.4 Long term (current) use of insulin; Z79.899 Other long term (current) drug therapy
CPT/HCPCS: 36415; 36600; 70450; 71045; 72125; 72170; 73502; 80048; 80053; 81001; 82140; 82550; 82803; 82947; 85025; 85027; 85610; 85730; 88305; 88311; 93005; 94640; 97116; 97162; 97166; 99285; C1776; J0690; J1100; J1650; J1885; J2270; J2371; J2405; J2704; J3010; J3370

== ENCOUNTER → 2024-01-20 08:27 | Outpatient (BNV) | payer MEDICARE, MEDICAID, SELFPAY | PROVIDERS: Admitting Provider Physician Assistant; Emergency Provider Emergency Medicine; PCP Nurse Practitioner Family; Visit Provider Internal Medicine Cardiovascular Disease | DX: R94.31 Abnormal electrocardiogram [ECG] [EKG] (principal) | CPT/HCPCS: 93010 ==

== ENCOUNTER → 2024-01-20 12:01 | Outpatient (BNV) | payer MEDICARE, MEDICAID, SELFPAY | PROVIDERS: Admitting Provider Physician Assistant; Emergency Provider Emergency Medicine; PCP Nurse Practitioner Family; Visit Provider Physician Assistant | DX: S72.002A Fracture of unspecified part of neck of left femur, initial encounter for closed fracture (principal) | CPT/HCPCS: 99223; 99232; 99239 ==

== ENCOUNTER → 2024-01-20 12:01 | Outpatient (BNV) | payer MEDICARE, MEDICAID, SELFPAY | PROVIDERS: Admitting Provider Physician Assistant; Emergency Provider Emergency Medicine; PCP Nurse Practitioner Family; Visit Provider Orthopaedic Surgery | DX: S72.002A Fracture of unspecified part of neck of left femur, initial encounter for closed fracture (principal) | CPT/HCPCS: 27236; 99024; 99223 ==

== ENCOUNTER 2024-02-04 08:01 | Outpatient (REF) | payer MEDICARE, MEDICAID, SELFPAY ==
--- NOTE | ~2024-02-04 | XR_ITS ---
EXAMINATION: XR HIP, LEFT CLINICAL INFORMATION: Pain in left hip. COMPARISON: January 20, 2024, January 21, 2024. TECHNIQUE: AP view of the pelvis and 2 views of the left hip. FINDINGS: Degenerative changes in the imaged lower lumbar spine. Oral contrast material in the imaged colon in the right lower quadrant. Mild degenerative changes in the right hip. Left total hip arthroplasty. Hardware appears intact. Expected postsurgical changes adjacent to the left hip with lateral surgical ted. XR/XR hip LT min 2V IMPRESSION: Left total hip arthroplasty. Hardware appears intact. Expected postsurgical changes adjacent to the left hip with lateral surgical ted.
== END 2024-02-04 08:02 | disposition home or self-care (01) ==
LOC: HO.HOSX 08:01
PROVIDERS: Visit Provider Physician Assistant
DX: Z96.642 Presence of left artificial hip joint (principal)
CPT/HCPCS: 73502; 99212

== ENCOUNTER 2024-02-04 09:51 | Outpatient (AMB) | payer MEDICARE, MEDICAID, SELFPAY ==
--- NOTE | 2024-02-04 09:59 | MHC.OFFVIS ---
Intake Visit Reasons: 2wk post op s/p LT hip brad 01/22/24 Intake Note: Armand is a 69 year old male who presents today in a wheel chair for a post operative visit s/p LT hip brad, DOS 01/22/24 with . Patient reports he is doing okay, states having pain/discomfort sometimes. Allergies No Known Allergies Allergy (Mild, Verified 02/04/24 10:32) NOT APPLICABLE Medication List - Last Reconciled 02/04/24 by Familia Taylor PA-C acetaminophen ER (Tylenol 8 Hour) 650 mg PO Q6H PRN 30 days albuterol sulfate 90 mcg/actuation 2 inhalations inhalation Q4H PRN amlodipine 10 mg PO DAILY 90 days aspirin (Adult Low Dose Aspirin) 81 mg PO DAILY atorvastatin 10 mg PO BEDTIME benztropine 2 mg PO TID blood sugar diagnostic (FreeStyle Lite Strips) Use to check blood sugar once a day blood-glucose meter (FreeStyle Lite Meter kit) As directed cholecalciferol (vitamin D3) 50 mcg PO DAILY divalproex ER 1,500 mg PO BEDTIME docusate sodium 100 mg PO DAILY dulaglutide (Trulicity) 0.75 mg (0.5 mL) subcut FR@0900 enoxaparin 40 mg (0.4 mL) subcut Q24H fluoxetine 20 mg PO DAILY [id number]-[id number] 100-62.5-25 mcg (Trelegy Ellipta) 1 inh inhalation DAILY 30 days hydrocortisone 2.5% 1 appl topical DAILY PRN insulin degludec (Tresiba FlexTouch U-100 insulin) 10 units (0.1 mL) subcut DAILY ipratropium-albuterol 0.5 mg-3 mg(2.5 mg base)/3 mL 3 mL inhalation BID 30 days nebulizers As directed omeprazole 20 mg PO DAILY@0630 pen needle, diabetic (BD Ultra-Fine Mini Pen Needle) As directed to inject insulin daily propranolol 10 mg PO DAILY propranolol 20 mg PO BEDTIME sennosides 17.2 mg (2 x 8.6 mg) PO DAILY PRN sodium chloride 1,000 mg PO BID vitamin E 1,000 units PO DAILY HPI HPI 2wk post op s/p LT hip brad 01/22/24: Details: 69-year-old male who returns to the office today on a wheelchair for post-op left hip hemiarthroplasty, 01/22/[address] Roberson. He states he has occasional pain and discomfort in his hip however he is doing well otherwise. He has no other concerns today. [facility] Medical History Tardive dyskinesia Parkinsonism Lives in nursing home Chronic bronchitis Schizophrenia Centrilobular emphysema Essential hypertension Hyperlipidemia LDL goal <70 COPD (chronic obstructive pulmonary disease) Smoker Type 2 diabetes mellitus with diabetic polyneuropathy Multiple pulmonary nodules Surgical History No pertinent past surgical history Family History Father Prostate cancer Diabetes Mother Diabetes Hypertension CVD (cardiovascular disease) Social History Household Members: Other Household Members Other:: From nursing home Housing: Assisted Living Facility Housing Other:: care home Do you presently have visiting nurse or other home services: Yes Unable to assess alcohol history related to: Refusing to respond Alcohol intake: unknown Comment: 1;1 Patient Tobacco Use Status: Tobacco use Unknown Tobacco use type: Cigarette Cigarette Packs Per Day: 4 Cigarettes Per Day: 80 Years Smoked: 40 Advance Directives Date on File: 10/25/22 service: No Current occupational status: disabled Cognitive needs: No Hearing needs: No Vision needs: No Review of Systems Const All systems reviewed & are unremarkable except as noted in HPI and below Physical Exam Extrem Other: Left hip: Incision clean, dry and intact. No redness or drainage. No pain with hip ROM or flexion. Calf supple, nontender. NVI. Results Reviewed Results Reviewed: Xrays were obtained in the office today and personally reviewed by me of the left hip show intact hardware Assessment & Plan Assessment & Plan (1) History of left hip hemiarthroplasty: Code(s): Z96.642 - Presence of left artificial hip joint Category: Surgical Plan [place] removed, steri strips applied. He will continue with PT to continue working on Gait training, ROM and strength. He will increase activities as tolerated. He will f/u in 4 weeks, sooner if needed. Orders: Orders XR hip LT min 2V Today M25.552 - Pain in left hip Patient Instructions: Scribed for Familia Taylor PA-C, by Brian Buchanan medical videographer, on 02/04/2024 at 10:00 AM EST.? I, Familia Taylor PA-C, have personally reviewed and agree with the information entered by the scribe. Coding Level of Care Code Global (94740) Diagnoses History of left hip hemiarthroplasty Z96.642
== END 2024-02-04 10:51 | disposition home or self-care (01) ==
PROVIDERS: PCP Nurse Practitioner Family; Visit Provider Physician Assistant
DX: Z96.642 Presence of left artificial hip joint (principal)
CPT/HCPCS: 99024

== ENCOUNTER 2024-03-15 20:21 | Emergency (ER) | payer MEDICARE, MEDICAID, SELFPAY ==
--- NOTE | ~2024-03-15 | CT_ITS ---
EXAMINATION: CT HEAD WITHOUT CONTRAST CT CERVICAL SPINE WITHOUT CONTRAST CLINICAL INFORMATION: Fall. Pain. COMPARISON: None available. TECHNIQUE: Contiguous axial imaging was performed through the head and cervical spine without intravenous administration of contrast. Sagittal and coronal reformatted images also obtained. This CT examination was performed using dose optimization techniques as appropriate, variously including the following: *Automated exposure control *Adjustment of mA and/or kV according to patient size (this includes techniques or standardized protocols for targeted exams where dose is matched to indication/reason for exam; i.e. extremities or head) *Use of iterative reconstruction technique DLP: 1416 mGy-cm FINDINGS: There is cerebral volume loss with prominence of the lateral and the third ventricles. The cortical sulci are widened appropriately. The fourth ventricle and basal cisterns are normally outlined. There is mild to moderate bilateral periventricular and central white matter diminished attenuation similar to previous. There is no acute territorial defect, hemorrhage or midline shift. The extra-axial spaces are unremarkable. Calvarium/scalp: Intact. Maxillofacial sinuses and mastoids: Clear as visualized. Cervical spine: Motion limits evaluation. There is straightening of the expected cervical spine curvature. There is moderate C6-C7 disc degenerative change and mild disc degenerative change throughout the remaining cervical spine with loss of disc space, endplate and change and posterior osteophyte at C6-C7 associated with diffuse kvif-cq-lwbtqdms facet osteoarthritic hypertrophic change with multilevel mild spinal canal and multilevel bbab-ry-cxiytdck neuroforaminal narrowing. There is no evidence for fracture. The soft tissues are unremarkable. The visualized upper lung lin are clear. CT/CT cervical spine wo IV con IMPRESSION: HEAD: No acute intracranial abnormality. CERVICAL SPINE: Limited by motion No acute cervical spine pathology. Multilevel degenerative changes.
--- NOTE | ~2024-03-15 | CT_ITS ---
EXAMINATION: CT HEAD WITHOUT CONTRAST CT CERVICAL SPINE WITHOUT CONTRAST CLINICAL INFORMATION: Fall. Pain. COMPARISON: None available. TECHNIQUE: Contiguous axial imaging was performed through the head and cervical spine without intravenous administration of contrast. Sagittal and coronal reformatted images also obtained This CT examination was performed using dose optimization techniques as appropriate, variously including the following: *Automated exposure control *Adjustment of mA and/or kV according to patient size (this includes techniques or standardized protocols for targeted exams where dose is matched to indication/reason for exam; i.e. extremities or head) *Use of iterative reconstruction technique DLP: 1039 mGy-cm FINDINGS: There is cerebral volume loss with prominence of the lateral and the third ventricles. The cortical sulci are widened appropriately. The fourth ventricle and basal cisterns are normally outlined. There is mild bilateral periventricular and central white matter diminished attenuation. There is no acute territorial defect, hemorrhage or midline shift. The extra-axial spaces are unremarkable. Calvarium/scalp: Intact. Maxillofacial sinuses and mastoids: Clear as visualized. Cervical spine: There is straightening of the expected cervical spine curvature. There is moderate C6-C7 disc degenerative change and mild degenerative change throughout the remaining cervical spine with loss of disc space, endplate change and posterior osteophytes most pronounced at C6-C7 associated with diffuse pmun-nd-eudxdawi facet osteoarthritic hypertrophic change with mild spinal canal and omvl-uv-ndchrkuf neuroforaminal narrowing. No fracture is seen. The soft tissues are unremarkable. There is upper lung field emphysematous change. CT/CT head/brain wo IV con IMPRESSION: CT HEAD: 1. No acute intracranial process seen. 2. Age-related cerebral volume loss with chronic small vessel ischemic changes. CT CERVICAL SPINE: Straightening of the expected cervical spine curvature. There is moderate C6-C7 disc degenerative changes and mild degenerative change throughout the remaining cervical spine. No acute fracture or dislocation seen.
--- NOTE | ~2024-03-15 | CT_ITS ---
EXAMINATION: CT HEAD WITHOUT CONTRAST CT CERVICAL SPINE WITHOUT CONTRAST CLINICAL INFORMATION: Fall. Pain. COMPARISON: None available. TECHNIQUE: Contiguous axial imaging was performed through the head and cervical spine without intravenous administration of contrast. Sagittal and coronal reformatted images also obtained This CT examination was performed using dose optimization techniques as appropriate, variously including the following: *Automated exposure control *Adjustment of mA and/or kV according to patient size (this includes techniques or standardized protocols for targeted exams where dose is matched to indication/reason for exam; i.e. extremities or head) *Use of iterative reconstruction technique DLP: 1039 mGy-cm FINDINGS: There is cerebral volume loss with prominence of the lateral and the third ventricles. The cortical sulci are widened appropriately. The fourth ventricle and basal cisterns are normally outlined. There is mild bilateral periventricular and central white matter diminished attenuation. There is no acute territorial defect, hemorrhage or midline shift. The extra-axial spaces are unremarkable. Calvarium/scalp: Intact. Maxillofacial sinuses and mastoids: Clear as visualized. Cervical spine: There is straightening of the expected cervical spine curvature. There is moderate C6-C7 disc degenerative change and mild degenerative change throughout the remaining cervical spine with loss of disc space, endplate change and posterior osteophytes most pronounced at C6-C7 associated with diffuse mwkx-fs-bvkswdvx facet osteoarthritic hypertrophic change with mild spinal canal and hmfa-ga-mlrciavy neuroforaminal narrowing. No fracture is seen. The soft tissues are unremarkable. There is upper lung field emphysematous change. CT/CT cervical spine wo IV con IMPRESSION: CT HEAD: 1. No acute intracranial process seen. 2. Age-related cerebral volume loss with chronic small vessel ischemic changes. CT CERVICAL SPINE: Straightening of the expected cervical spine curvature. There is moderate C6-C7 disc degenerative changes and mild degenerative change throughout the remaining cervical spine. No acute fracture or dislocation seen.
--- NOTE | ~2024-03-15 | CT_ITS ---
EXAMINATION: CT HEAD WITHOUT CONTRAST CT CERVICAL SPINE WITHOUT CONTRAST CLINICAL INFORMATION: Fall. Pain. COMPARISON: None available. TECHNIQUE: Contiguous axial imaging was performed through the head and cervical spine without intravenous administration of contrast. Sagittal and coronal reformatted images also obtained. This CT examination was performed using dose optimization techniques as appropriate, variously including the following: *Automated exposure control *Adjustment of mA and/or kV according to patient size (this includes techniques or standardized protocols for targeted exams where dose is matched to indication/reason for exam; i.e. extremities or head) *Use of iterative reconstruction technique DLP: 1416 mGy-cm FINDINGS: There is cerebral volume loss with prominence of the lateral and the third ventricles. The cortical sulci are widened appropriately. The fourth ventricle and basal cisterns are normally outlined. There is mild to moderate bilateral periventricular and central white matter diminished attenuation similar to previous. There is no acute territorial defect, hemorrhage or midline shift. The extra-axial spaces are unremarkable. Calvarium/scalp: Intact. Maxillofacial sinuses and mastoids: Clear as visualized. Cervical spine: Motion limits evaluation. There is straightening of the expected cervical spine curvature. There is moderate C6-C7 disc degenerative change and mild disc degenerative change throughout the remaining cervical spine with loss of disc space, endplate and change and posterior osteophyte at C6-C7 associated with diffuse quch-yc-gubcpkcv facet osteoarthritic hypertrophic change with multilevel mild spinal canal and multilevel sxzp-vb-uknnwvgz neuroforaminal narrowing. There is no evidence for fracture. The soft tissues are unremarkable. The visualized upper lung lin are clear. CT/CT head/brain wo IV con IMPRESSION: HEAD: No acute intracranial abnormality. CERVICAL SPINE: Limited by motion No acute cervical spine pathology. Multilevel degenerative changes.
[2024-03-15 20:37] VITALS: BP 142/80; PULSE 81; O2SAT 96
[2024-03-15 20:38] VITALS: BP 136/81; PULSE 78; RESP 18; TEMP 36.7; O2SAT 97
[2024-03-15 20:43] VITALS: BP 136/81; PULSE 79; RESP 20; TEMP 36.3; O2SAT 97; BMI 21.6
--- NOTE | 2024-03-15 21:10 | ED_ITS ---
HPI - Fall General Chief Complaint: Fall Stated Complaint: FALL WITH HEAD STRIKE + COLLAR Time Seen by Provider: 03/15/24 20:36 Source: EMS Mode of arrival: EMS Limitations: other ( poor historian) History of Present Illness ED Provider: Dr. Aileen Sarah HPI Narrative: Patient comes to the emergency room from a [facility] facility. According to the staff, they reported to EMS that the patient had a mechanical fall. Patient has some skin tears. Patient is not on blood thinners. Patient is a poor historian, however, he denies any neck pain or any headache. Related Data Home Medications ?Medication ?Instructions ?Recorded ?Confirmed divalproex 500 mg tablet,extended 1,500 mg PO BEDTIME 07/16/21 02/04/24 release 24 hr vitamin E 1,150 unit/1.25 mL oral 1,000 unit PO DAILY 01/28/23 01/20/24 liquid hydrocortisone 2.5 % topical cream 1 appl topical DAILY PRN 10/13/23 02/04/24 immflamation nebulizers 10/13/23 12/25/23 propranolol 10 mg tablet 10 mg PO DAILY 10/13/23 02/04/24 propranolol 20 mg tablet 20 mg PO BEDTIME 10/13/23 02/04/24 benztropine 2 mg tablet 2 mg PO TID 11/11/23 01/20/24 albuterol sulfate 90 mcg/actuation 2 inh inhalation Q4H PRN shortness 01/20/24 02/04/24 breath activated powder inhaler of breath or wheezing docusate sodium 100 mg capsule 100 mg PO DAILY constipation 01/20/24 02/04/24 fluoxetine 20 mg capsule 20 mg PO DAILY 01/20/24 02/04/24 omeprazole 20 mg capsule,delayed 20 mg PO DAILY@0630 01/20/24 02/04/24 release Previous Rx's ?Medication ?Instructions ?Recorded blood-glucose meter (FreeStyle #1 ea 05/24/21 Lite Meter kit) sennosides 8.6 mg tablet 17.2 mg (2 x 8.6 mg) PO DAILY PRN 12/05/22 constipation #60 tabs fluticasone fur. 100 mcg-umeclid 1 inh inhalation DAILY 30 days #60 02/06/23 62.5 mcg-vilant 25 mcg ea inhalat.powder (Trelegy Ellipta) ipratropium 0.5 mg-albuterol 3 mg 3 ml inhalation BID 30 days #180 mL 02/06/23 (2.5 mg base)/3 mL nebulization soln insulin degludec 100 unit/mL (3 10 unit (0.1 mL) subcut DAILY #15 03/05/23 mL) subcutaneous pen (Tresiba mL FlexTouch U-100 insulin) dulaglutide 0.75 mg/0.5 mL 0.75 mg (0.5 mL) subcut FR@0900 #6 07/05/23 subcutaneous pen injector mL (Trulicity) amlodipine 10 mg tablet 10 mg PO DAILY 90 days #90 tabs 07/26/23 blood sugar diagnostic (FreeStyle #100 ea 09/23/23 Lite Strips) atorvastatin 10 mg tablet 10 mg PO BEDTIME #90 tabs 10/22/23 pen needle, diabetic 31 gauge x #100 ea 11/04/2310/17 (BD Ultra-Fine Mini Pen Needle) acetaminophen 650 mg 650 mg PO Q6H PRN pain 30 days 12/17/23 tablet,extended release (Tylenol 8 #120 tabs Hour) sodium chloride 1,000 mg soluble 1,000 mg PO BID #60 tabs 01/06/24 tablet aspirin 81 mg tablet,delayed 81 mg PO DAILY #90 tabs 01/16/24 release (Adult Low Dose Aspirin) cholecalciferol (vitamin D3) 50 50 mcg PO DAILY #90 tabs 01/16/24 mcg (2,000 unit) tablet enoxaparin 40 mg/0.4 mL 40 mg (0.4 mL) subcut Q24H #0 mL 01/25/24 subcutaneous syringe Allergies Allergy/AdvReac Type Severity Reaction Status Date / Time No Known Allergies Allergy Mild NOT Verified 03/15/24 20:44 APPLICABLE Review of Systems 2 Review of Systems: Yes Unobtainable due to mental condition PMFSH Past Medical History Medical History Tardive dyskinesia Parkinsonism Lives in nursing home Chronic bronchitis Schizophrenia Centrilobular emphysema Essential hypertension Hyperlipidemia LDL goal <70 COPD (chronic obstructive pulmonary disease) Smoker Type 2 diabetes mellitus with diabetic polyneuropathy Multiple pulmonary nodules Surgical History No pertinent past surgical history Family History Family History Father Prostate cancer Diabetes Mother Diabetes Hypertension CVD (cardiovascular disease) Social History Social History Household Members: Other Household Members Other:: From nursing home Housing: Assisted Living Facility Housing Other:: shelter Do you presently have visiting nurse or other home services: Yes Unable to assess alcohol history related to: Refusing to respond Alcohol intake: unknown Comment: 1;1 Patient Tobacco Use Status: Tobacco use Unknown Tobacco use type: Cigarette Cigarette Packs Per Day: 4 Cigarettes Per Day: 80 Years Smoked: 40 Smoked in Last 30 Days: No Use of substances other than those prescribed or required for medical reasons: No Advance Directives: Yes Advance Directives on File: Yes Advance Directives Date on File: 10/25/22 service: No Current occupational status: disabled Cognitive needs: No Hearing needs: No Vision needs: No Physical Exam 2 Vital Signs: Vital Signs: Last Vital Signs Temp 97.9 F 03/16/24 02:53 Pulse 73 03/16/24 02:53 Resp 18 03/16/24 02:53 BP 155/85 H 03/16/24 02:53 Pulse Ox 98 03/16/24 02:53 O2 Del Method Room Air 03/16/24 02:53 BMI result Body Mass Index 21.6 Const: Other: Appearance: Alert. Does not seem to be in any acute distress. Eyes: Pupils equal, round and reactive to light. ENT: Pharynx normal. Neck: Normal inspection. Neck supple. No lymph nodes noted. No crepitus CVS: Normal heart rate and rhythm. Pulses normal. Normal S1 and S2 Respiratory: No respiratory distress. Breath sounds normal. No Wheezing. No rales Abdomen: Soft and nontender. No rigidity. No distention. Skin: several minor skin tears in bilateral upper extremities Extremities: No lower extremity edema. No Lacerations. No Rash Neuro: moving all extremities, able to follow commands Psych: calm, cooperative Course Course Course Narrative: all of patient's labs and imaging pending Medical Decision Making Medical Decision Making MDM Narrative: My interpretation of labs: Hematology and chemistry at baseline, urinalysis negative for UTI - head CT and cervical spine CT, no acute abnormalities. - Patient remained stable, still poor historian, but states that he feels well - 02:15: Patient had already been discharged, waiting for the ambulance to arrive. - I was informed by the patient's nurse that the patient got out of bed and fell again landing in the back of his head. Patient was assisted back to his bed. Patient has a small abrasion to the back of the head. - Head CT and cervical spine CT being repeated patient is poor historian - sign-out given to my colleague Dr. Cleveland Differential Diagnosis Differential Diagnoses: The differential diagnosis associated with the presentation includes ( subdural hematoma, contusion, concussion, cervical spine injury, skin tears) Admission/Observation Consideration of admission/observation: Escalation of care including admission/observation considered ( given patient's initial presentation and history, observation was considered) Lab Data MDM Lab Attestation statement: I reviewed the patient's lab results. 03/15/24 21:23 03/15/24 21:23 Labs: Lab Results 03/15/24 Range/Units 21:23 WBC 5.3 (4.8-10.8) X10*3/uL RBC 3.86 L (4.60-5.80) X10*6/uL Hgb 11.1 L (14.0-18.0) g/dl Hct 32.6 L (42.0-52.0) % MCV 84.5 (80.0-98.0) fL MCH 28.8 (27.0-33.0) pg MCHC 34.0 (31.0-36.0) g/dl RDW 13.5 (11.0-16.0) % Plt Count 166 (160-400) X10*3/uL MPV 9.9 (9.4-12.4) fL Immature Gran % (Auto) 0.6 H (0.0-0.4) % Neut % (Auto) 51.5 (45-73) % Lymph % (Auto) 23.1 (20-40) % Maverick % (Auto) 21.4 H (2-11) % Eos % (Auto) 2.8 (0-4) % Baso % (Auto) 0.6 (0-2) % Lymph # (Auto) 1.2 (1.2-4.9) X10*3/uL Maverick # (Auto) 1.1 (0.1-1.2) X10*3/uL Eos # (Auto) 0.2 (0.0-0.4) X10*3/uL Baso # (Auto) 0.0 (0.0-0.2) X10*3/uL Abs Immat Gran (auto) 0.03 (0.00-0.03) X10*3/uL Absolute Neuts (auto) 2.7 (2.0-8.3) x10*3/uL Absolute Nucleated RBC 0.000 (0.0-0.012) X10*3/uL Nucleated RBC % (auto) 0.0 (0.0-0.2) /100WBC Smear Tech's Comments VERIFIED Sodium 133 L (135-145) mmol/L Potassium 3.9 (3.3-5.1) mmol/L Chloride 99 (96-108) mmol/L Carbon Dioxide 25 (22-29) mmol/L Anion Gap 13 (12-20) BUN 24 H (9-16) mg/dL Creatinine 1.04 (0.5-1.4) mg/dL Estim Creat Clear Calc 55.9 Estimated GFR > 60 Random Glucose 89 (60-115) mg/dL Calcium 9.1 (8.4-10.2) mg/dL Urine Color Yellow Urine Appearance Clear Urine pH 6.0 (5.0-9.0) Ur Specific [place] 1.020 (1.005-1.025) Urine Protein Trace (Neg-Trace) mg/dL Urine Glucose (UA) Negative (Negative) mg/dL Urine Ketones Trace (Negative) mg/dL Urine Blood Negative (Negative) Urine Nitrite Negative (Negative) Ur Leukocyte Esterase Negative (Negative) Independent Interpretation I performed an independent interpretation of an: CT Scan Radiology Impression Discussion of test interpretation with radiology: I have reviewed the radiologist's reading. Radiologist Impression: FINDINGS: There is cerebral volume loss with prominence of the lateral and the third ventricles. The cortical sulci are widened appropriately. The fourth ventricle and basal cisterns are normally outlined. There is mild to moderate bilateral periventricular and central white matter diminished attenuation similar to previous. There is no acute territorial defect, hemorrhage or midline shift. The extra-axial spaces are unremarkable. Calvarium/scalp: Intact. Maxillofacial sinuses and mastoids: Clear as visualized. Cervical spine: Motion limits evaluation. There is straightening of the expected cervical spine curvature. There is moderate C6-C7 disc degenerative change and mild disc degenerative change throughout the remaining cervical spine with loss of disc space, endplate and change and posterior osteophyte at C6-C7 associated with diffuse htnz-rw-blspyiyz facet osteoarthritic hypertrophic change with multilevel mild spinal canal and multilevel okye-gh-iurpkroo neuroforaminal narrowing. There is no evidence for fracture. The soft tissues are unremarkable. The visualized upper lung lin are clear. CT/CT head/brain wo IV con IMPRESSION: HEAD: No acute intracranial abnormality. CERVICAL SPINE: Limited by motion No acute cervical spine pathology. Multilevel degenerative changes. Independent Historian Clinical information obtained from an independent historian. History obtained from or confirmed by: EMS Critical Care Time Critical Care Time Critical Care Time: Yes Total Critical Care Time: 35 Attestation: I have personally provided critical care time. Time includes review of lab data, radiology results, discussion with consultants, and monitoring for potential decompensation. Intervention performed as documented. Discharge Plan Discharge Clinical Impression: Fall, Contusion, Skin tear of upper extremity Patient Disposition: Xfer SNF Instructions: Fall Prevention for Older Adults (ED) Additional Instructions: Please follow-up with your primary care physician tomorrow. If you have any worsening or new symptoms, please return to the emergency room or call 911 Prescriptions: No Action (DME) blood-glucose meter [FreeStyle Lite Meter] Kit See Rx Instructions .ROUTE .MEDSUPPLY Qty: 1 0RF Rx Instructions: As directed sennosides 8.6 mg tablet 17.2 mg PO DAILY PRN (Reason: constipation) Qty: 60 2RF insulin degludec [Tresiba FlexTouch U-100] 100 unit/mL (3 mL) insulin pen 10 unit subcut DAILY Qty: 15 1RF Trulicity 0.75 mg/0.5 mL pen injector 0.75 mg subcut FR@0900 Qty: 6 1RF amlodipine 10 mg tablet 10 mg PO DAILY 90 Days Qty: 90 1RF (DME) FreeStyle Lite Strips Strip See Rx Instructions .Route Qty: 100 0RF Rx Instructions: Use to check blood sugar once a day atorvastatin 10 mg tablet 10 mg PO BEDTIME Qty: 90 1RF (DME) pen needle, diabetic [BD Ultra-Fine Mini Pen Needle] 31 gauge x 3/16 needle See Rx Instructions subcut TID Qty: 100 1RF Rx Instructions: As directed to inject insulin daily acetaminophen [Tylenol 8 Hour] 650 mg tablet extended release 650 mg PO Q6H PRN (Reason: pain) 30 Days Qty: 120 0RF sodium chloride 1,000 mg tablet,soluble 1,000 mg PO BID Qty: 60 2RF aspirin [Adult Low Dose Aspirin] 81 mg tablet,delayed release (DR/EC) 81 mg PO DAILY Qty: 90 1RF cholecalciferol (vitamin D3) 50 mcg (2,000 unit) tablet 50 mcg PO DAILY Qty: 90 1RF propranolol 20 mg tablet 20 mg PO BEDTIME fluoxetine 20 mg capsule 20 mg PO DAILY albuterol sulfate 90 mcg/actuation aerosol powdr breath activated 2 inh inhalation Q4H PRN (Reason: shortness of breath or wheezing) docusate sodium 100 mg capsule 100 mg PO DAILY omeprazole 20 mg capsule,delayed release(DR/EC) 20 mg PO DAILY@0630 enoxaparin 40 mg/0.4 mL Syringe 40 mg subcut Q24H Qty: 0 0RF vitamin E 1,150 unit/1.25 mL liquid 1,000 unit PO DAILY divalproex 500 mg tablet extended release 24 hr 1,500 mg PO BEDTIME ipratropium-albuterol 0.5 mg-3 mg(2.5 mg base)/3 mL solution for nebulization 3 ml inhalation BID 30 Days Qty: 180 11RF Trelegy Ellipta 100-62.5-25 mcg blister with device 1 inh inhalation DAILY 30 Days Qty: 60 11RF propranolol 10 mg tablet 10 mg PO DAILY hydrocortisone 2.5 % cream 1 appl topical DAILY PRN (Reason: immflamation) (DME) nebulizers Misc See Rx Instructions .Route Rx Instructions: As directed benztropine 2 mg tablet 2 mg PO TID Print Language: Portuguese
[2024-03-15 21:30] LABS: Basophils Percent Auto 0.6 % (0-2); Eosinophils Absolute Auto 0.2 X10*3/uL (0.0-0.4); Eosinophils Percent Auto 2.8 % (0-4); Hematocrit 32.6 % (42.0-52.0); Hemoglobin 11.1 g/dl (14.0-18.0); Imm Gran Abs Auto 0.03 X10*3/uL (0.00-0.03); Imm Gran Pct Auto 0.6 % (0.0-0.4); Lymphocytes Absolute Auto 1.2 X10*3/uL (1.2-4.9); Lymphocytes Percent Auto 23.1 % (20-40); MANUAL DIFF FLAG SCAN; Mean Corpuscular Hemoglobin 28.8 pg (27.0-33.0); Mean Corpuscular Volume 84.5 fL (80.0-98.0); Mean Platelet Volume 9.9 fL (9.4-12.4); Monocytes Absolute Auto 1.1 X10*3/uL (0.1-1.2); Monocytes Percent Auto 21.4 % (2-11); Neutrophils Absolute Auto 2.7 x10*3/uL (2.0-8.3); Neutrophils Percent Auto 51.5 % (45-73); Platelet Count 166 X10*3/uL (160-400); Red Blood Count 3.86 X10*6/uL (4.60-5.80); Red Cell Distribution Width 13.5 % (11.0-16.0); SCAN SMEAR FLAG 1; White Blood Count 5.3 X10*3/uL (4.8-10.8)
[2024-03-15 21:31] LABS: Appearance Urine Clear; Color Urine Yellow; Glucose Urine UA Negative (Negative); Leukocyte Esterase Urine Negative (Negative); Nitrite Urine Negative (Negative); Urine Blood Negative (Negative); Urine Ketones Trace mg/dL (Negative); Urine Protein Trace mg/dL (Neg-Trace)
[2024-03-15 21:46] LABS: SLIDE REVIEW VERIFIED
[2024-03-15 21:50] LABS: Anion Gap 13 (12-20); Blood Urea Nitrogen 24 mg/dL (9-16); Calcium 9.1 mg/dL (8.4-10.2); Carbon Dioxide 25 mmol/L (22-29); Chloride 99 mmol/L (96-108); Creatinine Clr Calc Pharmacy 55.9; Estimated Glomerular Filt Rate > 60; Glucose Random 89 mg/dL (60-115); Potassium 3.9 mmol/L (3.3-5.1); Sodium 133 mmol/L (135-145)
[2024-03-16 02:13] VITALS: BP 152/78; PULSE 72; RESP 18; TEMP 36.5; O2SAT 96
--- NOTE | 2024-03-16 02:16 | PC.NURSE ---
0212: this Rn and registered dietetic technician were outside room with a dyer patient and heard pt fall, heard commode tip over and pt hit the floor on R side with commode falling on top of him, head strike with bleeding to back of head, provider at bedside to assess. pt denies pain. curtain was half open at time of fall. pt had been getting in and out of bed prior to fall on his own despite multiple attempts to redirect or educate about staying in bed for safety and ringing for help.
[2024-03-16 02:31] VITALS: BP 152/78; PULSE 72; RESP 18; TEMP 36.5; O2SAT 96
--- NOTE | 2024-03-16 02:40 | PC.NURSE ---
post fall vitals done, assessment completed by this Rn. pt denies any pain, back of head has small abrasions, no open cut. CT ordered and completed. bedside camera in place, call estes w/in reach. commode removed from room to discourage independent use, urinal at bedside. fall risk sign outside door, red socks on. curtain fully open.
[2024-03-16 02:53] VITALS: BP 155/85; PULSE 73; RESP 18; TEMP 36.6; O2SAT 98
--- NOTE | 2024-03-16 03:37 | PC.NURSE ---
pt attempt to get out of bed to use bathroom. redirected to use urinal
--- NOTE | 2024-03-16 03:52 | MHC.EDTECH ---
found pt at the end of the bed standing up. camera in the room was not alerting or making any noise about the fall patient standing up. pt educated to remain in the bed for safety post fall.
--- NOTE | 2024-03-16 04:02 | PC.NURSE ---
pt attempting to get out of bed, camera alerted staff, pt back in bed
[2024-03-16 04:51] VITALS: BP 170/91; PULSE 71; RESP 16; TEMP 36.6; O2SAT 96
[2024-03-16 05:34] VITALS: BP 123/66; PULSE 70
[2024-03-16 05:35] VITALS: BP 123/66; PULSE 70; RESP 16; TEMP 36.6; O2SAT 96
== END 2024-03-16 05:36 | disposition skilled nursing facility (03) ==
PROVIDERS: Emergency Medicine; Emergency Provider Emergency Medicine; PCP Internal Medicine
DX: S41.111A Laceration without foreign body of right upper arm, initial encounter (principal); S41.112A Laceration without foreign body of left upper arm, initial encounter; S40.022A Contusion of left upper arm, initial encounter; S40.021A Contusion of right upper arm, initial encounter; R51.9 Headache, unspecified; E11.9 Type 2 diabetes mellitus without complications; R79.89 Other specified abnormal findings of blood chemistry; W01.10XA Fall on same level from slipping, tripping and stumbling with subsequent striking against unspecified object, initial encounter; Y92.89 Other specified places as the place of occurrence of the external cause; Y93.9 Activity, unspecified; Y99.8 Other external cause status; Z79.899 Other long term (current) drug therapy; Z79.4 Long term (current) use of insulin; F17.210 Nicotine dependence, cigarettes, uncomplicated
CPT/HCPCS: 36415; 51701; 70450; 72125; 80048; 81003; 85025; 99284

== ENCOUNTER 2024-04-30 12:13 | Emergency (ER) | payer MEDICARE, MEDICAID, SELFPAY ==
--- NOTE | 2024-04-30 | ECG_ITS ---
Test Reason : CP Blood Pressure : / mmHG Vent. Rate : 068 BPM Atrial Rate : 068 BPM P-R Int : 176 ms QRS Dur : 094 ms QT Int : 398 ms P-R-T Axes : 077 015 033 degrees QTc Int : 423 ms Normal sinus rhythm Normal ECG When compared with ECG of 20-JAN-2024 08:37, No significant change was found Referred By: Generic ED Physician Electronically Signed By:CLIVE MANN
--- NOTE | ~2024-04-30 | XR_ITS ---
EXAMINATION: XR CHEST CLINICAL INFORMATION: Chest pain COMPARISON: None available. TECHNIQUE: 2 views of the chest were obtained. FINDINGS: The lungs are well-expanded and clear. The heart size and pulmonary vascularity is normal. No gross bony abnormality seen. XR/XR chest 2V IMPRESSION: Unremarkable chest examination. Electronically signed by: Delvis Fernandez MD 04/30/2024 07:39 PM EDT RP
--- NOTE | ~2024-04-30 | CT_ITS ---
EXAMINATION: CT HEAD WITHOUT IV CONTRAST CT CERVICAL SPINE WITHOUT IV CONTRAST CT MAXILLOFACIAL WITHOUT IV CONTRAST INDICATION: Trauma COMPARISON: CT head and cervical spine on 03/16/2024 TECHNIQUE: Multidetector CT acquisitions of the head, maxillofacial region, and cervical spine were obtained without IV contrast. Multiplanar reformats were acquired and utilized for image interpretation. This CT examination was performed using dose optimization techniques as appropriate, variously including the following: *Automated exposure control *Adjustment of mA and/or kV according to patient size (this includes techniques or standardized protocols for targeted exams where dose is matched to indication/reason for exam; i.e. extremities or head) *Use of iterative reconstruction technique FINDINGS: Motion artifact is present. HEAD: No acute intracranial hemorrhage or infarct. The regan-white matter differentiation is preserved. Patchy hypodensity involving the periventricular and deep white matter compatible small vessel ischemic disease. Mild global cerebral atrophy. No midline shift or hydrocephalus. No acute extra-axial fluid collections. The osseous structures are unremarkable. No orbital pathology. The paranasal sinuses and mastoid air cells are clear. Atherosclerotic calcifications of the bilateral carotid siphons. MAXILLOFACIAL: The mandible, maxilla, pterygoid plates, nasal bones, zygomatic arches, paranasal sinus hancock, and bony orbits are intact. No acute osseous abnormality within the maxillofacial region. The paranasal sinuses and mastoid air cells remain well aerated. The patient is edentulous. Significant degenerative changes of the TMJs. No significant soft tissue findings. CERVICAL SPINE: There is anatomic alignment of the vertebral bodies and posterior elements. There is no acute fracture and there is no acute subluxation. The craniocervical and atlantoaxial articulations are normal. Multilevel degenerative changes including endplate osteophytosis, disc space narrowing, uncovertebral hypertrophy, and facet arthrosis. There is no prevertebral soft tissue swelling. No significant soft tissue abnormality within the neck. Emphysematous changes in the imaged lung apices. CT/CT cervical spine wo IV con IMPRESSION: Within the limitations of the study, 1. No acute intracranial abnormality. 2. No acute osseous abnormality within the cervical spine. 3. No acute osseous abnormality within the maxillofacial region. Electronically signed by: Esteban Rhoades MD 04/30/2024 04:56 PM EDT
[2024-04-30 12:26] VITALS: BP 143/85; BP 155/74; PULSE 68; PULSE 71; RESP 18; TEMP 36.7; O2SAT 94; O2SAT 95; BMI 25.4
--- NOTE | 2024-04-30 12:32 | PC.NURSE ---
From [facility] with complaints of chest pain and cough over the last few weeks. ems placed coller d/tpatient having a bruise on left cheeck that facility staff were unsure how he sustained.
[2024-04-30 13:18] LABS: MANUAL DIFF FLAG NO
[2024-04-30 13:19] LABS: Basophils Percent Auto 0.4 % (0-2); Eosinophils Absolute Auto 0.2 X10*3/uL (0.0-0.4); Eosinophils Percent Auto 2.4 % (0-4); Hematocrit 34.3 % (42.0-52.0); Hemoglobin 11.6 g/dl (14.0-18.0); Imm Gran Abs Auto 0.04 X10*3/uL (0.00-0.03); Imm Gran Pct Auto 0.5 % (0.0-0.4); Lymphocytes Absolute Auto 2.1 X10*3/uL (1.2-4.9); Lymphocytes Percent Auto 26.8 % (20-40); Mean Corpuscular HGB Conc 33.8 g/dl (31.0-36.0); Mean Corpuscular Hemoglobin 28.6 pg (27.0-33.0); Mean Corpuscular Volume 84.7 fL (80.0-98.0); Mean Platelet Volume 9.7 fL (9.4-12.4); Monocytes Absolute Auto 0.8 X10*3/uL (0.1-1.2); Monocytes Percent Auto 10.7 % (2-11); Neutrophils Absolute Auto 4.7 x10*3/uL (2.0-8.3); Neutrophils Percent Auto 59.2 % (45-73); Platelet Count 237 X10*3/uL (160-400); Red Blood Count 4.05 X10*6/uL (4.60-5.80); Red Cell Distribution Width 14.7 % (11.0-16.0); White Blood Count 7.9 X10*3/uL (4.8-10.8)
[2024-04-30 13:30] LABS: INTERNATIONAL NORM RATIO 0.9 (0.9-1.1)
[2024-04-30 13:56] LABS: B Type Natriuretic Peptide 94 pg/mL (<100); Troponin-I High Sensitivity 3.4 ng/L (<3.5-35.0)
--- NOTE | 2024-04-30 13:57 | ED_ITS ---
HPI - Chest Pain General Chief Complaint: Chest Pain Stated Complaint: BRUISE ON FACE,?TRAUMA,RECENT FALLS PER EMS Time Seen by Provider: 04/30/24 12:28 Source: patient, RN notes reviewed, old records reviewed and refrigerator room clerk Mode of arrival: EMS Limitations: language barrier History of Present Illness ED Provider: Michael HPI narrative: 69-year-old male with past medical history significant for Parkinson's dementia, chronic kidney disease, unsteady gait, hyponatremia due to SIADH, coronary artery disease, type 2 diabetes, hypertension, COPD presents for evaluation of chest pain. Patient is presenting from [facility] dementia unit. He reports he had some chest pain around 11:00 a.m. this morning He states his pain has been coming and going He denies any shortness of breath, palpitations. The patient is in a C-collar, he has bruises to his chin and left cheek He is unaware how he got them and does not remember falling He does complain of neck pain Denies any facial pain or headache He has no other complaints or concerns at this time Related Data Home Medications ?Medication ?Instructions ?Recorded ?Confirmed divalproex 500 mg tablet,extended 1,500 mg PO BEDTIME 07/16/21 02/04/24 release 24 hr vitamin E 1,150 unit/1.25 mL oral 1,000 unit PO DAILY 01/28/23 01/20/24 liquid hydrocortisone 2.5 % topical cream 1 appl topical DAILY PRN 10/13/23 02/04/24 immflamation nebulizers 10/13/23 12/25/23 propranolol 10 mg tablet 10 mg PO DAILY 10/13/23 02/04/24 propranolol 20 mg tablet 20 mg PO BEDTIME 10/13/23 02/04/24 benztropine 2 mg tablet 2 mg PO TID 11/11/23 01/20/24 albuterol sulfate 90 mcg/actuation 2 inh inhalation Q4H PRN shortness 01/20/24 02/04/24 breath activated powder inhaler of breath or wheezing docusate sodium 100 mg capsule 100 mg PO DAILY constipation 01/20/24 02/04/24 fluoxetine 20 mg capsule 20 mg PO DAILY 01/20/24 02/04/24 omeprazole 20 mg capsule,delayed 20 mg PO DAILY@0630 06/18/24 07/03/24 release Previous Rx's ?Medication ?Instructions ?Recorded blood-glucose meter (FreeStyle #1 ea 05/24/21 Lite Meter kit) sennosides 8.6 mg tablet 17.2 mg (2 x 8.6 mg) PO DAILY PRN 12/05/22 constipation #60 tabs fluticasone fur. 100 mcg-umeclid 1 inh inhalation DAILY 30 days #60 02/06/23 62.5 mcg-vilant 25 mcg ea inhalat.powder (Trelegy Ellipta) ipratropium 0.5 mg-albuterol 3 mg 3 ml inhalation BID 30 days #180 mL 02/06/23 (2.5 mg base)/3 mL nebulization soln insulin degludec 100 unit/mL (3 10 unit (0.1 mL) subcut DAILY #15 03/05/23 mL) subcutaneous pen (Tresiba mL FlexTouch U-100 insulin) dulaglutide 0.75 mg/0.5 mL 0.75 mg (0.5 mL) subcut FR@0900 #6 07/05/23 subcutaneous pen injector mL (Trulicity) amlodipine 10 mg tablet 10 mg PO DAILY 90 days #90 tabs 07/26/23 blood sugar diagnostic (FreeStyle #100 ea 09/23/23 Lite Strips) atorvastatin 10 mg tablet 10 mg PO BEDTIME #90 tabs 10/22/23 pen needle, diabetic 31 gauge x #100 ea 11/04/2310/17 (BD Ultra-Fine Mini Pen Needle) acetaminophen 650 mg 650 mg PO Q6H PRN pain 30 days 12/17/23 tablet,extended release (Tylenol 8 #120 tabs Hour) sodium chloride 1,000 mg soluble 1,000 mg PO BID #60 tabs 01/06/24 tablet aspirin 81 mg tablet,delayed 81 mg PO DAILY #90 tabs 01/16/24 release (Adult Low Dose Aspirin) cholecalciferol (vitamin D3) 50 50 mcg PO DAILY #90 tabs 01/16/24 mcg (2,000 unit) tablet enoxaparin 40 mg/0.4 mL 40 mg (0.4 mL) subcut Q24H #0 mL 01/25/24 subcutaneous syringe Allergies Allergy/AdvReac Type Severity Reaction Status Date / Time No Known Allergies Allergy Mild NOT Verified 04/30/24 12:28 APPLICABLE Review of Systems 2 Constitutional: Constitutional: Denies body ache(s), Denies chills, Reports frequent falls and Denies headache(s) Eyes: Eyes: Denies blurry vision and Denies exophthalmos ENT: Denies vertigo, Denies dizziness and Denies headache(s) Cardiovascular: Cardiovascular: Reports chest pain, Reports chest pain at rest and Denies dyspnea Respiratory: Respiratory: Denies cough and Denies dyspnea Gastrointestinal: Gastrointestinal: Denies abdominal pain, Denies nausea and Denies vomiting Musculoskeletal: Musculoskeletal: Denies back pain Integumentary/Breasts: Skin/Breast: Denies rash Neurologic: Denies vertigo, Denies dizziness, Reports frequent falls and Denies headache(s) [facility] Past Medical History Medical History Tardive dyskinesia Parkinsonism Lives in assisted Chronic bronchitis Schizophrenia Centrilobular emphysema Essential hypertension Hyperlipidemia LDL goal <70 COPD (chronic obstructive pulmonary disease) Smoker Type 2 diabetes mellitus with diabetic polyneuropathy Multiple pulmonary nodules Surgical History No pertinent past surgical history Family History Family History Father Prostate cancer Diabetes Mother Diabetes Hypertension CVD (cardiovascular disease) Social History Social History Household Members: Other Household Members Other:: From assisted Housing: Assisted Living Facility Housing Other:: half-way Do you presently have visiting nurse or other home services: Yes Unable to assess alcohol history related to: Refusing to respond Alcohol intake: unknown Comment: 1;1 Patient Tobacco Use Status: Tobacco use Unknown Tobacco use type: Cigarette Cigarette Packs Per Day: 4 Cigarettes Per Day: 80 Years Smoked: 40 Advance Directives: Yes Advance Directives on File: Yes Advance Directives Date on File: 10/25/22 Do you have a plan to hurt others: No Plan service: No Current occupational status: disabled Cognitive needs: No Hearing needs: No Vision needs: No Physical Exam 2 Vital Signs: Vital Signs: Last Vital Signs Temp 97.9 F 04/30/24 16:18 Pulse 76 04/30/24 16:18 Resp 18 04/30/24 16:18 BP 144/82 H 04/30/24 16:18 Pulse Ox 95 04/30/24 16:18 O2 Del Method Room Air 04/30/24 16:18 BMI result Body Mass Index 25.4 Const: General: healthy appearing, comfortable, no acute distress, alert and awake Nutritional Appearance: well nourished Orientation/consciousness: p atient oriented x3 HEENT: Head: No normocephalic, No atraumatic, Yes abrasion and Yes contusion (To the chin and left cheek over the zygomatic arch. No step-offs) Eyes: Eyelids: Yes eyelids normal Conjunctivae: conjunctivae normal S clerae: sclerae normal Corneas: corneas normal Pupils: Equal, round and reactive pupils present EOM: EOMs intact bilaterally Neck: Neck: Yes full ROM Resp: Effort & Inspection: normal respiratory effort, able to speak in complete sentences, no audible wheezes and not labored Auscultation: clear to auscultation bilaterally Cardio: Rate: regular rate Rhythm: regular rhythm GI: Inspection: No distended Palpation (GI): Soft to palpation, not firm, nontender, no guarding and not rigid Skin: General skin exam: elasticity normal Neuro: General: patient oriented x3 Cranial nerves: Yes Equal, round and reactive pupils present and Yes Bilaterally intact EOM present Course Reevaluation(s) Reevaluation #1: Patient's workup largely unremarkable, troponin negative x2, CT scan showed no evidence of traumatic injury, the patient is stable for discharge at this time Time: 19:17 Medical Decision Making Medical Decision Making [facility] Narrative: 69-year-old male past medical history as documented above presents for evaluation of chest pain. He has a fairly poor historian, but plan for cardiac workup including labs, EKG, troponin and chest x-ray. The patient does not remember falling but does have bruises to his chin and left side of his face, he does complain of neck pain is in a C-collar. Plan for CT scan of the brain, facial bones and cervical spine. The patient is overall quite well appearing. Differential Diagnosis Differential Diagnoses: The differential diagnosis associated with the presentation includes Chest pain Chest wall pain Costochondritis Atypical chest pain ACS Contusion Mechanical fall Cervical fracture Cervical strain Intracranial hemorrhage Lab Data [facility] Lab Attestation statement: I reviewed the patient's lab results. There is no leukocytosis or left shift. The patient does have a mild normocytic anemia consistent with his baseline, platelet count within normal limits. The patient's sodium is low at 131, this is consistent his baseline and likely due to his history of SIADH. The remainder of his electrolytes are within normal limits, the patient's glucose is elevated to 195 with no evidence of DKA. Patient's initial troponin is 3.4, plan for a repeat troponin 04/30/24 13:12 04/30/24 13:12 Labs: Lab Results 04/30/24 04/30/24 Range/Units 13:12 18:48 WBC 7.9 (4.8-10.8) X10*3/uL RBC 4.05 L (4.60-5.80) X10*6/uL Hgb 11.6 L (14.0-18.0) g/dl Hct 34.3 L (42.0-52.0) % MCV 84.7 (80.0-98.0) fL MCH 28.6 (27.0-33.0) pg MCHC 33.8 (31.0-36.0) g/dl RDW 14.7 (11.0-16.0) % Plt Count 237 D (160-400) X10*3/uL MPV 9.7 (9.4-12.4) fL Immature Gran % (Auto) 0.5 H (0.0-0.4) % Neut % (Auto) 59.2 (45-73) % Lymph % (Auto) 26.8 (20-40) % [place]ks % (Auto) 10.7 (2-11) % Eos % (Auto) 2.4 (0-4) % Baso % (Auto) 0.4 (0-2) % Lymph # (Auto) 2.1 (1.2-4.9) X10*3/uL [place]ks # (Auto) 0.8 (0.1-1.2) X10*3/uL Eos # (Auto) 0.2 (0.0-0.4) X10*3/uL Baso # (Auto) 0.0 (0.0-0.2) X10*3/uL Abs Immat Gran (auto) 0.04 H (0.00-0.03) X10*3/uL Absolute Neuts (auto) 4.7 (2.0-8.3) x10*3/uL Absolute Nucleated RBC 0.000 (0.0-0.012) X10*3/uL Nucleated RBC % (auto) 0.0 (0.0-0.2) /100WBC PT 11.0 (10.9-12.4) SEC INR 0.9 (0.9-1.1) Sodium 131 L (135-145) mmol/L Potassium 4.4 (3.3-5.1) mmol/L Chloride 99 (96-108) mmol/L Carbon Dioxide 24 (22-29) mmol/L Anion Gap 12 (12-20) BUN 15 (9-16) mg/dL Creatinine 0.83 (0.5-1.4) mg/dL Estim Creat Clear Calc 70.3 Estimated GFR > 60 Random Glucose 195 H (60-115) mg/dL Calcium 9.7 D (8.4-10.2) mg/dL Magnesium 1.9 (1.6-2.6) mg/dL Total Bilirubin 0.3 (0.0-1.0) mg/dL AST 16 (5-37) U/L ALT 18 (0-40) U/L Alkaline Phosphatase 71 (39-117) U/L Troponin I High Sens 3.4 3.9 (<3.5-35.0) ng/L B-Natriuretic Peptide 94 (<100) pg/mL Total Protein 8.3 H (6.5-8.0) g/dL Albumin 3.7 (3.5-5.0) g/dL Lipase 42 (8-78) U/L Independent Interpretation I performed an independent interpretation of an: EKG (Normal sinus rhythm with a rate of [address] segment elevations or depressions, nondiagnostic EKG) Discharge Plan Discharge Clinical Impression: Chest pain, Contusion Patient Disposition: Xfer SNF Instructions: Chest Pain (ED), Fall Prevention for Older Adults (ED) Additional Instructions: Your workup in the ER today was reassuring. This includes your blood work and your CT imaging Follow-up with your primary doctor Prescriptions: No Action (DME) blood-glucose meter [FreeStyle Lite Meter] Kit See Rx Instructions .ROUTE .MEDSUPPLY Qty: 1 0RF Rx Instructions: As directed sennosides 8.6 mg tablet 17.2 mg PO DAILY PRN (Reason: constipation) Qty: 60 2RF insulin degludec [Tresiba FlexTouch U-100] 100 unit/mL (3 mL) insulin pen 10 unit subcut DAILY Qty: 15 1RF Trulicity 0.75 mg/0.5 mL pen injector 0.75 mg subcut FR@0900 Qty: 6 1RF amlodipine 10 mg tablet 10 mg PO DAILY 90 Days Qty: 90 1RF (DME) FreeStyle Lite Strips Strip See Rx Instructions .Route Qty: 100 0RF Rx Instructions: Use to check blood sugar once a day atorvastatin 10 mg tablet 10 mg PO BEDTIME Qty: 90 1RF (DME) pen needle, diabetic [BD Ultra-Fine Mini Pen Needle] 31 gauge x 3/16 needle See Rx Instructions subcut TID Qty: 100 1RF Rx Instructions: As directed to inject insulin daily acetaminophen [Tylenol 8 Hour] 650 mg tablet extended release 650 mg PO Q6H PRN (Reason: pain) 30 Days Qty: 120 0RF sodium chloride 1,000 mg tablet,soluble 1,000 mg PO BID Qty: 60 2RF aspirin [Adult Low Dose Aspirin] 81 mg tablet,delayed release (DR/EC) 81 mg PO DAILY Qty: 90 1RF cholecalciferol (vitamin D3) 50 mcg (2,000 unit) tablet 50 mcg PO DAILY Qty: 90 1RF propranolol 20 mg tablet 20 mg PO BEDTIME fluoxetine 20 mg capsule 20 mg PO DAILY albuterol sulfate 90 mcg/actuation aerosol powdr breath activated 2 inh inhalation Q4H PRN (Reason: shortness of breath or wheezing) docusate sodium 100 mg capsule 100 mg PO DAILY omeprazole 20 mg capsule,delayed release(DR/EC) 20 mg PO DAILY@0630 enoxaparin 40 mg/0.4 mL Syringe 40 mg subcut Q24H Qty: 0 0RF vitamin E 1,150 unit/1.25 mL liquid 1,000 unit PO DAILY divalproex 500 mg tablet extended release 24 hr 1,500 mg PO BEDTIME ipratropium-albuterol 0.5 mg-3 mg(2.5 mg base)/3 mL solution for nebulization 3 ml inhalation BID 30 Days Qty: 180 11RF Trelegy Ellipta 100-62.5-25 mcg blister with device 1 inh inhalation DAILY 30 Days Qty: 60 11RF propranolol 10 mg tablet 10 mg PO DAILY hydrocortisone 2.5 % cream 1 appl topical DAILY PRN (Reason: immflamation) (DME) nebulizers Misc See Rx Instructions .Route Rx Instructions: As directed benztropine 2 mg tablet 2 mg PO TID Print Language: Malawian
[2024-04-30 14:01] LABS: Alanine Aminotransferase 18 U/L (0-40); Albumin Level 3.7 g/dL (3.5-5.0); Alkaline Phosphatase 71 U/L (39-117); Anion Gap 12 (12-20); Aspartate Amino Transferase 16 U/L (5-37); Bilirubin Total 0.3 mg/dL (0.0-1.0); Blood Urea Nitrogen 15 mg/dL (9-16); Calcium 9.7 mg/dL (8.4-10.2); Carbon Dioxide 24 mmol/L (22-29); Chloride 99 mmol/L (96-108); Creatinine Clr Calc Pharmacy 70.3; Estimated Glomerular Filt Rate > 60; Glucose Random 195 mg/dL (60-115); Lipase 42 U/L (8-78); Magnesium 1.9 mg/dL (1.6-2.6); Potassium 4.4 mmol/L (3.3-5.1); Sodium 131 mmol/L (135-145); Total Protein 8.3 g/dL (6.5-8.0)
--- NOTE | 2024-04-30 15:03 | PC.NURSE ---
Patient oob with c collar on walking around room. Able to be re-directed for short periods of time. Denies pain or discomfort
[2024-04-30 16:18] VITALS: BP 144/82; PULSE 76; RESP 18; TEMP 36.6; O2SAT 95
--- NOTE | 2024-04-30 17:19 | PC.NURSE ---
moved closer to nurses station b/c he kept becca thurman.
--- NOTE | 2024-04-30 17:33 | PC.NURSE ---
in a recliner on 22H with chair alarm. Pt has been up mult times w/o assist. Has a very tiny shuffled gait and needs assistance to ensure safety.
--- NOTE | 2024-04-30 18:43 | PC.NURSE ---
out of chair to bathroom, used walker. chair alarm on/in place. Plan to collect repeat troponin level, and based on results, plan to transfer back to SNF.
[2024-04-30 19:16] LABS: Troponin-I High Sensitivity 3.9 ng/L (<3.5-35.0)
[2024-04-30 21:21] VITALS: BP 140/74; PULSE 70; RESP 20; O2SAT 98
[2024-04-30 22:06] VITALS: BP 140/74; PULSE 70; RESP 20; TEMP 36.8; O2SAT 98
== END 2024-04-30 22:08 | disposition skilled nursing facility (03) ==
PROVIDERS: Physician Assistant; Emergency Provider Student in an Organized Health Care Education/Training Program; PCP Internal Medicine
DX: R07.9 Chest pain, unspecified (principal); S00.83XA Contusion of other part of head, initial encounter; X58.XXXA Exposure to other specified factors, initial encounter; Y93.9 Activity, unspecified; R05.9 Cough, unspecified; R51.9 Headache, unspecified; Y92.129 Unspecified place in nursing home as the place of occurrence of the external cause; Y99.9 Unspecified external cause status; E11.9 Type 2 diabetes mellitus without complications; I10 Essential (primary) hypertension; E78.5 Hyperlipidemia, unspecified; G20.C Parkinsonism, unspecified; F02.80 Dementia in other diseases classified elsewhere, unspecified severity, without behavioral disturbance, psychotic disturbance, mood disturbance, and anxiety; E22.2 Syndrome of inappropriate secretion of antidiuretic hormone; J44.9 Chronic obstructive pulmonary disease, unspecified; F17.210 Nicotine dependence, cigarettes, uncomplicated; R29.6 Repeated falls; Z91.81 History of falling; Z87.01 Personal history of pneumonia (recurrent); Z79.85 Long-term (current) use of injectable non-insulin antidiabetic drugs; Z79.899 Other long term (current) drug therapy; Z79.02 Long term (current) use of antithrombotics/antiplatelets; Z79.01 Long term (current) use of anticoagulants
CPT/HCPCS: 36415; 70450; 70486; 71046; 72125; 80053; 83690; 83735; 83880; 84484; 85025; 85610; 93005; 99285

== ENCOUNTER 2024-07-13 10:23 | Outpatient (AMB) | payer MEDICARE, MEDICAID, SELFPAY ==
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
== END 2024-07-13 11:05 | disposition home or self-care (01) ==
PROVIDERS: PCP Nurse Practitioner Family; Visit Provider Psychiatry & Neurology Neurology
DX: G20.C Parkinsonism, unspecified (principal); G24.01 Drug induced subacute dyskinesia
CPT/HCPCS: 99214; G2211

== ENCOUNTER 2024-08-18 11:42 | Outpatient (AMB) | payer MEDICARE, SELFPAY ==
--- NOTE | 2024-08-18 11:47 | A.OFFVIS_ITS ---
Intake Visit Reasons: PSA Intake Note: Patient is Present for Follow Up PSA Urology Medication: None Antibiotic Allergies: None Blood Thinners: Aspirin Rubber Trimmer Required: No Mushroom Press Operator: Mushroom Press Operator Present Accompanied by: CAREGIVER Allergies No Known Allergies Allergy (Mild, Verified 08/18/24 11:58) NOT APPLICABLE HPI Comments Details: Armand is a very pleasant 69-year-old Kazakh-speaking male patient of Dr. Fan who was accompanied by one of the workers at [facility]. He has a past medical history of chronic bronchitis, schizophrenia, hypertension, COPD, type 2 diabetes, multiple pulmonary nodules, and nicotine dependence. He presents to the office today for follow-up of his microscopic hematuria. Of note, patient was seen approximately 6 months ago at which time he underwent an in office cystoscopy with Dr. Schaefer for his history of microscopic hematuria in the setting of nicotine dependence. Cystoscopy findings mild to moderate trabeculations, no suspicious bladder lesions. Previous workup has included a CT urogram 10/25 within normal limits. Urine cytology 11/25 negative for malignant cells. In office urinalysis results reviewed with the patient today. He does have a longstanding history of nicotine dependence. He otherwise denies any bothersome urinary issues or concerns. He reports be happy with current voiding parameters. Recent PSA results reviewed with the patient today 08/28 0.2. He denies urinary urgency, urinary frequency, incontinence, nocturia, hematuria, dysuria, foul smelling urine, changes to urinary stream, flank pain, fever, and or chills. [facility] Medical History Tardive dyskinesia Parkinsonism Lives in care home Chronic bronchitis Schizophrenia Centrilobular emphysema Essential hypertension Hyperlipidemia LDL goal <70 COPD (chronic obstructive pulmonary disease) Smoker Type 2 diabetes mellitus with diabetic polyneuropathy Multiple pulmonary nodules Surgical History No pertinent past surgical history Family History Father Prostate cancer Diabetes Mother Diabetes Hypertension CVD (cardiovascular disease) Social History Household Members: Other Household Members Other:: From care home Housing: Assisted Living Facility Housing Other:: [facility] Do you presently have visiting nurse or other home services: Yes Unable to assess alcohol history related to: Refusing to respond Alcohol intake: unknown Comment: 1;1 Patient Tobacco Use Status: Tobacco use Unknown Tobacco use type: Cigarette Cigarette Packs Per Day: 4 Cigarettes Per Day: 80 Years Smoked: 40 Advance Directives Date on File: 10/25/22 service: No Current occupational status: disabled Cognitive needs: No Hearing needs: No Vision needs: No Review of Systems Const All systems reviewed & are unremarkable except as noted in HPI and below Reports no additional complaints Eyes Reports no additional complaints ENT Reports no additional complaints Card Reports no additional complaints Resp Reports no additional complaints GI Reports no additional complaints Reports as per HPI Musc Reports no additional complaints Skin/Breast Reports system reviewed and no additional complaints, except as documented Neuro Reports no additional complaints Psych Reports no additional complaints Endo Reports no additional complaints Jona/Lymph Reports no additional complaints Aller/Immun Reports no additional complaints Physical Exam Const General: cooperative, comfortable, no acute distress, well developed, alert and awake Orientation/consciousness: oriented to person Limitations: wheelchair HEENT Head: Yes normal to inspection, Yes normocephalic and Yes atraumatic Ears: hearing grossly normal bilaterally Eyes General: appearance normal, both eyes and all related structures Neck Neck: Yes normal visual inspection and Yes trachea midline Chest Chest palpation & inspection: normal inspection of the chest Resp Effort & Inspection: normal respiratory effort and able to speak in complete sentences Cardio Rate: regular rate GI Inspection: Yes normal to inspection General: Yes no CVA tenderness Back/Spine/Pelvis Back: no CVA tenderness Skin General skin exam: no rashes or lesions noted Neuro General: oriented to person Extrem General: Yes normal to inspection Psych Appearance: grossly normal and well kempt Mental Status: mental status grossly normal Speech and movement: Normal speech and movement present and Clear speech present Affect: normal affect Attitude: cooperative Thought process: Normal thought process present Thought content: Normal thought content present Insight: Fair insight present (Psych) Judgement: Fair judgement present (Psych) Results AMB Urinalysis, Automated UA Leukoctes 0 Nixon/uL Last Edit by ALCIRA Dimas on 08/18/24 12:04 UA Nitrite Negative Last Edit by ALCIRA Dimas on 08/18/24 12:04 UA Urobilinogen 0.2 mg/dL Last Edit by Jewell Gonzales, JOSEA on 08/18/24 12:0 4 UA Protein 0 mg/dL Last Edit by JOSE DimasA on 08/18/24 12:04 UA pH 5.0 Last Edit by Jewell Gonzales, A on 08/18/24 12:04 UA Blood 10 Aashish/uL Last Edit by Jewell Gonzales, A on 08/18/24 12:04 UA Specific Gallina 1.010 Last Edit by Jewell Gonzales A on 08/18/24 12: 04 UA Ketone Negative Last Edit by Jewell Gonzales, RMA on 08/18/24 12:04 UA Bilirubin 0 mg/dL Last Edit by Jewell Gonzales A on 08/18/24 12:04 UA Glucose 250 mg/dL Last Edit by Jewell Gonzales, A on 08/18/24 12:04 Assessment & Plan Assessment & Plan (1) Smoker: Code(s): F17.200 - Nicotine dependence, unspecified, uncomplicated Category: Social Hx (2) Microhematuria: Code(s): R31.29 - Other microscopic hematuria Category: Medical Plan In office urinalysis results with the patient today; as noted above; will send for urine cytology. Recent PSA results reviewed with the patient today; as noted above. Patient currently denies any bothersome urinary issues or concerns. He reports be happy with current voiding parameters. Discussed, educated, and stressed the importance of limiting nicotine dependence for overall health and well-being. Will continue with surveillance monitoring Follow-up in 1 year with PSA; or sooner with any issues, concerns, and or questions. Orders: Orders AMB Urinalysis Automated Today Z13.9 - Encounter for screening, unspecified Prostate Specific Antigen 1 Year N40.0 - Benign prostatic hyperplasia without lower urinary tract symptoms Urine Cytology Today F17.200 - Nicotine dependence, unspecified, uncomplicated, R31.29 - Other microscopic hematuria Patient Instructions: The patient had an opportunity to ask questions regarding the treatment plan. All questions were answered. Physical exam, labs, and imaging were discussed and reviewed in detail. As well as risks, benefits, and discussion of treatment choices. No major barriers to understanding were identified. The patient expressed understanding and agreement with the above treatment plan. The patient was made aware they should contact our office by phone for worsening of their current condition, the appearance of new symptoms, or with any questions or concerns. Compliance is encouraged with any medications and follow up testing that is ordered. It is a privilege to be allowed the opportunity to participate in? your urological care.? Again, if you have any questions or concerns If you have any questions or concerns please do not hesitate to contact me. The office is [phone]. This note is constructed using voice recognition software. While every effort has been made to ensure accuracy developer programmer analyst errors may have been included. Yours sincerely, ADAMS Yu Coding Level of Care Code Est Pt Level 3 (14889) Diagnoses Smoker F17.200 Microhematuria R31.29
== END 2024-08-18 12:17 | disposition home or self-care (01) ==
PROVIDERS: PCP Nurse Practitioner Family; Visit Provider Nurse Practitioner Family
DX: F17.200 Nicotine dependence, unspecified, uncomplicated (principal); R31.29 Other microscopic hematuria; Z13.9 Encounter for screening, unspecified
CPT/HCPCS: 99213

== ENCOUNTER 2024-08-18 11:42 | Outpatient (REF) | payer MEDICARE, SELFPAY ==
[2024-08-18 17:06] LABS: Urine Cytology See Pathology rpt
== END 2024-08-18 11:43 | disposition home or self-care (01) ==
LOC: HO.LAB 11:42
PROVIDERS: PCP Nurse Practitioner Family; Visit Provider Nurse Practitioner Family
DX: R31.29 Other microscopic hematuria (principal); F17.200 Nicotine dependence, unspecified, uncomplicated; N40.0 Benign prostatic hyperplasia without lower urinary tract symptoms
CPT/HCPCS: 81003; 88112; 99212

== ENCOUNTER 2025-02-12 12:54 | Emergency (ER) | payer MEDICARE, MEDICAID, SELFPAY ==
[2025-02-12] VITALS (8 sets, daily range): BP systolic 110–201; BP diastolic 61–105; PULSE 67–119; RESP 16–18; TEMP 36.5–36.7; O2SAT 96–98; BMI 27.1
--- NOTE | 2025-02-12 14:46 | MHC.EDTECH ---
pt was changed over, pt expressing his frustration. he questioned if he can signed out he didnt like it. Pt stood up walked across the [place]yer to md station to tell me he is leaving and he doesn't like my tone. he Doesn't want me involve in his care. his behavior is an on/off switch with aggression that he is not a child. everything is a money curtis in that place. HE also stated he is [place] not Shashank to step away from him. At the [facility] RN stated they did not medicate unless he becomes aggressive once again.
--- NOTE | 2025-02-12 14:46 | PHA.MEDREC ---
Addendum entered by Kira Nash RPh 02/12/25 15:17: REVIEWED BY [facility] Original Note: Pharmacy Consult ? Medication Reconciliation Pharmacy has completed the medication reconciliation. Used list from [facility]
[2025-02-12 15:42] LABS: MANUAL DIFF FLAG NO
[2025-02-12 15:44] LABS: Hematocrit 35.9 % (42.0-52.0); Hemoglobin 12.2 g/dl (14.0-18.0); Imm Gran Abs Auto 0.04 X10*3/uL (0.00-0.03); Imm Gran Pct Auto 0.4 % (0.0-0.4); Lymphocytes Absolute Auto 2.1 X10*3/uL (1.2-4.9); Mean Corpuscular HGB Conc 34.0 g/dl (31.0-36.0); Mean Corpuscular Hemoglobin 29.5 pg (27.0-33.0); Mean Corpuscular Volume 86.9 fL (80.0-98.0); NRBC Abs Auto 0.000 X10*3/uL (0.0-0.012); NRBC Pct Auto 0.0 /100WBC (0.0-0.2); Platelet Count 213 X10*3/uL (160-400); Red Blood Count 4.13 X10*6/uL (4.60-5.80); White Blood Count 9.5 X10*3/uL (4.8-10.8)
[2025-02-12 15:53] LABS: Cannabinoid Screen Urine Not Detected (Not Detect)
[2025-02-12 16:03] LABS: Alanine Aminotransferase 15 U/L (0-40); Albumin Level 4.1 g/dL (3.5-5.0); Alkaline Phosphatase 52 U/L (39-117); Anion Gap 12 (12-20); Aspartate Amino Transferase 22 U/L (5-37); Blood Urea Nitrogen 19 mg/dL (9-16); Calcium 9.3 mg/dL (8.4-10.2); Carbon Dioxide 25 mmol/L (22-29); Chloride 100 mmol/L (96-108); Creatinine Clr Calc Pharmacy 80.2; Estimated Glomerular Filt Rate > 60; Potassium 4.4 mmol/L (3.3-5.1); Sodium 133 mmol/L (135-145); Total Protein 7.8 g/dL (6.5-8.0)
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
[2025-02-12 18:49] LABS: Appearance Urine Clear; Glucose Urine UA Negative (Negative); PH 6.0 (5.0-9.0); Specific Gravity - Urine 1.020 (1.005-1.025); UMIC TRIGGER UACC YES
[2025-02-12] MEDS: Albuterol/Iprat 2.5/0.5MG 3 ML AMPUL.NEB INHALE (21:14)
[2025-02-12] MEDS: Sodium Chloride Tab 1 GM TABLET PO (21:28)
[2025-02-12] MEDS: Divalproex Sodium Sprinkles 125 MG CAP.DR.SPR 375 MG PO (21:28)
[2025-02-12] MEDS: Artificial Tears 15 ML DROPS 1 DROP EYE-BOTH (21:28)
[2025-02-12 21:40] LABS: Glucose, Whole Blood 137 mg/dL (60-115)
[2025-02-13] VITALS (7 sets, daily range): BP systolic 150–171; BP diastolic 82–94; PULSE 68–80; RESP 12–16; TEMP 36.2–36.9; O2SAT 93–99
[2025-02-13] MEDS: Albuterol/Iprat 2.5/0.5MG 3 ML AMPUL.NEB INHALE (07:42)
[2025-02-13 08:07] LABS: Glucose, Whole Blood 128 mg/dL (60-115)
[2025-02-13] MEDS: Divalproex Sodium Sprinkles 125 MG CAP.DR.SPR 375 MG PO (08:35)
[2025-02-13] MEDS: Sodium Chloride Tab 1 GM TABLET PO (08:35)
[2025-02-13] MEDS: traZODone HCL 25 MG HALFTAB PO (08:36)
[2025-02-13] MEDS: Aspirin Enteric Coated 81 MG TABLET.DR PO (08:36)
[2025-02-13] MEDS: Insulin Glargine,Hum.rec.anlog 100 UNIT/ML 10 ML VIAL 10 UNIT SUBCUT (08:39)
[2025-02-13] MEDS: Artificial Tears 15 ML DROPS 1 DROP EYE-BOTH (08:42)
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
--- NOTE | 2025-02-13 10:46 | PC.NURSE ---
pt ate breakfast and took morning medications without issue. no behavioral issues at this time.
[2025-02-13] MEDS: Fluticasone/Umeclidinium/Vilanterol 100/62.5/25 BLST.W.DEV 1 PUFF INHALE (11:04)
[2025-02-13 11:11] LABS: Ammonia 25 umol/L (13-55)
--- NOTE | 2025-02-13 13:18 | PC.NURSE ---
pt states he wants to leave. pt redireted cheryl to room and had lucnh and a coffee. pt was changed over on previous shift but was allowed to keep belongings with him. he currently has a hat and zip up jacket on
--- NOTE | 2025-02-13 13:56 | MHC.CARE ---
Pt does not meet the criteria for IPLOC and will return to [facility].
== END 2025-02-13 16:12 ==
PROVIDERS: Physician Assistant Medical; Psychiatry & Neurology Psychiatry; Emergency Provider Emergency Medicine; PCP Family Medicine Geriatric Medicine
DX: G20.B1 Parkinson's disease with dyskinesia, without mention of fluctuations (principal); R45.1 Restlessness and agitation; I10 Essential (primary) hypertension; E11.9 Type 2 diabetes mellitus without complications; J44.9 Chronic obstructive pulmonary disease, unspecified; Z79.899 Other long term (current) drug therapy
CPT/HCPCS: 36415; 80048; 80076; 80307; 81001; 82140; 82947; 85025; 94640; 99285; S9485

== ENCOUNTER → 2025-02-12 13:32 | Outpatient (BNV) | payer MEDICARE, MEDICAID, SELFPAY | PROVIDERS: Emergency Provider Emergency Medicine; PCP Family Medicine Geriatric Medicine; Visit Provider Psychiatry & Neurology Psychiatry | DX: F03.911 Unspecified dementia, unspecified severity, with agitation (principal); R45.1 Restlessness and agitation | CPT/HCPCS: 99499 ==

== ENCOUNTER 2025-02-28 03:31 | Emergency (ER) | payer MEDICARE, MEDICAID, SELFPAY ==
[2025-02-28] VITALS (8 sets, daily range): BP systolic 170–196; BP diastolic 77–107; PULSE 73–86; RESP 18–20; TEMP 36.6–36.8; O2SAT 95–99; BMI 24.9
--- NOTE | 2025-02-28 | ECG_ITS ---
Test Reason : HYPERTENSION Blood Pressure : */* mmHG Vent. Rate : 75 BPM Atrial Rate : 75 BPM P-R Int : 124 ms QRS Dur : 104 ms QT Int : 388 ms P-R-T Axes : * -19 123 degrees QTcB Int : 433 ms Normal sinus rhythm Nonspecific T wave abnormality Abnormal ECG When compared with ECG of 30-Apr-2024 12:39, Nonspecific T wave abnormality, worse in Inferior leads Nonspecific T wave abnormality now evident in Lateral leads Referred By: Generic ED Physician Electronically Signed By: LYNDSAY GAMING MD
[2025-02-28 04:11] LABS: Glucose, Whole Blood 271 mg/dL (60-115)
[2025-02-28 04:23] LABS: MANUAL DIFF FLAG NO
[2025-02-28 04:24] LABS: Hematocrit 35.8 % (42.0-52.0); Hemoglobin 12.7 g/dl (14.0-18.0); Imm Gran Abs Auto 0.07 X10*3/uL (0.00-0.03); Imm Gran Pct Auto 0.6 % (0.0-0.4); Lymphocytes Absolute Auto 1.6 X10*3/uL (1.2-4.9); Mean Corpuscular HGB Conc 35.5 g/dl (31.0-36.0); Mean Corpuscular Hemoglobin 29.9 pg (27.0-33.0); Mean Corpuscular Volume 84.2 fL (80.0-98.0); NRBC Abs Auto 0.000 X10*3/uL (0.0-0.012); NRBC Pct Auto 0.0 /100WBC (0.0-0.2); Platelet Count 236 X10*3/uL (160-400); Red Blood Count 4.25 X10*6/uL (4.60-5.80); White Blood Count 10.9 X10*3/uL (4.8-10.8)
[2025-02-28 04:25] LABS: Appearance Urine Clear; Glucose Urine UA 500 mg/dL (Negative); PH 7.5 (5.0-9.0); Specific Gravity - Urine 1.015 (1.005-1.025); UMIC TRIGGER UA YES
[2025-02-28 04:48] LABS: Alanine Aminotransferase 18 U/L (0-40); Albumin Level 4.1 g/dL (3.5-5.0); Alkaline Phosphatase 66 U/L (39-117); Anion Gap 14 (12-20); Aspartate Amino Transferase 31 U/L (5-37); Blood Urea Nitrogen 13 mg/dL (9-16); Calcium 9.6 mg/dL (8.4-10.2); Carbon Dioxide 23 mmol/L (22-29); Chloride 94 mmol/L (96-108); Creatinine Clr Calc Pharmacy 63.9; Estimated Glomerular Filt Rate > 60; Potassium 4.3 mmol/L (3.3-5.1); Sodium 127 mmol/L (135-145); Total Protein 8.5 g/dL (6.5-8.0)
[2025-02-28 04:51] LABS: Troponin-I High Sensitivity 9.6 ng/L (<3.5-35.0)
--- NOTE | 2025-02-28 07:56 | ED.GENADULT ---
HPI - General Adult General Chief complaint: General Medical Stated complaint: elevated blood sugar 254 Time Seen by Provider: 02/28/25 07:31 Source: patient and language interpreter Mode of arrival: ambulatory Limitations: no limitations History of Present Illness ED Provider: DR. Patton HPI narrative: a 70-year-old male came in for evaluation of vomiting since yesterday about 6-7 episode of vomiting, nonbloody vomitus, epigastric abdominal burning acid reflux, no diarrhea, no recent use of antibiotic, patient also came in with his family for evaluation of elevated blood sugar, no chest pain. no recent travel, no recent use of antibiotic. patient and family had a barbecue pork, no reported other sick contacts. Related Data Home Medications ?Medication ?Instructions ?Recorded ?Confirmed nebulizers 10/13/23 07/13/24 propranolol 10 mg tablet 10 mg PO DAILY@0800 10/13/23 02/12/25 propranolol 20 mg tablet 20 mg PO BEDTIME 10/13/23 02/12/25 docusate sodium 100 mg capsule 100 mg PO DAILY constipation 01/20/24 02/12/25 fluoxetine 20 mg capsule 20 mg PO DAILY 01/20/24 02/12/25 deutetrabenazine 6 mg tablet 12 mg PO DAILY@0807/13/24 02/12/25 (Austedo) divalproex 125 mg capsule,delayed 375 mg PO TID 08/18/24 02/12/25 release sprinkle acetaminophen 325 mg tablet 650 mg PO DAILY PRN pain or fever 02/12/25 02/12/25 acetaminophen 325 mg tablet 975 mg PO TID 02/12/25 02/12/25 bisacodyl 10 mg rectal suppository 10 mg IA DAILY PRN Constipation 02/12/25 02/12/25 deutetrabenazine 6 mg tablet 6 mg PO DAILY@199902/12/25 02/12/25 (Austedo) dulaglutide 1.5 mg/0.5 mL 1.5 mg subcut MO 02/12/25 02/12/25 subcutaneous pen injector (Trulicity) insulin degludec 100 unit/mL (3 14 unit subcut DAILY@0800 02/12/25 02/12/25 mL) subcutaneous pen (Tresiba FlexTouch U-100 insulin) lasmiditan 50 mg tablet (Reyvow) 50 mg PO DAILY PRN migraines 02/12/25 02/12/25 losartan 100 mg tablet 100 mg PO DAILY 02/12/25 02/12/25 magnesium hydroxide 400 mg/5 mL 30 ml PO DAILY PRN Constipation 02/12/25 02/12/25 oral suspension (Milk of Magnesia) metformin 850 mg tablet 850 mg PO BID 02/12/25 02/12/25 propylene glycol 1 %-glycerin 0.3 1 drp ophthalmic (eye) BID 02/12/25 02/12/25 % eye drops (Artificial Tears (glycerin-peg)) sodium phosphates 19 gram-7 118 ml IA DAILY PRN Constipation 02/12/25 02/12/25 gram/118 mL enema (Fleet Enema) trazodone 50 mg tablet 25 mg PO DAILY@0800 02/12/25 02/12/25 Previous Rx's ?Medication ?Instructions ?Recorded blood-glucose meter (FreeStyle #1 ea 05/24/21 Lite Meter kit) fluticasone fur. 100 mcg-umeclid 1 inh inhalation DAILY 30 days #60 02/06/23 62.5 mcg-vilant 25 mcg ea inhalat.powder (Trelegy Ellipta) ipratropium 0.5 mg-albuterol 3 mg 3 ml inhalation BID 30 days #180 mL 02/06/23 (2.5 mg base)/3 mL nebulization soln blood sugar diagnostic (FreeStyle #100 ea 09/23/23 Lite Strips) atorvastatin 10 mg tablet 10 mg PO BEDTIME #90 tabs 10/22/23 pen needle, diabetic 31 gauge x #100 ea 11/04/2310/17 (BD Ultra-Fine Mini Pen Needle) sodium chloride 1,000 mg soluble 1,000 mg PO BID #60 tabs 01/06/24 tablet aspirin 81 mg tablet,delayed 81 mg PO DAILY #90 tabs 01/16/24 release (Adult Low Dose Aspirin) cholecalciferol (vitamin D3) 50 50 mcg PO DAILY #90 tabs 01/16/24 mcg (2,000 unit) tablet Allergies Allergy/AdvReac Type Severity Reaction Status Date / Time No Known Allergies Allergy Mild NOT Verified 02/28/25 03:48 APPLICABLE Review of Systems Review of Systems: All other systems are reviewed and are negative Constitutional: Reports as per HPI and Reports no additional constitutional complaints Eyes: Reports as per HPI and Reports no additional eye complaints Reports system reviewed and no additional complaints, except as documented Cardiovascular: Reports as per HPI and Reports no additional cardiovascular complaints Respiratory: Reports as per HPI and Reports no additional respiratory complaints Gastrointestinal: Reports as per HPI and Reports no additional gastrointestinal complaints Genitourinary: Reports no additional female genitourinary complaints Musculoskeletal: Reports no additional musculoskeletal complaints Skin/Breast: Reports system reviewed and no additional complaints, except as docu Psychiatric: Reports no additional psychiatric complaints Endocrine: Reports no additional endocrine complaints Hematologic/Lymphatic: Reports no additional hematologic/lymphatic complaints Allergic/Immunologic: Reports no additional allergic/immunologic complaints Reports system reviewed and no additional complaints, except as documented and Reports Abnormal speech present [facility] Past Medical History Medical History Tardive dyskinesia Parkinsonism Lives in senior living Chronic bronchitis Schizophrenia Centrilobular emphysema Essential hypertension Hyperlipidemia LDL goal <70 COPD (chronic obstructive pulmonary disease) Smoker Type 2 diabetes mellitus with diabetic polyneuropathy Multiple pulmonary nodules Surgical History No pertinent past surgical history Family History Family History Father Prostate cancer Diabetes Mother Diabetes Hypertension CVD (cardiovascular disease) Social History Social History Household Members: Other Household Members Other:: From senior living Housing: Assisted Living Facility Housing Other:: correction Do you presently have visiting nurse or other home services: Yes Unable to assess alcohol history related to: Refusing to respond Alcohol intake: unknown Comment: 1;1 Patient Tobacco Use Status: Tobacco use Unknown Tobacco use type: Cigarette Cigarette Packs Per Day: 4 Cigarettes Per Day: 80 Years Smoked: 40 Smoked in Last 30 Days: Yes Use of substances other than those prescribed or required for medical reasons: No Advance Directives: Yes Advance Directives on File: Yes Advance Directives Date on File: 10/25/22 Do you have a plan to hurt others: No Plan service: No Current occupational status: disabled Cognitive needs: No Hearing needs: No Vision needs: No Physical Exam ED Vital Signs: Vital Signs - 24 hr 02/28/25 03:46 02/28/25 04:15 02/28/25 06:09 Temperature 98.2 F 98.2 F Pulse Rate 80 76 73 Respiratory Rate 19 19 18 Blood Pressure 196/107 H 187/97 H 180/90 H Pulse Oximetry 96 97 95 Oxygen Delivery Method Room Air Room Air Room Air 02/28/25 08:31 02/28/25 08:33 02/28/25 08:33 Temperature Pulse Rate 77 80 86 Respiratory Rate Blood Pressure 178/101 H 180/96 H 193/105 H Pulse Oximetry Oxygen Delivery Method 02/28/25 10:07 Temperature 98.1 F Pulse Rate 75 Respiratory Rate 20 Blood Pressure 182/94 H Pulse Oximetry 99 Oxygen Delivery Method Room Air BMI result Body Mass Index 24.9 Vital signs have been reviewed and appear to be correct. Blood pressure elevated. Heart rate normal. Respiratory rate normal. Temperature normal. Oxygen saturation normal. Appearance: Alert. Oriented X3. No acute distress. Head: Normal external exam. Normocephalic. Atraumatic. No Zaidi signs noted. No raccoon eyes noted Eyes: PERRLA. EOMI. Conjunctiva and sclera normal. Eyelids normal. ENT: TM's Normal. Pharynx normal. Uvula midline. Moist mucous membranes. No trismus noted. No drooling noted. No muffled voice noted. Neck: Normal inspection. Neck supple. FROM. No adenopathy. Thyroid Normal. No meningeal signs. No neck mass noted. CVS: Normal heart rate and rhythm. Heart sound normal. No murmurs noted. Pulses normal throughout. Respiratory: No respiratory distress. Painless inspiration. Breath sounds normal. No wheezes/rales/rhonchi noted. Chest nontender. No accessory muscle usage noted or decreased air movement noted. Abdomen: Soft and nontender. Bowel sounds normal in all 4 quadrants. No distention noted. No organomegaly noted. No visible injury noted. Back: No CVA tenderness. Full range of motion noted. Skin: Skin warm and dry. Normal skin color. Normal skin turgor. No rashes/lesions/lacerations noted. Extremities: No lower extremity edema. Extremities exhibit normal range of motion. Extremities nontender. Neuro: Oriented X 3. Cranial nerve exam: II-XII are grossly intact No motor deficit. No sensory deficit. Reflexes normal. Course Reevaluation(s) Reevaluation #1: 70-year-old male came in with persistent vomiting found to be hyponatremic symptoms started after eating barbecue park likely a food poisoning.Able to tolerate p.o. intake no nausea, vomiting, able to tolerate p.o. intake, improvement of serum sodium after IV fluids labs were reviewed noticed that patient with chronically low sodium. Family at the bedside will take the patient home, patient was offered rehab but declined. Time: 13:08 Medications Administered Discontinued Medications Generic Name Dose Route Start Last Admin Trade Name Evanq PRN Reason Stop Dose Admin Al Hydroxide/Mg Hydroxide 30 ml 02/28/25 07:53 02/28/25 08:10 Magnesium Hydrox/Alum Hydrox 30 Ml Oral.Susp PO 02/28/25 07:54 30 ml ONCE ONE Administration Famotidine 20 mg 02/28/25 07:53 02/28/25 08:11 Famotidine/Pf 20 Mg/2 Ml Vial IVPUSH 02/28/25 07:54 20 mg ONCE ONE Administration Sodium Chloride 1,000 mls @ 999 mls/hr 02/28/25 09:56 02/28/25 10:02 Ns IV 02/28/25 10:56 999 mls/hr .Q1H1M ONE Administration Ondansetron HCl 4 mg 02/28/25 07:53 02/28/25 08:11 Ondansetron Hcl 4 Mg/2 Ml Vial IVPUSH 02/28/25 07:54 4 mg ONCE ONE Administration Medical Decision Making Differential Diagnosis Differential Diagnoses: The differential diagnosis associated with the presentation includes ( Dehydration, food poisoning, gastroenteritis, electrolyte derangement, severe anemia, ACS.) Admission/Observation Consideration of admission/observation: Escalation of care including admission/observation considered Lab Data MDM Lab Attestation statement: I reviewed the patient's lab results. 02/28/25 04:18 02/28/25 11:19 Labs: Lab Results 02/28/25 02/28/25 02/28/25 Range/Units 04:08 04:18 11:19 WBC 10.9 H (4.8-10.8) X10*3/uL RBC 4.25 L (4.60-5.80) X10*6/uL Hgb 12.7 L (14.0-18.0) g/dl Hct 35.8 L (42.0-52.0) % MCV 84.2 (80.0-98.0) fL MCH 29.9 (27.0-33.0) pg MCHC 35.5 (31.0-36.0) g/dl RDW 12.9 (11.0-16.0) % Plt Count 236 (160-400) X10*3/uL MPV 10.1 (9.4-12.4) fL Immature Gran % (Auto) 0.6 H (0.0-0.4) % Neut % (Auto) 69.8 (45-73) % Lymph % (Auto) 14.8 L (20-40) % [place] % (Auto) 12.2 H (2-11) % Eos % (Auto) 2.3 (0-4) % Baso % (Auto) 0.3 (0-2) % Lymph # (Auto) 1.6 (1.2-4.9) X10*3/uL [place] # (Auto) 1.3 H (0.1-1.2) X10*3/uL Eos # (Auto) 0.3 (0.0-0.4) X10*3/uL Baso # (Auto) 0.0 (0.0-0.2) X10*3/uL Abs Immat Gran (auto) 0.07 H (0.00-0.03) X10*3/uL Absolute Neuts (auto) 7.6 (2.0-8.3) x10*3/uL Absolute Nucleated RBC 0.000 (0.0-0.012) X10*3/uL Nucleated RBC % (auto) 0.0 (0.0-0.2) /100WBC Sodium 127 L 129 L (135-145) mmol/L Potassium 4.3 4.2 (3.3-5.1) mmol/L Chloride 94 L 100 (96-108) mmol/L Carbon Dioxide 23 23 (22-29) mmol/L Anion Gap 14 10 L (12-20) BUN 13 11 (9-16) mg/dL Creatinine 0.97 0.81 (0.5-1.4) mg/dL Estim Creat Clear Calc 63.9 76.5 Estimated GFR > 60 > 60 POC Glucose 271 H (60-115) mg/dL Random Glucose 278 H 189 H (60-115) mg/dL Calcium 9.6 8.7 D (8.4-10.2) mg/dL Total Bilirubin 0.3 (0.0-1.0) mg/dL Direct Bilirubin 0.2 (0.0-0.5) mg/dL AST 31 (5-37) U/L ALT 18 (0-40) U/L Alkaline Phosphatase 66 (39-117) U/L Troponin I High Sens 9.6 D (<3.5-35.0) ng/L Total Protein 8.5 H (6.5-8.0) g/dL Albumin 4.1 (3.5-5.0) g/dL Urine Color Yellow Urine Appearance Clear Urine pH 7.5 (5.0-9.0) Ur Specific [place] 1.015 (1.005-1.025) Urine Protein 100 (2+) H (Neg-Trace) mg/dL Urine Glucose (UA) 500 H (Negative) mg/dL Urine Ketones 15 (Negative) mg/dL Urine Blood Small (1+) H (Negative) Urine Nitrite Negative (Negative) Ur Leukocyte Esterase Negative (Negative) Urine RBC >20 H (0-2) /HPF Urine WBC 0-5 (0-5) /HPF Ur Squamous Epith Cells 0-2 (0-2) /HPF Urine Bacteria None Seen (None Seen) Hyaline Casts 0-2 (0-2) /LPF Discharge Plan Discharge Clinical Impression: Acute hyponatremia, Food poisoning Patient Disposition: Home, Self-Care Instructions: Food Poisoning (ED), Hyponatremia (ED) Prescriptions: No Action (DME) blood-glucose meter [FreeStyle Lite Meter] Kit See Rx Instructions .ROUTE .MEDSUPPLY Qty: 1 0RF Rx Instructions: As directed (DME) FreeStyle Lite Strips Strip See Rx Instructions .Route Qty: 100 0RF Rx Instructions: Use to check blood sugar once a day atorvastatin 10 mg tablet 10 mg PO BEDTIME Qty: 90 1RF (DME) pen needle, diabetic [BD Ultra-Fine Mini Pen Needle] 31 gauge x 3/16 needle See Rx Instructions subcut TID Qty: 100 1RF Rx Instructions: As directed to inject insulin daily sodium chloride 1,000 mg tablet,soluble 1,000 mg PO BID Qty: 60 2RF aspirin [Adult Low Dose Aspirin] 81 mg tablet,delayed release (DR/EC) 81 mg PO DAILY Qty: 90 1RF cholecalciferol (vitamin D3) 50 mcg (2,000 unit) tablet 50 mcg PO DAILY Qty: 90 1RF propranolol 20 mg tablet 20 mg PO BEDTIME fluoxetine 20 mg capsule 20 mg PO DAILY docusate sodium 100 mg capsule 100 mg PO DAILY acetaminophen 325 mg Tablet 975 mg PO TID acetaminophen 325 mg Tablet 650 mg PO DAILY MDD 3g PRN (Reason: pain or fever) trazodone 50 mg tablet 25 mg PO DAILY@0800 metformin 850 mg tablet 850 mg PO BID magnesium hydroxide [Milk of Magnesia] 400 mg/5 mL Suspension 30 ml PO DAILY PRN (Reason: Constipation) bisacodyl 10 mg Suppository 10 mg IA DAILY PRN (Reason: Constipation) Fleet Enema 19-7 gram/118 mL Enema 118 ml IA DAILY PRN (Reason: Constipation) losartan 100 mg tablet 100 mg PO DAILY Artificial Tears(glycerin-peg) 1-0.3 % Drops 1 drp OPHTHALMIC (EYE) BID Trulicity 1.5 mg/0.5 mL pen injector 1.5 mg subcut MO [place] 6 mg tablet 6 mg PO DAILY@2000 Reyvow 50 mg Tablet 50 mg PO DAILY PRN (Reason: migraines) insulin degludec [Tresiba FlexTouch U-100] 100 unit/mL (3 mL) insulin pen 14 unit subcut DAILY@0800 ipratropium-albuterol 0.5 mg-3 mg(2.5 mg base)/3 mL solution for nebulization 3 ml inhalation BID 30 Days Qty: 180 11RF Trelegy Ellipta 100-62.5-25 mcg blister with device 1 inh inhalation DAILY 30 Days Qty: 60 11RF [place] 6 mg tablet 12 mg PO DAILY@0800 Rx Instructions: 2 tabs qam and 1 tab qhs orally 2 times a day; divalproex 125 mg capsule, delayed rel sprinkle 375 mg PO TID propranolol 10 mg tablet 10 mg PO DAILY@0800 (DME) nebulizers Misc See Rx Instructions .Route Rx Instructions: As directed Referrals: Nicholas Rashid, [facility] [Primary Care Provider, Internal Medicine] Print Language: Italian
[2025-02-28] MEDS: Magnesium Hydrox/Alum Hydrox 30 ML ORAL.SUSP PO (08:10)
[2025-02-28 11:39] LABS: Anion Gap 10 (12-20); Blood Urea Nitrogen 11 mg/dL (9-16); Calcium 8.7 mg/dL (8.4-10.2); Carbon Dioxide 23 mmol/L (22-29); Chloride 100 mmol/L (96-108); Creatinine Clr Calc Pharmacy 76.5; Estimated Glomerular Filt Rate > 60; Potassium 4.2 mmol/L (3.3-5.1); Sodium 129 mmol/L (135-145)
--- NOTE | 2025-03-05 08:30 | PC.NURSE ---
on 02/28/25 the ns bolus ended at 1056
== END 2025-02-28 13:34 | disposition home or self-care (01) ==
PROVIDERS: Emergency Provider Emergency Medicine; PCP Nurse Practitioner Family
DX: A05.9 Bacterial foodborne intoxication, unspecified (principal); E87.1 Hypo-osmolality and hyponatremia; E11.9 Type 2 diabetes mellitus without complications; I10 Essential (primary) hypertension; E78.5 Hyperlipidemia, unspecified; J44.9 Chronic obstructive pulmonary disease, unspecified; G20.A1 Parkinson's disease without dyskinesia, without mention of fluctuations; F17.210 Nicotine dependence, cigarettes, uncomplicated; Z79.02 Long term (current) use of antithrombotics/antiplatelets; Z79.82 Long term (current) use of aspirin; Z79.899 Other long term (current) drug therapy; Z79.85 Long-term (current) use of injectable non-insulin antidiabetic drugs
CPT/HCPCS: 36415; 80048; 80076; 81001; 82947; 84484; 85025; 93005; 96374; 96375; 99284; 99285; J1308; J2405

== ENCOUNTER → 2025-02-28 03:59 | Outpatient (BNV) | payer MEDICARE, MEDICAID, SELFPAY | PROVIDERS: Emergency Provider Emergency Medicine; PCP Nurse Practitioner Family; Visit Provider Internal Medicine Cardiovascular Disease | DX: R94.31 Abnormal electrocardiogram [ECG] [EKG] (principal); I10 Essential (primary) hypertension | CPT/HCPCS: 93010 ==

== ENCOUNTER 2025-03-03 12:59 | Outpatient (REF) | payer MEDICARE, MEDICAID, SELFPAY ==
[2025-03-03 16:08] LABS: Alanine Aminotransferase 13 U/L (0-40); Albumin Level 4.0 g/dL (3.5-5.0); Alkaline Phosphatase 63 U/L (39-117); Anion Gap 11 (12-20); Aspartate Amino Transferase 20 U/L (5-37); Blood Urea Nitrogen 11 mg/dL (9-16); Calcium 8.8 mg/dL (8.4-10.2); Carbon Dioxide 27 mmol/L (22-29); Chloride 91 mmol/L (96-108); Estimated Glomerular Filt Rate > 60; Potassium 3.3 mmol/L (3.3-5.1); Sodium 126 mmol/L (135-145); Total Protein 7.7 g/dL (6.5-8.0)
== END 2025-03-03 13:00 | disposition home or self-care (01) ==
LOC: HO.HMGCLDS 12:59
PROVIDERS: PCP Family Medicine Geriatric Medicine; Visit Provider Physician Assistant
DX: Z09 Encounter for follow-up examination after completed treatment for conditions other than malignant neoplasm (principal); E87.1 Hypo-osmolality and hyponatremia; I10 Essential (primary) hypertension; G20.C Parkinsonism, unspecified; I12.9 Hypertensive chronic kidney disease with stage 1 through stage 4 chronic kidney disease, or unspecified chronic kidney disease; E11.22 Type 2 diabetes mellitus with diabetic chronic kidney disease; N18.30 Chronic kidney disease, stage 3 unspecified; J44.9 Chronic obstructive pulmonary disease, unspecified; Z13.31 Encounter for screening for depression; Z13.39 Encounter for screening examination for other mental health and behavioral disorders
CPT/HCPCS: 36415; 80053; 96127; 99212

== ENCOUNTER 2025-03-03 12:59 | Outpatient (AMB) | payer MEDICARE, MEDICAID, SELFPAY ==
[2025-03-03 13:03] VITALS: BP 200/100; PULSE 80; TEMP 36.8; O2SAT 95; BMI 26.1
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
--- OUTSIDE RECORDS SUMMARY | 2025-03-03 13:09 | XMS_ITS | Clinical Summary ---
Author Organization 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 Name Role Phone Unavailable Primary Care Provider Unavailabl e Allergies No known active allergies Medications Ventolin HFA 108 (90 Base) MCG/ACT inhaler 03/24/2023 Act soco amLODIPine (NORVASC) 10 MG tablet 03/26/2023 Active aspirin (ST AC) 81 MG EC tablet Take 1 tablet by mouth 1 (one) time each day Active divalproex (DEPAKOTE) 500 MG 24 hr tablet 03/03/2023 Act soco Trulicity 0.75 MG/0.5ML solution pen-injector 03/10/2023 Active Trelegy Ellipta 100-62.5-25 MCG/ACT aerosol powder 03/26/2023 Active gabapentin (NEURONTIN) 300 MG capsule 03/19/2023 Active Tresiba FlexTouch 100 UNIT/ML injection 03/05/2023 Active atorvastatin (LIPITOR) 10 MG tablet 01/31/2023 Active OLANZapine (ZyPREXA) 10 MG tablet 03/03/2023 Active omeprazole (PriLOSEC) [address] capsule 03/19/2023 Activ e propranolol (INDERAL) 20 MG tablet 03/14/2023 Active propranolol (INDERAL) 10 MG tablet Take 1 tablet by mouth 1 (one) time each day Active Incruse Ellipta 62.5 MCG/ACT aerosol powder 01/21/2023 Acti ve fluPHENAZine (PROLIXIN) 5 MG tablet 03/03/2023 Active benztropine (COGENTIN) 2 MG tablet 02/08/2023 Active VITAMIN E PO Take by mouth Active VITAMIN D PO Take by mouth Active Acetaminophen (TYLENOL 8 HOUR PO) Take by mouth Active senna (SENOKOT) 8.6 MG tablet Take 1 tablet by mouth 1 (one) time each day Active sodium chloride 1 g tablet Take 1 g by mouth in the morning and 1 g in the evening and 1 g before bedtime. Active Active Problems Problem Noted Date Diagnosed Date Hyperkalemia 03/27/2023 03/27/2023 Hypertensive disorder 03/27/2023 03/27/2023 Hyponatremia 03/27/2023 03/27/2023 Type 2 diabetes mellitus 03/27/2023 023 Family History Medical History Relation Comments Cancer Father Diabetes Father Diabetes Mother Heart disease Mother Hypertension Mother Relation Status Comments Father Mother Social History Tobacco Use Types Packs/Day Years Used Date Smoking Tobacco: Every Day Cigarettes Smokeless Tobacco: Never Tobacco Cessation:Ready to Q uit: No; Counseling Given: No Alcohol Use Standard Drinks/Week Comments Yes 0 (1 standard drink = 0.6 oz pure alcohol) Alcoholic Drinks/day: Occasional social drink Sex and Gender Information Value Date Recorded Sex Assigned at Not on file Legal Sex Male 4:43 PM EST Gender Identity Not on file Sexual Orientation Straight 04/25/2023 11 :55 AM EDT Last Filed Vital Signs Vital Sign Reading Time Taken Comments Blood Pressure 140/80 04/25/2023 11:50 AM EDT Pulse 64 04/25/2023 11:50 AM EDT Temperature - - Respiratory Rate - - Oxygen Saturation 97% 04/25/2023 11:50 AM EDT Inhaled Oxygen Concentration - - Weight 79.8 kg (176 lb) 03/27/2023 2:17 PM EDT Height - - Body Mass Index - - Plan of Treatment Health Maintenance Due Date Last Done Comments Pneumococcal Vaccine: 50+ Ye ars (1 of 2 - PCV) 1974 Colorectal Cancer Screening: Annual FOBT 01/09/2004 Colorectal Cancer Screening: Colonoscopy 01/09/2004 Colorectal Cancer Screening: Sigmoidoscopy 01/09/2004 Diabetes: Ophthalmology Exam 09/04/2020 Diabetes: Pedal Pulse Checked 09/04/2020 Diabetes: Sensory Foot Exam 09/04/2020 Diabetes: Visual Foot Exam 09/04/2020 Diabetes: Hemoglobin A1C 11/16/2024 08/18/2024 Influenza Vaccine (#1) 2025 Hepatitis B Vaccine Aged Out No longe r eligible based on patient's age to complete this topic Insurance ([place]) [address] [id number] Medicare Medicaid [place] ([place]) [address] [id number] Medicare Medicaid [place]
--- OUTSIDE RECORDS SUMMARY | 2025-03-03 13:09 | XMS_ITS | Encounter Summary ---
Author Organization [facility] Address [address] [place] [address] Care Team Providers Care Med Specialist Name Role Phone Jerald Sarah MD Primary Care Provide r Encounter Details Date Type Department Care Team (Late st Contact Info) Description 10/25/2024 Lab Requisition [facility] - Main Lab [address] [facility] [place] [address] Darius Fan MD [address] [place] [address] Type 2 diabetes mellitus without complications (CMS/HCC V24, CMS/HCC V28) Social History Tobacco Use Types Packs/Day Years Used Date Smoking Tobacco: Never Assessed Sex and Gender Information Value Date Recorded Sex Assigned at Not on file Legal Sex Male 4:35 AM EST Gender Identity Not on file Sexual Orientation Not on file documented as of this encounter Plan of Treatment Not on file documented as of this encounter Procedures Procedure Name Priority Date/Time Associated Diagnosis Comments BASIC METABOLIC PANEL Routine 10/25/2024 7:50 AM EDT Type 2 diabetes mellitus without complications documented in this encounter Results * (ABNORMAL) Basic metabolic panel (10/25/2024 7:50 AM EDT) Sodium 132(L) 133 - 145 mmol/L LAB CHEMISTRY METHOD 10/25/2024 11:42 AM EDT [facility] Potassium 4.1 3.5 - 5.5 mmol/L LAB CHEMISTRY METHOD 10/25/2024 11:42 AM EDT [facility] Chloride 98 96 - 110 mmol/L LAB CHEMISTRY METHOD 10/25/2024 11:42 AM [facility] CO2 26 21 - 32 mmol/L LAB CHEMISTRY METHOD 10/25/2024 11:42 AM [facility] Anion Gap 8 3 - 11 LAB CHEMISTRY METHOD 10/25/2024 11:42 AM [facility] Glucose 101(H) 70 - 100 mg/dL LAB CHEMISTRY METHOD 10/25/2024 11:42 AM [facility] BUN 17 5 - 25 mg/dL LAB CHEMISTRY METHOD 10/25/2024 11:42 AM [facility] Creatinine 0.98 0.70 - 1.30 mg/dL LAB CHEMISTRY METHOD 10/25/2024 11:42 AM [facility] eGFR 83 >=60 mL/min/1. 73m2 LAB CHEMISTRY METHOD 10/25/2024 11:42 AM [facility] Comment:Calculation based on the Chronic Kidney Disease Epidemiology Collaboration (CKD-EPI) equation refit without adjustment for race. BUN/Creatinine Ratio 17.3 LAB CHEMISTRY METHOD 10/25/2024 11:42 AM [facility] Calcium 9.1 8.5 - 10.5 mg/dL LAB CHEMISTRY METHOD 10/25/2024 11:42 AM [facility] Blood Venous blood specimen / Unknown Venipuncture / Unknown 10/25/2024 7:50 AM EDT 10/25/2024 10:39 AM EDT us Darius Fan MD LAB BLOOD ORDERABLES Final Resul t [facility] [address] [place] [address], documented in this encounter Visit Diagnoses Diagnosis Type 2 diabetes mellitus without complications (CMS/HCC V24, CMS/HCC V28) documented in this encounter Care Teams Med Specialist Relationship Specialty Start Date End Date Jerald Sarah MD [address] [place] [address] PCP - General Gastroenterology 04/07/12 documented as of this encounter
--- OUTSIDE RECORDS SUMMARY | 2025-03-03 13:09 | XMS_ITS | Clinical Summary ---
Author Organization [facility] Address [address] [facility] 7[address] [place] [address] Care Team Providers Care Spin Instructor Name Role Phone Unavailable Primary Care Provider Unavailabl e Encounters Date Type Department Care Team Description 01/31/2025 Telephone [facility] [address] [place] [address] [phone] Percy Camacho MD 01/07/2025 Telephone [facility] [address] [place] [phone] Percy Camacho MD New Patient Request from Last 3 Months Social History Tobacco Use Types Packs/Day Years Used Date Smoking Tobacco: Never Assessed Sex and Gender Information Value Date Recorded Sex Assigned at Male 06/03/2022 10:15 AM EDT Legal Sex Male 10:15 AM EDT Gender Identity Not on file Sexual Orientation Not on file Plan of Treatment Upcoming Encounters Date Type Department Care Team (Late st Contact Info) Description 04/29/2025 10:15 AM EDT Office Visit [facility] [address] [place] [phone] Radha Byrne MD [address] [place] [address] Health Maintenance Due Date Last Done Comments CT Colonography 1955 Colonoscopy 1955 Colorectal Cancer Screening 1955 Depression Screening 1955 FIT DNA/Cologuard 1955 FIT 1955 FOBT 1955 Lipid Panel 1955 SDOH Screening 1955 Sigmoidoscopy 1955 Alcohol/Substance Use Screening 1967 Tobacco Screening 1967 Hepatitis C Screening 1973 DTaP/Tdap/Td Vaccines (1 - Tdap) 1974 Pneumococcal Vaccine: 50+ Ye ars (1 of 1 - PCV) 2005 Zoster Vaccines (1 of 2) 2005 COVID-19 Vaccine (1 - 2023-2 5 season) 2024 Influenza Vaccine (#1) 2025 RSV Patients and Pa tients Aged 60 years or older (1 - 1-dose 75+ series) 2030 HIB Vaccines Aged Out No longer eligi ble based on patient's age to complete this topic HPV Vaccines Aged Out No longer eligi ble based on patient's age to complete this topic Hepatitis A Vaccines Aged Out No long er eligible based on patient's age to complete this topic Hepatitis B Vaccines Aged Out No long er eligible based on patient's age to complete this topic IPV Vaccines Aged Out No longer eligi ble based on patient's age to complete this topic Meningococcal B Vaccine Aged Out No l onger eligible based on patient's age to complete this topic Meningococcal Vaccine Aged Out No joanne gino eligible based on patient's age to complete this topic RSV under 20 months Aged Out No longe r eligible based on patient's age to complete this topic Rotavirus Vaccines Aged Out No longer eligible based on patient's age to complete this topic Insurance [facility] STANDARD
== END 2025-03-03 13:56 | disposition home or self-care (01) ==
PROVIDERS: PCP Family Medicine Geriatric Medicine; Visit Provider Physician Assistant
DX: E87.1 Hypo-osmolality and hyponatremia (principal); I10 Essential (primary) hypertension; Z09 Encounter for follow-up examination after completed treatment for conditions other than malignant neoplasm

== ENCOUNTER 2025-03-16 16:09 | Outpatient (AMB) | payer MEDICARE, MEDICAID, SELFPAY ==
--- OUTSIDE RECORDS SUMMARY | 2025-03-16 16:13 | XMS_ITS | Clinical Summary ---
Author Organization [facility] Facility Address [address] [place] [address], [place] [address] Care Team Providers Care Finance Business Partner Name Role Phone Unavailable Primary Care Provider [...] patient's age to complete this topic Insurance ([place]) [address] [id number] [place] [address] [address] [place]
--- OUTSIDE RECORDS SUMMARY | 2025-03-16 16:13 | XMS_ITS | Clinical Summary ---
Author Organization [facility] Address [address] 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 Name Role Phone Unavailable Primary Care Provider Unavailabl e Encounters Date Type Department Care Team Description 01/31/2025 Telephone [facility] [address] [place] [address] [phone] Percy Camacho MD 01/07/2025 Telephone [facility] [address] [place] [phone] Percy Camacho MD New Patient Request from [...] Description 04/29/2025 10:15 AM EDT Office Visit [facility] [address] [place] [phone] Radha Byrne MD [address] [place] [address] Health Maintenance Due Date Last Done Comments [...] patient's age to complete this topic Insurance [facility] STANDARD
[2025-03-16 16:19] VITALS: BP 144/90; PULSE 86; O2SAT 97; BMI 26.3
--- NOTE | 2025-03-16 16:19 | MHC.PC.OV ---
Vital Signs 03/16/25 16:19 03/16/25 17:17 Height 5 ft 6 in Weight 163 lb BMI 26.3 BP 144/90 H 134/82 Blood Pressure Location Lt brachial Position Sitting Pulse 86 Pulse Oximetry (%) 97 Oxygen Delivery Method Room Air Intake Visit Reasons: Follow up Administrative Underwriter Required: No Accompanied by: Nephew or Niece Allergies No Known Allergies Allergy (Mild, Verified 03/16/25 17:20) NOT APPLICABLE Medication List - Last Reconciled 03/16/25 by MONIKA Baltazar- acetaminophen 650 mg (2 x 325 mg) PO TID PRN 30 days amlodipine 5 mg PO DAILY aspirin (Adult Low Dose Aspirin) 81 mg PO DAILY atorvastatin 10 mg PO BEDTIME blood sugar diagnostic (FreeStyle Lite Strips) Use to check blood sugar 3 times per day blood-glucose meter (FreeStyle Lite Meter kit) As directed cholecalciferol (vitamin D3) 50 mcg PO DAILY deutetrabenazine (Austedo) 6 mg PO DAILY@2000 deutetrabenazine (Austedo) 12 mg PO DAILY@0800 divalproex 375 mg PO TID docusate sodium 100 mg PO DAILY dulaglutide (Trulicity) 1.5 mg (0.5 mL) subcut MO fluoxetine 20 mg PO DAILY cqoekltnwxy-ryqgzrtmp-uhrklygo 100-62.5-25 mcg (Trelegy Ellipta) 1 inh inhalation DAILY 30 days insulin glargine (Basaglar KwikPen U-100 Insulin) 14 units (0.14 mL) subcut QPM ipratropium-albuterol 0.5 mg-3 mg(2.5 mg base)/3 mL 3 mL inhalation BID 30 days lasmiditan (Reyvow) 50 mg PO DAILY PRN 30 days losartan 100 mg PO DAILY magnesium hydroxide (Milk of Magnesia) 30 mL PO DAILY PRN metformin 850 mg PO BID nebulizers As directed pen needle, diabetic As directed to inject insulin daily propranolol 10 mg PO DAILY@0800 propranolol 20 mg PO BEDTIME propylene glycol-glycerin 1-0.3 % (Artificial Tears (glycerin-peg)) 1 drp ophthalmic (eye) BID sodium chloride 1,000 mg PO BID sodium phosphates 19-7 gram/118 mL (Fleet Enema) 118 mL [place] DAILY PRN trazodone 25 mg (1/2 x 50 mg) PO DAILY@0800 Tobacco use date assessed: 03/03/25 Fall risk assessment: 1 Fall in past year Last assessed Fall Risk: 03/16/25 Dental Screening Dental Screen Date: 03/16/25 Did you have a dental visit in the last 12 months?: No Did you have a dental problem in the last 6 months where you did not have access to dental care?: No Was dental information given to patient?: Patient has dentist [facility] Medical History Tardive dyskinesia Parkinsonism Lives in skilled nursing Chronic bronchitis Schizophrenia Centrilobular emphysema Essential hypertension Hyperlipidemia LDL goal <70 COPD (chronic obstructive pulmonary disease) Smoker Type 2 diabetes mellitus with diabetic polyneuropathy Multiple pulmonary nodules Surgical History No pertinent past surgical history Family History Father Prostate cancer Diabetes Mother Diabetes Hypertension CVD (cardiovascular disease) Social History Household Members: Other Household Members Other:: From skilled nursing Housing: Assisted Living Facility Housing Other:: [facility] Do you presently have visiting nurse or other home services: Yes Unable to assess alcohol history related to: Refusing to respond Alcohol intake: unknown Comment: 1;1 Patient Tobacco Use Status: Current everyday Tobacco user Tobacco use type: Cigarette Cigarette Packs Per Day: 4 Cigarettes Per Day: 80 Years Smoked: 40 Advance Directives Date on File: 10/25/22 service: No Current occupational status: disabled Cognitive needs: No Hearing needs: No Vision needs: No Questionnaire PHQ-9 Over the last 2 weeks, how often have you been bothered by any of the following problems? 1. Little interest or pleasure in doing things: not at all 2. Feeling down, depressed, or hopeless: not at all 3. Trouble falling or staying asleep, or sleeping too much: not at all 4. Feeling tired or having little energy: not at all 5. Poor appetite or overeating: not at all 6. Feeling bad about yourself - or that you are a failure or have let yourself or your family down: not at all 7. Trouble concentrating on things, such as reading the newspaper or watching television: not at all 8. Moving or speaking so slowly that other people could have noticed. Or the opposite - being so fidgety or restless that you have been moving around a lot more than usual: not at all 9. Thoughts that you would be better off or of hurting yourself in some way: not at all Total score: 0 Depression Screening Interpretation: Negative Depression Screening Done: Yes 25998 - PHQ-9 Billing: Yes Source: Developed by Drs. Christos Barnes, Viridiana Nguyen, Darrin Becerra and colleagues, with an educational jaspreet from [employer]. Thrive Questionnaire Date Thrive assessed: 03/03/25 JESSA-7 AMB Questionnaire JESSA-7 Date JESSA - 7 assessed: 03/16/25 Feeling nervous, anxious, or on edge: 0 = Not at all Not being able to stop or control worryin = Not at all Worrying too much about different things: 0 = Not at all Trouble relaxin = Not at all Being so restless that it is hard to sit still: 0 = Not at all Becoming easily annoyed or irritable: 0 = Not at all Feeling afraid as if something awful might happen: 0 = Not at all Total JESSA-7 score (0-4 normal; 5-9 mild; 10-14 moderate; 15-21 severe): 0 Source: Developed by Drs. Christos Barnes, Viridiana Nguyen, Darrin Becerra and colleagues, with an educational jaspreet from [employer]. JESSA-7 Assessment Billing JESSA-7 Assessment Tool: JESSA-7 Assessment 80926 Physical exam (Primary Care) Vital Signs: Last Vital Signs Pulse 86 03/16/25 16:19 BP 144/90 H 03/16/25 16:19 Pulse Ox 97 03/16/25 16:19 Oxygen Delivery Method Room Air 03/16/25 16:19 BMI result Body Mass Index 26.3 Tobacco/Smoking Status: Tobacco use Status Tobacco use date assessed 03/03/25 03/16/25 16:26 Patient Tobacco Use Status Current everyday Tobacco 03/16/25 16:26 Tobacco use type Cigarette 03/16/25 16:26 PHQ-9: PHQ-9 Score PHQ-9: Total score 0 03/16/25 16:26 Depression Screening Interpretation: Negative Thrive Assessment: Date of Thrive Assessment Date Thrive assessed 03/03/25 03/16/25 16:26 Coding Level of Care Code Est Pt Level 4 (02775) Complex EM visit Add On G2211 Diagnoses Type 2 diabetes mellitus with diabetic polyneuropathy, with long-term current use of insulin E11.42; Z79.4 Diabetes mellitus dedicated intermodal truck driver insulin use: with dedicated intermodal truck driver use SIADH (syndrome of inappropriate ADH production) E22.2 Smoker F17.200 Mucopurulent chronic bronchitis J41.1 COPD type: chronic bronchitis Chronic bronchitis type: mucopurulent Chronic hyponatremia E87.1 CKD (chronic kidney disease) stage 3, GFR 30-59 ml/min N18.30 Parkinsonism G20.C Parkinsonism type: secondary Parkinsonism Additional Codes JESSA-7 Assessment Billing - JESSA-7 Assessment Tool: JESSA-7 Assessment 62670 ([id number]) PHQ-9 - 67049 - PHQ-9 Billing: Yes ([id number]) Assessment & Plan Assessment & Plan (1) Type 2 diabetes mellitus with diabetic polyneuropathy: Comment: IDDM2 Code(s): E11.42 - Type 2 diabetes mellitus with diabetic polyneuropathy Category: Medical Qualifiers: Diabetes mellitus dedicated intermodal truck driver insulin use: with senior living use Qualified Code(s): E11.42 - Type 2 diabetes mellitus with diabetic polyneuropathy; Z79.4 - intermediate teacher (current) use of insulin (2) SIADH (syndrome of inappropriate ADH production): Code(s): E22.2 - Syndrome of inappropriate secretion of antidiuretic hormone Category: Medical (3) Smoker: Code(s): F17.200 - Nicotine dependence, unspecified, uncomplicated Category: Social Hx (4) COPD (chronic obstructive pulmonary disease): Code(s): J44.9 - Chronic obstructive pulmonary disease, unspecified Category: Medical Qualifiers: COPD type: chronic bronchitis Chronic bronchitis type: mucopurulent Qualified Code(s): J41.1 - Mucopurulent chronic bronchitis (5) Chronic hyponatremia: Code(s): E87.1 - Hypo-osmolality and hyponatremia Category: Medical (6) CKD (chronic kidney disease) stage 3, GFR 30-59 ml/min: Code(s): N18.30 - Chronic kidney disease, stage 3 unspecified Category: Medical (7) 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 Orders: Orders TSH reflex Free T4 Today E11.42 - Type 2 diabetes mellitus with diabetic polyneuropathy, E22.2 - Syndrome of inappropriate secretion of antidiuretic hormone, Z79.4 - intermediate teacher (current) use of insulin UA CC w/rflx Micro + Cult Today E11.42 - Type 2 diabetes mellitus with diabetic polyneuropathy, E22.2 - Syndrome of inappropriate secretion of antidiuretic hormone, Z79.4 - intermediate teacher (current) use of insulin Microalbumin, Random (w Creat) Today E11.42 - Type 2 diabetes mellitus with diabetic polyneuropathy, E22.2 - Syndrome of inappropriate secretion of antidiuretic hormone, Z79.4 - [facility] (current) use of insulin Vitamin D 25-OH Total Today N18.30 - Chronic kidney disease, stage 3 unspecified Complete Blood Count Auto Diff Today E11.42 - Type 2 diabetes mellitus with diabetic polyneuropathy, E22.2 - Syndrome of inappropriate secretion of antidiuretic hormone, Z79.4 - [facility] (current) use of insulin Comprehensive [place]. Panel Fast Today E11.42 - Type 2 diabetes mellitus with diabetic polyneuropathy, E22.2 - Syndrome of inappropriate secretion of antidiuretic hormone, Z79.4 - intermediate teacher (current) use of insulin Lipid Panel Today E11.42 - Type 2 diabetes mellitus with diabetic polyneuropathy, E22.2 - Syndrome of inappropriate secretion of antidiuretic hormone, Z79.4 - [facility] (current) use of insulin Hemoglobin A1c Today E11.42 - Type 2 diabetes mellitus with diabetic polyneuropathy, E22.2 - Syndrome of inappropriate secretion of antidiuretic hormone, Z79.4 - intermediate teacher (current) use of insulin Referrals Ophthalmology Referral E11.42 - Type 2 diabetes mellitus with diabetic polyneuropathy, Z79.4 - [facility] (current) use of insulin Lung Cancer Screening Referral F17.200 - Nicotine dependence, unspecified, uncomplicated Pulmonology Referral J41.1 - Mucopurulent chronic bronchitis Nephrology Referral E87.1 - Hypo-osmolality and hyponatremia, N18.30 - Chronic kidney disease, stage 3 unspecified
[2025-03-16 17:17] VITALS: BP 134/82
== END 2025-03-16 17:00 | disposition home or self-care (01) ==
LOC: HO.HMCC 16:10
PROVIDERS: PCP Family Medicine Geriatric Medicine; Visit Provider Nurse Practitioner Family
DX: E11.42 Type 2 diabetes mellitus with diabetic polyneuropathy (principal); Z79.4 Long term (current) use of insulin; J41.1 Mucopurulent chronic bronchitis; N18.30 Chronic kidney disease, stage 3 unspecified; G20.C Parkinsonism, unspecified; E22.2 Syndrome of inappropriate secretion of antidiuretic hormone; F17.200 Nicotine dependence, unspecified, uncomplicated; E87.1 Hypo-osmolality and hyponatremia

== ENCOUNTER → 2025-03-16 16:09 | Outpatient (BNVA) | payer MEDICARE, MEDICAID, SELFPAY | PROVIDERS: PCP Family Medicine Geriatric Medicine; Visit Provider Nurse Practitioner Family | DX: E11.42 Type 2 diabetes mellitus with diabetic polyneuropathy (principal); I12.9 Hypertensive chronic kidney disease with stage 1 through stage 4 chronic kidney disease, or unspecified chronic kidney disease; E11.22 Type 2 diabetes mellitus with diabetic chronic kidney disease; N18.30 Chronic kidney disease, stage 3 unspecified; J41.1 Mucopurulent chronic bronchitis; E87.1 Hypo-osmolality and hyponatremia; G20.C Parkinsonism, unspecified; F17.200 Nicotine dependence, unspecified, uncomplicated; Z79.4 Long term (current) use of insulin; Z71.6 Tobacco abuse counseling | CPT/HCPCS: 96127; 99212 ==

== ENCOUNTER 2025-03-17 12:33 | Outpatient (REF) | payer MEDICARE, MEDICAID, SELFPAY ==
[2025-03-17 16:34] LABS: Appearance Urine Clear; Glucose Urine UA Negative (Negative); PH 6.0 (5.0-9.0); Specific Gravity - Urine 1.020 (1.005-1.025); UMIC TRIGGER UACC YES
[2025-03-17 16:34] LABS: MANUAL DIFF FLAG NO
[2025-03-17 16:45] LABS: Hematocrit 32.9 % (42.0-52.0); Hemoglobin 10.9 g/dl (14.0-18.0); Imm Gran Abs Auto 0.04 X10*3/uL (0.00-0.03); Imm Gran Pct Auto 0.4 % (0.0-0.4); Lymphocytes Absolute Auto 2.4 X10*3/uL (1.2-4.9); Mean Corpuscular HGB Conc 33.1 g/dl (31.0-36.0); Mean Corpuscular Hemoglobin 29.0 pg (27.0-33.0); Mean Corpuscular Volume 87.5 fL (80.0-98.0); NRBC Abs Auto 0.000 X10*3/uL (0.0-0.012); NRBC Pct Auto 0.0 /100WBC (0.0-0.2); Platelet Count 246 X10*3/uL (160-400); Red Blood Count 3.76 X10*6/uL (4.60-5.80); White Blood Count 9.2 X10*3/uL (4.8-10.8)
[2025-03-17 16:55] LABS: Hemoglobin A1C 169.5531 umol/L; Total Hemoglobin (HGBA1C) 2940.7019 umol/L
[2025-03-17 17:07] LABS: Alanine Aminotransferase 9 U/L (0-40); Albumin Level 3.7 g/dL (3.5-5.0); Alkaline Phosphatase 56 U/L (39-117); Anion Gap 11 (12-20); Aspartate Amino Transferase 20 U/L (5-37); Blood Urea Nitrogen 15 mg/dL (9-16); Calcium 8.8 mg/dL (8.4-10.2); Carbon Dioxide 24 mmol/L (22-29); Chloride 101 mmol/L (96-108); Cholesterol 86 mg/dL (<200); Estimated Glomerular Filt Rate > 60; HDL Cholesterol 36 mg/dL (>40); Potassium 4.0 mmol/L (3.3-5.1); Sodium 132 mmol/L (135-145); Total Protein 7.2 g/dL (6.5-8.0); Triglycerides 78 mg/dL (<150)
[2025-03-17 17:11] LABS: Microalbum/Creatinine Ratio Ur 166.1 ug/mg cr (<30)
== END 2025-03-17 12:34 | disposition home or self-care (01) ==
LOC: HO.HMGCLDS 12:33
PROVIDERS: PCP Nurse Practitioner Family; Visit Provider Nurse Practitioner Family
DX: Z01.30 Encounter for examination of blood pressure without abnormal findings (principal); E11.42 Type 2 diabetes mellitus with diabetic polyneuropathy; E22.2 Syndrome of inappropriate secretion of antidiuretic hormone; E11.22 Type 2 diabetes mellitus with diabetic chronic kidney disease; N18.30 Chronic kidney disease, stage 3 unspecified; Z79.4 Long term (current) use of insulin
CPT/HCPCS: 36415; 80053; 80061; 81001; 82043; 82306; 82570; 83036; 84443; 85025; 99499

== ENCOUNTER 2025-04-20 12:06 | Outpatient (AMB) | payer MEDICARE, MEDICAID, SELFPAY ==
[2025-04-20 12:11] VITALS: BP 150/82; PULSE 80; O2SAT 99; BMI 25.7
--- NOTE | 2025-04-20 12:11 | HO.NEPHOV ---
Vital Signs 04/20/25 12:11 04/20/25 12:20 Height 5 ft 6 in Weight 159 lb BMI 25.7 BP 150/82 H 130/80 Blood Pressure Location Lt brachial Lt brachial Position Sitting Sitting Pulse 80 Pulse Source Pulse Oximeter Pulse Oximetry (%) 99 Oxygen Delivery Method Room Air Intake Visit Reasons: R/S 04/13/2025-Conf w/nephew Corn Sheller Operator Required: No Corn Sheller Operator Name: Nephew will translate Accompanied by: Nephew or Niece Allergies No Known Allergies Allergy (Mild, Verified 04/20/25 12:13) NOT APPLICABLE Medication List - Last Reconciled 04/20/25 by Medhat Navarrete MD acetaminophen 650 mg (2 x 325 mg) PO TID PRN 30 days amlodipine 5 mg PO DAILY aspirin (Adult Low Dose Aspirin) 81 mg PO DAILY atorvastatin 10 mg PO BEDTIME blood sugar diagnostic (FreeStyle Lite Strips) Use to check blood sugar 3 times per day blood-glucose meter (FreeStyle Lite Meter kit) As directed cholecalciferol (vitamin D3) 50 mcg PO DAILY deutetrabenazine (Austedo) 6 mg PO DAILY@2000 deutetrabenazine (Austedo) 12 mg PO DAILY@0800 divalproex 375 mg PO TID docusate sodium 100 mg PO DAILY dulaglutide (Trulicity) 1.5 mg (0.5 mL) subcut MO fluoxetine 20 mg PO DAILY zchfwmizyva-ijymadvlv-kxvwrpcj 100-62.5-25 mcg (Trelegy Ellipta) 1 inh inhalation DAILY 30 days insulin glargine (Basaglar KwikPen U-100 Insulin) 14 units (0.14 mL) subcut QPM ipratropium-albuterol 0.5 mg-3 mg(2.5 mg base)/3 mL 3 mL inhalation BID 30 days lasmiditan (Reyvow) 50 mg PO DAILY PRN 30 days losartan 100 mg PO DAILY magnesium hydroxide (Milk of Magnesia) 30 mL PO DAILY PRN metformin 850 mg PO BID nebulizers As directed pen needle, diabetic As directed to inject insulin daily propranolol 10 mg PO DAILY@0800 propranolol 20 mg PO BEDTIME propylene glycol-glycerin 1-0.3 % (Artificial Tears (glycerin-peg)) 1 drp ophthalmic (eye) BID sodium chloride 1,000 mg PO BID sodium phosphates 19-7 gram/118 mL (Fleet Enema) 118 mL [place] DAILY PRN trazodone 25 mg (1/2 x 50 mg) PO DAILY@0800 HPI Comments Details: 68 yr old man with a h/o Chronic hyponatremia in a setting of COPD , HTN , CAD and midl CKD Baseline creatinine 1.1 to 1.3 mg/dL h/o AVINASH in the past Here for follow up c/o Leg pain when he walks Never had evaluation for PVD Accompanied by family member h/o smoking 2 PPD Underwent work up for hematuria 04/20/25 The patient is a 70-year-old male presenting with hyponatremia and hematuria. Hyponatremia has been monitored, and hematuria is under urologist care. The patient reports a persistent cough, . Hypertension is managed with amlodipine and losartan, with stable blood pressure. No breathing difficulties reported. No alcohol consumption; smoking history unclear. Medical History: - Hypertension Medications: - Amlodipine for hypertension - Losartan for hypertension - Salt tablets for hyponatremia Social History: - No alcohol consumption - Smoking history present, current status unclear [facility] Medical History (Updated 03/17/25 @ 10:09 by Yana Colin PA-C) Nicotine dependence, cigarettes, uncomplicated Tardive dyskinesia Parkinsonism Lives in skilled nursing Chronic bronchitis Schizophrenia Centrilobular emphysema Essential hypertension Hyperlipidemia LDL goal <70 COPD (chronic obstructive pulmonary disease) Type 2 diabetes mellitus with diabetic polyneuropathy Multiple pulmonary nodules Surgical History No pertinent past surgical history Family History Father Prostate cancer Diabetes Mother Diabetes Hypertension CVD (cardiovascular disease) Social History Household Members: Other Household Members Other:: From skilled nursing Housing: Assisted Living Facility Housing Other:: [facility] Do you presently have visiting nurse or other home services: Yes Unable to assess alcohol history related to: Refusing to respond Alcohol intake: unknown Comment: 1;1 Patient Tobacco Use Status: Current everyday Tobacco user Tobacco use type: Cigarette Cigarette Packs Per Day: 4 Cigarettes Per Day: 80 Years Smoked: 40 Advance Directives Date on File: 10/25/22 service: No Current occupational status: disabled Cognitive needs: No Hearing needs: No Vision needs: No Physical Exam Vital Signs: BMI result Body Mass Index 25.7 Const General: comfortable Nutritional Appearance: well nourished Orientation/consciousness: patient oriented x3 HEENT Head: No normal to inspection Mouth: moist mucous membranes Neck Neck: Yes supple and Yes no JVD Cardio Jugular venous distension: no JVD Palpation: no palpable S3 and no palpable S4 Heart sounds: no rubs GI Palpation (GI): Soft to palpation and nontender Percussion: No Fluid wave present General: Yes no CVA tenderness Back/Spine/Pelvis Back: no CVA tenderness Skin General skin exam: no rashes or lesions noted Neuro General: patient oriented x3 Extrem General: Yes no pedal edema and No clubbing Results Reviewed Nephrology Results: Hgb, (14.0-18.0) 10.9 g/dl L 03/17/25 WBC, (4.8-10.8) 9.2 X10*3/uL 03/17/25 Plt Count, (160-400) 246 X10*3/uL 03/17/25 Sodium, (135-145) 132 mmol/L L 03/17/25 Potassium, (3.3-5.1) 4.0 mmol/L Δ 03/17/25 Chloride, (96-108) 101 mmol/L 03/17/25 Carbon Dioxide, (22-29) 24 mmol/L 03/17/25 BUN, (9-16) 15 mg/dL 03/17/25 Creatinine, (0.5-1.4) 0.90 mg/dL 03/17/25 Calcium, (8.4-10.2) 8.8 mg/dL 03/17/25 Urine Protein, (Neg-Trace) 30 (1+) mg/dL H 03/17/25 Urine Creatinine 99.28 mg/dL 03/17/25 Assessment & Plan Assessment & Plan (1) Microhematuria: Code(s): R31.29 - Other microscopic hematuria Category: Medical Plan: Microhematuria without significant proteinuria complete urology work up Serology re-ordered (2) CKD (chronic kidney disease) stage 3, GFR 30-59 ml/min: Code(s): N18.30 - Chronic kidney disease, stage 3 unspecified Category: Medical Plan: Renal functions was close to baseline No proteinuria Continue to avoid nephrotoxins including NSAIDS Keep I > 0 (3) Chronic hyponatremia: Code(s): E87.1 - Hypo-osmolality and hyponatremia Category: Medical Plan: Most likely due to NON Osmotic ADH release in a setting of COPD Goal pNa > 130 Restrict PO water intake Salt tabs (4) Essential hypertension: Code(s): I10 - Essential (primary) hypertension Category: Medical Plan: BP acceptable No changes to medications Goal BP < 130/80 Plan . Orders: Orders Basic Metabolic Panel 6 Months E87.1 - Hypo-osmolality and hyponatremia, I10 - Essential (primary) hypertension UA and rflx microscopic 6 Months E87.1 - Hypo-osmolality and hyponatremia, I10 - Essential (primary) hypertension Coding Level of Care Code Est Pt Level 4 (90820) Diagnoses Microhematuria R31.29 CKD (chronic kidney disease) stage 3, GFR 30-59 ml/min N18.30 Chronic hyponatremia E87.1 Essential hypertension I10
[2025-04-20 12:20] VITALS: BP 130/80
--- OUTSIDE RECORDS SUMMARY | 2025-04-20 15:34 | XMS_ITS | Encounter Summary ---
Author Organization [employer] Address [address] [facility] [address] [place] [address] Care Team Providers Care Overhead Door Technician Name Role Phone Unavailable Primary Care Provider Unavailabl e Reason for Visit * Reason Comments Pre-visit Planning (Unable to reach for PVP screening and or LVM) to be completed in office Encounter Details Date Type Department Care Team (Late Contact Info) Description 04/20/2025 Patient Outreach [address] [phone] Radha Byrne MD [address] [place] [address] [phone] Pre-visit Planning ((Unable to reach for PVP screening and or LVM) to be completed in office) Social History Tobacco Use Types Packs/Day Years Used Date Smoking Tobacco: Never Assessed Sex and Gender Information Value Date Recorded Sex Assigned at Male 06/03/2022 10:15 AM EDT Legal Sex Male 10:15 AM EDT Gender Identity Not on file Sexual Orientation Not on file documented as of this encounter Progress Notes * Faiza Gongora - 04/20/2025 11:02 AM EDT CC Faiza placed outbound call to patient to complete pre-visit planning. No answer at this time. Patient name and were not confirmed. CC unable to leave a voice message. documented in this encounter Plan of Treatment Upcoming Encounters Date Type Department Care Team ([facility] Contact Info) Description 04/29/2025 10:15 AM EDT Office Visit [address] [phone] Radha Byrne MD [address] [place] [address] documented as of this encounter Visit Diagnoses Not on filedocumented in this encounter
--- OUTSIDE RECORDS SUMMARY | 2025-04-20 15:34 | XMS_ITS | Clinical Summary ---
Author Organization [email or web address] Address [address] [facility] [address] [place] [address] Care Team Providers Care Patch Finisher Name Role Phone Unavailable Primary Care Provider Unavailabl e Encounters Date Type Department Care Team Description 04/20/2025 Patient Outreach [facility] [address] [place] [id number] Radha Byrne MD Pre-visit Planning ((Unable to reach for PVP screening and or LVM) to be completed in office) 01/31/2025 Telephone [facility] [address] [place] [address] [phone] Percy Camacho MD from Last 3 Months Social History Tobacco [...] Description 04/29/2025 10:15 AM EDT Office Visit [facility] [address] [place] [phone] Radha Byrne MD [address] [place] [phone] Health Maintenance Due Date Last Done Comments [...] COVID-19 Vaccine (1 - 2023-2 5 season) 2025 Influenza Vaccine (#1) 2025 RSV Patients and [...] patient's age to complete this topic [place] [address] STANDARD
== END 2025-04-20 12:27 | disposition home or self-care (01) ==
LOC: HO.HKAS 12:06
PROVIDERS: PCP Nurse Practitioner Family; Visit Provider Internal Medicine Hypertension Specialist
DX: R31.29 Other microscopic hematuria (principal); N18.30 Chronic kidney disease, stage 3 unspecified; E87.1 Hypo-osmolality and hyponatremia; I10 Essential (primary) hypertension
CPT/HCPCS: 99214

== ENCOUNTER → 2025-04-20 12:06 | Outpatient (BNVA) | payer MEDICARE, MEDICAID, SELFPAY | PROVIDERS: PCP Nurse Practitioner Family; Visit Provider Internal Medicine Hypertension Specialist | DX: I12.9 Hypertensive chronic kidney disease with stage 1 through stage 4 chronic kidney disease, or unspecified chronic kidney disease (principal); N18.30 Chronic kidney disease, stage 3 unspecified; R31.29 Other microscopic hematuria; E87.1 Hypo-osmolality and hyponatremia | CPT/HCPCS: 99212 ==

== ENCOUNTER 2025-08-03 13:55 | Outpatient (AMB) | payer MEDICARE, MEDICAID, SELFPAY ==
[2025-08-03 14:01] VITALS: BP 180/100; PULSE 78; O2SAT 98
--- NOTE | 2025-08-03 14:01 | MHC.PC.OV ---
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: No Accompanied by: Self / Same As Patient Allergies No Known Allergies Allergy (Mild, Verified 08/03/25 14:04) NOT APPLICABLE Tobacco use date assessed: 08/03/25 Fall risk assessment: No Falls in past year Last assessed Fall Risk: 08/03/25 Dental Screening Dental Screen Date: 08/03/25 Did you have a dental visit in the last 12 months?: Yes Did you have a dental problem in the last 6 months where you did not have access to dental care?: No Was dental information given to patient?: Patient has dentist HPI Annual PE HPI Details History of Present Illness The patient is a 70 year old male presenting for a physical exam. He has a history of diabetes and receives regular care from a maintenance worker house trailer and a neurologist. He has a significant psychiatric history and is supposed to be followed by psychiatry, but this has reportedly not been occurring. several attempts were made to communicate with the pt...BH provider here spoek with pt/caregiver, number given to them to call for further services. The patient is a heavy smoker, and a referral for a low-dose CT scan program was placed in the past, though the outcome is unknown. He also sees urology for PSA monitoring, and his colon cancer screening is up to date. Health Maintenance The patient is a heavy smoker, and the status of a previous referral to a low-dose CT scan program will be investigated. He is also due for an RSV vaccination, and his caregiver has been notified. Social History - Language: The patient primarily speaks [place]agu[place] and communicates in short sentences. - Caregiver: The patient's nephew is his primary caregiver and was present for the visit, speaking on his behalf. - Substance Use: The patient is a heavy smoker. Review of Systems Physical Exam General: Cooperative, healthy appearing, comfortable, no acute distress and well developed Orientation: Patient oriented x3, answers sinple questions (in andorran) Limitations: No limitations Head: Normal to inspection Ears: Hearing grossly normal bilaterally Nose: Normal external nose present Face and sinus: Normal facial exam Eyes: Appearance normal, both eyes and all related structures Neck: Normal visual inspection and Yes full ROM Respiratory: Diminished with scattered wheezes Cardiovascular: Regular rate and rhythm. Normal S1 and S2 GI: Normal to inspection. Soft to palpation and nontender Skin: No rashes or lesions noted, some onychomycosis noted Neuro: Patient oriented x3 Extremities: Normal to inspection, positive sensation use of monofilament and tuning fork, feet were intact Results Plan 1. Diabetes Mellitus The patient has a history of diabetes and is due for a diabetic eye exam. A referral will be placed for this screening. 2. Psychiatric Disorder, Unspecified The patient has a significant psychiatric history and is not receiving the intended follow-up care from psychiatry. A behavioral health staff member will be engaged to assist with coordinating his psychiatric care. 3. physical exam with abnormal findings Discussion Notes I discussed the patient's care with his nephew, who is his primary caregiver. I will place a referral for a diabetic eye exam, as it is due. I plan to involve a member of our behavioral health staff to address the lack of psychiatric follow-up. I will also investigate the status of a past referral for a low-dose CT scan. I informed the caregiver that the patient is due for an RSV vaccination. Patient Instructions - We will be placing a referral for you to get a diabetic eye exam. - A member of our behavioral health team will contact you to help arrange follow-up with a psychiatrist. - It is recommended that you receive the RSV vaccination. - Please continue your regular appointments with your kidney specialist (maintenance worker house trailer) and center medical specialist (neurologist). [facility] Medical History Nicotine dependence, cigarettes, uncomplicated Tardive dyskinesia Parkinsonism Lives in [place] [facility] Chronic bronchitis Schizophrenia Centrilobular emphysema Essential hypertension Hyperlipidemia LDL goal <70 COPD (chronic obstructive pulmonary disease) Type 2 diabetes mellitus with diabetic polyneuropathy Multiple pulmonary nodules Surgical History No pertinent past surgical history Family History Father Prostate cancer Diabetes Mother Diabetes Hypertension CVD (cardiovascular disease) Social History Household Members: Other Household Members Other:: From [place] [facility] Housing: Assisted Living Facility Housing Other:: [facility] Do you presently have visiting nurse or other home services: Yes Alcohol intake: unknown Comment: 1;1 Patient Tobacco Use Status: Current everyday Tobacco user Tobacco use type: Cigarette Cigarette Packs Per Day: 4 Cigarettes Per Day: 80 Years Smoked: 40 Advance Directives Date on File: 10/25/22 service: No Current occupational status: disabled Cognitive needs: No Hearing needs: No Vision needs: No Questionnaire PHQ-9 Over the last 2 weeks, how often have you been bothered by any of the following problems? 1. Little interest or pleasure in doing things: not at all 2. Feeling down, depressed, or hopeless: not at all 3. Trouble falling or staying asleep, or sleeping too much: not at all 4. Feeling tired or having little energy: not at all 5. Poor appetite or overeating: not at all 6. Feeling bad about yourself - or that you are a failure or have let yourself or your family down: not at all 7. Trouble concentrating on things, such as reading the newspaper or watching television: not at all 8. Moving or speaking so slowly that other people could have noticed. Or the opposite - being so fidgety or restless that you have been moving around a lot more than usual: not at all 9. Thoughts that you would be better off or of hurting yourself in some way: not at all Total score: 0 Depression Screening Interpretation: Negative Depression Screening Done: Yes 25482 - PHQ-9 Billing: Yes Source: Developed by Drs. Christos Barnes, Viridiana Nguyen, Darrin Becerra and colleagues, with an educational jaspreet from [employer]. Thrive Questionnaire Date Thrive assessed: 03/03/25 JESSA-7 AMB Questionnaire JESSA-7 Date JESSA - 7 assessed: 03/16/25 Source: Developed by Drs. Christos Barnes, Viridiana Nguyen, Darrin Becerra and colleagues, with an educational jaspreet from [employer]. Physical exam (Primary Care) Vital Signs: Last Vital Signs Pulse 78 08/03/25 14:01 BP 180/100 H 08/03/25 14:01 Pulse Ox 98 08/03/25 14:01 Oxygen Delivery Method Room Air 08/03/25 14:01 Tobacco/Smoking Status: Tobacco use Status Tobacco use date assessed 08/03/25 08/03/25 14:06 Patient Tobacco Use Status Current everyday Tobacco 08/03/25 14:06 Tobacco use type Cigarette 08/03/25 14:06 PHQ-9: PHQ-9 Score PHQ-9: Total score 0 08/03/25 14:08 Depression Screening Interpretation: Negative Thrive Assessment: Date of Thrive Assessment Date Thrive assessed 03/03/25 08/03/25 14:06 Office Procedures Diabetic Foot Exam Details: + sensation, feet are intact G9226 - Diabetic Foot Exam Coding Level of Care Code Est Pt Level 4 (78591) Est Pt Prev Care >65y(33161) Diagnoses Type 2 diabetes mellitus with diabetic polyneuropathy, with long-term current use of insulin E11.42; Z79.4 Diabetes mellitus manager intermediate insulin use: with manager intermediate use Encounter for routine adult physical exam with abnormal findings Z00. CPT Codes Diabetic Foot Exam - CPT: G9226 - Diabetic Foot Exam ([id number]) Additional Codes PHQ-9 - 84895 - PHQ-9 Billing: Yes ([id number]) Assessment & Plan Assessment & Plan (1) Type 2 diabetes mellitus with diabetic polyneuropathy: Comment: IDDM2 Code(s): E11.42 - Type 2 diabetes mellitus with diabetic polyneuropathy Category: Medical Qualifiers: Diabetes mellitus manager intermediate insulin use: with manager intermediate use Qualified Code(s): E11.42 - Type 2 diabetes mellitus with diabetic polyneuropathy; Z79.4 - assistant terminal manager (current) use of insulin (2) Encounter for routine adult physical exam with abnormal findings: Code(s): Z00.01 - Encounter for general adult medical examination with abnormal findings Category: Medical Plan . Orders: Orders Comprehensive [place]ell. Panel Fast Today E11.42 - Type 2 diabetes mellitus with diabetic polyneuropathy, Z79.4 - assistant terminal manager (current) use of insulin TSH reflex Free T4 Today E11.42 - Type 2 diabetes mellitus with diabetic polyneuropathy, Z79.4 - [facility] (current) use of insulin UA CC w/rflx Micro + Cult Today E11.42 - Type 2 diabetes mellitus with diabetic polyneuropathy, Z79.4 - assistant terminal manager (current) use of insulin Lipid Panel Today E11.42 - Type 2 diabetes mellitus with diabetic polyneuropathy, Z79.4 - [facility] (current) use of insulin Hemoglobin A1c Today E11.42 - Type 2 diabetes mellitus with diabetic polyneuropathy, Z79.4 - [facility] (current) use of insulin Complete Blood Count Auto Diff Today E11.42 - Type 2 diabetes mellitus with diabetic polyneuropathy, Z79.4 - assistant terminal manager (current) use of insulin Referrals Ophthalmology Referral E11.42 - Type 2 diabetes mellitus with diabetic polyneuropathy, Z79.4 - [facility] (current) use of insulin
[2025-08-03 14:35] VITALS: BP 140/80
--- OUTSIDE RECORDS SUMMARY | 2025-08-03 15:13 | XMS_ITS | Clinical Summary ---
Author Organization [employer] Address [address] [place] [address] Care Team Providers Care Laborer [facility] Name Role Phone Unavailable Primary Care Provider Unavailabl e Social History Tobacco Use Types Packs/Day Years Used Date Smoking Tobacco: Never Assessed Sex and Gender Information Value Date Recorded Sex Assigned at Male 06/03/2022 10:15 AM EDT Legal Sex Male 10:15 AM EDT Gender Identity Choose not to disclose 8:55 AM EDT Sexual Orientation Don't know 04/28/2025 8: 55 AM EDT Plan of Treatment Health Maintenance Due Date [...] Vaccines (1 of 2) 2005 COVID-19 Vaccine ( - 2024-2 6 season) 2025 Influenza Vaccine (#1) 2025 RSV [...] patient's age to complete this topic Insurance [facility] STANDARD MEDICARE
== END 2025-08-03 14:52 | disposition home or self-care (01) ==
LOC: HO.HMCC 13:56
PROVIDERS: PCP Nurse Practitioner Family; Visit Provider Nurse Practitioner Family
DX: Z00.01 Encounter for general adult medical examination with abnormal findings (principal); E11.42 Type 2 diabetes mellitus with diabetic polyneuropathy; Z79.4 Long term (current) use of insulin

== ENCOUNTER → 2025-08-03 13:55 | Outpatient (BNVA) | payer MEDICARE, MEDICAID, SELFPAY | PROVIDERS: PCP Nurse Practitioner Family; Visit Provider Nurse Practitioner Family | DX: Z00.01 Encounter for general adult medical examination with abnormal findings (principal); E11.42 Type 2 diabetes mellitus with diabetic polyneuropathy; Z79.4 Long term (current) use of insulin | CPT/HCPCS: 96127; 99397 ==